=== PATIENT | male | born 1950 | race Caucasian/White ===

== ENCOUNTER 2020-08-01 14:18 | Inpatient (IN) | payer MEDICARE, SELFPAY ==
[2020-08-01 14:26] VITALS: BP 152/84; PULSE 78; RESP 18; TEMP 36.6; O2SAT 95; BMI 27.0; BMI 27.1
[2020-08-01 14:56] VITALS: O2SAT 94
--- NOTE | 2020-08-01 16:03 | HP.PCM_ITS ---
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 Started when he was in his 20's (13) Depression Status: Suspected (14) Presbycusis of both ears Status: Chronic (15) Mild left atrial enlargement Status: Chronic (16) Contusion of forehead Status: Acute Qualifiers: Encounter type: subsequent encounter Qualified Code(s): S00.83XD - Contusion of other part of head, subsequent encounter History of Present Illness Date of Admission: 08/01/20 Chief Complaint: debility due to recent PICA ischemic infarct with gait instability, poor static and dynamic balance, poor safety awareness and cognitive dysfunction Fantasma Villaseñor is a 69 YO male With a past medical history of hypertension, HLD, tobacco dependence, presbycusis and heavy alcohol consumption who became lightheaded and fell......tells me he does not know if he lost consciousness. He thinks he just got weak and could not get off the floor. He struck hi head and has a large contusion on the R forehead and he broke the right and left nasal bones and the nasal septum. After he laid there for a few hours he was able to get to a chair. The next day his sister went to see him and he was intoxicated (per the records form [facility] yet his alcohol level was less than 3) and since he had hit his head his sister insisted he go to the ED. CT of the head showed a a subacute ischemic infarct of the R cerebellum. MRA of the cerebral circulation showed stenosis of the right vertebral artery and thrombosis of the posterior inferior cerebellar artery. The right carotid was 20% stenosed and the left carotid was 40% stenosed. An echocardiogram showed a normal ejection fraction of 60% with a mildly enlarged left atrium. There were no wall motion abnormalities. He was transferred from [facility] to [facility] acute inpt rehab on 08/01/20 for > 3 hours of therapy daily to restore function at or near his previous baseline. All records from [facility] were reviewed. Fantasma lives by himself. His 3 years ago. He lives in a trailer and he has steps to enter his home. His sister lives near him. Past Medical History Past Medical History (Chronic Problems): Chronic Problems (Last Updated 08/01/20 @ 14:31 by Celine Nicole) Heavy alcohol use (Chronic) 3-4 beers a day Hypertension (Chronic) Hyperlipidemia (Chronic) Stenosis of right vertebral artery (Chronic) Cervical spondylosis (Chronic) Cervical stenosis of spinal canal (Chronic) Tobacco dependence due to cigarettes (Chronic) 1 PPD currently. Started when he was in his 20's Presbycusis of both ears (Chronic) Mild left atrial enlargement (Chronic) Medical History: Medical History (Last Reviewed 08/01/20 @ 17:[address] Oliva Eden, DO) Alcohol abuse F10.10 Hyperlipemia E78.5 HTN (hypertension) I10 Allergies No Known Allergies Allergy (Verified 08/01/20 14:32) Home Medications: Ambulatory Orders Medication Instructions Recorded Aspirin 81 mg PO 08/01/20 Atorvastatin Calcium [Lipitor] 40 mg PO QHS 08/01/20 Lisinopril [Zestril] 20 mg PO 08/01/20 No122/Iron/Folic Acid 08/01/20 [ Multi Tablet] Thiamine HCl [B-1] 100 mg PO 08/01/20 Surgical History: noncontributory Lives: Alone Smoking Status: Current every day smoker Tobacco Use: Cigarettes - 1 PPD Alcohol: Heavy - 3-4 beers a day for many years. Denies any hard liquor Drugs: None - *Family History Maternal History Items: - - He tells me that his mother at the age of 98 and she passed with old age Paternal History Items: - - father with dementia Sibling History Items: - - He has 5 siblings and he tells me they have no medical pro blems Review of Systems Constitutional: Reports: Weakness. Denies: Anorexia, Chills, Fever Eyes: Denies: Vision Change HEENT: Reports: Difficulty Hearing. Denies: Difficulty Swallowing, Head Aches, Nasal Congestion, Sinus Congestion, Sinus Drainage, Sore Throat Cardiovascular: Reports: Light Headedness - prior to passing out recently. Denies any other syncopal episodes but he does get lightheaded. Denies: Chest Pain, Palpitations Respiratory: Denies: Cough, Shortness of breath at rest, Shortness of breath upon exertion - Tells me that he can walk to the mailbox and back with no SOB., Sputum production Gastrointestinal: Denies: Abdominal Pain, Constipation, Diarrhea, Dyspepsia, Nausea, Vomiting Genitourinary: Denies: Dysuria, Retention Musculoskeletal: Denies: Joint Pain, Joint Tenderness Skin: Reports: Wounds - he has a large contusion on the R forehead and there is dried blood secondary to laceration/abrasion. He also has a skin tear/abrasi onnon the right forearm. Denies: Jaundice, Rash Neurological: Reports: Balance problems. Denies: Change in Speech, Slurred speech, Confusion, Difficulty swallowing, Focal weakness, Numbness, Tingling, Tremor, Seizures Psychiatric: Denies: Anxiety, Depression, Homicidal Ideations, Suicidal Ideations Endocrine: Reports: - - denies any recent wt loss. 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 (Acute) Mass of parotid gland (Acute) masses in BL Parotid glands Cognitive dysfunction (Acute) Depression (Suspected) - Physical Exam Vitals/I&O's: Vital Signs Temp Pulse Resp BP Pulse Ox 97.9 F 78 18 152/84 H 95 08/01/20 14:26 08/01/20 14:26 08/01/20 14:26 08/01/20 14:26 08/01/20 14:26 Oxygen Delivery Method Room Air Weight: 194 lb 0.108 oz Body Mass Index (BMI) 27.0 General: Alert, Oriented x3, Cooperative HEENT: PERRLA, EOMI, Normocephalic, - - large contusion on the R forehead with dried blood/eschar Oral: Dry Mucosa, - - missing teeth Neck: Supple, No JVD, Negative Carotid Bruits, No Nuchal Rigidity, Trachea Midline Lungs: Clear to auscultation, Diminished, - - Not tachypneic, no conversational dyspnea, no accessory muscle use. Cardiovascular: Regular rate, Regular Rhythm, Normal S1, Normal S2, No murmurs, No Gallop, - - heart sounds are distatnt Abdomen: Bowel Sounds Present, Soft, Non Tender, Non-Distended Extremities: No cyanosis, No edema, Capillary Refill Less than 3 Seconds, No Calf Tenderness Skin: No rashes, No breakdown, Skin Tear - R forearm Musculoskeletal: No Tenderness to Palpation of Joints or Extremities, No Muscle Wasting, Arthritic Changes Neurological: Cranial nerves II-XII grossly intact, Neuro grossly intact - grossly intact when lying in bed but when he stands he can not maintain his balance and he is unaware of his deficits. Poor safety awareness, Motor Exam 5/5 strength throughout, Unsteady Gait, Muscle tone normal Psych/Mental Status: Appropriate, Flat Affect Current Medications Bisacodyl (Bisacodyl 10 Mg Suppository) 10 mg RECTAL .PRN X 1 PRN PRN Reason: Constipation Magnesium Hydroxide (Magnesium Hydroxide 30 Ml Udc) 30 ml PO .PRN X 1 PRN PRN Reason: Constipation Senna/Docusate Sodium (Senna/Docusate Sodium 1 Tablet) 2 tablet PO BID [facility] Assessment/Plan All Active Problems (Last Updated 08/01/20 @ 14:31 by Celine Nicole) Closed fracture nose (Acute) Glucose intolerance (impaired glucose tolerance) (Acute) 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 Debility secondary to recent right cerebellar ischemic infarct due to thrombosis of the posterior inferior cerebellar artery. 2. Bilateral carotid stenosis-both less than 50% 3. Mild left atrial enlargement 4. Contusion right forehead-open 5. heavy alcohol use 6. dysrhythmia? If he truly drinks only 3-4 beers a day and he has done this for years I doubt he he fell due to intoxication. I am suspecting he had some sort of cardiac dysrhythmia and passed out.......he does have LAE so maybe AF with RVR? 7. tobacco dependence 8. HLD 9. HTN 10. presbycusis 11. COPD suspected 12. Depression suspected 13. fracture of the R and L nasal bones and the nasal septum due to the fall.......I think he passed out and then face planted with no attempt to break his fall 14. multiple BL parotid masses....painless. Possible Warthin's tumors which are like related to smoking but, could be malignant with combined smoking and drinking PLAN PT for gait stability OT for ADL's ST for evaluation Analgesics as needed Bowel protocol Fall precautions Assess for Anxiety/Depression GI prophylaxis with Lovenox DVT prophylaxis not necessary. No hx of PUD and he has no N/V/abd pain Follow up with Dr. Dario Toscano and neurology following DC from [facility] Rehab AM lab including CMP, CBC, Mag and Phos Holtor at DC and then follow up with cardiology Follow up with ENT post DC for possible BX of parotid tumors Start an SSRI for depression Smoking cessation was discussed with Fantasma and he was advised that cigarette smoking is the leading preventable cause of mortality in the [place]. The 3 major causes of smoking-related mortality are atherosclerotic cardiovascular diseases, lung cancer and COPD. Up to 1/2 of all smokers can expect to of a smoking related illness. Smoking also increases the risk for Infections, Diabetes, Osteoporosis, Reproductive disorders, PUD, peridontal disease and postoperative complications. Nicotine is a potent psychoactive drug that causes physical dependence and tolerance. Nicotine withdrawal sx inluding increased appetite or weight gain, depressed mood, insomnia, irritability, frustration, anxiety, difficulty concentrating and restlessness were discussed. Fantasma was advised that the withdrawal symptoms generally peak in the first 3 days and subside over the next 3-4 weeks but cravings may continue for months to years. Both Behavioral and pharmacologic therapies were discussed with the patient and he was given an opportunity to ask questions. All questions were answered and he was made aware of the smoking cessation program at [facility]. A Nicotine patch was offered but he declined. He has tried this in the past to stop smoking and it did not help. I also advised him to decrease/stop ETOH intake. He has been isolated with very little social contact and this is liekly contributing to depression. He only goes grocery shopping once a week and he mostly sits home and watches TV. He sleeps because he is bore. Best friend moved [address] and he does not visit. 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 He does not exercise. He used to cut wood for exercise but he had back pain and could not do this anymore. Even though the back pain has resolved he did not start chopping wood again. He would likely benefit from psychotherapy going forward. Inpatient E&M: 17668 Init Hosp L3
--- NOTE | 2020-08-01 16:03 | CASEMGMT ---
Social Work Patient with CVA as diagnosis for admission. PHQ-9 assessment completed with score of . Caro TOBAR, ARIELAS
--- NOTE | 2020-08-01 17:50 | PCM.RU.PYE ---
Admission Information Primary Diagnosis:: Physical debility and cognitive dysfunction secondary to recent ischemic right posterior inferior cerebellar artery occlusion with infarct Status Changes from Prescreening?: No changes Identified Actual Problem List:: Falls, Skin Intergrity, Pain, ALteration in Cmfrt, Cognitve Impr/Memory Loss, Depression, Mobility Impaired, Self Care Deficit, BP, Hypertension, Alteration-Leisure Activ. Potential Problem List:: DVT, Bleeding, Infection, UTI, Aspiration, Falls, Skin Integrity, Depression Risk of Complications DVT: LMWH, LETTY Hose Bleeding: Monitor Lab Values, Nursing to Teach Precautions for anti-coagulation therapy., Wound, if applicable, to be assessed every shift., Stroke patients assessed for lethargy or change in status. Infection: Clinical Staff to Monitor for S/S of infection:, S/S of infection include fever, redness, warmth, etc. Urinary Tract Infection: Monitor for frequency, burning, discomfort, or incontinence., Nursing will obtain urine sample for urinalysis and C&S when ordered. Aspiration: Clinical staff will monitor for coughing, drooling, congestion., Speech will evaluate swallowing and dsyphasia., Nursing will monitor patient swallowing during meals. Falls: Patient will be evaluated for Fall Precautions, Patient will be placed on Fall Precautions as indicated per protocol. Skin Breakdown: Nursing will assess skin daily using assessment tool., Nursing will place on Skin Breakdown Precautions as indicated. Pain: Clinical staff will assess patient's pain level per protocol., Medications will be given, if needed, and the pain level reassessed., Other methods: Massage, distraction, decrease stimulus, etc. used PRN. Plan of Care Patient requires physician specializing in physical medicine and rehab oversight to provide close medical supervision of rehab issues including: Pain Management, Sleep Problems, Bowel and Bladder, Medical and co-morbidity Management, DVT prophylaxis, Rehabilitation Leadership, Coordination of treatment team Patient needs Physical Therapy: For a minimum of 1 hour, At least 5 out of 7 days Patient needs Physical Therapy to improve:: Mobility, Mobility, Mobility, Strengthening, Transfers, Stretching, ROM, Endurance, Stairs, Gait, Balance Patient needs Occupational Therapy: For a minimum of 1 hour, At least 5 out of 7 days Patient needs Occupational Therapy to improve ADL's incl.: Eating, Grooming, Bathing, Dressing, Toileting, Toilet transfers, Community Reintegration, Higher functioning activities, Household tasks, Adaptive Equipment, Splinting, Other activities as determined Patient requires speech therapy: For a minimum of 1 hour, At least 5 out of 7 days Patient requires speech therapy for: Swallowing, Cognition, Language Skills, Compensatory Strategies Patient requires 24/ Rehabilitation Nursing for: Pain Issues, Identifying and preventing risk factors, Monitoring and reporting current medical conditions, Assisting with ambulation, transfer, and all ADL's, Teaching patients about disease process and medications, Family teaching, Providing safe environment, Bowel and Bladder Issues, Skin integrity, Medication Management Patient needs Res Habilitation Assistant/ Case Management for: Discharge Planning, Arranging Home Equipment or Services, Family Interventions Patient needs Dietary and Nutrition Services for: Adequate Nutrition, Nutritional Supplements, Nutritional Education Goals Patient will remain: free from falls, or injury at time of discharge. Patient will perform bed mobility at: MOD I level of assist. Patient will complete transfers from bed to chair at: MOD I level of assist. Patient will ambulate: 100 feet, with MOD I assist, with LRD Patient will complete upper body dressing at: MOD I level of assist. Patient will complete lower body dressing at: MOD I level of assist. Patient will complete toileting at: MOD I level of assist. Patient will perform bathing at: MOD I level of assist. Patient will complete grooming at: MOD I level of assist. Patient will complete home management skills at: MOD I level of assist. Patient will achieve: 12 stairs, at MOD I assist Patient will have pain level of: of 3 or less Patient's skin will: remain intact, free from infection. Patient will receive: adequate nutrition. Discharge Planning Pt Prognosis for Sig. Practical Improv. w/in Reasonable Time: Good Estimated Length of stay (days): 21 Anticipated D/C Destination: Home with Home Health Was Preadmission Assessment Accurate?: Yes
[2020-08-01 20:50] VITALS: BP 111/64; BP 123/61; BP 129/60; PULSE 59; PULSE 76; PULSE 80
[2020-08-01] MEDS: Atorvastatin Calcium 40 MG Tablet PO (21:07)
[2020-08-01 22:00] VITALS: BP 104/55; PULSE 83; RESP 18; TEMP 36.7; O2SAT 93
[2020-08-02 06:16] VITALS: BP 123/81; BP 126/67; BP 146/77; PULSE 74; PULSE 85; PULSE 88
[2020-08-02 06:32] VITALS: O2SAT 95
[2020-08-02 06:42] LABS: Hematocrit 44.5 % (40-54); Hemoglobin 15.1 g/dL (13.0-16.5); Mean Corp Hgb Conc 33.9 g/dL (32-36); Mean Corpuscular Hgb 32.5 pg (27.0-32.0); Mean Corpuscular Volume 95.9 fL (80-94); Mean Platelet Vol. 10.7 fl (6.2-12.0); Platelet Count 254 K/mm3 (150-450); RBC Distribution Width CV 12.2 % (11.6-14.6); RBC Distribution Width SD 42.8 fl (35.1-43.9); Red Blood Count 4.64 M/mm3 (4.6-6.2)
[2020-08-02 07:30] VITALS: BP 147/78; PULSE 76; RESP 16; TEMP 36.4; O2SAT 94
[2020-08-02 08:22] LABS: ALB/GLOB Ratio 0.9 RATIO (0.9-2.4); AST(SGOT) 43 U/L (15-37); Alanine Aminotransfer ALT/SGPT 40 U/L (16-61); Albumin, Serum 3.3 g/dL (3.2-5.0); Alkaline Phosphatase 74 U/L (45-117); Anion Gap 7 (5-15); BUN 18 mg/dL (7-18); BUN/Creat Ratio 29.1 RATIO (10-20); Calcium,Total 8.7 mg/dL (8.5-10.1); Chloride 102 mmol/L (98-107); Cholesterol 129 mg/dL (200); Creatinine, Serum 0.62 mg/dL (0.70-1.30); EST Glomerular Filtration Rate 136 mL/min (>60); Est Glom Filt Rate - Afr Amer 165 mL/min (>60); Estimated Creatinine Clearance 72.16 ml/min; Globulin 3.7 g/dL (2.2-4.2); Glucose 99 mg/dL (74-106); High Density Lipoprotein 32 mg/dL; Magnesium 2.1 mg/dL (1.6-2.6); Phosphorus 3.4 mg/dL (2.5-4.9); Potassium 3.9 mmol/L (3.5-5.1); Sodium Level 132 mmol/L (136-145); Triglycerides 95 mg/dL; Very Low Density Lipoprotein 19 mg/dL (5-40)
[2020-08-02] MEDS: Sertraline 50 MG Tablet PO (08:25)
[2020-08-02] MEDS: Thiamine Hydrochloride 100 MG Tablet PO (08:25)
[2020-08-02] MEDS: Aspirin 81 MG TAB.CHEW PO (08:25)
[2020-08-02] MEDS: Lisinopril 20 MG Tablet PO (08:25)
[2020-08-02] MEDS: Enoxaparin 40 MG/0.4 ML Syringe SC (08:25)
[2020-08-02] MEDS: Prenatal Vits Tablet 1 TABLET PO (12:23)
[2020-08-02] MEDS: Atorvastatin Calcium 40 MG Tablet PO (20:40)
[2020-08-02 20:42] VITALS: PULSE 85; RESP 18; O2SAT 94
[2020-08-02] MEDS: Nystatin Powder 15gm Bottle 1 APPLIC TOPICAL (21:46)
[2020-08-02 22:00] VITALS: BP 121/64; PULSE 85; RESP 18; TEMP 36.6; O2SAT 94
[2020-08-03 07:30] VITALS: BP 110/62; BP 121/60; BP 124/91; PULSE 80; PULSE 81
[2020-08-03 08:00] VITALS: O2SAT 96
[2020-08-03] MEDS: Sertraline 50 MG Tablet PO (08:57)
[2020-08-03] MEDS: Enoxaparin 40 MG/0.4 ML Syringe SC (08:57)
[2020-08-03] MEDS: Lisinopril 20 MG Tablet PO (08:57)
[2020-08-03] MEDS: Thiamine Hydrochloride 100 MG Tablet PO (08:58)
[2020-08-03] MEDS: Aspirin 81 MG TAB.CHEW PO (08:58)
[2020-08-03 10:00] VITALS: BP 140/73; PULSE 66; RESP 16; TEMP 36.6; O2SAT 95
[2020-08-03] MEDS: Prenatal Vits Tablet 1 TABLET PO (13:21)
--- NOTE | 2020-08-03 14:00 | NURSING ---
Left patients sister a message regarding team meeting day.
[2020-08-03 18:54] VITALS: BP 122/65; PULSE 66; RESP 17; TEMP 36.6; O2SAT 94
[2020-08-03] MEDS: Atorvastatin Calcium 40 MG Tablet PO (19:53)
[2020-08-03] MEDS: Nystatin Powder 15gm Bottle 1 APPLIC TOPICAL (19:54)
[2020-08-04] MEDS: Enoxaparin 40 MG/0.4 ML Syringe SC (05:02)
[2020-08-04] MEDS: Nystatin Powder 15gm Bottle 1 APPLIC TOPICAL ×2 (05:03→21:55)
[2020-08-04] MEDS: Aspirin 81 MG TAB.CHEW PO (08:11)
[2020-08-04] MEDS: Thiamine Hydrochloride 100 MG Tablet PO (08:11)
[2020-08-04] MEDS: Lisinopril 20 MG Tablet PO (08:11)
[2020-08-04] MEDS: Sertraline 50 MG Tablet PO (08:11)
[2020-08-04 09:11] VITALS: BP 154/71; PULSE 65; RESP 16; TEMP 36.6; O2SAT 92
[2020-08-04] MEDS: Prenatal Vits Tablet 1 TABLET PO (11:37)
--- NOTE | 2020-08-04 19:07 | NURSING ---
UP x1 assist with walker, gait steady. Needs assistance with toileting mod assist and dressing mod assist.
--- NOTE | 2020-08-04 19:10 | NURSING ---
Refused to ambulate with staff in pa when offered.
[2020-08-04] MEDS: Atorvastatin Calcium 40 MG Tablet PO (21:52)
[2020-08-04 22:00] VITALS: BP 150/67; PULSE 81; RESP 16; TEMP 36.3; O2SAT 95
[2020-08-05] MEDS: Enoxaparin 40 MG/0.4 ML Syringe SC (05:42)
[2020-08-05] MEDS: Nystatin Powder 15gm Bottle 1 APPLIC TOPICAL ×2 (05:57→21:25)
[2020-08-05 07:42] VITALS: BP 164/80; PULSE 69; RESP 16; TEMP 36.4; O2SAT 93
[2020-08-05] MEDS: Sertraline 50 MG Tablet PO (08:09)
[2020-08-05] MEDS: Aspirin 81 MG TAB.CHEW PO (08:09)
[2020-08-05] MEDS: Thiamine Hydrochloride 100 MG Tablet PO (08:09)
[2020-08-05] MEDS: Lisinopril 20 MG Tablet PO (08:10)
--- NOTE | 2020-08-05 10:47 | CASEMGMT ---
Social Work IDT met with patient and brother via conference call for Team meeting. Discussed patient's progress in therapy and nursing. Pt progressing well. St working on memory with meds/finances. Pt started on antidepressant. Pt is usually isolated at home and not much interaction with family or friends. Brother offered for pt to stay with sister at DC for a few weeks. Pt doesn't feel he will need the assistance. Explained Medicare approved 23 days with [facility]C 08/25. Will ReTeam next week to continue to discuss progress. SW to assist with DC plans. Will continue to follow. Zuleima Kolb, AMADOU DEEW
[2020-08-05] MEDS: Prenatal Vits Tablet 1 TABLET PO (12:02)
--- NOTE | 2020-08-05 13:14 | PN_ITS ---
Progress Note Merary was seen on team rounds today. His brother Efra participated by phone. Afebrile VSS The systolic BP is frequently mildly elevated but the diastolic is within the target range. He is tilt negative. Maintaining appropriate oxygen saturation on RA Oral intake is good Post void residuals so far have been 255 and 389. Discussed with nursing - no problems that need addressed Reviewed the PT/OT/ST notes Medication list reviewed. He is tolerating the Zoloft with no N/V/stomach upset. All labs from 08/02/2020 was once again reviewed. The CBC is unremarkable. Sodium was mildly decreased at 32 and the BUN is 18 with a creatinine of 0.62. Potassium is 3.9. Magnesium and phosphorus are within normal limits. LFTs are unremarkable. The LDL was 78 which is still not at target but he was only recently started on atorvastatin. The HDL is low at 32. Merary has no complaints today. He denies shortness of breath, cough, sore th roat, nausea, vomiting, abdominal pain, calf pain, dysuria. His brother tells us merary has always related to motor vehicles better than to people. Family seems very supportive. His sister Eva has offered to have Merary Bridgefy to her house for a few weeks after DC but, Merary was immediately opposed to this and stated he can do everything he needs to do for himself without help. Alert, appropriate Mucous membranes are dry, the neck is supple Lungs-clear to auscultation but diminished with no wheezes and no rales Heart-regular rate and rhythm, no ectopy, no gallop Abdomen-soft and nontender No peripheral edema No calf tenderness No rashes and no skin breakdown. The laceration of the right forehead is intact with dried blood present and the sutures are still present. Impressions 1. post stroke debility 2. HLD 3. Low HDL 4. HTN 5. urine retention 6. Hyponatremia 7. hx of heavy ETOH use 8. Depression 9. Tobacco dependence 10. Contusion right forehead secondary to fall requiring sutures 11. Fracture of right and left nasal bones and nasal septum due to a fall 30 day monitor at DC Continue therapy Add Amlodipine 2.5 mg to the current drug regimen for better BP control Check a TSH, urine sodium urine and serum osmolality Will remove the sutures on the 10th Inpatient E&M: 74944 Subs Hosp L2
[2020-08-05 15:22] LABS: Osmolality, Serum 280 mOsm/KG (280-301)
[2020-08-05 15:37] LABS: Thyroid Stim Hormone (TSH) 1.22 uIU/mL (0.358-3.74)
[2020-08-05 20:59] VITALS: BP 151/60; PULSE 82; RESP 16; TEMP 36.5; O2SAT 97
[2020-08-05 21:20] VITALS: PULSE 82; RESP 16; O2SAT 97
[2020-08-05] MEDS: Atorvastatin Calcium 40 MG Tablet PO (21:25)
--- NOTE | 2020-08-06 00:38 | NURSING ---
1999 pt turned monitor and storage bin tender light and by the time the electrician substation arrived pt had transferred himself with his urinal to the br. pt stated to the electrician substation i just couldn't wait'. pt had removed his pa to get to the br, when pt went to stand up and lost his balance and was caught by electrician substation. electrician substation assisted pt back to the bed with the walker and one assist. bed alarm was turned for pt safety. pt reeducated on getting up on own and safety to prevent falls
--- NOTE | 2020-08-06 01:49 | NURSING ---
0045 bed alarm going off and pt was at the foot of the bed getting to get when global cmo entered the room, pt had made no attempt to use call light. global cmo assisted pt to the br and pt had a lg amount of diarrhea , upon returning to bed pt became nauseated and started dry heaving. staff went back to see pt and he denied any intervention needed. will continue to monitor, rn aware
[2020-08-06 03:32] LABS: Urine Sodium 73 mmol/L (Not Establ.)
[2020-08-06 03:45] LABS: Osmolality, Urine 892 mOsm/KG
--- NOTE | 2020-08-06 05:00 | NURSING ---
Reviewed and agree with BORDERER documentation and charting.
[2020-08-06 07:07] VITALS: BP 161/79; PULSE 75; RESP 18; TEMP 36.4; O2SAT 93
[2020-08-06] MEDS: Nystatin Powder 15gm Bottle 1 APPLIC TOPICAL ×2 (07:10→20:41)
[2020-08-06] MEDS: Enoxaparin 40 MG/0.4 ML Syringe SC (07:19)
[2020-08-06] MEDS: Aspirin 81 MG TAB.CHEW PO (08:39)
[2020-08-06] MEDS: Thiamine Hydrochloride 100 MG Tablet PO (08:39)
[2020-08-06] MEDS: amLODIPine 2.5 MG Tablet PO (08:39)
[2020-08-06] MEDS: Lisinopril 20 MG Tablet PO (08:39)
[2020-08-06] MEDS: Sertraline 50 MG Tablet PO (08:39)
[2020-08-06] MEDS: Prenatal Vits Tablet 1 TABLET PO (12:08)
[2020-08-06 20:00] VITALS: PULSE 88; RESP 18; O2SAT 94
[2020-08-06] MEDS: Atorvastatin Calcium 40 MG Tablet PO (20:39)
[2020-08-06 21:02] VITALS: BP 143/64; PULSE 88; RESP 18; TEMP 36.3; O2SAT 94
--- NOTE | 2020-08-07 03:48 | NURSING ---
Reviewed and agree with SNOW PLOW TRACTOR OPERATOR documentation and charting.
[2020-08-07] MEDS: Enoxaparin 40 MG/0.4 ML Syringe SC (04:55)
[2020-08-07] MEDS: Nystatin Powder 15gm Bottle 1 APPLIC TOPICAL ×2 (04:56→20:15)
--- NOTE | 2020-08-07 05:09 | NURSING ---
sutures removed from lacerations from pt forehead as per order, 11 sutures were counted, pt reports that he was to have 15 sutures. scab to laceration was thick and intact to the laceration it was difficult to tell if all the sutures were removed at this time. steri-strips were applied to laceration after cleansing with ns and then left open to air. pt tolerated the removal of the sutures fair. rn aware of the amount of sutures that were removed
[2020-08-07] MEDS: Aspirin 81 MG TAB.CHEW PO (08:04)
[2020-08-07] MEDS: Sertraline 50 MG Tablet PO (08:04)
[2020-08-07] MEDS: Lisinopril 20 MG Tablet PO (08:04)
[2020-08-07] MEDS: amLODIPine 2.5 MG Tablet PO (08:04)
[2020-08-07] MEDS: Thiamine Hydrochloride 100 MG Tablet PO (08:04)
[2020-08-07 08:28] VITALS: BP 148/81; PULSE 78; RESP 16; TEMP 36.3; O2SAT 96
[2020-08-07] MEDS: Prenatal Vits Tablet 1 TABLET PO (13:40)
[2020-08-07] MEDS: Atorvastatin Calcium 40 MG Tablet PO (20:15)
[2020-08-07 22:00] VITALS: BP 142/74; PULSE 76; RESP 16; TEMP 36.6; O2SAT 95
--- NOTE | 2020-08-08 02:28 | NURSING ---
pt having diarrhea. pt cleaned up by peanut sheller
[2020-08-08] MEDS: Enoxaparin 40 MG/0.4 ML Syringe SC (04:04)
[2020-08-08] MEDS: Nystatin Powder 15gm Bottle 1 APPLIC TOPICAL ×2 (04:05→22:52)
[2020-08-08 07:33] VITALS: BP 141/69; PULSE 79; RESP 18; TEMP 36.6; O2SAT 96
[2020-08-08] MEDS: amLODIPine 2.5 MG Tablet PO (08:10)
[2020-08-08] MEDS: Aspirin 81 MG TAB.CHEW PO (08:10)
[2020-08-08] MEDS: Lisinopril 20 MG Tablet PO (08:10)
[2020-08-08] MEDS: Thiamine Hydrochloride 100 MG Tablet PO (08:10)
[2020-08-08] MEDS: Sertraline 50 MG Tablet PO (08:11)
[2020-08-08] MEDS: Loperamide 2 MG Capsule 4 MG PO (09:52)
[2020-08-08] MEDS: Prenatal Vits Tablet 1 TABLET PO (12:36)
--- NOTE | 2020-08-08 15:12 | PN_ITS ---
Progress Note Afebrile VSS Systolic blood pressure is consistently over goal now ranging from 1 41-1 64 over the past 5 days. He was started on Amlodipine on 08/06 Maintaining appropriate oxygen saturation on RA Oral intake is fair at best. Weight has decreased approximately 2 pounds since 08/02/2020. Discussed with nursing - no problems that need addressed Reviewed the PT/OT/ST notes. He is progressing well in therapy. Today he ambulated 117 feet x 4 and 610 feet x 1 with a front wheeled walker at standby assist. He was able to do the NuStep for 10 minutes. He has been able to climb and descend 3 steps. He is able to dress his lower body with contact-guard assist. He is able to perform toilet transfer at standby assist. Medication list reviewed. All recent lab was personally reviewed. Sodium was 132 with a normal serum osmolality and a urine osmolality of 892. The urine random sodium was 73. TSH was normal at 1.22. He had loose stools through the night. Imodium has been ordered PRN and he has refused the stool softeners since admission Denies pain. Denies CP, SOB, palpitations, N/V. Denies lightheadedness Lungs -diminished, not tachypneic, no accessory muscle use, no conversational dyspnea Hard of hearing Heart-regular rate and rhythm, no gallop Abdomen-soft, nontender, nondistended, bowel sounds are normal No peripheral edema No calf tenderness No rashes and no skin breakdown Impressions 1. post stroke debility 2. HTN 3. tobacco dependence 4. heavy alcohol use 5. depression 6. deconditioning due to isolation and sitting in his trailer eatin, watching TV and drinking for the past year COntinue therapy. allow a few days for the Amlodipine to reach a steady state prior to increasing the dose. Mild HTN now I Suspect he may want to go prior to the scheduled DC date of 08/25. He is doing very well. Recheck a BMP in the AM.....if the sodium is still low check a AM cortisol and if it is normal will trial discontinuing the Sertraline since SSRI's can cause hyponatremia Inpatient E&M: 26067 [facility] Hosp L2
[2020-08-08 19:30] VITALS: BP 127/79; PULSE 94; RESP 18; TEMP 36.4; O2SAT 96
[2020-08-08] MEDS: Atorvastatin Calcium 40 MG Tablet PO (22:48)
[2020-08-09] MEDS: Nystatin Powder 15gm Bottle 1 APPLIC TOPICAL ×2 (05:50→22:23)
[2020-08-09] MEDS: Enoxaparin 40 MG/0.4 ML Syringe SC (05:50)
[2020-08-09 07:34] VITALS: BP 134/73; PULSE 79; RESP 16; TEMP 36.6; O2SAT 94
[2020-08-09 10:00] VITALS: PULSE 79; RESP 16; O2SAT 94
[2020-08-09] MEDS: Sertraline 50 MG Tablet PO (10:10)
[2020-08-09] MEDS: Aspirin 81 MG TAB.CHEW PO (10:10)
[2020-08-09] MEDS: Lisinopril 20 MG Tablet PO (10:10)
[2020-08-09] MEDS: amLODIPine 2.5 MG Tablet PO (10:10)
[2020-08-09] MEDS: Prenatal Vits Tablet 1 TABLET PO (11:58)
--- NOTE | 2020-08-09 12:36 | PCM.PN.BLA ---
Progress Note Afebrile VSS Maintaining appropriate oxygen saturation on RA Oral intake is adequate. He seldom goes over 1500 cc daily and is really self restricting his fluids. [] Discussed with nursing - no problems that need addressed Reviewed the PT/OT/ST notes Medication list reviewed. Fantasma has no complaints today Alert, oriented x3, hard of hearing Mucous membranes moist Lungs-clear to auscultation with good air exchange and he has been using the incentive spirometer religiously. No tachypnea, no conversational dyspnea, no accessory muscle use Heart-regular rate and rhythm without ectopy Abdomen-soft, nontender, nondistended, no guarding with palpation No calf pain No ankle edema No rashes and no skin breakdown Impressions 1. Post stroke debility 2. Hyponatremia 3. Hypertension 4. Glucose intolerance 5. Hyperlipidemia 6. Mild left atrial enlargement BMP Wednesday Continue therapy STROKE Vital Signs/Narrative: Vital Signs Pulse Resp Pulse Ox 08/09/20 10:00 79 16 94 Inpatient E&M: [id number] Subs Hosp L1
[2020-08-09 19:48] VITALS: BP 99/62; PULSE 86; RESP 16; TEMP 36.4; O2SAT 94
[2020-08-09] MEDS: Atorvastatin Calcium 40 MG Tablet PO (22:23)
[2020-08-10] MEDS: Enoxaparin 40 MG/0.4 ML Syringe SC (05:24)
[2020-08-10] MEDS: Nystatin Powder 15gm Bottle 1 APPLIC TOPICAL ×2 (05:24→21:08)
[2020-08-10 07:30] VITALS: BP 147/78; PULSE 62; RESP 16; TEMP 36.4; O2SAT 94
[2020-08-10] MEDS: Senna/Docusate Sodium 1 Tablet 2 TABLET PO (08:03)
[2020-08-10] MEDS: Lisinopril 20 MG Tablet PO (08:03)
[2020-08-10] MEDS: Sertraline 50 MG Tablet PO (08:03)
[2020-08-10] MEDS: amLODIPine 2.5 MG Tablet PO (08:04)
[2020-08-10] MEDS: Aspirin 81 MG TAB.CHEW PO (08:05)
[2020-08-10] MEDS: Prenatal Vits Tablet 1 TABLET PO (11:29)
[2020-08-10 18:57] VITALS: BP 129/75; PULSE 96; RESP 18; TEMP 36.4; O2SAT 96
[2020-08-10] MEDS: Atorvastatin Calcium 40 MG Tablet PO (21:07)
[2020-08-11] MEDS: Nystatin Powder 15gm Bottle 1 APPLIC TOPICAL ×2 (05:39→20:14)
[2020-08-11] MEDS: Enoxaparin 40 MG/0.4 ML Syringe SC (05:39)
[2020-08-11 07:00] VITALS: BP 125/64; PULSE 70; RESP 12; TEMP 36.4; O2SAT 94
[2020-08-11] MEDS: Lisinopril 20 MG Tablet PO (08:05)
[2020-08-11] MEDS: Aspirin 81 MG TAB.CHEW PO (08:06)
[2020-08-11] MEDS: amLODIPine 2.5 MG Tablet PO (08:06)
[2020-08-11] MEDS: Sertraline 50 MG Tablet PO (08:06)
--- NOTE | 2020-08-11 11:32 | NURSING ---
encouraged to ambulate in halls with staff and pt refused.
[2020-08-11] MEDS: Prenatal Vits Tablet 1 TABLET PO (13:01)
[2020-08-11 19:36] VITALS: BP 124/63; PULSE 69; RESP 16; TEMP 36.4; O2SAT 95
[2020-08-11] MEDS: Atorvastatin Calcium 40 MG Tablet PO (20:13)
[2020-08-12 06:25] LABS: Anion Gap 5 (5-15); BUN 16 mg/dL (7-18); BUN/Creat Ratio 31.4 RATIO (10-20); Calcium,Total 8.7 mg/dL (8.5-10.1); Chloride 102 mmol/L (98-107); Creatinine, Serum 0.51 mg/dL (0.70-1.30); EST Glomerular Filtration Rate 170 mL/min (>60); Est Glom Filt Rate - Afr Amer 206 mL/min (>60); Estimated Creatinine Clearance 71.12 ml/min; Glucose 109 mg/dL (74-106); Sodium Level 134 mmol/L (136-145)
[2020-08-12] MEDS: Enoxaparin 40 MG/0.4 ML Syringe SC (06:52)
[2020-08-12] MEDS: Nystatin Powder 15gm Bottle 1 APPLIC TOPICAL (06:52)
[2020-08-12 07:36] VITALS: BP 147/67; PULSE 76; RESP 16; TEMP 36.3; O2SAT 96
[2020-08-12] MEDS: Lisinopril 20 MG Tablet PO (07:43)
[2020-08-12] MEDS: amLODIPine 2.5 MG Tablet PO (07:43)
[2020-08-12] MEDS: Sertraline 50 MG Tablet PO (07:43)
[2020-08-12] MEDS: Aspirin 81 MG TAB.CHEW PO (07:44)
[2020-08-12 09:21] VITALS: PULSE 76; RESP 16; O2SAT 96
--- NOTE | 2020-08-12 11:31 | CASEMGMT ---
Social Work IDT met with patient and sister via conference call for Team meeting. Discussed patient's progress in therapy and nursing. Pt is progressing well. Continuing to trail cane and no AD for goal DC. IDT agreeable to DC prior to Medicare 08/25. Pt agreeable for DC 08/19. Siblings can transport. Pt is safe to return home alone with check ins from siblings and supervision for meds/finances. Sister expressed understanding. Pt has no DME needs. Provided resources for MOW as pt is not allowed to drive at DC. Provided HHC list of in network and in location to pt. Pt chose [facility]. Referral made to PT/OT/ST. Plan: DC home alone with [facility] PT/OT/ST, no DME AMADOU Husain
[2020-08-12] MEDS: Prenatal Vits Tablet 1 TABLET PO (11:54)
--- NOTE | 2020-08-12 11:55 | PCM.PN.BLA ---
Progress Note Fantasma was seen on team rounds today. His Sister Rika participated by phone. Afebrile VSS Maintaining appropriate oxygen saturation on RA Oral intake is adequate Discussed with nursing - no problems that need addressed Reviewed the PT/OT/ST notes Medication list reviewed. Fantasma has no complaints. when his sister suggested Fantasma move in with her for a while at DC he was adamant that he wanted to go home. she works fulltime and he would be alone at her home a good deal of the time. He feels he can be by himself at home and we will continue reconsidering plans for discharge as he progresses in therapy. Alert, oriented x3, appropriate Lungs-diminished but clear to auscultation Heart regular rate and rhythm with occasional ectopic beat, no murmur, no gallop Abdomen-soft nontender No peripheral edema No calf tenderness No evidence of infection of the laceration on the right forehead Impressions 1. 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 Mild left atrial enlargement 3. Heavy alcohol consumption daily 4. Hypertension 5. Increased risk for atrial fibrillation secondary to the above 3 conditions 6. Mild hyponatremia-stable and asymptomatic. Work-up in progress Continue therapy All questions were answered STROKE Vital Signs/Narrative: Vital Signs Pulse Resp Pulse Ox 08/12/20 09:21 76 16 96 Inpatient E&M: [id number] Subs Hosp L2
[2020-08-12 19:38] VITALS: BP 147/83; PULSE 84; RESP 16; TEMP 36.5; O2SAT 97
[2020-08-12 20:10] VITALS: PULSE 84; RESP 16; O2SAT 97
[2020-08-12] MEDS: Atorvastatin Calcium 40 MG Tablet PO (20:22)
[2020-08-12] MEDS: Menthol/Lanolin/Calamine/Znox 113 GM Tube 1 APPLIC TOPICAL (20:43)
--- NOTE | 2020-08-13 02:33 | NURSING ---
Reviewed and agree with PHARMACOVIGILANCE SPECIALIST documentation and charting.
[2020-08-13] MEDS: Enoxaparin 40 MG/0.4 ML Syringe SC (04:55)
--- NOTE | 2020-08-13 06:46 | NURSING ---
pt requested to go to the br, staff remained in room while pt was given privacy in the br. staff then hears pt heaving several times then spitting. rn came to check on pt and pt denied vomiting stating he just has to spit alot. staff was unable to assess if pt was actually spitting or if there was emesis in the trash can d/t therapy came into the room to assist pt getting washed for the day. information passed on to day nurse.
[2020-08-13 07:30] VITALS: BP 154/74; PULSE 73; RESP 16; TEMP 36.5; O2SAT 92
[2020-08-13] MEDS: Sertraline 50 MG Tablet PO (07:34)
[2020-08-13] MEDS: Lisinopril 20 MG Tablet PO (07:34)
[2020-08-13] MEDS: Aspirin 81 MG TAB.CHEW PO (07:34)
[2020-08-13] MEDS: amLODIPine 2.5 MG Tablet PO (07:34)
[2020-08-13] MEDS: Senna/Docusate Sodium 1 Tablet 2 TABLET PO ×2 (07:34→20:10)
[2020-08-13] MEDS: Nystatin Powder 15gm Bottle 1 APPLIC TOPICAL ×2 (07:35→20:13)
[2020-08-13] MEDS: Menthol/Lanolin/Calamine/Znox 113 GM Tube 1 APPLIC TOPICAL ×2 (07:35→20:12)
[2020-08-13 10:00] VITALS: PULSE 73; RESP 16; O2SAT 92
--- NOTE | 2020-08-13 11:28 | PCM.PN.BLA ---
Progress Note Afebrile VSS-systolic blood pressure is still often above goal. The diastolic blood pressure is well controlled. He denies dizziness/lightheadedness. Heart rate is within normal limits. Maintaining appropriate oxygen saturation on RA Oral intake is good Discussed with nursing - no problems that need addressed Reviewed the PT/OT/ST notes Medication list reviewed. No complaints. Denies dizziness/lightheadedness, CP, palpitations. No SOB Alert, oriented x3, pleasant, better eye contact Mucous membranes are little dry which is chronic Lungs-diminished but clear to auscultation throughout. Air exchange has improved since admission. Heart-regular rate and rhythm with occasional premature beat, no murmur, no gallop Abdomen-soft, nontender 5/5 strength throughout, cranial nerves II through XII are grossly intact Impressions 1. Post stroke debility 2. 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 Depression-doing better on sertraline 4. Glucose intolerance with a hemoglobin A1c of 6% 5. Hypertension-the goal is less than 130/80 -he was started on amlodipine and this is gradually being increased to achieve the goal. Check an AM cortisol to r/o hypoadrenalism as the etiology of low sodium. TSH is normal. Urine sodium is 73. Urine is less than maximally dilute. If the cortisol is normal then the likely etiology of the mildly decreased sodium is SIADH (possibly related to CVA) or due to SSRI (however the sodium has actually increased since the SSRI was started and I do not believe this is the etiology. DC date will be 08/19....at patient's request. Discussed on rounds yesterday and the therapy TEAM feels he will be ready to go then STROKE Vital Signs/Narrative: Vital Signs Temp Pulse Resp BP Pulse Ox 08/13/20 07:30 97.7 F L 73 16 154/74 H 92 Inpatient E&M: [id number] Subs Hosp L2
[2020-08-13] MEDS: Prenatal Vits Tablet 1 TABLET PO (11:35)
[2020-08-13 19:19] VITALS: BP 148/92; PULSE 84; RESP 18; TEMP 36.6; O2SAT 97
[2020-08-13 20:05] VITALS: BMI 27.0
[2020-08-13] MEDS: Atorvastatin Calcium 40 MG Tablet PO (20:10)
[2020-08-13 22:00] VITALS: PULSE 79; RESP 17; O2SAT 96
[2020-08-14] MEDS: Nystatin Powder 15gm Bottle 1 APPLIC TOPICAL ×2 (05:40→22:17)
[2020-08-14] MEDS: Enoxaparin 40 MG/0.4 ML Syringe SC (05:40)
--- NOTE | 2020-08-14 05:41 | NURSING ---
Pt self transferred to br. Bed alarm activated and pa removed. Pt reminded by staff of safety protocols in place to ensure pt safety.
[2020-08-14 07:58] VITALS: BP 143/75; PULSE 74; RESP 16; TEMP 36.4; O2SAT 97
[2020-08-14] MEDS: amLODIPine 2.5 MG Tablet PO ×2 (09:11→11:25)
[2020-08-14] MEDS: Aspirin 81 MG TAB.CHEW PO (09:11)
[2020-08-14] MEDS: Sertraline 50 MG Tablet PO ×2 (09:11→11:25)
[2020-08-14] MEDS: Lisinopril 20 MG Tablet PO (09:11)
[2020-08-14] MEDS: Menthol/Lanolin/Calamine/Znox 113 GM Tube 1 APPLIC TOPICAL (09:12)
--- NOTE | 2020-08-14 09:23 | PCM.PN.BLA ---
Progress Note Afebrile VSS-blood pressures have been mildly increased for the past 3 days. Goal blood pressure is less than 130/80 given recent stroke. Maintaining appropriate oxygen saturation on RA Oral intake is fair most days he does not even take more than 1 L daily. He has lost 4 lbs since admission to the rehab unit Discussed with nursing - no problems that need addressed Reviewed the PT/OT/ST notes Medication list reviewed. Labs personally reviewed. The a.m. cortisol today is 23.4. No complaints. Denies chest pain, shortness of breath, cough, nausea, vomiting, abdominal pain, dysuria. Denies lightheadedness, palpitations. Alert, talkative and making good eye contact with me today. He is pleasant and has been interacting with staff on a regular basis now. Lungs-diminished with a few coarse crackles in the bases that mostly cleared after a few deep breaths. Not tachypneic, no conversational dyspnea Heart-regular rate and rhythm Abdomen-soft, nontender, nondistended Mucous membranes are moist today No calf pain No ankle edema No rashes and no skin breakdown Impressions 1. post stroke debility 2. HTN - not at goal yet. Goal is less than 130/80 3. tobacco dependence - has received looking cessation counseling on several occasions while in acute rehab. 4. heavy alcohol use 5. depression 6. deconditioning due to isolation and sitting in his trailer eating, watching TV and drinking for the past year 7. Hyponatremia-most likely secondary to SIADH related to the stroke. No need for treatment at this time he is asymptomatic and the hyponatremia is very mild. If the hyponatremia gets worse we will consider discontinuing the SSRI. Increase the Amlodipine to 5 mg daily Since the AM cortisol and the TSH are OK and the urine is less than maximally dilute with a urine sodium > 20 The most likely diagnosis for the mild hyponatremia at this time is SIADH....more likely than not due to the CVA or SSRI (the sodium was low even before the Sertraline was started. Recheck BMP on Wednesday. Increase the Sertraline to 100 mg. He tells me that he feels better and he thinks the Sertraline is helping him. No adverse GI side effects. We discussed the Covid vaccine and he does not think he needs it. He tells me that when he goes to the grocery store once a week he wears a mask and that he does not interact with people. This is part of the problem with his depression. STROKE Vital Signs/Narrative: Vital Signs Temp Pulse Resp BP Pulse Ox 08/14/20 07:58 97.6 F L 74 16 143/75 H 97 Inpatient E&M: [id number] Subs Hosp L2
[2020-08-14] MEDS: Prenatal Vits Tablet 1 TABLET PO (11:25)
[2020-08-14 17:00] VITALS: BMI 27.0
[2020-08-14 22:00] VITALS: BP 133/64; PULSE 71; RESP 18; TEMP 36.6; O2SAT 97
[2020-08-14] MEDS: Atorvastatin Calcium 40 MG Tablet PO (22:15)
[2020-08-15] MEDS: Nystatin Powder 15gm Bottle 1 APPLIC TOPICAL (05:41)
[2020-08-15] MEDS: Enoxaparin 40 MG/0.4 ML Syringe SC (05:42)
[2020-08-15 07:20] VITALS: BP 150/54; PULSE 85; RESP 18; TEMP 36.4; O2SAT 95
[2020-08-15] MEDS: Aspirin 81 MG TAB.CHEW PO (08:20)
[2020-08-15] MEDS: amLODIPine 5 MG Tablet PO (08:21)
[2020-08-15] MEDS: Sertraline 100 MG Tablet PO (08:21)
[2020-08-15] MEDS: Lisinopril 20 MG Tablet PO (08:21)
[2020-08-15 10:52] VITALS: BMI 27.0
[2020-08-15] MEDS: Prenatal Vits Tablet 1 TABLET PO (11:57)
[2020-08-15] MEDS: Ketoconazole Cream 1 APPLIC TOPICAL ×2 (12:23→20:54)
[2020-08-15 20:05] VITALS: BP 152/69; PULSE 77; RESP 16; TEMP 36.6; O2SAT 94
[2020-08-15] MEDS: Atorvastatin Calcium 40 MG Tablet PO (20:55)
[2020-08-16] MEDS: Enoxaparin 40 MG/0.4 ML Syringe SC (06:03)
[2020-08-16 07:41] VITALS: BP 141/82; PULSE 74; RESP 16; TEMP 36.6; O2SAT 96
[2020-08-16] MEDS: Aspirin 81 MG TAB.CHEW PO (07:42)
[2020-08-16] MEDS: amLODIPine 5 MG Tablet PO (07:42)
[2020-08-16] MEDS: Lisinopril 20 MG Tablet PO (07:43)
[2020-08-16] MEDS: Ketoconazole Cream 1 APPLIC TOPICAL ×2 (07:43→22:05)
[2020-08-16] MEDS: Sertraline 100 MG Tablet PO (07:43)
[2020-08-16] MEDS: Prenatal Vits Tablet 1 TABLET PO (11:25)
[2020-08-16 15:17] VITALS: BMI 27.0
[2020-08-16 22:00] VITALS: BP 121/67; PULSE 79; RESP 18; TEMP 36.6; O2SAT 96
[2020-08-16] MEDS: Atorvastatin Calcium 40 MG Tablet PO (22:04)
[2020-08-16] MEDS: Nystatin Powder 15gm Bottle 1 APPLIC TOPICAL (22:06)
[2020-08-17 01:38] VITALS: BMI 27.0
[2020-08-17] MEDS: Enoxaparin 40 MG/0.4 ML Syringe SC (05:44)
[2020-08-17] MEDS: Nystatin Powder 15gm Bottle 1 APPLIC TOPICAL (05:48)
[2020-08-17 07:03] VITALS: BP 164/83; PULSE 74; RESP 16; TEMP 36.3; O2SAT 92
[2020-08-17] MEDS: Lisinopril 20 MG Tablet PO (08:58)
[2020-08-17] MEDS: Aspirin 81 MG TAB.CHEW PO (08:58)
[2020-08-17] MEDS: Ketoconazole Cream 1 APPLIC TOPICAL ×2 (08:58→20:53)
[2020-08-17] MEDS: amLODIPine 5 MG Tablet PO (08:59)
[2020-08-17] MEDS: Sertraline 100 MG Tablet PO (08:59)
[2020-08-17] MEDS: Prenatal Vits Tablet 1 TABLET PO (13:23)
[2020-08-17 16:00] VITALS: BMI 27.0
[2020-08-17 19:20] VITALS: BP 141/76; PULSE 77; RESP 16; TEMP 36.5; O2SAT 98
[2020-08-17] MEDS: Atorvastatin Calcium 40 MG Tablet PO (20:52)
[2020-08-17] MEDS: Menthol/Lanolin/Calamine/Znox 113 GM Tube 1 APPLIC TOPICAL (20:55)
[2020-08-17 21:01] VITALS: BMI 27.0
[2020-08-17 22:00] VITALS: PULSE 77; RESP 16
[2020-08-18] MEDS: Enoxaparin 40 MG/0.4 ML Syringe SC (06:24)
[2020-08-18] MEDS: Nystatin Powder 15gm Bottle 1 APPLIC TOPICAL (06:26)
[2020-08-18 07:26] LABS: Anion Gap 6 (5-15); BUN 17 mg/dL (7-18); BUN/Creat Ratio 33.1 RATIO (10-20); Calcium,Total 8.7 mg/dL (8.5-10.1); Chloride 102 mmol/L (98-107); Creatinine, Serum 0.51 mg/dL (0.70-1.30); EST Glomerular Filtration Rate 168 mL/min (>60); Est Glom Filt Rate - Afr Amer 204 mL/min (>60); Estimated Creatinine Clearance 71.12 ml/min; Glucose 121 mg/dL (74-106); Potassium 3.8 mmol/L (3.5-5.1); Sodium Level 133 mmol/L (136-145)
[2020-08-18] MEDS: Aspirin 81 MG TAB.CHEW PO (07:57)
[2020-08-18] MEDS: amLODIPine 5 MG Tablet PO (07:57)
[2020-08-18] MEDS: Sertraline 100 MG Tablet PO (07:57)
[2020-08-18] MEDS: Lisinopril 20 MG Tablet PO (07:57)
[2020-08-18 08:35] VITALS: BP 142/75; PULSE 75; RESP 16; TEMP 36.3; O2SAT 98
[2020-08-18] MEDS: Prenatal Vits Tablet 1 TABLET PO (12:08)
[2020-08-18 16:02] VITALS: BMI 27.0
[2020-08-18 19:10] VITALS: BP 150/75; PULSE 86; RESP 18; TEMP 36.7; O2SAT 95
[2020-08-18] MEDS: Atorvastatin Calcium 40 MG Tablet PO (21:34)
[2020-08-18] MEDS: Menthol/Lanolin/Calamine/Znox 113 GM Tube 1 APPLIC TOPICAL (21:34)
[2020-08-18 21:35] VITALS: BMI 27.0
[2020-08-18 22:00] VITALS: PULSE 80; RESP 17
[2020-08-19] MEDS: Enoxaparin 40 MG/0.4 ML Syringe SC (06:35)
[2020-08-19 06:59] VITALS: BP 123/66; PULSE 73; RESP 16; TEMP 36.3; O2SAT 95
[2020-08-19] MEDS: Aspirin 81 MG TAB.CHEW PO (08:33)
[2020-08-19] MEDS: amLODIPine 5 MG Tablet PO (08:33)
[2020-08-19] MEDS: Lisinopril 20 MG Tablet PO (08:33)
[2020-08-19] MEDS: Sertraline 100 MG Tablet PO (08:33)
[2020-08-19 09:52] VITALS: BMI 27.0
--- NOTE | 2020-08-19 11:49 | PCM.DC ---
- Discharge Diagnoses Current Active Problems: Current Active and Chronic Problems (Last Reviewed 08/01/20 @ 17:[address] 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 Started when he was in his 20's Presbycusis of both ears (Chronic) Mild left atrial enlargement (Chronic) Contusion of forehead (Acute) You will use the following diet at home:: Calorie/Carbohydrate Controlled (specify 1200, 1400, etc) - Watch the carbohydrates. You are pre-diabetic and if you eat a lot of carbs then you may become diabetic and need medication in the future. Keep your weight stable where it is and try not to gain any weight., Cardiac - Low fat and low salt., Other - avoid drinking more than 1 alcoholic drink a day. Your food should be the consistency of: Regular Your liquids should be the consistency of: Regular/Thin Discharge Activity: May Not Drive - Until you are released by physical and occupational therapy AND your neurologist to drive., May Shower, Use Walker May resume sexual activity in: No Restrictions Lifting Restrictions: not more than 5-10 lbs Additional Activity Instructions:: Do the exercises given to you by the therapists twice a day every day.....make this part of your daily routine. Call your doctor if you observe: Fever of 101 or Higher, Numbness or Tingling, Inability to urinate, Inability to have a bowel movement, Shortness of breath, Dizziness, Fainting spells, Swelling in the ankles, Chest pain, Increased palpitations (irregular heartbeat), Calf discomfort Instructions: Tips for Quitting Smoking (Cardiovascular), Getting Support for Quitting Smoking, Effects of a Stroke on the Brain and Body, Symptoms of Stroke, Stroke: Taking Medications, Atrial Fibrillation Additional Instructions: Go the ED or call 911 immediately if sudden onset: 1. facial droop 2. slurred speech or inability to get words out 3. weakness or numbness on 1 side of the face, arm or leg. 4. vertigo or room spinning 5. loss of vision or trouble seeing in one eye 6. Confusion 7. Trouble walking or maintaining balance and trouble with coordination 8. Sudden severe headache with no known cause A. You worked hard in therapy Fantasma and you have done very well. You have also done well on the anti-depressant. You are making better eye contact, talking and interacting more with people on the unit, smiling and more upbeat. Part of that I think is the drug BUT, part is do to increased socialization and having people to talk with. Try and get out more and talk with friends.......as long as you wear your mask and they wear theirs and you sit 6 feet apart you should be safe. Find some new activities or hobbies you may enjoy.....watching TV is not a hobby [facility]. Visiting with your siblings occasionally would be a good idea. B. You have seborrheic dermatitis. This is a skin condition where the skin on the face gets a red rash with flakey yellow/while scales. You can also get this on the head. I have given you a prescription for Nizoral cream to apply twice a day to the involved areas on the face to control this. If you have a flakey scalp use Head and Shoulders shampoo twice a week to control this. C. You have not smoked for 100 days now. This is a GREAT start toward not smoking. Get rid of all the cigarettes in the trailer so you are not tempted. When you are bored or sad that is when people give in the the cravings. Quitting smoking is VERY important for you. Cigarettes cause the build up of sludge from the tars and nicotine in the cigarettes and this narrows the arteries and this leads to decreased blood flow and strokes or heart attacks. If you have cravings OR you start smoking again the hospital has a smoking cessation program to help you. All you need to do is call the hospital at [phone] and ask the track moving machine operator to connect you with the smoking cessation network programmer. D. You have enlargement of 1 of the upper chambers (called atria) of your heart. This enlargement coupled with high blood pressure and a lot of alcohol consumption can lead to a problem with the rhythm of your heart called Atrial fibrillation or AFIB. This causes increased risk for stroke. I am sending you home with a prescription for a heart monitor that you will wear for 30 days and then you will follow up with the heart doctor to see if you had any AFIB during the 30 days. IF you did then you may need to be put on additional medication to prevent strokes. you will receive the heart monitor in the mail with instructions on what to do. E. It was a pleasure meeting you Fantasma and helping you to get better. If you have any questions after you leave please contact me at [phone] (office) or [phone] (cell). You could also call the rehab unit at [phone]. Take care of yourself Fantasma. Call if you need help with something Fantasma and we will do our best to help you. Allergies/Adverse Reactions: Allergies No Known Allergies Allergy (Verified 08/01/20 14:32) Medications to take at Discharge Amlodipine [Norvasc] 10 mg PO DAILY #30 tab 08/19/20 Aspirin [Aspirin, Baby] 81 mg PO DAILY@0800 tab.chew 08/19/20 Atorvastatin Calcium [Lipitor] 40 mg PO QHS #30 tab 08/19/20 Ketoconazole [Nizoral Cream] 1 applic TOPICAL BID #2 tube 08/19/20 Lisinopril [Zestril] 20 mg PO DAILY #30 tab 08/19/20 Vits [Prenatabs FA ] 1 tab PO DAILY@1200 #30 tab 08/19/20 Sertraline HCl [Zoloft] 100 mg PO DAILY #30 tab 08/19/20 The following prescriptions were given: Atorvastatin Calcium [Lipitor] 40 mg PO QHS #30 tab Transmission Status: Pending to [id number] Ketoconazole [Nizoral Cream] 1 applic TOPICAL BID #2 tube Transmission Status: Pending to [facility][id number] Amlodipine [Norvasc] 10 mg PO DAILY #30 tab Transmission Status: Pending to [id number] Vits [Prenatabs FA ] 1 tab PO DAILY@1200 #30 tab Transmission Status: Pending to [facility][id number] Lisinopril [Zestril] 20 mg PO DAILY #30 tab Transmission Status: Pending to [facility][id number] Sertraline HCl [Zoloft] 100 mg PO DAILY #30 tab Transmission Status: Pending to [id number] Orders to be completed after discharge: 30 Day Event [employer] [[facility]] Location: None Selected Primary Care Physician: Care Physician,No Primary [Primary Care Provider] - Test Results: Test results from this visit will be discussed in further detail at your follow-up appointment, if applicable. Please Follow Up With: Dr. Dario Toscano-PCP When: Wednesday Please Follow Up With: neurology Please Follow Up With: [facility] Proposed Discharge Date: 08/19/20
[2020-08-19] MEDS: Prenatal Vits Tablet 1 TABLET PO (12:19)
[2020-08-19 12:22] VITALS: BP 123/66; PULSE 63; RESP 16; TEMP 36.3; O2SAT 95
--- NOTE | 2020-08-19 12:23 | DS.PCM_ITS ---
Discharge Date and Diagnosis - Problem List Patient Problems: Active and Suspected Problems (Last Reviewed 08/01/20 @ 17:[address] 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 Started when he was in his 20's Depression (Chronic) - much better with the initiation of Sertraline while on rehab unit Presbycusis of both ears (Chronic) Mild left atrial enlargement (Chronic) Hospital Course and Treatment Imaging Results: Laboratory Last Values WBC 10.0 K/mm3 (4.4-11.0) 08/02/20 06:36 RBC 4.64 M/mm3 (4.6-6.2) 08/02/20 06:36 Hgb 15.1 g/dL (13.0-16.5) 08/02/20 06:36 Hct 44.5 % (40-54) 08/02/20 06:36 MCV 95.9 fL (80-94) H 08/02/20 06:36 MCH 32.5 pg (27.0-32.0) H 08/02/20 06:36 MCHC 33.9 g/dL (32-36) 08/02/20 06:36 RDW Std Deviation 42.8 fl (35.1-43.9) 08/02/20 06:36 RDW Coeff of Luis 12.2 % (11.6-14.6) 08/02/20 06:36 Plt Count 254 K/mm3 (150-450) 08/02/20 06:36 MPV 10.7 fl (6.2-12.0) 08/02/20 06:36 Sodium 133 mmol/L (136-145) L 08/18/20 06:50 Potassium 3.8 mmol/L (3.5-5.1) 08/18/20 06:50 Chloride 102 mmol/L (98-107) 08/18/20 06:50 Carbon Dioxide 25.0 mmol/L (21.0-32.0) 08/18/20 06:50 Anion Gap 6 (5-15) 08/18/20 06:50 BUN 17 mg/dL (7-18) 08/18/20 06:50 Creatinine 0.51 mg/dL (0.70-1.30) L 08/18/20 06:50 Estim Creat Clear Calc 71.12 ml/min 08/18/20 06:50 Est GFR (MDRD) Af Amer 204 mL/min (>60) 08/18/20 06:50 Est GFR (MDRD) Non-Af 168 mL/min (>60) 08/18/20 06:50 BUN/Creatinine Ratio 33.1 RATIO (10-20) H 08/18/20 06:50 Glucose 121 mg/dL (74-106) H 08/18/20 06:50 Serum Osmolality 280 mOsm/KG (280-301) 08/05/20 14:56 Calcium 8.7 mg/dL (8.5-10.1) 08/18/20 06:50 Phosphorus 3.4 mg/dL (2.5-4.9) 08/02/20 06:36 Magnesium 2.1 mg/dL (1.6-2.6) 08/02/20 06:36 Total Bilirubin 0.80 mg/dL (0.20-1.00) 08/02/20 06:36 AST 43 U/L (15-37) H 08/02/20 06:36 ALT 40 U/L (16-61) 08/02/20 06:36 Alkaline Phosphatase 74 U/L (45-117) 08/02/20 06:36 Total Protein 7.0 g/dL (6.4-8.2) 08/02/20 06:36 Albumin 3.3 g/dL (3.2-5.0) 08/02/20 06:36 Globulin 3.7 g/dL (2.2-4.2) 08/02/20 06:36 Albumin/Globulin Ratio 0.9 RATIO (0.9-2.4) 08/02/20 06:36 Triglycerides 95 mg/dL (-199) 08/02/20 06:36 Cholesterol 129 mg/dL (200) 08/02/20 06:36 LDL Cholesterol 78 mg/dL (0-130) 08/02/20 06:36 VLDL Cholesterol 19 mg/dL (5-40) 08/02/20 06:36 HDL Cholesterol 32 mg/dL (40-) L 08/02/20 06:36 TSH 1.22 uIU/mL (0.358-3.74) 08/05/20 14:56 Cortisol 23.40 ug/dL (3.44-22.45) H 08/14/20 05:45 Urine Osmolality 892 mOsm/KG (50-) 08/06/20 03:15 Ur Random Sodium 73 mmol/L (Not Establ.) 08/06/20 03:15 none Operations: None Procedures: None Summary of Care Provided: Fantasma Villaseñor is a 69 YO male with a past medical history of hypertension, HLD, tobacco dependence, presbycusis and heavy alcohol consumption who became lightheaded and fell. He thinks he just got weak and then could not get off the floor. He struck his head and sustained a large contusion on the R forehead. He broke the right and left nasal bones and the nasal septum. He had a laceration that required suturing. After he laid there for a few hours he was able to get to a chair. The next day his sister went to see him and he was intoxicated (per the records form [facility] yet his alcohol level was less than 3) and since he had hit his head his sister insisted he go to the ED. CT of the head showed a a subacute ischemic infarct of the R cerebellum. MRA of the cerebral circulation showed stenosis of the right vertebral artery and thrombosis of the posterior inferior cerebellar artery. The right carotid was 20% stenosed and the left carotid was 40% stenosed. An echocardiogram showed a normal ejection fraction of 60% with a mildly enlarged left atrium. There were no wall motion abnormalities. He was transferred from [facility] to [facility] acute inpt rehab on 08/01/20 for > 3 hours of therapy daily to restore function at or near his previous baseline. Lab at admission to rehab showed an unremarkable CBC with a hemoglobin of 15.1. MCV was mildly increased at 95.9. Sodium was low at 132 and the potassium was 3.9. Serum bicarb was mildly decreased at 23 and the BUN was 18 with a creatinine of 0.62. Serum osmolality was within normal limits and the urine osmolality was 892 which is far from maximally dilute. Urine sodium was 73. A.m. cortisol and TSH were within normal limits. Prior to discharge a sodi um was stable at 133-134. 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 He was discharged on an SSRI which can cause hyponatremia however he was hyponatremic prior to starting the sertraline and the sodium is stable. Fluids were not restricted because he very seldom drinks more than 1500 cc's per day and he is asymptomatic. HGBA1C is 6% and he was instructed in a consistent carbohydrate intake during his admission to rehab. Fantasma lives in a trailer and his best friend moved 2 hours away. For the past year he has been isolating in his trailer eating, drinking alcohol daily and watching TV. He goes out only once a week to get groceries. He was place on Sertraline at admission to the unit and he has done quite well. He makes eye contact now, his voice id modulated, he interacts with staff and his mood is more upbeat. He acknowledges that he is feeling better. Fantasma has done quite well with therapy. Prior to discharge he was supervision with all ADL's. He was able to do 11 sit to stands in 30 seconds at discharge. He has ascended and descended 13 steps using 2 rails at standby assist. He has ambulated up to 915 feet on various surfaces with a wheeled walker at standby assist/contact-guard assist. He was discharged on 08/19/20 and will have HHC with [facility] for PT/OT/ST. Smoking cessation counselling was given during his admission and at the time of DC he had not smoked for 100 days. He intends to quit and was given printed literature prior to DC on where to get help if he has cravings or starts smoking again. He was given a prescription for a 30 day event monitor prior to DC because I suspect he may be having PAF. He has LAE and he drinks ETOH everyday. He also has HTN and these 3 things all increase his risk for PAF. He will follow up with [facility] at the conclusion of the 30 days. He has an chad to follow up with Dr. Dario Toscano post DC and he should also follow up with neurology. He has a WW at home and a shower chair and he did not need any DME at DC. He will need to have a liver panel and a cholesterol panel in another 2-4 weeks. General: Alert, Oriented x3, Cooperative, making good eye contact, not distracted by the TV, good modulation in his voice and very pleasant HEENT: PERRLA, EOMI, Normocephalic, there is still a small scar over the R forehead above the eye. the laceration is intact with no dehiscence, no erythema and no DC Oral: missing teeth, MM are chronically a little dry Neck: Supple, No JVD, Negative Carotid Bruits, No Nuchal Rigidity, Trachea Midline Lungs: Clear to auscultation, Diminished, - - Not tachypneic, no conversational dyspnea, no accessory muscle use. Cardiovascular: Regular rate, Regular Rhythm, Normal S1, Normal S2, No murmurs, No Gallop, - - heart sounds are distatnt Abdomen: Bowel Sounds Present, Soft, Non Tender, Non-Distended Extremities: No cyanosis, No edema, Capillary Refill Less than 3 Seconds, No Calf Tenderness Skin: No rashes, No breakdown, Skin Tear - R forearm has healed Musculoskeletal: No Tenderness to Palpation of Joints or Extremities, No Muscle Wasting, Arthritic Changes Neurological: Cranial nerves II-XII grossly intact, Neuro grossly intact. static balance is much improved and with the WW he is able to maintain his bal ance with ambulation. He is SBA with ambulation. Psych/Mental Status: Appropriate, pleasant, good mood and more upbeat. This note was generated with Fug[employer] software. It may contain incorrect words, spelling, and punctuation that were not noted in checking the note before signing. Patient Problems: Active and Suspected Problems (Last Reviewed 08/01/20 @ 17:[address] 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 (Acute) Cognitive dysfunction (Acute) Contusion of forehead (Acute) - Physical Exam Vitals/I&O's: Vital Signs Temp Pulse Resp BP Pulse Ox 97.4 F L 73 16 123/66 H 95 08/19/20 06:59 08/19/20 06:59 08/19/20 06:59 08/19/20 06:59 08/19/20 06:59 Oxygen Delivery Method Room Air Weight: 190 lb 11.198 oz Body Mass Index (BMI) 27.0 Orthostatic Vital Signs Start: 08/01/20 23:40 Freq: Status: Active Protocol: Activity Type Activity Date Activity User E-Sign Co-Sign Detail Recorded Client Recorded Date Recorded By Document 08/03/20 07:30 RMB [id number] 08/04/20 12:49 RMB 08/03/20 07:30 Orthostatic Vitals Standing -Blood Pressure (90/60-120/80 mm Hg) 121/60 H -Extremity Use Right Arm -Pulse Rate (60-100 beats/min) 80 Sitting -Blood Pressure (90/60-120/80 mm Hg) 110/62 -Extremity Use Right Arm -Pulse Rate (60-100 beats/min) 81 Lying -Blood Pressure (90/60-120/80 mm Hg) 124/91 H -Extremity Use Right Arm -Pulse Rate (60-100 beats/min) 80 Intake and Output for Last 24 Hours 08/17/20 08/18/20 08/19/20 23:59 23:59 23:59 Intake Total 1220 / 1220 1420 / 1420 720 / 720 Output Total 450 / 450 650 / 650 300 / 300 Balance 770 / 770 770 / 770 420 / 420 Current Medications Amlodipine Besylate (Amlodipine 5 Mg Tablet) 5 mg PO DAILY RUPAL Last Admin: 08/19/20 08:33 Dose: 5 mg Documented by: Aspirin (Aspirin 81 Mg Tab.Chew) 81 mg PO DAILY@0800 [facility] Last Admin: 08/19/20 08:33 Dose: 81 mg Documented by: Atorvastatin Calcium (Atorvastatin Calcium 40 Mg Tablet) 40 mg PO QHS [facility] Last Admin: 08/18/20 21:34 Dose: 40 mg Documented by: Bisacodyl (Bisacodyl 10 Mg Suppository) 10 mg RECTAL .PRN X 1 PRN PRN Reason: Constipation Calamine/Phenol (Menthol/Lanolin/Calamine/Znox 113 Gm Tube) 1 applic TOPICAL BID [facility]; Protocol Last Admin: 08/19/20 08:35 Dose: Not Given Documented by: Enoxaparin Sodium (Enoxaparin 40 Mg/0.4 Ml Syringe) 40 mg SC DAILY@0600 [facility] Last Admin: 08/19/20 06:35 Dose: 40 mg Documented by: Ketoconazole (Ketoconazole Cream) 1 applic TOPICAL BID [facility]; Protocol Last Admin: 08/19/20 08:35 Dose: Not Given Documented by: Lisinopril (Lisinopril 20 Mg Tablet) 20 mg PO DAILY [facility] Last Admin: 08/19/20 08:33 Dose: 20 mg Documented by: Loperamide HCl (Loperamide 2 Mg Capsule) 4 mg PO Q6H PRN PRN PRN Reason: DIARRHEA/LOOSE STOOLS Last Admin: 08/08/20 09:52 Dose: 4 mg Documented by: Magnesium Hydroxide (Magnesium Hydroxide 30 Ml Udc) 30 ml PO .PRN X 1 PRN PRN Reason: Constipation Nystatin (Nystatin Powder 15gm Bottle) 1 applic TOPICAL BID@0600,2200 [facility]; Protocol Last Admin: 08/19/20 06:35 Dose: Not Given Documented by: Multivit/Folic Acid/Iron ( Vits Tablet) 1 tablet PO DAILY@1200 [facility] Last Admin: 08/19/20 12:19 Dose: 1 tablet Documented by: Senna/Docusate Sodium (Senna/Docusate Sodium 1 Tablet) 2 tablet PO BID [facility] Last Admin: 08/19/20 08:34 Dose: Not Given Documented by: Sertraline HCl (Sertraline 100 Mg Tablet) 100 mg PO DAILY [facility] Last Admin: 08/19/20 08:33 Dose: 100 mg Documented by: Discharge Activity: May Not Drive - Until you are released by physical and occupational therapy AND your neurologist to drive., May Shower, Use Walker May resume sexual activity in: No Restrictions Additional Activity Instructions:: Do the exercises given to you by the therapists twice a day every day.....make this part of your daily routine. Call your doctor if you observe: Fever of 101 or Higher, Numbness or Tingling, Inability to urinate, Inability to have a bowel movement, Shortness of breath, Dizziness, Fainting spells, Swelling in the ankles, Chest pain, Increased palpitations (irregular heartbeat), Calf discomfort Home Medications: Medications to take at Discharge Amlodipine [Norvasc] 10 mg PO DAILY #30 tab 08/19/20 Aspirin [Aspirin, Baby] 81 mg PO DAILY@0800 tab.chew 08/19/20 Atorvastatin Calcium [Lipitor] 40 mg PO QHS #30 tab 08/19/20 Ketoconazole [Nizoral Cream] 1 applic TOPICAL BID #2 tube 08/19/20 Lisinopril [Zestril] 20 mg PO DAILY #30 tab 08/19/20 Vits [Prenatabs FA ] 1 tab PO DAILY@1200 #30 tab 08/19/20 Sertraline HCl [Zoloft] 100 mg PO DAILY #30 tab 08/19/20 Following Prescriptions Were Given to Patient: Atorvastatin Calcium [Lipitor] 40 mg PO QHS #30 tab Transmission Status: Pending to [id number] Ketoconazole [Nizoral Cream] 1 applic TOPICAL BID #2 tube Transmission Status: Pending to [facility][id number] Amlodipine [Norvasc] 10 mg PO DAILY #30 tab Transmission Status: Pending to [facility][id number] Vits [Prenatabs FA ] 1 tab PO DAILY@1200 #30 tab Transmission Status: Pending to [facility][id number] Lisinopril [Zestril] 20 mg PO DAILY #30 tab Transmission Status: Pending to [facility][id number] Sertraline HCl [Zoloft] 100 mg PO DAILY #30 tab Transmission Status: Pending to [facility][id number] Other Amb Orders: 30 Day Event Recorder [facility] [[facility]] Location: None Selected Primary Care Physician: Care Physician,No Primary [Primary Care Provider] - Please Follow Up With: Dr. Dario Toscano-PCP When: Wednesday Please Follow Up With: neurology Please Follow Up With: [facility] Patient Instructions: Effects of a Stroke on the Brain and Body, Tips for Quitting Smoking (Cardiovascular), Symptoms of Stroke, Stroke: Taking Medications, Getting Support for Quitting Smoking, Atrial Fibrillation Disposition: Home with Home Health Minutes spent on discharge:: 45 Patient Condition:: Good Medical Necessity - Tobacco Use Smoking Status: Former smoker - quit at admisison to the hospital for acute CVA July 2020 Tobacco Use: Cigarettes Meaningful Use Info Meaningful Use Diagnoses (Choose all that apply): Ischemic CVA - CVA Therapy Assessed for PT,OT and/or ST?: Yes - Ischemic Stroke Antithrombotic order at d/c?: Yes Dx of Atrial fib/flutter?: No Anticoagulant at discharge?: No Reason anticoagulant not ordered: Treatment not Indicated Statins at discharge?: Yes Primary Dx Acute Ischemic CVA?: Yes IV tPA ordered during stay?: No Reason IV t-PA not ordered: Treatment not Indicated - outside the window Inpatient E&M: [id number] Disch Hosp
--- NOTE | 2020-08-19 16:49 | NURSING ---
Addendum entered by Karina Alicia 08/19/20 18:56: Brother manolo aware of appt with Dr Lucero 4-[address] Saunders office called 2x's with no call back and brother given office number and he will call again tomorrow to that office to make his brother appt. Original Note: Family aware of all appts, heart monitor to be delivered, pt verbalized understanding.
== END 2020-08-19 13:30 | disposition home health service (06) | DRG 560 ==
PROVIDERS: Admitting Provider Internal Medicine; Referring Provider Internal Medicine; Visit Provider Internal Medicine
DX: S02.2XXD Fracture of nasal bones, subsequent encounter for fracture with routine healing (principal); E22.2 Syndrome of inappropriate secretion of antidiuretic hormone; W19.XXXD Unspecified fall, subsequent encounter; S00.83XD Contusion of other part of head, subsequent encounter; I10 Essential (primary) hypertension; E78.5 Hyperlipidemia, unspecified; R73.02 Impaired glucose tolerance (oral); M47.812 Spondylosis without myelopathy or radiculopathy, cervical region; F17.210 Nicotine dependence, cigarettes, uncomplicated; M48.02 Spinal stenosis, cervical region; I69.398 Other sequelae of cerebral infarction; R26.89 Other abnormalities of gait and mobility; F10.10 Alcohol abuse, uncomplicated; H91.13 Presbycusis, bilateral; F32.9 Major depressive disorder, single episode, unspecified; E74.39 Other disorders of intestinal carbohydrate absorption
CPT/HCPCS: 36415; 80048; 80053; 80061; 82533; 83735; 83930; 83935; 84100; 84300; 84443; 85027; 92507; 92523; 92526; 92610; 97110; 97112; 97116; 97162; 97166; 97530; 97535; 97802; 99251; 99406; G0463

== ENCOUNTER → 2020-10-28 07:07 | Outpatient (CLI) | payer MEDICARE, OTHER, SELFPAY ==
[2020-10-02 10:35] VITALS: BMI 25.1
[2020-10-10 10:05] VITALS: BMI 27.6
--- NOTE | 2020-10-28 17:48 | STRESSREP ---
Stress Test Report Pharmacologic myocardial perfusion stress test. 70-year-old man with a history of hypertension, hyperlipidemia, tobacco abuse and palpitations. Stress protocol: Resting EKG demonstrates normal sinus rhythm with a rate of 72 bpm normal intervals are noted. Resting blood pressure is 134/66 mmHg. The patient initially exercised on a Cesario protocol for a total duration of 1 minute and 32 seconds. The maximum heart rate attained was 106 bpm which was 71% of maximum predicted heart rate the patient was unable to walk on the treadmill and this was therefore changed to a Lexiscan. 0.4 mg of regadenoson was infused per usual protocol followed by rapid intravenous saline flush injection continuous EKG monitoring was performed. At rest there were no ST or T wave changes noted to suggest abnormal flow reserve at peak infusion nonspecific ST changes were noted with no evidence of ischemia. The final blood pressure was 122/68 mmHg. Myocardial perfusion protocol. 11.3 mCi of technetium 99m sestamibi was injected at rest. 0.4 mg of regadenoson was infused per usual protocol. At peak infusion 32.9 mCi of technetium 99m sestamibi was injected stress images were obtained stress and rest images were reconstructed and compared in the short axis vertical long and horizontal long axis. Gated images were also obtained. Perfusion SPECT analysis: Review of the stress images demonstrate normal perfusion in all areas of the myocardium. The resting images similarly demonstrated normal perfusion in all areas of the myocardium. No areas of reversibility are noted to suggest ischemia and no previous infarct is noted. Gated SPECT analysis: The gated ejection fraction is noted to be 65%. Conclusion: Normal pharmacologic myocardial perfusion stress test. Preserved ejection fraction.
== END ==
PROVIDERS: PCP Family Medicine; Referring Provider Internal Medicine Cardiovascular Disease; Visit Provider Internal Medicine Cardiovascular Disease
DX: I25.10 Atherosclerotic heart disease of native coronary artery without angina pectoris (principal); I63.542 Cerebral infarction due to unspecified occlusion or stenosis of left cerebellar artery; I48.91 Unspecified atrial fibrillation; I48.92 Unspecified atrial flutter
CPT/HCPCS: 78452; 93017; 93225; 93226; A9500; A4216; J2785

== ENCOUNTER → 2020-10-29 12:51 | Outpatient (CLI) | payer MEDICARE, OTHER, SELFPAY ==
[2020-10-10 10:05] VITALS: BMI 27.6
--- NOTE | 2020-10-29 12:53 | ART_ITS ---
Reason For Study: Absent distal pulses in lower extremities Procedure A bilateral lower extremity continuous wave Doppler with analog waveform analysis and ankle brachial indexes. Left Segmental Pressures Left brachial= 128mmHg. Left posterior tibial artery = 86mmHg. Left dorsalis pedis artery = 79mmHg. Left digit = 46 mmHg. The left dorsalis pedis waveforms are monophasic. The left posterior tibial artery waveforms are monophasic. Right Segmental Pressures Right brachial= 133mmHg. Right posterior tibial artery = 76mmHg. Right dorsalis pedis artery = 70mmHg. Right digit = 37 mmHg. The right dorsalis pedis waveforms are monophasic. The right posterior tibial artery waveforms are monophasic. Indices The right ankle brachial index by the posterior tibial artery is 0.57. The right ankle brachial index by the dorsalis pedis is 0.53. The right digital-brachial index is 0.28. The left ankle brachial index by the posterior tibial artery is 0.65. The left ankle brachial index by the dorsalis pedis is 0.59. The left digital-brachial index is 0.35. VL/Ankle Brachial Index Interpretation Summary Moderately severe bilateral extremity arterial occlusive disease based upon love ateral PT and DP ankle-brachial indices. A more severe level disease suggested by bilateral posterior tibial and dorsali s pedis Doppler waveforms being only monophasic. Abnormal bilateral digital brachial indices Ordering Physician: Khanh Saunders Referring Physician: Dario Toscano MD Performed By: Ruthann Vargas RVT and Student
== END ==
PROVIDERS: PCP Family Medicine; Visit Provider Psychiatry & Neurology Neurology
DX: I73.9 Peripheral vascular disease, unspecified (principal)
CPT/HCPCS: 93922

== ENCOUNTER 2022-09-07 00:40 | Inpatient (IN) | payer MEDICARE, OTHER, SELFPAY ==
[2022-09-07] VITALS (32 sets, daily range): BP systolic 97–143; BP diastolic 43–85; PULSE 77–114; RESP 12–28; TEMP 36.6–36.7; O2SAT 80–100; BMI 24.6; BMI 23.0; BMI 23.1
--- NOTE | 2022-09-07 01:00 | EKG12_ITS ---
Test Reason : SOB Blood Pressure : / mmHG Vent. Rate : 112 BPM Atrial Rate : 112 BPM P-R Int : 140 ms QRS Dur : 074 ms QT Int : 352 ms P-R-T Axes : 087 -70 042 degrees QTc Int : 480 ms Sinus tachycardia Left axis deviation Abnormal ECG Confirmed by SHAHNAZ SCHMID, GERTRUDE ([id number]), metropolitan editor TIFFANI WHITE ([id number]) on 09/09/2022 10:02:56 AM Referred By: Confirmed By:GERTRUDE CHRISTIE MD
--- NOTE | 2022-09-07 01:00 | RAD_ITS ---
EXAM: XR CHEST, 2 VIEWS CLINICAL INDICATION: cough TECHNIQUE: Frontal and lateral views of the chest. This report was created using [employer] report generation technology. COMPARISON: None. FINDINGS: LUNGS AND PLEURAL SPACES: Patchy and hazy opacity in the right middle lobe and mild hazy dependent opacity in the lung base on the lateral view and medial right lung base on the frontal view. Bilateral mild pleural effusions blunting the posterior costophrenic angles and lateral costophrenic angles. No pneumothorax. HEART: Unremarkable. Normal heart size. MEDIASTINUM: Central airways and mediastinal contour are unremarkable. BONES/JOINTS: Unremarkable. SOFT TISSUES: Multiple compression deformities of lower thoracic bodies appear chronic. VASCULATURE: Mildly peripherally calcified ectatic aorta no evidence of daylin aneurysm. RAD/Chest PA and Lateral IMPRESSION: Bibasilar pulmonary opacities and effusions. Suspicious for edema or multifocal pneumonia. Electronically Signed: Miranda Schwarz MD at 2:50 EDT ,
--- NOTE | 2022-09-07 01:01 | ED.VIS.DYS ---
HPI History of Present Illness Chief Complaint: Shortness of Breath Informant: patient and SNF Narrative Narrative: Sent in from [facility] increasing dyspnea cough. He has been there for day. Apparently reported admitted to [facility] after being found down in his home for 3 days. He states he was there for a week. He reports he does wear oxygen however he does not know how much. Nursing unclear also if he was on room air they will call. He has a Soto catheter he has dressings to his foot. He has been ambulating with a walker per patient. He denies COPD asthma or heart failure history. For medication review blood pressure cholesterol issues with reflux. He is also on Bactrim for foot wound. BPH medications. Patient reports nonvaccinated for COVID or flu denies COVID infections in the past. [facility] Medical History (Updated 09/07/22 @ 03:[address] Laura Daly MD) Anxiety and depression Bilateral carotid artery stenosis Cervical spondylosis Cervical stenosis of spinal canal Cognitive dysfunction Essential (primary) hypertension Glucose intolerance (impaired glucose tolerance) History of alcohol abuse History of stroke (08/01/20) Hyperlipidemia Hyponatremia Mass of parotid gland Peripheral vascular occlusive disease Presbycusis of both ears Stenosis of right vertebral artery Tobacco dependence due to cigarettes Home Medications amlodipine 10 mg tablet 10 mg PO DAILY #30 tabs 08/19/20 [Rx Last Taken Unknown] atorvastatin 40 mg tablet 40 mg PO QHS #30 tabs 08/19/20 [Rx Last Taken Unknown] ascorbic acid (vitamin C) 500 mg tablet (Vitamin C) 500 mg PO DAILY 09/07/22 [History Last Taken Unknown] cephalexin 500 mg capsule 500 mg PO TID 09/07/22 [History Last Taken Unknown] lisinopril 20 mg tablet 20 mg PO QHS 09/07/22 [History Last Taken Unknown] multivitamin,tx-minerals 1 tab PO DAILY 09/07/22 [History Last Taken Unknown] pantoprazole 40 mg tablet,delayed release 40 mg PO BID 09/07/22 [History Last Taken Unknown] sertraline 100 mg tablet 100 mg PO DAILY 09/07/22 [History Last Taken Unknown] sulfamethoxazole 800 mg-trimethoprim 160 mg tablet 2 tab PO DAILY foot wound 09/07/22 [History Last Taken Unknown] tamsulosin 0.4 mg capsule 0.4 mg PO DAILY 09/07/22 [History Last Taken Unknown] Allergy/AdvReac Type Severity Reaction Status Date / Time No Known Allergies Allergy Verified 07/13/22 13:01 Family History (Updated 09/07/22 @ 04:[address] Laura Daly MD) Father Dementia Mother Dementia Social History (Updated 09/07/22 @ 04:[address] Laura Daly MD) household members: none Smoking Status: Current every day smoker tobacco type: cigarettes Smoking packs per day: 1 Smoking cigarettes per day: 20.0 Tobacco: How many years used: 40 Electronic Cigarette Use: with nicotine second hand exposure: Yes alcohol intake: former year quit: 2020 substance use type: does not use caffeine: Yes (4 cups daily) Type: coffee seatbelt use: sometimes ROS ROS ED Constitutional Constitutional ED: Denies chills, fever(s) or sweats Eyes Eyes: Denies change in vision ENT ENT ED: Denies dysphagia or sore throat Cardiovascular Cardiovascular: Denies chest pain, leg edema, palpitations or racing heartbeat Respiratory/Chest Respiratory/Chest: Reports cough and dyspnea; Denies dyspnea on exertion Gastrointestinal Gastrointestinal: Denies abdominal pain, diarrhea, nausea or vomiting Genitourinary Genitourinary ED: Denies dysuria, hematuria or urinary frequency Musculoskeletal Musculoskeletal: Denies back pain, extremity pain or neck pain Integumentary Denies rash or wounds Neurologic Neurologic: Denies headache(s), paresthesias or weakness EXAM Physical Exam Const Vital Signs: 09/07/22 00:44 09/07/22 00:57 09/07/22 03:27 Temperature 98.1 F 98.1 F Temperature Source Oral Temporal Pulse Rate 112 H 114 H Respiratory Rate 21 H 21 H Respiratory Effort Short of Breath Respiratory Depth Normal Respiratory Pattern Tachypnea Blood Pressure 97/52 L 117/62 Blood Pressure Mean 67 80 Pulse Ox 93 98 Oxygen Delivery Method Nasal Cannula Nasal Cannula Room Air Oxygen Flow Rate (L/min) 4 4 2 Constitutional Narrative: Nontoxic alert and oriented x3, however cannot tell me his reason for hospitalization recently. Currently on 4 L nasal cannula HEENT Reports moist mucous membranes normocephalic and atraumatic Eyes PERRL, EOMs intact bilaterally and conjunctivae normal General Eye ED: Yes normal appearance of both eyes Neck no lymphadenopathy and supple General: Negative for tenderness Chest Wall Chest: Negative for tenderness Resp Resp Narrative: Coarse breath sounds Effort and Inspection: symmetric chest movement; Negative for respiratory distress Cardio regular rhythm and no murmurs Rate: tachycardic Peripheral Pulses: pulses 2+ throughout GI normal to inspection, nondistended, normoactive bowel sounds and non-tender Palpation: Negative for guarding or rebound tenderness present Narrative: Soto catheter with yellow urine Back/Spine no CVA tenderness and no thoracic nor lumbar tenderness Extremity normal to inspection General Extremety ED: Negative for edema or tenderness General Extremity: Negative for edema Neuro oriented x3 and no sensory deficits noted Sensorium / Orientation: awake and alert Skin Skin Narrative: Left leg: Dressing left forefoot clean, dry, intact. Right lower extremity dressing to foot and ankle clean, dry intact. MDM MDM MDM Narrative Medical decision making narrative: Interventions / MDM: Differential diagnosis: Pneumonia, bronchitis Diagnosis considered but do not suspect: N/A My EKG interpretation: Sinus rate of 112, no ST or T wave changes Imaging independently reviewed and interpreted by myself: 2 view chest x-ray: Bibasilar infiltrates, per radiology edema versus infiltrate. External documents reviewed: [email or web address] access from [facility]. Patient discharged on the , apparently was at outside hospital unresponsive hypotensive he was on a ventilator. He was on pressors. He had duodenal ulcer bleed with clipping's. He had 5 units of blood his hemoglobin discharge was 8.6. He had urine retention with Soto catheter. He is placed on Flomax from reports the Soto cath supposed to be removed unclear it was replaced back at the nursing facility. Test considered but not ordered:N/A ED course: Patient on 4 L nasal cannula coarse lung sounds with wheezing. Aerosol treatments given. Labs White count 17.5. Creatinine 0.59 today. Hemoglobin 9.7 higher than the 8.6 from when he was discharged from records. Chest x-ray with pneumonia findings. He meets SIRS criteria with pneumonia. Nursing reached out to longterm facility he was placed on oxygen prior to his arrival. Currently dependent on oxygen. 93% nasal cannula. I added sepsis to labs a lactic acid and blood cultures. Zosyn and vancomycin due to recent hospitalization. Re-evaluation: 304: Improving breathing on oxygen. Blood pressure systolic 101 heart rate low 100s. Patient updated. He still does not recall his hospitalization due to being on a ventilator. I will speak with hospitalist service for admission. Lactic acid 2.0. Disposition discussed with patient/family/significant other: Patient Case discussed with consulting clinician: Hospitalist, Dr. Daly Lab Data Attestation: I reviewed the patient's lab results. Labs: Laboratory Results - last 24 hr 09/07/22 09/07/22 09/07/22 01:05 01:05 01:05 WBC 17.5 H RBC 3.12 L Hgb 9.7 L Hct 30.9 L MCV 99.0 H MCH 31.1 MCHC 31.4 L RDW Std Deviation 57.1 H RDW Coeff of Luis 16.1 H Plt Count 595 H MPV 10.8 Immature Gran % (Auto) 0.700 Neut % (Auto) 92.9 H Lymph % (Auto) 3.3 L [place] % (Auto) 2.2 Eos % (Auto) 0.8 Baso % (Auto) 0.1 Absolute Neuts (auto) 16.3 H Absolute Lymphs (auto) 0.57 L Nucleated RBC % 0 Platelet Estimate MOD INC Anisocytosis 1+ Macrocytosis 1+ PT INR APTT Sodium 144 Potassium 3.6 Chloride 110 H Carbon Dioxide 26.0 Anion Gap 8 BUN 23 H Creatinine 0.59 L Estim Creat Clear Calc 69.03 Est GFR (MDRD) Af Amer 172 Est GFR (MDRD) Non-Af 142 BUN/Creatinine Ratio 38.9 H Glucose 111 H Lactic Acid Calcium 7.9 L Phosphorus 3.1 Magnesium 1.3 L Total Bilirubin 0.70 AST 62 H ALT 78 H Alkaline Phosphatase 176 H Total Protein 6.3 L Albumin 1.8 L Globulin 4.5 H Albumin/Globulin Ratio 0.4 L 09/07/22 09/07/22 03:15 03:15 WBC RBC Hgb Hct MCV MCH MCHC RDW Std Deviation RDW Coeff of Luis Plt Count MPV Immature Gran % (Auto) Neut % (Auto) Lymph % (Auto) Plumas % (Auto) Eos % (Auto) Baso % (Auto) Absolute Neuts (auto) Absolute Lymphs (auto) Nucleated RBC % Platelet Estimate Anisocytosis Macrocytosis PT 15.4 H INR 1.3 APTT 29.9 Sodium Potassium Chloride Carbon Dioxide Anion Gap BUN Creatinine Estim Creat Clear Calc Est GFR (MDRD) Af Amer Est GFR (MDRD) Non-Af BUN/Creatinine Ratio Glucose Lactic Acid 2.0 Calcium Phosphorus Magnesium Total Bilirubin AST ALT Alkaline Phosphatase Total Protein Albumin Globulin Albumin/Globulin Ratio Radiography Diagnostic Testing: Clinical Impression(s) from Imaging Studies Chest X-Ray 09/07/22 01:00 IMPRESSION: Bibasilar pulmonary opacities and effusions. Suspicious for edema or multifocal pneumonia. Electronically Signed: Miranda Schwarz MD at 2:50 EDT , Discharge Plan Dx/Rx/DC Orders Clinical Impression: HCAP (healthcare-associated pneumonia), Hypoxia, Anemia Disposition Disposition: Acute Care Hospital [facility]
[2022-09-07] MEDS: Ipratropium/Albuterol Sulfate 3 ML AMPUL.NEB INHALATION ×4 (01:10→19:30)
[2022-09-07 01:18] LABS: Absolute Lymphocyte Count 0.57 X10^3/uL (0.83-4.51); Absolute Neutrophil Count 16.3 X10^3/uL (2.0-7.7); Basophil# 0.02 X10^3/uL; Basophil% 0.1 % (0-1); Eosinophil# 0.14 X10^3/uL; Eosinophils% 0.8 % (0-5); Hematocrit 30.9 % (40-54); Hemoglobin 9.7 g/dL (13.0-16.5); Lymphocyte # 0.57 X10^3/ul (0.83-4.51); Lymphocyte % 3.3 % (19-41); Mean Corp Hgb Conc 31.4 g/dL (32-36); Mean Corpuscular Hgb 31.1 pg (27.0-32.0); Mean Platelet Vol. 10.8 fl (6.2-12.0); Monocyte# 0.39 X10^3/uL; Monocyte% 2.2 % (0-10); NRBC Flagged by Analyzer 0 % (0-5); Neutrophil # 16.28 X10^3/uL (2.7-7.7); Neutrophil % 92.9 % (47-70); POSITIVE DIFFERENTIAL YES; Platelet Count 595 K/mm3 (150-450); RBC Distribution Width CV 16.1 % (11.6-14.6); RBC Distribution Width SD 57.1 fl (35.1-43.9); Red Blood Count 3.12 M/mm3 (4.6-6.2); White Blood Count 17.5 K/mm3 (4.4-11.0)
[2022-09-07 01:37] LABS: ALB/GLOB Ratio 0.4 RATIO (0.9-2.4); AST(SGOT) 62 U/L (15-37); Alanine Aminotransfer ALT/SGPT 78 U/L (16-61); Albumin, Serum 1.8 g/dL (3.2-5.0); Alkaline Phosphatase 176 U/L (45-117); Anion Gap 8 (5-15); BUN 23 mg/dL (7-18); BUN/Creat Ratio 38.9 RATIO (10-20); Calcium,Total 7.9 mg/dL (8.5-10.1); Chloride 110 mmol/L (98-107); Creatinine, Serum 0.59 mg/dL (0.70-1.30); EST Glomerular Filtration Rate 142 mL/min (>60); Est Glom Filt Rate - Afr Amer 172 mL/min (>60); Estimated Creatinine Clearance 69.03 ml/min; Globulin 4.5 g/dL (2.2-4.2); Glucose 111 mg/dL (74-106); Potassium 3.6 mmol/L (3.5-5.1); Protein, Total 6.3 g/dL (6.4-8.2); Sodium Level 144 mmol/L (136-145)
[2022-09-07 01:38] LABS: Anisocytosis 1+; Differential Indicated SCAN CRITERIA MET; Macrocytosis 1+; Platelet Estimate MOD INC (ADEQ)
--- NOTE | 2022-09-07 03:21 | PCM.HP.STD ---
HPI - General General Date of Admission: 09/07/22 Date of Service: 09/07/22 Chief Complaint: Dyspnea, cough, hypoxia at facility. HPI Narrative The patient is a 72 y/o M w/ PMHx: Former EtOH abuse, Tobacco use, Carotid disease, HTN, HLD, Anxiety and Depression, Hx CVA, PVOD, COPD, GERD, BPH, Anxiety and Depression who presents to the [facility] ED on 09/07/22 with history of progressively worsening dyspnea as well cough with recent discharge from [facility] discharged on 09/05/22 admitted with noted per [facility] records found at his home unresponsive, encephalopathic and hypotensive secondary to hemorrhagic shock requiring transient intubation with GI bleed secondary to duodenal ulcer requiring 5 unit PRBC administration and several clipping complicated by urinary retention and bilateral foot wounds w/ transition to skilled facility on day prior with progressively worsening dyspnea since his discharge as well as cough and wheezing with no specific fevers or chills however worsening with hypoxia at skilled facility prompting ED evaluation. He does report that his cough has been moist/productive but he has difficulty bringing anything up secondary to debility, weakness. Work-up in the ED included T98.1, heart rate 112, BP 97/52, respiratory rate 21, 93% on 4 L nasal cannula, CBC with WBC 17.5, hemoglobin 9.7, MCV 99, platelet 595 with left shift and lymphopenia, CMP with chloride 110, BUN/creatinine 23/0.59, glucose of 111, calcium 7.9, AST/ALT 62/78, alk phos 176, chest x-ray with bibasilar pulmonary opacities and effusion suspicious for edema or multifocal pneumonia, rapid SARS COVID and influenza antigens negative. In the ED patient administered DuoNeb therapy as well as IV vancomycin and Zosyn. Coags as well as lactic acid pending upon request evaluation of patient. Urine culture and blood culture x2 pending upon requested evaluation of patient. [facility] Medical History (Updated 09/07/22 @ 03:[address] Laura Daly MD) Anxiety and depression Bilateral carotid artery stenosis Cervical spondylosis Cervical stenosis of spinal canal Cognitive dysfunction Essential (primary) hypertension Glucose intolerance (impaired glucose tolerance) History of alcohol abuse History of stroke (08/01/20) Hyperlipidemia Hyponatremia Mass of parotid gland Peripheral vascular occlusive disease Presbycusis of both ears Stenosis of right vertebral artery Tobacco dependence due to cigarettes Home Medications amlodipine 10 mg tablet 10 mg PO DAILY #30 tabs 08/19/20 [Rx Last Taken Unknown] atorvastatin 40 mg tablet 40 mg PO QHS #30 tabs 08/19/20 [Rx Last Taken Unknown] ascorbic acid (vitamin C) 500 mg tablet (Vitamin C) 500 mg PO DAILY 09/07/22 [History Last Taken Unknown] cephalexin 500 mg capsule 500 mg PO TID 09/07/22 [History Last Taken Unknown] lisinopril 20 mg tablet 20 mg PO QHS 09/07/22 [History Last Taken Unknown] multivitamin,tx-minerals 1 tab PO DAILY 09/07/22 [History Last Taken Unknown] pantoprazole 40 mg tablet,delayed release 40 mg PO BID 09/07/22 [History Last Taken Unknown] sertraline 100 mg tablet 100 mg PO DAILY 09/07/22 [History Last Taken Unknown] sulfamethoxazole 800 mg-trimethoprim 160 mg tablet 2 tab PO DAILY foot wound 09/07/22 [History Last Taken Unknown] tamsulosin 0.4 mg capsule 0.4 mg PO DAILY 09/07/22 [History Last Taken Unknown] Allergy/AdvReac Type Severity Reaction Status Date / Time No Known Allergies Allergy Verified 07/13/22 13:01 Family History (Updated 09/07/22 @ 04:[address] Laura Daly MD) Father Dementia Mother Dementia Surgical History no surgical history no surgical history Social History (Updated 09/07/22 @ 04:[address] Laura Daly MD) household members: none Smoking Status: Current every day smoker tobacco type: cigarettes Smoking packs per day: 1 Smoking cigarettes per day: 20.0 Tobacco: How many years used: 40 Electronic Cigarette Use: with nicotine second hand exposure: Yes alcohol intake: former year quit: 2020 substance use type: does not use caffeine: Yes (4 cups daily) Type: coffee seatbelt use: sometimes ROS ROS Narrative Admission Review of Systems: CONSTITUTIONAL: No weight loss, fever, chills, + weakness or fatigue. HEENT: Eyes: No visual loss, blurred vision, double vision or yellow sclerae. Ears, Nose, Throat: No hearing loss, sneezing, congestion, runny nose or sore throat. SKIN: +. Staged ecchymoses to extremities, bilateral foot wounds, right significantly worsened with dorsal open region, necrotic appearing, no marked foul odor or significant purulent discharge. CARDIOVASCULAR: No chest pain, chest pressure or chest discomfort, palpitations, edema, orthopnea, syncopal events. RESPIRATORY: + shortness of breath, cough with difficulty bringing up sputum, wheezing, No hemoptysis. GASTROINTESTINAL: + anorexia, nausea, recent GI bleed and did report melanotic stools previously however these have normalized he notes no vomiting or diarrhea, abdominal pain. GENITOURINARY: + Retention with Soto in place. No dysuria, frequency, urgency. NEUROLOGICAL: + History of prior CVA with some gait debility. No headache, dizziness, syncope, paralysis, numbness or tingling in the extremities, focal weakness, change in bowel or bladder control, seizure. MUSCULOSKELETAL: + muscle, back pain, joint pain or stiffness. HEMATOLOGIC: + anemia, bleeding or bruising. LYMPHATICS: No enlarged nodes. No history of splenectomy. PSYCHIATRIC: No history of depression or anxiety. ENDOCRINOLOGIC: No reports of sweating, cold or heat intolerance. No polyuria or polydipsia. ALLERGIES: No history of asthma, hives, eczema or rhinitis. Vital Signs Vital Signs Vital Signs: 09/07/22 00:44 09/07/22 00:57 Temperature 98.1 F Temperature Source Oral Pulse Rate 112 H Respiratory Rate 21 H Respiratory Effort Short of Breath Respiratory Depth Normal Respiratory Pattern Tachypnea Blood Pressure 97/52 L Blood Pressure Mean 67 Pulse Ox 93 Oxygen Delivery Method Nasal Cannula Nasal Cannula Oxygen Flow Rate (L/min) 4 4 Weight Weight: 176 lb 12.972 oz Body Mass Index (BMI) 24.6 Physical Exam Narrative Physical Examination: General: Awake, alert, oriented x 3, hard of hearing, remains cooperative, seated upright in the ED bed, fatigued and ill-appearing. Skin: Normal color, normal turgor, no icterus, no cyanosis except notable staged ecchymoses to extremities as well as bilateral foot wounds, right significantly more so with the entire right dorsum of the foot with denuded skin with necrotic appearing region, no marked purulent discharge or foul odor was wrapped in iodoform thus the smell is very strong. HEENT: AT/NC, EOMI, PERRLA, dry MM, difficulty managing his oral secretions with some referred upper airway sounds, no carotid bruits or JVD noted. Lungs: Significantly diffusely diminished, greater bases, moist upper airway sounds referred, and expiratory wheezing especially posterior base lopez, mild rhonchi, despite moist upper airway sounds no significant marked rales noted. Heart: Tachycardic with regular rhythm; no gallop, rub audible. Abdomen: Soft, NTTP, ND, mildly hyperactive BS, no HSM. Extremities: No cyanosis, no clubbing, no marked pitting edema, see skin. Neurological: Patient awake, alert, oriented as noted, cognitive function despite current illness seems to be appropriately intact; pupils equally reactive to light and accommodation, cranial nerves II-XII grossly normal, moving all 4 extremities, no focal deficits, strength severely global decrease secondary to recent prolonged admission and acute presentation. Psychiatric: Affect appears fatigued, ill-appearing, no acute evidence of depressive or anxiety feelings. Results Lab / Micro Data Result Diagrams: 09/07/22 01:05 09/07/22 01:05 Labs: Laboratory Results - last 24 hr 09/07/22 01:05: WBC 17.5 H, RBC 3.12 L, Hgb 9.7 L, Hct 30.9 L, MCV 99.0 H, MCH 31.1, MCHC 31.4 L, RDW Std Deviation 57.1 H, RDW Coeff of Luis 16.1 H, Plt Count 595 H, MPV 10.8, Immature Gran % (Auto) 0.700, Neut % (Auto) 92.9 H, Lymph % (Auto) 3.3 L, [place] % (Auto) 2.2, Eos % (Auto) 0.8, Baso % (Auto) 0.1, Absolute Neuts (auto) 16.3 H, Absolute Lymphs (auto) 0.57 L, Nucleated RBC % 0, Platelet Estimate MOD INC, Anisocytosis 1+, Macrocytosis 1+ 09/07/22 01:05: Sodium 144, Potassium 3.6, Chloride 110 H, Carbon Dioxide 26.0, Anion Gap 8, BUN 23 H, Creatinine 0.59 L, Estim Creat Clear Calc 69.03, Est GFR (MDRD) Af Amer 172, Est GFR (MDRD) Non-Af 142, BUN/Creatinine Ratio 38.9 H, Glucose 111 H, Calcium 7.9 L, Total Bilirubin 0.70, AST 62 H, ALT 78 H, Alkaline Phosphatase 176 H, Total Protein 6.3 L, Albumin 1.8 L, Globulin 4.5 H, Albumin/Globulin Ratio 0.4 L Micro: Microbiology 09/07/22 01:05 Nasal Secretion SARS-CoV-2 & FLU Antigen (Rapid) - Final Radiology Impression Chest X-Ray 09/07/22 01:00 IMPRESSION: Bibasilar pulmonary opacities and effusions. Suspicious for edema or multifocal pneumonia. Electronically Signed: Miranda Schwarz MD at 2:50 EDT , Assessment & Plan Assessment/Plan (1) HCAP (healthcare-associated pneumonia): PLAN: Plan The patient is a 72 y/o M w/ PMHx: Former EtOH abuse, Tobacco use, Carotid disease, HTN, HLD, Anxiety and Depression, Hx CVA, PVOD, COPD, GERD, BPH, Anxiety and Depression who presents to the [facility] ED on 09/07/22 with history of progressively worsening dyspnea as well cough with recent discharge from [facility] discharged on 09/05/22 admitted with noted per clin[facility] records found at his home unresponsive, encephalopathic and hypotensive secondary to hemorrhagic shock requiring transient intubation with GI bleed secondary to duodenal ulcer requiring 5 unit PRBC administration and several clipping complicated by urinary retention and bilateral foot wounds w/ transition to skilled facility on day prior with progressively worsening dyspnea since his discharge as well as cough and wheezing with no specific fevers or chills however worsening with hypoxia at skilled facility prompting ED evaluation. #1. Acute Sepsis (PNA, tachycardia, hypoxia, hypotension in the ED transiently < 65, responded to IVFs) secondary to Acute Hypoxia secondary to suspected BL Multifocal pneumonia, possible gram-negative/gram-positive organism and concurrent Acute on Chronic suspected COPD exacerbation with associated transient Hypotension (improved in the ED with IVFs) and #2: Will admit to PCU given improvement of BP with IVFs in the ED although still concern he could decompensate, pending lactic acid as well as blood cultures now being drawn per ED upon evaluation, will maintain on oxygen with wean as tolerated to room air, continue ATC duonebs, PRN albuterol, initiate on IV solumedrol, maintain on IV Zosyn and Vancomycin with pending MRSA screen, HOB, IS parameters w/ pending sputum cultures, full respiratory panel and COVID PCR to be cautious and urine antigens. Procalcitonin requested. Bld cx x 2 obtained in the ED. #2. Recent Acute Bilateral foot wounds, R notable necrotic appearing, unclear if worsening from prior but concerning appearance: Will obtain plain film of the R foot, will request Podiatry consultation as well as wound RN consultation and continue dressing changes as well as elevation of extremities. Recently had been placed on Bactrim and Keflex for foot wounds, will hold given broad-spectrum antibiotic therapy as noted #1. #3. Recent Acute Urinary Retention requiring Soto catheter placement: Presents with Soto catheter, from clinic think records it had been removed prior to discharge but was replaced at skilled facility, will continue for now but would consider removal soon with potentially to assess for further need, continue Flomax. #4. Recent Acute GI bleed secondary to Duodenal ulcer with associated Acute blood loss anemia with currently: Admission hemoglobin 9.7, MCV 99, clinic sink records with noted recent acute GI bleed with acute blood loss anemia secondary to duodenal ulcer which required endoscopy with clipping and 5 unit PRBC administration, will continue high-dose PPI, encourage continued follow-up once appropriate with GI outpatient. Hemoglobin at their discharge was noted to be 8.6. #6. PVOD: We will continue patient statin, holding hypertensive regimen is noted. Recent GI bleed thus aspirin and been held, resume per GI prior recommendation. #7. Carotid disease: We will continue patient statin, holding hypertensive regimen as noted. Recent GI bleed this aspirin had been held, resume per GI prior recommendation. #8. History CVA: We will continue patient home statin, holding hypertensive regimen as noted, maintain on fall precautions, therapies consulted as well as case management for discharge planning. Recent GI bleed this aspirin has been held, resume per GI prior recommendation. #9. Hypertension: BP upon presentation low normal range therefore we will hold all hypertensive medication, closely monitor as given concern for infectious presentation certainly could drop further, add back once appropriate. #10. Hyperlipidemia: We will continue patient on statin therapy. #11. Former EtOH Abuse with chronic LFT elevation: Upon presentation LFTs mildly elevated, will repeat CMP in AM. Patient previously drank approximately 3-4 beers daily however he quit following his stroke, encourage continued sobriety. #12. Tobacco Abuse: Encouraged cessation, inpatient consultation per RT, NR if desired. #13. Anxiety and depression: We will continue patient home sertraline regimen. #14. BPH: We will continue patient Flomax regimen. #15. DVT prophylaxis: SCDs, defer chemoprophylaxis given recent acute GI bleed. #16. CODE status: Patient SHAHEEN is his sister Eva and living will is currently in place. Discussed CODE status at length including difference between FULL code, DNR-CCA and DNR-CC status. Following discussions about the differences in these status, requested DNR-CC, no intubation. He would be amenable to pressor usage if absolutely necessary. Advanced Care Planning Face to Face Time: 17 minutes. Admission Evaluation Time spent evaluating chart, patient history, patient evaluation, care planning and discussion with specialists: 75 minutes. Charges/Coding Visit Charges Inpatient E&M: 75742 Init Hosp L3 Procedures Hospitalists Procedures: 54584 Advncd Care Plan 30 Min
[2022-09-07 03:32] LABS: International Normalized Ratio 1.3; Partial Thromboplast Time 29.9 Seconds (24.1-36.2); Prothrombin Time (Protime)PT. 15.4 SECONDS (11.7-14.9)
[2022-09-07 04:07] LABS: Magnesium 1.3 mg/dL (1.6-2.6); Phosphorus 3.1 mg/dL (2.5-4.9)
--- NOTE | 2022-09-07 04:08 | RAD_ITS ---
EXAM: XR RIGHT FOOT COMPLETE, 3 OR MORE VIEWS CLINICAL INDICATION: R foot wound TECHNIQUE: Frontal, lateral and oblique views of the right foot. This report was created using [employer] report generation technology. COMPARISON: None. FINDINGS: BONES/JOINTS: Marked degenerative and hypertrophic changes at the first MTP joint and surrounding bone. No daylin bone destruction. Mild lucency at the medial aspect of the multiple distal metatarsals. No acute fracture. No subluxation. Normal alignment. SOFT TISSUES: Minimal dorsal soft tissue swelling. No soft tissue gas. No radiopaque foreign body. RAD/Foot min 3 Views IMPRESSION: Mild soft tissue swelling. No daylin bone destructive changes. Marked first MTP joint degenerative changes. Electronically Signed: Miranda Schwarz MD at 5:08 EDT ,
--- NOTE | 2022-09-07 06:03 | PCM.RX.CS ---
Consult Pharmacy has been consulted to manage selected antiobiotic: Vancomycin Type of Consult: New start Suspected Infection: Pneumonia Labs: Sodium 144 mmol/L (136-145) 09/07/22 01:05 Potassium 3.6 mmol/L (3.5-5.1) 09/07/22 01:05 Chloride 110 mmol/L (98-107) H 09/07/22 01:05 Carbon Dioxide 26.0 mmol/L (21.0-32.0) 09/07/22 01:05 Anion Gap 8 (5-15) 09/07/22 01:05 BUN 23 mg/dL (7-18) H 09/07/22 01:05 Creatinine 0.59 mg/dL (0.70-1.30) L 09/07/22 01:05 Est GFR (MDRD) Af Amer 172 mL/min (>60) 09/07/22 01:05 Est GFR (MDRD) Non-Af 142 mL/min (>60) 09/07/22 01:05 BUN/Creatinine Ratio 38.9 RATIO (10-20) H 09/07/22 01:05 Glucose 111 mg/dL (74-106) H 09/07/22 01:05 Microbiology: Microbiology 09/07/22 01:05 Nasal Secretion SARS-CoV-2 & FLU Antigen (Rapid) - Final Goal Trough: 15-20 mcg/mL Pharmacy Plan for Drug Dosing: Pharmacy Service will continue to monitor and adjust dosing as required. Medications Vancomycin HCl 1,250 mg/ (Sodium Chloride) 275 mls @ 167 mls/hr IV Q12H RUPAL Discontinued Medications Vancomycin HCl 2,000 mg/ (Sodium Chloride) 540 mls @ 250 mls/hr IV X1 ONE Stop: 09/07/22 05:09 Last Admin: 09/07/22 04:38 Dose: 250 mls/hr Follow-Up Labs: Trough Vancomycin Labs to be done on [date and time ordered]: 09/08 @ 1739
[2022-09-07] MEDS: Magnesium Sulfate 4gm/100mL 4 GM/100 ML IV.SOLN. IV (06:11)
[2022-09-07 07:19] LABS: Reflex Lactate? Y
[2022-09-07 07:21] LABS: Absolute Lymphocyte Count 0.22 X10^3/uL (0.83-4.51); Absolute Neutrophil Count 15.8 X10^3/uL (2.0-7.7); Basophil# 0.06 X10^3/uL; Basophil% 0.4 % (0-1); Eosinophils% 0.6 % (0-5); Hematocrit 30.9 % (40-54); Hemoglobin 9.2 g/dL (13.0-16.5); Lymphocyte # 0.22 X10^3/ul (0.83-4.51); Lymphocyte % 1.3 % (19-41); Mean Corp Hgb Conc 29.8 g/dL (32-36); Mean Corpuscular Hgb 30.2 pg (27.0-32.0); Mean Corpuscular Volume 101.3 fL (80-94); Mean Platelet Vol. 10.7 fl (6.2-12.0); Monocyte# 0.27 X10^3/uL; Monocyte% 1.6 % (0-10); NRBC Flagged by Analyzer 0 % (0-5); Neutrophil # 15.84 X10^3/uL (2.7-7.7); POSITIVE DIFFERENTIAL YES; Platelet Count 600 K/mm3 (150-450); RBC Distribution Width CV 16.3 % (11.6-14.6); RBC Distribution Width SD 59.4 fl (35.1-43.9); Red Blood Count 3.05 M/mm3 (4.6-6.2); White Blood Count 16.7 K/mm3 (4.4-11.0)
[2022-09-07 07:23] LABS: Differential Indicated SCAN CRITERIA MET
[2022-09-07 07:42] LABS: ALB/GLOB Ratio 0.4 RATIO (0.9-2.4); AST(SGOT) 53 U/L (15-37); Alanine Aminotransfer ALT/SGPT 70 U/L (16-61); Albumin, Serum 1.7 g/dL (3.2-5.0); Alkaline Phosphatase 162 U/L (45-117); Anion Gap 8 (5-15); BUN 22 mg/dL (7-18); BUN/Creat Ratio 39.7 RATIO (10-20); Calcium,Total 7.7 mg/dL (8.5-10.1); Chloride 112 mmol/L (98-107); Creatinine, Serum 0.55 mg/dL (0.70-1.30); EST Glomerular Filtration Rate 153 mL/min (>60); Est Glom Filt Rate - Afr Amer 186 mL/min (>60); Estimated Creatinine Clearance 68.66 ml/min; Globulin 4.2 g/dL (2.2-4.2); Glucose 115 mg/dL (74-106); Potassium 3.3 mmol/L (3.5-5.1); Protein, Total 5.9 g/dL (6.4-8.2); Sodium Level 143 mmol/L (136-145)
[2022-09-07 07:48] LABS: Lactic Acid 1.8 mmol/L (0.4-1.9)
[2022-09-07 07:51] LABS: Platelet Estimate MOD INC (ADEQ)
--- NOTE | 2022-09-07 08:14 | ART_ITS ---
Reason For Study: PVD Procedure A bilateral lower extremity continuous wave Doppler with analog waveform analysis,segmental pressures,and ankle brachial indexes without exercise. Left Segmental Pressures Left brachial= 160mmHg. Left thigh = 54mmHg. Left calf = 60mmHg. Left posterior tibial artery = 48mmHg. Left dorsalis pedis artery = 52mmHg. The left dorsalis pedis waveforms are monophasic. The left posterior tibial artery waveforms are monophasic. Right Segmental Pressures Right thigh = 98mmHg. Right calf = 71mmHg. Right posterior tibial artery = 68mmHg. Right dorsalis pedis artery = 61mmHg. The right dorsalis pedis waveforms are monophasic. The right posterior tibial artery waveforms are monophasic. Indices The right ankle brachial index by the dorsalis pedis is 0.38. The right ankle brachial index by the posterior tibial artery is 0.43. The left ankle brachial index by the dorsalis pedis is 0.33. The left ankle brachial index by the posterior tibial artery is 0.30. VL/Lower Ext Art Exam w/o Exercis Interpretation Summary Right TAMIE 0.43, severe arterial insufficiency. Doppler/PVR waveforms and segmen devan pressures reveal [id number] femoral, distal SFA/popliteal disease. Left TAMIE 0.33,severe arterial insufficiency. Doppler/PVR waveforms and segmenta l pressures reveal [id number] femoral disease Ordering Physician: Robbie Patricia Referring Physician: Edmundo Hahn Performed By: Ruthann Vargas RVT
[2022-09-07 09:00] LABS: Procalcitonin < 0.04 ng/mL (0.00-0.09)
--- NOTE | 2022-09-07 09:28 | PCM.PN.HOSP ---
Reason for Visit Reason for Visit: Shortness of breath/cough/hypoxia Subjective Subjective Mr. Villaseñor is a 72-year-old male who was recently discharged from [facility] on 09/05/2022 presented to the emergency department [facility] on 09/07/2022 (early this morning) with worsening dyspnea as well as a cough. Evidently he was recently admitted to [facility] for unresponsiveness and hemorrhagic shock that required transient intubation due to a GI bleed. EGD was done and showed duodenal bulb ulcer. He required 5 units of packed red blood cells and several clips placed. His hospital course was complicated by urinary retention and bilateral foot wounds. He was discharged to a [facility] facility the day prior to presentation but presented here with worsening dyspnea since discharge. He complained of a concomitant cough and wheezing with no fever or chills. Work-up in the ED included T98.1, heart rate 112, BP 97/52, respiratory rate 21, 93% on 4 L nasal cannula, CBC with WBC 17.5, hemoglobin 9.7, MCV 99, platelet 595 with left shift and lymphopenia, CMP with chloride 110, BUN/creatinine 23/0.59, glucose of 111, calcium 7.9, AST/ALT 62/78, alk phos 176, chest x-ray with bibasilar pulmonary opacities and effusion suspicious for edema or multifocal pneumonia, rapid SARS COVID and influenza antigens negative.? With his leukocytosis he does have a significant left shift showing a 95% neutrophilia. Blood cultures are pending, urine cultures pending, strep pneumo and Legionella antigens are negative, respiratory viral panel was unremarkable. Sputum cultures ordered however he is not yet been able to produce one. Objective Data Objective Data Vital Signs: Vital Signs Temp Pulse Resp BP Pulse Ox O2 Del Method O2 Flow Rate 98.0 F 77 18 116/85 H 95 Nasal Cannula 5 09/07/22 05:26 09/07/22 07:15 09/07/22 07:15 09/07/22 05:26 09/07/22 05:26 09/07/22 09:17 09/07/22 09:17 Oxygen Flow Rate (L/min) 5 Oxygen Delivery Method Nasal Cannula Weight: 74.9 kg Body Mass Index (BMI) 23.1 Intake & Output: Intake and Output for Last 24 Hours 09/05/22 09/06/22 09/07/22 22:59 23:59 23:59 Intake Total 1140 / 1140 Balance 1140 / 1140 Lab / Micro Data Result Diagrams: 09/07/22 07:10 09/07/22 07:10 Labs: Laboratory Results - last 24 hr 09/07/22 01:05: WBC 17.5 H, RBC 3.12 L, Hgb 9.7 L, Hct 30.9 L, MCV 99.0 H, MCH 31.1, MCHC 31.4 L, RDW Std Deviation 57.1 H, RDW Coeff of Luis 16.1 H, Plt Count 595 H, MPV 10.8, Immature Gran % (Auto) 0.700, Neut % (Auto) 92.9 H, Lymph % (Auto) 3.3 L, [place] % (Auto) 2.2, Eos % (Auto) 0.8, Baso % (Auto) 0.1, Absolute Neuts (auto) 16.3 H, Absolute Lymphs (auto) 0.57 L, Nucleated RBC % 0, Platelet Estimate MOD INC, Anisocytosis 1+, Macrocytosis 1+ 09/07/22 01:05: Sodium 144, Potassium 3.6, Chloride 110 H, Carbon Dioxide 26.0, Anion Gap 8, BUN 23 H, Creatinine 0.59 L, Estim Creat Clear Calc 69.03, Est GFR (MDRD) Af Amer 172, Est GFR (MDRD) Non-Af 142, BUN/Creatinine Ratio 38.9 H, Glucose 111 H, Calcium 7.9 L, Total Bilirubin 0.70, AST 62 H, ALT 78 H, Alkaline Phosphatase 176 H, Total Protein 6.3 L, Albumin 1.8 L, Globulin 4.5 H, Albumin/Globulin Ratio 0.4 L 09/07/22 01:05: Phosphorus 3.1, Magnesium 1.3 L 09/07/22 03:15: PT 15.4 H, INR 1.3, APTT 29.9 09/07/22 03:15: Lactic Acid 2.0 09/07/22 04:10: COVID-19 (PERICO) Not Detected 09/07/22 04:12: Procalcitonin < 0.04 09/07/22 07:10: WBC 16.7 H, RBC 3.05 L, Hgb 9.2 L, Hct 30.9 L, MCV 101.3 H, MCH 30.2, MCHC 29.8 L D, RDW Std Deviation 59.4 H, RDW Coeff of Luis 16.3 H, Plt Count 600 H, MPV 10.7, Immature Gran % (Auto) 1.100 H, Neut % (Auto) 95.0 H, Lymph % (Auto) 1.3 L, [place] % (Auto) 1.6, Eos % (Auto) 0.6, Baso % (Auto) 0.4, Absolute Neuts (auto) 15.8 H, Absolute Lymphs (auto) 0.22 L, Nucleated RBC % 0, Platelet Estimate MOD INC 09/07/22 07:10: Sodium 143, Potassium 3.3 L, Chloride 112 H, Carbon Dioxide 23.0, Anion Gap 8, BUN 22 H, Creatinine 0.55 L, Estim Creat Clear Calc 68.66, Est GFR (MDRD) Af Amer 186, Est GFR (MDRD) Non-Af 153, BUN/Creatinine Ratio 39.7 H, Glucose 115 H, Calcium 7.7 L, Total Bilirubin 0.70, AST 53 H, ALT 70 H, Alkaline Phosphatase 162 H, Total Protein 5.9 L, Albumin 1.7 L, Globulin 4.2, Albumin/Globulin Ratio 0.4 L 09/07/22 07:10: Lactic Acid 1.8 Micro: Microbiology 09/07/22 04:10 Mucosa - Nasopharyngeal Respiratory Panel (PCR) - Final 09/07/22 04:00 Urine, Clean Catch Legionella Antigen - Final 09/07/22 04:00 Urine, Clean Catch Streptococcus pneumoniae Antigen (M - Final 09/07/22 01:05 Nasal Secretion SARS-CoV-2 & FLU Antigen (Rapid) - Final Radiography Diagnostic Testing: Radiology Impression Chest X-Ray 09/07/22 01:00 IMPRESSION: Bibasilar pulmonary opacities and effusions. Suspicious for edema or multifocal pneumonia. Electronically Signed: Miranda Schwarz MD at 2:50 EDT , Foot X-Ray 09/07/22 04:08 IMPRESSION: Mild soft tissue swelling. No daylin bone destructive changes. Marked first MTP joint degenerative changes. Electronically Signed: Miranda Schwarz MD at 5:08 EDT , Assessment & Plan Assessment/Plan (1) Acute respiratory failure with hypoxia: (2) Sepsis: (3) Peripheral vascular disease, unspecified: (4) Non-pressure chronic ulcer of other part of right foot with necrosis of muscle: (5) HCAP (healthcare-associated pneumonia): (6) Anemia: PLAN: Plan Sepsis secondary to pneumonia -Patient with primary Medicare therefore meets sepsis criteria with 2 SIRS criteria plus source -Patient did not require fluid boluses -Cultures are pending -Lactate was normal at 1.8 -Continue broad-spectrum antibiotics -Procalcitonin was negative -Nursing with some concern for aspiration-consult speech therapy -N.p.o. for now Acute hypoxic respiratory failure secondary to pneumonia -Patient on room air at baseline -Now requiring 5 L supplemental nasal cannula -As needed BiPAP -Chest x-ray shows infiltrates -COVID rapid/flu are negative -COVID PCR is negative -Respiratory viral panel is negative -Strep pneumo and Legionella antigens are negative -Sputum culture pending -Blood cultures are pending -Continue DuoNebs and as needed albuterol -Continue IV Solu-Medrol -Continue vancomycin and Zosyn with recent hospitalization -Speech therapy consultation -N.p.o. -Okay for meds with applesauce Acute bilateral foot wounds -X-ray of the foot shows mild soft tissue swelling with no daylin bone destructive changes -Appear to be vascular in nature -PVRs ordered -Podiatry recommended vascular consult--> consult to Dr. Solis placed -ESR and CRP as expected are markedly elevated -Continue broad-spectrum antibiotics -Wound care is following Acute urinary retention -Patient with Soto catheter from facility -Was placed during last hospitalization -Continue Flomax -Consider removal of Soto -Check UA -If able to remove we will get PVRs -Recommend outpatient follow-up with urology Recent GI bleed secondary to duodenal ulcer -Patient is anemic but stable -Did require 5 units transfusion during that hospitalization -EGD performed and showed duodenal ulcer that required clipping -Continue PPI 40 mg p.o. twice daily -Hemoglobin at discharge from [facility] was 8.6 History of stroke/bilateral carotid stenosis/HTN/HPL -Continue statin -Aspirin on hold due to recent GI bleed--> resume when okay with GI after outpatient follow-up -Blood pressure regimen on hold--> restart once blood pressure stabilizes -As needed hydralazine BPH -Continue Flomax Anxiety/depression -Continue sertraline Chronic transaminitis -Slightly improved from admission -If remains elevated consider further work-up History of alcohol abuse -Patient quit drinking following his stroke -Encourage continued sobriety Tobacco abuse -Encouraged cessation -Nicotine replacement available if desired DVT prophylaxis -SCDs -Chemoprophylaxis deferred due to recent GI bleeding CODE STATUS -DNR CCA no intubation--> order placed
[2022-09-07 10:29] LABS: Magnesium 2.4 mg/dL (1.6-2.6)
[2022-09-07 10:40] LABS: Erythrocyte Sedimentation Rate 55 mm/hr (0-20)
--- NOTE | 2022-09-07 11:20 | RAD_ITS ---
STUDY: X-RAY CHEST REASON FOR EXAM: Male, 72 years old. Difficulty breathing TECHNIQUE: 2 AP portable views COMPARISON: Earlier this morning FINDINGS: EKG leads overlie the chest Lungs are expanded, improvement since the previous study with decrease opacifications in both lung bases since the previous study, no demonstrated effusions... Normal size heart. Normal mediastinum and martin. Normal visualized pulmonary arteries. There is atherosclerotic calcification of the aortic arch with tortuosity. There are diffuse degenerative changes of the visualized thoracic spine. There is degenerative osteoarthritis of the bilateral shoulders. There is no demonstrated abnormality of the visualized soft tissue structures of the upper abdomen. RAD/Chest 1 View (Portable) IMPRESSION: Overall improvement compared to the previous study with decreased opacifications in both lower lung lopez since the previous study. Follow-up recommended to assure complete resolution Electronically Signed: Zeeshan Logan MD at 11:38 EDT ,
--- NOTE | 2022-09-07 11:25 | WOUNDNOTE ---
wound photo: left dorsal foot
--- NOTE | 2022-09-07 11:26 | WOUNDNOTE ---
wound photo: left heel
--- NOTE | 2022-09-07 11:26 | WOUNDNOTE ---
wound photo: right dorsal foot
--- NOTE | 2022-09-07 11:27 | WOUNDNOTE ---
wound photo: right lateral lower leg/foot
--- NOTE | 2022-09-07 11:27 | WOUNDNOTE ---
wound photo: right heel
[2022-09-07 11:29] LABS: BNP,B-Type NATRIURETIC PEPTIDE 34.4 pg/mL (0-100)
--- NOTE | 2022-09-07 12:41 | PCM.CONS.GEN ---
Assessment & Plan Assessment/Plan (1) Non-pressure chronic ulcer of other part of right foot with necrosis of muscle: PLAN: Exam performed Patient appears to have dry gangrene with overlying cellulitis to right lower extremity Leukocytosis and tachycardia noted. CRP/ESR elevated Patient has arterial studies from October 2020, demonstrated moderate to severe arteriocclussive disease at that time new arterial studies ordered Recommend constant heel offloading dressed sites with betadine/DSD recommend vascular consult discussed wtih patient and family that he may require more proximal amputation, will await vascular studies and vascular surgery input. (2) Peripheral vascular disease, unspecified: HPI Consult Data Date of Consult: 09/07/22 HPI Narrative Reason for Consultation: B/L foot wounds HPI Narrative: NIKOLAS ADAMS, is a 72 M who presents with dyspnea in setting of pneumonia. Patient has chronic bilateral lower extremity wounds, Right has been worse and has progressiely worsened. Patient recently discharged from [facility] and was ultimately re-admitted two days later. Patient seen bedside, difficult of hearing. Denies any pain to wound sites, uncertain of when they started. Patient has a history of smoking, CVA and heavy alcohol use. [facility] Medical History Anxiety and depression Bilateral carotid artery stenosis Cervical spondylosis Cervical stenosis of spinal canal Cognitive dysfunction Essential (primary) hypertension Glucose intolerance (impaired glucose tolerance) History of alcohol abuse History of stroke (08/01/20) Hyperlipidemia Hyponatremia Mass of parotid gland Peripheral vascular occlusive disease Presbycusis of both ears Stenosis of right vertebral artery Tobacco dependence due to cigarettes Home Medications amlodipine 10 mg tablet 10 mg PO DAILY #30 tabs 08/19/20 [Rx Last Taken Unknown] atorvastatin 40 mg tablet 40 mg PO QHS #30 tabs 08/19/20 [Rx Last Taken Unknown] ascorbic acid (vitamin C) 500 mg tablet (Vitamin C) 500 mg PO DAILY 09/07/22 [History Last Taken Unknown] cephalexin 500 mg capsule 500 mg PO TID 09/07/22 [History Last Taken Unknown] lisinopril 20 mg tablet 20 mg PO QHS 09/07/22 [History Last Taken Unknown] multivitamin,tx-minerals 1 tab PO DAILY 09/07/22 [History Last Taken Unknown] pantoprazole 40 mg tablet,delayed release 40 mg PO BID 09/07/22 [History Last Taken Unknown] sertraline 100 mg tablet 100 mg PO DAILY 09/07/22 [History Last Taken Unknown] sulfamethoxazole 800 mg-trimethoprim 160 mg tablet 2 tab PO DAILY foot wound 09/07/22 [History Last Taken Unknown] tamsulosin 0.4 mg capsule 0.4 mg PO DAILY 09/07/22 [History Last Taken Unknown] Allergy/AdvReac Type Severity Reaction Status Date / Time No Known Allergies Allergy Verified 07/13/22 13:01 Family History Father Dementia Mother Dementia Surgical History no surgical history Social History household members: none Smoking Status: Current every day smoker tobacco type: cigarettes Smoking packs per day: 1 Smoking cigarettes per day: 20.0 Tobacco: How many years used: 40 Electronic Cigarette Use: with nicotine second hand exposure: Yes alcohol intake: former year quit: 2020 substance use type: does not use caffeine: Yes (4 cups daily) Type: coffee seatbelt use: sometimes Physical Exam Narrative DP/PT pulses to right lower extremity non-palpable, monophasic on doppler exam. Focal increase in warmth to right leg and foot with erythema and edema. Diffuse necrotic, dry ulceration to dorsal right foot extending along lateral ankle with multiple patches extending into the leg. Diffuse edema, erythema and warmth to right leg. Stable ulceration left foot, no concern for infection. Const alert and oriented x3 Lab / Micro Data Result Diagrams: 09/07/22 07:10 09/07/22 07:10 Labs: Laboratory Results - last 24 hr 09/07/22 01:05: WBC 17.5 H, RBC 3.12 L, Hgb 9.7 L, Hct 30.9 L, MCV 99.0 H, MCH 31.1, MCHC 31.4 L, RDW Std Deviation 57.1 H, RDW Coeff of Luis 16.1 H, Plt Count 595 H, MPV 10.8, Immature Gran % (Auto) 0.700, Neut % (Auto) 92.9 H, Lymph % (Auto) 3.3 L, [place] % (Auto) 2.2, Eos % (Auto) 0.8, Baso % (Auto) 0.1, Absolute Neuts (auto) 16.3 H, Absolute Lymphs (auto) 0.57 L, Nucleated RBC % 0, Platelet Estimate MOD INC, Anisocytosis 1+, Macrocytosis 1+ 09/07/22 01:05: Sodium 144, Potassium 3.6, Chloride 110 H, Carbon Dioxide 26.0, Anion Gap 8, BUN 23 H, Creatinine 0.59 L, Estim Creat Clear Calc 69.03, Est GFR (MDRD) Af Amer 172, Est GFR (MDRD) Non-Af 142, BUN/Creatinine Ratio 38.9 H, Glucose 111 H, Calcium 7.9 L, Total Bilirubin 0.70, AST 62 H, ALT 78 H, Alkaline Phosphatase 176 H, Total Protein 6.3 L, Albumin 1.8 L, Globulin 4.5 H, Albumin/Globulin Ratio 0.4 L 09/07/22 01:05: Phosphorus 3.1, Magnesium 1.3 L 09/07/22 03:15: PT 15.4 H, INR 1.3, APTT 29.9 09/07/22 03:15: Lactic Acid 2.0 09/07/22 04:10: COVID-19 (PERICO) Not Detected 09/07/22 04:12: Procalcitonin < 0.04 09/07/22 07:10: WBC 16.7 H, RBC 3.05 L, Hgb 9.2 L, Hct 30.9 L, MCV 101.3 H, MCH 30.2, MCHC 29.8 L D, RDW Std Deviation 59.4 H, RDW Coeff of Luis 16.3 H, Plt Count 600 H, MPV 10.7, Immature Gran % (Auto) 1.100 H, Neut % (Auto) 95.0 H, Lymph % (Auto) 1.3 L, [place] % (Auto) 1.6, Eos % (Auto) 0.6, Baso % (Auto) 0.4, Absolute Neuts (auto) 15.8 H, Absolute Lymphs (auto) 0.22 L, Nucleated RBC % 0, Platelet Estimate MOD INC 09/07/22 07:10: Sodium 143, Potassium 3.3 L, Chloride 112 H, Carbon Dioxide 23.0, Anion Gap 8, BUN 22 H, Creatinine 0.55 L, Estim Creat Clear Calc 68.66, Est GFR (MDRD) Af Amer 186, Est GFR (MDRD) Non-Af 153, BUN/Creatinine Ratio 39.7 H, Glucose 115 H, Calcium 7.7 L, Total Bilirubin 0.70, AST 53 H, ALT 70 H, Alkaline Phosphatase 162 H, Total Protein 5.9 L, Albumin 1.7 L, Globulin 4.2, Albumin/Globulin Ratio 0.4 L 09/07/22 07:10: Lactic Acid 1.8 09/07/22 07:10: ESR 55 H 09/07/22 07:10: C-React Prot Ext Range 64.40 H 09/07/22 07:10: B-Natriuretic Peptide 34.4 09/07/22 10:07: Magnesium 2.4 Micro: Microbiology 09/07/22 04:10 Mucosa - Nasopharyngeal Respiratory Panel (PCR) - Final 09/07/22 04:00 Urine, Clean Catch Legionella Antigen - Final 09/07/22 04:00 Urine, Clean Catch Streptococcus pneumoniae Antigen (M - Final 09/07/22 01:05 Nasal Secretion SARS-CoV-2 & FLU Antigen (Rapid) - Final Radiology Impression Chest X-Ray 09/07/22 01:00 IMPRESSION: Bibasilar pulmonary opacities and effusions. Suspicious for edema or multifocal pneumonia. Electronically Signed: Miranda Schwarz MD at 2:50 EDT , Foot X-Ray 09/07/22 04:08 IMPRESSION: Mild soft tissue swelling. No daylin bone destructive changes. Marked first MTP joint degenerative changes. Electronically Signed: Miranda Schwarz MD at 5:08 EDT , Chest X-Ray 09/07/22 11:20 IMPRESSION: Overall improvement compared to the previous study with decreased opacifications in both lower lung lopez since the previous study. Follow-up recommended to assure complete resolution Electronically Signed: Zeeshan Logan MD at 11:38 EDT ,
[2022-09-07] MEDS: Tamsulosin HCl 0.4 MG Capsule PO (14:27)
[2022-09-07] MEDS: Pantoprazole Sodium 40 MG Tablet PO (14:27)
[2022-09-07] MEDS: Sertraline 100 MG Tablet PO (14:27)
[2022-09-07] MEDS: Ascorbic Acid 500 MG Tablet PO (14:27)
[2022-09-07] MEDS: Multivitamins,Ther W-Minerals Tablet 1 TABLET PO (14:27)
[2022-09-07] MEDS: Potassium Chloride Oral Tablet 20 MEQ 40 MEQ PO (14:28)
--- NOTE | 2022-09-07 15:59 | CPS ---
smi and pep not started. patient has been on bipap all day
[2022-09-07 22:29] LABS: Mucous, Urine 0 SEEN /hpf (<or=2+); Red Blood Cells-Urine 0 SEEN /hpf (0-5); Squamous Epithelial Cells - UA 0 SEEN /hpf (0-5)
[2022-09-07 22:43] LABS: Color, Urine Yellow (Yellow); Glucose, Dipstick Normal (Normal); Ketone-Dipstick 5 mg/dl (Negative); Leukocyte Esterase-Dipstick 100 /ul (Negative); Nitrite-Dipstick Negative (Negative); Occult Blood-Urine 25 /ul (Negative); Protein-Dipstick 30 mg/dl (Negative); Specific Gravity, Urine 1.025 (1.002-1.030); Urine Bilirubin Dipstick Negative (Negative); Urine Clarity Clear (Clear); Urine Urobilinogen Normal (Normal)
[2022-09-07 22:49] LABS: Bacteria 1+ /hpf (None Seen); White Blood Cells 5-10 SEEN /hpf (0-5); Yeast-Urine 1+ /hpf (None Seen)
[2022-09-08] VITALS (12 sets, daily range): BP systolic 137–161; BP diastolic 56–64; PULSE 81–122; RESP 12–22; TEMP 36.1–37.1; O2SAT 94–100; BMI 23.3
[2022-09-08 06:08] LABS: Absolute Lymphocyte Count 0.26 X10^3/uL (0.83-4.51); Absolute Neutrophil Count 11.8 X10^3/uL (2.0-7.7); Basophil# 0.02 X10^3/uL; Basophil% 0.2 % (0-1); Hematocrit 25.9 % (40-54); Hemoglobin 7.9 g/dL (13.0-16.5); Lymphocyte # 0.26 X10^3/ul (0.83-4.51); Lymphocyte % 2.1 % (19-41); Mean Corp Hgb Conc 30.5 g/dL (32-36); Mean Corpuscular Hgb 30.4 pg (27.0-32.0); Mean Corpuscular Volume 99.6 fL (80-94); Mean Platelet Vol. 10.8 fl (6.2-12.0); Monocyte# 0.34 X10^3/uL; Monocyte% 2.7 % (0-10); NRBC Flagged by Analyzer 0 % (0-5); Neutrophil # 11.75 X10^3/uL (2.7-7.7); Neutrophil % 93.8 % (47-70); POSITIVE DIFFERENTIAL YES; Platelet Count 556 K/mm3 (150-450); RBC Distribution Width CV 16.5 % (11.6-14.6); RBC Distribution Width SD 58.6 fl (35.1-43.9); White Blood Count 12.5 K/mm3 (4.4-11.0)
[2022-09-08 06:17] LABS: Differential Indicated SCAN CRITERIA MET
[2022-09-08 06:41] LABS: ALB/GLOB Ratio 0.4 RATIO (0.9-2.4); AST(SGOT) 34 U/L (15-37); Alanine Aminotransfer ALT/SGPT 59 U/L (16-61); Albumin, Serum 1.6 g/dL (3.2-5.0); Alkaline Phosphatase 149 U/L (45-117); Anion Gap 6 (5-15); BUN 24 mg/dL (7-18); BUN/Creat Ratio 43.9 RATIO (10-20); Calcium,Total 7.8 mg/dL (8.5-10.1); Chloride 114 mmol/L (98-107); Creatinine, Serum 0.55 mg/dL (0.70-1.30); EST Glomerular Filtration Rate 156 mL/min (>60); Est Glom Filt Rate - Afr Amer 188 mL/min (>60); Estimated Creatinine Clearance 68.66 ml/min; Globulin 4.2 g/dL (2.2-4.2); Glucose 128 mg/dL (74-106); Phosphorus 2.9 mg/dL (2.5-4.9); Potassium 3.7 mmol/L (3.5-5.1); Protein, Total 5.8 g/dL (6.4-8.2); Sodium Level 144 mmol/L (136-145); Thyroid Stim Hormone (TSH) 0.86 uIU/mL (0.358-3.74)
[2022-09-08 06:54] LABS: Differential Comment SCANNED
[2022-09-08] MEDS: Ipratropium/Albuterol Sulfate 3 ML AMPUL.NEB INHALATION ×3 (07:32→20:08)
--- NOTE | 2022-09-08 08:23 | PCM.PROGNOTE ---
Subjective Subjective This 72 year old male seen for follow up on bilateral lower extermity wounds with severe PAD and right sided cellulitis. Patient being treated for pneumonia. No changes overnight. Objective Data Objective Data Vital Signs: Vital Signs Temp Pulse Resp BP Pulse Ox O2 Del Method O2 Flow Rate 97.0 F L 81 15 137/60 H 100 Bi-pap 6 09/08/22 04:00 09/08/22 04:48 09/08/22 04:48 09/08/22 04:00 09/08/22 04:48 09/08/22 07:52 09/07/22 21:33 FiO2 35 09/08/22 04:48 Oxygen Flow Rate (L/min) 6 Oxygen Delivery Method Bi-pap Weight: 75.7 kg Body Mass Index (BMI) 23.3 Intake & Output: Intake and Output for Last 24 Hours 09/06/22 09/07/22 09/08/22 23:59 23:59 23:59 Intake Total 1625 / 1625 325 / 325 Output Total 750 / 750 225 / 225 Balance 875 / 875 100 / 100 Medical Nutrition Assessment Dietitian: Malnutrition Criteria Met Start: 09/07/22 15:32 Freq: Status: Active Protocol: Document 09/07/22 15:32 RMA (Rec: 09/07/22 15:32 RMA [id number]) Nutrition Malnutrition Evidence of Malnutrition Exists Yes Malnutrition (moderate): Chronic Evidenced By Suboptimal Energy Intake ( Moderate),Weight Loss ( Moderate) Intake Problem Increased Nutrient Needs (specify) Etiology for protein related to increased demands for wound healing Signs/Symptoms as evidenced by multiple areas of skin breakdown/wounds Status Active Problem Clinical Problem Chronic Disease or Condition Related Malnutrition Etiology 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 Will add Alfonso BID for wound healing. Will add 240 ml ensure plus high protein BID w/ breakfast and dinner meals. Adjust ONS as needed to optimize PO and prevent wt loss. Lab / Micro Data Result Diagrams: 09/08/22 05:25 09/08/22 05:25 Labs: Laboratory Results - last 24 hr 09/07/22 04:10: COVID-19 ([facility]) Not Detected 09/07/22 04:12: Procalcitonin < 0.04 09/07/22 07:10: ESR 55 H 09/07/22 07:10: C-React Prot Ext Range 64.40 H 09/07/22 07:10: B-Natriuretic Peptide 34.4 09/07/22 10:07: Magnesium 2.4 09/07/22 22:25: Urine Color Yellow, Urine Clarity Clear, Urine pH 5.0, Ur Specific [place] 1.025, Urine Protein 30 H, Urine Glucose (UA) Normal, Urine Ketones 5 H, Urine Occult Blood 25 H, Urine Nitrite Negative, Urine Bilirubin Negative, Urine Urobilinogen Normal, Ur Leukocyte Esterase 100 H, Urine RBC 0 SEEN, Urine WBC 5-10 SEEN, Ur Squamous Epith Cells 0 SEEN, Urine Bacteria 1+, Urine Mucus 0 SEEN, Urine Yeast 1+ 09/08/22 05:25: WBC 12.5 H, RBC 2.60 L, Hgb 7.9 L, Hct 25.9 L, MCV 99.6 H, MCH 30.4, MCHC 30.5 L, RDW Std Deviation 58.6 H, RDW Coeff of Luis 16.5 H, Plt Count 556 H, MPV 10.8, Immature Gran % (Auto) 1.200 H, Neut % (Auto) 93.8 H, Lymph % (Auto) 2.1 L, [place] % (Auto) 2.7, Eos % (Auto) 0.0, Baso % (Auto) 0.2, Absolute Neuts (auto) 11.8 H, Absolute Lymphs (auto) 0.26 L, Nucleated RBC % 0, Differential Comment SCANNED 09/08/22 05:25: Sodium 144, Potassium 3.7, Chloride 114 H, Carbon Dioxide 24.0, Anion Gap 6, BUN 24 H, Creatinine 0.55 L, Estim Creat Clear Calc 68.66, Est GFR (MDRD) Af Amer 188, Est GFR (MDRD) Non-Af 156, BUN/Creatinine Ratio 43.9 H, Glucose 128 H, Calcium 7.8 L, Phosphorus 2.9, Magnesium 2.0, Total Bilirubin 0.40, AST 34, ALT 59, Alkaline Phosphatase 149 H, Total Protein 5.8 L, Albumin 1.6 L, Globulin 4.2, Albumin/Globulin Ratio 0.4 L, TSH 0.86 Micro: Microbiology 09/07/22 04:10 Mucosa - Nasopharyngeal Respiratory Panel (PCR) - Final 09/07/22 04:00 Urine, Clean Catch Legionella Antigen - Final 09/07/22 04:00 Urine, Clean Catch Streptococcus pneumoniae Antigen (M - Final 09/07/22 01:05 Nasal Secretion SARS-CoV-2 & FLU Antigen (Rapid) - Final Radiography Diagnostic Testing: Radiology Impression Extremity Arterial Study 09/07/22 08:14 Interpretation Summary Right TAMIE 0.43, severe arterial insufficiency. Doppler/PVR waveforms and segmental pressures reveal ygnor-dxhxa-[id number] femoral, distal SFA/popliteal disease. Left TAMIE 0.33,severe arterial insufficiency. Doppler/PVR waveforms and segmental pressures reveal nenyj-[id number] femoral disease Ordering Physician: Robbie Patricia Referring Physician: Edmundo Hahn Performed By: Ruthann Vargas Jhonatan Chest X-Ray 09/07/22 11:20 IMPRESSION: Overall improvement compared to the previous study with decreased opacifications in both lower lung lopez since the previous study. Follow-up recommended to assure complete resolution Electronically Signed: Zeeshan Logan MD at 11:38 EDT , Physical Exam Narrative DP/PT pulses to right lower extremity non-palpable, monophasic on doppler exam. Focal increase in warmth to right leg and foot with erythema and edema. Diffuse necrotic, dry ulceration to dorsal right foot extending along lateral ankle with multiple patches extending into the leg. Improved edema, erythema and warmth to right leg. Stable ulceration left foot, no concern for infection. Const alert and oriented x3 Assessment & Plan Assessment/Plan (1) Non-pressure chronic ulcer of other part of right foot with necrosis of muscle: PLAN: Exam performed Cellulitis to right side improved today Vascular studies demonstrate severe arteriocclusive disease bilaterally, pending vascular evaluation continuing daily dressing changes without compression and heel offloading Patient receving IV vanc/zosyn will continue to follow closely Patient is high risk for proximal amputation (2) Peripheral vascular disease, unspecified:
[2022-09-08] MEDS: Sertraline 100 MG Tablet PO (09:33)
[2022-09-08] MEDS: Pantoprazole Sodium 40 MG Tablet PO ×2 (09:33→21:29)
[2022-09-08] MEDS: Multivitamins,Ther W-Minerals Tablet 1 TABLET PO (09:33)
[2022-09-08] MEDS: Ascorbic Acid 500 MG Tablet PO ×3 (09:33→17:27)
[2022-09-08] MEDS: Tamsulosin HCl 0.4 MG Capsule PO (09:33)
--- NOTE | 2022-09-08 09:42 | CT_ITS ---
STUDY: CTA OF THE ABDOMINAL AORTA AND BILATERAL LOWER EXTREMITIES REASON FOR EXAM: Male, 72 years old. Atherosclerosis with ulceration TECHNIQUE: Axial CT angiography multi-detector data acquisition was obtained following intravenous administration of 100mL Isovue-370 contrast. Axial images and MIP images were reconstructed from the axial data set. Post-processing of the angiographic images was performed, with multiplanar reformation and 3D reconstruction. MIPS images were obtained. Radiation: CTDIvol = [9.36] mGy, DLP = [2412.86] mGy-cm Individualized dose optimization techniques were used for this CT. COMPARISON: None. Descriptors of Narrowing: None (0%) Mild (< 50%) Moderate (50-70%) Severe (70-90%) Subtotal/Total Occlusion (90-100%) Non-Evaluable (technically non-diagnostic FINDINGS: There are bilateral pleural effusions. There is bilateral pneumonia. The visualized portions of the heart are within normal limits. Normal liver. Normal gallbladder and extrahepatic biliary system. Normal spleen. Normal pancreas. Normal bilateral adrenal glands. There are hypodensities in the right kidney. These are consistent for cysts. No follow up required. There are hypodensities in the left kidney. These are consistent for cysts. No follow up required. Scattered calcifications around the region of the pancreas and duodenum. There is a small hiatal hernia. Normal small intestine. Large amount of stool in the rectal vault can suggest constipation. The appendix is visualized and appears normal. Normal inferior vena cava. Normal retroperitoneum. Urinary bladder wall has wall thickening. This can be related to a partially contractile state. However, a cystitis is not excluded. Urinalysis should be performed in an effort to exclude cystitis. There is a Soto balloon catheter in the urinary bladder. Air in the urinary bladder. This is likely iatrogenic. There are prostatic cyst and calcifications. There is a small umbilical hernia containing fat. There are diffuse degenerative changes of the visualized lumbar spine. There is an unremarkable-appearing IVC. There is a left-sided inguinal hernia containing adipose tissue. Abdominal aorta: There are calcifications of the abdominal aorta. This is consistent for atherosclerotic disease. There is no abdominal aortic aneurysm. Celiac :There is mild diffuse narrowing. Superior mesenteric arteries: There is severe diffuse narrowing. Inferior mesenteric artery: There is mild diffuse narrowing. Right renal artery(arteries): There is severe diffuse narrowing. Left renal artery(arteries): There is severe diffuse narrowing. Right common iliac artery: There is mild diffuse narrowing. Right external iliac artery: There is mild diffuse narrowing. Right internal iliac artery: There is mild diffuse narrowing. Left common iliac artery: There is mild diffuse narrowing. Left external iliac artery: There is mild diffuse narrowing. Left internal iliac artery: There is mild diffuse narrowing. RIGHT LOWER EXTREMITY Right common femoral artery: There is severe diffuse narrowing. Right profundus femoris: There is moderate diffuse narrowing. Right superficial femoral: There is moderate diffuse narrowing. Right popliteal artery: There is severe stenosis throughout the artery. There is an occlusion in the artery but with distal reconstitution. Right tibioperoneal trunk: There is mild diffuse narrowing. Right anterior tibial artery: There is mild diffuse narrowing, with visualization of the vessel to the proximal calf. Right posterior tibial artery: Multiple levels of severe stenosis throughout the artery. There is an occlusion in the artery but with distal reconstitution. Right peroneal artery: Multilevel severe stenosis of the artery. LEFT LOWER EXTREMITY Left common femoral artery: There is moderate diffuse narrowing. Left profundus femoris: There is moderate diffuse narrowing. Left superficial femoral: There is moderate diffuse narrowing. Left popliteal artery: There is moderate diffuse narrowing. Left tibioperoneal trunk: There is moderate diffuse narrowing. Left anterior tibial artery: There is moderate diffuse narrowing, with visualization of the vessel to the proximal calf. Left posterior tibial artery: There is moderate diffuse narrowing, with visualization of the vessel to the proximal calf. Left peroneal artery: There is moderate diffuse narrowing, with visualization of the vessel to the proximal calf. CT/CTA Abd w/Runoff W/WO Contrast IMPRESSION: (NOT LISTED IN ORDER OF SIGNIFICANCE) There are bilateral pleural effusions. There is bilateral pneumonia. Urinary bladder wall has wall thickening. This can be related to a partially contractile state. However, a cystitis is not excluded. Urinalysis should be performed in an effort to exclude cystitis. Superior mesenteric arteries: There is severe diffuse narrowing. Right renal artery(arteries): There is severe diffuse narrowing. Left renal artery(arteries): There is severe diffuse narrowing. Constipation. Right popliteal artery: There is severe stenosis throughout the artery. There is an occlusion in the artery but with distal reconstitution. Electronically Signed: Henry Victoria MD at 15:07 EDT ,
[2022-09-08] MEDS: Ferrous Sulfate 325 MG Tablet PO ×3 (09:44→17:28)
[2022-09-08] MEDS: Juven (unflavored) Packet 1 PACKET PO ×2 (09:44→17:28)
[2022-09-08] MEDS: guaiFENesin 1,200 MG Tablet 1200 MG PO ×2 (09:45→21:29)
--- NOTE | 2022-09-08 14:42 | CON.PCM.SX_ITS ---
Assessment & Plan Assessment/Plan (1) Atherosclerosis of right lower extremity with ulceration: PLAN: Plan LEAS revealed R TAMIE 0.43 (PT) 0.38 (DP), L TAMIE 0.30 (PT) 0.33 (DP), and monophasic waveforms. CTA with runoff revealed diffuse severe atherosclerotic stenoses, notably of bilateral iliac and femoral arteries. This patient would benefit from revascularization but would require an open procedure/general anesthesia, whether femoral endarterectomy, bypass, or shockwave therapy with concurrent ballooning/stenting which would be pursued on an outpatient basis after otherwise medically stable. With recent significant GI bleed/hemorrhagic shock and now with pneumonia/sepsis would want to ensure he is medically optimized from cardiology and pulmonary perspective prior to pursuing any vascular surgical intervention unless a more emergent need arises such as infection/gangrene. Additionally, patient would require antiplatelet therapy following any vascular intervention and would want GI evaluation to determine if patient could tolerate this safely with respect to recent GI bleed. Will continue to follow while he is in hospital and will ensure outpatient follow-up is arranged with our office. HPI Consult Data Date of Consult: 09/08/22 HPI Narrative HPI Narrative: NIKOLAS ADAMS, is a 72 M who is admitted for bilateral pneumonia with associated acute hypoxic respiratory failure and sepsis.He is on broad spectrum IV antibiotics. He was also noted to have multiple ulcerations of right foot, at initial presentation also with associated cellulitis, for which we are consulted. Dr. Patricia is also consulted regarding these wounds. Patient has medical history significant for CVA in 2020, CAD, HTN. Last week he had been admitted to [facility] for hemorrhagic shock secondary to GI bleed from duodenal ulcer and ultimately was discharged to SNF where he was for less than 2 days before being admitted here for pneumonia. He denies COPD diagnosis, denies hsitory of recurrent bronchitis/pneumonia. He does smoke. He does not follow with pulmonary at this time. He has been seen by cardiology at [facility] following his CVA to r/o Afib as possible source. He denies history of claudication symptoms, prior endovascular intervention, prior wounds, VTE. [facility] Medical History Anxiety and depression Bilateral carotid artery stenosis Cervical spondylosis Cervical stenosis of spinal canal Cognitive dysfunction Essential (primary) hypertension Glucose intolerance (impaired glucose tolerance) History of alcohol abuse History of stroke (08/01/20) Hyperlipidemia Hyponatremia Mass of parotid gland Peripheral vascular occlusive disease Presbycusis of both ears Stenosis of right vertebral artery Tobacco dependence due to cigarettes Home Medications amlodipine 10 mg tablet 10 mg PO DAILY #30 tabs 08/19/20 [Rx Last Taken Unknown] atorvastatin 40 mg tablet 40 mg PO QHS #30 tabs 08/19/20 [Rx Last Taken Unknown] ascorbic acid (vitamin C) 500 mg tablet (Vitamin C) 500 mg PO DAILY 09/07/22 [History Last Taken Unknown] cephalexin 500 mg capsule 500 mg PO TID 09/07/22 [History Last Taken Unknown] lisinopril 20 mg tablet 20 mg PO QHS 09/07/22 [History Last Taken Unknown] multivitamin,tx-minerals 1 tab PO DAILY 09/07/22 [History Last Taken Unknown] pantoprazole 40 mg tablet,delayed release 40 mg PO BID 09/07/22 [History Last Taken Unknown] sertraline 100 mg tablet 100 mg PO DAILY 09/07/22 [History Last Taken Unknown] sulfamethoxazole 800 mg-trimethoprim 160 mg tablet 2 tab PO DAILY foot wound 09/07/22 [History Last Taken Unknown] tamsulosin 0.4 mg capsule 0.4 mg PO DAILY 09/07/22 [History Last Taken Unknown] Allergy/AdvReac Type Severity Reaction Status Date / Time No Known Allergies Allergy Verified 07/13/22 13:01 Family History Father Dementia Mother Dementia Surgical History no surgical history Social History household members: none Smoking Status: Current every day smoker tobacco type: cigarettes Smoking packs per day: 1 Smoking cigarettes per day: 20.0 Tobacco: How many years used: 40 Electronic Cigarette Use: with nicotine second hand exposure: Yes alcohol intake: former year quit: 2020 substance use type: does not use caffeine: Yes (4 cups daily) Type: coffee seatbelt use: sometimes Physical Exam Const alert, oriented x3 and no apparent distress General Appearance: cooperative HEENT normocephalic, hearing grossly normal bilaterally and external ears normal Head and Scalp: normal to inspection, normocephalic and atraumatic Nose: external nose normal Eyes EOMs intact bilaterally General Eye: normal appearance of both eyes Neck General: normal visual inspection and trachea midline Resp normal respiratory effort Effort and Inspection: able to speak in complete sentences and symmetric chest movement; Negative for respiratory distress, stridor, retractions, uses accessory muscles or audible wheezes Cardio regular rate and regular rhythm Extremity Extremity Narrative: Bilateral feet/ankles wrapped in kerlix. No significant erythema, swelling, brui sing, warmth, drainage. Bilateral PT monophasic doppler signals, did not unwrap enough to assess DP pulses. Bilateral femoral pulses diminished to palpation. Peripheral Pulses: Yes brachial pulses present and radial pulses present Skin no rashes or lesions noted Wounds: wounds noted Wound Narrative: Dressings not removed, did review wound care nurse photos which shows multiple ulcerations to plantar surface of foot without necrotic tissue present and large ulceration to dorsal aspect of foot with necrotic appearance. Neuro oriented x3, CN's II-XII intact bilaterally and moves all extremities Speech: speech normal Psych mental status grossly normal Appearance: grossly normal Attitude: calm Speech: normal speech Attention / Concentration: attention grossly intact Memory / Cognition: memory grossly intact Medical Records Data Medical Nutrition Assessment Dietitian: Malnutrition Criteria Met Start: 09/07/22 15:32 Freq: Status: Active Protocol: Document 09/07/22 15:32 RMA (Rec: 09/07/22 15:32 RMA [id number]) Nutrition Malnutrition Evidence of Malnutrition Exists Yes Malnutrition (moderate): Chronic Evidenced By Suboptimal Energy Intake ( Moderate),Weight Loss ( Moderate) Intake Problem Increased Nutrient Needs (specify) Etiology for protein related to increased demands for wound healing Signs/Symptoms as evidenced by multiple areas of skin breakdown/wounds Status Active Problem Clinical Problem Chronic Disease or Condition Related Malnutrition Etiology 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 Will add Alfonso BID for wound healing. Will add 240 ml ensure plus high protein BID w/ breakfast and dinner meals. Adjust ONS as needed to optimize PO and prevent wt loss. Lab / Micro Data Result Diagrams: 09/08/22 11:58 09/08/22 05:25 Labs: Laboratory Results - last 24 hr 09/07/22 22:25: Urine Color Yellow, Urine Clarity Clear, Urine pH 5.0, Ur Specific [place] 1.025, Urine Protein 30 H, Urine Glucose (UA) Normal, Urine Ketones 5 H, Urine Occult Blood 25 H, Urine Nitrite Negative, Urine Bilirubin Negative, Urine Urobilinogen Normal, Ur Leukocyte Esterase 100 H, Urine RBC 0 SEEN, Urine WBC 5-10 SEEN, Ur Squamous Epith Cells 0 SEEN, Urine Bacteria 1+, Urine Mucus 0 SEEN, Urine Yeast 1+ 09/08/22 05:25: WBC 12.5 H, RBC 2.60 L, Hgb 7.9 L, Hct 25.9 L, MCV 99.6 H, MCH 30.4, MCHC 30.5 L, RDW Std Deviation 58.6 H, RDW Coeff of Luis 16.5 H, Plt Count 556 H, MPV 10.8, Immature Gran % (Auto) 1.200 H, Neut % (Auto) 93.8 H, Lymph % (Auto) 2.1 L, [place] % (Auto) 2.7, Eos % (Auto) 0.0, Baso % (Auto) 0.2, Absolute Neuts (auto) 11.8 H, Absolute Lymphs (auto) 0.26 L, Nucleated RBC % 0, Differential Comment SCANNED 09/08/22 05:25: Sodium 144, Potassium 3.7, Chloride 114 H, Carbon Dioxide 24.0, Anion Gap 6, BUN 24 H, Creatinine 0.55 L, Estim Creat Clear Calc 68.66, Est GFR (MDRD) Af Amer 188, Est GFR (MDRD) Non-Af 156, BUN/Creatinine Ratio 43.9 H, Glucose 128 H, Calcium 7.8 L, Phosphorus 2.9, Magnesium 2.0, Total Bilirubin 0.40, AST 34, ALT 59, Alkaline Phosphatase 149 H, Total Protein 5.8 L, Albumin 1.6 L, Globulin 4.2, Albumin/Globulin Ratio 0.4 L, TSH 0.86 09/08/22 11:58: Hgb 9.0 L Micro: Microbiology 09/07/22 10:50 Sputum, Expectorated/Coughed Gram Stain - Final Radiology Impression Extremity Arterial Study 09/07/22 08:14 Interpretation Summary Right TAMIE 0.43, severe arterial insufficiency. Doppler/PVR waveforms and se gmental pressures reveal gqqcl-[id number]-pvfgefvw femoral, distal SFA/popliteal disease. Left TAMIE 0.33,severe arterial insufficiency. Doppler/PVR waveforms and segmental pressures reveal dkauj-dswux-[id number] femoral disease Ordering Physician: Robbie Patricia Referring Physician: Edmundo Hahn Performed By: Ruthann Vargas RVT Charges/Coding Visit Charges Inpatient E&M: 85501 Init Hosp L1
--- NOTE | 2022-09-08 14:54 | PCM.PN.HOSP ---
Reason for Visit Reason for Visit: Shortness of breath/cough/hypoxia Subjective Subjective Patient reports that he is feeling like he is breathing better today. No significant issues overnight. PVRs were done and show very poor arterial flow. Vascular surgery consult pending. Will likely need intervention. Respiratory status is improved and patient has been able to be weaned off continuous BiPAP to nasal cannula at times. Objective Data Objective Data Vital Signs: Vital Signs Temp Pulse Resp BP Pulse Ox O2 Del Method O2 Flow Rate 98 F 91 18 161/64 H 99 Bi-pap 5 09/08/22 08:29 09/08/22 08:29 09/08/22 08:29 09/08/22 08:29 09/08/22 08:29 09/08/22 08:29 09/08/22 07:32 FiO2 30 09/08/22 08:29 Oxygen Flow Rate (L/min) 5 Oxygen Delivery Method Bi-pap Weight: 75.7 kg Body Mass Index (BMI) 23.3 Intake & Output: Intake and Output for Last 24 Hours 09/06/22 09/07/22 09/08/22 23:59 23:59 23:59 Intake Total 1625 / 1625 855 / 855 Output Total 750 / 750 675 / 675 Balance 875 / 875 180 / 180 Medical Nutrition Assessment Dietitian: Malnutrition Criteria Met Start: 09/07/22 15:32 Freq: Status: Active Protocol: Document 09/07/22 15:32 RMA (Rec: 09/07/22 15:32 RMA [id number]) Nutrition Malnutrition Evidence of Malnutrition Exists Yes Malnutrition (moderate): Chronic Evidenced By Suboptimal Energy Intake ( Moderate),Weight Loss ( Moderate) Intake Problem Increased Nutrient Needs (specify) Etiology for protein related to increased demands for wound healing Signs/Symptoms as evidenced by multiple areas of skin breakdown/wounds Status Active Problem Clinical Problem Chronic Disease or Condition Related Malnutrition Etiology 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 Will add Alfonso BID for wound healing. Will add 240 ml ensure plus high protein BID w/ breakfast and dinner meals. Adjust ONS as needed to optimize PO and prevent wt loss. Lab / Micro Data Result Diagrams: 09/08/22 11:58 09/08/22 05:25 Labs: Laboratory Results - last 24 hr 09/07/22 22:25: Urine Color Yellow, Urine Clarity Clear, Urine pH 5.0, Ur Specific [place] 1.025, Urine Protein 30 H, Urine Glucose (UA) Normal, Urine Ketones 5 H, Urine Occult Blood 25 H, Urine Nitrite Negative, Urine Bilirubin Negative, Urine Urobilinogen Normal, Ur Leukocyte Esterase 100 H, Urine RBC 0 SEEN, Urine WBC 5-10 SEEN, Ur Squamous Epith Cells 0 SEEN, Urine Bacteria 1+, Urine Mucus 0 SEEN, Urine Yeast 1+ 09/08/22 05:25: WBC 12.5 H, RBC 2.60 L, Hgb 7.9 L, Hct 25.9 L, MCV 99.6 H, MCH 30.4, MCHC 30.5 L, RDW Std Deviation 58.6 H, RDW Coeff of Luis 16.5 H, Plt Count 556 H, MPV 10.8, Immature Gran % (Auto) 1.200 H, Neut % (Auto) 93.8 H, Lymph % (Auto) 2.1 L, [place] % (Auto) 2.7, Eos % (Auto) 0.0, Baso % (Auto) 0.2, Absolute Neuts (auto) 11.8 H, Absolute Lymphs (auto) 0.26 L, Nucleated RBC % 0, Differential Comment SCANNED 09/08/22 05:25: Sodium 144, Potassium 3.7, Chloride 114 H, Carbon Dioxide 24.0, Anion Gap 6, BUN 24 H, Creatinine 0.55 L, Estim Creat Clear Calc 68.66, Est GFR (MDRD) Af Amer 188, Est GFR (MDRD) Non-Af 156, BUN/Creatinine Ratio 43.9 H, Glucose 128 H, Calcium 7.8 L, Phosphorus 2.9, Magnesium 2.0, Total Bilirubin 0.40, AST 34, ALT 59, Alkaline Phosphatase 149 H, Total Protein 5.8 L, Albumin 1.6 L, Globulin 4.2, Albumin/Globulin Ratio 0.4 L, TSH 0.86 09/08/22 11:58: Hgb 9.0 L Micro: Microbiology 09/07/22 10:50 Sputum, Expectorated/Coughed Gram Stain - Final 09/07/22 04:10 Mucosa - Nasopharyngeal Respiratory Panel (PCR) - Final 09/07/22 04:00 Urine, Clean Catch Legionella Antigen - Final 09/07/22 04:00 Urine, Clean Catch Streptococcus pneumoniae Antigen (M - Final 09/07/22 01:05 Nasal Secretion SARS-CoV-2 & FLU Antigen (Rapid) - Final Radiography Diagnostic Testing: Radiology Impression Extremity Arterial Study 09/07/22 08:14 Interpretation Summary Right TAMIE 0.43, severe arterial insufficiency. Doppler/PVR waveforms and segmental pressures reveal [id number] femoral, distal SFA/popliteal disease. Left TAMIE 0.33,severe arterial insufficiency. Doppler/PVR waveforms and segmental pressures reveal [id number] femoral disease Ordering Physician: Robbie Patricia Referring Physician: Edmundo Hahn Performed By: Ruthann Vargas RVT Physical Exam Const alert, oriented x3 and no apparent distress Constitutional Narrative: Thin, chronically unwell appearing, white male who appears much older than stated age, sitting up in bed currently getting a breathing treatment, nursing and respiratory therapy at bedside as patient has just returned from imaging, nontoxic HEENT head/scalp atraumatic and moist oral mucous membranes HEENT Narrative: Dentition is poor, Mallampati is 2, no thrush Head and Scalp: normocephalic Resp normal respiratory effort, no retractions and no use of accessory muscles Resp Narrative: Diffusely diminished with scattered crackles and few scattered end expiratory wheeze, no signs of respiratory extremis, no tachypnea Auscultation: crackles and wheezes; Negative for rhonchi Cardio regular rate, regular rhythm, S1 normal heart sound, S2 normal heart sound, no murmurs, no rub, no gallops and no clicks GI normal to inspection, nondistended, normoactive bowel sounds, soft to palpation and non-tender Extremity Extremity Narrative: Markedly diminished pedal pulses bilaterally with delayed cap refill, no cyanosis or clubbing, no edema Skin No no rashes or lesions noted, No no wounds, skin turgor normal, no jaundice, no petechiae and no mottling Skin Narrative: Significant vascular appearing wounds on the dorsum of the right foot and lateral aspect of the right leg, small wound left heel Neuro oriented x3, moves all extremities, no focal motor deficits and no sensory deficits noted Neuro Narrative: Significant generalized weakness Speech: speech normal Psych Psych Narrative: Affect is somewhat flat and mood seems depressed Assessment & Plan Assessment/Plan (1) Acute respiratory failure with hypoxia: (2) Sepsis: (3) Peripheral vascular disease, unspecified: (4) Non-pressure chronic ulcer of other part of right foot with necrosis of muscle: (5) HCAP (healthcare-associated pneumonia): (6) Anemia: (7) Severe malnutrition: (8) Dysphagia: PLAN: Plan Sepsis secondary to pneumonia -Patient with primary Medicare therefore meets sepsis criteria with 2 SIRS criteria plus source -Patient did not require fluid boluses -Cultures remain pending -Lactate was normal at 1.8 -Continue broad-spectrum antibiotics -Cultures are negative will narrow to Unasyn to complete treatment for aspiration -Procalcitonin was normal Acute hypoxic respiratory failure secondary to pneumonia -Patient on room air at baseline -Patient was weaned off continuous BiPAP to 6 L nasal cannula this morning -As needed BiPAP -Chest x-ray shows infiltrates -COVID rapid/flu are negative -COVID PCR is negative -Respiratory viral panel is negative -Strep pneumo and Legionella antigens are negative -Sputum culture remains pending however Gram stain is suspicious for aspiration -Blood cultures are pending -Continue DuoNebs and as needed albuterol -Continue IV Solu-Medrol -Continue vancomycin and Zosyn with recent hospitalization -Speech therapy is following Dysphagia -Speech therapy is following -Passed for a regular diet with no straws and direct supervision for food and drink -[place] related to chronic debility Acute bilateral foot wounds -X-ray of the foot shows mild soft tissue swelling with no daylin bone destructive changes -Appear to be vascular in nature -PVRs show severe bilateral lower extremity vascular disease with right TAMIE at 0.43 and left TAMIE at 0.33 -Lower extremity CT performed and shows significant calcification however final read is pending -Podiatry following appreciate input -Vascular surgery consult is pending -ESR and CRP as expected are markedly elevated -Continue broad-spectrum antibiotics -Wound care is following Severe malnutrition -Continue supplements -Dietitian following Acute urinary retention -Patient with Soto catheter from facility -Was placed during last hospitalization -Continue Flomax -UA is not consistent with acute infection -If able to remove we will get PVRs -Recommend outpatient follow-up with urology Recent GI bleed secondary to duodenal ulcer -Patient anemic and hemoglobin dropped from 9.2-7.9 on this morning's lab repeat done this afternoon at noon showed hemoglobin of 9.0 -Did require 5 units transfusion during that hospitalization -EGD performed and showed duodenal ulcer that required clipping -Continue PPI 40 mg p.o. twice daily -Hemoglobin at discharge from [facility] was 8.6 -repeat CBC in a.m. History of stroke/bilateral carotid stenosis/HTN/HPL -Continue statin -Aspirin on hold due to recent GI bleed--> may need to discuss with GI here to reinitiate if vascular surgery needs to be pursued -Restart home blood pressure medicine -Beta-blockers with severe PVD Severe peripheral vascular disease -Aspirin/Plavix are on hold secondary to recent severe GI bleed -Vascular surgery consult is pending -right TAMIE at 0.43 and left TAMIE at 0.33 BPH -Continue Flomax Anxiety/depression -Continue sertraline Chronic transaminitis -Slightly improved from admission -If remains elevated consider further work-up History of alcohol abuse -Patient quit drinking following his stroke -Encourage continued sobriety Tobacco abuse -Encouraged cessation -Nicotine replacement available if desired DVT prophylaxis -SCDs -Chemoprophylaxis deferred due to recent GI bleeding CODE STATUS -DNR CCA no intubation Charges/Coding Visit Charges Inpatient E&M: 68320 Subs Hosp L2
[2022-09-08] MEDS: amLODIPine 10 MG Tablet PO (15:49)
[2022-09-08 16:54] LABS: Vancomycin, Trough Level 13.5 ug/mL (5.0-15.0)
--- NOTE | 2022-09-08 17:08 | PCM.RX.CS ---
Consult Pharmacy has been consulted to manage selected antiobiotic: Vancomycin Type of Consult: Follow-up Suspected Infection: Skin/Soft tissue, Pneumonia Prior Doses of Antibiotics Received/Current Regimen: current dose is vanc 1250mg IV q12h Labs: Sodium 144 mmol/L (136-145) 09/08/22 05:25 Potassium 3.7 mmol/L (3.5-5.1) 09/08/22 05:25 Chloride 114 mmol/L (98-107) H 09/08/22 05:25 Carbon Dioxide 24.0 mmol/L (21.0-32.0) 09/08/22 05:25 Anion Gap 6 (5-15) 09/08/22 05:25 BUN 24 mg/dL (7-18) H 09/08/22 05:25 Creatinine 0.55 mg/dL (0.70-1.30) L 09/08/22 05:25 Est GFR (MDRD) Af Amer 188 mL/min (>60) 09/08/22 05:25 Est GFR (MDRD) Non-Af 156 mL/min (>60) 09/08/22 05:25 BUN/Creatinine Ratio 43.9 RATIO (10-20) H 09/08/22 05:25 Glucose 128 mg/dL (74-106) H 09/08/22 05:25 Vancomycin Trough 13.5 ug/mL (5.0-15.0) 09/08/22 16:20 Microbiology: Microbiology 09/07/22 10:50 Sputum, Expectorated/Coughed Gram Stain - Final 09/07/22 04:10 Mucosa - Nasopharyngeal Respiratory Panel (PCR) - Final 09/07/22 04:00 Urine, Clean Catch Legionella Antigen - Final 09/07/22 04:00 Urine, Clean Catch Streptococcus pneumoniae Antigen (M - Final 09/07/22 01:05 Nasal Secretion SARS-CoV-2 & FLU Antigen (Rapid) - Final Weight used for dosin.7 kg Estimated Creatinine Clearance: 86ml/min Goal Trough: 15-20 mcg/mL Pharmacy Plan for Drug Dosing: The vanc trough drawn at 16:20 today (approx 12 hours after the previous dose) was 13.5. This is slightly below goal range but the patient is likely not at steady state yet and per the doctor's note, the patient's respiratory status has improved, so will keep same dose for now. Hesitant to increase the dose just yet due to the patient's age. Will recheck a trough after 3 more doses to make sure it is trending upward into goal range. Pharmacy Service will continue to monitor and adjust dosing as required. Follow-Up Labs: Trough Vancomycin Labs to be done on [date and time ordered]: 09/10/22 04:30
[2022-09-08] MEDS: Lisinopril 20 MG Tablet PO (21:29)
[2022-09-08] MEDS: Atorvastatin Calcium 40 MG Tablet PO (21:29)
[2022-09-08] MEDS: Menthol/Lanolin/Calamine/Znox 113 GM Tube 1 APPLIC TOPICAL (21:30)
[2022-09-08] MEDS: Nystatin Powder 15gm Bottle 1 APPLIC TOPICAL (21:30)
--- NOTE | 2022-09-08 23:15 | NURSING ---
Pt choking and aspirating on medications this evening. Medications given one at a time with applesause was unsuccessful. Pt was able to spit up 300ml in emesis bag. MD notified and decision was made to make pt NPO again and to have speech follow pt and give new recommendation. Protonix PO was made IV and lisinopril PO was replaced vasotec IV.
--- NOTE | 2022-09-08 23:34 | PCM.PN.BLA ---
Progress Note Nurse reports that patient was choking on meds and recommends npo. Patient made npo. Protonix PO switched to IV. Lisinopril po changed to vasotec IV. As needed labetalol ordered.
[2022-09-09] VITALS (13 sets, daily range): BP systolic 135–151; BP diastolic 56–67; PULSE 85–112; RESP 12–23; TEMP 36.7–37.1; O2SAT 92–98; BMI 23.5
[2022-09-09 05:21] LABS: Absolute Lymphocyte Count 0.55 X10^3/uL (0.83-4.51); Basophil# 0.01 X10^3/uL; Basophil% 0.1 % (0-1); Hemoglobin 7.5 g/dL (13.0-16.5); Lymphocyte # 0.55 X10^3/ul (0.83-4.51); Lymphocyte % 3.5 % (19-41); Mean Corp Hgb Conc 31.3 g/dL (32-36); Mean Corpuscular Hgb 30.7 pg (27.0-32.0); Mean Corpuscular Volume 98.4 fL (80-94); Mean Platelet Vol. 10.7 fl (6.2-12.0); Monocyte% 5.1 % (0-10); NRBC Flagged by Analyzer 0 % (0-5); Neutrophil # 14.03 X10^3/uL (2.7-7.7); Neutrophil % 90.1 % (47-70); POSITIVE DIFFERENTIAL YES; Platelet Count 554 K/mm3 (150-450); RBC Distribution Width CV 16.5 % (11.6-14.6); RBC Distribution Width SD 58.8 fl (35.1-43.9); Red Blood Count 2.44 M/mm3 (4.6-6.2); White Blood Count 15.6 K/mm3 (4.4-11.0)
[2022-09-09 05:27] LABS: Differential Indicated SCAN CRITERIA MET
[2022-09-09 05:37] LABS: Differential Comment SCANNED; Hypochromasia 1+
[2022-09-09 05:52] LABS: Anion Gap 5 (5-15); BUN 25 mg/dL (7-18); BUN/Creat Ratio 52.1 RATIO (10-20); Calcium,Total 8.1 mg/dL (8.5-10.1); Chloride 112 mmol/L (98-107); Creatinine, Serum 0.48 mg/dL (0.70-1.30); EST Glomerular Filtration Rate 181 mL/min (>60); Est Glom Filt Rate - Afr Amer 219 mL/min (>60); Estimated Creatinine Clearance 69.03 ml/min; Glucose 170 mg/dL (74-106); Potassium 3.6 mmol/L (3.5-5.1); Sodium Level 144 mmol/L (136-145)
[2022-09-09] MEDS: Enalaprilat 1.25 MG/ML Vial 0.625 MG IV ×3 (06:18→18:06)
[2022-09-09] MEDS: Nystatin Powder 15gm Bottle 1 APPLIC TOPICAL ×3 (06:19→21:54)
[2022-09-09] MEDS: Ipratropium/Albuterol Sulfate 3 ML AMPUL.NEB INHALATION ×3 (07:00→15:36)
[2022-09-09] MEDS: Menthol/Lanolin/Calamine/Znox 113 GM Tube 1 APPLIC TOPICAL ×2 (08:25→21:53)
[2022-09-09 08:46] LABS: Hemoglobin 7.7 g/dL (13.0-16.5)
--- NOTE | 2022-09-09 12:02 | CASEMGMT ---
Patient is from [facility]. SW attempted to call patient's sister who is his contact listed to see if the plan is to return. However, no one answered. LETTY sent updates to [facility] via [employer]. Crystal IBARRA
[2022-09-09] MEDS: 0.9% Saline Lock 10 ML Syringe IV (14:16)
--- NOTE | 2022-09-09 15:20 | PN.HOSP_ITS ---
Reason for Visit Reason for Visit: Shortness of breath/cough/hypoxia Subjective Subjective Patient developed some desaturation after taking in his pills last evening. Was made n.p.o. as much as possible and repeat speech eval is pending with modified barium swallow. Patient does admit he has had previous issues with swallowing in the past. Patient is unclear when his GI follow-up will be in the future. From a respiratory standpoint this morning he does appear to be doing better. No complaints at this time. Objective Data Objective Data Vital Signs: Vital Signs Temp Pulse Resp BP Pulse Ox O2 Del Method O2 Flow Rate 98.1 F 95 16 135/67 H 98 Nasal Cannula 4 09/09/22 15:05 09/09/22 15:05 09/09/22 15:05 09/09/22 15:05 09/09/22 15:05 09/09/22 15:05 09/09/22 15:05 FiO2 35 09/09/22 07:00 Oxygen Flow Rate (L/min) 4 Oxygen Delivery Method Nasal Cannula Weight: 76.5 kg Body Mass Index (BMI) 23.5 Intake & Output: Intake and Output for Last 24 Hours 09/07/22 09/08/22 09/09/22 23:59 23:59 23:59 Intake Total 1625 / 1625 1540 / 1540 585 / 585 Output Total 750 / 750 1875 / 1875 1175 / 1175 Balance 875 / 875 -335 / -335 -590 / -590 Medical Nutrition Assessment Dietitian: Malnutrition Criteria Met Start: 09/07/22 15:32 Freq: Status: Active Protocol: Document 09/07/22 15:32 RMA (Rec: 09/07/22 15:32 RMA [id number]) Nutrition Malnutrition Evidence of Malnutrition Exists Yes Malnutrition (moderate): Chronic Evidenced By Suboptimal Energy Intake ( Moderate),Weight Loss ( Moderate) Intake Problem Increased Nutrient Needs (specify) Etiology for protein related to increased demands for wound healing Signs/Symptoms as evidenced by multiple areas of skin breakdown/wounds Status Active Problem Clinical Problem Chronic Disease or Condition Related Malnutrition Etiology 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 Will add Alfonso BID for wound healing. Will add 240 ml ensure plus high protein BID w/ breakfast and dinner meals. Adjust ONS as needed to optimize PO and prevent wt loss. Lab / Micro Data Result Diagrams: 09/09/22 08:36 09/09/22 04:57 Labs: Laboratory Results - last 24 hr 09/08/22 16:20: Vancomycin Trough 13.5 09/09/22 04:57: WBC 15.6 H, RBC 2.44 L, Hgb 7.5 L, Hct 24.0 L, MCV 98.4 H, MCH 30.7, MCHC 31.3 L, RDW Std Deviation 58.8 H, RDW Coeff of Luis 16.5 H, Plt Count 554 H, MPV 10.7, Immature Gran % (Auto) 1.200 H, Neut % (Auto) 90.1 H, Lymph % (Auto) 3.5 L, [place] % (Auto) 5.1, Eos % (Auto) 0.0, Baso % (Auto) 0.1, Absolute Neuts (auto) 14.0 H, Absolute Lymphs (auto) 0.55 L, Nucleated RBC % 0, Differential Comment SCANNED, Hypochromasia 1+ 09/09/22 04:57: Sodium 144, Potassium 3.6, Chloride 112 H, Carbon Dioxide 27.0, Anion Gap 5, BUN 25 H, Creatinine 0.48 L, Estim Creat Clear Calc 69.03, Est GFR (MDRD) Af Amer 219, Est GFR (MDRD) Non-Af 181, BUN/Creatinine Ratio 52.1 H, Glucose 170 H, Calcium 8.1 L 09/09/22 08:36: Hgb 7.7 L Micro: Microbiology 09/07/22 04:00 Urine Catheter - Catheter Urine Culture - Final Presumptive C albicans 09/07/22 03:23 Blood Culture (Wb) - Anticubital Right Blood Culture - Preliminary No growth in 48 hours. 09/07/22 03:15 Blood Culture (Wb) - Right Wrist Blood Culture - Preliminary No growth in 48 hours. 09/07/22 10:50 Sputum, Expectorated/Coughed Gram Stain - Final 03/13/23 10:50 Sputum, Expectorated/Coughed Respiratory Culture - Preliminary Staphylococcus species Presumptive C albicans 09/07/22 04:10 Mucosa - Nasopharyngeal Respiratory Panel (PCR) - Final 09/07/22 04:00 Urine, Clean Catch Legionella Antigen - Final 09/07/22 04:00 Urine, Clean Catch Streptococcus pneumoniae Antigen (M - Final 09/07/22 01:05 Nasal Secretion SARS-CoV-2 & FLU Antigen (Rapid) - Final Physical Exam Const alert, oriented x3 and no apparent distress Constitutional Narrative: Thin, chronically ill appearing, white male who appears much older than stated age, sitting up in bed currently nasal cannula at 6 L by oxygen saturations 100%, nontoxic HEENT head/scalp atraumatic and moist oral mucous membranes HEENT Narrative: Dentition is poor, Mallampati is 1-2, no thrush Head and Scalp: normocephalic Resp normal respiratory effort, no retractions and no use of accessory muscles Resp Narrative: Diffusely diminished Auscultation: wheezes; Negative for crackles or rhonchi Cardio regular rate, regular rhythm, S1 normal heart sound, S2 normal heart sound, no murmurs, no rub, no gallops and no clicks GI normal to inspection, nondistended, normoactive bowel sounds, soft to palpation and non-tender Extremity Extremity Narrative: Markedly diminished pedal pulses bilaterally with delayed cap refill, no cyanosis or clubbing, no edema Neuro oriented x3, moves all extremities, no focal motor deficits and no sensory deficits noted Neuro Narrative: Significant generalized weakness Speech: speech normal Psych Psych Narrative: Patient more interactive today, eye contact is good, affect remains a bit flat Assessment & Plan Assessment/Plan (1) Acute respiratory failure with hypoxia: (2) Sepsis: (3) Peripheral vascular disease, unspecified: (4) Non-pressure chronic ulcer of other part of right foot with necrosis of muscle: (5) HCAP (healthcare-associated pneumonia): (6) Anemia: (7) Severe malnutrition: (8) Dysphagia: PLAN: Plan Sepsis secondary to staph/aspiration pneumonia -Patient with primary Medicare therefore meets sepsis criteria with 2 SIRS criteria plus source -Patient did not require fluid boluses -Sputum culture shows staph species with final identification and sensitivities pending -Blood cultures are negative -Lactate was normal at 1.8 -New current antibiotics and narrow once sensitivities revealed -Procalcitonin was normal Acute hypoxic respiratory failure secondary to staph/aspiration pneumonia -Patient on room air at baseline -Patient had been weaned to as low as 2 L this morning but after taking pills this morning desatted and is now on 6 L but oxygen saturations were 100% so therefore will wean as able -Continue n.p.o. -As needed BiPAP -Chest x-ray shows infiltrates -COVID rapid/flu are negative -COVID PCR is negative -Respiratory viral panel is negative -Strep pneumo and Legionella antigens are negative -Sputum culture shows staph species -Blood cultures negative -Continue DuoNebs and as needed albuterol -Continue IV Solu-Medrol but weaned to twice daily -Continue vancomycin and Zosyn with recent hospitalization until identification and sensitivities are finalized -Speech therapy is following Dysphagia -Speech therapy is following -More issues with concerns for aspiration overnight -N.p.o. -MBS today is pending -Crush essential meds in [facility] Acute bilateral foot wounds -X-ray of the foot shows mild soft tissue swelling with no daylin bone d estructive changes -Appear to be vascular in nature -PVRs show severe bilateral lower extremity vascular disease with right TAMIE at 0.43 and left TAMIE at 0.33 -Lower extremity CT performed and shows significant calcification however final read is pending -Podiatry following appreciate input -Vascular surgery was consulted and plan is for outpatient follow-up after more acute medical issues are remedied and less gangrene or worsening infection are identified -ESR and CRP as expected are markedly elevated -Continue broad-spectrum antibiotics -Wound care is following Severe malnutrition -Continue supplements as able with dysphagia -Dietitian following Acute urinary retention -Patient with Soto catheter from facility -Was placed during last hospitalization -Continue Flomax -UA is not consistent with acute infection -If able to remove we will get PVRs -Recommend outpatient follow-up with urology Recent GI bleed secondary to duodenal ulcer -Patient with anemia on presentation and hemoglobin has drifted down -Seems to be stable at this time in the mid 7 range -Check guaiac with recent GI bleed and if positive consult GI for repeat EGD given history -Did require 5 units transfusion during hospitalization at [place] -EGD performed and showed duodenal ulcer that required clipping -Continue PPI 40 mg but transition to IV given n.p.o. status -Hemoglobin at discharge from [facility] was 8.6 -repeat CBC in a.m. History of stroke/bilateral carotid stenosis/HTN/HPL -Continue statin -Aspirin on hold due to recent GI bleed--> may need to discuss with GI here to reinitiate if vascular surgery needs to be pursued -Restart home blood pressure medicine -Beta-blockers with severe PVD Severe peripheral vascular disease -Aspirin/Plavix are on hold secondary to recent severe GI bleed -Vascular surgery consult is pending -right TAMIE at 0.43 and left TAMIE at 0.33 BPH -Continue Flomax Anxiety/depression -Continue sertraline Chronic transaminitis -Slightly improved from admission -If remains elevated consider further work-up History of alcohol abuse -Patient quit drinking following his stroke -Encourage continued sobriety Tobacco abuse -Encouraged cessation -Nicotine replacement available if desired DVT prophylaxis -SCDs -Chemoprophylaxis deferred due to recent GI bleeding CODE STATUS -DNR CCA no intubation Charges/Coding Visit Charges Inpatient E&M: 14288 Subs Hosp L2
--- NOTE | 2022-09-09 15:41 | SP.MBSS_ITS ---
Modified Barium Swallow - Patient Information Study Date: 09/09/22 Study Time: 13:39 Direct Billable Minutes: 91 Total Minutes procedure & reportin Diagnosis: Acute Respiratory Failure with Hypoxia J96.01, Dysphagia R13.10 Referring Physician: Luanne Sullivan Reason for Referral: Objectively assess swallow function, assess risk for aspiration, and determine recommendations for least restrictive diet textures and compensatory strategies to improve safety of swallow. Medical History: Matt Villaseñor is a 72-year-old male with a history of EtOH abuse, Tobacco use, Carotid disease, HTN, HLD, Anxiety and Depression, Hx CVA, PVOD, COPD, GERD, BPH, and Anxiety and Depression. Patient presents to the [facility] ED on 09/07/22 with history of progressively worsening dyspnea as well cough with recent discharge from [facility] discharged on 09/05/22 admitted with noted per clinicians records found at his home unresponsive, encephalopathic and hypotensive secondary to hemorrhagic shock requiring transient intubation with GI bleed secondary to duodenal ulcer requiring 5 unit PRBC administration and several clipping complicated by urinary retention and bilateral foot wounds w/ transition to skilled facility on day prior with progressively worsening dyspnea since his discharge as well as cough and wheezing with no specific fevers or chills however worsening with hypoxia at skilled facility prompting ED evaluation. He does report that his cough has been moist/productive, but he has difficulty bringing anything up secondary to debility, weakness. Work-up in the ED included chest x-ray with bibasilar pulmonary opacities and effusion suspicious for edema or multifocal pneumonia. Patient referred for speech evaluation due to swallowing difficulty. Patient was put on thin liquids by small cup sips and Soft and Bite Size textures; however, patient made NPO overnight due to an event with medicine whole in applesauce, with overt s/s of aspiration. Patient recommended by Dr. Sullivan for MBSS. During speech treatment, patient desaturated, especially during self-administered trials of thin liquids. See speech treatment note on 09/09/22 for full report. Patient scheduled for afternoon MBSS to assess presence and risk for aspiration.? Current Diet Ordered: NPO Dentition: Natural Teeth, Decay, Missing Teeth Mental Status: Impaired Comment: Unable to follow cues for small sips. Respiratory Status: Oxygenating on 4L/M nasal cannula - Penetration-Aspiration Scale Penetration-Aspiration Scale: OBJECTIVE ASSESSMENT OF SWALLOW FUNCTION (QUANTITATIVE ? PER TRIAL): PENETRATION / ASPIRATION SCALE (MOORE): 1 = does not enter airway 2 = enters airway/above vocal folds/ejected 3 = enters airway/above vocal folds/not ejected 4 = enters airway/contacts vocal folds/ejected 5 = enters airway/contacts vocal folds/not ejected 6 = enters airway/below vocal folds/ejected 7 = enters airway/below vocal folds/not ejected despite effort 8 = enters airway/below vocal folds/no effort VIDEOFLOROSCOPIC SCALE SCORE (MOORE): Grade I = aspiration of material that has penetrated into the laryngeal vestibule, intact cough reflex Grade II = aspiration < 10 % of the bolus, intact cough reflex Grade III = aspiration of < 10 % of the bolus, reduced cough reflex or aspiration of > 10 % of the bolus, intact cough reflex Grade IV = aspiration of > 10 % of the bolus, reduced cough reflex - Penetration-Aspiration Scale Score Thin Liquid via teaspoon Result: 1= does not enter airway Comment: Patient belching. Thin Liquid via teaspoon Trial 2 Result: 1= does not enter airway Thin Liquid via small single sip from cup Result: 2= enter airway/above vocal folds/ejected Reeds Thick Liquid via large single sip from cup Result: 7= enters airways/below vocal folds/not ejected despite effort Pudding via teaspoon w/Esophageal Screen Result: 1= does not enter airway Comment: Patient coughing, but the laryngeal vestibule was clear. Thin Liquid via single sip from straw w/Esophageal Screen Result: 2= enter airway/above vocal folds/ejected 1/4 Cookie Result: 1= does not enter airway - Oral Phase Labial Seal: Interlabial escape, no progression to anterior lip Tongue Control During Bolus Hold: Posterior escape of greater than half of bolus Bolus Preparation/Mastication: Disorganized chewing/mashing with solid pieces of bolus unchewed Bolus Transport/Lingual Motion: Repetitive/disorganized tongue motion Oral Residue: Residue collection on oral structures - Pharyngeal Phase Initiation of Pharyngeal Swallow: Bolus head in pyriforms Soft Palate Elevation: No bolus between soft palate and pharyngeal wall Laryngeal Elevation: Partial superior movement thyroid cart/partial apprx aryt- epig petiole Anterior Hyoid Excursion: Partial anterior movement Epiglottic Movement: Partial inversion Laryngeal Vestibule Closure at Height of Swallow: Incomplete; narrow column of air/contrast in laryngeal vestibule Pharyngeal Stripping Wave: Present - complete Pharyngoesophageal Segment Opening: Parital distension and partial duration; parital obstruction of flow Tongue Base Retraction: Wide column of contrast between tongue base & post. pharyngeal wall Pharyngeal Residue: Collection of residue within or on pharyngeal structures - Esophageal Phase Esophageal Clearance: Esophageal retention w/ retrograde flow below pharyngoesophageal seg. - Treatment Strategies Effects of treatment strategies attemped:: Decreased Bolus Size = Effective - Diagnosis/Impression Diagnosis: Moderate oropharyngeal phase dysphagia (R13.12) Impression: The oral phase is primarily marked by... -Decreased bolus control with >1/2 of the bolus spilling posteriorly to the pyriforms prior to swallow onset observed -Disorganized chewing, and pieces left unchewed with cookie. Disorganized A-P transport, most notable with cookie trial. The pharyngeal phase is primarily marked by... -Severely decreased airway closure during the swallow, most notable with larger bolus sizes, due to partial anterior hyoid excursion, partial epiglottic inversion, and decreased laryngeal elevation. -Mildly decreased tongue base retraction, most notable with nectar/mildly thick liquids and thin liquids by straw, and mildly decreased UES opening/duration, resulting in collection of pharyngeal residues after the swallow. -Aspiration of nectar/mildly liquids by large cup sip. Laryngeal penetration of thin liquids by cup and straw above the vocal cords, which ejected post swallow. Increased bolus sizes, and decreased oropharyngeal clearance, place patient at increased risk for aspiration. The esophageal phase is primarily marked by... -Esophageal retention of pudding in mid esophagus with retrograde flow remaining well below UES. This esophageal retention had significantly improved clearance when provided thin liquid wash. - Recommendations Diet: Thin Liquids - Soft and Bite Size Compensatory Strategies: Small Bites, Small Sips, No Straws, Slow Rate, Feed only when alert, Alternate bites/solids and sips/liquids, Remain sitting upright for 30 minutes after PO intake Supervision: Total Feed Recommend Repeat Modified Barium Swallow: TBD Comment: Will recommend the patient for dysphagia therapy to address deficits in oropharyngeal swallow function. Will recommend the patient for oropharyngeal strengthening to improve lingual coordination, laryngeal elevation, hyoid excursion, and duration of UES opening. Will recommend oropharyngeal exercises including CTAR, Gabriella, Lingual Resistance, and Effortful Swallow. The patient would benefit from thorough education regarding diet recommendations and recommended compensatory strategies. Consider use of bolus control cup (provale 10cc) for patient to be able to feed himself - as mentioned above, pt unable to control bolus size despite max verbal cues during study. Need for Skilled Speech Therapy Services: Yes Education Completed: 1. Described result of evaluation., 2. Pt understands evaluation & agrees with goals and treatment plan., 7. Pt requires further education on strategies & risks. - Status Active ST Patient: Active - Contact Information [facility] Speech Therapy:: Cheryl Main M.A. [facility] Speech-Language Pathologist [facility] [address] [place] [address] [email or web address] [phone] 09/09/22 16:19
[2022-09-09] MEDS: Ascorbic Acid 500 MG Tablet PO (16:08)
[2022-09-09] MEDS: Juven (unflavored) Packet 1 PACKET PO (16:08)
--- NOTE | 2022-09-09 16:32 | PCM.PN.SRG ---
Subjective Subjective Patient was alert, making good eye contact, and responding to questions. He denies any pain in his lower extremities. Objective Data Objective Data Vital Signs: Vital Signs Temp Pulse Resp BP Pulse Ox O2 Del Method O2 Flow Rate 98.1 F 95 16 135/67 H 98 Nasal Cannula 4 09/09/22 15:05 09/09/22 15:05 09/09/22 15:05 09/09/22 15:05 09/09/22 15:05 09/09/22 15:05 09/09/22 15:05 FiO2 35 09/09/22 07:00 Oxygen Flow Rate (L/min) 4 Oxygen Delivery Method Nasal Cannula Weight: 168 lb 10.458 oz Body Mass Index (BMI) 23.5 Intake & Output: Intake and Output for Last 24 Hours 09/07/22 09/08/22 09/09/22 23:59 23:59 23:59 Intake Total 1625 / 1625 1540 / 1540 585 / 585 Output Total 750 / 750 1875 / 1875 1175 / 1175 Balance 875 / 875 -335 / -335 -590 / -590 Medical Nutrition Assessment Dietitian: Malnutrition Criteria Met Start: 09/07/22 15:32 Freq: Status: Active Protocol: Document 09/07/22 15:32 RMA (Rec: 09/07/22 15:32 RMA [id number]) Nutrition Malnutrition Evidence of Malnutrition Exists Yes Malnutrition (moderate): Chronic Evidenced By Suboptimal Energy Intake ( Moderate),Weight Loss ( Moderate) Intake Problem Increased Nutrient Needs (specify) Etiology for protein related to increased demands for wound healing Signs/Symptoms as evidenced by multiple areas of skin breakdown/wounds Status Active Problem Clinical Problem Chronic Disease or Condition Related Malnutrition Etiology 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 Will add Alfonso BID for wound healing. Will add 240 ml ensure plus high protein BID w/ breakfast and dinner meals. Adjust ONS as needed to optimize PO and prevent wt loss. Lab / Micro Data Result Diagrams: 09/09/22 08:36 09/09/22 04:57 Labs: Laboratory Results - last 24 hr 09/08/22 16:20: Vancomycin Trough 13.5 09/09/22 04:57: WBC 15.6 H, RBC 2.44 L, Hgb 7.5 L, Hct 24.0 L, MCV 98.4 H, MCH 30.7, MCHC 31.3 L, RDW Std Deviation 58.8 H, RDW Coeff of Luis 16.5 H, Plt Count 554 H, MPV 10.7, Immature Gran % (Auto) 1.200 H, Neut % (Auto) 90.1 H, Lymph % (Auto) 3.5 L, [place] % (Auto) 5.1, Eos % (Auto) 0.0, Baso % (Auto) 0.1, Absolute Neuts (auto) 14.0 H, Absolute Lymphs (auto) 0.55 L, Nucleated RBC % 0, Differential Comment SCANNED, Hypochromasia 1+ 09/09/22 04:57: Sodium 144, Potassium 3.6, Chloride 112 H, Carbon Dioxide 27.0, Anion Gap 5, BUN 25 H, Creatinine 0.48 L, Estim Creat Clear Calc 69.03, Est GFR (MDRD) Af Amer 219, Est GFR (MDRD) Non-Af 181, BUN/Creatinine Ratio 52.1 H, Glucose 170 H, Calcium 8.1 L 09/09/22 08:36: Hgb 7.7 L Micro: Microbiology 09/09/22 16:00 Stool Stool Occult Blood (VIMAL) - Final 09/07/22 04:00 Urine Catheter - Catheter Urine Culture - Final Presumptive C albicans 09/07/22 03:23 Blood Culture (Wb) - Anticubital Right Blood Culture - Preliminary No growth in 48 hours. 09/07/22 03:15 Blood Culture (Wb) - Right Wrist Blood Culture - Preliminary No growth in 48 hours. 09/07/22 10:50 Sputum, Expectorated/Coughed Gram Stain - Final 09/07/22 10:50 Sputum, Expectorated/Coughed Respiratory Culture - Preliminary Staphylococcus species Presumptive C albicans 09/07/22 04:10 Mucosa - Nasopharyngeal Respiratory Panel (PCR) - Final 09/07/22 04:00 Urine, Clean Catch Legionella Antigen - Final 09/07/22 04:00 Urine, Clean Catch Streptococcus pneumoniae Antigen (M - Final 09/07/22 01:05 Nasal Secretion SARS-CoV-2 & FLU Antigen (Rapid) - Final Physical Exam Const alert, oriented x3 and no apparent distress General Appearance: cooperative HEENT normocephalic, hearing grossly normal bilaterally and external ears normal Head and Scalp: normal to inspection, normocephalic and atraumatic Nose: external nose normal Eyes EOMs intact bilaterally General Eye: normal appearance of both eyes Neck General: normal visual inspection and trachea midline Resp normal respiratory effort Effort and Inspection: able to speak in complete sentences and symmetric chest movement; Negative for respiratory distress, stridor, retractions, uses accessory muscles or audible wheezes Cardio regular rate and regular rhythm Extremity Extremity Narrative: Bilateral feet/ankles wrapped in kerlix. No significant erythema, swelling, bruising, warmth, drainage. Peripheral Pulses: Yes brachial pulses present and radial pulses present Skin no rashes or lesions noted Wounds: wounds noted Wound Narrative: Dressings not removed, did review wound care nurse photos which shows multiple ulcerations to plantar surface of foot without necrotic tissue present and large ulceration to dorsal aspect of foot with necrotic appearance. No significant surrounding erythema noted. 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 On chart review, did notice that he does not currently follow routinely with cardiology. In anticipation of potential future outpatient intervention, will order stress test and can refer as necessary from there. Will continue to monitor. Charges/Coding Visit Charges Inpatient E&M: 34769 Subs Hosp L1
[2022-09-09] MEDS: Ferrous Sulfate 300 MG/5 ML UDC PO (18:07)
[2022-09-09] MEDS: Atorvastatin Calcium 80 MG Tablet PO (21:53)
[2022-09-09] MEDS: guaiFENesin 1,200 MG Tablet 1200 MG PO (21:53)
[2022-09-10] VITALS (8 sets, daily range): BP systolic 143–164; BP diastolic 59–77; PULSE 86–100; RESP 16–21; TEMP 36.5–36.8; O2SAT 94–98; BMI 23.4
[2022-09-10] MEDS: Enalaprilat 1.25 MG/ML Vial 0.625 MG IV ×3 (01:20→11:28)
[2022-09-10] MEDS: hydrALAZINE 20 MG/ML Vial 10 MG IV (04:07)
[2022-09-10 04:41] LABS: Absolute Lymphocyte Count 0.59 X10^3/uL (0.83-4.51); Absolute Neutrophil Count 14.2 X10^3/uL (2.0-7.7); Basophil# 0.01 X10^3/uL; Basophil% 0.1 % (0-1); Hematocrit 25.1 % (40-54); Hemoglobin 7.8 g/dL (13.0-16.5); Lymphocyte # 0.59 X10^3/ul (0.83-4.51); Lymphocyte % 3.7 % (19-41); Mean Corp Hgb Conc 31.1 g/dL (32-36); Mean Corpuscular Hgb 30.6 pg (27.0-32.0); Mean Corpuscular Volume 98.4 fL (80-94); Mean Platelet Vol. 10.3 fl (6.2-12.0); Monocyte# 0.76 X10^3/uL; Monocyte% 4.8 % (0-10); NRBC Flagged by Analyzer 0 % (0-5); Neutrophil # 14.19 X10^3/uL (2.7-7.7); Neutrophil % 90.1 % (47-70); POSITIVE DIFFERENTIAL YES; Platelet Count 563 K/mm3 (150-450); RBC Distribution Width CV 16.2 % (11.6-14.6); RBC Distribution Width SD 57.2 fl (35.1-43.9); Red Blood Count 2.55 M/mm3 (4.6-6.2); White Blood Count 15.8 K/mm3 (4.4-11.0)
[2022-09-10 04:44] LABS: Differential Indicated SCAN CRITERIA MET
[2022-09-10 05:02] LABS: Anion Gap 8 (5-15); BUN 23 mg/dL (7-18); Chloride 109 mmol/L (98-107); Creatinine, Serum 0.52 mg/dL (0.70-1.30); EST Glomerular Filtration Rate 164 mL/min (>60); Est Glom Filt Rate - Afr Amer 198 mL/min (>60); Estimated Creatinine Clearance 69.03 ml/min; Glucose 136 mg/dL (74-106); Potassium 3.6 mmol/L (3.5-5.1); Sodium Level 143 mmol/L (136-145)
[2022-09-10 05:05] LABS: Vancomycin, Trough Level 13.2 ug/mL (5.0-15.0)
[2022-09-10] MEDS: Nystatin Powder 15gm Bottle 1 APPLIC TOPICAL (05:05)
[2022-09-10 05:10] LABS: Differential Comment SCANNED
--- NOTE | 2022-09-10 05:27 | PCM.RX.CS ---
Consult Pharmacy has been consulted to manage selected antiobiotic: Vancomycin Type of Consult: Follow-up Suspected Infection: Pneumonia Prior Doses of Antibiotics Received/Current Regimen: Medications Vancomycin HCl 1,500 mg/ (Sodium Chloride) 530 mls @ 250 mls/hr IV Q12H RUPAL Vancomycin HCl 1,250 mg/ (Sodium Chloride) 275 mls @ 167 mls/hr IV Q12H RUPAL Stop: 09/10/22 07:00 Last Admin: 09/10/22 05:17 Dose: 167 mls/hr Labs: Sodium 143 mmol/L (136-145) 09/10/22 04:29 Potassium 3.6 mmol/L (3.5-5.1) 09/10/22 04:29 Chloride 109 mmol/L (98-107) H 09/10/22 04:29 Carbon Dioxide 26.0 mmol/L (21.0-32.0) 09/10/22 04:29 Anion Gap 8 (5-15) 09/10/22 04:29 BUN 23 mg/dL (7-18) H 09/10/22 04:29 Creatinine 0.52 mg/dL (0.70-1.30) L 09/10/22 04:29 Est GFR (MDRD) Af Amer 198 mL/min (>60) 09/10/22 04:29 Est GFR (MDRD) Non-Af 164 mL/min (>60) 09/10/22 04:29 BUN/Creatinine Ratio 44.0 RATIO (10-20) H 09/10/22 04:29 Glucose 136 mg/dL (74-106) H 09/10/22 04:29 Vancomycin Trough 13.2 ug/mL (5.0-15.0) 09/10/22 04:29 Microbiology: Microbiology 09/09/22 16:00 Stool Stool Occult Blood (VIMAL) - Final 09/07/22 04:00 Urine Catheter - Catheter Urine Culture - Final Presumptive C albicans 09/07/22 03:23 Blood Culture (Wb) - Anticubital Right Blood Culture - Preliminary No growth in 48 hours. 09/07/22 03:15 Blood Culture (Wb) - Right Wrist Blood Culture - Preliminary No growth in 48 hours. 09/07/22 10:50 Sputum, Expectorated/Coughed Gram Stain - Final 09/07/22 10:50 Sputum, Expectorated/Coughed Respiratory Culture - Preliminary Staphylococcus species Presumptive C albicans 09/07/22 04:10 Mucosa - Nasopharyngeal Respiratory Panel (PCR) - Final 09/07/22 04:00 Urine, Clean Catch Legionella Antigen - Final 09/07/22 04:00 Urine, Clean Catch Streptococcus pneumoniae Antigen (M - Final 09/07/22 01:05 Nasal Secretion SARS-CoV-2 & FLU Antigen (Rapid) - Final Weight used for dosin.3 kg Estimated Creatinine Clearance: 87 Goal Trough: 15-20 mcg/mL Pharmacy Plan for Drug Dosing: Vancomycin level of 13.2, drawn 12.3 hours post-dose, was 13.2. This was below the target range of 15-20. Will increase to 1500mg q12h, and re-draw a trough prior to 4th dose of new regimen. Pharmacy Service will continue to monitor and adjust dosing as required. Follow-Up Labs: Trough Vancomycin Labs to be done on [date and time ordered]: 09/12/22 @0438
--- NOTE | 2022-09-10 05:55 | EKG12_ITS ---
Test Reason : AM Blood Pressure : / mmHG Vent. Rate : 080 BPM Atrial Rate : 080 BPM P-R Int : 150 ms QRS Dur : 076 ms QT Int : 380 ms P-R-T Axes : 040 -49 -26 degrees QTc Int : 438 ms Sinus rhythm with Premature supraventricular complexes Left axis deviation Nonspecific ST abnormality Abnormal ECG When compared with ECG of 07-SEP-2022 00:58, Premature supraventricular complexes are now Present Confirmed by PAT SCHMID, CONOR ([id number]), editor school photograph TIFFANI WHITE ([id number]) on 09/11/2022 2:05:59 PM Referred By: Confirmed By:TOM STEWART MD
[2022-09-10] MEDS: Ipratropium/Albuterol Sulfate 3 ML AMPUL.NEB INHALATION ×3 (06:54→14:33)
[2022-09-10 07:55] LABS: Troponin-I HS 14 pg/mL (3.0-78.0)
--- NOTE | 2022-09-10 09:56 | CASEMGMT ---
LETTY spoke with patient's sister Eva. Eva said if patient needs to return to a long-term facility then he would go back to [facility]. Crystal Jolly [employer]SULTANT STACEY
[2022-09-10] MEDS: Tamsulosin HCl 0.4 MG Capsule PO (10:13)
[2022-09-10] MEDS: Ferrous Sulfate 300 MG/5 ML UDC PO ×2 (10:13→11:28)
[2022-09-10] MEDS: Ascorbic Acid 500 MG Tablet PO ×2 (10:14→11:28)
[2022-09-10] MEDS: Multivitamins,Ther W-Minerals Tablet 1 TABLET PO (10:14)
[2022-09-10] MEDS: amLODIPine 10 MG Tablet PO (10:14)
[2022-09-10] MEDS: Sertraline 100 MG Tablet PO (10:14)
[2022-09-10] MEDS: Juven (unflavored) Packet 1 PACKET PO (10:15)
[2022-09-10] MEDS: Menthol/Lanolin/Calamine/Znox 113 GM Tube 1 APPLIC TOPICAL (10:16)
[2022-09-10] MEDS: 0.9% Saline Lock 10 ML Syringe IV (11:28)
--- NOTE | 2022-09-10 12:15 | TREXTCAR_ITS ---
Diet Diet Order/Speech Therapy: 09/10/22 10:34 Diet: Regular - General Food consistency:: Soft & Bite Sized Liquid Consistency:: Regular/Thin Type of Dietary Supplement:: Ensure Plus High Protein Is pt able to select menu?: No Diet Comments: TOTAL FEED d/t impulsivity, SMALL SIPS, no straws, meds crushed in Routine Orders/Code Status Change [place] Catheter: monthly--> do not remove until seen by Urology O2 Liters per Minute: 2-4 O2 Frequency: Continuous Keep PO Greater than or Equal to (%): 88 Routine Lab Work: CBC (3 days), BMP (3 days) and - (mag level in 3 days) Code Status: DNRCC-A (no ETT) Wound(s) R foot: Wound Type: Vascular wound left dorsal foot: Wound Type: dry eschar Dressing Change: dry dressing left heel: Wound Type: Pressure Injury Dressing Change: well padded dressing right dorsal foot: Wound Type: dry eschar Dressing Change: dry dressing right lateral lower leg: Wound Type: cluster of dry eschar Dressing Change: dry dressing right heel: Wound Type: Pressure Injury Dressing Change: well padded dressing love. 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: Status: Acute Code(s): I70.239 - Atherosclerosis of [place] arteries of right leg with ulceration of unspecified site Allergies/Procedures Done in Hospital Allergies No Known Allergies Allergy (Verified 07/13/22 13:01) Procedures: EKG and - (Right lower extremity x-rays/CTA of the abdomen pelvis/TAMIE bilateral lower extremity/modified barium swallow) Type of Care/Length of Stay Estimated LOS: Convalescent Care Less Than 30 days Type of Care Needed: Skilled Rehab Potential: Fair Prognosis: Fair Additional Orders/Day of Discharge Additional Orders: Patient needs follow-up with gastroenterology at [facility] as previously recommended Day of Discharge: 09/10/22 Dietary and Speech Recommendations Dietitian Recommendations/Changes: Will liberalize diet to regular to promote improved intake at meals and prevent further weight loss. Will add Alfonso BID for wound healing. Will add 240 ml ensure plus high protein BID w/ breakfast and dinner meals. Adjust ONS as needed to optimize PO and prevent wt loss. Follow Up Care Please follow up with your Primary Care Physician in: 4 weeks Please Follow Up With: Shankar Solis MD When: 2 weeks Please Follow Up With: Hayden Zaman MD When: 1 week Discharge Plan Admission Admit Date/Time: 09/07/22 03:30 Attending Provider: Luanne Sullivan Primary Care Provider: Edmundo Hahn Consulting Providers: Jos Reese ; Laura Daly ; Shankar Solis Discharge Orders/Prescriptions Prescriptions: No Action atorvastatin 40 MG tablet 40 mg PO QHS Qty: 30 0RF amlodipine 10 MG tablet 10 mg PO DAILY Qty: 30 0RF sertraline 100 mg tablet 100 mg PO DAILY sulfamethoxazole-trimethoprim 800-160 mg Tablet 2 tab PO DAILY ascorbic acid (vitamin C) [Vitamin C] 500 mg Tablet 500 mg PO DAILY tamsulosin 0.4 mg Capsule 0.4 mg PO DAILY cephalexin 500 mg capsule 500 mg PO TID pantoprazole 40 mg tablet,delayed release (DR/EC) 40 mg PO BID Theragen-M Tablet 1 tab PO DAILY lisinopril 20 MG tablet 20 mg PO QHS Referrals / Follow Up: Dario Toscano MD [Non-Staff] - Edmundo Hahn MD [Primary Care Provider] -
--- NOTE | 2022-09-10 12:23 | PCM.DC.SUM ---
Providers Date of Admission: 09/07/22 Date of Discharge: 09/10/22 Primary Care Physician: Dr. 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: Status: Acute Code(s): I70.239 - Atherosclerosis of [place] arteries of right leg with ulceration of unspecified site Medications at Discharge Home Medications amlodipine 10 mg tablet 10 mg PO DAILY #30 tabs 08/19/20 atorvastatin 40 mg tablet 40 mg PO QHS #30 tabs 08/19/20 lisinopril 20 mg tablet 20 mg PO QHS 09/07/22 multivitamin,tx-minerals 1 tab PO DAILY 09/07/22 pantoprazole 40 mg tablet,delayed release 40 mg PO BID 09/07/22 sertraline 100 mg tablet 100 mg PO DAILY 09/07/22 tamsulosin 0.4 mg capsule 0.4 mg PO DAILY 09/07/22 albuterol sulfate 2.5 mg/3 mL (0.083 %) solution for nebulization 2.5 mg (3 mL) inhalation Q2H PRN PRN Dyspnea, wheezing #0 mL 09/10/22 arginine 7 gram-glutam 7 gram-CaHMB 1.5 ctnk-[id number]-ll-min oral pwd pkt (Alfonso (with collagen)) 1 packet PO BIDCM #0 ea 09/10/22 ascorbic acid (vitamin C) 500 mg tablet 500 mg PO TIDCM #0 tabs 09/10/22 bumetanide 0.5 mg tablet 0.5 mg PO BID #60 tabs 09/10/22 ferrous sulfate 300 mg (60 mg iron)/5 mL oral liquid 300 mg (5 mL) PO TIDCM #0 mL 09/10/22 guaifenesin 1,200 mg tablet, extended release 12 hr (Mucus Relief ER) 1,200 mg PO BID #0 tabs 09/10/22 ipratropium 0.5 mg-albuterol 3 mg (2.5 mg base)/3 mL nebulization soln 3 ml inhalation Q4HWA.RT #0 mL 09/10/22 levofloxacin 750 mg tablet 750 mg PO DAILY #7 tabs 09/10/22 Hospital Course Procedures EKG and - (Chest x-ray/right lower extremity foot x-rays/bilateral lower extremity arterial studies/CTA of the abdomen pelvis/modified barium swallow) Summary of Care Provided Minutes Spent on Discharge: 40 Hospital Course: Mr. Villaseñor is a 72-year-old male who was recently discharged from [facility] on 09/05/2022 presented to the emergency department [facility] on 09/07/2022 with worsening dyspnea as well as a cough.? He was recently admitted to [facility] for unresponsiveness and hemorrhagic shock that required transient intubation due to a GI bleed.? EGD was done and showed duodenal bulb ulcer.? He required 5 units of packed red blood cells and several clips placed during EGD.? His hospital course was complicated by urinary retention and bilateral foot wounds.? He was discharged to a [facility] facility the day prior to presentation but presented here with worsening dyspnea since discharge.? He complained of a concomitant cough and wheezing with no fever or chills. Work-up in the ED included T98.1, heart rate 112, BP 97/52, respiratory rate 21, 93% on 4 L nasal cannula, CBC with WBC 17.5, hemoglobin 9.7, MCV 99, platelet 595 with left shift and lymphopenia, CMP with chloride 110, BUN/creatinine 23/0.59, glucose of 111, calcium 7.9, AST/ALT 62/78, alk phos 176, chest x-ray with bibasilar pulmonary opacities and effusion suspicious for edema or multifocal pneumonia, rapid SARS COVID and influenza antigens negative.? With his leukocytosis he does have a significant left shift that showed a 95% neutrophilia.? Blood cultures, urine cultures, and sputum cultures were obtained. Blood cultures were unremarkable in sputum and urine only showed Ursula albicans. Respiratory viral panel was unremarkable. He was made to end on vancomycin and Zosyn during his hospital course. And we were able to transition him to Zosyn alone after cultures resulted with the intent to treat him for aspiration. During his hospital course he was noted to have some coughing and desaturation after eating so speech therapy evaluated the patient and recommended modified barium swallow. The patient did admit that previously he had difficulty with swallowing. Modified barium swallow did demonstrate moderate oropharyngeal phase dysphagia and a thin liquid with small bite-size solids was recommended. Speech therapy also recommended that he be a total feed due to impulsivity and have him take small sips with no straws being utilized and giving him his meds crushed in applesauce. His bilateral lower extremity wounds appear to be vascular in nature and lower extremity arterial studies were obtained. Left lower extremity TAMIE was 0.33 and right lower extremity TAMIE was 0.44. Lower extremity vascular CTA was performed and showed significant calcification and vascular surgery was consulted. There is intent on intervening on his lower extremity vascular disease in the near future however, the patient will need to be on dual antiplatelet therapy following any intervention and needs to be cleared from gastroenterology to be placed on dual antiplatelet therapy with his recent severe GI bleed. Vascular surgery is plan is to obtain an outpatient stress test and echocardiogram in preparation for intervention and have him see gastroenterology and when they can start anticoagulation proceed further with surgery as long as there is no worsening infection or gangrene that develops. We have recommended he follow with them in 2 weeks. He had a slight drop in hemoglobin from his discharge at [facility]. Hemoglobin at the time of discharge was 8.6 and the patient did drop into the mid 7 range while hospitalized. Hemoccult was negative and his hemoglobin did remain stable with his hemoglobin ranging between 7.5 and 7.9 in the 2 days prior to discharge. He was also treated with steroids during his hospital course as I do suspect he has a component of COPD. I would recommend outpatient pulmonary follow-up in the future and PFTs to be done when he is more clinically ready for that. Without any identifiable organism, we continue treatment for suspected aspiration pneumonia based on his swallow study to complete a total of 7 days and added on 3 days for treatment of his lower extremity wounds. His wounds do not at the time of discharge appear overtly infected. He will need ongoing wound care management for his lower extremity wounds. His Soto was maintained during his hospital course as he had urinary retention at his last hospitalization at [facility]. I have made a referral to Dr. Zaman and recommend him getting in there as soon as possible to try to remove the Soto. He will remain on Flomax for the time being. I would like to get this removed as soon as possible as it is a source of infection. He is to follow-up with GI from [facility] as directed and with vascular surgery (Dr. Solis) within the next 2 weeks. The patient is overall complicated with multiple chronic comorbidities and his readmission risk is high. I did discuss this with both the patient and his brother who is at the bedside at the time of discharge. They both voiced understanding. He will have ongoing physical therapy, Occupational Therapy, and speech therapy as well as wound care at [facility] after discharge. He was discharged to [facility] on 2 to 4 L supplemental oxygen on 09/10/2022. New medications include Bumex 0.5 mg twice daily, iron supplementation 3 times daily to be taken with vitamin C tablets, and Levaquin. He will need to follow-up CBC and BMP with magnesium level in 3 days. Discharge diagnoses: Sepsis secondary to aspiration pneumonia Aspiration pneumonia Acute hypoxic respiratory failure Oral pharyngeal dysphagia-moderate Acute bilateral vascular foot wounds Severe peripheral vascular disease Severe malnutrition Acute urinary retention-continue Soto until removed by urology Recent GI bleed secondary to duodenal bulb ulcer History of stroke Bilateral carotid artery stenosis Hypertension Hyperlipidemia BPH Anxiety Depression Chronic transaminitis History of alcohol abuse Tobacco abuse Physical Exam Const alert, oriented x3 and no apparent distress Constitutional Narrative: Thin, chronically ill appearing, white male who appears much older than stated age, sitting up in bed currently nasal cannula at 3 L, nontoxic, brother and nursing at the bedside General Appearance: cooperative, comfortable and well developed Orientation / Consciousness: awake, oriented to person, oriented to place and oriented to time Exam Limitations: no limitations HEENT normocephalic, head/scalp atraumatic and moist oral mucous membranes; Negative for hearing grossly normal bilaterally HEENT Narrative: Edentulous, Mallampati is 2, no thrush, moderate hearing loss Eyes PERRL and EOMs intact bilaterally; Negative for conjunctivae normal Eyes Narrative: Conjunctiva are pale bilaterally, no scleral icterus Neck no lymphadenopathy and supple Neck Narrative: Trachea midline, no thyroid enlargement Resp normal respiratory effort, no retractions, no use of accessory muscles and clear to auscultation bilaterally Resp Narrative: Diffusely diminished but no adventitious sounds at this point Auscultation: Negative for crackles, rhonchi or wheezes Cardio regular rate, regular rhythm, S1 normal heart sound, S2 normal heart sound, no murmurs, no rub, no gallops and no clicks GI normal to inspection, nondistended, normoactive bowel sounds, soft to palpation and non-tender Extremity Extremity Narrative: Markedly diminished pedal pulses bilaterally with delayed cap refill, no cyanosis or clubbing, no edema Skin No no rashes or lesions noted, No no wounds, skin turgor normal, no jaundice, no petechiae and no mottling Skin Narrative: Significant vascular appearing wounds on the dorsum of the right foot and lateral aspect of the right leg, small wound left heel Neuro oriented x3, CN's II-XII intact bilaterally, moves all extremities, no focal motor deficits and no sensory deficits noted Neuro Narrative: Significant generalized weakness Speech: speech normal Psych affect normal Psych Narrative: eye contact is good Medical Records Data Medical Nutrition Assessment Dietitian: Malnutrition Criteria Met Start: 09/07/22 15:32 Freq: Status: Active Protocol: Document 09/07/22 15:32 RMA (Rec: 09/07/22 15:32 RMA [id number]) Nutrition Malnutrition Evidence of Malnutrition Exists Yes Malnutrition (moderate): Chronic Evidenced By Suboptimal Energy Intake ( Moderate),Weight Loss ( Moderate) Intake Problem Increased Nutrient Needs (specify) Etiology for protein related to increased demands for wound healing Signs/Symptoms as evidenced by multiple areas of skin breakdown/wounds Status Active Problem Clinical Problem Chronic Disease or Condition Related Malnutrition Etiology 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 Will add Alfonso BID for wound healing. Will add 240 ml ensure plus high protein BID w/ breakfast and dinner meals. Adjust ONS as needed to optimize PO and prevent wt loss. Weight / BMI Weight Weight: 76.3 kg Body Mass Index (BMI) 23.4 ABG / Lab / Microbiology Data Result Diagrams: 09/10/22 04:29 09/10/22 04:29 Laboratory: Laboratory Results - last 24 hr 09/10/22 04:29: Vancomycin Trough 13.2 09/10/22 04:29: WBC 15.8 H, RBC 2.55 L, Hgb 7.8 L, Hct 25.1 L, MCV 98.4 H, MCH 30.6, MCHC 31.1 L, RDW Std Deviation 57.2 H, RDW Coeff of Luis 16.2 H, Plt Count 563 H, MPV 10.3, Immature Gran % (Auto) 1.300 H, Neut % (Auto) 90.1 H, Lymph % (Auto) 3.7 L, [place] % (Auto) 4.8, Eos % (Auto) 0.0, Baso % (Auto) 0.1, Absolute Neuts (auto) 14.2 H, Absolute Lymphs (auto) 0.59 L, Nucleated RBC % 0, Differential Comment SCANNED 09/10/22 04:29: Sodium 143, Potassium 3.6, Chloride 109 H, Carbon Dioxide 26.0, Anion Gap 8, BUN 23 H, Creatinine 0.52 L, Estim Creat Clear Calc 69.03, Est GFR (MDRD) Af Amer 198, Est GFR (MDRD) Non-Af 164, BUN/Creatinine Ratio 44.0 H, Glucose 136 H, Calcium 8.0 L 09/10/22 04:29: Troponin I High Sens 14 Microbiology: Microbiology 09/07/22 10:50 Sputum, Expectorated/Coughed Gram Stain - Final 09/07/22 10:50 Sputum, Expectorated/Coughed Respiratory Culture - Final Presumptive C albicans 09/09/22 16:00 Stool Stool Occult Blood (VIMAL) - Final 09/07/22 04:00 Urine Catheter - Catheter Urine Culture - Final Presumptive C albicans 09/07/22 03:23 Blood Culture (Wb) - Anticubital Right Blood Culture - Preliminary No growth in 48 hours. 09/07/22 03:15 Blood Culture (Wb) - Right Wrist Blood Culture - Preliminary No growth in 48 hours. 09/07/22 04:10 Mucosa - Nasopharyngeal Respiratory Panel (PCR) - Final 09/07/22 04:00 Urine, Clean Catch Legionella Antigen - Final 09/07/22 04:00 Urine, Clean Catch Streptococcus pneumoniae Antigen (M - Final 09/07/22 01:05 Nasal Secretion SARS-CoV-2 & FLU Antigen (Rapid) - Final D/C Instructions Please Follow Up With: Shankar Solis MD Meaningful Use Info Meaningful Use Diagnoses (Choose all that apply): None applicable Discharge Plan Admission Admit Date/Time: 09/07/22 03:30 Primary Reason for Your Visit: Shortness of breath/cough/hypoxia Attending Provider: Luanne Sullivan Primary Care Provider: Edmundo Hahn Consulting Providers: Jos Reese ; Laura Daly ; Shankar Solis Discharge Orders/Prescriptions Prescriptions: New ipratropium-albuterol 0.5 mg-3 mg(2.5 mg base)/3 mL Solution For Nebulization 3 ml inhalation Q4HWA.RT Qty: 0 0RF albuterol sulfate 2.5 mg /3 mL (0.083 %) Solution For Nebulization 2.5 mg inhalation Q2H PRN PRN (Reason: Dyspnea, wheezing) Qty: 0 0RF ascorbic acid (vitamin C) 500 mg Tablet 500 mg PO TIDCM Qty: 0 0RF ferrous sulfate 300 mg (60 mg iron)/5 mL Liquid 300 mg PO TIDCM Qty: 0 0RF Mucus Relief ER 1,200 mg Tablet Extended Release 12hr 1,200 mg PO BID Qty: 0 0RF Alfonso (with collagen) 7-7-1.5 gram Powder In Packet 1 packet PO BIDCM Qty: 0 0RF levofloxacin 750 mg tablet 750 mg PO DAILY Qty: 7 0RF bumetanide 0.5 mg tablet 0.5 mg PO BID Qty: 60 0RF Continued atorvastatin 40 MG tablet 40 mg PO QHS Qty: 30 0RF amlodipine 10 MG tablet 10 mg PO DAILY Qty: 30 0RF sertraline 100 mg tablet 100 mg PO DAILY tamsulosin 0.4 mg Capsule 0.4 mg PO DAILY pantoprazole 40 mg tablet,delayed release (DR/EC) 40 mg PO BID multivitamin,tx-minerals Tablet 1 tab PO DAILY lisinopril 20 MG tablet 20 mg PO QHS Discontinued sulfamethoxazole-trimethoprim 800-160 mg Tablet 2 tab PO DAILY ascorbic acid (vitamin C) [Vitamin C] 500 mg Tablet 500 mg PO DAILY cephalexin 500 mg capsule 500 mg PO TID Referrals / Follow Up: Edmundo Hahn MD [Primary Care Provider] - Within 1 Week Dario Toscano MD [Non-Staff] - Disposition Disposition (needs filled in before D/C Order can be placed): [facility] Facility Charges/Coding Visit Charges Inpatient E&M: 67956 SNF Disch >30 Min
[2022-09-10] MEDS: Furosemide 40 MG/4 ML Vial IV (12:40)
--- NOTE | 2022-09-10 12:55 | CASEMGMT ---
Patient is ready for discharge back to [facility] today. SW notified [facility]. Patient's brother was in the room so he is aware. Crystal IBARRA
--- NOTE | 2022-09-10 14:35 | CASEMGMT ---
SW called Physicians and arranged for patient to get picked up at 330 via cot. SW sent orders and vegetable picker time to [facility]. SW notified RN, motorcycle assembler, and patient's sister Eva. Plan: d/c back to [facility] under skilled level of care. Physicians will transport patient via cot. Crystal IBARRA
== END 2022-09-10 16:27 | disposition skilled nursing facility (03) | DRG 871 ==
LOC: ED 01:42 → PCU 03:37
PROVIDERS: Surgery Trauma Surgery; Admitting Provider Family Medicine; Emergency Provider Emergency Medicine; PCP Family Medicine; Visit Provider Internal Medicine
DX: A41.2 Sepsis due to unspecified staphylococcus (principal); J96.01 Acute respiratory failure with hypoxia; J69.0 Pneumonitis due to inhalation of food and vomit; E43 Unspecified severe protein-calorie malnutrition; I96 Gangrene, not elsewhere classified; L03.115 Cellulitis of right lower limb; I95.9 Hypotension, unspecified; Z99.81 Dependence on supplemental oxygen; L97.529 Non-pressure chronic ulcer of other part of left foot with unspecified severity; L97.513 Non-pressure chronic ulcer of other part of right foot with necrosis of muscle; I70.235 Atherosclerosis of native arteries of right leg with ulceration of other part of foot; I70.245 Atherosclerosis of native arteries of left leg with ulceration of other part of foot; F10.11 Alcohol abuse, in remission; E78.5 Hyperlipidemia, unspecified; I10 Essential (primary) hypertension; K21.9 Gastro-esophageal reflux disease without esophagitis; I25.10 Atherosclerotic heart disease of native coronary artery without angina pectoris; F41.9 Anxiety disorder, unspecified; F17.210 Nicotine dependence, cigarettes, uncomplicated; R13.12 Dysphagia, oropharyngeal phase; Y95 Nosocomial condition; Z66 Do not resuscitate; Z20.822 Contact with and (suspected) exposure to COVID-19; F32.A Depression, unspecified; R74.01 Elevation of levels of liver transaminase levels; N40.1 Benign prostatic hyperplasia with lower urinary tract symptoms; R33.8 Other retention of urine; Z79.899 Other long term (current) drug therapy; Z28.310 Unvaccinated for COVID-19; Z86.73 Personal history of transient ischemic attack (TIA), and cerebral infarction without residual deficits; Z68.23 Body mass index [BMI] 23.0-23.9, adult
CPT/HCPCS: 36415; 71045; 71046; 73630; 74230; 75635; 80048; 80053; 80202; 81001; 82274; 83605; 83735; 83880; 84100; 84145; 84443; 84484; 85018; 85025; 85610; 85652; 85730; 86140; 87040; 87070; 87077; 87086; 87088; 87205; 87428; 87449; 87633; 87635; 92526; 92610; 92611; 93005; 93923; 94002; 94003; 94640; 94668; 94762; 97162; 97166; 97802; 99285; 99406; J7030; J7040; J7050; Q9967; A4216; J1940; U0003; U0005

== ENCOUNTER → 2022-10-02 | Outpatient (CLI) | payer MEDICARE, OTHER, SELFPAY ==
--- NOTE | 2022-10-02 10:15 | CDU_ITS ---
Reason For Study: Hx of stroke and right vertebral artery occlusion Rt. Velocities/BP Lt. Velocities/BP Prox CCA 61.7/12.6 cm/sec. Prox CCA 57/9.7 cm/sec. Mid CCA 54.1/9.7 cm/sec. Mid CCA 57.9/12.6 cm/sec. Dist CCA 48.5/8.8 cm/sec. Dist CCA 57.9/10.7 cm/sec. Prox ICA 76.2/14.6 cm/sec. Prox ICA 84.6/18.8 cm/sec. Mid ICA 75.1/22.3 cm/sec. Mid ICA 94.9/17.6 cm/sec. Dist ICA 78.4/23.4 cm/sec. Dist ICA 96.1/24.9 cm/sec. Rt. ICA/CCA = 1.45. Lt. ICA/CCA = 1.66. Prox ECA 80.6/6.9 cm/sec. Prox ECA 113.8/4.2 cm/sec. Rt. Vert. 43.7/10.7 cm/sec. Lt. Vert. 43.7/7.8 cm/sec. Right Extracranial There is homogeneous, smooth atherosclerotic plaque noted in the right common carotid artery. There is heterogeneous, irregular atherosclerotic plaque noted in the right internal carotid artery. The atherosclerotic plaque causes acoustic shadowing. There is heterogeneous, irregular atherosclerotic plaque noted in the right external carotid artery. Antegrade flow is noted in the right vertebral artery. Left Extracranial There is intimal thickening but no significant atherosclerotic plaque noted in the left common carotid artery. There is heterogeneous, irregular atherosclerotic plaque noted in the left common carotid artery. There is heterogeneous, irregular atherosclerotic plaque noted in the left internal carotid artery. There is heterogeneous, irregular atherosclerotic plaque noted in the left external carotid artery. Antegrade flow is noted in the left vertebral artery. Procedure Carotid Duplex [id number]. This is a Carotid Duplex examination using B-mode, color flow and specral Doppler. Exam performed in department. VL/Carotid Duplex Ultrasound Interpretation Summary Mild (<50%) stenosis right extracranial internal carotid. Mild (<50%) stenosis left extracranial internal carotid. Patent and antegrade vertebrals bilaterally. Limited due to calcific shadowing, alternative imaging modality may be benefici al Ordering Physician: Khanh Saunders Referring Physician: Edmundo Hahn Performed By: Ruthann Vargas RVT
--- NOTE | 2022-10-02 10:15 | ECHOD_ITS ---
Reason For Study: PRE PROCEDURE Procedure This was a 2D Doppler, Color Flow transthoracic echocardiogram. The study was technically difficult. Exam performed in department. Left Ventricle Normal size and thickness. The left ventricular ejection fraction is 40 %. Moderate global left ventricular systolic dysfunction. Right Ventricle Normal RV size. Moderate global right ventricular systolic dysfunction. Atria Normal left atrium. Normal right atrium. Lipomatous hypertrophy of the atrial septum. Mitral Valve Mitral valve not well visualized. Tricuspid Valve The tricuspid valve is not well visualized. Aortic Valve The aortic valve is not well visualized. Pulmonic Valve The pulmonic valve is not well visualized. Great Vessels The aortic root is not well visualized. Pericardium/Pleural Anterior fat pad vs small organize effusion. Consider CT scan forfuther evaluation if clinically indicated. MMode/2D Measurements & Calculations LAV(MOD-sp4): 46.8 ml LVAd ap4: 23.2 cm2 SV(MOD-sp4): 31.8 ml LVLd ap4: 7.6 cm EDV(MOD-sp4): 60.8 ml EDV(sp4-el): 59.6 ml LVAs ap4: 14.4 cm2 LVLs ap4: 6.9 cm ESV(MOD-sp4): 29.1 ml ESV(sp4-el): 25.5 ml EF(MOD-sp4): 52.2 % EF(sp4-el): 57.1 % SV(sp4-el): 34.0 ml LA A4 area: 17.9 cm2 Doppler Measurements & Calculations MV E max margarette: 68.2 cm/sec Ao V2 max: 132.6 cm/sec Ao max P.2 mmHg Ao V2 mean: 85.7 cm/sec Ao mean P.4 mmHg Ao V2 VTI: 20.5 cm ECHO/Echo Complete Interpretation Summary The study was technically difficult. The left ventricular ejection fraction estimated to be approximately 40% ella r consider further evalaution with another modality such as MUGA scan or cardiac MRI. Moderate global left ventricular systolic dysfunction. Moderate global right ventricular systolic dysfunction. Lipomatous hypertrophy of the atrial septum. Anterior fat pad vs small organize effusion. Consider CT scan forfuther evaluat ion if clinically indicated. Ordering Physician: Shankar Solis Referring Physician: Shankar Solis Performed By: Allison Morris RCS
== END | disposition home or self-care (01) ==
PROVIDERS: PCP Family Medicine; Referring Provider Surgery Trauma Surgery; Visit Provider Surgery Trauma Surgery
DX: Z01.818 Encounter for other preprocedural examination (principal); I65.01 Occlusion and stenosis of right vertebral artery; Z86.73 Personal history of transient ischemic attack (TIA), and cerebral infarction without residual deficits
CPT/HCPCS: 93306; 93880

== ENCOUNTER 2022-10-07 02:53 | Inpatient (IN) | payer MEDICARE, OTHER, SELFPAY ==
[2022-10-07] VITALS (39 sets, daily range): BP systolic 89–126; BP diastolic 41–79; PULSE 55–122; RESP 11–27; TEMP 36.1–37.2; O2SAT 92–100; BMI 21.9; BMI 20.7
--- NOTE | 2022-10-07 03:12 | RAD_ITS ---
EXAM: XR CHEST, 1 VIEW CLINICAL INDICATION: weakness TECHNIQUE: Frontal view of the chest. This report was created using [employer] report generation technology. COMPARISON: 09/07/2022. FINDINGS: LUNGS AND PLEURAL SPACES: Unremarkable. No consolidation or edema. No pneumothorax. No effusion. HEART: Unremarkable. Cardiac silhouette not enlarged. MEDIASTINUM: Central airways and mediastinal contour are unremarkable. BONES/JOINTS: Unremarkable. SOFT TISSUES: Unremarkable. RAD/Chest 1 View (Portable) IMPRESSION: No acute cardiopulmonary abnormality. Electronically Signed: Brendon Rivera MD at 4:11 EDT ,
--- NOTE | 2022-10-07 03:18 | ED.VIS.GI ---
HPI HPI - GI History of Present Illness Chief Complaint: GI Bleed Narrative Narrative: 72-year-old male presenting with concern for possible GI bleed. Large black stool at some point at his [place] [facility]. He has no complaints. He is a very poor informant. Initially hypertensive and there was a report of him being hypotensive. Does not appear the patient is on any blood thinners. 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 Peripheral vascular disease, unspecified Peripheral vascular occlusive disease Presbycusis of both ears Severe malnutrition Stenosis of right vertebral artery Tobacco dependence due to cigarettes Home Medications amlodipine 10 mg tablet 10 mg PO DAILY #30 tabs 08/19/20 [Rx Last Taken Unknown] atorvastatin 40 mg tablet 40 mg PO QHS #30 tabs 08/19/20 [Rx Last Taken Unknown] lisinopril 20 mg tablet 20 mg PO QHS 09/07/22 [History Last Taken Unknown] pantoprazole 40 mg tablet,delayed release 40 mg PO BID 09/07/22 [History Last Taken Unknown] sertraline 100 mg tablet 100 mg PO DAILY 09/07/22 [History Last Taken Unknown] tamsulosin 0.4 mg capsule 0.4 mg PO DAILY 09/07/22 [History Last Taken Unknown] albuterol sulfate 2.5 mg/3 mL (0.083 %) solution for nebulization 2.5 mg (3 mL) inhalation Q2H PRN PRN Dyspnea, wheezing #0 mL 09/10/22 [Rx Last Taken Unknown] arginine 7 gram-glutam 7 gram-CaHMB 1.5 [id number] oral pwd pkt (Alfonso (with collagen)) 1 packet PO BIDCM #0 ea 09/10/22 [Rx Last Taken Unknown] ascorbic acid (vitamin C) 500 mg tablet 500 mg PO TIDCM #0 tabs 09/10/22 [Rx Last Taken Unknown] bumetanide 0.5 mg tablet 0.5 mg PO BID #60 tabs 09/10/22 [Rx Last Taken Unknown] ferrous sulfate 300 mg (60 mg iron)/5 mL oral liquid 300 mg (5 mL) PO TIDCM #0 mL 09/10/22 [Rx Last Taken Unknown] guaifenesin 1,200 mg tablet, extended release 12 hr (Mucus Relief ER) 1,200 mg PO BID #0 tabs 09/10/22 [Rx Last Taken Unknown] ipratropium 0.5 mg-albuterol 3 mg (2.5 mg base)/3 mL nebulization soln 3 ml inhalation Q4HWA.RT #0 mL 09/10/22 [Rx Last Taken Unknown] cholecalciferol (vitamin D3) 50 mcg (2,000 unit) capsule 50 mcg PO DAILY 09/22/22 [History Last Taken Unknown] fluconazole 100 mg tablet 100 mg PO DAILY 09/22/22 [History Last Taken Unknown] multivitamin,tx-minerals 1 tab PO DAILY 09/22/22 [History Last Taken Unknown] Allergy/AdvReac Type Severity Reaction Status Date / Time No Known Allergies Allergy Verified 10/07/22 03:00 Family History Father Dementia Mother Dementia Social History household members: none Smoking Status: Current every day smoker tobacco type: cigarettes Tobacco: How many years used: 40 Electronic Cigarette Use: with nicotine second hand exposure: Yes alcohol intake: former year quit: 2020 substance use type: does not use caffeine: Yes (4 cups daily) Type: coffee seatbelt use: sometimes EXAM Physical Exam Const Vital Signs: 10/07/22 02:54 10/07/22 03:08 10/07/22 03:57 Temperature 98.3 F Temperature Source Temporal Pulse Rate 118 H Respiratory Rate 25 H Blood Pressure Blood Pressure Mean Blood Pressure Source Blood Pressure Position Blood Pressure Location Pulse Ox 98 Oxygen Delivery Method Nasal Cannula Room Air Room Air Oxygen Flow Rate (L/min) 2 10/07/22 04:07 10/07/22 04:24 10/07/22 05:19 Temperature 98.2 F Temperature Source Temporal Pulse Rate 84 95 Respiratory Rate 15 16 Blood Pressure 108/53 L 105/47 L Blood Pressure Mean 71 66 Blood Pressure Source Monitor Blood Pressure Position Semi-Fowlers Blood Pressure Location Left Arm Pulse Ox 95 97 Oxygen Delivery Method Nasal Cannula Nasal Cannula Oxygen Flow Rate (L/min) 10/07/22 05:23 10/07/22 05:34 10/07/22 06:23 Temperature 98.1 F 98.2 F 98.5 F Temperature Source Temporal Temporal Temporal Pulse Rate 80 84 Respiratory Rate 16 15 Blood Pressure 100/46 L 95/45 L Blood Pressure Mean 64 61 Blood Pressure Source Monitor Monitor Blood Pressure Position Semi-Fowlers Blood Pressure Location Right Arm Pulse Ox 97 98 95 Oxygen Delivery Method Nasal Cannula Nasal Cannula Nasal Cannula Oxygen Flow Rate (L/min) 2 10/07/22 06:23 10/07/22 06:47 10/07/22 07:03 Temperature Temperature Source Pulse Rate 99 55 L Respiratory Rate 18 11 L Blood Pressure 104/58 L 121/69 H Blood Pressure Mean 73 86 Blood Pressure Source Blood Pressure Position Blood Pressure Location Pulse Ox 96 99 Oxygen Delivery Method Nasal Cannula Nasal Cannula Oxygen Flow Rate (L/min) 2 10/07/22 07:21 10/07/22 06:34 Temperature 97.2 F L 97.2 F L Temperature Source Temporal Temporal Pulse Rate 95 Respiratory Rate 15 Blood Pressure 105/51 L Blood Pressure Mean 69 Blood Pressure Source Monitor Blood Pressure Position Semi-Fowlers Blood Pressure Location Pulse Ox 97 Oxygen Delivery Method Room Air Oxygen Flow Rate (L/min) Positive unkempt General Appearance ED: unkempt and NAD HEENT Reports moist mucous membranes normocephalic and atraumatic Eyes General Eye ED: Negative for pale conjunctiva Cardio Rate: tachycardic Rhythm: abnormal rhythm irregularly irregular GI non-tender Back/Spine no CVA tenderness Neuro CN's II-XII intact bilaterally Sensorium / Orientation: alert Psych Appearance: unkempt Skin Skin Narrative: Skin breakdown on the buttocks. There is a quarter sized left-sided stage III decubitus ulcer which is dressed. No drainage. MDM MDM MDM Narrative Medical decision making narrative: Patient presenting with black stool. There was concern this could possibly be Hemoccult positive. It was reported that he was hypotensive but he has been hypertensive here initially. He is awake and alert. He has no complaints. He is a little tachycardic. Patient does have reported history of pressure ulcer. We rolled the patient and he has a lot of skin breakdown in the perineal area and buttocks. There is a quarter sized left-sided stage III pressure ulcer that is packed and dressed. There is black stool surrounding the rectum. Blood pressure is 98/48 after rechecking. Patient given a liter normal saline. Patient started on Protonix drip. Hemoccult stool was obtained. Patient has SIRS criteria therefore sepsis work-up was obtained. CBC shows a leukocytosis of 28.6. Does appear the patient was recently here on antibiotics for pneumonia. Differential at this point includes GI bleed, diverticulitis, dehydration, electrolyte abnormalities. Patient also tachycardic and irregular looking on the monitor I do have concern for A-fib. He is not complaining any chest pain or shortness of breath. He is afebrile. Repeat evaluation at 420. Patient's blood pressure is now 108/53. PT was slightly prolonged at 17.5, PTT slightly prolonged 37.8, INR 1.5. I did obtain an EKG which on my interpretation shows sinus tachycardia with varying P wave sizes and this is consistent with MAT. No evidence of ischemic change. Chest x-ray on my interpretation shows no acute cardiopulmonary process and the radiologist services agrees. I was able to speak with the nurse about the patient's presentation the patient's nurse tells me that when they called in they noted that he had only had 1 large black bowel movement but that he had also vomited and he had been diaphoretic. They did again report low blood pressures. Patient is Hemoccult positive and I am concerned for GI bleed causing his low blood pressure even though currently his hemoglobin appears to be at baseline at 8.9. I do believe he likely has active bleeding and will need a blood transfusion so I did type and cross for 2 units. After the patient was transfused 1 L his blood pressure did respond. I will give another 500 cc of saline. Lactic acid returned at 2.3. The patient's potassium was down to 2.1 so I added on a magnesium level which is 0.9. Currently I am transfusing magnesium and then I will replete potassium. The patient's high-sensitivity troponin came back at 166. This may be due to demand due to low blood pressure and low hemoglobin. I did not give the patient any aspirin and I am currently holding off on any heparin. We will repeat the troponin. Urinalysis could be the source of infection with 500 leukocyte esterase, greater than 100 WBCs, 3+ bacteria, however this is a indwelling Soto catheter. Culture was sent. I obtained a CT of the abdomen pelvis to look for source of infection given his elevated white blood cell count and this does not show anything but gastroenteritis. There is a fecal impaction that is actually improved. Reviewing his history from his [place] [facility] paperwork it does show that he has a history of GI bleed and duodenal ulcer. Discussed with Dr. Milton who is amenable to keeping the patient here. Discussed with the hospitalist and given his NSTEMI which is likely type II, hypotension which is improved, lactic acidosis, leukocytosis we will keep him in the ICU. The hospitalist wanted to give vancomycin and Zosyn for broad-spectrum coverage. Patient's blood pressure now up to 121/69 and heart rate 55. He is looking improved. Impression: 1. Leukocytosis 2. Hypotension?resolved 3. Upper GI bleed 4. Acute blood loss anemia 5. Hypomagnesemia 6. Hypokalemia Lab Data Labs: Laboratory Results - last 24 hr 10/07/22 10/07/22 10/07/22 03:15 03:15 03:15 WBC 28.6 H RBC 3.03 L Hgb 8.9 L Hct 27.8 L MCV 91.7 MCH 29.4 MCHC 32.0 RDW Std Deviation 51.5 H RDW Coeff of Luis 15.4 H Plt Count 517 H MPV 10.3 Immature Gran % (Auto) 1.300 H Neut % (Auto) 94.9 H Lymph % (Auto) 1.5 L Tate % (Auto) 2.0 Eos % (Auto) 0.1 Baso % (Auto) 0.2 Absolute Neuts (auto) 27.1 H Absolute Lymphs (auto) 0.43 L Nucleated RBC % 0 Differential Comment SCANNED PT 17.5 H INR 1.5 APTT 37.8 H Sodium 134 L Potassium 2.1 L* Chloride 98 Carbon Dioxide 26.0 Anion Gap 10 BUN 30 H Creatinine 0.90 Estim Creat Clear Calc 72.62 Est GFR (MDRD) Af Amer 106 Est GFR (MDRD) Non-Af 88 BUN/Creatinine Ratio 33.4 H Glucose 140 H Lactic Acid Calcium 7.1 L Magnesium Total Bilirubin 0.30 AST 19 ALT 16 Alkaline Phosphatase 114 Troponin I High Sens 166 H* Total Protein 5.7 L Albumin 1.6 L Globulin 4.1 Albumin/Globulin Ratio 0.4 L Urine Color Urine Clarity Urine pH Ur Specific [place] Urine Protein Urine Glucose (UA) Urine Ketones Urine Occult Blood Urine Nitrite Urine Bilirubin Urine Urobilinogen Ur Leukocyte Esterase Urine RBC Urine WBC Ur Squamous Epith Cells Urine Bacteria Hyaline Casts Urine Mucus Urine Yeast Blood Type Antibody Screen Crossmatch 10/07/22 10/07/22 10/07/22 03:15 03:15 03:15 WBC RBC Hgb Hct MCV MCH MCHC RDW Std Deviation RDW Coeff of Luis Plt Count MPV Immature Gran % (Auto) Neut % (Auto) Lymph % (Auto) Tate % (Auto) Eos % (Auto) Baso % (Auto) Absolute Neuts (auto) Absolute Lymphs (auto) Nucleated RBC % Differential Comment PT INR APTT Sodium Potassium Chloride Carbon Dioxide Anion Gap BUN Creatinine Estim Creat Clear Calc Est GFR (MDRD) Af Amer Est GFR (MDRD) Non-Af BUN/Creatinine Ratio Glucose Lactic Acid Calcium Magnesium 0.9 L* Total Bilirubin AST ALT Alkaline Phosphatase Troponin I High Sens Total Protein Albumin Globulin Albumin/Globulin Ratio Urine Color Urine Clarity Urine pH Ur Specific [place] Urine Protein Urine Glucose (UA) Urine Ketones Urine Occult Blood Urine Nitrite Urine Bilirubin Urine Urobilinogen Ur Leukocyte Esterase Urine RBC Urine WBC Ur Squamous Epith Cells Urine Bacteria Hyaline Casts Urine Mucus Urine Yeast Blood Type O POSITIVE Antibody Screen NEGATIVE Crossmatch See Detail 10/07/22 10/07/22 10/07/22 03:27 03:50 06:14 WBC RBC Hgb Hct MCV MCH MCHC RDW Std Deviation RDW Coeff of Luis Plt Count MPV Immature Gran % (Auto) Neut % (Auto) Lymph % (Auto) Tate % (Auto) Eos % (Auto) Baso % (Auto) Absolute Neuts (auto) Absolute Lymphs (auto) Nucleated RBC % Differential Comment PT INR APTT Sodium Potassium Chloride Carbon Dioxide Anion Gap BUN Creatinine Estim Creat Clear Calc Est GFR (MDRD) Af Amer Est GFR (MDRD) Non-Af BUN/Creatinine Ratio Glucose Lactic Acid 2.3 H* Calcium Magnesium Total Bilirubin AST ALT Alkaline Phosphatase Troponin I High Sens 261 H* Total Protein Albumin Globulin Albumin/Globulin Ratio Urine Color Yellow Urine Clarity Cloudy Urine pH 5.0 Ur Specific [place] 1.015 Urine Protein 100 H Urine Glucose (UA) Normal Urine Ketones Negative Urine Occult Blood 25 H Urine Nitrite Negative Urine Bilirubin 3 H Urine Urobilinogen 4 H Ur Leukocyte Esterase 500 H Urine RBC 10-25 SEEN Urine WBC >100 SEEN Ur Squamous Epith Cells 0-5 SEEN Urine Bacteria 3+ Hyaline Casts 10-25 SEEN Urine Mucus 0 SEEN Urine Yeast 2+ Blood Type Antibody Screen Crossmatch Radiography Diagnostic Testing: Clinical Impression(s) from Imaging Studies Chest X-Ray 10/07/22 03:12 IMPRESSION: No acute cardiopulmonary abnormality. Electronically Signed: Brendon Rivera MD at 4:11 EDT , Abdomen/Pelvis CT 10/07/22 04:19 IMPRESSION: 1. Multiple dilated small bowel loops up to 2.4 cm in diameter scattered throughout the abdomen without a clear-cut point of transition. Findings may be due to ileus or gastroenteritis. Obstruction less likely. 2. Soto catheter within the bladder and mild wall thickening of the urinary bladder unchanged. The wall thickening may be due to muscular hypertrophy or cystitis. 3. Moderate rectal fecal impaction slightly decreased compared with the previous exam. 4. Moderate atelectasis right lung base. Subsegmental atelectasis left lung base. 5. Coronary artery disease. 6. Scattered calcifications are again noted adjacent to the second portion the duodenum and the head of the pancreas unchanged. 7. Small cyst in the prostate unchanged. 8. Small renal cysts bilaterally. No follow-up imaging necessary. Electronically Signed: Brendon Rivera MD at 5:13 EDT , Foot X-Ray 10/07/22 05:11 IMPRESSION: 1. Marked osteopenia of the heads of the fifth metatarsals bilaterally with loss of the fine cortical line. This may just represent severe osteopenia. Osteomyelitis cannot be completely excluded. No overlying ulceration identified. 2. Severe degenerative changes bilateral first metatarsal phalangeal joints with marked joint space narrowing and marked proliferative bone around the joint. Electronically Signed: Brendon Rivera MD at 6:40 EDT , Discharge Plan Triage Chief Complaint: GI Bleed ED Provider: Ash Carrion Dx/Rx/DC Orders Prescriptions: No Action fluconazole 100 mg tablet 100 mg PO DAILY Rx Instructions: x 7 days cholecalciferol (vitamin D3) 50 mcg (2,000 unit) capsule 50 mcg PO DAILY multivitamin,tx-minerals Tablet 1 tab PO DAILY atorvastatin 40 MG tablet 40 mg PO QHS Qty: 30 0RF amlodipine 10 MG tablet 10 mg PO DAILY Qty: 30 0RF sertraline 100 mg tablet 100 mg PO DAILY tamsulosin 0.4 mg Capsule 0.4 mg PO DAILY pantoprazole 40 mg tablet,delayed release (DR/EC) 40 mg PO BID lisinopril 20 MG tablet 20 mg PO QHS ipratropium-albuterol 0.5 mg-3 mg(2.5 mg base)/3 mL Solution For Nebulization 3 ml inhalation Q4HWA.RT Qty: 0 0RF albuterol sulfate 2.5 mg /3 mL (0.083 %) Solution For Nebulization 2.5 mg inhalation Q2H PRN PRN (Reason: Dyspnea, wheezing) Qty: 0 0RF ascorbic acid (vitamin C) 500 mg Tablet 500 mg PO TIDCM Qty: 0 0RF ferrous sulfate 300 mg (60 mg iron)/5 mL Liquid 300 mg PO TIDCM Qty: 0 0RF Mucus Relief ER 1,200 mg Tablet Extended Release 12hr 1,200 mg PO BID Qty: 0 0RF Alfonso (with collagen) 7-7-1.5 gram Powder In Packet 1 packet PO BIDCM Qty: 0 0RF bumetanide 0.5 mg tablet 0.5 mg PO BID Qty: 60 0RF Primary Care Provider: Edmundo Hahn Referrals: Edmundo Hahn MD [Primary Care Provider] -
[2022-10-07 03:27] LABS: Absolute Lymphocyte Count 0.43 X10^3/uL (0.83-4.51); Absolute Neutrophil Count 27.1 X10^3/uL (2.0-7.7); Basophil# 0.06 X10^3/uL; Basophil% 0.2 % (0-1); Eosinophil# 0.04 X10^3/uL; Eosinophils% 0.1 % (0-5); Hematocrit 27.8 % (40-54); Hemoglobin 8.9 g/dL (13.0-16.5); Lymphocyte # 0.43 X10^3/ul (0.83-4.51); Lymphocyte % 1.5 % (19-41); Mean Corpuscular Hgb 29.4 pg (27.0-32.0); Mean Corpuscular Volume 91.7 fL (80-94); Mean Platelet Vol. 10.3 fl (6.2-12.0); Monocyte# 0.56 X10^3/uL; NRBC Flagged by Analyzer 0 % (0-5); Neutrophil # 27.09 X10^3/uL (2.7-7.7); Neutrophil % 94.9 % (47-70); POSITIVE DIFFERENTIAL YES; Platelet Count 517 K/mm3 (150-450); RBC Distribution Width CV 15.4 % (11.6-14.6); RBC Distribution Width SD 51.5 fl (35.1-43.9); Red Blood Count 3.03 M/mm3 (4.6-6.2); White Blood Count 28.6 K/mm3 (4.4-11.0)
[2022-10-07] MEDS: 0.9% Normal Saline 1,000 ML 999 ML IV (03:30)
[2022-10-07 03:34] LABS: International Normalized Ratio 1.5; Prothrombin Time (Protime)PT. 17.5 SECONDS (11.7-14.9)
[2022-10-07 03:35] LABS: Differential Indicated SCAN CRITERIA MET; Partial Thromboplast Time 37.8 Seconds (24.1-36.2)
[2022-10-07 03:58] LABS: Mucous, Urine 0 SEEN /hpf (<or=2+)
[2022-10-07 04:00] LABS: Color, Urine Yellow (Yellow); Glucose, Dipstick Normal (Normal); Ketone-Dipstick Negative (Negative); Leukocyte Esterase-Dipstick 500 /ul (Negative); Nitrite-Dipstick Negative (Negative); Occult Blood-Urine 25 /ul (Negative); Protein-Dipstick 100 mg/dl (Negative); Specific Gravity, Urine 1.015 (1.002-1.030); Urine Clarity Cloudy (Clear); Urine Urobilinogen 4 mg/dl (Normal)
[2022-10-07 04:02] LABS: Differential Comment SCANNED
[2022-10-07 04:09] LABS: Urine Bilirubin Dipstick 3 mg/dL (Negative)
[2022-10-07 04:11] LABS: ALB/GLOB Ratio 0.4 RATIO (0.9-2.4); AST(SGOT) 19 U/L (15-37); Alanine Aminotransfer ALT/SGPT 16 U/L (16-61); Albumin, Serum 1.6 g/dL (3.2-5.0); Alkaline Phosphatase 114 U/L (45-117); Anion Gap 10 (5-15); BUN 30 mg/dL (7-18); BUN/Creat Ratio 33.4 RATIO (10-20); Calcium,Total 7.1 mg/dL (8.5-10.1); Chloride 98 mmol/L (98-107); EST Glomerular Filtration Rate 88 mL/min (>60); Est Glom Filt Rate - Afr Amer 106 mL/min (>60); Estimated Creatinine Clearance 72.62 ml/min; Globulin 4.1 g/dL (2.2-4.2); Glucose 140 mg/dL (74-106); Potassium 2.1 mmol/L (3.5-5.1); Protein, Total 5.7 g/dL (6.4-8.2); Sodium Level 134 mmol/L (136-145); Troponin-I HS 166 pg/mL (3.0-78.0)
[2022-10-07 04:11] LABS: Lactic Acid 2.3 mmol/L (0.4-1.9)
[2022-10-07 04:14] LABS: Bacteria 3+ /hpf (None Seen); Hyaline Cast 10-25 SEEN /lpf (0-5); Red Blood Cells-Urine 10-25 SEEN /hpf (0-5); Squamous Epithelial Cells - UA 0-5 SEEN /hpf (0-5); White Blood Cells >100 SEEN /hpf (0-5); Yeast-Urine 2+ /hpf (None Seen)
[2022-10-07 04:19] LABS: Magnesium 0.9 mg/dL (1.6-2.6)
--- NOTE | 2022-10-07 04:19 | CT_ITS ---
EXAM: CT ABDOMEN AND PELVIS WITH INTRAVENOUS CONTRAST CLINICAL INDICATION: ab pain TECHNIQUE: Helically acquired images were obtained of the abdomen and pelvis with intravenous contrast. This CT exam was performed using one or more of the following dose reduction techniques: automated exposure control, adjustment of the mA and/or kV according to patient size, and/or use of iterative reconstruction technique. This report was created using [employer] report generation technology. CONTRAST: 100 cc of Isovue-370 IV. RADIATION DOSE: CTDIvol = 14.47 mGy, DLP = 756.14 mGy-cm. COMPARISON: CT angiogram of the abdomen and pelvis 09/08/2022. FINDINGS: LOWER THORAX: Moderate atelectasis right lung base. Subsegmental atelectasis left lung base. Coronary artery calcifications. No cardiomegaly. No significant pericardial effusion. ABDOMEN: LIVER: Unremarkable. Homogeneous. No focal mass. GALLBLADDER AND BILE DUCTS: Unremarkable. No calcified gallstones. No gallbladder distention or wall edema. No intra- or extrahepatic biliary ductal dilation. PANCREAS: See below. SPLEEN: Unremarkable. Normal size without focal cystic or solid mass. ADRENALS: Unremarkable. No nodules. KIDNEYS AND URETERS: Small renal cysts bilaterally. Normal renal size and position. No hydronephrosis. STOMACH AND BOWEL: Multiple dilated small bowel loops up to 2.4 cm in diameter scattered throughout the abdomen without a clear-cut point of transition. Moderate rectal fecal impaction slightly decreased compared with the previous exam. Scattered calcifications are again noted adjacent to the second portion the duodenum and the head of the pancreas unchanged. No focal inflammatory change. PELVIS: APPENDIX: Normal appendix. BLADDER: Soto catheter within the bladder and mild wall thickening of the urinary bladder unchanged. REPRODUCTIVE: Small cyst in the prostate unchanged. ABDOMEN and PELVIS: INTRAPERITONEAL SPACE: Unremarkable. No ascites or other fluid collection. No free air. BONES/JOINTS: Unremarkable. No suspicious lytic or blastic abnormality. SOFT TISSUES: Unremarkable. No discrete abdominal or pelvic wall hernia. VASCULATURE: See above. LYMPH NODES: Unremarkable. No enlarged lymph nodes. CT/Abdomen/Pelvis W IV Cont ONLY IMPRESSION: 1. Multiple dilated small bowel loops up to 2.4 cm in diameter scattered throughout the abdomen without a clear-cut point of transition. Findings may be due to ileus or gastroenteritis. Obstruction less likely. 2. Soto catheter within the bladder and mild wall thickening of the urinary bladder unchanged. The wall thickening may be due to muscular hypertrophy or cystitis. 3. Moderate rectal fecal impaction slightly decreased compared with the previous exam. 4. Moderate atelectasis right lung base. Subsegmental atelectasis left lung base. 5. Coronary artery disease. 6. Scattered calcifications are again noted adjacent to the second portion the duodenum and the head of the pancreas unchanged. 7. Small cyst in the prostate unchanged. 8. Small renal cysts bilaterally. No follow-up imaging necessary. Electronically Signed: Brendon Rivera MD at 5:13 EDT ,
[2022-10-07] MEDS: Magnesium Sulfate 4gm/100mL 4 GM/100 ML IV.SOLN. IV (05:02)
--- NOTE | 2022-10-07 05:11 | RAD_ITS ---
EXAM: XR BILATERAL FEET COMPLETE, 3 OR MORE VIEWS CLINICAL INDICATION: wound TECHNIQUE: Frontal, lateral and oblique views of the bilateral feet. This report was created using [employer] report generation technology. COMPARISON: None. FINDINGS: BONES/JOINTS: Marked osteopenia of the heads of the fifth metatarsals bilaterally with loss of the fine cortical line. Severe degenerative changes bilateral first metatarsal phalangeal joints with marked joint space narrowing and marked proliferative bone around the joint. No acute fracture. No subluxation. Normal alignment. SOFT TISSUES: Unremarkable. No soft tissue swelling or gas. No radiopaque foreign body. RAD/Foot min 3 Views IMPRESSION: 1. Marked osteopenia of the heads of the fifth metatarsals bilaterally with loss of the fine cortical line. This may just represent severe osteopenia. Osteomyelitis cannot be completely excluded. No overlying ulceration identified. 2. Severe degenerative changes bilateral first metatarsal phalangeal joints with marked joint space narrowing and marked proliferative bone around the joint. Electronically Signed: Brendon Rivera MD at 6:40 EDT ,
[2022-10-07 06:41] LABS: Troponin-I HS 261 pg/mL (3.0-78.0)
--- NOTE | 2022-10-07 07:26 | ED.RN ---
after this rn took report from nightshift nurse, upon checking the medications infusing and there infusion rate, this rn discovered that instead of the mag infusion of 4hrs, it was almost complete which means it infused of 2hrs. provider aware. nightsksft had already left, unable to discuss with her.
--- NOTE | 2022-10-07 07:28 | NURSING ---
DR COTE FOR DR PATINO
[2022-10-07 07:34] LABS: Reflex Lactate? Y
--- NOTE | 2022-10-07 07:47 | NURSING ---
ICU COTE GI BLEED, NSTEMI, HYPOTENSION, SIRS
--- NOTE | 2022-10-07 07:53 | NURSING ---
ICU 2
--- NOTE | 2022-10-07 08:20 | HP.PCM.HOS_ITS ---
HPI - General General Date of Admission: 10/07/22 Date of Service: 10/07/22 Chief Complaint: Hypotension, black stools HPI Narrative NIKOLAS ADAMS, is a 72 M w/ hx of PVD w/ LE ulcerations, HTN, CVA 08/01/20 d/c'd from [facility] 09/05 after admit w/ hemorrhagic shock 2/2 duodenal ulcer req 5uprbc and clips with subsequent d/c and admit to [facility] 09/07 for dyspnea. Dx w/ sepsis secondary to aspiration PNA and completed a course of abx, cultures were negative at the time. Additionally d/t LE ulcers he had vascular w/u and surgery was recommended on outpt basis given recent severe GIB. He was discharged to SNF for rehab and represented to [facility] 10/07/22 after he was found to have a giant black stool and was diaphoretic and hypotensive at intermediate facility. He was sent to [facility]. Blood pressure in ED variable, verbal report that SBP was in the 80s on arrival and he has had some intermittent low-grade tachycardia he was given sepsis protocol fluids though not diagnosis sepsis do not know source however white blood cell count was 28.6 in the ED and did have left shift with lactic acid of 2.3 and troponin 166 that trended to 261. Given blood pressure was still marginal after fluids there is concern that blood loss may be contributing and that CBC had not yet reflected that so he was given 2 units packed red blood cells. Hospitalist consulted for admission to ICU. Evaluated patient at bedside and he was resting comfortably. Woke up and denied having any complaints but poor historian and had perez negative ROS. 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 Peripheral vascular disease, unspecified Peripheral vascular occlusive disease Presbycusis of both ears Severe malnutrition Stenosis of right vertebral artery Tobacco dependence due to cigarettes Home Medications amlodipine 10 mg tablet 10 mg PO DAILY #30 tabs 08/19/20 [Rx Last Taken Unknown] atorvastatin 40 mg tablet 40 mg PO QHS #30 tabs 08/19/20 [Rx Last Taken Unknown] lisinopril 20 mg tablet 20 mg PO QHS 09/07/22 [History Last Taken Unknown] pantoprazole 40 mg tablet,delayed release 40 mg PO BID 09/07/22 [History Last Taken Unknown] sertraline 100 mg tablet 100 mg PO DAILY 09/07/22 [History Last Taken Unknown] tamsulosin 0.4 mg capsule 0.4 mg PO DAILY 09/07/22 [History Last Taken Unknown] albuterol sulfate 2.5 mg/3 mL (0.083 %) solution for nebulization 2.5 mg (3 mL) inhalation Q2H PRN PRN Dyspnea, wheezing #0 mL 09/10/22 [Rx Last Taken Unknown] arginine 7 gram-glutam 7 gram-CaHMB 1.5 [id number]-min oral pwd pkt (Alfonso (with collagen)) 1 packet PO BIDCM #0 ea 09/10/22 [Rx Last Taken Unknown] ascorbic acid (vitamin C) 500 mg tablet 500 mg PO TIDCM #0 tabs 09/10/22 [Rx Last Taken Unknown] bumetanide 0.5 mg tablet 0.5 mg PO BID #60 tabs 09/10/22 [Rx Last Taken Unknown] ferrous sulfate 300 mg (60 mg iron)/5 mL oral liquid 300 mg (5 mL) PO TIDCM #0 mL 09/10/22 [Rx Last Taken Unknown] guaifenesin 1,200 mg tablet, extended release 12 hr (Mucus Relief ER) 1,200 mg PO BID #0 tabs 09/10/22 [Rx Last Taken Unknown] ipratropium 0.5 mg-albuterol 3 mg (2.5 mg base)/3 mL nebulization soln 3 ml inhalation Q4HWA.RT #0 mL 09/10/22 [Rx Last Taken Unknown] cholecalciferol (vitamin D3) 50 mcg (2,000 unit) capsule 50 mcg PO DAILY 09/22/22 [History Last Taken Unknown] fluconazole 100 mg tablet 100 mg PO DAILY 09/22/22 [History Last Taken Unknown] multivitamin,tx-minerals 1 tab PO DAILY 09/22/22 [History Last Taken Unknown] Allergy/AdvReac Type Severity Reaction Status Date / Time No Known Allergies Allergy Verified 10/07/22 03:00 Family History Father Dementia Mother Dementia Social History household members: none Smoking Status: Current every day smoker tobacco type: cigarettes Tobacco: How many years used: 40 Electronic Cigarette Use: with nicotine second hand exposure: Yes alcohol intake: former year quit: 2020 substance use type: does not use caffeine: Yes (4 cups daily) Type: coffee seatbelt use: sometimes ROS ROS Narrative General: Denies fever/chills HENT: Denies headache, denies stuffy nose, denies sore throat EYES: Denies changes in vision Resp: Denies cough, denies shortness of breath Cardiac: Denies chest pain GI: Denies abdominal pain, denies nausea/vomiting : has estrada Extremity: Denies swelling MSK: Denies weakness Neuro: Denies any numbness/tingling Heme: Denies any bleeding or bruising Skin: Denies rashes but does have noted foot wounds Psychiatric: No complaints voiced Vital Signs Vital Signs Vital Signs: 10/07/22 02:54 10/07/22 03:08 10/07/22 03:57 Temperature 98.3 F Temperature Source Temporal Pulse Rate 118 H Respiratory Rate 25 H Blood Pressure Blood Pressure Mean Blood Pressure Source Blood Pressure Position Blood Pressure Location Pulse Ox 98 Oxygen Delivery Method Nasal Cannula Room Air Room Air Oxygen Flow Rate (L/min) 2 10/07/22 04:07 10/07/22 04:24 10/07/22 05:19 Temperature 98.2 F Temperature Source Temporal Pulse Rate 84 95 Respiratory Rate 15 16 Blood Pressure 108/53 L 105/47 L Blood Pressure Mean 71 66 Blood Pressure Source Monitor Blood Pressure Position Semi-Fowlers Blood Pressure Location Left Arm Pulse Ox 95 97 Oxygen Delivery Method Nasal Cannula Nasal Cannula Oxygen Flow Rate (L/min) 10/07/22 05:23 10/07/22 05:34 10/07/22 06:23 Temperature 98.1 F 98.2 F 98.5 F Temperature Source Temporal Temporal Temporal Pulse Rate 80 84 Respiratory Rate 16 15 Blood Pressure 100/46 L 95/45 L Blood Pressure Mean 64 61 Blood Pressure Source Monitor Monitor Blood Pressure Position Semi-Fowlers Blood Pressure Location Right Arm Pulse Ox 97 98 95 Oxygen Delivery Method Nasal Cannula Nasal Cannula Nasal Cannula Oxygen Flow Rate (L/min) 2 10/07/22 06:23 10/07/22 06:47 10/07/22 07:03 Temperature Temperature Source Pulse Rate 99 55 L Respiratory Rate 18 11 L Blood Pressure 104/58 L 121/69 H Blood Pressure Mean 73 86 Blood Pressure Source Blood Pressure Position Blood Pressure Location Pulse Ox 96 99 Oxygen Delivery Method Nasal Cannula Nasal Cannula Oxygen Flow Rate (L/min) 2 10/07/22 07:21 10/07/22 07:34 10/07/22 07:41 Temperature 97.2 F L 97.2 F L 97 F L Temperature Source Temporal Temporal Temporal Pulse Rate 89 Respiratory Rate 27 H 16 Blood Pressure 101/55 L 100/41 L Blood Pressure Mean 70 60 Blood Pressure Source Monitor Monitor Blood Pressure Position Blood Pressure Location Pulse Ox 100 96 Oxygen Delivery Method Nasal Cannula Nasal Cannula Oxygen Flow Rate (L/min) 2 2 10/07/22 07:57 Temperature 97 F L Temperature Source Temporal Pulse Rate 92 Respiratory Rate 15 Blood Pressure 100/41 L Blood Pressure Mean 60 Blood Pressure Source Blood Pressure Position Blood Pressure Location Pulse Ox 98 Oxygen Delivery Method Nasal Cannula Oxygen Flow Rate (L/min) 2 Weight Weight: 71.3 kg Body Mass Index (BMI) 21.9 Physical Exam Narrative General: Asleep but will wake up and answer questions, quickly falls back asleep HEENT: Atraumatic, normocephalic Eyes: Anicteric, normal conjunctiva, extraocular movements grossly intact Neck: Supple Respiratory: No wheezes, some very faint fine inspiratory crackles at the bases bilaterally, normal respiratory effort Cardiovascular: Regular rate and rhythm GI: Soft, nontender, nondistended Extremities: No edema Musculoskeletal: Moving all extremities Neuro: No overt focal neurological deficits Skin: Bilateral lower extremities wrapped, multiple foot wounds with eschar overlying Psych: Attempts to be cooperative Results Lab / Micro Data Result Diagrams: 10/07/22 03:15 10/07/22 03:15 Labs: Laboratory Results - last 24 hr 10/07/22 03:15: WBC 28.6 H, RBC 3.03 L, Hgb 8.9 L, Hct 27.8 L, MCV 91.7, MCH 29.4, MCHC 32.0, RDW Std Deviation 51.5 H, RDW Coeff of Luis 15.4 H, Plt Count 517 H, MPV 10.3, Immature Gran % (Auto) 1.300 H, Neut % (Auto) 94.9 H, Lymph % (Auto) 1.5 L, [place] % (Auto) 2.0, Eos % (Auto) 0.1, Baso % (Auto) 0.2, Absolute Neuts (auto) 27.1 H, Absolute Lymphs (auto) 0.43 L, Nucleated RBC % 0, Differential Comment SCANNED 10/07/22 03:15: PT 17.5 H, INR 1.5, APTT 37.8 H 10/07/22 03:15: Sodium 134 L, Potassium 2.1 L*, Chloride 98, Carbon Dioxide 26.0, Anion Gap 10, BUN 30 H, Creatinine 0.90, Estim Creat Clear Calc 72.62, Est GFR (MDRD) Af Amer 106, Est GFR (MDRD) Non-Af 88, BUN/Creatinine Ratio 33.4 H, Glucose 140 H, Calcium 7.1 L, Total Bilirubin 0.30, AST 19, ALT 16, Alkaline Phosphatase 114, Troponin I High Sens 166 H*, Total Protein 5.7 L, Albumin 1.6 L , Globulin 4.1, Albumin/Globulin Ratio 0.4 L 10/07/22 03:15: Blood Type O POSITIVE, Antibody Screen NEGATIVE 10/07/22 03:15: Magnesium 0.9 L* 10/07/22 03:15: Crossmatch See Detail 10/07/22 03:27: Lactic Acid 2.3 H* 10/07/22 03:50: Urine Color Yellow, Urine Clarity Cloudy, Urine pH 5.0, Ur Specific [place] 1.015, Urine Protein 100 H, Urine Glucose (UA) Normal, Urine Ketones Negative, Urine Occult Blood 25 H, Urine Nitrite Negative, Urine Bilirubin 3 H, Urine Urobilinogen 4 H, Ur Leukocyte Esterase 500 H, Urine RBC 10-25 SEEN, Urine WBC >100 SEEN, Ur Squamous Epith Cells 0-5 SEEN, Urine Bacteria 3+, Hyaline Casts 10-25 SEEN, Urine Mucus 0 SEEN, Urine Yeast 2+ 10/07/22 06:14: Troponin I High Sens 261 H* Micro: Microbiology 10/07/22 03:15 Stool Stool Occult Blood (VIMAL) - Final Occult Blood Positive Radiology Impression Chest X-Ray 04/12/23 03:12 IMPRESSION: No acute cardiopulmonary abnormality. Electronically Signed: Brendon Rivera MD at 4:11 EDT , Abdomen/Pelvis CT 10/07/22 04:19 IMPRESSION: 1. Multiple dilated small bowel loops up to 2.4 cm in diameter scattered throughout the abdomen without a clear-cut point of transition. Findings may be due to ileus or gastroenteritis. Obstruction less likely. 2. Estrada catheter within the bladder and mild wall thickening of the urinary bladder unchanged. The wall thickening may be due to muscular hypertrophy or cystitis. 3. Moderate rectal fecal impaction slightly decreased compared with the previous exam. 4. Moderate atelectasis right lung base. Subsegmental atelectasis left lung base. 5. Coronary artery disease. 6. Scattered calcifications are again noted adjacent to the second portion the duodenum and the head of the pancreas unchanged. 7. Small cyst in the prostate unchanged. 8. Small renal cysts bilaterally. No follow-up imaging necessary. Electronically Signed: Brendon Rivera MD at 5:13 EDT , Foot X-Ray 10/07/22 05:11 IMPRESSION: 1. Marked osteopenia of the heads of the fifth metatarsals bilaterally with loss of the fine cortical line. This may just represent severe osteopenia. Osteomyelitis cannot be completely excluded. No overlying ulceration identified. 2. Severe degenerative changes bilateral first metatarsal phalangeal joints with marked joint space narrowing and marked proliferative bone around the joint. Electronically Signed: Brendon Rivera MD at 6:40 EDT , Assessment & Plan Assessment/Plan (1) GI bleed: PLAN: Plan #Suspect sepsis -unclear source, has had Estrada and UA did show bacteria, leuk esterase, white blood cells but unclear if colonized or when it was last changed, will need to explore this further. -CT abdomen pelvis with multiple dilated small bowel loops up to 2.4 cm in diameter scattered throughout the abdomen without a clear-cut transition point which per report may be due to ileus or gastroenteritis. Mild wall thickening in the urinary bladder unchanged and may be due to muscular hypertrophy or cystitis. Additionally moderate rectal fecal impaction which is slightly decreased compared to previous, moderate atelectasis of right lung base -Enteric panel ordered -Chest x-ray no acute abnormality -Does have foot wounds and buttock ulcer, foot x-ray with osteopenia of the heads of the fifth metatarsals bilaterally which may be severe osteopenia but cannot rule out osteomyelitis at this time, if not improving or if increase suspicion will need further imaging and podiatry consult, wound care consulted -BP marginal despite fluid resuscitation with intermittent low-grade tachycardia in ED and patient currently receiving 2 units packed red blood cells but given that he is improving do not feel he needs norepinephrine at this time but has high risk for decompensation and is being admitted to ICU -Consult setter off -White blood cell count 28.6 with left shift -Heart rate greater than 90, INR 1.5, initial lactic acid 2.3, elevated troponin -Cultures pending -Treated broad-spectrum with vancomycin and Zosyn -Appears to have been given 2.5 L of fluids in the ED which is appropriate for his weight. Most recent echo on 10/02 showed an EF of 40% with moderate ventricular dysfunction and he does take diuretics at home, will hold diuretics and monitor respiratory status and BP, low threshold for further fluids #Concern for GI bleed -Hx of duodenal bulb ulcer and GIB admitted to [facility] last month with hemorrhagic shock requiring 5u prbc. Had several clips during EEG -Had black stools at custodial and was also observed here in ED, hgb 8.9 with value of 8.4 on 09/18/1292 but stool occult was positive even though it was negative last admission and given his hypotension and tachycardia there is concern that labs had not yet reflected blood loss -2uprbc given in ED -Trend H&H -PPI drip -GI consulted -ortho stats ordered -Reticulocyte count as well as iron panel, instructions for only add on since pt is receiving blood #NSTEMI -suspect type II -EKG reported sinus tac w/ LAD, qtc 497 -Denied chest pain -Will continue to trend though low suspicion for type one, highly suspect it is 2/2 above #Hypokalemia, hypomagnesemia -Replace and will recheck #Urinary retention -Was d/c'd with estrada catheter d/t retention w/ instructions to f/u outpt w/ Dr. Junie jasmine #Atherosclerosis of extremities w/ ulceration -Last admission had CTA with severe diffuse atherosclerotic stenosis notably of bilateral iliac and femoral arteries -Patient was not a good candidate for intervention at that time it was recommended to follow-up outpatient with outpatient stress test prior to intervention -Wound care consult -Continue statin -Cont alfonso for wound healing #Hx cva 08/01/20 -cont statin #hx hypertension -Holding bp meds d/t hypotension #DVT ppx: SCDs given concern for GI bleed Marleen Funk MD Time spent in the patient's overall evaluation,decision-making process, review of diagnostic data, adjustment of management, discussion with other providers, nursing nursing and ancillary staff involved in patient's care documentation, 60 minutes Sepsis Attestation Sepsis Alert: Yes Sepsis Attestation: Agree w/Sepsis Date exam was performed: 10/07/22 Time exam was performed: 09:02 Possible Source of Sepsis: GI tract/intra-abdominal, Genitourinary and Skin/soft tissue Sepsis Organ Dysfunction Criteria Present: SBP < 90 mmHg or MAP < 65 mmHg and Lactic Acid > 2 mmol/L Fluid Resuscitation Fluid resuscitation indicated?: Yes Fluid Resuscitation ordered: 30 ml/kg fluid bolus ordered Charges/Coding Visit Charges Inpatient E&M: 90953 Init Hosp L2
[2022-10-07 09:02] LABS: Lactic Acid 0.8 mmol/L (0.4-1.9)
[2022-10-07 09:16] LABS: Platelet Count 519 K/mm3 (150-450); RET-HE 29.2 pg (30-35); Reticulocyte Count 0.97 % (0.5-1.5)
[2022-10-07 09:26] LABS: Ferritin 1063 ng/mL (26-388); Iron 14 ug/dL (65-175); Iron Binding Capacity,Total 111 ug/dL (250-450)
[2022-10-07] MEDS: 0.9% Saline Lock 10 ML Syringe IV (09:29)
--- NOTE | 2022-10-07 09:34 | WOUNDNOTE ---
wound photo: buttocks
--- NOTE | 2022-10-07 09:35 | WOUNDNOTE ---
wound photo: right foot
--- NOTE | 2022-10-07 09:35 | PCM.RX.CS ---
Consult Pharmacy has been consulted to manage selected antiobiotic: Vancomycin Type of Consult: New start Suspected Infection: Sepsis Labs: Sodium 134 mmol/L (136-145) L 10/07/22 03:15 Potassium 2.1 mmol/L (3.5-5.1) L* 10/07/22 03:15 Chloride 98 mmol/L (98-107) 10/07/22 03:15 Carbon Dioxide 26.0 mmol/L (21.0-32.0) 10/07/22 03:15 Anion Gap 10 (5-15) 10/07/22 03:15 BUN 30 mg/dL (7-18) H 10/07/22 03:15 Creatinine 0.90 mg/dL (0.70-1.30) 10/07/22 03:15 Est GFR (MDRD) Af Amer 106 mL/min (>60) 10/07/22 03:15 Est GFR (MDRD) Non-Af 88 mL/min (>60) 10/07/22 03:15 BUN/Creatinine Ratio 33.4 RATIO (10-20) H 10/07/22 03:15 Glucose 140 mg/dL (74-106) H 10/07/22 03:15 Microbiology: Microbiology 10/07/22 03:15 Stool Stool Occult Blood (VIMAL) - Final Occult Blood Positive Weight used for dosin.3 kg Estimated Creatinine Clearance: 73ML/MIN Goal Trough: 15-20 mcg/mL Pharmacy Plan for Drug Dosing: Give initial dose of 1750mg IV x1 load, then continue with 1250mg IV q12h, which was the starting scheduled dose on a recent admission. Will check a trough before the 4th total dose. Pharmacy Service will continue to monitor and adjust dosing as required. Follow-Up Labs: Trough Vancomycin Labs to be done on [date and time ordered]: 10/08/22 21:30
--- NOTE | 2022-10-07 09:36 | WOUNDNOTE ---
wound photo: right foot
--- NOTE | 2022-10-07 09:36 | WOUNDNOTE ---
wound photo: right heel
[2022-10-07] MEDS: Potassium Chloride 10mEq/100mL 10 MEQ/100 ML IV.SOLN. 100 MEQ IV BOLUS ×10 (09:37→22:52)
--- NOTE | 2022-10-07 09:37 | WOUNDNOTE ---
wound photo: left foot
--- NOTE | 2022-10-07 09:37 | WOUNDNOTE ---
wound photo: left heel
[2022-10-07 10:04] LABS: Troponin-I HS 246 pg/mL (3.0-78.0)
[2022-10-07 10:40] LABS: Procalcitonin 0.17 ng/mL (0.00-0.09)
[2022-10-07] MEDS: Ipratropium/Albuterol Sulfate 3 ML AMPUL.NEB INHALATION ×3 (11:36→19:17)
[2022-10-07 12:22] LABS: M R Staph aureus DNA By PCR POSITIVE (Negative); Probe Check PASS; Staph aureus DNA By PCR POSITIVE (Negative)
--- NOTE | 2022-10-07 12:46 | CON.PCM.CC_ITS ---
Assessment & Plan Assessment/Plan (1) GI bleed: (2) Sepsis: PLAN: Plan RECOMMENDATIONS: 1. Aggressive electrolyte repletion 2. Wean oxygen as tolerated 3. Await GI evaluation 4. H&H every 6 for 24 hours 5. Agree with empiric broad-spectrum antibiotics 6. Hold on additional fluid boluses. Pressors if necessary. 7. Hold baseline antihypertensive medications 8. Replace Soto IMPRESSIONS: 1. Sepsis Unclear source at this time. Patient does have a chronic Soto secondary to urinary retention and UA is suggestive of possible infection. Other sources include decubitus ulcers. Patient will need his Soto to be replaced. Patient is on empiric antibiotics at this time. Patient has been fluid responsive to this point, but given his history for CHF, patient may require pressors. 2. GI bleed secondary to duodenal bulb ulcer Patient with recent admission to outside facility requiring 5 units of packed red blood cells and several clips after EGD with a duodenal bulb ulcer. Clinical suspicion for rebleeding given black stools. Hemoglobin is not significantly down from recent baseline, but patient was given 2 units of packed red blood cells. Patient is on a PPI drip with GI consulted. Doubt hemorrhagic shock leading to hypotension on presentation 3. Type II NSTEMI/chronic systolic CHF Clinical suspicion for decreased perfusion secondary to problems 1 and 2. Patient is denying any chest pain at this time. We will continue with tel emetry. Patient's last echocardiogram showed an EF of 40% with moderate ventricular dysfunction. Antihypertensives and diuretics will be held secondary to problems 1 and 2. No heparin or anticoagulation secondary to problem #2. patient is at increased risk for arrhythmia secondary to hypokalemia and hypomagnesemia 4. Decubitus ulcers/history of CVA/hypertension/advanced age/urinary retention/debility Complicates care, management, recovery and prognosis. Wound care has been consulted. Please see wound note for measurements of wounds. Antihypertensives have been held secondary to problems 1 and 2. Patient does have a Soto in place and this should be replaced given UA. Patient's albumin of 1.6 indicates a significant nutritional deficit. HPI Consult Data Date of Consult: 10/07/22 HPI Narrative Reason for Consultation: Hypotension HPI Narrative: NIKOLAS ADAMS is a 72 M, with past medical history listed below, who presents to [facility] on 10/07/2022 secondary to concerns for GI bleed. Patient reportedly had a large black stool while at a skilled nursing, but did not have any direct complaints. Patient is a very poor informant, but reportedly patient was recently diagnosed with a large duodenal ulcer and had an extended hospital course leading to an ECF placement. ECF staff had reportedly reported no blood thinners, but patient reportedly was hypotensive. Patient does have a history of multiple pressure wounds also. In the ER, patient was afebrile, but tachycardic at 118 bpm. Patient was requiring 2 L nasal cannula to maintain saturations. Blood pressure initially was 108/53, but had been documented as low as 95/45 while in the ER. Laboratory work-up showed a white blood cell count of 28.6, hemoglobin of 8.9 and platelets of 517. Coagulation studies were within normal limits. Chemistries were significant for a potassium of 2.1, creatinine of 0.9 and glucose of 140. Troponin was slightly elevated at 166, but LFTs were within normal limits. Albumin was low at 1.6. Initial magnesium was 0.9 and lactate was 2.3. UA was suggestive of a possible UTI and chest x-ray showed no acute infiltrates. A CT of the abdomen and pelvis did show some possible fecal impaction with bladder wall thickening and multiple dilated small loops of bowel. ER staff had noted significant breakdown of the perineal and buttock area with a quarter sized s tage III pressure ulcer and black stool around the rectum. Patient did receive volume resuscitation for hypotension patient was also transfused 2 units of packed red blood cells and admitted to the intensive care unit for further evaluation. Patient was started on vancomycin and Zosyn secondary to concerns for sepsis related to decubitus ulcers. Since being in the intensive care unit, patient has responded to fluid resuscitation. Patient has not required any pressors and mentation is reporte dly improving per nursing staff. Patient is a very poor historian and unable to provide much additional history. Patient does report emesis for about a week, but is unable to describe it. Patient is not reporting any pain or nausea at this time. Review of the medical record does show the patient had a large duodenal ulcer that required intervention. Patient admits to a 30+ pack year smoking history, but reportedly does not use supplemental oxygen at baseline. Patient also reports drinking 3-4 beers per day, but it denies illicit drug use. Patient is not aware of a diagnosis of COPD or asthma, but would not be surprised if I have it. Review of systems otherwise negative from a constitutional, HEENT, respiratory, cardiovascular, GI, genitourinary, musculoskeletal, skin, neurologic, psychiatric and hematologic system unless stated above. 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 Peripheral vascular disease, unspecified Peripheral vascular occlusive disease Presbycusis of both ears Severe malnutrition Stenosis of right vertebral artery Tobacco dependence due to cigarettes Medical History unable to obtain Home Medications amlodipine 10 mg tablet 10 mg PO DAILY #30 tabs 08/19/20 [Rx Last Taken Unknown] atorvastatin 40 mg tablet 40 mg PO QHS #30 tabs 08/19/20 [Rx Last Taken Unknown] lisinopril 20 mg tablet 20 mg PO QHS 09/07/22 [History Last Taken Unknown] pantoprazole 40 mg tablet,delayed release 40 mg PO BID 09/07/22 [History Last Taken Unknown] sertraline 100 mg tablet 100 mg PO DAILY 09/07/22 [History Last Taken Unknown] tamsulosin 0.4 mg capsule 0.4 mg PO DAILY 09/07/22 [History Last Taken Unknown] albuterol sulfate 2.5 mg/3 mL (0.083 %) solution for nebulization 2.5 mg (3 mL) inhalation Q2H PRN PRN Dyspnea, wheezing #0 mL 09/10/22 [Rx Last Taken Unknown] arginine 7 gram-glutam 7 gram-CaHMB 1.5 [id number] oral pwd pkt (Alfonso (with collagen)) 1 packet PO BIDCM #0 ea 09/10/22 [Rx Last Taken Unknown] ascorbic acid (vitamin C) 500 mg tablet 500 mg PO TIDCM #0 tabs 09/10/22 [Rx Last Taken Unknown] bumetanide 0.5 mg tablet 0.5 mg PO BID #60 tabs 09/10/22 [Rx Last Taken Unknown] ferrous sulfate 300 mg (60 mg iron)/5 mL oral liquid 300 mg (5 mL) PO TIDCM #0 mL 09/10/22 [Rx Last Taken Unknown] guaifenesin 1,200 mg tablet, extended release 12 hr (Mucus Relief ER) 1,200 mg PO BID #0 tabs 09/10/22 [Rx Last Taken Unknown] ipratropium 0.5 mg-albuterol 3 mg (2.5 mg base)/3 mL nebulization soln 3 ml inhalation Q4HWA.RT #0 mL 09/10/22 [Rx Last Taken Unknown] cholecalciferol (vitamin D3) 50 mcg (2,000 unit) capsule 50 mcg PO DAILY 09/22/22 [History Last Taken Unknown] fluconazole 100 mg tablet 100 mg PO DAILY 09/22/22 [History Last Taken Unknown] multivitamin,tx-minerals 1 tab PO DAILY 09/22/22 [History Last Taken Unknown] Allergy/AdvReac Type Severity Reaction Status Date / Time No Known Allergies Allergy Verified 10/07/22 03:00 Family History Father Dementia Mother Dementia Social History household members: none Smoking Status: Current every day smoker tobacco type: cigarettes Tobacco: How many years used: 40 Electronic Cigarette Use: with nicotine second hand exposure: Yes alcohol intake: former year quit: 2020 substance use type: does not use caffeine: Yes (4 cups daily) Type: coffee seatbelt use: sometimes ROS ROS Narrative See HPI Physical Exam Const alert and no apparent distress Constitutional Narrative: Appears older than stated age. No active retching noted. General Appearance: cooperative, comfortable and well developed Exam Limitations: no limitations HEENT normocephalic, head/scalp atraumatic and moist oral mucous membranes; Negative for hearing grossly normal bilaterally HEENT Narrative: Poor dentition. Mallampati is 2 General Ear: hearing grossly impaired bilateral Eyes PERRL and EOMs intact bilaterally; Negative for conjunctivae normal Eyes Narrative: Conjunctiva are pale bilaterally, no scleral icterus Neck no lymphadenopathy and supple Neck Narrative: Trachea midline, no thyroid enlargement Resp normal respiratory effort, no retractions, no use of accessory muscles and clear to auscultation bilaterally Auscultation: diminished lung sounds diffuse; Negative for rales, rhonchi or wheezes Cardio regular rhythm, S1 normal heart sound, S2 normal heart sound, no murmurs, no rub, no gallops and no clicks Rate: tachycardic GI normal to inspection, nondistended, normoactive bowel sounds, soft to palpation and non-tender Extremity no clubbing, cyanosis or edema Extremity Narrative: Markedly diminished pedal pulses bilaterally with delayed cap refill Skin No no rashes or lesions noted, No no wounds, skin turgor normal, no jaundice, no petechiae and no mottling Skin Narrative: Significant vascular appearing wounds on the dorsum of the right foot and lateral aspect of the right leg, small wound left heel. Coccyx not examined Neuro oriented x3, CN's II-XII intact bilaterally, moves all extremities, no focal motor deficits and no sensory deficits noted Neuro Narrative: Significant generalized weakness Psych cooperative Psych Narrative: eye contact is good Mood & Affect: flat affect Medical Records Data Attestation: I reviewed the patient's medical records Lab / Micro Data Attestation: I reviewed the patient's lab results. Result Diagrams: 10/07/22 03:15 10/07/22 03:15 Labs: Laboratory Results - last 24 hr 10/07/22 03:15: WBC 28.6 H, RBC 3.03 L, Hgb 8.9 L, Hct 27.8 L, MCV 91.7, MCH 29.4, MCHC 32.0, RDW Std Deviation 51.5 H, RDW Coeff of Luis 15.4 H, Plt Count 517 H, MPV 10.3, Immature Gran % (Auto) 1.300 H, Neut % (Auto) 94.9 H, Lymph % (Auto) 1.5 L, Phelps % (Auto) 2.0, Eos % (Auto) 0.1, Baso % (Auto) 0.2, Absolute Neuts (auto) 27.1 H, Absolute Lymphs (auto) 0.43 L, Nucleated RBC % 0, Differential Comment SCANNED 10/07/22 03:15: PT 17.5 H, INR 1.5, APTT 37.8 H 10/07/22 03:15: Sodium 134 L, Potassium 2.1 L*, Chloride 98, Carbon Dioxide 26.0, Anion Gap 10, BUN 30 H, Creatinine 0.90, Estim Creat Clear Calc 72.62, Est GFR (MDRD) Af Amer 106, Est GFR (MDRD) Non-Af 88, BUN/Creatinine Ratio 33.4 H, Glucose 140 H, Calcium 7.1 L, Total Bilirubin 0.30, AST 19, ALT 16, Alkaline Phosphatase 114, Troponin I High Sens 166 H*, Total Protein 5.7 L, Albumin 1.6 L , Globulin 4.1, Albumin/Globulin Ratio 0.4 L 10/07/22 03:15: Blood Type O POSITIVE, Antibody Screen NEGATIVE 10/07/22 03:15: Magnesium 0.9 L* 10/07/22 03:15: Crossmatch See Detail 10/07/22 03:15: Retic Count 0.97, Immature Retic Fraction 16.00 H, Retic Hgb Equivalent 29.2 L 10/07/22 03:27: Lactic Acid 2.3 H* 10/07/22 03:50: Urine Color Yellow, Urine Clarity Cloudy, Urine pH 5.0, Ur Specific [place] 1.015, Urine Protein 100 H, Urine Glucose (UA) Normal, Urine Ketones Negative, Urine Occult Blood 25 H, Urine Nitrite Negative, Urine Bilirubin 3 H, Urine Urobilinogen 4 H, Ur Leukocyte Esterase 500 H, Urine RBC 10-25 SEEN, Urine WBC >100 SEEN, Ur Squamous Epith Cells 0-5 SEEN, Urine Bacteria 3+, Hyaline Casts 10-25 SEEN, Urine Mucus 0 SEEN, Urine Yeast 2+ 10/07/22 06:14: Troponin I High Sens 261 H* 10/07/22 08:25: Magnesium 2.0 10/07/22 08:25: Lactic Acid 0.8 10/07/22 08:25: Iron 14 L, TIBC 111 L, Ferritin 1063 H 10/07/22 08:25: Troponin I High Sens 246 H* 10/07/22 09:00: S.aureus Protein A PCR POSITIVE H, MRSA (PCR) POSITIVE H 10/07/22 09:25: Procalcitonin 0.17 H Micro: Microbiology 10/07/22 08:55 Nasal Secretion SARS-CoV-2 & FLU Antigen (Rapid) - Final 10/07/22 03:15 Stool Stool Occult Blood (VIMAL) - Final Occult Blood Positive Radiology Impression Chest X-Ray 10/07/22 03:12 IMPRESSION: No acute cardiopulmonary abnormality. Electronically Signed: Brendon Rivera MD at 4:11 EDT , Abdomen/Pelvis CT 10/07/22 04:19 IMPRESSION: 1. Multiple dilated small bowel loops up to 2.4 cm in diameter scattered throughout the abdomen without a clear-cut point of transition. Findings may be due to ileus or gastroenteritis. Obstruction less likely. 2. Soto catheter within the bladder and mild wall thickening of the urinary bladder unchanged. The wall thickening may be due to muscular hypertrophy or cystitis. 3. Moderate rectal fecal impaction slightly decreased compared with the previous exam. 4. Moderate atelectasis right lung base. Subsegmental atelectasis left lung base. 5. Coronary artery disease. 6. Scattered calcifications are again noted adjacent to the second portion the duodenum and the head of the pancreas unchanged. 7. Small cyst in the prostate unchanged. 8. Small renal cysts bilaterally. No follow-up imaging necessary. Electronically Signed: Brendon Rivera MD at 5:13 EDT Reading Location ID and State: [id number] / [place] Tel , Service support , Foot X-Ray 10/07/22 05:11 IMPRESSION: 1. Marked osteopenia of the heads of the fifth metatarsals bilaterally with loss of the fine cortical line. This may just represent severe osteopenia. Osteomyelitis cannot be completely excluded. No overlying ulceration identified. 2. Severe degenerative changes bilateral first metatarsal phalangeal joints with marked joint space narrowing and marked proliferative bone around the joint. Electronically Signed: Brendon Rivera MD at 6:40 EDT , Charges/Coding Visit Charges Inpatient E&M: 96363 Init Hosp L3
[2022-10-07 14:31] LABS: Hemoglobin 9.8 g/dL (13.0-16.5)
[2022-10-07 14:44] LABS: Anion Gap 3 (5-15); BUN 18 mg/dL (7-18); BUN/Creat Ratio 40.6 RATIO (10-20); Calcium,Total 7.1 mg/dL (8.5-10.1); Chloride 105 mmol/L (98-107); Creatinine, Serum 0.44 mg/dL (0.70-1.30); EST Glomerular Filtration Rate 199 mL/min (>60); Est Glom Filt Rate - Afr Amer 240 mL/min (>60); Estimated Creatinine Clearance 61.88 ml/min; Glucose 101 mg/dL (74-106); Magnesium 1.6 mg/dL (1.6-2.6); Potassium 2.2 mmol/L (3.5-5.1); Sodium Level 137 mmol/L (136-145)
[2022-10-07] MEDS: Juven (unflavored) Packet 1 PACKET PO (15:15)
[2022-10-07] MEDS: Potassium Chloride Oral Soln 20 MEQ/15 ML UDC 40 MEQ PO (15:28)
[2022-10-07] MEDS: DAKIN'S SOL HALF STRENGTH (=0.25%) 1 APPLIC TOPICAL (15:29)
--- NOTE | 2022-10-07 16:59 | EX.PCM.CON.G ---
HPI Consult Data Date of Consult: 10/07/22 HPI Narrative Reason for Consultation: GI bleed HPI Narrative: NIKOLAS ADAMS, is a 72 M who presents ?He was discharged to SNF for rehab and represented to [facility] 10/07/22 after he was found to have a giant black stool and was diaphoretic and hypotensive at senior care facility.? He was sent to [facility]. He was sent to the ICU due to intermittent tachycardia, hypotension and elevated white blood cell count of 28.6 with a lactic acidosis. He was also noted to have an increased troponin up to 261. He has been seen by the migratory game bird biologist service. He has h/o carotid disease, HTN, HLD, Anxiety and Depression, Hx CVA, PVOD, COPD, GERD, BPH, Anxiety and Depression. He presented to the [facility] ED on 09/07/22 with history of progressively worsening dyspnea as well cough with recent discharge from [facility] discharged on 09/05/22 admitted with noted per clinisync records found at his home unresponsive, encephalopathic and hypotensive secondary to hemorrhagic shock requiring transient intubation with GI bleed secondary to duodenal ulcer requiring 5 unit PRBC administration and several clipping complicated by urinary retention and bilateral foot wounds w/ transition to SNF. ? 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 Peripheral vascular disease, unspecified Peripheral vascular occlusive disease Presbycusis of both ears Severe malnutrition Stenosis of right vertebral artery Tobacco dependence due to cigarettes Medical History unable to obtain Home Medications amlodipine 10 mg tablet 10 mg PO DAILY #30 tabs 08/19/20 [Rx Last Taken Unknown] atorvastatin 40 mg tablet 40 mg PO QHS #30 tabs 08/19/20 [Rx Last Taken Unknown] lisinopril 20 mg tablet 20 mg PO QHS 09/07/22 [History Last Taken Unknown] pantoprazole 40 mg tablet,delayed release 40 mg PO BID 09/07/22 [History Last Taken Unknown] sertraline 100 mg tablet 100 mg PO DAILY 09/07/22 [History Last Taken Unknown] tamsulosin 0.4 mg capsule 0.4 mg PO DAILY 09/07/22 [History Last Taken Unknown] albuterol sulfate 2.5 mg/3 mL (0.083 %) solution for nebulization 2.5 mg (3 mL) inhalation Q2H PRN PRN Dyspnea, wheezing #0 mL 09/10/22 [Rx Last Taken Unknown] arginine 7 gram-glutam 7 gram-CaHMB 1.5 [id number] oral pwd pkt (Alfonso (with collagen)) 1 packet PO BIDCM #0 ea 09/10/22 [Rx Last Taken Unknown] ascorbic acid (vitamin C) 500 mg tablet 500 mg PO TIDCM #0 tabs 09/10/22 [Rx Last Taken Unknown] bumetanide 0.5 mg tablet 0.5 mg PO BID #60 tabs 09/10/22 [Rx Last Taken Unknown] ferrous sulfate 300 mg (60 mg iron)/5 mL oral liquid 300 mg (5 mL) PO TIDCM #0 mL 09/10/22 [Rx Last Taken Unknown] guaifenesin 1,200 mg tablet, extended release 12 hr (Mucus Relief ER) 1,200 mg PO BID #0 tabs 09/10/22 [Rx Last Taken Unknown] ipratropium 0.5 mg-albuterol 3 mg (2.5 mg base)/3 mL nebulization soln 3 ml inhalation Q4HWA.RT #0 mL 09/10/22 [Rx Last Taken Unknown] cholecalciferol (vitamin D3) 50 mcg (2,000 unit) capsule 50 mcg PO DAILY 09/22/22 [History Last Taken Unknown] fluconazole 100 mg tablet 100 mg PO DAILY 09/22/22 [History Last Taken Unknown] multivitamin,tx-minerals 1 tab PO DAILY 09/22/22 [History Last Taken Unknown] Allergy/AdvReac Type Severity Reaction Status Date / Time No Known Allergies Allergy Verified 10/07/22 03:00 Family History Father Dementia Mother Dementia Social History household members: none Smoking Status: Current every day smoker tobacco type: cigarettes Tobacco: How many years used: 40 Electronic Cigarette Use: with nicotine second hand exposure: Yes alcohol intake: former year quit: 2020 substance use type: does not use caffeine: Yes (4 cups daily) Type: coffee seatbelt use: sometimes ROS ROS Narrative General: Denies fever/chills HENT: Denies headache, denies stuffy nose, denies sore throat EYES: Denies changes in vision Resp: Denies cough, denies shortness of breath Cardiac: Denies chest pain GI: Denies abdominal pain, denies nausea/vomiting : has estrada Extremity: Denies swelling MSK: Denies weakness Neuro: Denies any numbness/tingling Heme: Denies any bleeding or bruising Skin: Denies rashes but does have noted foot wounds Psychiatric: No complaints voiced Physical Exam Const alert and no apparent distress General Appearance: cooperative, comfortable and well developed Exam Limitations: no limitations HEENT normocephalic, head/scalp atraumatic and moist oral mucous membranes; Negative for hearing grossly normal bilaterally HEENT Narrative: Poor dentition. Mallampati is 2 General Ear: hearing grossly impaired bilateral Eyes PERRL and EOMs intact bilaterally; Negative for conjunctivae normal Eyes Narrative: Conjunctiva are pale bilaterally, no scleral icterus Neck no lymphadenopathy and supple Neck Narrative: Trachea midline, no thyroid enlargement Resp normal respiratory effort, no retractions, no use of accessory muscles and clear to auscultation bilaterally Auscultation: diminished lung sounds diffuse; Negative for rales, rhonchi or wheezes Cardio regular rhythm, S1 normal heart sound, S2 normal heart sound, no murmurs, no rub, no gallops and no clicks Rate: tachycardic GI normal to inspection, nondistended, normoactive bowel sounds, soft to palpation and non-tender Extremity no clubbing, cyanosis or edema Extremity Narrative: Markedly diminished pedal pulses bilaterally with delayed cap refill Skin No no rashes or lesions noted, No no wounds, skin turgor normal, no jaundice, no petechiae and no mottling Skin Narrative: Significant vascular appearing wounds on the dorsum of the right foot and lateral aspect of the right leg, small wound left heel. Coccyx not examined Neuro oriented x3, CN's II-XII intact bilaterally, moves all extremities, no focal motor deficits and no sensory deficits noted Neuro Narrative: Significant generalized weakness Psych cooperative Psych Narrative: eye contact is good Mood & Affect: flat affect Medical Records Data Medical Nutrition Assessment Dietitian: Malnutrition Criteria Met Start: 10/07/22 14:13 Freq: Status: Active Protocol: Document 10/07/22 14:13 AG (Rec: 10/07/22 14:13 [id number]) Nutrition Malnutrition Evidence of Malnutrition Exists Yes Malnutrition (severe): Chronic Evidenced By Suboptimal Energy Intake ( Severe),Weight Loss (Severe) Clinical Problem Acute Disease or Injury Related Malnutrition Etiology severe, acute malnutrition related to inadequate energy intake Signs/Symptoms as evidenced by unintentional wt loss of 19.4#/12% x 1 month ; estimated PO intake meeting <75% of estimated energy needs > 1 month Status Active Problem Recommendation Dietitian Recommendations/Changes recommend advance diet as tolerated to regular, texture/ consistency per SIDING INSTALLER; Alfonso BID for wound healing. Ensure Plus High Protein 120mL 4x/day w/ medpass when diet advanced Lab / Micro Data Result Diagrams: 10/07/22 14:20 10/07/22 14:20 Labs: Laboratory Results - last 24 hr 10/07/22 03:15: WBC 28.6 H, RBC 3.03 L, Hgb 8.9 L, Hct 27.8 L, MCV 91.7, MCH 29.4, MCHC 32.0, RDW Std Deviation 51.5 H, RDW Coeff of Luis 15.4 H, Plt Count 517 H, MPV 10.3, Immature Gran % (Auto) 1.300 H, Neut % (Auto) 94.9 H, Lymph % (Auto) 1.5 L, Gulf % (Auto) 2.0, Eos % (Auto) 0.1, Baso % (Auto) 0.2, Absolute Neuts (auto) 27.1 H, Absolute Lymphs (auto) 0.43 L, Nucleated RBC % 0, Differential Comment SCANNED 10/07/22 03:15: PT 17.5 H, INR 1.5, APTT 37.8 H 10/07/22 03:15: Sodium 134 L, Potassium 2.1 L*, Chloride 98, Carbon Dioxide 26.0, Anion Gap 10, BUN 30 H, Creatinine 0.90, Estim Creat Clear Calc 72.62, Est GFR (MDRD) Af Amer 106, Est GFR (MDRD) Non-Af 88, BUN/Creatinine Ratio 33.4 H, Glucose 140 H, Calcium 7.1 L, Total Bilirubin 0.30, AST 19, ALT 16, Alkaline Phosphatase 114, Troponin I High Sens 166 H*, Total Protein 5.7 L, Albumin 1.6 L, Globulin 4.1, Albumin/Globulin Ratio 0.4 L 10/07/22 03:15: Blood Type O POSITIVE, Antibody Screen NEGATIVE 10/07/22 03:15: Magnesium 0.9 L* 10/07/22 03:15: Crossmatch See Detail 10/07/22 03:15: Retic Count 0.97, Immature Retic Fraction 16.00 H, Retic Hgb Equivalent 29.2 L 10/07/22 03:27: Lactic Acid 2.3 H* 10/07/22 03:50: Urine Color Yellow, Urine Clarity Cloudy, Urine pH 5.0, Ur Specific [place] 1.015, Urine Protein 100 H, Urine Glucose (UA) Normal, Urine Ketones Negative, Urine Occult Blood 25 H, Urine Nitrite Negative, Urine Bilirubin 3 H, Urine Urobilinogen 4 H, Ur Leukocyte Esterase 500 H, Urine RBC 10-25 SEEN, Urine WBC >100 SEEN, Ur Squamous Epith Cells 0-5 SEEN, Urine Bacteria 3+, Hyaline Casts 10-25 SEEN, Urine Mucus 0 SEEN, Urine Yeast 2+ 10/07/22 06:14: Troponin I High Sens 261 H* 10/07/22 08:25: Magnesium 2.0 10/07/22 08:25: Lactic Acid 0.8 10/07/22 08:25: Iron 14 L, TIBC 111 L, Ferritin 1063 H 10/07/22 08:25: Troponin I High Sens 246 H* 10/07/22 09:00: S.aureus Protein A PCR POSITIVE H, MRSA (PCR) POSITIVE H 10/07/22 09:25: Procalcitonin 0.17 H 10/07/22 14:20: Sodium 137, Potassium 2.2 L*, Chloride 105, Carbon Dioxide 29.0, Anion Gap 3 L, BUN 18, Creatinine 0.44 L, Estim Creat Clear Calc 61.88, Est GFR (MDRD) Af Amer 240, Est GFR (MDRD) Non-Af 199, BUN/Creatinine Ratio 40.6 H, Glucose 101, Calcium 7.1 L, Magnesium 1.6 10/07/22 14:20: Hgb 9.8 L Micro: Microbiology 10/07/22 08:50 Stool Enteric Bacteriology - Final 10/07/22 08:50 Stool C. difficile GDH Antigen & Toxins - Final 10/07/22 08:50 Stool C. difficile DNA Amplification - Final 10/07/22 08:55 Nasal Secretion SARS-CoV-2 & FLU Antigen (Rapid) - Final 10/07/22 03:15 Stool Stool Occult Blood (VIMAL) - Final Occult Blood Positive Radiology Impression Chest X-Ray 10/07/22 03:12 IMPRESSION: No acute cardiopulmonary abnormality. Electronically Signed: Brendon Rivera MD at 4:11 EDT , Abdomen/Pelvis CT 10/07/22 04:19 IMPRESSION: 1. Multiple dilated small bowel loops up to 2.4 cm in diameter scattered throughout the abdomen without a clear-cut point of transition. Findings may be due to ileus or gastroenteritis. Obstruction less likely. 2. Estrada catheter within the bladder and mild wall thickening of the urinary bladder unchanged. The wall thickening may be due to muscular hypertrophy or cystitis. 3. Moderate rectal fecal impaction slightly decreased compared with the previous exam. 4. Moderate atelectasis right lung base. Subsegmental atelectasis left lung base. 5. Coronary artery disease. 6. Scattered calcifications are again noted adjacent to the second portion the duodenum and the head of the pancreas unchanged. 7. Small cyst in the prostate unchanged. 8. Small renal cysts bilaterally. No follow-up imaging necessary. Electronically Signed: Brendon Rivera MD at 5:13 EDT , Foot X-Ray 10/07/22 05:11 IMPRESSION: 1. Marked osteopenia of the heads of the fifth metatarsals bilaterally with loss of the fine cortical line. This may just represent severe osteopenia. Osteomyelitis cannot be completely excluded. No overlying ulceration identified. 2. Severe degenerative changes bilateral first metatarsal phalangeal joints with marked joint space narrowing and marked proliferative bone around the joint. Electronically Signed: Brendon Rivera MD at 6:40 EDT , Assessment & Plan Assessment/Plan (1) Acute respiratory failure with hypoxia: (2) Sepsis: (3) Peripheral vascular disease, unspecified: (4) Non-pressure chronic ulcer of other part of right foot with necrosis of muscle: (5) HCAP (healthcare-associated pneumonia): (6) Anemia: (7) Severe malnutrition: (8) Dysphagia: PLAN: Plan Possible sepsis -Patient meets sepsis criteria with 2 SIRS criteria plus source He is being managed by hospitalist services and migratory game bird biologist. Severe malnutrition -He will likely need supplementation Recent GI bleed secondary to duodenal ulcer -Patient anemic and hemoglobin dropped then came back up. -Did require 5 units transfusion during that hospitalization -EGD performed and showed duodenal ulcer that required clipping -Continue PPI 40 mg p.o. twice daily -Hemoglobin at discharge from [facility] was 8.6 -repeat CBC in a.m. -N.p.o. past midnight for EGD in the morning. Charges/Coding Visit Charges Inpatient E&M: 96934 Init Hosp L3
[2022-10-07 20:28] LABS: Hemoglobin 9.9 g/dL (13.0-16.5)
[2022-10-07 20:43] LABS: Anion Gap 4 (5-15); BUN 20 mg/dL (7-18); BUN/Creat Ratio 49.9 RATIO (10-20); Calcium,Total 7.5 mg/dL (8.5-10.1); Chloride 105 mmol/L (98-107); EST Glomerular Filtration Rate 223 mL/min (>60); Est Glom Filt Rate - Afr Amer 270 mL/min (>60); Estimated Creatinine Clearance 61.88 ml/min; Glucose 107 mg/dL (74-106); Sodium Level 136 mmol/L (136-145)
[2022-10-07] MEDS: Atorvastatin Calcium 40 MG Tablet PO (21:36)
[2022-10-08] VITALS (34 sets, daily range): BP systolic 99–130; BP diastolic 46–81; PULSE 86–115; RESP 12–22; TEMP 36.6–37.8; O2SAT 86–98; BMI 22.4
[2022-10-08] MEDS: Potassium Chloride 10mEq/100mL 10 MEQ/100 ML IV.SOLN. 100 MEQ IV BOLUS ×6 (00:29→09:41)
[2022-10-08 04:27] LABS: Hemoglobin 8.9 g/dL (13.0-16.5)
[2022-10-08 04:43] LABS: ALB/GLOB Ratio 0.4 RATIO (0.9-2.4); AST(SGOT) 13 U/L (15-37); Alanine Aminotransfer ALT/SGPT 16 U/L (16-61); Albumin, Serum 1.4 g/dL (3.2-5.0); Alkaline Phosphatase 105 U/L (45-117); Anion Gap 2 (5-15); BUN 17 mg/dL (7-18); BUN/Creat Ratio 52.5 RATIO (10-20); Calcium,Total 7.1 mg/dL (8.5-10.1); Chloride 108 mmol/L (98-107); Creatinine, Serum 0.32 mg/dL (0.70-1.30); EST Glomerular Filtration Rate 285 mL/min (>60); Est Glom Filt Rate - Afr Amer 345 mL/min (>60); Estimated Creatinine Clearance 61.88 ml/min; Globulin 3.5 g/dL (2.2-4.2); Glucose 103 mg/dL (74-106); Magnesium 1.9 mg/dL (1.6-2.6); Potassium 3.2 mmol/L (3.5-5.1); Protein, Total 4.9 g/dL (6.4-8.2); Sodium Level 137 mmol/L (136-145)
--- NOTE | 2022-10-08 07:00 | PN.CC_ITS ---
Assessment & Plan Assessment/Plan (1) GI bleed: (2) Sepsis: PLAN: Plan RECOMMENDATIONS: 1. Aggressive electrolyte repletion 2. Wean oxygen as tolerated 3. Await GI evaluation 4. Obtain ID consultation 5. Agree with empiric broad-spectrum antibiotics 6. Hold on additional fluid boluses. Pressors if necessary. 7. Hold baseline antihypertensive medications 8. Await results of EGD IMPRESSIONS: 1. Sepsis Unclear source at this time. Patient does have a chronic Soto secondary to urinary retention and UA is suggestive of possible infection. Soto has been replaced. Other sources include decubitus ulcers. Patient does have C. difficile present, but no toxin. We will consult ID to see if p.o. vancomycin would be appropriate empirically. Patient is on empiric antibiotics at this time. Patient has been fluid responsive to this point, but given his history for CHF, patient may require pressors. 2. GI bleed secondary to duodenal bulb ulcer Patient with recent admission to outside facility requiring 5 units of packed red blood cells and several clips after EGD with a duodenal bulb ulcer. Clinical suspicion for rebleeding given black stools. Hemoglobin is not signi ficantly down from recent baseline, but patient was given 2 units of packed red blood cells. Patient is on a PPI drip with GI consulted. Doubt hemorrhagic shock leading to hypotension on presentation. Patient reportedly to have an EGD this morning. 3. Type II NSTEMI/chronic systolic CHF Clinical suspicion for decreased perfusion secondary to problems 1 and 2. Patient is denying any chest pain at this time. We will continue with telemetry. Patient's last echocardiogram showed an EF of 40% with moderate ventricular dysfunction. Antihypertensives and diuretics will be held secondary to problems 1 and 2. No heparin or anticoagulation secondary to problem #2. patient is at increased risk for arrhythmia secondary to hypokalemia and hypomagnesemia 4. Decubitus ulcers/history of CVA/hypertension/advanced age/urinary retention/debility Complicates care, management, recovery and prognosis. Wound care has been consulted. Please see wound note for measurements of wounds. Antihypertensives have been held secondary to problems 1 and 2. Soto has been replaced patient's albumin of 1.6 indicates a significant nutritional deficit. Subjective Subjective Patient did okay overnight. Patient has had significant desaturations associated with sleep with nursing reporting apneic episodes. Patient wakes up and is appropriate. Patient is not reporting any new pains. Objective Data Objective Data Vital Signs: Vital Signs Temp Pulse Resp BP Pulse Ox O2 Del Method O2 Flow Rate 36.7 C 92 18 113/59 L 92 Nasal Cannula 2 10/08/22 06:00 10/08/22 06:00 10/08/22 06:00 10/08/22 06:00 10/08/22 06:00 10/08/22 06:00 10/08/22 06:00 Oxygen Flow Rate (L/min) 2 Oxygen Delivery Method Nasal Cannula Weight: 72.5 kg Body Mass Index (BMI) 22.4 Intake & Output: Intake and Output for Last 24 Hours 10/06/22 10/07/22 10/08/22 23:59 23:59 23:59 Intake Total 6303.33 / 6303.33 350 / 350 Output Total 1450 / 1450 350 / 350 Balance 4853.33 / 4853.33 0 / 0 Medical Nutrition Assessment Dietitian: Malnutrition Criteria Met Start: 10/07/22 14 :13 Freq: Status: Active Protocol: Document 10/07/22 14:13 AG (Rec: 10/07/22 14:13 [id number]) Nutrition Malnutrition Evidence of Malnutrition Exists Yes Malnutrition (severe): Chronic Evidenced By Suboptimal Energy Intake ( Severe),Weight Loss (Severe) Clinical Problem Acute Disease or Injury Related Malnutrition Etiology severe, acute malnutrition related to inadequate energy intake Signs/Symptoms as evidenced by unintentional wt loss of 19.4#/12% x 1 month ; estimated PO intake meeting <75% of estimated energy needs > 1 month Status Active Problem Recommendation Dietitian Recommendations/Changes recommend advance diet as tolerated to regular, texture/ consistency per HOSPITAL ACCOUNT MANAGER; Alfonso BID for wound healing. Ensure Plus High Protein 120mL 4x/day w/ medpass when diet advanced Lab / Micro Data Attestation: I reviewed the patient's lab results. Result Diagrams: 10/08/22 04:20 10/08/22 04:20 Labs: Laboratory Results - last 24 hr 10/07/22 03:15: Crossmatch See Detail 10/07/22 03:15: Retic Count 0.97, Immature Retic Fraction 16.00 H, Retic Hgb Equivalent 29.2 L 10/07/22 08:25: Magnesium 2.0 10/07/22 08:25: Lactic Acid 0.8 10/07/22 08:25: Iron 14 L, TIBC 111 L, Ferritin 1063 H 10/07/22 08:25: Troponin I High Sens 246 H* 10/07/22 09:00: S.aureus Protein A PCR POSITIVE H, MRSA (PCR) POSITIVE H 10/07/22 09:25: Procalcitonin 0.17 H 10/07/22 14:20: Sodium 137, Potassium 2.2 L*, Chloride 105, Carbon Dioxide 29.0, Anion Gap 3 L, BUN 18, Creatinine 0.44 L, Estim Creat Clear Calc 61.88, Est GFR (MDRD) Af Amer 240, Est GFR (MDRD) Non-Af 199, BUN/Creatinine Ratio 40.6 H, Glucose 101, Calcium 7.1 L, Magnesium 1.6 10/07/22 14:20: Hgb 9.8 L 10/07/22 20:20: Sodium 136, Potassium 3.0 L, Chloride 105, Carbon Dioxide 27.0, Anion Gap 4 L, BUN 20 H, Creatinine 0.40 L, Estim Creat Clear Calc 61.88, Est GFR (MDRD) Af Amer 270, Est GFR (MDRD) Non-Af 223, BUN/Creatinine Ratio 49.9 H, Glucose 107 H, Calcium 7.5 L, Magnesium 2.0 10/07/22 20:20: Hgb 9.9 L 10/08/22 04:20: Hgb 8.9 L 10/08/22 04:20: Sodium 137, Potassium 3.2 L, Chloride 108 H, Carbon Dioxide 27.0, Anion Gap 2 L, BUN 17, Creatinine 0.32 L, Estim Creat Clear Calc 61.88, Est GFR (MDRD) Af Amer 345, Est GFR (MDRD) Non-Af 285, BUN/Creatinine Ratio 52.5 H, Glucose 103, Calcium 7.1 L, Magnesium 1.9, Total Bilirubin 0.50, AST 13 L, ALT 16, Alkaline Phosphatase 105, Total Protein 4.9 L, Albumin 1.4 L, Globulin 3.5, Albumin/Globulin Ratio 0.4 L Micro: Microbiology 10/07/22 08:50 Stool Enteric Bacteriology - Final 10/07/22 08:50 Stool C. difficile GDH Antigen & Toxins - Final 10/07/22 08:50 Stool C. difficile DNA Amplification - Final 10/07/22 08:55 Nasal Secretion SARS-CoV-2 & FLU Antigen (Rapid) - Final 10/07/22 03:15 Stool Stool Occult Blood (VIMAL) - Final Occult Blood Positive Physical Exam Const alert and no apparent distress Constitutional Narrative: Appears older than stated age. No active retching noted. General Appearance: cooperative, comfortable and well developed Exam Limitations: no limitations HEENT normocephalic, head/scalp atraumatic and moist oral mucous membranes HEENT Narrative: Nasal cannula oxygen in place General Ear: hearing grossly impaired diffuse Eyes PERRL and EOMs intact bilaterally; Negative for conjunctivae normal Eyes Narrative: Conjunctiva are pale bilaterally, no scleral icterus Neck no lymphadenopathy and supple Neck Narrative: Trachea midline, no thyroid enlargement Resp normal respiratory effort, no retractions, no use of accessory muscles and clear to auscultation bilaterally Auscultation: diminished lung sounds diffuse; Negative for rales, rhonchi or wheezes Cardio regular rate, regular rhythm, S1 normal heart sound, S2 normal heart sound, no murmurs, no rub, no gallops and no clicks GI normal to inspection, nondistended, normoactive bowel sounds, soft to palpation and non-tender Extremity no clubbing, cyanosis or edema Extremity Narrative: Markedly diminished pedal pulses bilaterally with delayed cap refill Skin No no rashes or lesions noted, No no wounds, skin turgor normal, no jaundice, no petechiae and no mottling Skin Narrative: Significant vascular appearing wounds on the dorsum of the right foot and lateral aspect of the right leg, small wound left heel. Coccyx not examined Neuro oriented x3, CN's II-XII intact bilaterally, moves all extremities, no focal motor deficits and no sensory deficits noted Neuro Narrative: Significant generalized weakness Psych cooperative Psych Narrative: eye contact is good Mood & Affect: flat affect Charges/Coding Visit Charges Inpatient E&M: 46579 Subs Hosp L3
[2022-10-08] MEDS: Ipratropium/Albuterol Sulfate 3 ML AMPUL.NEB INHALATION ×3 (07:05→19:52)
--- NOTE | 2022-10-08 08:32 | PCM.PN.HOSP ---
Reason for Visit Reason for Visit: Diagnoses Sepsis, unspecified organism (10/07/22) Anemia, unspecified (10/07/22) Unspecified severe protein-calorie malnutrition (10/07/22) Peripheral vascular disease, unspecified (10/07/22) Pneumonia, unspecified organism (10/07/22) Acute respiratory failure with hypoxia (10/07/22) Gastrointestinal hemorrhage, unspecified (10/07/22) Non-pressure chronic ulcer of other part of right foot with necrosis of muscle (10/07/22) Dysphagia, unspecified (10/07/22) Subjective Subjective Lying in bed, no acute distress, no complaints. Overnight he would desat when he would fall asleep lower, but minimal oxygen or when he was awake Objective Data Objective Data Vital Signs: Vital Signs Temp Pulse Resp BP Pulse Ox O2 Del Method O2 Flow Rate 98.5 F 96 17 117/57 L 95 Nasal Cannula 4 10/08/22 08:00 10/08/22 08:00 10/08/22 08:00 10/08/22 08:00 10/08/22 08:00 10/08/22 08:00 10/08/22 08:00 Oxygen Flow Rate (L/min) 4 Oxygen Delivery Method Nasal Cannula Weight: 72.5 kg Body Mass Index (BMI) 22.4 Intake & Output: Intake and Output for Last 24 Hours 10/06/22 10/07/22 10/08/22 23:59 23:59 23:59 Intake Total 6303.33 / 6303.33 450 / 450 Output Total 1450 / 1450 350 / 350 Balance 4853.33 / 4853.33 100 / 100 Medical Nutrition Assessment Dietitian: Malnutrition Criteria Met Start: 10/07/22 14:13 Freq: Status: Active Protocol: Document 10/07/22 14:13 AG (Rec: 10/07/22 14:13 AG [id number]) Nutrition Malnutrition Evidence of Malnutrition Exists Yes Malnutrition (severe): Chronic Evidenced By Suboptimal Energy Intake ( Severe),Weight Loss (Severe) Clinical Problem Acute Disease or Injury Related Malnutrition Etiology severe, acute malnutrition related to inadequate energy intake Signs/Symptoms as evidenced by unintentional wt loss of 19.4#/12% x 1 month ; estimated PO intake meeting <75% of estimated energy needs > 1 month Status Active Problem Recommendation Dietitian Recommendations/Changes recommend advance diet as tolerated to regular, texture/ consistency per LAB COORDINATOR; Alfonso BID for wound healing. Ensure Plus High Protein 120mL 4x/day w/ medpass when diet advanced Lab / Micro Data Result Diagrams: 10/08/22 04:20 10/08/22 04:20 Labs: Laboratory Results - last 24 hr 10/07/22 03:15: Crossmatch See Detail 10/07/22 03:15: Retic Count 0.97, Immature Retic Fraction 16.00 H, Retic Hgb Equivalent 29.2 L 10/07/22 08:25: Magnesium 2.0 10/07/22 08:25: Lactic Acid 0.8 10/07/22 08:25: Iron 14 L, TIBC 111 L, Ferritin 1063 H 10/07/22 08:25: Troponin I High Sens 246 H* 10/07/22 09:00: S.aureus Protein A PCR POSITIVE H, MRSA (PCR) POSITIVE H 10/07/22 09:25: Procalcitonin 0.17 H 10/07/22 14:20: Sodium 137, Potassium 2.2 L*, Chloride 105, Carbon Dioxide 29.0, Anion Gap 3 L, BUN 18, Creatinine 0.44 L, Estim Creat Clear Calc 61.88, Est GFR (MDRD) Af Amer 240, Est GFR (MDRD) Non-Af 199, BUN/Creatinine Ratio 40.6 H, Glucose 101, Calcium 7.1 L, Magnesium 1.6 10/07/22 14:20: Hgb 9.8 L 10/07/22 20:20: Sodium 136, Potassium 3.0 L, Chloride 105, Carbon Dioxide 27.0, Anion Gap 4 L, BUN 20 H, Creatinine 0.40 L, Estim Creat Clear Calc 61.88, Est GFR (MDRD) Af Amer 270, Est GFR (MDRD) Non-Af 223, BUN/Creatinine Ratio 49.9 H, Glucose 107 H, Calcium 7.5 L, Magnesium 2.0 10/07/22 20:20: Hgb 9.9 L 10/08/22 04:20: Hgb 8.9 L 10/08/22 04:20: Sodium 137, Potassium 3.2 L, Chloride 108 H, Carbon Dioxide 27.0, Anion Gap 2 L, BUN 17, Creatinine 0.32 L, Estim Creat Clear Calc 61.88, Est GFR (MDRD) Af Amer 345, Est GFR (MDRD) Non-Af 285, BUN/Creatinine Ratio 52.5 H, Glucose 103, Calcium 7.1 L, Magnesium 1.9, Total Bilirubin 0.50, AST 13 L, ALT 16, Alkaline Phosphatase 105, Total Protein 4.9 L, Albumin 1.4 L, Globulin 3.5, Albumin/Globulin Ratio 0.4 L Micro: Microbiology 10/07/22 08:50 Stool Enteric Bacteriology - Final 10/07/22 08:50 Stool C. difficile GDH Antigen & Toxins - Final 10/07/22 08:50 Stool C. difficile DNA Amplification - Final 10/07/22 08:55 Nasal Secretion SARS-CoV-2 & FLU Antigen (Rapid) - Final 10/07/22 03:15 Stool Stool Occult Blood (VIMAL) - Final Occult Blood Positive Physical Exam Narrative General: Wakes up, answers questions appropriately HEENT: Atraumatic, nose is somewhat depressed and towards the right same as previous Eyes: Anicteric, normal conjunctiva, extraocular movements grossly intact Neck: Supple Respiratory: No wheezes or rhonchi, normal respiratory effort Cardiovascular: Regular rate and rhythm GI: Soft, nontender, nondistended Extremities: No edema Musculoskeletal: Moving all extremities Neuro: No overt focal neurological deficits Skin: Bilateral lower extremities wrapped, multiple foot wounds with eschar overlying Psych: Attempts to be cooperative Assessment & Plan Assessment/Plan (1) GI bleed: PLAN: Plan #Sepsis, unclear source -unclear source, has had Estrada and UA did show bacteria, leuk esterase, white blood cells but unclear if colonized or when it was last changed, will need to explore this further. -CT abdomen pelvis with multiple dilated small bowel loops up to 2.4 cm in diameter scattered throughout the abdomen without a clear-cut transition point which per report may be due to ileus or gastroenteritis. Mild wall thickening in the urinary bladder unchanged and may be due to muscular hypertrophy or cystitis. Additionally moderate rectal fecal impaction which is slightly decreased compared to previous, moderate atelectasis of right lung base -Enteric panel ordered -Chest x-ray no acute abnormality -Does have foot wounds and buttock ulcer, foot x-ray with osteopenia of the heads of the fifth metatarsals bilaterally which may be severe osteopenia but cannot rule out osteomyelitis at this time, if not improving or if increase suspicion will need further imaging and podiatry consult, wound care consulted -BP marginal despite fluid resuscitation with intermittent low-grade tachycardia in ED and patient currently receiving 2 units packed red blood cells but given that he is improving do not feel he needs norepinephrine at this time but has high risk for decompensation and is being admitted to ICU -Consult surface grinding machine hand -White blood cell count 28.6 with left shift -Heart rate greater than 90, INR 1.5, initial lactic acid 2.3, elevated troponin -Cultures pending -Treated broad-spectrum with vancomycin and Zosyn -Appears to have been given 2.5 L of fluids in the ED which is appropriate for his weight. Most recent echo on 10/02 showed an EF of 40% with moderate ventricular dysfunction and he does take diuretics at home, will hold diuretics and monitor respiratory status and BP, low threshold for further fluids -10/08: Doing better today, C. difficile present in stool but no toxin, infectious disease consulted. Wound culture of right upper buttock wound with strep pyogenes and Staph aureus with sensitivities pending. Urine and blood cultures pending, remains on broad-spectrum antibiotics. #Concern for GI bleed -Hx of duodenal bulb ulcer and GIB admitted to [facility] last month with hemorrhagic shock requiring 5u prbc. Had several clips during EEG -Had black stools at custodial and was also observed here in ED, hgb 8.9 with value of 8.4 on 09/18/1292 but stool occult was positive even though it was negative last admission and given his hypotension and tachycardia there is concern that labs had not yet reflected blood loss -2uprbc given in ED -Trend H&H -PPI drip -GI consulted -ortho stats ordered -Reticulocyte count as well as iron panel, instructions for only add on since pt is receiving blood -10/08: EGD today with severe erosive esophagitis which was biopsied, benign-appearing esophageal stenosis which was dilated and an oozing duodenal ulcer with pigmented material which was injected and treated with heater probe. Clear liquid diet recommended. Hemoglobin is slightly down today but appears similar to baseline with no new overt bleeding noted. We will continue to trend #NSTEMI type II -EKG reported sinus tac w/ LAD, qtc 497 -Denied chest pain -Will continue to trend though low suspicion for type one, highly suspect it is 2/2 above -10/08: Troponin peaked at 261 and then down trended to 246, have amended diagnosis to type II NSTEMI #Hypokalemia, hypomagnesemia -Replace and will recheck -10/08: Continue repletion of lites #Urinary retention -Was d/c'd with estrada catheter d/t retention w/ instructions to f/u outpt w/ Dr. Junie jasmine -10/08: Estrada replaced in ICU upon admission #Atherosclerosis of extremities w/ ulceration -Last admission had CTA with severe diffuse atherosclerotic stenosis notably of bilateral iliac and femoral arteries -Patient was not a good candidate for intervention at that time it was recommended to follow-up outpatient with outpatient stress test prior to intervention -Wound care consult -Continue statin -Cont alfonso for wound healing #Hx cva 08/01/20 -cont statin #hx hypertension -Holding bp meds d/t hypotension #DVT ppx: SCDs given concern for GI bleed Marleen Funk MD Time spent in the patient's overall evaluation,decision-making process, review of diagnostic data, adjustment of management, discussion with other providers, nursing nursing and ancillary staff involved in patient's care documentation, 30 minutes Charges/Coding Visit Charges Inpatient E&M: 52892 Subs Hosp L2
--- NOTE | 2022-10-08 10:17 | PCM.CONS.GEN ---
Assessment & Plan Assessment/Plan (1) Sepsis: PLAN: UA with heavy pyuria, denies any urinary complaints. Sacral wound with redness/tunneling, wound cx so far with strep and staph aureus. CXR clear. 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 Will continue vanc/zosyn. Cdiff (+) but toxin neg. Having melena with recent duodenal ulcer. Reviewed [facility] records. Low suspicion for active cdiff at this time, but will monitor while on abx here. Ok to d/c isolation. Will follow, thank you, d/w Dr. Major HPI Consult Data Date of Consult: 10/08/22 HPI Narrative Reason for Consultation: cdiff (+) HPI Narrative: NIKOLAS ADAMS, is a 72 M with h/o stroke, PAD, admit in 08/2022 to [facility] ICU for bleeding duodenal ulcer. Was treated for uti and bcx with staph hominis while there. Transferred to [facility] on 09/05. Admitted from ED 10/07 due to hypotension and diarrhea/melena at [facility]. Feeling fine, no complaints, no abx in past month, no abd pain, no n/v, no prior h/o cdiff. Admitted to icu on vanc/zosyn, cdiff (+) but toxin neg. Full ROS performed and neg except as noted above. 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 Peripheral vascular disease, unspecified Peripheral vascular occlusive disease Presbycusis of both ears Severe malnutrition Stenosis of right vertebral artery Tobacco dependence due to cigarettes Medical History unable to obtain Home Medications amlodipine 10 mg tablet 10 mg PO DAILY #30 tabs 08/19/20 [Rx Last Taken Unknown] atorvastatin 40 mg tablet 40 mg PO QHS #30 tabs 08/19/20 [Rx Last Taken Unknown] lisinopril 20 mg tablet 20 mg PO QHS 09/07/22 [History Last Taken Unknown] pantoprazole 40 mg tablet,delayed release 40 mg PO BID 09/07/22 [History Last Taken Unknown] sertraline 100 mg tablet 100 mg PO DAILY 09/07/22 [History Last Taken Unknown] tamsulosin 0.4 mg capsule 0.4 mg PO DAILY 09/07/22 [History Last Taken Unknown] albuterol sulfate 2.5 mg/3 mL (0.083 %) solution for nebulization 2.5 mg (3 mL) inhalation Q2H PRN PRN Dyspnea, wheezing #0 mL 09/10/22 [Rx Last Taken Unknown] arginine 7 gram-glutam 7 gram-CaHMB 1.5 [id number] oral pwd pkt (Alfonso (with collagen)) 1 packet PO BIDCM #0 ea 09/10/22 [Rx Last Taken Unknown] ascorbic acid (vitamin C) 500 mg tablet 500 mg PO TIDCM #0 tabs 09/10/22 [Rx Last Taken Unknown] bumetanide 0.5 mg tablet 0.5 mg PO BID #60 tabs 09/10/22 [Rx Last Taken Unknown] ferrous sulfate 300 mg (60 mg iron)/5 mL oral liquid 300 mg (5 mL) PO TIDCM #0 mL 09/10/22 [Rx Last Taken Unknown] guaifenesin 1,200 mg tablet, extended release 12 hr (Mucus Relief ER) 1,200 mg PO BID #0 tabs 09/10/22 [Rx Last Taken Unknown] ipratropium 0.5 mg-albuterol 3 mg (2.5 mg base)/3 mL nebulization soln 3 ml inhalation Q4HWA.RT #0 mL 09/10/22 [Rx Last Taken Unknown] cholecalciferol (vitamin D3) 50 mcg (2,000 unit) capsule 50 mcg PO DAILY 09/22/22 [History Last Taken Unknown] fluconazole 100 mg tablet 100 mg PO DAILY 09/22/22 [History Last Taken Unknown] multivitamin,tx-minerals 1 tab PO DAILY 09/22/22 [History Last Taken Unknown] Allergy/AdvReac Type Severity Reaction Status Date / Time No Known Allergies Allergy Verified 10/07/22 03:00 Family History Father Dementia Mother Dementia Social History household members: none Smoking Status: Current every day smoker tobacco type: cigarettes Tobacco: How many years used: 40 Electronic Cigarette Use: with nicotine second hand exposure: Yes alcohol intake: former year quit: 2020 substance use type: does not use caffeine: Yes (4 cups daily) Type: coffee seatbelt use: sometimes Physical Exam Const alert, oriented x3 and no apparent distress General Appearance: cooperative HEENT normocephalic and head/scalp atraumatic Eyes PERRL and EOMs intact bilaterally Neck supple and No nodes Resp normal air movement and clear to auscultation bilaterally Cardio regular rate and regular rhythm GI soft to palpation, non-tender and non-distended Extremity General Extremity: Negative for edema Skin Skin Narrative: Reviewed photos. Sacral wounds with surrounding redness. Dry gangrene on both feet Neuro CN's II-XII intact bilaterally Medical Records Data Medical Nutrition Assessment Dietitian: Malnutrition Criteria Met Start: 10/07/22 14:13 Freq: Status: Active Protocol: Document 10/07/22 14:13 (Rec: 10/07/22 14:13 [id number]) Nutrition Malnutrition Evidence of Malnutrition Exists Yes Malnutrition (severe): Chronic Evidenced By Suboptimal Energy Intake ( Severe),Weight Loss (Severe) Clinical Problem Acute Disease or Injury Related Malnutrition Etiology severe, acute malnutrition related to inadequate energy intake Signs/Symptoms as evidenced by unintentional wt loss of 19.4#/12% x 1 month ; estimated PO intake meeting <75% of estimated energy needs > 1 month Status Active Problem Recommendation Dietitian Recommendations/Changes recommend advance diet as tolerated to regular, texture/ consistency per FILTER FILLER; Alfonso BID for wound healing. Ensure Plus High Protein 120mL 4x/day w/ medpass when diet advanced Lab / Micro Data Attestation: I reviewed the patient's lab results. Result Diagrams: 10/08/22 04:20 10/08/22 04:20 Labs: Laboratory Results - last 24 hr 10/07/22 09:00: S.aureus Protein A PCR POSITIVE H, MRSA (PCR) POSITIVE H 10/07/22 09:25: Procalcitonin 0.17 H 10/07/22 14:20: Sodium 137, Potassium 2.2 L*, Chloride 105, Carbon Dioxide 29.0, Anion Gap 3 L, BUN 18, Creatinine 0.44 L, Estim Creat Clear Calc 61.88, Est GFR (MDRD) Af Amer 240, Est GFR (MDRD) Non-Af 199, BUN/Creatinine Ratio 40.6 H, Glucose 101, Calcium 7.1 L, Magnesium 1.6 10/07/22 14:20: Hgb 9.8 L 10/07/22 20:20: Sodium 136, Potassium 3.0 L, Chloride 105, Carbon Dioxide 27.0, Anion Gap 4 L, BUN 20 H, Creatinine 0.40 L, Estim Creat Clear Calc 61.88, Est GFR (MDRD) Af Amer 270, Est GFR (MDRD) Non-Af 223, BUN/Creatinine Ratio 49.9 H, Glucose 107 H, Calcium 7.5 L, Magnesium 2.0 10/07/22 20:20: Hgb 9.9 L 10/08/22 04:20: Hgb 8.9 L 10/08/22 04:20: Sodium 137, Potassium 3.2 L, Chloride 108 H, Carbon Dioxide 27.0, Anion Gap 2 L, BUN 17, Creatinine 0.32 L, Estim Creat Clear Calc 61.88, Est GFR (MDRD) Af Amer 345, Est GFR (MDRD) Non-Af 285, BUN/Creatinine Ratio 52.5 H, Glucose 103, Calcium 7.1 L, Magnesium 1.9, Total Bilirubin 0.50, AST 13 L, ALT 16, Alkaline Phosphatase 105, Total Protein 4.9 L, Albumin 1.4 L, Globulin 3.5, Albumin/Globulin Ratio 0.4 L Micro: Microbiology 10/07/22 09:00 Wound - Buttock Wound Culture - Preliminary Streptococcus pyogenes Staphylococcus aureus 10/07/22 08:50 Stool Enteric Bacteriology - Final 10/07/22 08:50 Stool C. difficile GDH Antigen & Toxins - Final 10/07/22 08:50 Stool C. difficile DNA Amplification - Final 10/07/22 08:55 Nasal Secretion SARS-CoV-2 & FLU Antigen (Rapid) - Final
--- NOTE | 2022-10-08 11:31 | CASEMGMT ---
Social Work Pt admitted from [facility] skilled level of care. Updated clinicals sent to [facility] and they are able to accept back when medically ready. SW attempted to meet with pt to confirm return to [facility]. Pt is currently at procedure. SW to follow up when pt is available. ELIZABETH Santos
[2022-10-08 11:58] LABS: Absolute Lymphocyte Count 0.52 X10^3/uL (0.83-4.51); Absolute Neutrophil Count 19.6 X10^3/uL (2.0-7.7); Basophil# 0.05 X10^3/uL; Basophil% 0.2 % (0-1); Eosinophil# 0.17 X10^3/uL; Eosinophils% 0.8 % (0-5); Hematocrit 27.4 % (40-54); Lymphocyte # 0.52 X10^3/ul (0.83-4.51); Lymphocyte % 2.4 % (19-41); Mean Corp Hgb Conc 32.8 g/dL (32-36); Mean Corpuscular Volume 88.4 fL (80-94); Mean Platelet Vol. 10.9 fl (6.2-12.0); Monocyte# 0.67 X10^3/uL; Monocyte% 3.2 % (0-10); NRBC Flagged by Analyzer 0 % (0-5); Neutrophil # 19.64 X10^3/uL (2.7-7.7); Neutrophil % 92.5 % (47-70); POSITIVE DIFFERENTIAL YES; Platelet Count 465 K/mm3 (150-450); RBC Distribution Width CV 16.2 % (11.6-14.6); RBC Distribution Width SD 52.5 fl (35.1-43.9); White Blood Count 21.2 K/mm3 (4.4-11.0)
[2022-10-08 12:04] LABS: Differential Indicated SCAN CRITERIA MET
--- NOTE | 2022-10-08 12:06 | OP.EGD_ITS ---
Patient Name: Matt Villaseñor Procedure Date: 10/08/2022 11:34 AM Date of : 1950 Age: 72 Procedure: Upper GI endoscopy Indications: Epigastric abdominal pain, Acute post hemorrhagic anemia, Dysphagia Providers: Baron Milton DO Referring MD: Marleen Funk Md Medicines: Monitored Anesthesia Care Patient Profile: This is a 72 year old male. Refer to note in patient chart for documentation of history and physical. Patient has symptoms of acute epigastric abdominal pain and dysphagia with both liquids and solids. Complications: No immediate complications. Procedure: Pre-Anesthesia Assessment: - Prior to the procedure, a History and Physical was performed, and patient medications and allergies were reviewed. The risks and benefits of the procedure and the sedation options and risks were discussed with the patient. All questions were answered and informed consent was obtained. Patient identification and proposed procedure were verified by the physician. Mental Status Examination: normal. Prophylactic Antibiotics: The patient does not require prophylactic antibiotics. Prior Anticoagulants: The patient has taken no previous anticoagulant or antiplatelet agents. After reviewing the risks and benefits, the patient was deemed in satisfactory condition to undergo the procedure. The anesthesia plan was to use monitored anesthesia care (MAC). Immediately prior to administration of medications, the patient was re-assessed for adequacy to receive sedatives. The heart rate, respiratory rate, oxygen saturations, blood pressure, adequacy of pulmonary ventilation, and response to care were monitored throughout the procedure. The physical status of the patient was re-assessed after the procedure. After obtaining informed consent, the endoscope was passed under direct vision. Throughout the procedure, the patient's blood pressure, pulse, and oxygen saturations were monitored continuously. The Endoscope was introduced through the mouth, and advanced to the second part of duodenum. The upper GI endoscopy was accomplished without difficulty. The patient tolerated the procedure well. Scope In: 11:46:31 AM Scope Out: 11:56:59 AM Total Procedure Duration Time 0 hours 10 minutes 28 seconds Findings: Severe esophagitis with bleeding was found 30 to 40 cm from the incisors. Biopsies were taken with a cold forceps for histology. Verification of patient identification for the specimen was done. Estimated blood loss was minimal. One benign-appearing, intrinsic stenosis was found 30 to 40 cm from the incisors. This stenosis was severe (stenosis; an endoscope cannot pass) and measured 2 mm (inner diameter) x 10 cm (in length). The stenosis was traversed after dilation. A TTS dilator was passed through the scope. Dilation with a 15-16.5-18 mm balloon dilator was performed to 15 mm. The dilation site was examined and showed moderate improvement in luminal narrowing. A small hiatal hernia was present. No other significant abnormalities were identified in a careful examination of the stomach. One oozing cratered duodenal ulcer with pigmented material was found in the duodenal bulb. The lesion was 6 mm in largest dimension. Area was successfully injected with 5 mL of a 1:10,000 solution of epinephrine for drug delivery. Estimated blood loss was minimal. Coagulation for hemostasis using heater probe was successful. Estimated blood loss was minimal. Impression: - Severe erosive esophagitis. Biopsied. - Benign-appearing esophageal stenosis. Dilated. - Small hiatal hernia. - One oozing duodenal ulcer with pigmented material. Injected. Treated with a heater probe. Recommendation: - [facility]. - Clear liquid diet. - Continue present medications. Procedure Code(s): --- Professional --- 20558, 59, Esophagogastroduodenoscopy, flexible, transoral; with control of bleeding, any method 06030, Esophagogastroduodenoscopy, flexible, transoral; with transendoscopic balloon dilation of esophagus (less than 30 mm diameter) 59360, 59, Esophagogastroduodenoscopy, flexible, transoral; with directed submucosal injection(s), any substance 95647, 59,51, Esophagogastroduodenoscopy, flexible, transoral; with biopsy, single or multiple CPT copyright 2017 [employer]. All rights reserved. The codes documented in this report are preliminary and upon referral nurse review may be revised to meet current compliance requirements. Baron Milton DO 10/08/2022 12:05:58 PM This report has been signed electronically. Number of Addenda: 0 Note Initiated On: 10/08/2022 11:34 AM
--- NOTE | 2022-10-08 12:07 | OP.CCLET_ITS ---
10/08/2022 Edmundo Hahn MD [address] [place] [address] Re : Upper GI endoscopy procedure for Matt Villaseñor Dear Dr. Hahn This procedure was performed on September. My impressions and recommendations are as follows: Impressions : - Severe erosive esophagitis. Biopsied. - Benign-appearing esophageal stenosis. Dilated. - Small hiatal hernia. - One oozing duodenal ulcer with pigmented material. Injected. Treated with a heater probe. Recommendations : - [facility]. - Clear liquid diet. - Continue present medications. My findings are described in the full procedure note, which is enclosed. If I can be of further assistance, please feel free to contact me at . Sincerely, Baron Milton, 10/08/2022 12:05:58 PM This report has been signed electronically.
[2022-10-08 12:22] LABS: Differential Comment SCANNED
[2022-10-08] MEDS: DAKIN'S SOL HALF STRENGTH (=0.25%) 1 APPLIC TOPICAL (12:46)
[2022-10-08] MEDS: Sertraline 100 MG Tablet PO (12:51)
[2022-10-08] MEDS: 0.9% Saline Lock 10 ML Syringe IV (14:18)
[2022-10-08 14:42] LABS: Anion Gap 4 (5-15); BUN 13 mg/dL (7-18); BUN/Creat Ratio 34.9 RATIO (10-20); Calcium,Total 7.5 mg/dL (8.5-10.1); Chloride 108 mmol/L (98-107); Creatinine, Serum 0.37 mg/dL (0.70-1.30); EST Glomerular Filtration Rate 242 mL/min (>60); Est Glom Filt Rate - Afr Amer 293 mL/min (>60); Estimated Creatinine Clearance 66.46 ml/min; Glucose 119 mg/dL (74-106); Potassium 3.5 mmol/L (3.5-5.1); Sodium Level 137 mmol/L (136-145)
[2022-10-08 14:54] LABS: Magnesium 1.6 mg/dL (1.6-2.6)
--- NOTE | 2022-10-08 15:24 | CASEMGMT ---
LETTY and LETTY House spoke with patient regarding discharge planning. Pt is from [facility]. Pt seemed uncertain whether he would be returning there. left for sister Eva to confirm plans. SW will follow up. Sasha España [employer], SURGICAL PROCESSOR
[2022-10-08] MEDS: Juven (unflavored) Packet 1 PACKET PO (15:54)
[2022-10-08] MEDS: Potassium Chloride Oral Tablet 20 MEQ 40 MEQ PO (15:54)
[2022-10-08] MEDS: Magnesium Sulfate 4gm/100mL 4 GM/100 ML IV.SOLN. IV (16:17)
[2022-10-08] MEDS: Atorvastatin Calcium 40 MG Tablet PO (21:13)
[2022-10-09] VITALS (24 sets, daily range): BP systolic 110–135; BP diastolic 54–84; PULSE 76–109; RESP 16–22; TEMP 36.5–38.1; O2SAT 83–100; BMI 22.3
--- NOTE | 2022-10-09 00:52 | NURSING ---
Pt requesting to remove bipap mask due to being uncomfortable and not being able to sleep. This RN explained the importance of wearing the bipap while pt is sleeping, pt verbalizes understanding but still wishes to remove mask. Bipap removed, pt placed on 5L NC. Pt wore bipap from 2200 to 0100.
[2022-10-09 04:13] LABS: Absolute Lymphocyte Count 0.81 X10^3/uL (0.83-4.51); Absolute Neutrophil Count 16.6 X10^3/uL (2.0-7.7); Basophil# 0.05 X10^3/uL; Basophil% 0.3 % (0-1); Eosinophil# 0.07 X10^3/uL; Eosinophils% 0.4 % (0-5); Hematocrit 28.2 % (40-54); Hemoglobin 9.1 g/dL (13.0-16.5); Lymphocyte # 0.81 X10^3/ul (0.83-4.51); Lymphocyte % 4.4 % (19-41); Mean Corp Hgb Conc 32.3 g/dL (32-36); Mean Corpuscular Hgb 28.9 pg (27.0-32.0); Mean Corpuscular Volume 89.5 fL (80-94); Mean Platelet Vol. 10.1 fl (6.2-12.0); Monocyte# 0.64 X10^3/uL; Monocyte% 3.5 % (0-10); NRBC Flagged by Analyzer 0 % (0-5); Neutrophil # 16.56 X10^3/uL (2.7-7.7); Platelet Count 460 K/mm3 (150-450); RBC Distribution Width CV 16.2 % (11.6-14.6); RBC Distribution Width SD 53.1 fl (35.1-43.9); Red Blood Count 3.15 M/mm3 (4.6-6.2); White Blood Count 18.4 K/mm3 (4.4-11.0)
[2022-10-09 04:30] LABS: ALB/GLOB Ratio 0.4 RATIO (0.9-2.4); AST(SGOT) 11 U/L (15-37); Alanine Aminotransfer ALT/SGPT 14 U/L (16-61); Albumin, Serum 1.5 g/dL (3.2-5.0); Alkaline Phosphatase 115 U/L (45-117); Anion Gap 3 (5-15); BUN 12 mg/dL (7-18); BUN/Creat Ratio 27.9 RATIO (10-20); Calcium,Total 7.6 mg/dL (8.5-10.1); Chloride 107 mmol/L (98-107); Creatinine, Serum 0.43 mg/dL (0.70-1.30); EST Glomerular Filtration Rate 206 mL/min (>60); Est Glom Filt Rate - Afr Amer 249 mL/min (>60); Estimated Creatinine Clearance 66.46 ml/min; Globulin 3.9 g/dL (2.2-4.2); Glucose 200 mg/dL (74-106); Potassium 3.4 mmol/L (3.5-5.1); Protein, Total 5.4 g/dL (6.4-8.2); Sodium Level 137 mmol/L (136-145)
[2022-10-09] MEDS: Potassium Chloride Oral Tablet 20 MEQ 40 MEQ PO (06:05)
[2022-10-09] MEDS: Furosemide 40 MG/4 ML Vial IV (06:24)
[2022-10-09] MEDS: Ipratropium/Albuterol Sulfate 3 ML AMPUL.NEB INHALATION ×4 (06:56→20:28)
--- NOTE | 2022-10-09 08:17 | PN.CC_ITS ---
Assessment & Plan Assessment/Plan (1) GI bleed: (2) Sepsis: PLAN: Plan RECOMMENDATIONS: 1. Aggressive electrolyte repletion 2. Wean oxygen as tolerated 3. Discontinuation of octreotide and Protonix per GI 4. Antibiotics per infectious disease 5. Diuresis as tolerated 6. Hold on additional fluid boluses. Pressors if necessary. 7. Hold baseline antihypertensive medications 8. Evaluated with speech therapy 9. Could consider transfer from the intensive care unit later today pending morning response IMPRESSIONS: 1. Sepsis Clinical suspicion for decubitus ulcers leading to coag-negative septicemia versus UTI. Patient does have a chronic Soto secondary to urinary retention and UA is suggestive of possible infection. Soto has been replaced. Other sources include decubitus ulcers. Patient does have C. difficile present, but no toxin. Will defer to infectious disease on antibiotics and coag negative staph. Patient is on empiric antibiotics at this time. Would still recommend pressors instead of fluid boluses given oxygenation status 2. GI bleed secondary to duodenal bulb ulcer Patient with recent admission to outside facility requiring 5 units of packed red blood cells and several clips after EGD with a duodenal bulb ulcer. Clinical suspicion for rebleeding given black stools. Hemoglobin is not significantly down from recent baseline, but patient was given 2 units of packed red blood cells. Duodenal ulcer still present, but did have intervention. Do ubt hemorrhagic shock leading to hypotension on presentation. 3. Type II NSTEMI/chronic systolic CHF Clinical suspicion for decreased perfusion secondary to problems 1 and 2. Patient is denying any chest pain at this time. We will continue with telemetry. Patient's last echocardiogram showed an EF of 40% with moderate ventricular dysfunction. We will attempt to challenge with diuretics. Continue to hold baseline antihypertensives. No heparin or anticoagulation secondary to problem #2. patient is at increased risk for arrhythmia secondary to hypokalemia and hypomagnesemia 4. Decubitus ulcers/history of CVA/hypertension/advanced age/urinary retention/debility Complicates care, management, recovery and prognosis. Wound care has been consulted. Please see wound note for measurements of wounds. Antihypertensives have been held secondary to problems 1 and 2. Soto has been replaced patient's albumin of 1.6 indicates a significant nutritional deficit. Subjective Subjective Patient did okay overnight. Patient remains on octreotide and Protonix drip. No pressors or fluid boluses have been required. Patient is requiring 5 to 6 L nasal cannula oxygen to maintain saturations with sleep. Nursing continues to report possible apneic episodes. Patient did have a coughing episode following potassium administration. Patient subsequently stated I always cough like this after drinking too fast. Objective Data Objective Data Blood culture positive for coag negative staph. Vital Signs: Vital Signs Temp Pulse Resp BP Pulse Ox O2 Del Method O2 Flow Rate 37.4 C H 107 H 20 H 135/68 H 98 Nasal Cannula 6 10/09/22 06:00 10/09/22 07:00 10/09/22 07:00 10/09/22 07:00 10/09/22 07:00 10/09/22 07:00 10/09/22 07:00 FiO2 40 10/09/22 00:00 Oxygen Flow Rate (L/min) 6 Oxygen Delivery Method Nasal Cannula Weight: 72.4 kg Body Mass Index (BMI) 22.3 Intake & Output: Intake and Output for Last 24 Hours 10/07/22 10/08/22 10/09/22 23:59 23:59 23:59 Intake Total 6303.33 / 6303.33 2038.33 / 2038.33 50 / 50 Output Total 1450 / 1450 1700 / 1700 1950 / 1950 Balance 4853.33 / 4853.33 338.33 / 338.33 -1900 / -1900 Medical Nutrition Assessment Dietitian: Malnutrition Criteria Met Start: 10/07/22 14:13 Freq: Status: Active Protocol: Document 10/07/22 14:13 AG (Rec: 10/07/22 14:13 [id number]) Nutrition Malnutrition Evidence of Malnutrition Exists Yes Malnutrition (severe): Chronic Evidenced By Suboptimal Energy Intake ( Severe),Weight Loss (Severe) Clinical Problem Acute Disease or Injury Related Malnutrition Etiology severe, acute malnutrition related to inadequate energy intake Signs/Symptoms as evidenced by unintentional wt loss of 19.4#/12% x 1 month ; estimated PO intake meeting <75% of estimated energy needs > 1 month Status Active Problem Recommendation Dietitian Recommendations/Changes recommend advance diet as tolerated to regular, texture/ consistency per EVS TECH; Alfonso BID for wound healing. Ensure Plus High Protein 120mL 4x/day w/ medpass when diet advanced Lab / Micro Data Attestation: I reviewed the patient's lab results. Result Diagrams: 10/09/22 04:05 10/09/22 04:05 Labs: Laboratory Results - last 24 hr 10/07/22 09:00: S.aureus Protein A PCR POSITIVE H, MRSA (PCR) POSITIVE H 10/08/22 04:20: WBC Cancelled, Corrected WBC Cancelled, RBC Cancelled, Hgb Cancelled, Hct Cancelled, MCV Cancelled, MCH Cancelled, MCHC Cancelled, RDW Std Deviation Cancelled, RDW Coeff of Luis Cancelled, Plt Count Cancelled, MPV Cancelled, Immature Gran % (Auto) Cancelled, Neut % (Auto) Cancelled, Lymph % (Auto) Cancelled, [place] % (Auto) Cancelled, Eos % (Auto) Cancelled, Baso % (Auto) Cancelled, Absolute Neuts (auto) Cancelled, Absolute Lymphs (auto) Cancelled, Total Counted Cancelled, Neutrophils % (Manual) Cancelled, Band Neutrophils % Cancelled, Lymphocytes % (Manual) Cancelled, Monocytes % (Manual) Cancelled, Eosinophils % (Manual) Cancelled, Basophils % (Manual) Cancelled, Metamyelocytes % Cancelled, Myelocytes % Cancelled, Promyelocytes % Cancelled, Blast Cells % Cancelled, Plasma Cell % (Manual) Cancelled, Other Cells % Cancelled, Nucleated RBC % Cancelled, Nucleated RBCs/100 WBC Cancelled, Differential Comment Cancelled, Diff Path Review Cancelled, Hypersegmented Neuts Cancelled, Atypical Lymphocytes Cancelled, Reactive Lymphocytes Cancelled, Smudge Cells Cancelled, Toxic Granulation Cancelled, Toxic Vacuolation Cancelled, Dohle Bodies Cancelled, Catherine Rods Cancelled, Platelet Estimate Cancelled, Plt Morphology Comment Cancelled, RBC Morphology Cancelled, Polychromasia Cancelled, Hypochromasia Cancelled, Poikilocytosis Cancelled, Basophilic Stippling Cancelled, Anisocytosis Cancelled, Microcytosis Cancelled, Macrocytosis Cancelled, Spherocytes Cancelled, Sickle Cells Cancelled, Target Cells Cancelled, Tear Drop Cells Cancelled, Ovalocytes Cancelled, Stomatocytes Cancelled, Goodwin-[place] Bodies Cancelled, [place] Cells Cancelled, Bite Cells Cancelled, Crenated Cell Cancelled, Acanthocytes (Spur) Cancelled, Rouleaux Ca ncelled, Schistocytes Cancelled 10/08/22 04:20: WBC 21.2 H, RBC 3.10 L, Hgb 8.9 L, Hct 27.4 L, MCV 88.4, MCH 29.0, MCHC 32.8, RDW Std Deviation 52.5 H, RDW Coeff of Luis 16.2 H, Plt Count 465 H, MPV 10.9, Immature Gran % (Auto) 0.900, Neut % (Auto) 92.5 H, Lymph % (Auto) 2.4 L, [place] % (Auto) 3.2, Eos % (Auto) 0.8, Baso % (Auto) 0.2, Absolute Neuts (auto) 19.6 H, Absolute Lymphs (auto) 0.52 L, Nucleated RBC % 0, Differential Comment SCANNED 10/08/22 14:10: Sodium 137, Potassium 3.5, Chloride 108 H, Carbon Dioxide 25.0, Anion Gap 4 L, BUN 13, Creatinine 0.37 L, Estim Creat Clear Calc 66.46, Est GFR (MDRD) Af Amer 293, Est GFR (MDRD) Non-Af 242, BUN/Creatinine Ratio 34.9 H, Glucose 119 H, Calcium 7.5 L 10/08/22 14:10: Magnesium 1.6 10/09/22 04:05: WBC 18.4 H, RBC 3.15 L, Hgb 9.1 L, Hct 28.2 L, MCV 89.5, MCH 28.9, MCHC 32.3, RDW Std Deviation 53.1 H, RDW Coeff of Luis 16.2 H, Plt Count 460 H, MPV 10.1, Immature Gran % (Auto) 1.400 H, Neut % (Auto) 90.0 H, Lymph % (Auto) 4.4 L, [place] % (Auto) 3.5, Eos % (Auto) 0.4, Baso % (Auto) 0.3, Absolute Neuts (auto) 16.6 H, Absolute Lymphs (auto) 0.81 L, Nucleated RBC % 0 10/09/22 04:05: Sodium 137, Potassium 3.4 L, Chloride 107, Carbon Dioxide 27.0, Anion Gap 3 L, BUN 12, Creatinine 0.43 L, Estim Creat Clear Calc 66.46, Est GFR (MDRD) Af Amer 249, Est GFR (MDRD) Non-Af 206, BUN/Creatinine Ratio 27.9 H, Glucose 200 H, Calcium 7.6 L, Magnesium 2.0, Total Bilirubin 0.50, AST 11 L, ALT 14 L, Alkaline Phosphatase 115, Total Protein 5.4 L, Albumin 1.5 L, Globulin 3.9, Albumin/Globulin Ratio 0.4 L Micro: Microbiology 10/07/22 03:23 Blood Culture (Wb) - Left Wrist Bacteria Detection (PCR) - Final Coag Negative Staph 10/07/22 03:23 Blood Culture (Wb) - Left Wrist Blood Culture - Preliminary 10/07/22 09:00 Wound - Buttock Gram Stain - Final 10/07/22 09:00 Wound - Buttock Wound Culture - Preliminary Streptococcus pyogenes Staphylococcus aureus 10/07/22 03:50 Urine, Catheterized Urine Culture - Preliminary 10/07/22 08:50 Stool Enteric Bacteriology - Final 10/07/22 08:50 Stool C. difficile GDH Antigen & Toxins - Final 10/07/22 08:50 Stool C. difficile DNA Amplification - Final 10/07/22 08:55 Nasal Secretion SARS-CoV-2 & FLU Antigen (Rapid) - Final 10/07/22 03:15 Stool Stool Occult Blood (IVMAL) - Final Occult Blood Positive Physical Exam Const alert and no apparent distress Constitutional Narrative: Appears older than stated age. No active retching noted. General Appearance: cooperative, comfortable and well developed HEENT normocephalic, head/scalp atraumatic and moist oral mucous membranes; Negative for hearing grossly normal bilaterally Eyes PERRL and EOMs intact bilaterally; Negative for conjunctivae normal Eyes Narrative: Conjunctiva are pale bilaterally, no scleral icterus Neck no lymphadenopathy and supple Neck Narrative: Trachea midline, no thyroid enlargement Resp normal respiratory effort, no retractions, no use of accessory muscles and clear to auscultation bilaterally Auscultation: diminished lung sounds diffuse; Negative for rales, rhonchi or wheezes Cardio regular rate, regular rhythm, S1 normal heart sound, S2 normal heart sound, no murmurs, no rub, no gallops and no clicks GI normal to inspection, nondistended, normoactive bowel sounds, soft to palpation and non-tender Extremity no clubbing, cyanosis or edema Extremity Narrative: Markedly diminished pedal pulses bilaterally with delayed cap refill Skin No no rashes or lesions noted, No no wounds, skin turgor normal, no jaundice, no petechiae and no mottling Skin Narrative: Significant vascular appearing wounds on the dorsum of the right foot and later al aspect of the right leg, small wound left heel. Coccyx not examined Neuro oriented x3, CN's II-XII intact bilaterally, moves all extremities, no focal motor deficits and no sensory deficits noted Neuro Narrative: Significant generalized weakness Psych cooperative Psych Narrative: eye contact is good Mood & Affect: flat affect Charges/Coding Visit Charges Inpatient E&M: 75338 Subs Hosp L3
[2022-10-09] MEDS: Potassium Chloride 10mEq/100mL 10 MEQ/100 ML IV.SOLN. 100 MEQ IV BOLUS ×4 (08:56→12:12)
--- NOTE | 2022-10-09 09:05 | PN.HOSP_ITS ---
Reason for Visit Reason for Visit: Diagnoses Sepsis, unspecified organism (10/07/22) Anemia, unspecified (10/07/22) Unspecified severe protein-calorie malnutrition (10/07/22) Peripheral vascular disease, unspecified (10/07/22) Pneumonia, unspecified organism (10/07/22) Acute respiratory failure with hypoxia (10/07/22) Gastrointestinal hemorrhage, unspecified (10/07/22) Non-pressure chronic ulcer of other part of right foot with necrosis of muscle (10/07/22) Dysphagia, unspecified (10/07/22) Subjective Subjective Had a coughing up soda earlier with some oral potassium, speech consulted. Patient requiring roughly 5 L to maintain O2 sats. Denies shortness of breath or other complaints Objective Data Objective Data Vital Signs: Vital Signs Temp Pulse Resp BP Pulse Ox O2 Del Method O2 Flow Rate 99.0 F 100 19 H 110/68 91 Nasal Cannula 6 10/09/22 08:00 10/09/22 08:00 10/09/22 08:00 10/09/22 08:00 10/09/22 08:00 10/09/22 08:00 10/09/22 08:00 FiO2 40 10/09/22 00:00 Oxygen Flow Rate (L/min) 6 Oxygen Delivery Method Nasal Cannula Weight: 72.4 kg Body Mass Index (BMI) 22.3 Intake & Output: Intake and Output for Last 24 Hours 10/07/22 10/08/22 10/09/22 23:59 23:59 23:59 Intake Total 6303.33 / 6303.33 2038.33 / 2038.33 150 / 150 Output Total 1450 / 1450 1700 / 1700 1950 / 1950 Balance 4853.33 / 4853.33 338.33 / 338.33 -1800 / -1800 Medical Nutrition Assessment Dietitian: Malnutrition Criteria Met Start: 10/07/22 14:13 Freq: Status: Active Protocol: Document 10/07/22 14:13 AG (Rec: 10/07/22 14:13 AG [id number]) Nutrition Malnutrition Evidence of Malnutrition Exists Yes Malnutrition (severe): Chronic Evidenced By Suboptimal Energy Intake ( Severe),Weight Loss (Severe) Clinical Problem Acute Disease or Injury Related Malnutrition Etiology severe, acute malnutrition related to inadequate energy intake Signs/Symptoms as evidenced by unintentional wt loss of 19.4#/12% x 1 month ; estimated PO intake meeting <75% of estimated energy needs > 1 month Status Active Problem Recommendation Dietitian Recommendations/Changes recommend advance diet as tolerated to regular, texture/ consistency per BRICK LAYER; Alfonso BID for wound healing. Ensure Plus High Protein 120mL 4x/day w/ medpass when diet advanced Lab / Micro Data Result Diagrams: 10/09/22 04:05 10/09/22 04:05 Labs: Laboratory Results - last 24 hr 10/07/22 09:00: S.aureus Protein A PCR POSITIVE H, MRSA (PCR) POSITIVE H 10/08/22 04:20: WBC Cancelled, Corrected WBC Cancelled, RBC Cancelled, Hgb Cancelled, Hct Cancelled, MCV Cancelled, MCH Cancelled, MCHC Cancelled, RDW Std Deviation Cancelled, RDW Coeff of Luis Cancelled, Plt Count Cancelled, MPV Cancelled, Immature Gran % (Auto) Cancelled, Neut % (Auto) Cancelled, Lymph % (Auto) Cancelled, [place] % (Auto) Cancelled, Eos % (Auto) Cancelled, Baso % (Auto) Cancelled, Absolute Neuts (auto) Cancelled, Absolute Lymphs (auto) Cancelled, Total Counted Cancelled, Neutrophils % (Manual) Cancelled, Band Neutrophils % Cancelled, Lymphocytes % (Manual) Cancelled, Monocytes % (Manual) Cancelled, Eosinophils % (Manual) Cancelled, Basophils % (Manual) Cancelled, Metamyelocytes % Cancelled, Myelocytes % Cancelled, Promyelocytes % Cancelled, Blast Cells % Cancelled, Plasma Cell % (Manual) Cancelled, Other Cells % Cancelled, Nucleated RBC % Cancelled, Nucleated RBCs/100 WBC Cancelled, Differential Comment Cancelled, Diff Path Review Cancelled, Hypersegmented Neuts Cancelled, Atypical Lymphocytes Cancelled, Reactive Lymphocytes Cancelled, Smudge Cells Cancelled, Toxic Granulation Cancelled, Toxic Vacuolation Cancelled, Dohle Bodies Cancelled, Catherine Rods Cancelled, Platelet Estimate Cancelled, Plt Morphology Comment Cancelled, RBC Morphology Cancelled, Polychromasia Cancelled, Hypochromasia Cancelled, Poikilocytosis Cancelled, Basophilic Stippling Cancelled, Anisocytosis Cancelled, Microcytosis Cancelled, Macrocytosis Cancelled, Spherocytes Cancelled, Sickle Cells Cancelled, Target Cells Cancelled, Tear Drop Cells Cancelled, Ovalocytes Cancelled, Stomatocytes Cancelled, [place] Bodies Cancelled, [place] Cells Cancelled, Bite Cells Cancelled, Crenated Cell Cancelled, Acanthocytes (Spur) Cancelled, Rouleaux Cancelled, Schistocytes Cancelled 10/08/22 04:20: WBC 21.2 H, RBC 3.10 L, Hgb 8.9 L, Hct 27.4 L, MCV 88.4, MCH 29.0, MCHC 32.8, RDW Std Deviation 52.5 H, RDW Coeff of Luis 16.2 H, Plt Count 465 H, MPV 10.9, Immature Gran % (Auto) 0.900, Neut % (Auto) 92.5 H, Lymph % (Auto) 2.4 L, [place] % (Auto) 3.2, Eos % (Auto) 0.8, Baso % (Auto) 0.2, Absolute Neuts (auto) 19.6 H, Absolute Lymphs (auto) 0.52 L, Nucleated RBC % 0, Differential Comment SCANNED 10/08/22 14:10: Sodium 137, Potassium 3.5, Chloride 108 H, Carbon Dioxide 25.0, Anion Gap 4 L, BUN 13, Creatinine 0.37 L, Estim Creat Clear Calc 66.46, Est GFR (MDRD) Af Amer 293, Est GFR (MDRD) Non-Af 242, BUN/Creatinine Ratio 34.9 H, Glucose 119 H, Calcium 7.5 L 10/08/22 14:10: Magnesium 1.6 10/09/22 04:05: WBC 18.4 H, RBC 3.15 L, Hgb 9.1 L, Hct 28.2 L, MCV 89.5, MCH 28.9, MCHC 32.3, RDW Std Deviation 53.1 H, RDW Coeff of Luis 16.2 H, Plt Count 460 H, MPV 10.1, Immature Gran % (Auto) 1.400 H, Neut % (Auto) 90.0 H, Lymph % (Auto) 4.4 L, [place] % (Auto) 3.5, Eos % (Auto) 0.4, Baso % (Auto) 0.3, Absolute Neuts (auto) 16.6 H, Absolute Lymphs (auto) 0.81 L, Nucleated RBC % 0 04/14/23 04:05: Sodium 137, Potassium 3.4 L, Chloride 107, Carbon Dioxide 27.0, Anion Gap 3 L, BUN 12, Creatinine 0.43 L, Estim Creat Clear Calc 66.46, Est GFR (MDRD) Af Amer 249, Est GFR (MDRD) Non-Af 206, BUN/Creatinine Ratio 27.9 H, Glucose 200 H, Calcium 7.6 L, Magnesium 2.0, Total Bilirubin 0.50, AST 11 L, ALT 14 L, Alkaline Phosphatase 115, Total Protein 5.4 L, Albumin 1.5 L, Globulin 3.9, Albumin/Globulin Ratio 0.4 L Micro: Microbiology 10/07/22 09:00 Wound - Buttock Gram Stain - Final 10/07/22 09:00 Wound - Buttock Wound Culture - Preliminary Streptococcus pyogenes Staphylococcus aureus 10/07/22 03:45 Blood Culture (Wb) - Left Wrist Blood Culture - Preliminary 10/07/22 03:23 Blood Culture (Wb) - Left Wrist Bacteria Detection (PCR) - Final Coag Negative Staph 10/07/22 03:23 Blood Culture (Wb) - Left Wrist Blood Culture - Preliminary 10/07/22 03:50 Urine, Catheterized Urine Culture - Preliminary 10/07/22 08:50 Stool Enteric Bacteriology - Final 10/07/22 08:50 Stool C. difficile GDH Antigen & Toxins - Final 10/07/22 08:50 Stool C. difficile DNA Amplification - Final 10/07/22 08:55 Nasal Secretion SARS-CoV-2 & FLU Antigen (Rapid) - Final 10/07/22 03:15 Stool Stool Occult Blood (VIMAL) - Final Occult Blood Positive Physical Exam Narrative General: Awake, answers questions appropriately HEENT: Atraumatic, nose is somewhat depressed and towards the right same as previous Eyes: Anicteric, normal conjunctiva, extraocular movements grossly intact Neck: Supple Respiratory: No wheezes or rhonchi, normal respiratory effort Cardiovascular: Regular rhythm, heart rate roughly 100 GI: Soft, nontender, nondistended Extremities: No edema Musculoskeletal: Moving all extremities Neuro: No overt focal neurological deficits Skin: Bilateral lower extremities wrapped Psych: Cooperative Assessment & Plan Assessment/Plan (1) GI bleed: PLAN: Plan #Sepsis, unclear source, decubitus ulcers versus UTI * -unclear source, has had Estrada and UA did show bacteria, leuk esterase, white blood cells but unclear if colonized or when it was last changed, will need to explore this further. * -CT abdomen pelvis with multiple dilated small bowel loops up to 2.4 cm in diameter scattered throughout the abdomen without a clear-cut transition point which per report may be due to ileus or gastroenteritis. Mild wall thickening in the urinary bladder unchanged and may be due to muscular hypertrophy or c ystitis. Additionally moderate rectal fecal impaction which is slightly decreased compared to previous, moderate atelectasis of right lung base * -Enteric panel ordered * -Chest x-ray no acute abnormality * -Does have foot wounds and buttock ulcer, foot x-ray with osteopenia of the heads of the fifth metatarsals bilaterally which may be severe osteopenia but cannot rule out osteomyelitis at this time, if not improving or if increase suspicion will need further imaging and podiatry consult, wound care consulted * -BP marginal despite fluid resuscitation with intermittent low-grade tachycardia in ED and patient currently receiving 2 units packed red blood cells but given that he is improving do not feel he needs norepinephrine at this time but has high risk for decompensation and is being admitted to ICU * -Consult food trades assistants * -White blood cell count 28.6 with left shift * -Heart rate greater than 90, INR 1.5, initial lactic acid 2.3, elevated troponin * -Cultures pending * -Treated broad-spectrum with vancomycin and Zosyn * -Appears to have been given 2.5 L of fluids in the ED which is appropriate for his weight. Most recent echo on 10/02 showed an EF of 40% with moderate ventricular dysfunction and he does take diuretics at home, will hold diuretics and monitor respiratory status and BP, low threshold for further fluids -10/08: Doing better today, C. difficile present in stool but no toxin, infectious disease consulted. Wound culture of right upper buttock wound with strep pyogenes and Staph aureus with sensitivities pending. Urine and blood cultures pending, remains on broad-spectrum antibiotics. -10/08: 1 out of 2 blood cultures positive coag negative staph, second blood culture positive for gram-positive cocci, further speciation pending. Wound with strep pyogenes and Staph aureus. ID consulted. Remains on vancomycin and Zosyn. #Concern for GI bleed * -Hx of duodenal bulb ulcer and GIB admitted to [facility] last month with hemorrhagic shock requiring 5u prbc. Had several clips during EEG * -Had black stools at [facility] and was also observed here in ED, hgb 8.9 with value of 8.4 on 09/18/1292 but stool occult was positive even though it was negative last admission and given his hypotension and tachycardia there is concern that labs had not yet reflected blood loss * -2uprbc given in ED * -Trend H&H * -PPI drip * -GI consulted * -ortho stats ordered * -Reticulocyte count as well as iron panel, instructions for only add on since pt is receiving blood -10/08: EGD today with severe erosive esophagitis which was biopsied, benign- appearing esophageal stenosis which was dilated and an oozing duodenal ulcer with pigmented material which was injected and treated with heater probe. Clear liquid diet recommended. Hemoglobin is slightly down today but appears similar to baseline with no new overt bleeding noted. We will continue to trend -10/08: On octreotide and Protonix, discontinuation per GI. Hemoglobin stable #NSTEMI type II -EKG reported sinus tac w/ LAD, qtc 497 -Denied chest pain -Will continue to trend though low suspicion for type one, highly suspect it is 2/2 above -10/08: Troponin peaked at 261 and then down trended to 246, have amended diagnosis to type II NSTEMI #Hypokalemia, hypomagnesemia -Replace and will recheck -10/08: Continue repletion of lytes #Urinary retention -Was d/c'd with estrada catheter d/t retention w/ instructions to f/u outpt w/ Dr. Junie jasmine -10/08: Estrada replaced in ICU upon admission #Atherosclerosis of extremities w/ ulceration -Last admission had CTA with severe diffuse atherosclerotic stenosis notably of bilateral iliac and femoral arteries -Patient was not a good candidate for intervention at that time it was r ecommended to follow-up outpatient with outpatient stress test prior to intervention -Wound care consult -Continue statin -Cont alfonso for wound healing #Hx cva 08/01/20 -cont statin #hx hypertension -Holding bp meds d/t hypotension #DVT ppx: SCDs Marleen Funk MD Time spent in the patient's overall evaluation,decision-making process, review of diagnostic data, adjustment of management, discussion with other providers, nursing nursing and ancillary staff involved in patient's care documentation, 30 minutes Charges/Coding Visit Charges Inpatient E&M: 60478 Subs Hosp L2
[2022-10-09] MEDS: DAKIN'S SOL HALF STRENGTH (=0.25%) 1 APPLIC TOPICAL (09:33)
--- NOTE | 2022-10-09 11:02 | PCM.RX.CS ---
Consult Pharmacy has been consulted to manage selected antiobiotic: Vancomycin Type of Consult: Follow-up Prior Doses of Antibiotics Received/Current Regimen: 1250MG IV Q12H Labs: Sodium 137 mmol/L (136-145) 10/09/22 04:05 Potassium 3.4 mmol/L (3.5-5.1) L 10/09/22 04:05 Chloride 107 mmol/L (98-107) 10/09/22 04:05 Carbon Dioxide 27.0 mmol/L (21.0-32.0) 10/09/22 04:05 Anion Gap 3 (5-15) L 10/09/22 04:05 BUN 12 mg/dL (7-18) 10/09/22 04:05 Creatinine 0.43 mg/dL (0.70-1.30) L 10/09/22 04:05 Est GFR (MDRD) Af Amer 249 mL/min (>60) 10/09/22 04:05 Est GFR (MDRD) Non-Af 206 mL/min (>60) 10/09/22 04:05 BUN/Creatinine Ratio 27.9 RATIO (10-20) H 10/09/22 04:05 Glucose 200 mg/dL (74-106) H 10/09/22 04:05 Vancomycin Trough 17.0 ug/mL (5.0-15.0) H 10/09/22 09:43 Microbiology: Microbiology 10/07/22 03:50 Urine, Catheterized Urine Culture - Preliminary Yeast Staphylococcus aureus 10/07/22 09:00 Wound - Buttock Gram Stain - Final 10/07/22 09:00 Wound - Buttock Wound Culture - Preliminary Streptococcus pyogenes Staphylococcus aureus 10/07/22 03:45 Blood Culture (Wb) - Left Wrist Blood Culture - Preliminary 10/07/22 03:23 Blood Culture (Wb) - Left Wrist Bacteria Detection (PCR) - Final Coag Negative Staph 10/07/22 03:23 Blood Culture (Wb) - Left Wrist Blood Culture - Preliminary 10/07/22 08:50 Stool Enteric Bacteriology - Final 10/07/22 08:50 Stool C. difficile GDH Antigen & Toxins - Final 10/07/22 08:50 Stool C. difficile DNA Amplification - Final 10/07/22 08:55 Nasal Secretion SARS-CoV-2 & FLU Antigen (Rapid) - Final 10/07/22 03:15 Stool Stool Occult Blood (VIMAL) - Final Occult Blood Positive Weight used for dosin.4 kg Estimated Creatinine Clearance: 65 ml/min Goal Trough: 15-20 mcg/mL Pharmacy Plan for Drug Dosing: Trough today 17.0 was in therapeutic range of 15-20mcg/ml. Will continue same dose. New trough ordered for before another 4th dose per policy. Pharmacy Service will continue to monitor and adjust dosing as required. Follow-Up Labs: Trough Vancomycin - 4.15.23 @2130 before 2200 dose
--- NOTE | 2022-10-09 12:15 | CASEMGMT ---
Social Work SW spoke w/pt and pt's sister Ismael in the room. Pt is very hard of hearing. SW spoke w/both of them about the discharge plan. They would like for pt to go to TCU rather than [facility] at discharge. As per Eva, pt was in TCU in 2019. Pt also agreeable to TCU. SW offered if TCU cannot take pt, SW will give them a list of fpc facilities in the area via [employer]. Pt's sister declined list, pt and sister agreeable to return to [facility] if TCU cannot take pt. SW called TCU, spoke w/Lisa. She is not sure about beds, will look at pt Wednesday as it is anticipated pt will be here through the weekend. SW let pt and pt's sister know this, SW to follow up w/TCU and pt and pt's sister on Wednesday. DIANA Rios
--- NOTE | 2022-10-09 13:04 | PCM.PROGNOTE ---
Subjective Subjective Patient underwent upper endoscopy yesterday for an upper GI bleed and was discovered to have duodenal bleed. Objective Data Objective Data Vital Signs: Vital Signs Temp Pulse Resp BP Pulse Ox O2 Del Method O2 Flow Rate 99.7 F H 102 H 20 H 127/71 H 95 Nasal Cannula 6 10/09/22 12:00 10/09/22 12:00 10/09/22 12:00 10/09/22 12:00 10/09/22 12:00 10/09/22 12:00 10/09/22 12:00 FiO2 40 10/09/22 00:00 Oxygen Flow Rate (L/min) 6 Oxygen Delivery Method Nasal Cannula Weight: 159 lb 9.835 oz Body Mass Index (BMI) 22.3 Intake & Output: Intake and Output for Last 24 Hours 10/07/22 10/08/22 10/09/22 23:59 23:59 23:59 Intake Total 6303.33 / 6303.33 2038.33 / 2038.33 1141.25 / 1141.25 Output Total 1450 / 1450 1700 / 1700 2900 / 2900 Balance 4853.33 / 4853.33 338.33 / 338.33 -1758.75 / -1758.75 Medical Nutrition Assessment Dietitian: Malnutrition Criteria Met Start: 10/07/22 14:13 Freq: Status: Active Protocol: Document 10/09/22 09:32 GEORGE (Rec: 10/09/22 09:32 GEORGE [id number]) Nutrition Malnutrition Evidence of Malnutrition Exists Yes Malnutrition (severe): Chronic Evidenced By Suboptimal Energy Intake ( Severe),Weight Loss (Severe) Intake Problem Increased Nutrient Needs (specify) Etiology protein needs related to skin status Signs/Symptoms as evidenced by PI love heels and R buttock/sacrum - followed by wound nurse; on Alfonso bid Status Active Problem Clinical Problem Acute Disease or Injury Related Malnutrition Etiology severe, acute malnutrition related to inadequate energy intake Signs/Symptoms as evidenced by unintentional wt loss of 19.4#/12% x 1 month ; estimated PO intake meeting <75% of estimated energy needs > 1 month Status Active Problem Recommendation Dietitian Recommendations/Changes recommend advance diet as tolerated to regular, - texture /consistency per [employer]; Ensure Plus High Protein 120mL 4x/day w/ medpass when diet advanced Alfonso BID for wound healing. Lab / Micro Data Result Diagrams: 10/09/22 04:05 10/09/22 04:05 Labs: Laboratory Results - last 24 hr 10/08/22 14:10: Sodium 137, Potassium 3.5, Chloride 108 H, Carbon Dioxide 25.0, Anion Gap 4 L, BUN 13, Creatinine 0.37 L, Estim Creat Clear Calc 66.46, Est GFR (MDRD) Af Amer 293, Est GFR (MDRD) Non-Af 242, BUN/Creatinine Ratio 34.9 H, Glucose 119 H, Calcium 7.5 L 10/08/22 14:10: Magnesium 1.6 10/09/22 04:05: WBC 18.4 H, RBC 3.15 L, Hgb 9.1 L, Hct 28.2 L, MCV 89.5, MCH 28.9, MCHC 32.3, RDW Std Deviation 53.1 H, RDW Coeff of Luis 16.2 H, Plt Count 460 H, MPV 10.1, Immature Gran % (Auto) 1.400 H, Neut % (Auto) 90.0 H, Lymph % (Auto) 4.4 L, [place]oke % (Auto) 3.5, Eos % (Auto) 0.4, Baso % (Auto) 0.3, Absolute Neuts (auto) 16.6 H, Absolute Lymphs (auto) 0.81 L, Nucleated RBC % 0 10/09/22 04:05: Sodium 137, Potassium 3.4 L, Chloride 107, Carbon Dioxide 27.0, Anion Gap 3 L, BUN 12, Creatinine 0.43 L, Estim Creat Clear Calc 66.46, Est GFR (MDRD) Af Amer 249, Est GFR (MDRD) Non-Af 206, BUN/Creatinine Ratio 27.9 H, Glucose 200 H, Calcium 7.6 L, Magnesium 2.0, Total Bilirubin 0.50, AST 11 L, ALT 14 L, Alkaline Phosphatase 115, Total Protein 5.4 L, Albumin 1.5 L, Globulin 3.9, Albumin/Globulin Ratio 0.4 L 10/09/22 09:43: Vancomycin Trough 17.0 H Micro: Microbiology 10/07/22 03:50 Urine, Catheterized Urine Culture - Preliminary Yeast Staphylococcus aureus 10/07/22 09:00 Wound - Buttock Gram Stain - Final 10/07/22 09:00 Wound - Buttock Wound Culture - Preliminary Streptococcus pyogenes Staphylococcus aureus 10/07/22 03:45 Blood Culture (Wb) - Left Wrist Blood Culture - Preliminary 10/07/22 03:23 Blood Culture (Wb) - Left Wrist Bacteria Detection (PCR) - Final Coag Negative Staph 10/07/22 03:23 Blood Culture (Wb) - Left Wrist Blood Culture - Preliminary 10/07/22 08:50 Stool Enteric Bacteriology - Final 10/07/22 08:50 Stool C. difficile GDH Antigen & Toxins - Final 10/07/22 08:50 Stool C. difficile DNA Amplification - Final 10/07/22 08:55 Nasal Secretion SARS-CoV-2 & FLU Antigen (Rapid) - Final 10/07/22 03:15 Stool Stool Occult Blood (VIMAL) - Final Occult Blood Positive Physical Exam Narrative General: Awake, answers questions appropriately HEENT: Atraumatic, nose is somewhat depressed and towards the right same as previous Eyes: Anicteric, normal conjunctiva, extraocular movements grossly intact Neck: Supple Respiratory: No wheezes or rhonchi, normal respiratory effort Cardiovascular: Regular rhythm, heart rate roughly 100 GI: Soft, nontender, nondistended Extremities: No edema Musculoskeletal: Moving all extremities Neuro: No overt focal neurological deficits Skin: Bilateral lower extremities wrapped Psych: Cooperative Assessment & Plan Assessment/Plan (1) Acute respiratory failure with hypoxia: (2) Sepsis: (3) Peripheral vascular disease, unspecified: (4) Non-pressure chronic ulcer of other part of right foot with necrosis of muscle: (5) HCAP (healthcare-associated pneumonia): (6) Anemia: (7) Severe malnutrition: (8) Dysphagia: PLAN: Plan Possible sepsis -Patient meets sepsis criteria with 2 SIRS criteria plus source He is being managed by hospitalist services and lens blocker. Severe malnutrition -He will likely need supplementation Recent GI bleed secondary to duodenal ulcer -Patient anemic and hemoglobin dropped then came back up. -Did require 5 units transfusion during that hospitalization -EGD performed and showed duodenal ulcer that required clipping -Continue PPI 40 mg p.o. twice daily -Hemoglobin at discharge from [facility] was 8.6 -repeat CBC in a.m. -N.p.o. past midnight for EGD in the morning.
--- NOTE | 2022-10-09 13:07 | PCM.PN.ID ---
Physical Exam Narrative Had EGD done. Feeling better, no fever, no abd pain. Const alert and no apparent distress General Appearance: cooperative Resp normal air movement and clear to auscultation bilaterally Cardio regular rate and regular rhythm GI soft to palpation, non-tender and non-distended Skin Skin Narrative: no new rash ID ID: Route of nutrition/ use of supplements: [] Nutritional Intake: [] IV Site: [] Soto Catheter: [] Assessment & Plan Assessment/Plan (1) Sepsis: PLAN: UA with heavy pyuria, denies any urinary complaints. Sacral wound with redness/tunneling, wound cx so far with strep and staph aureus. CXR clear. 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 Will continue vanc/zosyn. Cdiff (+) but toxin neg. Having melena with recent duodenal ulcer. Low suspicion for active cdiff at this time, but will monitor while on abx here. Will follow
[2022-10-09] MEDS: Juven (unflavored) Packet 1 PACKET PO (17:00)
[2022-10-09] MEDS: 0.9% Saline Lock 10 ML Syringe IV (17:58)
[2022-10-09] MEDS: Atorvastatin Calcium 40 MG Tablet PO (21:45)
--- NOTE | 2022-10-09 23:51 | CPS ---
Patient refuses at this time
[2022-10-10] VITALS (13 sets, daily range): BP systolic 114–140; BP diastolic 50–73; PULSE 66–96; RESP 16–20; TEMP 36.1–36.7; O2SAT 90–96; BMI 22.5
[2022-10-10 06:21] LABS: Absolute Lymphocyte Count 1.14 X10^3/uL (0.83-4.51); Absolute Neutrophil Count 17.1 X10^3/uL (2.0-7.7); Basophil# 0.07 X10^3/uL; Basophil% 0.4 % (0-1); Eosinophil# 0.15 X10^3/uL; Eosinophils% 0.8 % (0-5); Hematocrit 28.8 % (40-54); Hemoglobin 9.1 g/dL (13.0-16.5); Lymphocyte # 1.14 X10^3/ul (0.83-4.51); Lymphocyte % 5.8 % (19-41); Mean Corp Hgb Conc 31.6 g/dL (32-36); Mean Corpuscular Hgb 28.7 pg (27.0-32.0); Mean Corpuscular Volume 90.9 fL (80-94); Mean Platelet Vol. 9.8 fl (6.2-12.0); Monocyte# 0.75 X10^3/uL; Monocyte% 3.8 % (0-10); NRBC Flagged by Analyzer 0 % (0-5); Neutrophil # 17.09 X10^3/uL (2.7-7.7); Neutrophil % 87.7 % (47-70); Platelet Count 485 K/mm3 (150-450); RBC Distribution Width CV 15.9 % (11.6-14.6); RBC Distribution Width SD 53.3 fl (35.1-43.9); Red Blood Count 3.17 M/mm3 (4.6-6.2); White Blood Count 19.5 K/mm3 (4.4-11.0)
[2022-10-10 07:06] LABS: ALB/GLOB Ratio 0.4 RATIO (0.9-2.4); AST(SGOT) 12 U/L (15-37); Alanine Aminotransfer ALT/SGPT 11 U/L (16-61); Albumin, Serum 1.5 g/dL (3.2-5.0); Alkaline Phosphatase 112 U/L (45-117); Anion Gap 4 (5-15); BUN 11 mg/dL (7-18); BUN/Creat Ratio 27.1 RATIO (10-20); Calcium,Total 7.9 mg/dL (8.5-10.1); Chloride 103 mmol/L (98-107); Creatinine, Serum 0.41 mg/dL (0.70-1.30); EST Glomerular Filtration Rate 220 mL/min (>60); Est Glom Filt Rate - Afr Amer 266 mL/min (>60); Estimated Creatinine Clearance 66.92 ml/min; Glucose 141 mg/dL (74-106); Magnesium 1.2 mg/dL (1.6-2.6); Potassium 3.2 mmol/L (3.5-5.1); Protein, Total 5.5 g/dL (6.4-8.2); Sodium Level 136 mmol/L (136-145)
[2022-10-10] MEDS: Ipratropium/Albuterol Sulfate 3 ML AMPUL.NEB INHALATION ×3 (08:03→21:53)
[2022-10-10] MEDS: Potassium Chloride 10mEq/100mL 10 MEQ/100 ML IV.SOLN. 100 MEQ IV BOLUS ×4 (08:11→11:36)
[2022-10-10] MEDS: Magnesium Sulfate 4gm/100mL 4 GM/100 ML IV.SOLN. IV (08:11)
--- NOTE | 2022-10-10 08:22 | PN.CC_ITS ---
Assessment & Plan Assessment/Plan (1) GI bleed: (2) Sepsis: PLAN: Plan RECOMMENDATIONS: 1. Aggressive electrolyte repletion 2. Wean oxygen as tolerated 3. Reevaluation of ulcer per GI 4. Antibiotics per infectious disease 5. Schedule Lasix therapy 6. Likely okay to reinitiate antihypertensives in a stepwise fashion IMPRESSIONS: 1. Sepsis Resolved. Clinical suspicion for decubitus ulcers leading to coag-negati ve septicemia versus UTI. Patient does have a chronic Soto secondary to urinary retention and UA is suggestive of possible infection. Soto has been replaced, but grew only fungus. Other sources include decubitus ulcers. Patient does have C. difficile present, but no toxin. Will defer to infectious disease on antibiotics and coag negative staph. Patient is on empiric antibiotics at this time. Patient is no longer requiring any pressors. Okay to reinitiate diuretics 2. GI bleed secondary to duodenal bulb ulcer Patient with recent admission to outside facility requiring 5 units of packed red blood cells and several clips after EGD with a duodenal bulb ulcer. Clinical suspicion for rebleeding given black stools. Hemoglobin is not significantly down from recent baseline, but patient was given 2 units of packed red blood cells. Duodenal ulcer still present, but did have intervention. Doubt hemorrhagic shock leading to hypotension on presentation. Will defer to GI on whether ulcer needs reevaluated 3. Type II NSTEMI/chronic systolic CHF Clinical suspicion for decreased perfusion secondary to problems 1 and 2. Patient is denying any chest pain at this time. We will continue with telemetry. Patient's last echocardiogram showed an EF of 40% with moderate ventricular dysfunction. Patient is +3 L over the course of the hospitalization. We will reinitiate diuretics. Okay to reinitiate antihypertensives in a stepwise fashion. No heparin or anticoagulation secondary to problem #2. Aggressive electrolyte repletion to avoid ectopy 4. Decubitus ulcers/history of CVA/hypertension/advanced age/urinary retention/debility Complicates care, management, recovery and prognosis. Wound care has been consulted. Please see wound note for measurements of wounds. Antihypertensives have been held secondary to problems 1 and 2. Soto has been replaced patient's albumin of 1.6 indicates a significant nutritional deficit. Subjective Subjective Patient resting comfortably on my initial evaluation. Patient was requiring increased oxygen overnight. Patient did not report any pain or dyspnea after being woken up. Patient did not report any bowel movements overnight Objective Data Objective Data Vital Signs: Vital Signs Temp Pulse Resp BP Pulse Ox O2 Del Method O2 Flow Rate 36.7 C 92 19 H 140/57 H 93 Nasal Cannula 4 10/10/22 07:00 10/10/22 07:00 10/10/22 07:00 10/10/22 07:00 10/10/22 07:00 10/10/22 07:00 10/10/22 07:00 FiO2 40 10/09/22 00:00 Oxygen Flow Rate (L/min) 4 Oxygen Delivery Method Nasal Cannula Weight: 73 kg Body Mass Index (BMI) 22.5 Intake & Output: Intake and Output for Last 24 Hours 10/08/22 10/09/22 10/10/22 23:59 23:59 23:59 Intake Total 2038.33 / 2038.33 2396.88 / 2396.88 325 / 325 Output Total 1700 / 1700 3925 / 3925 750 / 750 Balance 338.33 / 338.33 -1528.12 / -1528.12 -425 / -425 Medical Nutrition Assessment Dietitian: Malnutrition Criteria Met Start: 10/07/22 14:13 Freq: Status: Active Protocol: Document 10/09/22 09:32 GEORGE (Rec: 10/09/22 09:32 [facility] [id number]) Nutrition Malnutrition Evidence of Malnutrition Exists Yes Malnutrition (severe): Chronic Evidenced By Suboptimal Energy Intake ( Severe),Weight Loss (Severe) Intake Problem Increased Nutrient Needs (specify) Etiology protein needs related to skin status Signs/Symptoms as evidenced by PI love heels and R buttock/sacrum - followed by wound nurse; on Alfonso bid Status Active Problem Clinical Problem Acute Disease or Injury Related Malnutrition Etiology severe, acute malnutrition related to inadequate energy intake Signs/Symptoms as evidenced by unintentional wt loss of 19.4#/12% x 1 month ; estimated PO intake meeting <75% of estimated energy needs > 1 month Status Active Problem Recommendation Dietitian Recommendations/Changes recommend advance diet as tolerated to regular, - texture /consistency per [employer] FARM[employer]ER; Ensure Plus High Protein 120mL 4x/day w/ medpass when diet advanced Alfonso BID for wound healing. Lab / Micro Data Attestation: I reviewed the patient's lab results. Result Diagrams: 10/10/22 06:11 10/10/22 06:11 Labs: Laboratory Results - last 24 hr 10/09/22 09:43: Vancomycin Trough 17.0 H 10/10/22 06:11: WBC 19.5 H, RBC 3.17 L, Hgb 9.1 L, Hct 28.8 L, MCV 90.9, MCH 28.7, MCHC 31.6 L, RDW Std Deviation 53.3 H, RDW Coeff of Luis 15.9 H, Plt Count 485 H, MPV 9.8, Immature Gran % (Auto) 1.500 H, Neut % (Auto) 87.7 H, Lymph % (Auto) 5.8 L, [place] % (Auto) 3.8, Eos % (Auto) 0.8, Baso % (Auto) 0.4, Absolute Neuts (auto) 17.1 H, Absolute Lymphs (auto) 1.14, Nucleated RBC % 0 10/10/22 06:11: Sodium 136, Potassium 3.2 L, Chloride 103, Carbon Dioxide 29.0, Anion Gap 4 L, BUN 11, Creatinine 0.41 L, Estim Creat Clear Calc 66.92, Est GFR (MDRD) Af Amer 266, Est GFR (MDRD) Non-Af 220, BUN/Creatinine Ratio 27.1 H, Glucose 141 H, Calcium 7.9 L, Magnesium 1.2 L, Total Bilirubin 0.60, AST 12 L, ALT 11 L, Alkaline Phosphatase 112, Total Protein 5.5 L, Albumin 1.5 L, Globulin 4.0, Albumin/Globulin Ratio 0.4 L Micro: Microbiology 10/07/22 03:23 Blood Culture (Wb) - Left Wrist Bacteria Detection (PCR) - Final Coag Negative Staph 10/07/22 03:23 Blood Culture (Wb) - Left Wrist Blood Culture - Preliminary Staphylococcus species 10/07/22 03:45 Blood Culture (Wb) - Left Wrist Blood Culture - Preliminary Staphylococcus species 10/07/22 03:50 Urine, Catheterized Urine Culture - Preliminary Presumptive C albicans Staphylococcus aureus 10/07/22 09:00 Wound - Buttock Gram Stain - Final 10/07/22 09:00 Wound - Buttock Wound Culture - Preliminary Streptococcus pyogenes Staphylococcus aureus 10/07/22 08:50 Stool Enteric Bacteriology - Final 10/07/22 08:50 Stool C. difficile GDH Antigen & Toxins - Final 10/07/22 08:50 Stool C. difficile DNA Amplification - Final 10/07/22 08:55 Nasal Secretion SARS-CoV-2 & FLU Antigen (Rapid) - Final 10/07/22 03:15 Stool Stool Occult Blood (VIMAL) - Final Occult Blood Positive Physical Exam Const alert and no apparent distress Constitutional Narrative: Appears older than stated age. No active retching noted. General Appearance: cooperative, comfortable and well developed Exam Limitations: no limitations HEENT normocephalic, head/scalp atraumatic and moist oral mucous membranes; Negative for hearing grossly normal bilaterally Eyes PERRL and EOMs intact bilaterally; Negative for conjunctivae normal Eyes Narrative: Conjunctiva are pale bilaterally, no scleral icterus Neck no lymphadenopathy and supple Neck Narrative: Trachea midline, no thyroid enlargement Resp normal respiratory effort, no retractions, no use of accessory muscles and clear to auscultation bilaterally Auscultation: diminished lung sounds diffuse; Negative for rales, rhonchi or wheezes Cardio regular rate, regular rhythm, S1 normal heart sound, S2 normal heart sound, no murmurs, no rub, no gallops and no clicks Rate: tachycardic GI normal to inspection, nondistended, normoactive bowel sounds, soft to palpation and non-tender Extremity no clubbing, cyanosis or edema Extremity Narrative: Markedly diminished pedal pulses bilaterally with delayed cap refill Skin No no rashes or lesions noted, No no wounds, skin turgor normal, no jaundice, no petechiae and no mottling Skin Narrative: Significant vascular appearing wounds on the dorsum of the right foot and lateral aspect of the right leg, small wound left heel. Coccyx not examined Neuro oriented x3, CN's II-XII intact bilaterally, moves all extremities, no focal motor deficits and no sensory deficits noted Neuro Narrative: Significant generalized weakness Psych cooperative Psych Narrative: eye contact is good Mood & Affect: flat affect Charges/Coding Visit Charges Inpatient E&M: 41637 Subs Hosp L2
[2022-10-10] MEDS: Furosemide 40 MG Tablet PO (09:20)
[2022-10-10] MEDS: Sertraline 100 MG Tablet PO (09:20)
[2022-10-10] MEDS: Juven (unflavored) Packet 1 PACKET PO ×2 (09:20→16:35)
[2022-10-10] MEDS: DAKIN'S SOL HALF STRENGTH (=0.25%) 1 APPLIC TOPICAL (09:20)
--- NOTE | 2022-10-10 10:28 | PN.HOSP_ITS ---
Reason for Visit Reason for Visit: Diagnoses Sepsis, unspecified organism (10/07/22) Anemia, unspecified (10/07/22) Unspecified severe protein-calorie malnutrition (10/07/22) Peripheral vascular disease, unspecified (10/07/22) Pneumonia, unspecified organism (10/07/22) Acute respiratory failure with hypoxia (10/07/22) Gastrointestinal hemorrhage, unspecified (10/07/22) Non-pressure chronic ulcer of other part of right foot with necrosis of muscle (10/07/22) Dysphagia, unspecified (10/07/22) Subjective Subjective Except, overall feeling fair, does not report any new complaints Objective Data Objective Data Vital Signs: Vital Signs Temp Pulse Resp BP Pulse Ox O2 Del Method O2 Flow Rate 98.0 F 86 16 140/67 H 93 Nasal Cannula 5 10/10/22 09:15 10/10/22 09:15 10/10/22 09:15 10/10/22 09:15 10/10/22 09:15 10/10/22 09:15 10/10/22 09:15 FiO2 40 10/09/22 00:00 Oxygen Flow Rate (L/min) 5 Oxygen Delivery Method Nasal Cannula Weight: 73 kg Body Mass Index (BMI) 22.5 Intake & Output: Intake and Output for Last 24 Hours 10/08/22 10/09/22 10/10/22 23:59 23:59 23:59 Intake Total 2038.33 / 2038.33 2396.88 / 2396.88 525 / 525 Output Total 1700 / 1700 3925 / 3925 750 / 750 Balance 338.33 / 338.33 -1528.12 / -1528.12 -225 / -225 Medical Nutrition Assessment Dietitian: Malnutrition Criteria Met Start: 10/07/22 14:13 Freq: Status: Active Protocol: Document 10/09/22 09:32 GEORGE (Rec: 10/09/22 09:32 GEOREG [id number]) Nutrition Malnutrition Evidence of Malnutrition Exists Yes Malnutrition (severe): Chronic Evidenced By Suboptimal Energy Intake ( Severe),Weight Loss (Severe) Intake Problem Increased Nutrient Needs (specify) Etiology protein needs related to skin status Signs/Symptoms as evidenced by PI love heels and R buttock/sacrum - followed by wound nurse; on Alfonso bid Status Active Problem Clinical Problem Acute Disease or Injury Related Malnutrition Etiology severe, acute malnutrition related to inadequate energy intake Signs/Symptoms as evidenced by unintentional wt loss of 19.4#/12% x 1 month ; estimated PO intake meeting <75% of estimated energy needs > 1 month Status Active Problem Recommendation Dietitian Recommendations/Changes recommend advance diet as tolerated to regular, - texture /consistency per RN DIABETES EDUCATOR; Ensure Plus High Protein 120mL 4x/day w/ medpass when diet advanced Alfonso BID for wound healing. Lab / Micro Data Result Diagrams: 10/10/22 06:11 10/10/22 06:11 Labs: Laboratory Results - last 24 hr 10/10/22 06:11: WBC 19.5 H, RBC 3.17 L, Hgb 9.1 L, Hct 28.8 L, MCV 90.9, MCH 28.7, MCHC 31.6 L, RDW Std Deviation 53.3 H, RDW Coeff of Luis 15.9 H, Plt Count 485 H, MPV 9.8, Immature Gran % (Auto) 1.500 H, Neut % (Auto) 87.7 H, Lymph % (Auto) 5.8 L, [place] % (Auto) 3.8, Eos % (Auto) 0.8, Baso % (Auto) 0.4, Absolute Neuts (auto) 17.1 H, Absolute Lymphs (auto) 1.14, Nucleated RBC % 0 10/10/22 06:11: Sodium 136, Potassium 3.2 L, Chloride 103, Carbon Dioxide 29.0, Anion Gap 4 L, BUN 11, Creatinine 0.41 L, Estim Creat Clear Calc 66.92, Est GFR (MDRD) Af Amer 266, Est GFR (MDRD) Non-Af 220, BUN/Creatinine Ratio 27.1 H, Glucose 141 H, Calcium 7.9 L, Magnesium 1.2 L, Total Bilirubin 0.60, AST 12 L, ALT 11 L, Alkaline Phosphatase 112, Total Protein 5.5 L, Albumin 1.5 L, Globulin 4.0, Albumin/Globulin Ratio 0.4 L Micro: Microbiology 10/07/22 09:00 Wound - Buttock Gram Stain - Final 10/07/22 09:00 Wound - Buttock Wound Culture - Final Streptococcus pyogenes Meth. resistant Staph. aureus 10/07/22 03:50 Urine, Catheterized Urine Culture - Final Presumptive C albicans Meth. resistant Staph. aureus 10/07/22 03:23 Blood Culture (Wb) - Left Wrist Bacteria Detection (PCR) - Final Coag Negative Staph 10/07/22 03:23 Blood Culture (Wb) - Left Wrist Blood Culture - Preliminary Staphylococcus species 10/07/22 03:45 Blood Culture (Wb) - Left Wrist Blood Culture - Preliminary Staphylococcus species 10/07/22 08:50 Stool Enteric Bacteriology - Final 10/07/22 08:50 Stool C. difficile GDH Antigen & Toxins - Final 10/07/22 08:50 Stool C. difficile DNA Amplification - Final 10/07/22 08:55 Nasal Secretion SARS-CoV-2 & FLU Antigen (Rapid) - Final 10/07/22 03:15 Stool Stool Occult Blood (VIMAL) - Final Occult Blood Positive Physical Exam Narrative General: Awake, answers questions appropriately HEENT: Atraumatic Eyes: Anicteric, normal conjunctiva, extraocular movements grossly intact Neck: Supple Respiratory: Possibly some slight crackling on the left compared to the right at the base normal respiratory effort Cardiovascular: Regular rhythm, regular rate GI: Soft, nontender, nondistended Extremities: No edema Musculoskeletal: Moving all extremities Neuro: No overt focal neurological deficits Skin: Bilateral lower extremities wrapped Psych: Cooperative Assessment & Plan Assessment/Plan (1) GI bleed: PLAN: Plan #Sepsis, unclear source, decubitus ulcers versus UTI * -unclear source, has had Estrada and UA did show bacteria, leuk esterase, white blood cells but unclear if colonized or when it was last changed, will need to explore this further. * -CT abdomen pelvis with multiple dilated small bowel loops up to 2.4 cm in di ameter scattered throughout the abdomen without a clear-cut transition point which per report may be due to ileus or gastroenteritis. Mild wall thickening in the urinary bladder unchanged and may be due to muscular hypertrophy or cystitis. Additionally moderate rectal fecal impaction which is slightly decreased compared to previous, moderate atelectasis of right lung base * -Enteric panel ordered * -Chest x-ray no acute abnormality * -Does have foot wounds and buttock ulcer, foot x-ray with osteopenia of the heads of the fifth metatarsals bilaterally which may be severe osteopenia but cannot rule out osteomyelitis at this time, if not improving or if increase suspicion will need further imaging and podiatry consult, wound care consulted * -BP marginal despite fluid resuscitation with intermittent low-grade tachycardia in ED and patient currently receiving 2 units packed red blood cells but given that he is improving do not feel he needs norepinephrine at this time but has high risk for decompensation and is being admitted to ICU * -Consult appliance assembler * -White blood cell count 28.6 with left shift * -Heart rate greater than 90, INR 1.5, initial lactic acid 2.3, elevated troponin * -Cultures pending * -Treated broad-spectrum with vancomycin and Zosyn * -Appears to have been given 2.5 L of fluids in the ED which is appropriate for his weight. Most recent echo on 10/02 showed an EF of 40% with moderate ventricular dysfunction and he does take diuretics at home, will hold diuretics and monitor respiratory status and BP, low threshold for further fluids -10/08: Doing better today, C. difficile present in stool but no toxin, infectious disease consulted. Wound culture of right upper buttock wound with strep pyogenes and Staph aureus with sensitivities pending. Urine and blood cultures pending, remains on broad-spectrum antibiotics. -10/08: 1 out of 2 blood cultures positive coag negative staph, second blood culture positive for gram-positive cocci, further speciation pending. Wound with strep pyogenes and Staph aureus. ID consulted. Remains on vancomycin and Zosyn. -10/10: UTI versus decubitus ulcers. Wound culture so far with strep pyogenes and MRSA. He is on vancomycin and Zosyn. His UA with presumptive Ursula albicans and MRSA. Blood is 2 out of 2 staph species, 1 is coag negative Staphylococcus and the second is pending organism speciation. We will repeat blood cultures, if 2 of 2 positive for coag negative staph again may need repeat TTE or JOSUE. Continue current antibiotics at this time. Blood cell count remains high, continue to monitor. Can consider repeat Pro-Stephen or inflammatory markers pending progress #Hypoxia -Unclear etiology, there had been concern for aspiration -Speech following -Requires 5 to 6 L at bedtime to maintain saturation and presently 93 on 5 L -Continue nebs -Lasix reinitiated starting today -If any worse or not improving can repeat chest x-ray #Concern for GI bleed * -Hx of duodenal bulb ulcer and GIB admitted to [place] last month with hemorrhagic shock requiring 5u prbc. Had several clips during EEG * -[facility] stools [facility] and was also observed here in ED, hgb 8.9 with value of 8.4 on 09/18/1292 but stool occult was positive even though it was negative last admission and given his hypotension and tachycardia there is concern that labs had not yet reflected blood loss * -2uprbc given in ED * -Trend H&H * -PPI drip * -GI consulted * -ortho stats ordered * -Reticulocyte count as well as iron panel, instructions for only add on since pt is receiving blood -10/08: EGD today with severe erosive esophagitis which was biopsied, benign- appearing esophageal stenosis which was dilated and an oozing duodenal ulcer w ith pigmented material which was injected and treated with heater probe. Clear liquid diet recommended. Hemoglobin is slightly down today but appears similar to baseline with no new overt bleeding noted. We will continue to trend -10/08: On octreotide and Protonix, discontinuation per GI. Hemoglobin stable -10/10: PPI 40 IV every 12. Off octreotide drip. Continue monitor hemoglobin #NSTEMI type II -EKG reported sinus tac w/ LAD, qtc 497 -Denied chest pain -Will continue to trend though low suspicion for type one, highly suspect it is 2/2 above -10/08: Troponin peaked at 261 and then down trended to 246, have amended diagnosis to type II NSTEMI #Hypokalemia, hypomagnesemia -Replace and will recheck -10/08: Continue repletion of lytes #Urinary retention -Was d/c'd with estrada catheter d/t retention w/ instructions to f/u outpt w/ Dr. Junie jasmine -10/08: Estrada replaced in ICU upon admission #Atherosclerosis of extremities w/ ulceration -Last admission had CTA with severe diffuse atherosclerotic stenosis notably of bilateral iliac and femoral arteries -Patient was not a good candidate for intervention at that time it was recommended to follow-up outpatient with outpatient stress test prior to intervention -Wound care consult -Continue statin -Cont alfonso for wound healing #Hx cva 08/01/20 -cont statin #hx hypertension -Holding bp meds d/t hypotension #DVT ppx: SCDs Marleen Funk MD Time spent in the patient's overall evaluation,decision-making process, review of diagnostic data, adjustment of management, discussion with other providers, nursing nursing and ancillary staff involved in patient's care documentation, 30 minutes Charges/Coding Visit Charges Inpatient E&M: 50771 Subs Hosp L2
[2022-10-10] MEDS: 0.9% Saline Lock 10 ML Syringe IV (21:20)
[2022-10-10] MEDS: Atorvastatin Calcium 40 MG Tablet PO (21:20)
[2022-10-11] VITALS (11 sets, daily range): BP systolic 121–141; BP diastolic 47–67; PULSE 63–96; RESP 16–18; TEMP 36.1–36.6; O2SAT 92–98; BMI 22.4
--- NOTE | 2022-10-11 07:56 | PN.HOSP_ITS ---
Reason for Visit Reason for Visit: Diagnoses Sepsis, unspecified organism (10/07/22) Anemia, unspecified (10/07/22) Unspecified severe protein-calorie malnutrition (10/07/22) Peripheral vascular disease, unspecified (10/07/22) Pneumonia, unspecified organism (10/07/22) Acute respiratory failure with hypoxia (10/07/22) Gastrointestinal hemorrhage, unspecified (10/07/22) Non-pressure chronic ulcer of other part of right foot with necrosis of muscle (10/07/22) Dysphagia, unspecified (10/07/22) Subjective Subjective Continues to do better, no acute complaints Objective Data Objective Data Vital Signs: Vital Signs Temp Pulse Resp BP Pulse Ox O2 Del Method O2 Flow Rate 97.6 F L 63 16 141/47 H 95 Nasal Cannula 5 10/11/22 05:33 10/11/22 05:33 10/11/22 05:33 10/11/22 05:33 10/11/22 05:33 10/11/22 05:34 10/11/22 05:34 FiO2 40 10/09/22 00:00 Oxygen Flow Rate (L/min) 5 Oxygen Delivery Method Nasal Cannula Weight: 72.9 kg Body Mass Index (BMI) 22.4 Intake & Output: Intake and Output for Last 24 Hours 10/09/22 10/10/22 10/11/22 23:59 23:59 23:59 Intake Total 2396.88 / 2396.88 2135 / 2275 190 / 190 Output Total 3925 / 3925 2450 / 3150 1350 / 1350 Balance -1528.12 / -1528.12 -315 / -875 -1160 / -1160 Medical Nutrition Assessment Dietitian: Malnutrition Criteria Met Start: 10/07/22 14:13 Freq: Status: Active Protocol: Document 10/09/22 09:32 GEORGE (Rec: 10/09/22 09:32 GEORGE [id number]) Nutrition Malnutrition Evidence of Malnutrition Exists Yes Malnutrition (severe): Chronic Evidenced By Suboptimal Energy Intake ( Severe),Weight Loss (Severe) Intake Problem Increased Nutrient Needs (specify) Etiology protein needs related to skin status Signs/Symptoms as evidenced by PI love heels and R buttock/sacrum - followed by wound nurse; on Alfonso bid Status Active Problem Clinical Problem Acute Disease or Injury Related Malnutrition Etiology severe, acute malnutrition related to inadequate energy intake Signs/Symptoms as evidenced by unintentional wt loss of 19.4#/12% x 1 month ; estimated PO intake meeting <75% of estimated energy needs > 1 month Status Active Problem Recommendation Dietitian Recommendations/Changes recommend advance diet as tolerated to regular, - texture /consistency per SUPERINTENDENT SEED MILL; Ensure Plus High Protein 120mL 4x/day w/ medpass when diet advanced Alfonso BID for wound healing. Lab / Micro Data Result Diagrams: 10/11/22 09:30 10/11/22 09:30 Micro: Microbiology 10/07/22 03:45 Blood Culture (Wb) - Left Wrist Blood Culture - Preliminary Staphylococcus species 10/07/22 03:23 Blood Culture (Wb) - Left Wrist Bacteria Detection (PCR) - Final Coag Negative Staph 10/07/22 03:23 Blood Culture (Wb) - Left Wrist Blood Culture - Preliminary Staphylococcus hominis hominis 10/07/22 09:00 Wound - Buttock Gram Stain - Final 10/07/22 09:00 Wound - Buttock Wound Culture - Final Streptococcus pyogenes Meth. resistant Staph. aureus 10/07/22 03:50 Urine, Catheterized Urine Culture - Final Presumptive C albicans Meth. resistant Staph. aureus 10/07/22 08:50 Stool Enteric Bacteriology - Final 10/07/22 08:50 Stool C. difficile GDH Antigen & Toxins - Final 10/07/22 08:50 Stool C. difficile DNA Amplification - Final 10/07/22 08:55 Nasal Secretion SARS-CoV-2 & FLU Antigen (Rapid) - Final 10/07/22 03:15 Stool Stool Occult Blood (VIMAL) - Final Occult Blood Positive Physical Exam Narrative General: Awake, answers questions appropriately HEENT: Atraumatic Eyes: Anicteric, normal conjunctiva, extraocular movements grossly intact Neck: Supple Respiratory: No increased respiratory effort Cardiovascular: Regular rhythm, regular rate GI: Soft, nontender, nondistended Extremities: No edema Musculoskeletal: Moving all extremities Neuro: No overt focal neurological deficits Skin: Bilateral lower extremities wrapped Psych: Cooperative Assessment & Plan Assessment/Plan (1) GI bleed: PLAN: Plan #Sepsis, unclear source, decubitus ulcers versus UTI * -unclear source, has had Estrada and UA did show bacteria, leuk esterase, white blood cells but unclear if colonized or when it was last changed, will need to explore this further. * -CT abdomen pelvis with multiple dilated small bowel loops up to 2.4 cm in diameter scattered throughout the abdomen without a clear-cut transition point which per report may be due to ileus or gastroenteritis. Mild wall thickening in the urinary bladder unchanged and may be due to muscular hypertrophy or cystitis. Additionally moderate rectal fecal impaction which is slightly decreased compared to previous, moderate atelectasis of right lung base * -Enteric panel ordered * -Chest x-ray no acute abnormality * -Does have foot wounds and buttock ulcer, foot x-ray with osteopenia of the heads of the fifth metatarsals bilaterally which may be severe osteopenia but cannot rule out osteomyelitis at this time, if not improving or if increase suspicion will need further imaging and podiatry consult, wound care consulted * -BP marginal despite fluid resuscitation with intermittent low-grade tachycardia in ED and patient currently receiving 2 units packed red blood cells but given that he is improving do not feel he needs norepinephrine at this time but has high risk for decompensation and is being admitted to ICU * -Consult budget manager * -White blood cell count 28.6 with left shift * -Heart rate greater than 90, INR 1.5, initial lactic acid 2.3, elevated troponin * -Cultures pending * -Treated broad-spectrum with vancomycin and Zosyn * -Appears to have been given 2.5 L of fluids in the ED which is appropriate for his weight. Most recent echo on 10/02 showed an EF of 40% with moderate ventricular dysfunction and he does take diuretics at home, will hold diureti cs and monitor respiratory status and BP, low threshold for further fluids -10/08: Doing better today, C. difficile present in stool but no toxin, infectious disease consulted. Wound culture of right upper buttock wound with strep pyogenes and Staph aureus with sensitivities pending. Urine and blood cultures pending, remains on broad-spectrum antibiotics. -10/08: 1 out of 2 blood cultures positive coag negative staph, second blood culture positive for gram-positive cocci, further speciation pending. Wound with strep pyogenes and Staph aureus. ID consulted. Remains on vancomycin and Zosyn. -10/10: UTI versus decubitus ulcers. Wound culture so far with strep pyogenes and MRSA. He is on vancomycin and Zosyn. His UA with presumptive Ursula albicans and MRSA. Blood is 2 out of 2 staph species, 1 is coag negative Staphylococcus and the second is pending organism speciation. We will repeat blood cultures, if 2 of 2 positive for coag negative staph again may need repeat TTE or JOSUE. Continue current antibiotics at this time. Blood cell count remains high, continue to monitor. Can consider repeat Pro-Stephen or inflammatory markers pending progress -10/11: Is improving overall, repeat blood cultures pending #Hypoxia -Unclear etiology, there had been concern for aspiration -Speech following -Requires 5 to 6 L at bedtime to maintain saturation and presently 93 on 5 L -Continue nebs -Lasix reinitiated starting today -If any worse or not improving can repeat chest x-ray -10/11: Roughly unchanged #Concern for GI bleed * -Hx of duodenal bulb ulcer and GIB admitted to [place] last month with hemorrhagic shock requiring 5u prbc. Had several clips during EEG * -Had black stools at [facility] and was also observed here in ED, hgb 8.9 with value of 8.4 on 09/18/1292 but stool occult was positive even though it was negative last admission and given his hypotension and tachycardia there is concern that labs had not yet reflected blood loss * -2uprbc given in ED * -Trend H&H * -PPI drip * -GI consulted * -ortho stats ordered * -Reticulocyte count as well as iron panel, instructions for only add on since pt is receiving blood -10/08: EGD today with severe erosive esophagitis which was biopsied, benign- appearing esophageal stenosis which was dilated and an oozing duodenal ulcer with pigmented material which was injected and treated with heater probe. Clear liquid diet recommended. Hemoglobin is slightly down today but appears similar to baseline with no new overt bleeding noted. We will continue to trend -10/08: On octreotide and Protonix, discontinuation per GI. Hemoglobin stable -10/10: PPI 40 IV every 12. Off octreotide drip. Continue monitor hemoglobin -10/11: #NSTEMI type II -EKG reported sinus tac w/ LAD, qtc 497 -Denied chest pain -Will continue to trend though low suspicion for type one, highly suspect it is 2/2 above -10/08: Troponin peaked at 261 and then down trended to 246, have amended diagnosis to type II NSTEMI #Hypokalemia, hypomagnesemia -Replace and will recheck -10/08: Continue repletion of lytes #Urinary retention -Was d/c'd with estrada catheter d/t retention w/ instructions to f/u outpt w/ Dr. Junie jasmine -10/08: Estrada replaced in ICU upon admission #Atherosclerosis of extremities w/ ulceration -Last admission had CTA with severe diffuse atherosclerotic stenosis notably of bilateral iliac and femoral arteries -Patient was not a good candidate for intervention at that time it was recommended to follow-up outpatient with outpatient stress test prior to intervention -Wound care consult -Continue statin -Cont alfonso for wound healing #Hx cva 08/01/20 -cont statin #hx hypertension -Holding bp meds d/t hypotension #DVT ppx: SCDs Marleen Funk MD Time spent in the patient's overall evaluation,decision-making process, review of diagnostic data, adjustment of management, discussion with other providers, nursing nursing and ancillary staff involved in patient's care documentation, 30 minutes Charges/Coding Visit Charges Inpatient E&M: 50357 Subs Hosp L2
[2022-10-11] MEDS: Ipratropium/Albuterol Sulfate 3 ML AMPUL.NEB INHALATION ×3 (07:59→19:58)
[2022-10-11] MEDS: Furosemide 40 MG Tablet PO (09:22)
[2022-10-11] MEDS: Sertraline 100 MG Tablet PO (09:24)
[2022-10-11 09:37] LABS: Absolute Lymphocyte Count 0.91 X10^3/uL (0.83-4.51); Absolute Neutrophil Count 17.1 X10^3/uL (2.0-7.7); Basophil# 0.05 X10^3/uL; Basophil% 0.3 % (0-1); Eosinophil# 0.09 X10^3/uL; Eosinophils% 0.5 % (0-5); Hematocrit 33.5 % (40-54); Lymphocyte # 0.91 X10^3/ul (0.83-4.51); Lymphocyte % 4.8 % (19-41); Mean Corp Hgb Conc 32.8 g/dL (32-36); Mean Corpuscular Hgb 29.4 pg (27.0-32.0); Mean Corpuscular Volume 89.6 fL (80-94); Mean Platelet Vol. 9.6 fl (6.2-12.0); Monocyte% 3.1 % (0-10); NRBC Flagged by Analyzer 0 % (0-5); Neutrophil % 89.6 % (47-70); Platelet Count 556 K/mm3 (150-450); RBC Distribution Width CV 15.8 % (11.6-14.6); RBC Distribution Width SD 51.6 fl (35.1-43.9); Red Blood Count 3.74 M/mm3 (4.6-6.2); White Blood Count 19.1 K/mm3 (4.4-11.0)
[2022-10-11 09:59] LABS: ALB/GLOB Ratio 0.3 RATIO (0.9-2.4); AST(SGOT) 14 U/L (15-37); Alanine Aminotransfer ALT/SGPT 14 U/L (16-61); Albumin, Serum 1.6 g/dL (3.2-5.0); Alkaline Phosphatase 116 U/L (45-117); Anion Gap 5 (5-15); BUN 7 mg/dL (7-18); BUN/Creat Ratio 12.4 RATIO (10-20); Calcium,Total 8.2 mg/dL (8.5-10.1); Chloride 101 mmol/L (98-107); Creatinine, Serum 0.56 mg/dL (0.70-1.30); EST Glomerular Filtration Rate 151 mL/min (>60); Est Glom Filt Rate - Afr Amer 182 mL/min (>60); Estimated Creatinine Clearance 66.83 ml/min; Globulin 4.7 g/dL (2.2-4.2); Glucose 151 mg/dL (74-106); Magnesium 1.5 mg/dL (1.6-2.6); Potassium 3.1 mmol/L (3.5-5.1); Protein, Total 6.3 g/dL (6.4-8.2); Sodium Level 136 mmol/L (136-145); Vancomycin, Trough Level 21.9 ug/mL (5.0-15.0)
--- NOTE | 2022-10-11 10:08 | PCM.RX.CS ---
Consult Pharmacy has been consulted to manage selected antiobiotic: Vancomycin Type of Consult: Follow-up Prior Doses of Antibiotics Received/Current Regimen: Medications Vancomycin HCl 1,250 mg/ (Sodium Chloride) 275 mls @ 167 mls/hr IV Q12H RUPAL Last Admin: 10/10/22 23:46 Dose: Infused Labs: Sodium 136 mmol/L (136-145) 10/11/22 09:30 Potassium 3.1 mmol/L (3.5-5.1) L 10/11/22 09:30 Chloride 101 mmol/L (98-107) 10/11/22 09:30 Carbon Dioxide 30.0 mmol/L (21.0-32.0) 10/11/22 09:30 Anion Gap 5 (5-15) 10/11/22 09:30 BUN 7 mg/dL (7-18) 10/11/22 09:30 Creatinine 0.56 mg/dL (0.70-1.30) L 10/11/22 09:30 Est GFR (MDRD) Af Amer 182 mL/min (>60) 10/11/22 09:30 Est GFR (MDRD) Non-Af 151 mL/min (>60) 10/11/22 09:30 BUN/Creatinine Ratio 12.4 RATIO (10-20) 10/11/22 09:30 Glucose 151 mg/dL (74-106) H 10/11/22 09:30 Vancomycin Trough 21.9 ug/mL (5.0-15.0) H 10/11/22 09:30 Microbiology: Microbiology 10/07/22 03:45 Blood Culture (Wb) - Left Wrist Blood Culture - Preliminary Staphylococcus species 10/07/22 03:23 Blood Culture (Wb) - Left Wrist Bacteria Detection (PCR) - Final Coag Negative Staph 10/07/22 03:23 Blood Culture (Wb) - Left Wrist Blood Culture - Preliminary Staphylococcus hominis hominis 10/07/22 09:00 Wound - Buttock Gram Stain - Final 10/07/22 09:00 Wound - Buttock Wound Culture - Final Streptococcus pyogenes Meth. resistant Staph. aureus 10/07/22 03:50 Urine, Catheterized Urine Culture - Final Presumptive C albicans Meth. resistant Staph. aureus 10/07/22 08:50 Stool Enteric Bacteriology - Final 10/07/22 08:50 Stool C. difficile GDH Antigen & Toxins - Final 10/07/22 08:50 Stool C. difficile DNA Amplification - Final 10/07/22 08:55 Nasal Secretion SARS-CoV-2 & FLU Antigen (Rapid) - Final 10/07/22 03:15 Stool Stool Occult Blood (VIMAL) - Final Occult Blood Positive Weight used for dosin kg Goal Trough: 15-20 mcg/mL Pharmacy Plan for Drug Dosing: Trough above goal range. Decrease vancomycin to 1000mg IV q12h with trough again in 2 days. Pharmacy Service will continue to monitor and adjust dosing as required. Follow-Up Labs: Trough Vancomycin - 10/13 @ 2081
[2022-10-11] MEDS: Potassium Chloride 10mEq/100mL 10 MEQ/100 ML IV.SOLN. 100 MEQ IV BOLUS ×2 (11:41→13:12)
--- NOTE | 2022-10-11 12:16 | PN.CC_ITS ---
Assessment & Plan Assessment/Plan (1) GI bleed: (2) Sepsis: PLAN: Plan RECOMMENDATIONS: 1. Aggressive electrolyte repletion 2. Wean oxygen as tolerated 3. Reevaluation of ulcer per GI 4. Antibiotics per infectious disease 5. Schedule Lasix therapy. Possibly increase Lasix tomorrow 6. Likely okay to reinitiate antihypertensives in a stepwise fashion IMPRESSIONS: 1. Sepsis Resolved. Clinical suspicion for decubitus ulcers leading to coag- negative septicemia versus UTI. Patient does have a chronic Soto secondary to urinary retention and was found to have a candiduria. Other sources include decubitus ulcers. Patient does have C. difficile present, but no toxin. Will defer to infectious disease on antibiotics and coag negative staph. Monitor clinically for the development of diarrhea. Patient is on empiric antibiotics at this time. Possibly increase diuretics tomorrow 2. GI bleed secondary to duodenal bulb ulcer Patient with recent admission to outside facility requiring 5 units of packed red blood cells and several clips after EGD with a duodenal bulb ulcer. Clinical suspicion for rebleeding given black stools. Hemoglobin is not significantly down from recent baseline, but patient was given 2 units of packed red blood cells. Duodenal ulcer still present and did have intervention. Doubt hemorrhagic shock leading to hypotension on presentation. Will defer to GI on whether ulcer needs reevaluated 3. Type II NSTEMI/chronic systolic CHF Clinical suspicion for decreased perfusion secondary to problems 1 and 2. Patient is denying any chest pain at this time. We will continue with telemetry. Patient's last echocardiogram showed an EF of 40% with moderate ventricular dysfunction. Patient is + 2.5 L over the course of the hospitalization. We will reinitiate diuretics. Okay to reinitiate antihypertensives in a stepwise fashion. No heparin or anticoagulation secondary to problem #2. Aggressive electrolyte repletion to avoid ectopy 4. Decubitus ulcers/history of CVA/hypertension/advanced age/urinary retention/debility Complicates care, management, recovery and prognosis. Wound care has been consulted. Please see wound note for measurements of wounds. Antihypertensives have been held secondary to problems 1 and 2. Soto has been replaced patient's albumin of 1.6 indicates a significant nutritional deficit. Subjective Subjective Patient did okay. Patient did not have his hearing aids in place during my evaluation. Patient states that the oxygen makes this difficult. Patient able to tolerate lunch with no complications. Patient is not reporting any dyspnea, but does have higher oxygen requirements. Objective Data Objective Data Vital Signs: Vital Signs Temp Pulse Resp BP Pulse Ox O2 Del Method O2 Flow Rate 36.4 C L 80 18 141/47 H 95 Nasal Cannula 5 10/11/22 05:33 10/11/22 11:00 10/11/22 11:00 10/11/22 05:33 10/11/22 11:00 10/11/22 11:00 10/11/22 11:00 FiO2 40 10/09/22 00:00 Oxygen Flow Rate (L/min) 5 Oxygen Delivery Method Nasal Cannula Weight: 72.9 kg Body Mass Index (BMI) 22.4 Intake & Output: Intake and Output for Last 24 Hours 10/09/22 10/10/22 10/11/22 23:59 23:59 23:59 Intake Total 2396.88 / 2396.88 2135 / 2275 350 / 350 Output Total 3925 / 3925 2450 / 3150 1350 / 1350 Balance -1528.12 / -1528.12 -315 / -875 -1000 / -1000 Medical Nutrition Assessment Dietitian: Malnutrition Criteria Met Start: 10/07/22 14:13 Freq: Status: Active Protocol: Document 10/09/22 09:32 GEORGE (Rec: 10/09/22 09:32 SLA [id number]) Nutrition Malnutrition Evidence of Malnutrition Exists Yes Malnutrition (severe): Chronic Evidenced By Suboptimal Energy Intake ( Severe),Weight Loss (Severe) Intake Problem Increased Nutrient Needs (specify) Etiology protein needs related to skin status Signs/Symptoms as evidenced by PI love heels and R buttock/sacrum - followed by wound nurse; on Alfonso bid Status Active Problem Clinical Problem Acute Disease or Injury Related Malnutrition Etiology severe, acute malnutrition related to inadequate energy intake Signs/Symptoms as evidenced by unintentional wt loss of 19.4#/12% x 1 month ; estimated PO intake meeting <75% of estimated energy needs > 1 month Status Active Problem Recommendation Dietitian Recommendations/Changes recommend advance diet as tolerated to regular, - texture /consistency per MONOMER RECOVERY SUPERVISOR; Ensure Plus High Protein 120mL 4x/day w/ medpass when diet advanced Alfonso BID for wound healing. Lab / Micro Data Attestation: I reviewed the patient's lab results. Result Diagrams: 10/11/22 09:30 10/11/22 09:30 Labs: Laboratory Results - last 24 hr 10/11/22 09:30: WBC 19.1 H, RBC 3.74 L, Hgb 11.0 L, Hct 33.5 L, MCV 89.6, MCH 29.4, MCHC 32.8, RDW Std Deviation 51.6 H, RDW Coeff of Luis 15.8 H, Plt Count 556 H, MPV 9.6, Immature Gran % (Auto) 1.700 H, Neut % (Auto) 89.6 H, Lymph % (Auto) 4.8 L, [place] % (Auto) 3.1, Eos % (Auto) 0.5, Baso % (Auto) 0.3, Absolute Neuts (auto) 17.1 H, Absolute Lymphs (auto) 0.91, Nucleated RBC % 0 10/11/22 09:30: Sodium 136, Potassium 3.1 L, Chloride 101, Carbon Dioxide 30.0, Anion Gap 5, BUN 7, Creatinine 0.56 L, Estim Creat Clear Calc 66.83, Est GFR (MDRD) Af Amer 182, Est GFR (MDRD) Non-Af 151, BUN/Creatinine Ratio 12.4, Glucose 151 H, Calcium 8.2 L, Magnesium 1.5 L, Total Bilirubin 0.60, AST 14 L, ALT 14 L, Alkaline Phosphatase 116, Total Protein 6.3 L, Albumin 1.6 L, Globulin 4.7 H, Albumin/Globulin Ratio 0.3 L 10/11/22 09:30: Vancomycin Trough 21.9 H Micro: Microbiology 10/07/22 03:45 Blood Culture (Wb) - Left Wrist Blood Culture - Preliminary Staphylococcus species 10/07/22 03:23 Blood Culture (Wb) - Left Wrist Bacteria Detection (PCR) - Final Coag Negative Staph 10/07/22 03:23 Blood Culture (Wb) - Left Wrist Blood Culture - Preliminary Staphylococcus hominis hominis 10/07/22 09:00 Wound - Buttock Gram Stain - Final 10/07/22 09:00 Wound - Buttock Wound Culture - Final Streptococcus pyogenes Meth. resistant Staph. aureus 10/07/22 03:50 Urine, Catheterized Urine Culture - Final Presumptive C albicans Meth. resistant Staph. aureus 10/07/22 08:50 Stool Enteric Bacteriology - Final 10/07/22 08:50 Stool C. difficile GDH Antigen & Toxins - Final 10/07/22 08:50 Stool C. difficile DNA Amplification - Final 10/07/22 08:55 Nasal Secretion SARS-CoV-2 & FLU Antigen (Rapid) - Final 10/07/22 03:15 Stool Stool Occult Blood (VIMAL) - Final Occult Blood Positive Physical Exam Const alert and no apparent distress Constitutional Narrative: Appears older than stated age. No active retching noted. General Appearance: cooperative, comfortable and well developed Exam Limitations: no limitations HEENT normocephalic, head/scalp atraumatic and moist oral mucous membranes General Ear: hearing grossly impaired bilateral Eyes PERRL and EOMs intact bilaterally; Negative for conjunctivae normal Eyes Narrative: Conjunctiva are pale bilaterally, no scleral icterus Neck no lymphadenopathy and supple Neck Narrative: Trachea midline, no thyroid enlargement Resp normal respiratory effort, no retractions, no use of accessory muscles and clear to auscultation bilaterally Auscultation: diminished lung sounds diffuse; Negative for rales, rhonchi or wheezes Cardio regular rate, regular rhythm, S1 normal heart sound, S2 normal heart sound, no murmurs, no rub, no gallops and no clicks GI normal to inspection, nondistended, normoactive bowel sounds, soft to palpation and non-tender Extremity no clubbing, cyanosis or edema Extremity Narrative: Markedly diminished pedal pulses bilaterally with delayed cap refill Skin No no rashes or lesions noted, No no wounds, skin turgor normal, no jaundice, no petechiae and no mottling Skin Narrative: Significant vascular appearing wounds on the dorsum of the right foot and lateral aspect of the right leg, small wound left heel. Coccyx not examined Neuro oriented x3, CN's II-XII intact bilaterally, moves all extremities, no focal motor deficits and no sensory deficits noted Neuro Narrative: Significant generalized weakness Psych cooperative Psych Narrative: eye contact is good Mood & Affect: flat affect Charges/Coding Visit Charges Inpatient E&M: 16637 Subs Hosp L2
[2022-10-11] MEDS: DAKIN'S SOL HALF STRENGTH (=0.25%) 1 APPLIC TOPICAL (16:10)
[2022-10-11] MEDS: Juven (unflavored) Packet 1 PACKET PO (16:52)
[2022-10-11] MEDS: Magnesium Sulfate 4gm/100mL 4 GM/100 ML IV.SOLN. IV (20:54)
[2022-10-11] MEDS: Vancomycin IV 1,000 MG/200 ML BAG 200 MG IV (20:54)
[2022-10-11] MEDS: Atorvastatin Calcium 40 MG Tablet PO (20:55)
[2022-10-12] VITALS (10 sets, daily range): BP systolic 99–152; BP diastolic 68–85; PULSE 62–96; RESP 16–18; TEMP 36.4–36.8; O2SAT 94–99; BMI 22.4
[2022-10-12 06:45] LABS: Absolute Lymphocyte Count 1.26 X10^3/uL (0.83-4.51); Absolute Neutrophil Count 14.2 X10^3/uL (2.0-7.7); Basophil# 0.06 X10^3/uL; Basophil% 0.4 % (0-1); Eosinophil# 0.16 X10^3/uL; Eosinophils% 0.9 % (0-5); Hematocrit 31.2 % (40-54); Hemoglobin 9.9 g/dL (13.0-16.5); Lymphocyte # 1.26 X10^3/ul (0.83-4.51); Lymphocyte % 7.5 % (19-41); Mean Corp Hgb Conc 31.7 g/dL (32-36); Mean Corpuscular Hgb 28.5 pg (27.0-32.0); Mean Corpuscular Volume 89.9 fL (80-94); Mean Platelet Vol. 10.1 fl (6.2-12.0); Monocyte# 0.83 X10^3/uL; Monocyte% 4.9 % (0-10); NRBC Flagged by Analyzer 0 % (0-5); Neutrophil # 14.24 X10^3/uL (2.7-7.7); Neutrophil % 84.2 % (47-70); Platelet Count 549 K/mm3 (150-450); RBC Distribution Width CV 15.7 % (11.6-14.6); RBC Distribution Width SD 51.9 fl (35.1-43.9); Red Blood Count 3.47 M/mm3 (4.6-6.2); White Blood Count 16.9 K/mm3 (4.4-11.0)
[2022-10-12 07:21] LABS: ALB/GLOB Ratio 0.4 RATIO (0.9-2.4); AST(SGOT) 17 U/L (15-37); Alanine Aminotransfer ALT/SGPT 19 U/L (16-61); Albumin, Serum 1.6 g/dL (3.2-5.0); Alkaline Phosphatase 96 U/L (45-117); Anion Gap 5 (5-15); BUN 7 mg/dL (7-18); BUN/Creat Ratio 16.7 RATIO (10-20); Calcium,Total 8.2 mg/dL (8.5-10.1); Chloride 102 mmol/L (98-107); Creatinine, Serum 0.42 mg/dL (0.70-1.30); EST Glomerular Filtration Rate 212 mL/min (>60); Est Glom Filt Rate - Afr Amer 256 mL/min (>60); Estimated Creatinine Clearance 66.83 ml/min; Globulin 4.1 g/dL (2.2-4.2); Glucose 119 mg/dL (74-106); Magnesium 2.1 mg/dL (1.6-2.6); Potassium 2.7 mmol/L (3.5-5.1); Protein, Total 5.7 g/dL (6.4-8.2); Sodium Level 138 mmol/L (136-145)
[2022-10-12] MEDS: Ipratropium/Albuterol Sulfate 3 ML AMPUL.NEB INHALATION ×3 (07:50→19:02)
[2022-10-12] MEDS: Juven (unflavored) Packet 1 PACKET PO ×2 (08:06→17:51)
[2022-10-12] MEDS: Pantoprazole Sodium 40 MG Tablet PO ×2 (08:06→21:48)
[2022-10-12] MEDS: Vancomycin IV 1,000 MG/200 ML BAG 200 MG IV ×2 (08:06→21:36)
[2022-10-12] MEDS: Furosemide 40 MG Tablet PO (08:06)
[2022-10-12] MEDS: Sertraline 100 MG Tablet PO (08:06)
[2022-10-12] MEDS: Potassium Chloride Oral Tablet 20 MEQ PO ×2 (08:06→17:51)
[2022-10-12] MEDS: Potassium Chloride 10mEq/100mL 10 MEQ/100 ML IV.SOLN. 100 MEQ IV BOLUS ×2 (09:38→11:13)
--- NOTE | 2022-10-12 10:13 | CASEMGMT ---
TCU has declined patient. LETTY called patient's sister Eva and left her a voice mail requesting a return call. Crystal IBARRA
--- NOTE | 2022-10-12 10:42 | PN.CC_ITS ---
Assessment & Plan Assessment/Plan (1) GI bleed: (2) Sepsis: PLAN: Plan RECOMMENDATIONS: 1. Wean supplemental oxygen to maintain saturations at or above 90%. 2. Aggressive potassium repletion. 3. Antimicrobials per ID recommendations. 4. Diuresis, as tolerated by hemodynamics and renal function. 5. Continue scheduled bronchodilators. 6. Encourage incentive spirometer use and mobilize patient as tolerated. IMPRESSIONS: 1. Sepsis Resolved. Clinical suspicion for decubitus ulcers leading to coag-negative septicemia versus UTI. The patient does have a chronic Soto secondary to urinary retention and was found to have a candiduria. Other sources include decubitus ulcers. Plan to continue antimicrobials per ID recommendations. 2. Type II NSTEMI/chronic systolic CHF Clinical suspicion for demand ischemia in the setting #1. The patient's last echocardiogram showed an EF of 40% with moderate ventricular dysfunction. Plan to continue gentle diuresis as tolerated by hemodynamics and renal function. 3. Decubitus ulcers/history of CVA/hypertension/advanced age/urinary ret ention/debility Complicates care, management, recovery and prognosis. Wound care is following. Continue home medications as indicated. This note was generated with [employer] dictation software. It may contain incorrect words, spelling, and punctuation that were not noted in checking the note before signing. Subjective Subjective The patient was seen and examined at the bedside this morning. Events from the last 24 hours have been reviewed. The patient is currently afebrile, hemodynamically stable and maintaining appropriate oxygen saturations on 3 L/min via nasal cannula. White count remains elevated at 17,000. Hemoglobin is stable at 9.9 g/dL. Potassium is low at 2.7. The patient has no specific complaints. Objective Data Objective Data The patient's most recent lab work, culture data and imaging studies have all been personally reviewed. Surface echocardiogram from October 02, 2022 demonstrated an ejection fraction of 40% with moderate global LV systolic dysfunction. Vital Signs: Vital Signs Temp Pulse Resp BP Pulse Ox O2 Del Method O2 Flow Rate 97.6 F L 89 18 99/77 99 Nasal Cannula 3 10/12/22 10:04 10/12/22 10:04 10/12/22 10:04 10/12/22 10:04 10/12/22 10:04 10/12/22 10:04 10/12/22 10:04 FiO2 40 10/09/22 00:00 Oxygen Flow Rate (L/min) 3 Oxygen Delivery Method Nasal Cannula Weight: 160 lb 11.472 oz Body Mass Index (BMI) 22.4 Intake & Output: Intake and Output for Last 24 Hours 10/10/22 10/11/22 10/12/22 23:59 23:59 23:59 Intake Total 2135 / 2275 1710 / 1710 567.92 / 567.92 Output Total 2450 / 3150 2750 / 2750 3250 / 3250 Balance -315 / -875 -1040 / -1040 -2682.08 / -2682.08 Medical Nutrition Assessment Dietitian: Malnutrition Criteria Met Start: 10/07/22 14:13 Freq: Status: Active Protocol: Document 10/09/22 09:32 GEORGE (Rec: 10/09/22 09:32 SLA [id number]) Nutrition Malnutrition Evidence of Malnutrition Exists Yes Malnutrition (severe): Chronic Evidenced By Suboptimal Energy Intake ( Severe),Weight Loss (Severe) Intake Problem Increased Nutrient Needs (specify) Etiology protein needs related to skin status Signs/Symptoms as evidenced by PI love heels and R buttock/sacrum - followed by wound nurse; on Alfonso bid Status Active Problem Clinical Problem Acute Disease or Injury Related Malnutrition Etiology severe, acute malnutrition related to inadequate energy intake Signs/Symptoms as evidenced by unintentional wt loss of 19.4#/12% x 1 month ; estimated PO intake meeting <75% of estimated energy needs > 1 month Status Active Problem Recommendation Dietitian Recommendations/Changes recommend advance diet as tolerated to regular, - texture /consistency per DIRECTOR OF PHILANTHROPY; Ensure Plus High Protein 120mL 4x/day w/ medpass when diet advanced Alfonso BID for wound healing. Lab / Micro Data Attestation: I reviewed the patient's lab results. Result Diagrams: 10/12/22 05:57 10/12/22 05:57 Labs: Laboratory Results - last 24 hr 10/12/22 05:57: WBC 16.9 H, RBC 3.47 L, Hgb 9.9 L, Hct 31.2 L, MCV 89.9, MCH 28.5, MCHC 31.7 L, RDW Std Deviation 51.9 H, RDW Coeff of Luis 15.7 H, Plt Count 549 H, MPV 10.1, Immature Gran % (Auto) 2.100 H, Neut % (Auto) 84.2 H, Lymph % (Auto) 7.5 L, [place] % (Auto) 4.9, Eos % (Auto) 0.9, Baso % (Auto) 0.4, Absolute Neuts (auto) 14.2 H, Absolute Lymphs (auto) 1.26, Nucleated RBC % 0 10/12/22 05:57: Sodium 138, Potassium 2.7 L*, Chloride 102, Carbon Dioxide 31.0, Anion Gap 5, BUN 7, Creatinine 0.42 L, Estim Creat Clear Calc 66.83, Est GFR (MDRD) Af Amer 256, Est GFR (MDRD) Non-Af 212, BUN/Creatinine Ratio 16.7, Glucose 119 H, Calcium 8.2 L, Magnesium 2.1, Total Bilirubin 0.60, AST 17, ALT 19, Alkaline Phosphatase 96, Total Protein 5.7 L, Albumin 1.6 L, Globulin 4.1, Albumin/Globulin Ratio 0.4 L Micro: Microbiology 10/07/22 03:45 Blood Culture (Wb) - Left Wrist Blood Culture - Final Staphylococcus species 10/07/22 03:23 Blood Culture (Wb) - Left Wrist Bacteria Detection (PCR) - Final Coag Negative Staph 10/07/22 03:23 Blood Culture (Wb) - Left Wrist Blood Culture - Final Staphylococcus hominis hominis 10/07/22 09:00 Wound - Buttock Gram Stain - Final 10/07/22 09:00 Wound - Buttock Wound Culture - Final Streptococcus pyogenes Meth. resistant Staph. aureus 10/07/22 03:50 Urine, Catheterized Urine Culture - Final Presumptive C albicans Meth. resistant Staph. aureus 10/07/22 08:50 Stool Enteric Bacteriology - Final 10/07/22 08:50 Stool C. difficile GDH Antigen & Toxins - Final 10/07/22 08:50 Stool C. difficile DNA Amplification - Final 10/07/22 08:55 Nasal Secretion SARS-CoV-2 & FLU Antigen (Rapid) - Final 10/07/22 03:15 Stool Stool Occult Blood (VIMAL) - Final Occult Blood Positive Physical Exam Const alert and no apparent distress Constitutional Narrative: Sitting in bedside recliner. Hard of hearing. General Appearance: cooperative HEENT normocephalic and head/scalp atraumatic Eyes PERRL, EOMs intact bilaterally and conjunctivae normal Neck supple General: trachea midline Chest inspection of chest normal Resp Auscultation: diminished lung sounds; Negative for rales, rhonchi or wheezes Cardio regular rate and regular rhythm GI normal to inspection, nondistended, normoactive bowel sounds Extremity no clubbing, cyanosis or edema Neuro CN's II-XII intact bilaterally and no focal motor deficits Psych cooperative and affect normal Charges/Coding Visit Charges Inpatient E&M: 10064 Subs Hosp L2
--- NOTE | 2022-10-12 11:29 | PN_ITS ---
Subjective Subjective Patient seen and examined this morning. He had no active complaints. He had an uneventful night. He is quite hard of hearing. Review of systems otherwise negative. He has remained hemodynamically stable. Objective Data Objective Data Vital Signs: Vital Signs Temp Pulse Resp BP Pulse Ox O2 Del Method O2 Flow Rate 97.6 F L 89 18 99/77 99 Nasal Cannula 3 10/12/22 10:04 10/12/22 10:04 10/12/22 10:04 10/12/22 10:04 10/12/22 10:04 10/12/22 10:04 10/12/22 10:04 FiO2 40 10/09/22 00:00 Oxygen Flow Rate (L/min) 3 Oxygen Delivery Method Nasal Cannula Weight: 160 lb 11.472 oz Body Mass Index (BMI) 22.4 Intake & Output: Intake and Output for Last 24 Hours 10/10/22 10/11/22 10/12/22 23:59 23:59 23:59 Intake Total 2135 / 2275 1710 / 1710 620.00 / 620.00 Output Total 2450 / 3150 2750 / 2750 3250 / 3250 Balance -315 / -875 -1040 / -1040 -2630.00 / -2630.00 Medical Nutrition Assessment Dietitian: Malnutrition Criteria Met Start: 10/07/22 14:13 Freq: Status: Active Protocol: Document 10/09/22 09:32 GEORGE (Rec: 10/09/22 09:32 GEORGE [id number]) Nutrition Malnutrition Evidence of Malnutrition Exists Yes Malnutrition (severe): Chronic Evidenced By Suboptimal Energy Intake ( Severe),Weight Loss (Severe) Intake Problem Increased Nutrient Needs (specify) Etiology protein needs related to skin status Signs/Symptoms as evidenced by PI love heels and R buttock/sacrum - followed by wound nurse; on Alfonso bid Status Active Problem Clinical Problem Acute Disease or Injury Related Malnutrition Etiology severe, acute malnutrition related to inadequate energy intake Signs/Symptoms as evidenced by unintentional wt loss of 19.4#/12% x 1 month ; estimated PO intake meeting <75% of estimated energy needs > 1 month Status Active Problem Recommendation Dietitian Recommendations/Changes recommend advance diet as tolerated to regular, - texture /consistency per ADMINISTRATION VICE PRESIDENT; Ensure Plus High Protein 120mL 4x/day w/ medpass when diet advanced Alfonso BID for wound healing. Lab / Micro Data Result Diagrams: 10/12/22 05:57 10/12/22 05:57 Labs: Laboratory Results - last 24 hr 10/12/22 05:57: WBC 16.9 H, RBC 3.47 L, Hgb 9.9 L, Hct 31.2 L, MCV 89.9, MCH 28.5, MCHC 31.7 L, RDW Std Deviation 51.9 H, RDW Coeff of Luis 15.7 H, Plt Count 549 H, MPV 10.1, Immature Gran % (Auto) 2.100 H, Neut % (Auto) 84.2 H, Lymph % (Auto) 7.5 L, [place] % (Auto) 4.9, Eos % (Auto) 0.9, Baso % (Auto) 0.4, Absolute Neuts (auto) 14.2 H, Absolute Lymphs (auto) 1.26, Nucleated RBC % 0 10/12/22 05:57: Sodium 138, Potassium 2.7 L*, Chloride 102, Carbon Dioxide 31.0, Anion Gap 5, BUN 7, Creatinine 0.42 L, Estim Creat Clear Calc 66.83, Est GFR (MDRD) Af Amer 256, Est GFR (MDRD) Non-Af 212, BUN/Creatinine Ratio 16.7, Glucose 119 H, Calcium 8.2 L, Magnesium 2.1, Total Bilirubin 0.60, AST 17, ALT 19, Alkaline Phosphatase 96, Total Protein 5.7 L, Albumin 1.6 L, Globulin 4.1, Albumin/Globulin Ratio 0.4 L Micro: Microbiology 10/07/22 03:45 Blood Culture (Wb) - Left Wrist Blood Culture - Final Staphylococcus species 10/07/22 03:23 Blood Culture (Wb) - Left Wrist Bacteria Detection (PCR) - Final Coag Negative Staph 10/07/22 03:23 Blood Culture (Wb) - Left Wrist Blood Culture - Final Staphylococcus hominis hominis 10/07/22 09:00 Wound - Buttock Gram Stain - Final 10/07/22 09:00 Wound - Buttock Wound Culture - Final Streptococcus pyogenes Meth. resistant Staph. aureus 10/07/22 03:50 Urine, Catheterized Urine Culture - Final Presumptive C albicans Meth. resistant Staph. aureus 10/07/22 08:50 Stool Enteric Bacteriology - Final 10/07/22 08:50 Stool C. difficile GDH Antigen & Toxins - Final 10/07/22 08:50 Stool C. difficile DNA Amplification - Final 10/07/22 08:55 Nasal Secretion SARS-CoV-2 & FLU Antigen (Rapid) - Final 10/07/22 03:15 Stool Stool Occult Blood (VIMAL) - Final Occult Blood Positive Physical Exam Const alert, oriented x3 and no apparent distress Constitutional Narrative: frail HEENT normocephalic and head/scalp atraumatic Eyes PERRL and EOMs intact bilaterally Neck no lymphadenopathy and supple Lymph Lymphatic: no lymphadenopathy noted and no lymphedema noted Resp Resp Narrative: Mildly diminished breath sounds bibasally. No wheezes or crackles. On 3 L of oxygen by nasal cannula. Cardio regular rate, regular rhythm, S1 normal heart sound, S2 normal heart sound and no murmurs GI normal to inspection, nondistended, normoactive bowel sounds, soft to palpation, non-tender and non-distended Extremity normal capillary refill, no clubbing, cyanosis or edema and no calf tenderness Skin General Skin Exam: no breakdown Neuro CN's II-XII intact bilaterally, no focal motor deficits, no sensory deficits noted and deep tendon reflexes 2+ bilaterally Motor Exam: strength 5/5 throughout Psych thought process normal and cooperative Appearance: appropriate Assessment & Plan Assessment/Plan (1) Sepsis: (2) GI bleed: PLAN: Plan #UTI * was admitted due to sepsis due to UTI versus decubitus ulcers. * He was noted to have numerous foot wounds and buttock ulcer and foot x-ray showed osteopenia of the heads of the fifth metatarsals. Wound cultures grew strep pyogenes and MRSA. Urine culture grew MRSA and Ursula * Blood cultures 1 out of 2 grew coagulase-negative staph. * WBC remains elevated. Repeat blood cultures pending. On IV vancomycin and Zosyn. * ID consulted. Await recs. * Critical care also on board. * #Hypoxia * Concerning for aspiration. Speech therapy on board. Currently on 3 L of oxygen. * On Lasix. Oxygen requirement appears to be improving as he was on 5 to 6 L of oxygen at bedtime and 5 L during the day. * Breathing treatments of bronchodilators. Titrate oxygen to maintain saturation above 90%. #GI bleed due to bleeding peptic ulcer * He was noted to have positive stool for occult blood during this admission. He had had a history of GI bleed and being seen at [facility] a month prior to this admission for hemorrhagic shock due to bleeding duodenal ulcer. He had several clips placed there during EGD and required 5 units of packed red blood cells during his admission at [facility]. * He is s/p EGD on 10/08/2022 whilst here which showed severe erosive esophagitis and benign-appearing esophageal stenosis which was dilated as well as an oozing duodenal ulcer with pigmented material which was injected and treated with heater probe. * Now off octreotide drip. On IV PPI every 12 hourly. Hemoglobin has remained stable. * GI on board. * #Hypokalemia: Potassium is markedly low at 2.7. Replace aggressively with IV potassium and trend. #Non-STEMI * Had elevated troponins. This was thought to be due to demand ischemia due to his hypoxia. EKG showed no acute ST changes. * Troponin peaked at [birth year]/02/1960 and subsequently trended downwards. #Electrolyte abnormalities: Had hypokalemia and hypomagnesemia which have resolved. #Atherosclerosis of extremities with peripheral vascular disease * Has had a CTA during previous admission which showed severe diffuse atherosclerotic stenosis notably of bilateral iliac and femoral arteries. He is not a good candidate for intervention now. * On high intensity statin. Follow-up with vascular surgery on outpatient basis * Wound care on board * #History of CVA: On high intensity statin and aspirin #Hypertension: BP continues to run on the lower side of normal. BP meds therefore on hold. #Severe protein calorie malnutrition * as evidenced by unintentional wt loss of 19.4#/12% x 1 month with estimated p.o. intake meeting less than 75% of estimated energy needs for more than 1 month. * Dietitian on board. DVT prophylaxis: SCDs Charges/Coding Visit Charges Inpatient E&M: 80394 Subs Hosp L3
--- NOTE | 2022-10-12 12:09 | CASEMGMT ---
Eva is at [facility]. SW explained to Eva and patient that TCU is not willing to take patient. TCU is for patient's that will need 21 days or rehab and patient's will require more than this. Eva is in agreement with patient returning to [facility] at d/c. Crystal IBARRA
[2022-10-12] MEDS: Potassium Chloride 10mEq/100mL 10 MEQ/100 ML IV.SOLN. 80 MEQ IV BOLUS ×2 (12:37→14:27)
--- NOTE | 2022-10-12 13:14 | CASEMGMT ---
Update sent to [facility] Nina Ramon
[2022-10-12] MEDS: DAKIN'S SOL HALF STRENGTH (=0.25%) 1 APPLIC TOPICAL (14:20)
--- NOTE | 2022-10-12 14:43 | PCM.PN.ID ---
Physical Exam Narrative Moved out of icu, feeling ok, no fever Const alert and no apparent distress General Appearance: cooperative Resp normal air movement and clear to auscultation bilaterally Cardio regular rate and regular rhythm GI soft to palpation, non-tender and non-distended Skin Skin Narrative: sacral wound with purulence, erythema ID ID: Route of nutrition/ use of supplements: [] Nutritional Intake: [] IV Site: [] Soto Catheter: [] Assessment & Plan Assessment/Plan (1) Sepsis: PLAN: MR-S. hominis bacteremia. Sacral wound with redness/tunneling, wound cx so far with strep and MRSA. Ucx with yeast and MRSA. Sacral wound with ongoing gross purulence. Will consult plastic surgery. Narrow abx to vanc/unasyn. Cdiff (+) but toxin neg. Having melena with recent duodenal ulcer. Low suspicion for active cdiff at this time, but will monitor while on abx here. Will follow
--- NOTE | 2022-10-12 15:33 | WOUNDNOTE ---
wound photo: right lateral lower leg/ankle/foot
--- NOTE | 2022-10-12 15:34 | WOUNDNOTE ---
wound photo: right foot
--- NOTE | 2022-10-12 15:34 | WOUNDNOTE ---
wound photo: right heel
--- NOTE | 2022-10-12 15:35 | WOUNDNOTE ---
wound photo: left foot
--- NOTE | 2022-10-12 15:36 | ONC.PHONE ---
wound photo: left heel
--- NOTE | 2022-10-12 15:37 | WOUNDNOTE ---
Addendum entered by Veronica Merlos 10/12/22 16:03: left buttock/sacrum Original Note: wound photo: left buttock
--- NOTE | 2022-10-12 15:38 | WOUNDNOTE ---
wound photo: left buttock
[2022-10-12] MEDS: Atorvastatin Calcium 40 MG Tablet PO (21:48)
[2022-10-12] MEDS: Ensure Plus High Protein 120 ML LIQUID PO (21:52)
[2022-10-13] VITALS (13 sets, daily range): BP systolic 97–137; BP diastolic 65–86; PULSE 72–96; RESP 16–20; TEMP 36.4–36.7; O2SAT 89–99; BMI 21.7
[2022-10-13] MEDS: Ipratropium/Albuterol Sulfate 3 ML AMPUL.NEB INHALATION ×3 (06:40→20:20)
[2022-10-13 07:44] LABS: Absolute Lymphocyte Count 1.41 X10^3/uL (0.83-4.51); Absolute Neutrophil Count 15.7 X10^3/uL (2.0-7.7); Basophil# 0.07 X10^3/uL; Basophil% 0.4 % (0-1); Eosinophil# 0.16 X10^3/uL; Eosinophils% 0.9 % (0-5); Hematocrit 32.1 % (40-54); Hemoglobin 10.4 g/dL (13.0-16.5); Lymphocyte # 1.41 X10^3/ul (0.83-4.51); Lymphocyte % 7.6 % (19-41); Mean Corp Hgb Conc 32.4 g/dL (32-36); Mean Corpuscular Hgb 29.1 pg (27.0-32.0); Mean Corpuscular Volume 89.9 fL (80-94); Mean Platelet Vol. 9.9 fl (6.2-12.0); Monocyte# 0.97 X10^3/uL; Monocyte% 5.2 % (0-10); NRBC Flagged by Analyzer 0 % (0-5); Neutrophil # 15.72 X10^3/uL (2.7-7.7); Neutrophil % 84.2 % (47-70); Platelet Count 550 K/mm3 (150-450); RBC Distribution Width CV 15.6 % (11.6-14.6); RBC Distribution Width SD 51.3 fl (35.1-43.9); Red Blood Count 3.57 M/mm3 (4.6-6.2); White Blood Count 18.6 K/mm3 (4.4-11.0)
[2022-10-13 08:07] LABS: ALB/GLOB Ratio 0.4 RATIO (0.9-2.4); AST(SGOT) 24 U/L (15-37); Alanine Aminotransfer ALT/SGPT 25 U/L (16-61); Albumin, Serum 1.6 g/dL (3.2-5.0); Alkaline Phosphatase 99 U/L (45-117); Anion Gap 5 (5-15); BUN 16 mg/dL (7-18); BUN/Creat Ratio 25.5 RATIO (10-20); Chloride 103 mmol/L (98-107); Creatinine, Serum 0.63 mg/dL (0.70-1.30); EST Glomerular Filtration Rate 133 mL/min (>60); Est Glom Filt Rate - Afr Amer 161 mL/min (>60); Estimated Creatinine Clearance 64.53 ml/min; Globulin 4.2 g/dL (2.2-4.2); Glucose 125 mg/dL (74-106); Magnesium 1.5 mg/dL (1.6-2.6); Potassium 3.2 mmol/L (3.5-5.1); Protein, Total 5.8 g/dL (6.4-8.2); Sodium Level 138 mmol/L (136-145)
[2022-10-13 08:15] LABS: Vancomycin, Trough Level 22.7 ug/mL (5.0-15.0)
--- NOTE | 2022-10-13 08:37 | PCM.RX.CS ---
Consult Pharmacy has been consulted to manage selected antiobiotic: Vancomycin Type of Consult: Follow-up Prior Doses of Antibiotics Received/Current Regimen: current dose is vanc 1000mg IV q12h Labs: Sodium 138 mmol/L (136-145) 10/13/22 07:26 Potassium 3.2 mmol/L (3.5-5.1) L 10/13/22 07:26 Chloride 103 mmol/L (98-107) 10/13/22 07:26 Carbon Dioxide 30.0 mmol/L (21.0-32.0) 10/13/22 07:26 Anion Gap 5 (5-15) 10/13/22 07:26 BUN 16 mg/dL (7-18) 10/13/22 07:26 Creatinine 0.63 mg/dL (0.70-1.30) L 10/13/22 07:26 Est GFR (MDRD) Af Amer 161 mL/min (>60) 10/13/22 07:26 Est GFR (MDRD) Non-Af 133 mL/min (>60) 10/13/22 07:26 BUN/Creatinine Ratio 25.5 RATIO (10-20) H 10/13/22 07:26 Glucose 125 mg/dL (74-106) H 10/13/22 07:26 Vancomycin Trough 22.7 ug/mL (5.0-15.0) H 10/13/22 07:26 Microbiology: Microbiology 10/10/22 12:55 Blood Culture (Wb) - Left Wrist Blood Culture - Preliminary No growth in 48 hours. 10/10/22 12:45 Blood Culture (Wb) - Left Hand Blood Culture - Preliminary No growth in 48 hours. 10/07/22 03:45 Blood Culture (Wb) - Left Wrist Blood Culture - Final Staphylococcus species 10/07/22 03:23 Blood Culture (Wb) - Left Wrist Bacteria Detection (PCR) - Final Coag Negative Staph 10/07/22 03:23 Blood Culture (Wb) - Left Wrist Blood Culture - Final Staphylococcus hominis hominis 10/07/22 09:00 Wound - Buttock Gram Stain - Final 10/07/22 09:00 Wound - Buttock Wound Culture - Final Streptococcus pyogenes Meth. resistant Staph. aureus 10/07/22 03:50 Urine, Catheterized Urine Culture - Final Presumptive C albicans Meth. resistant Staph. aureus 10/07/22 08:50 Stool Enteric Bacteriology - Final 10/07/22 08:50 Stool C. difficile GDH Antigen & Toxins - Final 10/07/22 08:50 Stool C. difficile DNA Amplification - Final 10/07/22 08:55 Nasal Secretion SARS-CoV-2 & FLU Antigen (Rapid) - Final 10/07/22 03:15 Stool Stool Occult Blood (VIMAL) - Final Occult Blood Positive Weight used for dosin.4 kg Estimated Creatinine Clearance: 80ml/min Goal Trough: 15-20 mcg/mL Pharmacy Plan for Drug Dosing: The vanc trough drawn at 07:26 today was 22.7. This is above goal but it was drawn at only 10 hours after the previous dose since that was given late. It would have been lower if drawn closer to 12 hours. Nevertheless, will change dose to 750mg IV q12h and will wait and start that at 11:00 this morning. Recheck a trough before the 4th dose. Pharmacy Service will continue to monitor and adjust dosing as required. Follow-Up Labs: Trough Vancomycin Labs to be done on [date and time ordered]: 10/14/22 22:30
[2022-10-13] MEDS: DAKIN'S SOL HALF STRENGTH (=0.25%) 1 APPLIC TOPICAL (09:07)
[2022-10-13] MEDS: Potassium Chloride Oral Tablet 20 MEQ 40 MEQ PO (09:07)
[2022-10-13] MEDS: Ensure Plus High Protein 120 ML LIQUID PO (09:07)
[2022-10-13] MEDS: Pantoprazole Sodium 40 MG Tablet PO ×2 (09:07→21:20)
[2022-10-13] MEDS: Furosemide 40 MG Tablet PO (09:07)
[2022-10-13] MEDS: Juven (unflavored) Packet 1 PACKET PO ×2 (09:07→16:54)
[2022-10-13] MEDS: Sertraline 100 MG Tablet PO (09:07)
[2022-10-13] MEDS: Potassium Chloride Oral Tablet 20 MEQ PO ×2 (09:07→16:54)
--- NOTE | 2022-10-13 10:10 | PN.CC_ITS ---
Assessment & Plan Assessment/Plan (1) GI bleed: (2) Sepsis: PLAN: Plan RECOMMENDATIONS: 1. Antimicrobials per ID recommendations. 2. Diuresis, as tolerated by hemodynamics and renal function. 3. Continue scheduled bronchodilators. 4. Encourage incentive spirometer use and mobilize patient as tolerated. 5. We will sign off from a pulmonary/critical care perspective. Please call with any additional questions. IMPRESSIONS: 1. Sepsis Resolved. Clinical suspicion for decubitus ulcers leading to coag-negative septicemia versus UTI. The patient does have a chronic Soto secondary to urinary retention and was found to have a candiduria. Plan to continue antimicrobials per ID recommendations. The patient remains hemodynamically stable. 2. Type II NSTEMI/chronic systolic CHF Clinical suspicion for demand ischemia in the setting #1. The patient's last echocardiogram showed an EF of 40% with moderate ventricular dysfunction. Plan to continue gentle diuresis as tolerated by hemodynamics and renal function. 3. Decubitus ulcers/history of CVA/hypertension/advanced age/urinary retention/debility Complicates care, management, recovery and prognosis. Wound care is following. Continue home medications as indicated. This note was generated with [employer] dictation software. It may contain incorrect words, spelling, and punctuation that were not noted in checking the note before signing. Subjective Subjective The patient was seen and examined at the bedside this morning. Events from the last 24 hours have been reviewed. The patient is currently afebrile, hemodynamically stable and maintaining appropriate oxygen saturations on room air. Potassium is again low this morning at 3.2. The patient is documented to be overall net -1.6 L for the hospitalization. Objective Data Objective Data The patient's most recent lab work, culture data and imaging studies have all been personally reviewed. Surface echocardiogram from October 02, 2022 demonstrated an ejection fraction of 40% with moderate global LV systolic dysfunction. Vital Signs: Vital Signs Temp Pulse Resp BP Pulse Ox O2 Del Method O2 Flow Rate 97.6 F L 72 16 97/65 96 Room Air 3 10/13/22 09:07 10/13/22 09:07 10/13/22 09:07 10/13/22 09:07 10/13/22 09:07 10/13/22 09:07 10/13/22 08:00 FiO2 40 10/09/22 00:00 Oxygen Flow Rate (L/min) 3 Oxygen Delivery Method Room Air Weight: 155 lb 3.287 oz Body Mass Index (BMI) 21.7 Intake & Output: Intake and Output for Last 24 Hours 10/11/22 10/12/22 10/13/22 23:59 23:59 23:59 Intake Total 1710 / 1710 1618.88 / 1618.88 464 / 464 Output Total 2750 / 2750 4600 / 4600 1300 / 1300 Balance -1040 / -1040 -2981.12 / -2981.12 -836 / -836 Medical Nutrition Assessment Dietitian: Malnutrition Criteria Met Start: 10/07/22 14:13 Freq: Status: Active Protocol: Document 10/09/22 09:32 SLA (Rec: 10/09/22 09:32 [facility] [id number]) Nutrition Malnutrition Evidence of Malnutrition Exists Yes Malnutrition (severe): Chronic Evidenced By Suboptimal Energy Intake ( Severe),Weight Loss (Severe) Intake Problem Increased Nutrient Needs (specify) Etiology protein needs related to skin status Signs/Symptoms as evidenced by PI love heels and R buttock/sacrum - followed by wound nurse; on Alfonso bid Status Active Problem Clinical Problem Acute Disease or Injury Related Malnutrition Etiology severe, acute malnutrition related to inadequate energy intake Signs/Symptoms as evidenced by unintentional wt loss of 19.4#/12% x 1 month ; estimated PO intake meeting <75% of estimated energy needs > 1 month Status Active Problem Recommendation Dietitian Recommendations/Changes recommend advance diet as tolerated to regular, - texture /consistency per SALON/SPA MANAGER; Ensure Plus High Protein 120mL 4x/day w/ medpass when diet advanced Alfonso BID for wound healing. Lab / Micro Data Attestation: I reviewed the patient's lab results. Result Diagrams: 10/14/22 04:40 10/14/22 04:40 Labs: Laboratory Results - last 24 hr 10/13/22 07:26: WBC 18.6 H, RBC 3.57 L, Hgb 10.4 L, Hct 32.1 L, MCV 89.9, MCH 29.1, MCHC 32.4, RDW Std Deviation 51.3 H, RDW Coeff of Luis 15.6 H, Plt Count 550 H, MPV 9.9, Immature Gran % (Auto) 1.700 H, Neut % (Auto) 84.2 H, Lymph % (Auto) 7.6 L, [place] % (Auto) 5.2, Eos % (Auto) 0.9, Baso % (Auto) 0.4, Absolute Neuts (auto) 15.7 H, Absolute Lymphs (auto) 1.41, Nucleated RBC % 0 10/13/22 07:26: Sodium 138, Potassium 3.2 L, Chloride 103, Carbon Dioxide 30.0, Anion Gap 5, BUN 16, Creatinine 0.63 L, Estim Creat Clear Calc 64.53, Est GFR (MDRD) Af Amer 161, Est GFR (MDRD) Non-Af 133, BUN/Creatinine Ratio 25.5 H, Glucose 125 H, Calcium 8.0 L, Magnesium 1.5 L, Total Bilirubin 0.30, AST 24, ALT 25, Alkaline Phosphatase 99, Total Protein 5.8 L, Albumin 1.6 L, Globulin 4.2, Albumin/Globulin Ratio 0.4 L 10/13/22 07:26: Vancomycin Trough 22.7 H Micro: Microbiology 10/10/22 12:55 Blood Culture (Wb) - Left Wrist Blood Culture - Preliminary No growth in 48 hours. 10/10/22 12:45 Blood Culture (Wb) - Left Hand Blood Culture - Preliminary No growth in 48 hours. 10/07/22 03:45 Blood Culture (Wb) - Left Wrist Blood Culture - Final Staphylococcus species 10/07/22 03:23 Blood Culture (Wb) - Left Wrist Bacteria Detection (PCR) - Final Coag Negative Staph 10/07/22 03:23 Blood Culture (Wb) - Left Wrist Blood Culture - Final Staphylococcus hominis hominis 10/07/22 09:00 Wound - Buttock Gram Stain - Final 10/07/22 09:00 Wound - Buttock Wound Culture - Final Streptococcus pyogenes Meth. resistant Staph. aureus 10/07/22 03:50 Urine, Catheterized Urine Culture - Final Presumptive C albicans Meth. resistant Staph. aureus 10/07/22 08:50 Stool Enteric Bacteriology - Final 10/07/22 08:50 Stool C. difficile GDH Antigen & Toxins - Final 10/07/22 08:50 Stool C. difficile DNA Amplification - Final 10/07/22 08:55 Nasal Secretion SARS-CoV-2 & FLU Antigen (Rapid) - Final 10/07/22 03:15 Stool Stool Occult Blood (VIMAL) - Final Occult Blood Positive Physical Exam Const alert and no apparent distress Constitutional Narrative: Resting comfortably in bed. Hard of hearing. General Appearance: cooperative HEENT normocephalic and head/scalp atraumatic Eyes PERRL, EOMs intact bilaterally and conjunctivae normal Neck supple General: trachea midline Chest inspection of chest normal Resp Auscultation: diminished lung sounds; Negative for rales, rhonchi or wheezes Cardio regular rate and regular rhythm GI normal to inspection, nondistended, normoactive bowel sounds Extremity no clubbing, cyanosis or edema Neuro CN's II-XII intact bilaterally and no focal motor deficits Psych cooperative and affect normal Charges/Coding Visit Charges Inpatient E&M: 06614 Subs Hosp L2
--- NOTE | 2022-10-13 11:47 | PN_ITS ---
Subjective Subjective Patient seen and examined. He had no active complaints. He had an uneventful night. Review of systems is otherwise negative. His wbc remains elevated. Objective Data Objective Data Vital Signs: Vital Signs Temp Pulse Resp BP Pulse Ox O2 Del Method O2 Flow Rate 97.6 F L 72 16 97/65 99 Room Air 3 10/13/22 09:07 10/13/22 09:07 10/13/22 09:07 10/13/22 09:07 10/13/22 09:41 10/13/22 09:07 10/13/22 09:41 FiO2 40 10/09/22 00:00 Oxygen Flow Rate (L/min) 3 Oxygen Delivery Method Room Air Weight: 155 lb 3.287 oz Body Mass Index (BMI) 21.7 Intake & Output: Intake and Output for Last 24 Hours 10/11/22 10/12/22 10/13/22 23:59 23:59 23:59 Intake Total 1710 / 1710 1618.88 / 1618.88 464 / 464 Output Total 2750 / 2750 4600 / 4600 1300 / 1300 Balance -1040 / -1040 -2981.12 / -2981.12 -836 / -836 Medical Nutrition Assessment Dietitian: Malnutrition Criteria Met Start: 10/07/22 14:13 Freq: Status: Active Protocol: Document 10/09/22 09:32 GEORGE (Rec: 10/09/22 09:32 [facility] [id number]) Nutrition Malnutrition Evidence of Malnutrition Exists Yes Malnutrition (severe): Chronic Evidenced By Suboptimal Energy Intake ( Severe),Weight Loss (Severe) Intake Problem Increased Nutrient Needs (specify) Etiology protein needs related to skin status Signs/Symptoms as evidenced by PI love heels and R buttock/sacrum - followed by wound nurse; on Alfonso bid Status Active Problem Clinical Problem Acute Disease or Injury Related Malnutrition Etiology severe, acute malnutrition related to inadequate energy intake Signs/Symptoms as evidenced by unintentional wt loss of 19.4#/12% x 1 month ; estimated PO intake meeting <75% of estimated energy needs > 1 month Status Active Problem Recommendation Dietitian Recommendations/Changes recommend advance diet as tolerated to regular, - texture /consistency per WEB SITE SPECIALIST; Ensure Plus High Protein 120mL 4x/day w/ medpass when diet advanced Alfonso BID for wound healing. Lab / Micro Data Result Diagrams: 10/13/22 07:26 10/13/22 07:26 Labs: Laboratory Results - last 24 hr 10/13/22 07:26: WBC 18.6 H, RBC 3.57 L, Hgb 10.4 L, Hct 32.1 L, MCV 89.9, MCH 29.1, MCHC 32.4, RDW Std Deviation 51.3 H, RDW Coeff of Luis 15.6 H, Plt Count 550 H, MPV 9.9, Immature Gran % (Auto) 1.700 H, Neut % (Auto) 84.2 H, Lymph % (Auto) 7.6 L, [place] % (Auto) 5.2, Eos % (Auto) 0.9, Baso % (Auto) 0.4, Absolute Neuts (auto) 15.7 H, Absolute Lymphs (auto) 1.41, Nucleated RBC % 0 10/13/22 07:26: Sodium 138, Potassium 3.2 L, Chloride 103, Carbon Dioxide 30.0, Anion Gap 5, BUN 16, Creatinine 0.63 L, Estim Creat Clear Calc 64.53, Est GFR (MDRD) Af Amer 161, Est GFR (MDRD) Non-Af 133, BUN/Creatinine Ratio 25.5 H, Glucose 125 H, Calcium 8.0 L, Magnesium 1.5 L, Total Bilirubin 0.30, AST 24, ALT 25, Alkaline Phosphatase 99, Total Protein 5.8 L, Albumin 1.6 L, Globulin 4.2, Albumin/Globulin Ratio 0.4 L 10/13/22 07:26: Vancomycin Trough 22.7 H Micro: Microbiology 10/10/22 12:55 Blood Culture (Wb) - Left Wrist Blood Culture - Preliminary No growth in 48 hours. 10/10/22 12:45 Blood Culture (Wb) - Left Hand Blood Culture - Preliminary No growth in 48 hours. 10/07/22 03:45 Blood Culture (Wb) - Left Wrist Blood Culture - Final Staphylococcus species 10/07/22 03:23 Blood Culture (Wb) - Left Wrist Bacteria Detection (PCR) - Final Coag Negative Staph 10/07/22 03:23 Blood Culture (Wb) - Left Wrist Blood Culture - Final Staphylococcus hominis hominis 10/07/22 09:00 Wound - Buttock Gram Stain - Final 10/07/22 09:00 Wound - Buttock Wound Culture - Final Streptococcus pyogenes Meth. resistant Staph. aureus 04/12/23 03:50 Urine, Catheterized Urine Culture - Final Presumptive C albicans Meth. resistant Staph. aureus 10/07/22 08:50 Stool Enteric Bacteriology - Final 10/07/22 08:50 Stool C. difficile GDH Antigen & Toxins - Final 10/07/22 08:50 Stool C. difficile DNA Amplification - Final 10/07/22 08:55 Nasal Secretion SARS-CoV-2 & FLU Antigen (Rapid) - Final 10/07/22 03:15 Stool Stool Occult Blood (VIMAL) - Final Occult Blood Positive Physical Exam Const alert, oriented x3 and no apparent distress Constitutional Narrative: frail HEENT normocephalic and head/scalp atraumatic HEENT Narrative: Hard of hearing Eyes PERRL and EOMs intact bilaterally Neck no lymphadenopathy and supple Lymph Lymphatic: no lymphadenopathy noted and no lymphedema noted Resp Resp Narrative: Mildly diminished breath sounds bibasally. No wheezes or crackles. On 3 L of oxygen by nasal cannula. Cardio regular rate, regular rhythm, S1 normal heart sound, S2 normal heart sound and no murmurs GI normal to inspection, nondistended, normoactive bowel sounds, soft to palpation, non-tender and non-distended Extremity normal capillary refill, no clubbing, cyanosis or edema and no calf tenderness Skin Skin Narrative: has unstageable sacral pressure ulcer, present on admission. Neuro CN's II-XII intact bilaterally, no focal motor deficits, no sensory deficits noted and deep tendon reflexes 2+ bilaterally Motor Exam: strength 5/5 throughout Psych thought process normal and cooperative Appearance: appropriate Assessment & Plan Assessment/Plan (1) Sepsis: (2) GI bleed: PLAN: Plan #UTI * was admitted due to sepsis due to UTI and decubitus ulcers. * He was noted to have numerous foot wounds and buttock ulcer and foot x-ray showed osteopenia of the heads of the fifth metatarsals. Wound cultures grew strep pyogenes and MRSA. Urine culture grew MRSA and Ursula * Blood cultures 1 out of 2 grew coagulase-negative staph. * WBC still elevated. Repeat blood cultures pending. On IV vancomycin and unasyn now * ID on board; Plastic surgery consulted as the sacral decubitus ulcer is still having a discharge and is filled with slough. * Critical care also on board. * #Hypoxia * Concerning for aspiration. Speech therapy on board. Remains on 3 L of oxygen. * On Lasix. Oxygen requirement appears to be improving as he was on 5 to 6 L of oxygen at bedtime and 5 L during the day. * Breathing treatments of bronchodilators. Titrate oxygen to maintain saturation above 90%. #Sacral decubitus ulcer * unstageable. Present on admission * plastic surgery consulted to help with debridement * #GI bleed due to bleeding peptic ulcer * He was noted to have positive stool for occult blood during this admission. He had had a history of GI bleed and being seen at [facility] a month prior to this admission for hemorrhagic shock due to bleeding duodenal ulcer. He had several clips placed there during EGD and required 5 units of packed red blood cells during his admission at [facility]. * He is s/p EGD on 10/08/2022 whilst here which showed severe erosive esophagitis and benign-appearing esophageal stenosis which was dilated as well as an oozing duodenal ulcer with pigmented material which was injected and treated with heater probe. * Now off octreotide drip. On IV PPI every 12 hourly. Hemoglobin has remained stable. * GI on board. * #Hypokalemia:potassium is 3.2 today. Will replace and trend. #Non-STEMI * Had elevated troponins. This was thought to be due to demand ischemia due to his hypoxia. EKG showed no acute ST changes. * Troponin peaked at 08/02/1960 and subsequently trended downwards. #Atherosclerosis of extremities with peripheral vascular disease * Has had a CTA during previous admission which showed severe diffuse atherosclerotic stenosis notably of bilateral iliac and femoral arteries. He is not a good candidate for intervention now. * On high intensity statin. Follow-up with vascular surgery on outpatient basis * Wound care on board * #History of CVA: On high intensity statin and aspirin #Hypertension: Hypotension did improve yesterday, but is running low again today. BP meds on hold. #Severe protein calorie malnutrition * as evidenced by unintentional wt loss of 19.4#/12% x 1 month with estimated p.o. intake meeting less than 75% of estimated energy needs for more than 1 month. * Dietitian on board. * on dietary supplements DVT prophylaxis: SCDs Charges/Coding Visit Charges Inpatient E&M: 55417 Subs Hosp L2
--- NOTE | 2022-10-13 15:31 | PN.ID_ITS ---
Physical Exam Narrative Feeling ok, no fever, no n/v/d. Const alert and no apparent distress Resp normal air movement and clear to auscultation bilaterally Cardio regular rate and regular rhythm GI soft to palpation, non-tender and non-distended Skin Skin Narrative: wound bandaged ID ID: Route of nutrition/ use of supplements: [] Nutritional Intake: [] IV Site: [] Soto Catheter: [] Assessment & Plan Assessment/Plan (1) Sepsis: PLAN: MR-S. hominis bacteremia. Sacral wound with redness/tunneling, wound cx so far with strep and MRSA. Ucx with yeast and MRSA. Sacral wound with ongoing gross purulence. Consulted plastic surgery. Cont vanc/unasyn. Cdiff (+) but toxin neg. Having melena with recent duodenal ulcer. Low suspi cion for active cdiff at this time, but will monitor while on abx here. Will follow
[2022-10-13] MEDS: Atorvastatin Calcium 40 MG Tablet PO (21:20)
[2022-10-13] MEDS: 0.9% Saline Lock 10 ML Syringe IV (21:21)
[2022-10-14] VITALS (9 sets, daily range): BP systolic 108–157; BP diastolic 62–75; PULSE 70–103; RESP 16–18; TEMP 36.4–36.8; O2SAT 92–99; BMI 21.7
[2022-10-14 05:14] LABS: Absolute Lymphocyte Count 1.31 X10^3/uL (0.83-4.51); Absolute Neutrophil Count 14.9 X10^3/uL (2.0-7.7); Basophil% 0.6 % (0-1); Eosinophil# 0.15 X10^3/uL; Eosinophils% 0.8 % (0-5); Hematocrit 30.8 % (40-54); Hemoglobin 9.8 g/dL (13.0-16.5); Lymphocyte # 1.31 X10^3/ul (0.83-4.51); Lymphocyte % 7.4 % (19-41); Mean Corp Hgb Conc 31.8 g/dL (32-36); Mean Corpuscular Hgb 28.7 pg (27.0-32.0); Mean Corpuscular Volume 90.1 fL (80-94); Mean Platelet Vol. 10.1 fl (6.2-12.0); Monocyte# 0.92 X10^3/uL; Monocyte% 5.2 % (0-10); NRBC Flagged by Analyzer 0 % (0-5); Neutrophil # 14.89 X10^3/uL (2.7-7.7); Neutrophil % 84.2 % (47-70); Platelet Count 530 K/mm3 (150-450); RBC Distribution Width SD 52.4 fl (35.1-43.9); Red Blood Count 3.42 M/mm3 (4.6-6.2); White Blood Count 17.7 K/mm3 (4.4-11.0)
[2022-10-14 05:40] LABS: ALB/GLOB Ratio 0.4 RATIO (0.9-2.4); AST(SGOT) 20 U/L (15-37); Alanine Aminotransfer ALT/SGPT 22 U/L (16-61); Albumin, Serum 1.6 g/dL (3.2-5.0); Alkaline Phosphatase 91 U/L (45-117); Anion Gap 5 (5-15); BUN 25 mg/dL (7-18); BUN/Creat Ratio 39.5 RATIO (10-20); Chloride 104 mmol/L (98-107); Creatinine, Serum 0.63 mg/dL (0.70-1.30); EST Glomerular Filtration Rate 132 mL/min (>60); Est Glom Filt Rate - Afr Amer 159 mL/min (>60); Estimated Creatinine Clearance 64.63 ml/min; Globulin 4.2 g/dL (2.2-4.2); Glucose 107 mg/dL (74-106); Potassium 3.4 mmol/L (3.5-5.1); Protein, Total 5.8 g/dL (6.4-8.2); Sodium Level 138 mmol/L (136-145)
[2022-10-14] MEDS: Ipratropium/Albuterol Sulfate 3 ML AMPUL.NEB INHALATION ×2 (06:55→19:36)
[2022-10-14] MEDS: Ensure Plus High Protein 120 ML LIQUID PO (08:21)
[2022-10-14] MEDS: Potassium Chloride Oral Tablet 20 MEQ PO ×2 (08:22→16:42)
[2022-10-14] MEDS: Furosemide 40 MG Tablet PO (08:22)
[2022-10-14] MEDS: Sertraline 100 MG Tablet PO (08:22)
[2022-10-14] MEDS: Juven (unflavored) Packet 1 PACKET PO ×2 (08:22→16:42)
[2022-10-14] MEDS: Pantoprazole Sodium 40 MG Tablet PO ×2 (08:22→22:08)
[2022-10-14] MEDS: DAKIN'S SOL HALF STRENGTH (=0.25%) 1 APPLIC TOPICAL (13:00)
--- NOTE | 2022-10-14 13:30 | PN_ITS ---
Subjective Subjective Patient seen and examined. He had no active complaints. He was sitting up in a chair. REview of systems is otherwise negative. He has remained hemodynamically stable. Objective Data Objective Data Vital Signs: Vital Signs Temp Pulse Resp BP Pulse Ox O2 Del Method O2 Flow Rate 97.6 F L 103 H 18 108/63 96 Nasal Cannula 2 10/14/22 10:10 10/14/22 10:10 10/14/22 10:10 10/14/22 10:10 10/14/22 10:10 10/14/22 10:10 10/14/22 10:10 FiO2 40 10/09/22 00:00 Oxygen Flow Rate (L/min) 2 Oxygen Delivery Method Nasal Cannula Weight: 155 lb 6.814 oz Body Mass Index (BMI) 21.7 Intake & Output: Intake and Output for Last 24 Hours 10/12/22 10/13/22 10/14/22 23:59 23:59 23:59 Intake Total 1618.88 / 1618.88 1913 / 1913 1122 / 1122 Output Total 4600 / 4600 4250 / 4250 1650 / 1650 Balance -2981.12 / -2981.12 -2337 / -2337 -528 / -528 Medical Nutrition Assessment Dietitian: Malnutrition Criteria Met Start: 10/07/22 14:13 Freq: Status: Active Protocol: Document 10/09/22 09:32 GEORGE (Rec: 10/09/22 09:32 GEORGE [id number]) Nutrition Malnutrition Evidence of Malnutrition Exists Yes Malnutrition (severe): Chronic Evidenced By Suboptimal Energy Intake ( Severe),Weight Loss (Severe) Intake Problem Increased Nutrient Needs (specify) Etiology protein needs related to skin status Signs/Symptoms as evidenced by PI love heels and R buttock/sacrum - followed by wound nurse; on Alfonso bid Status Active Problem Clinical Problem Acute Disease or Injury Related Malnutrition Etiology severe, acute malnutrition related to inadequate energy intake Signs/Symptoms as evidenced by unintentional wt loss of 19.4#/12% x 1 month ; estimated PO intake meeting <75% of estimated energy needs > 1 month Status Active Problem Recommendation Dietitian Recommendations/Changes recommend advance diet as tolerated to regular, - texture /consistency per DOOR CLAMP OPERATOR; Ensure Plus High Protein 120mL 4x/day w/ medpass when diet advanced Alfonso BID for wound healing. Lab / Micro Data Result Diagrams: 10/14/22 04:40 10/14/22 04:40 Labs: Laboratory Results - last 24 hr 10/14/22 04:40: WBC 17.7 H, RBC 3.42 L, Hgb 9.8 L, Hct 30.8 L, MCV 90.1, MCH 28.7, MCHC 31.8 L, RDW Std Deviation 52.4 H, RDW Coeff of Luis 16.0 H, Plt Count 530 H, MPV 10.1, Immature Gran % (Auto) 1.800 H, Neut % (Auto) 84.2 H, Lymph % (Auto) 7.4 L, [place] % (Auto) 5.2, Eos % (Auto) 0.8, Baso % (Auto) 0.6, Absolute Neuts (auto) 14.9 H, Absolute Lymphs (auto) 1.31, Nucleated RBC % 0 10/14/22 04:40: Sodium 138, Potassium 3.4 L, Chloride 104, Carbon Dioxide 29.0, Anion Gap 5, BUN 25 H, Creatinine 0.63 L, Estim Creat Clear Calc 64.63, Est GFR (MDRD) Af Amer 159, Est GFR (MDRD) Non-Af 132, BUN/Creatinine Ratio 39.5 H, Glucose 107 H, Calcium 8.0 L, Total Bilirubin 0.40, AST 20, ALT 22, Alkaline Phosphatase 91, Total Protein 5.8 L, Albumin 1.6 L, Globulin 4.2, Albumin/Globulin Ratio 0.4 L Micro: Microbiology 10/10/22 12:55 Blood Culture (Wb) - Left Wrist Blood Culture - Preliminary No growth in 48 hours. 10/10/22 12:45 Blood Culture (Wb) - Left Hand Blood Culture - Preliminary No growth in 48 hours. 10/07/22 03:45 Blood Culture (Wb) - Left Wrist Blood Culture - Final Staphylococcus species 10/07/22 03:23 Blood Culture (Wb) - Left Wrist Bacteria Detection (PCR) - Final Coag Negative Staph 10/07/22 03:23 Blood Culture (Wb) - Left Wrist Blood Culture - Final Staphylococcus hominis hominis 10/07/22 09:00 Wound - Buttock Gram Stain - Final 10/07/22 09:00 Wound - Buttock Wound Culture - Final Streptococcus pyogenes Meth. resistant Staph. aureus 10/07/22 03:50 Urine, Catheterized Urine Culture - Final Presumptive C albicans Meth. resistant Staph. aureus 10/07/22 08:50 Stool Enteric Bacteriology - Final 10/07/22 08:50 Stool C. difficile GDH Antigen & Toxins - Final 10/07/22 08:50 Stool C. difficile DNA Amplification - Final 10/07/22 08:55 Nasal Secretion SARS-CoV-2 & FLU Antigen (Rapid) - Final 10/07/22 03:15 Stool Stool Occult Blood (VIMAL) - Final Occult Blood Positive Physical Exam Const alert, oriented x3 and no apparent distress Constitutional Narrative: frail General Appearance: cooperative HEENT normocephalic and head/scalp atraumatic HEENT Narrative: hard of hearing Eyes PERRL and EOMs intact bilaterally Neck no lymphadenopathy and supple Lymph Lymphatic: no lymphadenopathy noted and no lymphedema noted Resp Resp Narrative: Mildly diminished breath sounds bibasally. No wheezes or crackles. On 3 L of oxygen by nasal cannula. Cardio regular rate, regular rhythm, S1 normal heart sound, S2 normal heart sound and no murmurs GI normal to inspection, nondistended, normoactive bowel sounds, soft to palpation, non-tender and non-distended Extremity normal capillary refill, no clubbing, cyanosis or edema and no calf tenderness Skin Skin Narrative: has unstageable sacral pressure ulcer, present on admission. Intact dressing over sacral ulcer General Skin Exam: no breakdown Neuro CN's II-XII intact bilaterally, no focal motor deficits, no sensory deficits noted and deep tendon reflexes 2+ bilaterally Motor Exam: strength 5/5 throughout Psych thought process normal and cooperative Appearance: appropriate Assessment & Plan Assessment/Plan (1) Sepsis: (2) GI bleed: PLAN: Plan #UTI * was admitted due to sepsis due to UTI and decubitus ulcers. * He was noted to have numerous foot wounds and buttock ulcer and foot x-ray showed osteopenia of the heads of the fifth metatarsals. Wound cultures grew strep pyogenes and MRSA. Urine culture grew MRSA and Ursula * Blood cultures 1 out of 2 grew coagulase-negative staph. * WBC still elevated. Repeat blood cultures pending. On IV vancomycin and unasyn * ID on board; Plastic surgery consulted as the sacral decubitus ulcer is still having a discharge and is filled with slough. * Critical care also on board. * awaiting plastic surgery review * #Hypoxia * Concerning for aspiration. Speech therapy on board. Remains on 3 L of oxygen. * On Lasix. Oxygen requirement appears to be improving as he was on 5 to 6 L of oxygen at bedtime and 5 L during the day. * Breathing treatments of bronchodilators. Titrate oxygen to maintain saturation above 90%. #Sacral decubitus ulcer * unstageable. Present on admission * plastic surgery consulted to help with debridement; awaitint plastic surgery evaluation * #GI bleed due to bleeding peptic ulcer * He was noted to have positive stool for occult blood during this admission. He had had a history of GI bleed and being seen at [facility] a month prior to this admission for hemorrhagic shock due to bleeding duodenal ulcer. He had several clips placed there during EGD and required 5 units of packed red blood cells during his admission at [facility]. * He is s/p EGD on 10/08/2022 whilst here which showed severe erosive esophagitis and benign-appearing esophageal stenosis which was dilated as well as an oozing duodenal ulcer with pigmented material which was injected and treated with heater probe. * Now off octreotide drip. On IV PPI every 12 hourly. Hemoglobin has remained stable. * GI on board. * #Hypokalemia:potassium is 3.4 today. Will replace and trend. #Non-STEMI * Had elevated troponins. This was thought to be due to demand ischemia due to his hypoxia. EKG showed no acute ST changes. * Troponin peaked at 08/02/1960 and subsequently trended downwards. #Atherosclerosis of extremities with peripheral vascular disease * Has had a CTA during previous admission which showed severe diffuse atherosclerotic stenosis notably of bilateral iliac and femoral arteries. He is not a good candidate for intervention now. * On high intensity statin. Follow-up with vascular surgery on outpatient basis * Wound care on board * #History of CVA: On high intensity statin and aspirin #Hypertension: Hypotension did improve yesterday, but is running low again today. BP meds on hold. #Severe protein calorie malnutrition * as evidenced by unintentional wt loss of 19.4% x 1 month with estimated p.o. intake meeting less than 75% of estimated energy needs for more than 1 month. * Dietitian on board. * on dietary supplements DVT prophylaxis: SCDs Charges/Coding Visit Charges Inpatient E&M: 29449 Subs Hosp L2
--- NOTE | 2022-10-14 15:22 | PCM.PN.ID ---
Physical Exam Narrative Feeling about the same. No fever. Wound care reports sacral wound filled with stool every day. Const alert and no apparent distress General Appearance: cooperative Resp normal air movement and clear to auscultation bilaterally Cardio regular rate and regular rhythm GI soft to palpation, non-tender and non-distended Skin Skin Narrative: no new rash ID ID: Route of nutrition/ use of supplements: [] Nutritional Intake: [] IV Site: [] Soto Catheter: [] Assessment & Plan Assessment/Plan (1) Sepsis: PLAN: MR-S. hominis bacteremia. Sacral wound with redness/tunneling, wound cx so far with strep and MRSA. Ucx with yeast and MRSA. Sacral wound with ongoing gross purulence and frequent stool contamination. Consulted plastic surgery. Cont vanc/unasyn. Will also consult gen surg for possible diverting ostomy. Cdiff (+) but toxin neg. Having melena with recent duodenal ulcer. Low suspicion for active cdiff at this time, but will monitor while on abx here. Will follow
--- NOTE | 2022-10-14 17:33 | PCM.CONS.GEN ---
Assessment & Plan Assessment/Plan (1) Stage IV pressure ulcer of sacral region: (2) Decubitus ulcer, stage 4 with infection: (3) Skin ulcer of buttock with necrosis of muscle: (4) Skin necrosis: (5) MRSA (methicillin resistant Staphylococcus aureus) infection: (6) History of stroke: (7) Dependent on walker for ambulation: (8) Smoker: PLAN: Plan Medical records reviewed. Labs and cultures reviewed. CT reviewed. Patient has an infected necrotic MRSA left sacral pressure sore that extends to the bone, Stage IV. I suspect osteomyelitis. The pressure sore is exacerbated by diarrhea with suspected Cdiff that has been contaminating the pressure sore daily making it worse. Patient needs operative intervention to excise all the necrotic tissue in this sacral pressure sore to minimize the infection progressing to a life threatening process. Will send soft tissue and bone to Pathology for analysis to rule out carcinoma and to evaluate for osteomyelitis. Will send soft tissue and bone to Microbiology for culture. A positive culture will necessitate antibiotic therapy. At present, he is on Vancomycin and Zosyn. If osteomyelitis is present, then terminal superintendent IV antibiotics would be necessary. As an outpatient, HBO treatments would be beneficial for osteomyelitis. With continued stool contamination in the sacral pressure sore, a diverting colostomy will become necessary. In the meantime, after the excision, will try and place a VAC in the wound to be changed three times per week at 150 mmHg continuous suction. If a seal cannot be maintained then will change to Dakins dressing changes daily. Anticipate increased metabolic demands from the infection and the size of the pressure sore. Will check a Prealbumin and encourage nutritional supplementation with protein to help the healing process. Patient states he can get up with assist and ambulate somewhat with the walker. Therefore, when the time comes for wound closure with flaps, I will use fasciocutaneous flaps instead of gluteal muscle flaps since detaching the muscle would make ambulation more difficult. I can use the vastus lateralis muscle flap if more bulk is needed to close these pressure sore wounds. Patient would need to be on bedrest for 6 weeks after a flap. Surgery is scheduled for tomorrow under general anesthesia. Patient was informed of the risks and complications of the procedure including alternatives to surgery. These were discussed with the patient personally. Patient voices understanding and wishes to proceed. Potential risks and complications included but not inclusive of bleeding, infection, hematoma, bruising, swelling, loss of sensation to skin, wound breakdown, need for wound care, poor scarring, poor aesthetic outcome, intra operative cardiac or neurologic events, DVT, PE, and reaction to anesthesia. Encouraged patient to stop smoking as it may have deleterious effects on wound healing. HPI Consult Data Date of Consult: 10/14/22 PCP / Referring MD: Dr. Lorenzo MD HPI Narrative Reason for Consultation: Infected necrotric MRSA left sacral pressure sore, Stage IV HPI Narrative: 72 year old man was admitted on 10/07/22 when he was found to have a giant black stool and was diaphoretic and hypotensive at [facility]. He was initially treated in the ICU until medically stabilized. He has been having diarrhea and is thought to maybe having Cdiff. Upon admission, it was noted he had an existing left sacral pressure sore with some tissue necrosis. Over the ensuing several days, the left sacral pressure sore worsened as there has been stool contamination from his diarrhea. WBC on admission was 28.6. Today it was 17.7. Lactate on admission was 2.3 and improved to 0.8. Wound culture showed Streptococcus pyogenes and MRSA. Urine culture showed C. albicans and MRSA. Blood culture showed Staphylococcus hominis hominis (Methicillin resistant). He is being treated with Vancomycin and Zosyn. I was asked to evaluate this patient for surgical options for treatment. [facility] Medical History Anxiety and depression Atherosclerosis of right lower extremity with ulceration Bilateral carotid artery stenosis Cervical spondylosis Cervical stenosis of spinal canal Cognitive dysfunction Decubitus ulcer, stage 4 with infection Dependent on walker for ambulation Dysphagia Essential (primary) hypertension Glucose intolerance (impaired glucose tolerance) History of alcohol abuse History of stroke (08/01/20) Hyperlipidemia Hyponatremia Mass of parotid gland MRSA (methicillin resistant Staphylococcus aureus) infection Non-pressure chronic ulcer of other part of right foot with necrosis of muscle Peripheral vascular disease, unspecified Peripheral vascular occlusive disease Presbycusis of both ears Severe malnutrition Skin necrosis Skin ulcer of buttock with necrosis of muscle Smoker 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 Tobacco dependence due to cigarettes Medical History unable to obtain Home Medications amlodipine 10 mg tablet 10 mg PO DAILY #30 tabs 08/19/20 [Rx Last Taken Unknown] atorvastatin 40 mg tablet 40 mg PO QHS #30 tabs 08/19/20 [Rx Last Taken Unknown] lisinopril 20 mg tablet 20 mg PO QHS 09/07/22 [History Last Taken Unknown] pantoprazole 40 mg tablet,delayed release 40 mg PO BID 09/07/22 [History Last Taken Unknown] sertraline 100 mg tablet 100 mg PO DAILY 09/07/22 [History Last Taken Unknown] tamsulosin 0.4 mg capsule 0.4 mg PO DAILY 09/07/22 [History Last Taken Unknown] albuterol sulfate 2.5 mg/3 mL (0.083 %) solution for nebulization 2.5 mg (3 mL) inhalation Q2H PRN PRN Dyspnea, wheezing #0 mL 09/10/22 [Rx Last Taken Unknown] arginine 7 gram-glutam 7 gram-CaHMB 1.5 uiot-tesbz-jg-min oral pwd pkt (Alfonso (with collagen)) 1 packet PO BIDCM #0 ea 09/10/22 [Rx Last Taken Unknown] ascorbic acid (vitamin C) 500 mg tablet 500 mg PO TIDCM #0 tabs 09/10/22 [Rx Last Taken Unknown] bumetanide 0.5 mg tablet 0.5 mg PO BID #60 tabs 09/10/22 [Rx Last Taken Unknown] ferrous sulfate 300 mg (60 mg iron)/5 mL oral liquid 300 mg (5 mL) PO TIDCM #0 mL 09/10/22 [Rx Last Taken Unknown] guaifenesin 1,200 mg tablet, extended release 12 hr (Mucus Relief ER) 1,200 mg PO BID #0 tabs 09/10/22 [Rx Last Taken Unknown] ipratropium 0.5 mg-albuterol 3 mg (2.5 mg base)/3 mL nebulization soln 3 ml inhalation Q4HWA.RT #0 mL 09/10/22 [Rx Last Taken Unknown] cholecalciferol (vitamin D3) 50 mcg (2,000 unit) capsule 50 mcg PO DAILY 09/22/22 [History Last Taken Unknown] fluconazole 100 mg tablet 100 mg PO DAILY 09/22/22 [History Last Taken Unknown] multivitamin,tx-minerals 1 tab PO DAILY 09/22/22 [History Last Taken Unknown] Allergy/AdvReac Type Severity Reaction Status Date / Time No Known Allergies Allergy Verified 10/07/22 03:00 Family History Father Dementia Mother Dementia Social History household members: none Smoking Status: Current every day smoker tobacco type: cigarettes Tobacco: How many years used: 40 Electronic Cigarette Use: with nicotine second hand exposure: Yes alcohol intake: former year quit: 2020 substance use type: does not use caffeine: Yes (4 cups daily) Type: coffee seatbelt use: sometimes ROS ROS Narrative REVIEW OF SYSTEMS General - Denies fever, fatigue, and weight loss. Has MRSA in the left sacral pressure sore. Eyes - Denies cataracts and glaucoma. ENT - Denies nasal congestion and sore throat. Endocrine - Denies excessive thirst and urination. Skin - Denies suspicious lesions and skin cancer. Has infected necrotic MRSA left sacral pressure sore, Stage IV. Musculoskeletal - Denies joint pain, joint stiffness, weakness of muscles and joints, back pain, and arthritis. Needs a walker for ambulation. Neuro - Denies headaches. Cardiovascular - Denies chest pain, fatigue, and shortness of breath with exertion. History of stroke. Psych - Denies anxiety and depression. Respiratory - Has chronic cough and shortness of breath. Has pneumonia. Patient is a smoker. Gastrointestinal - Denies nausea, vomiting, and constipation. Has diarrhea. Has GI bleed. Hematologic - Denies abnormal bruising and bleeding. Has anemia. Genitourinary - Denies hematuria and urinary frequency. Physical Exam Narrative PHYSICAL EXAMINATION General - Alert and Oriented. HEENT - PERRL. EOMI. Throat is clear. Neck - Supple and nontender. No cervical adenopathy. Lungs - Decreased at the bases. Heart - Regular rate and rhythm. Abdomen - Soft and nondistended. Extremities - no clubbing, cyanosis, or edema. Lower back/sacral area - There is a left sacral pressure sore with skin necrosis. There is exudate at the base of the wound and I suspect necrotic muscle. There is extension to the bone as I suspect osteomyelitis. Measures 4 x 4 cm with undermining in all directions of 2-5 cm. Neuro - CN II-XII grossly intact. Psych - Normal mood and affect. Medical Records Data Attestation: I reviewed the patient's medical records Medical Nutrition Assessment Dietitian: Malnutrition Criteria Met Start: 10/07/22 14:13 Freq: Status: Active Protocol: Document 10/09/22 09:32 SLA (Rec: 10/09/22 09:32 SLA [id number]) Nutrition Malnutrition Evidence of Malnutrition Exists Yes Malnutrition (severe): Chronic Evidenced By Suboptimal Energy Intake ( Severe),Weight Loss (Severe) Intake Problem Increased Nutrient Needs (specify) Etiology protein needs related to skin status Signs/Symptoms as evidenced by PI love heels and R buttock/sacrum - followed by wound nurse; on Alfonso bid Status Active Problem Clinical Problem Acute Disease or Injury Related Malnutrition Etiology severe, acute malnutrition related to inadequate energy intake Signs/Symptoms as evidenced by unintentional wt loss of 19.4#/12% x 1 month ; estimated PO intake meeting <75% of estimated energy needs > 1 month Status Active Problem Recommendation Dietitian Recommendations/Changes recommend advance diet as tolerated to regular, - texture /consistency per SALES PROMOTION DIRECTOR; Ensure Plus High Protein 120mL 4x/day w/ medpass when diet advanced Alfonso BID for wound healing. Lab / Micro Data Attestation: I reviewed the patient's lab results. Result Diagrams: 10/16/22 04:55 10/16/22 04:55 Labs: Laboratory Results - last 24 hr 10/14/22 04:40: WBC 17.7 H, RBC 3.42 L, Hgb 9.8 L, Hct 30.8 L, MCV 90.1, MCH 28.7, MCHC 31.8 L, RDW Std Deviation 52.4 H, RDW Coeff of Luis 16.0 H, Plt Count 530 H, MPV 10.1, Immature Gran % (Auto) 1.800 H, Neut % (Auto) 84.2 H, Lymph % (Auto) 7.4 L, [place] % (Auto) 5.2, Eos % (Auto) 0.8, Baso % (Auto) 0.6, Absolute Neuts (auto) 14.9 H, Absolute Lymphs (auto) 1.31, Nucleated RBC % 0 10/14/22 04:40: Sodium 138, Potassium 3.4 L, Chloride 104, Carbon Dioxide 29.0, Anion Gap 5, BUN 25 H, Creatinine 0.63 L, Estim Creat Clear Calc 64.63, Est GFR (MDRD) Af Amer 159, Est GFR (MDRD) Non-Af 132, BUN/Creatinine Ratio 39.5 H, Glucose 107 H, Calcium 8.0 L, Total Bilirubin 0.40, AST 20, ALT 22, Alkaline Phosphatase 91, Total Protein 5.8 L, Albumin 1.6 L, Globulin 4.2, Albumin/Globulin Ratio 0.4 L
[2022-10-14] MEDS: Atorvastatin Calcium 40 MG Tablet PO (22:09)
[2022-10-14 22:50] LABS: Vancomycin, Trough Level 26.2 ug/mL (5.0-15.0)
[2022-10-15] VITALS (12 sets, daily range): BP systolic 96–159; BP diastolic 51–67; PULSE 75–96; RESP 16–20; TEMP 36.4–36.8; O2SAT 93–99; BMI 21.4
--- NOTE | 2022-10-15 | PRES_PTH ---
PATIENT: NIKOLAS ADAMS LOC: [facility]#:[id number] AGE/SX: 72/M ROOM: [facility] RE10/07/[address]: Dr. Amadou Robledo MD : [id number] BED: 1 DIS: 10/21/2022 SPEC #: [id number] RECD: 10/15/22 16:42 STATUS: ALYSSA REQ #: [id number] JUJU: 10/15/22 00:[address]: Leland Winkler DEPT: SURGICAL PATHOLOGY RECD BY: Rubén Brown ENTERED: 10/16/22 09:55 SP TYPE: PRESS SORE OTHR DR: MD Dr. Dayton Wahl DO Dr. James A Slaby, MD Dr. Lee Ann Baggott, MD Dr. Michael Bortz, MD Dr. Nana Yaa Koram, MD Dr. Paul Nielsen, MD Dr. Paige Pierce, MD Dr. Robert Leininger, MD Dr. Tanmay Panchabhai, MD Christina Muller, SOLUTIONS CONSULTANT-C Tissues: A - Ischium, NOS B - Ischium, NOS Procedures: Decalcification bone/plaque Surgery Specimen Level III Surgery Specimen Level V Comments: @ Ordering doctor for DEC edited from to @ by CLAY at 10/16/22 9612 @ Ordering doctor for SUIV edited from to @ by CLAY at 10/16/22 1337 @ Submitting doctor edited from to @ marisol WILLIAMSON at 10/16/22 1337 HEADER OPERATION: Excision of necrotic sacral pressure sore, stage I PRE-OP DIAGNOSIS: Sacral decubitus ulcer TISSUE SUBMITTED: A ? Tissue left sacral, B ? Bone left sacral MICROSCOPIC DIAGNOSIS A. Skin and soft tissue of left sacral region, excision: Ulceration with associated acute and chronic inflammation, granulation and fat necrosis. B. Bone of left sacrum, biopsy: Trilineage hematopoiesis. Focal reparative and reactive change. No evidence of acute osteomyelitis. AM:nael 10/21/2022 MICROSCOPIC DESCRIPTION Slides are reviewed. GROSS DESCRIPTION A - Received in fixative is one container labeled with the patient's name and designated soft tissue left sacral. The specimen consists of an ovoid piece of barillas-white skin measuring 8.5 x 6.0 cm and up to 2.0 cm in thickness. A central defect with area of ulceration is noted measuring 3.0 cm in greatest dimension. Also present in the container is a second piece of skin with underlying tissue measuring 5.0 x 1.7 x 3.0 cm. Also present in the container are detached pieces of adipose tissue measuring in aggregate 7.0 x 6.0 x 2.0 cm. Senior Research Executive sections are submitted in three cassettes. B - Received in fixative is one container labeled with the patient's name and designated bone left sacral. The specimen consists of five variable sized pieces of bone measuring in aggregate 2.5 x 2.5 x 0.5 cm. The entire specimen is submitted in one cassette after decalcification. / SJ:rg 10/16/2022 TC:2 CPT: 63953, 90468, [id number]
--- NOTE | 2022-10-15 04:16 | PCM.RX.CS ---
Consult Pharmacy has been consulted to manage selected antiobiotic: Vancomycin Type of Consult: Follow-up Labs: Sodium 138 mmol/L (136-145) 10/14/22 04:40 Potassium 3.4 mmol/L (3.5-5.1) L 10/14/22 04:40 Chloride 104 mmol/L (98-107) 10/14/22 04:40 Carbon Dioxide 29.0 mmol/L (21.0-32.0) 10/14/22 04:40 Anion Gap 5 (5-15) 10/14/22 04:40 BUN 25 mg/dL (7-18) H 10/14/22 04:40 Creatinine 0.63 mg/dL (0.70-1.30) L 10/14/22 04:40 Est GFR (MDRD) Af Amer 159 mL/min (>60) 10/14/22 04:40 Est GFR (MDRD) Non-Af 132 mL/min (>60) 10/14/22 04:40 BUN/Creatinine Ratio 39.5 RATIO (10-20) H 10/14/22 04:40 Glucose 107 mg/dL (74-106) H 10/14/22 04:40 Vancomycin Trough 26.2 ug/mL (5.0-15.0) H 10/14/22 22:07 Microbiology: Microbiology 10/10/22 12:55 Blood Culture (Wb) - Left Wrist Blood Culture - Preliminary No growth in 48 hours. 10/10/22 12:45 Blood Culture (Wb) - Left Hand Blood Culture - Preliminary No growth in 48 hours. 10/07/22 03:45 Blood Culture (Wb) - Left Wrist Blood Culture - Final Staphylococcus species 10/07/22 03:23 Blood Culture (Wb) - Left Wrist Bacteria Detection (PCR) - Final Coag Negative Staph 10/07/22 03:23 Blood Culture (Wb) - Left Wrist Blood Culture - Final Staphylococcus hominis hominis 10/07/22 09:00 Wound - Buttock Gram Stain - Final 10/07/22 09:00 Wound - Buttock Wound Culture - Final Streptococcus pyogenes Meth. resistant Staph. aureus 10/07/22 03:50 Urine, Catheterized Urine Culture - Final Presumptive C albicans Meth. resistant Staph. aureus 10/07/22 08:50 Stool Enteric Bacteriology - Final 10/07/22 08:50 Stool C. difficile GDH Antigen & Toxins - Final 10/07/22 08:50 Stool C. difficile DNA Amplification - Final 10/07/22 08:55 Nasal Secretion SARS-CoV-2 & FLU Antigen (Rapid) - Final 10/07/22 03:15 Stool Stool Occult Blood (VIMAL) - Final Occult Blood Positive Goal Trough: 15-20 mcg/mL Pharmacy Plan for Drug Dosing: Pharmacy Service will continue to monitor and adjust dosing as required. TROUGH 26.2 @ 12 HRS. HOLD DOSE AND DRAW RANDOM LEVEL IN 18 HOURS Follow-Up Labs: Trough Vancomycin Labs to be done on [date and time ordered]: 10/15 @ 1600 RANDOM
--- NOTE | 2022-10-15 05:55 | EKG12_ITS ---
Test Reason : PRE-OP Blood Pressure : / mmHG Vent. Rate : 087 BPM Atrial Rate : 087 BPM P-R Int : 156 ms QRS Dur : 082 ms QT Int : 392 ms P-R-T Axes : 049 -62 017 degrees QTc Int : 471 ms Sinus rhythm with Premature atrial complexes with Aberrant conduction Left axis deviation Pulmonary disease pattern Abnormal ECG When compared with ECG of 07-OCT-2022 03:21, Aberrant conduction is now Present Confirmed by SHAHNAZ SCHMID, GERTRUDE ([id number]), film editor TIFFANI WHITE ([id number]) on 10/19/2022 1:55:00 PM Referred By: Marleen Funk Confirmed By:GERTRUDE CHRISTIE MD
[2022-10-15 06:12] LABS: Absolute Lymphocyte Count 1.55 X10^3/uL (0.83-4.51); Basophil# 0.12 X10^3/uL; Basophil% 0.7 % (0-1); Eosinophil# 0.14 X10^3/uL; Eosinophils% 0.8 % (0-5); Hematocrit 31.8 % (40-54); Hemoglobin 10.1 g/dL (13.0-16.5); Lymphocyte # 1.55 X10^3/ul (0.83-4.51); Lymphocyte % 8.6 % (19-41); Mean Corp Hgb Conc 31.8 g/dL (32-36); Mean Corpuscular Hgb 29.1 pg (27.0-32.0); Mean Corpuscular Volume 91.6 fL (80-94); Mean Platelet Vol. 10.6 fl (6.2-12.0); Monocyte# 0.99 X10^3/uL; Monocyte% 5.5 % (0-10); NRBC Flagged by Analyzer 0 % (0-5); Neutrophil # 14.95 X10^3/uL (2.7-7.7); Neutrophil % 83.1 % (47-70); Platelet Count 533 K/mm3 (150-450); RBC Distribution Width CV 15.9 % (11.6-14.6); RBC Distribution Width SD 53.1 fl (35.1-43.9); Red Blood Count 3.47 M/mm3 (4.6-6.2)
[2022-10-15 06:47] LABS: Anion Gap 3 (5-15); BUN 24 mg/dL (7-18); BUN/Creat Ratio 30.7 RATIO (10-20); Calcium,Total 8.3 mg/dL (8.5-10.1); Chloride 105 mmol/L (98-107); Creatinine, Serum 0.78 mg/dL (0.70-1.30); EST Glomerular Filtration Rate 103 mL/min (>60); Est Glom Filt Rate - Afr Amer 125 mL/min (>60); Glucose 106 mg/dL (74-106); Potassium 2.9 mmol/L (3.5-5.1); Sodium Level 138 mmol/L (136-145)
[2022-10-15] MEDS: Ipratropium/Albuterol Sulfate 3 ML AMPUL.NEB INHALATION ×3 (06:59→19:26)
[2022-10-15 08:22] LABS: Magnesium 1.3 mg/dL (1.6-2.6)
[2022-10-15] MEDS: Potassium Chloride 10mEq/100mL 10 MEQ/100 ML IV.SOLN. 100 MEQ IV BOLUS ×2 (09:03→12:58)
[2022-10-15] MEDS: Potassium Chloride 10mEq/100mL 10 MEQ/100 ML IV.SOLN. 80 MEQ IV BOLUS ×2 (10:23→11:47)
[2022-10-15] MEDS: DAKIN'S SOL HALF STRENGTH (=0.25%) 1 APPLIC TOPICAL (11:04)
--- NOTE | 2022-10-15 13:58 | PN_ITS ---
Subjective Subjective Patient seen and examined. He has no active complaints. He had an uneventful night. Review of systems is otherwise negative. He is due for surgery by plastic surgery today. Objective Data Objective Data Vital Signs: Vital Signs Temp Pulse Resp BP Pulse Ox O2 Del Method O2 Flow Rate 97.6 F L 88 20 H 132/66 H 97 Room Air 2 10/15/22 10:00 10/15/22 13:09 10/15/22 13:09 10/15/22 10:00 10/15/22 10:00 10/15/22 13:30 10/14/22 13:55 FiO2 40 10/09/22 00:00 Oxygen Flow Rate (L/min) 2 Oxygen Delivery Method Room Air Weight: 153 lb 7.068 oz Body Mass Index (BMI) 21.4 Intake & Output: Intake and Output for Last 24 Hours 10/13/22 10/14/22 10/15/22 23:59 23:59 23:59 Intake Total 1913 / 1913 2066 / 2066 412.00 / 412.00 Output Total 4250 / 4250 2450 / 2450 2500 / 2500 Balance -2337 / -2337 -384 / -384 -2088.00 / -2088.00 Medical Nutrition Assessment Dietitian: Malnutrition Criteria Met Start: 10/07/22 14:13 Freq: Status: Active Protocol: Document 10/09/22 09:32 GEORGE (Rec: 10/09/22 09:32 GEORGE [id number]) Nutrition Malnutrition Evidence of Malnutrition Exists Yes Malnutrition (severe): Chronic Evidenced By Suboptimal Energy Intake ( Severe),Weight Loss (Severe) Intake Problem Increased Nutrient Needs (specify) Etiology protein needs related to skin status Signs/Symptoms as evidenced by PI love heels and R buttock/sacrum - followed by wound nurse; on Alfonso bid Status Active Problem Clinical Problem Acute Disease or Injury Related Malnutrition Etiology severe, acute malnutrition related to inadequate energy intake Signs/Symptoms as evidenced by unintentional wt loss of 19.4#/12% x 1 month ; estimated PO intake meeting <75% of estimated energy needs > 1 month Status Active Problem Recommendation Dietitian Recommendations/Changes recommend advance diet as tolerated to regular, - texture /consistency per DIRECTOR CASE MANAGEMENT; Ensure Plus High Protein 120mL 4x/day w/ medpass when diet advanced Alfonso BID for wound healing. Lab / Micro Data Result Diagrams: 10/15/22 05:05 10/15/22 05:05 Labs: Laboratory Results - last 24 hr 10/14/22 22:07: Vancomycin Trough 26.2 H 10/15/22 05:05: WBC 18.0 H, RBC 3.47 L, Hgb 10.1 L, Hct 31.8 L, MCV 91.6, MCH 29.1, MCHC 31.8 L, RDW Std Deviation 53.1 H, RDW Coeff of Luis 15.9 H, Plt Count 533 H, MPV 10.6, Immature Gran % (Auto) 1.300 H, Neut % (Auto) 83.1 H, Lymph % (Auto) 8.6 L, [place] % (Auto) 5.5, Eos % (Auto) 0.8, Baso % (Auto) 0.7, Absolute Neuts (auto) 15.0 H, Absolute Lymphs (auto) 1.55, Nucleated RBC % 0 10/15/22 05:05: Sodium 138, Potassium 2.9 L, Chloride 105, Carbon Dioxide 30.0, Anion Gap 3 L, BUN 24 H, Creatinine 0.78, Estim Creat Clear Calc 63.80, Est GFR (MDRD) Af Amer 125, Est GFR (MDRD) Non-Af 103, BUN/Creatinine Ratio 30.7 H, Gl ucose 106, Calcium 8.3 L 10/15/22 05:05: Magnesium 1.3 L Micro: Microbiology 10/10/22 12:55 Blood Culture (Wb) - Left Wrist Blood Culture - Preliminary No growth in 48 hours. 10/10/22 12:45 Blood Culture (Wb) - Left Hand Blood Culture - Preliminary No growth in 48 hours. 10/07/22 03:45 Blood Culture (Wb) - Left Wrist Blood Culture - Final Staphylococcus species 10/07/22 03:23 Blood Culture (Wb) - Left Wrist Bacteria Detection (PCR) - Final Coag Negative Staph 10/07/22 03:23 Blood Culture (Wb) - Left Wrist Blood Culture - Final Staphylococcus hominis hominis 10/07/22 09:00 Wound - Buttock Gram Stain - Final 10/07/22 09:00 Wound - Buttock Wound Culture - Final Streptococcus pyogenes Meth. resistant Staph. aureus 10/07/22 03:50 Urine, Catheterized Urine Culture - Final Presumptive C albicans Meth. resistant Staph. aureus 10/07/22 08:50 Stool Enteric Bacteriology - Final 10/07/22 08:50 Stool C. difficile GDH Antigen & Toxins - Final 10/07/22 08:50 Stool C. difficile DNA Amplification - Final 10/07/22 08:55 Nasal Secretion SARS-CoV-2 & FLU Antigen (Rapid) - Final 10/07/22 03:15 Stool Stool Occult Blood (VIMAL) - Final Occult Blood Positive Physical Exam Const alert, oriented x3 and no apparent distress Constitutional Narrative: frail General Appearance: cooperative HEENT normocephalic and head/scalp atraumatic Eyes PERRL and EOMs intact bilaterally Neck no lymphadenopathy and supple Lymph Lymphatic: no lymphadenopathy noted and no lymphedema noted Resp Resp Narrative: Mildly diminished breath sounds bibasally. No wheezes or crackles. On room air today. Cardio regular rate, regular rhythm, S1 normal heart sound, S2 normal heart sound and no murmurs GI normal to inspection, nondistended, normoactive bowel sounds, soft to palpation, non-tender and non-distended Extremity normal capillary refill, no clubbing, cyanosis or edema and no calf tenderness Skin Skin Narrative: has unstageable sacral pressure ulcer, present on admission. Intact dressing over sacral ulcer General Skin Exam: no breakdown Neuro CN's II-XII intact bilaterally, no focal motor deficits, no sensory deficits noted and deep tendon reflexes 2+ bilaterally Motor Exam: strength 5/5 throughout Psych thought process normal and cooperative Appearance: appropriate Assessment & Plan Assessment/Plan (1) Sepsis: (2) GI bleed: PLAN: Plan #UTI * was admitted due to sepsis due to UTI and decubitus ulcers. * He was noted to have numerous foot wounds and buttock ulcer and foot x-ray showed osteopenia of the heads of the fifth metatarsals. Wound cultures grew strep pyogenes and MRSA. Urine culture grew MRSA and Ursula * Blood cultures 1 out of 2 grew coagulase-negative staph. * WBC still elevated and is 18 today. Repeat blood cultures pending. On IV vancomycin and unasyn * ID on board; = * Critical care also on board. * for surgery today * #Hypoxia * Concerning for aspiration. Speech therapy on board. * weaned off oxygen, and on room air. * Breathing treatments of bronchodilators. Titrate oxygen to maintain saturation above 90%. #Sacral decubitus ulcer * unstageable. Present on admission * for debridement by plastic surgery today * #GI bleed due to bleeding peptic ulcer * He was noted to have positive stool for occult blood during this admission. He had had a history of GI bleed and being seen at [facility] a month prior to this admission for hemorrhagic shock due to bleeding duodenal ulcer. He had several clips placed there during EGD and required 5 units of packed red blood cells during his admission at [facility]. * He is s/p EGD on 10/08/2022 whilst here which showed severe erosive esophagitis and benign-appearing esophageal stenosis which was dilated as well as an oozing duodenal ulcer with pigmented material which was injected and treated with heater probe. * Now off octreotide drip. On IV PPI every 12 hourly. Hemoglobin has remained stable. * GI on board. * #Hypokalemia:potassium is 2.9 today. WIll replace and trend. #Hypomagnesemia: Mg is 1.3. Will replace and trend. #Non-STEMI * Had elevated troponins. This was thought to be due to demand ischemia due to his hypoxia. EKG showed no acute ST changes. * Troponin peaked at 08/02/1960 and subsequently trended downwards. #Atherosclerosis of extremities with peripheral vascular disease * Has had a CTA during previous admission which showed severe diffuse atherosclerotic stenosis notably of bilateral iliac and femoral arteries. He is not a good candidate for intervention now. * On high intensity statin. Follow-up with vascular surgery on outpatient basis * Wound care on board * #History of CVA: On high intensity statin and aspirin #Hypertension: resolved. Will resume BP meds #Severe protein calorie malnutrition * as evidenced by unintentional wt loss of 19.4% x 1 month with estimated p.o. intake meeting less than 75% of estimated energy needs for more than 1 month. * Dietitian on board. * on dietary supplements DVT prophylaxis: SCDs Charges/Coding Visit Charges Inpatient E&M: 70649 Subs Hosp L2
[2022-10-15] MEDS: Lidocaine 1% /Epi 1:100 (20ml) 20 ML Vial (16:30)
--- NOTE | 2022-10-15 16:39 | OP.PCM_ITS ---
Problems Associated Problem List Diagnoses (1) Stage IV pressure ulcer of sacral region: (2) Decubitus ulcer, stage 4 with infection: (3) Skin ulcer of buttock with necrosis of muscle: (4) Skin necrosis: (5) MRSA (methicillin resistant Staphylococcus aureus) infection: (6) History of stroke: (7) Dependent on walker for ambulation: (8) Smoker: (9) Osteomyelitis, pelvis: Report of Operation Date of Procedure: 10/15/22 Pre-Operative Diagnosis: 1. Infected necrotic MRSA left sacral pressure sore with underlying necrosis of muscle, Stage IV. 2. Skin necrosis. 3. MRSA. 4. History of stroke. 5. Dependent of walker for ambulation. 6. Smoker. Post-Operative Diagnosis: Same. Surgery/Procedure Performed:: Excision infected necrotic MRSA left sacral pressure sore with underlying necrosis of muscle, Stage IV, with partial ostectomy for osteomyelitis. Description of Surgical Findings:: 72 year old man was admitted on 10/07/22 when he was found to have a giant black stool and was diaphoretic [facility] hypot[facility] at [facility].? He was initially treated in the ICU until medically stabilized.? He has been having diarrhea and is thought to maybe having Cdiff. ? Upon admission, it was noted he had an existing left sacral pressure sore with some tissue necrosis.? Over the ensuing several days, the left sacral pressure sore worsened as there has been stool contamination from his diarrhea.? WBC on admission was 28.6.? Today it was 17.7.? Lactate on admission was 2.3 and improved to 0.8.? Wound culture showed Streptococcus pyogenes and MRSA.? Urine culture showed C. albicans and MRSA.? Blood culture showed Staphylococcus hominis hominis (Methicillin resistant).? He was treated with Vancomycin and Zosyn initially, and it has been narrowed to Vancomycin and Unasyn.? I was asked to evaluate this patient for surgical options for treatment. Patient was informed of the risks and complications of the procedure including alternatives to surgery. These were discussed with the patient personally. Patient voices understanding and wishes to proceed. Potential risks and complications included but not inclusive of bleeding, infection, hematoma, bruising, swelling, prolonged need for drains, loss of sensation to skin, partial or complete loss of skin flap and/or nipple graft, wound breakdown, need for wound care, poor scarring, poor aesthetic outcome, intra operative cardiac or neurologic events, DVT, PE, and reaction to anesthesia. Encouraged patient to stop smoking as it may have deleterious effects on wound healing. Size of left sacral wound - 9 x 13 x 3 cm. Surgeon: Leland Winkler MD gum dipper: None Type of Anesthesia: General Anesthesiologist: Shankar Mojica MD and Deonte Parrish CRNA Specimen's removed: 1. Infected necrotic MRSA left sacral pressure sore, soft tissue, to Pathology and Microbiology. 2. Infected necrotic MRSA left sacral pressure sore, sacral bone, to Pathology and Microbiology. Drains: None. Estimated Blood Loss (mL): 150. Description of Procedure: Patient was taken to OR in supine position and was placed under general anesthesia. The sacral area was prepped and draped in the usual fashion. SCD's were placed for DVT prophylaxis. Perioperative antibiotics were given intravenously. Using xylocaine with epinephrine, the infected necrotic MRSA left sacral pressure sore was infiltrated. After waiting 5 minutes for the anesthetic to take effect, I made an oblong incision around the pressure sore. The incision extended past the ulcer opening because of undermining, 2-5 cm, in all directions. Incision was carried through the subcutaneous tissue into the muscle. Some pus was seen. A lot of fat necrosis was noted. The fat necrosis was excised and debrided. The underlying left gluteus muscle looked grayish and necrotic. Most of the muscle was sharply excised and debrided which included necrotic muscle. This may affect his ability to use the walker for ambulation. Physical Therapy for strengthening and ambulation will be ordered as an outpatient. The sacral bone was now exposed at the base of the ulcer. Using rongeurs, I proceeded with a partial ostectomy for osteomyelitis. Several hobbies and crafts sales representative samples (around 12 bony samples) were obtained. A rasp was used to smooth out the bony edges. Clinically he has osteomyelitis. Will await Pathology confirmation. The rest of the necrotic and exudative soft tissue was excised. The pressure sore was irrigated with saline Hemostasis was obtained with electrocautery. Half the soft tissue and half the bone will be sent to Pathology for analysis to rule out carcinoma and to evaluate for osteomyelitis. Half the soft tissue and half the bone will be sent to Microbiology for culture. A positive culture will necessitate antibiotic therapy. The size of the left sacral pressure sore wound after excision of both soft tissue and bone - 9 x 13 x 3 or 117 cm2. The left sacral pressure sore wound was then packed with Mepitel nonadherent dressing followed by Kerlix gauze and Betadine. This was followed with a dry Kerlix gauze and ABD pads with Medipore tape compression dressing. Patient tolerated the procedure well and was sent to PACU in satisfactory condition. Patient will be sent upstairs for continued postop care. Wound VAC will be placed tomorrow. There is safe distance at the present time that I think a VAC will work and maintain a seal. If maintaining a seal or there is continued stool contamination, then he will need a diverting colostomy to help the healing process. If the operative cultures come back positive and the Pathology shows osteomyelitis, then superintendent marine oil terminal antibiotic therapy would be needed (maybe IV antibiotics through a PICC line). At present, he is on Vancomycin and Unasyn. For chronic osteomyelitis, he would also be a candidate for HBO treatments. Eventual wound coverage with gluteal fasciocutaneous flaps and maybe a vastus lateralis muscle flap with skin grafting will take place after the infection has been treated, and his nutrition is maximized, and he stops smoking, and he has a diverting colostomy. He would need to be on bedrest for 6 weeks. After corina carreno, [facility]. Grafts/Implants Used: None. Procedure Start Time: 16:05 Procedure Stop Time: 16:37 Complications None. Admit VTE Documentation VTE Present on Admission: No VTE Mechan Device Prophylaxis: SCD's VTE Pharm Prophylaxis ordered?: No Addendum Addendum: Surgery Charges CPT - 30487 ICD-10 - L89.154, L98.413, L08.9, A49.02, I96, M86.9, Z99.89, Z86.73, F17.200
[2022-10-15] MEDS: Magnesium Sulfate 4gm/100mL 4 GM/100 ML IV.SOLN. IV (17:49)
[2022-10-15] MEDS: Pantoprazole Sodium 40 MG Tablet PO ×2 (18:01→21:29)
[2022-10-15] MEDS: Furosemide 40 MG Tablet PO (18:01)
[2022-10-15] MEDS: amLODIPine 10 MG Tablet PO (18:01)
[2022-10-15] MEDS: Sertraline 100 MG Tablet PO (18:01)
[2022-10-15] MEDS: Lisinopril 20 MG Tablet PO (18:01)
[2022-10-15 18:42] LABS: Vancomycin, Random Level 15.6 ug/mL (0.0-15.0)
--- NOTE | 2022-10-15 19:01 | PCM.RX.CS ---
Consult Pharmacy has been consulted to manage selected antiobiotic: Vancomycin Type of Consult: Follow-up Prior Doses of Antibiotics Received/Current Regimen: Medications Discontinued Medications Vancomycin HCl 750 mg/ Sodium (Chloride) 265 mls @ 250 mls/hr IV Q12H RUPAL Last Admin: 10/15/22 00:04 Dose: Not Given Labs: Sodium 138 mmol/L (136-145) 10/15/22 05:05 Potassium 2.9 mmol/L (3.5-5.1) L 10/15/22 05:05 Chloride 105 mmol/L (98-107) 10/15/22 05:05 Carbon Dioxide 30.0 mmol/L (21.0-32.0) 10/15/22 05:05 Anion Gap 3 (5-15) L 10/15/22 05:05 BUN 24 mg/dL (7-18) H 10/15/22 05:05 Creatinine 0.78 mg/dL (0.70-1.30) 10/15/22 05:05 Est GFR (MDRD) Af Amer 125 mL/min (>60) 10/15/22 05:05 Est GFR (MDRD) Non-Af 103 mL/min (>60) 10/15/22 05:05 BUN/Creatinine Ratio 30.7 RATIO (10-20) H 10/15/22 05:05 Glucose 106 mg/dL (74-106) 10/15/22 05:05 Vancomycin Trough 26.2 ug/mL (5.0-15.0) H 10/14/22 22:07 Random Vancomycin 15.6 ug/mL (0.0-15.0) H 10/15/22 18:00 Microbiology: Microbiology 10/10/22 12:55 Blood Culture (Wb) - Left Wrist Blood Culture - Final No growth in 5 days. 10/10/22 12:45 Blood Culture (Wb) - Left Hand Blood Culture - Final No growth in 5 days. 10/07/22 03:45 Blood Culture (Wb) - Left Wrist Blood Culture - Final Staphylococcus species 10/07/22 03:23 Blood Culture (Wb) - Left Wrist Bacteria Detection (PCR) - Final Coag Negative Staph 10/07/22 03:23 Blood Culture (Wb) - Left Wrist Blood Culture - Final Staphylococcus hominis hominis 10/07/22 09:00 Wound - Buttock Gram Stain - Final 10/07/22 09:00 Wound - Buttock Wound Culture - Final Streptococcus pyogenes Meth. resistant Staph. aureus 10/07/22 03:50 Urine, Catheterized Urine Culture - Final Presumptive C albicans Meth. resistant Staph. aureus 10/07/22 08:50 Stool Enteric Bacteriology - Final 10/07/22 08:50 Stool C. difficile GDH Antigen & Toxins - Final 10/07/22 08:50 Stool C. difficile DNA Amplification - Final 10/07/22 08:55 Nasal Secretion SARS-CoV-2 & FLU Antigen (Rapid) - Final 10/07/22 03:15 Stool Stool Occult Blood (VIMAL) - Final Occult Blood Positive Goal Trough: 15-20 mcg/mL Pharmacy Plan for Drug Dosing: Vancomycin 32 hour level within goal range. Re-start vancomycin 1000mg IV q24h and re-check trough prior to 3rd dose. Pharmacy Service will continue to monitor and adjust dosing as required. Follow-Up Labs: Trough Vancomycin - 10/17 @ 1930
--- NOTE | 2022-10-15 19:18 | EX.PCM.CON.S ---
Assessment & Plan Assessment/Plan (1) Decubitus ulcer of sacral region, unstageable: PLAN: This is a 72-year-old male with an unstageable sacral decubitus ulcer due for debridement by plastic surgery later today. I have been consulted to consider diverting colostomy for patient to hopefully avoid further fecal stream contamination. I have shared the rationale for the consultation, and elicited patient's willingness to undergo this procedure. He states that he is not inclined at this time under any circumstances. I did share with him that this procedure should be thought of as a permanent change should he change his mind with respect to this decision. Based on my examination of the patient's wound I do believe there is strong potential for him to have a landing/seal zone for negative pressure wound VAC therapy superior to the anus which may serve to accomplish the same goal of excluding fecal contamination. Patient granted permission to visit postdebridement, but at this time patient is refusing further discussion on colostomy. HPI Consult Data Date of Consult: 10/15/22 HPI Narrative Reason for Consultation: Consideration of diverting colostomy HPI Narrative: NIKOLAS VILLASEÑOR, is a 72 M with past medical history significant for bilateral ELLEN, EtOH abuse, tobacco use, hypertension, CVA, HLD, PVD, COPD, who presented to [facility] from his intermediate on 10/07/2022 with signs of melena, hypotension, and possible sepsis. He had been recently treated in outside hospital for staph hominis bacteremia. He remained bacteremic so a infectious work-up was undertaken. Patient was early on noted to have a unstageable sacral decubitus ulcer that was swabbed, but also was almost daily found to contain fecal material with the daily dressing changes. Given its unstageable appearance, and the frequent cross-contamination both plastic surgery and general surgery were consulted for debridement and consideration of diverting colostomy, respectively. Plastic surgery evaluation was pending at the time of my visit to Mr. Villaseñor, but I am informed that patient is due for operative invention intervention later today with wound debridement. For his part patient complains of pain from his backside, but admits that he is not able to move well off of that area. 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 Peripheral vascular disease, unspecified Peripheral vascular occlusive disease Presbycusis of both ears Severe malnutrition Stenosis of right vertebral artery Tobacco dependence due to cigarettes Medical History unable to obtain Home Medications amlodipine 10 mg tablet 10 mg PO DAILY #30 tabs 08/19/20 [Rx Last Taken Unknown] atorvastatin 40 mg tablet 40 mg PO QHS #30 tabs 08/19/20 [Rx Last Taken Unknown] lisinopril 20 mg tablet 20 mg PO QHS 09/07/22 [History Last Taken Unknown] pantoprazole 40 mg tablet,delayed release 40 mg PO BID 09/07/22 [History Last Taken Unknown] sertraline 100 mg tablet 100 mg PO DAILY 09/07/22 [History Last Taken Unknown] tamsulosin 0.4 mg capsule 0.4 mg PO DAILY 09/07/22 [History Last Taken Unknown] albuterol sulfate 2.5 mg/3 mL (0.083 %) solution for nebulization 2.5 mg (3 mL) inhalation Q2H PRN PRN Dyspnea, wheezing #0 mL 09/10/22 [Rx Last Taken Unknown] arginine 7 gram-glutam 7 gram-CaHMB 1.5 [id number] oral pwd pkt (Alfonso (with collagen)) 1 packet PO BIDCM #0 ea 09/10/22 [Rx Last Taken Unknown] ascorbic acid (vitamin C) 500 mg tablet 500 mg PO TIDCM #0 tabs 09/10/22 [Rx Last Taken Unknown] bumetanide 0.5 mg tablet 0.5 mg PO BID #60 tabs 09/10/22 [Rx Last Taken Unknown] ferrous sulfate 300 mg (60 mg iron)/5 mL oral liquid 300 mg (5 mL) PO TIDCM #0 mL 09/10/22 [Rx Last Taken Unknown] guaifenesin 1,200 mg tablet, extended release 12 hr (Mucus Relief ER) 1,200 mg PO BID #0 tabs 09/10/22 [Rx Last Taken Unknown] ipratropium 0.5 mg-albuterol 3 mg (2.5 mg base)/3 mL nebulization soln 3 ml inhalation Q4HWA.RT #0 mL 09/10/22 [Rx Last Taken Unknown] cholecalciferol (vitamin D3) 50 mcg (2,000 unit) capsule 50 mcg PO DAILY 09/22/22 [History Last Taken Unknown] fluconazole 100 mg tablet 100 mg PO DAILY 09/22/22 [History Last Taken Unknown] multivitamin,tx-minerals 1 tab PO DAILY 09/22/22 [History Last Taken Unknown] Allergy/AdvReac Type Severity Reaction Status Date / Time No Known Allergies Allergy Verified 10/07/22 03:00 Family History Father Dementia Mother Dementia Social History household members: none Smoking Status: Current every day smoker tobacco type: cigarettes Tobacco: How many years used: 40 Electronic Cigarette Use: with nicotine second hand exposure: Yes alcohol intake: former year quit: 2020 substance use type: does not use caffeine: Yes (4 cups daily) Type: coffee seatbelt use: sometimes Physical Exam Const alert Constitutional Narrative: Patient is minimally communicative Nutritional Appearance: cachectic Back/Spine Back/Spine Narrative: Patient with unstageable sacral decubitus ulcer that exhibits a soupy necrotic base with surrounding erythema. This area is tender with palpation and there does appear to be some undermining to the wound. I find approximately 6 cm between the inferior aspect of the wound and the start of the cleft. Medical Records Data Medical Nutrition Assessment Dietitian: Malnutrition Criteria Met Start: 10/07/22 14:13 Freq: Status: Active Protocol: Document 10/09/22 09:32 GEORGE (Rec: 10/09/22 09:32 [facility] [id number]) Nutrition Malnutrition Evidence of Malnutrition Exists Yes Malnutrition (severe): Chronic Evidenced By Suboptimal Energy Intake ( Severe),Weight Loss (Severe) Intake Problem Increased Nutrient Needs (specify) Etiology protein needs related to skin status Signs/Symptoms as evidenced by PI love heels and R buttock/sacrum - followed by wound nurse; on Alfonso bid Status Active Problem Clinical Problem Acute Disease or Injury Related Malnutrition Etiology severe, acute malnutrition related to inadequate energy intake Signs/Symptoms as evidenced by unintentional wt loss of 19.4#/12% x 1 month ; estimated PO intake meeting <75% of estimated energy needs > 1 month Status Active Problem Recommendation Dietitian Recommendations/Changes recommend advance diet as tolerated to regular, - texture /consistency per FAMILY SERVICE WORKER; Ensure Plus High Protein 120mL 4x/day w/ medpass when diet advanced Alfonso BID for wound healing. Lab / Micro Data Result Diagrams: 10/15/22 05:05 10/15/22 05:05 Labs: Laboratory Results - last 24 hr 10/14/22 22:07: Vancomycin Trough 26.2 H 10/15/22 05:05: WBC 18.0 H, RBC 3.47 L, Hgb 10.1 L, Hct 31.8 L, MCV 91.6, MCH 29.1, MCHC 31.8 L, RDW Std Deviation 53.1 H, RDW Coeff of Luis 15.9 H, Plt Count 533 H, MPV 10.6, Immature Gran % (Auto) 1.300 H, Neut % (Auto) 83.1 H, Lymph % (Auto) 8.6 L, [place] % (Auto) 5.5, Eos % (Auto) 0.8, Baso % (Auto) 0.7, Absolute Neuts (auto) 15.0 H, Absolute Lymphs (auto) 1.55, Nucleated RBC % 0 10/15/22 05:05: Sodium 138, Potassium 2.9 L, Chloride 105, Carbon Dioxide 30.0, Anion Gap 3 L, BUN 24 H, Creatinine 0.78, Estim Creat Clear Calc 63.80, Est GFR (MDRD) Af Amer 125, Est GFR (MDRD) Non-Af 103, BUN/Creatinine Ratio 30.7 H, Glucose 106, Calcium 8.3 L 10/15/22 05:05: Magnesium 1.3 L 10/15/22 18:00: Random Vancomycin 15.6 H Micro: Microbiology 10/10/22 12:55 Blood Culture (Wb) - Left Wrist Blood Culture - Final No growth in 5 days. 10/10/22 12:45 Blood Culture (Wb) - Left Hand Blood Culture - Final No growth in 5 days. Charges/Coding Visit Charges Inpatient E&M: 93703 Init Hosp L2
[2022-10-15] MEDS: Vancomycin IV 1,000 MG/200 ML BAG 200 MG IV (20:59)
[2022-10-15] MEDS: Atorvastatin Calcium 40 MG Tablet PO (21:29)
[2022-10-16] VITALS (11 sets, daily range): BP systolic 115–130; BP diastolic 59–67; PULSE 82–96; RESP 12–22; TEMP 36.5–36.7; O2SAT 87–97; BMI 21.4
--- NOTE | 2022-10-16 01:55 | PCM.HOSP.N ---
Hospitalist Note Loose stools, currently on abx therapy. Foul smelling, to be cautious c-diff requested.
[2022-10-16 05:21] LABS: Absolute Lymphocyte Count 1.11 X10^3/uL (0.83-4.51); Absolute Neutrophil Count 16.9 X10^3/uL (2.0-7.7); Basophil# 0.08 X10^3/uL; Basophil% 0.4 % (0-1); Eosinophil# 0.12 X10^3/uL; Eosinophils% 0.6 % (0-5); Hematocrit 29.6 % (40-54); Hemoglobin 9.4 g/dL (13.0-16.5); Lymphocyte # 1.11 X10^3/ul (0.83-4.51); Lymphocyte % 5.7 % (19-41); Mean Corp Hgb Conc 31.8 g/dL (32-36); Mean Corpuscular Hgb 28.7 pg (27.0-32.0); Mean Corpuscular Volume 90.5 fL (80-94); Monocyte% 5.2 % (0-10); NRBC Flagged by Analyzer 0 % (0-5); Neutrophil # 16.91 X10^3/uL (2.7-7.7); Neutrophil % 87.3 % (47-70); Platelet Count 454 K/mm3 (150-450); RBC Distribution Width CV 15.9 % (11.6-14.6); RBC Distribution Width SD 52.2 fl (35.1-43.9); Red Blood Count 3.27 M/mm3 (4.6-6.2); White Blood Count 19.4 K/mm3 (4.4-11.0)
[2022-10-16 05:57] LABS: Anion Gap 6 (5-15); BUN 15 mg/dL (7-18); BUN/Creat Ratio 22.5 RATIO (10-20); Calcium,Total 7.7 mg/dL (8.5-10.1); Chloride 105 mmol/L (98-107); Creatinine, Serum 0.67 mg/dL (0.70-1.30); EST Glomerular Filtration Rate 124 mL/min (>60); Est Glom Filt Rate - Afr Amer 150 mL/min (>60); Estimated Creatinine Clearance 63.71 ml/min; Glucose 92 mg/dL (74-106); Potassium 2.7 mmol/L (3.5-5.1); Sodium Level 136 mmol/L (136-145)
[2022-10-16] MEDS: Ipratropium/Albuterol Sulfate 3 ML AMPUL.NEB INHALATION ×3 (06:54→18:55)
[2022-10-16 08:32] LABS: Magnesium 2.2 mg/dL (1.6-2.6)
[2022-10-16] MEDS: Lisinopril 20 MG Tablet PO (09:22)
[2022-10-16] MEDS: Juven (unflavored) Packet 1 PACKET PO ×2 (09:22→15:52)
[2022-10-16] MEDS: Pantoprazole Sodium 40 MG Tablet PO ×2 (09:22→19:56)
[2022-10-16] MEDS: amLODIPine 10 MG Tablet PO (09:22)
[2022-10-16] MEDS: Furosemide 40 MG Tablet PO (09:22)
[2022-10-16] MEDS: Sertraline 100 MG Tablet PO (09:22)
[2022-10-16] MEDS: Potassium Chloride 10mEq/100mL 10 MEQ/100 ML IV.SOLN. 100 MEQ IV BOLUS ×4 (09:23→13:24)
[2022-10-16] MEDS: Ensure Plus High Protein 120 ML LIQUID PO ×2 (11:08→19:57)
--- NOTE | 2022-10-16 12:12 | PCM.PROGNOTE ---
Subjective Subjective Patient seen and examined. HE was lying comfortably in bed and had no active complaints. He is s/p excision of the infected necrotic left sacral pressure sore with partial ostectomy for osteomyelitis. He has remained stable. Potassium remains low at 2.7. Review of systems is otherwise negative. Objective Data Objective Data Vital Signs: Vital Signs Temp Pulse Resp BP Pulse Ox O2 Del Method O2 Flow Rate 97.8 F 96 16 119/67 96 Nasal Cannula 3 10/16/22 09:14 10/16/22 09:14 10/16/22 09:14 10/16/22 09:14 10/16/22 09:14 10/16/22 09:27 10/16/22 09:27 FiO2 40 10/09/22 00:00 Oxygen Flow Rate (L/min) 3 Oxygen Delivery Method Nasal Cannula Weight: 153 lb 3.54 oz Body Mass Index (BMI) 21.4 Intake & Output: Intake and Output for Last 24 Hours 10/14/22 10/15/22 10/16/22 23:59 23:59 23:59 Intake Total 2066 / 2066 1111.00 / 1111.00 212 / 212 Output Total 2450 / 2450 4025 / 4025 700 / 700 Balance -384 / -384 -2914.00 / -2914.00 -488 / -488 Medical Nutrition Assessment Dietitian: Malnutrition Criteria Met Start: 10/07/22 14:13 Freq: Status: Active Protocol: Document 10/09/22 09:32 GEORGE (Rec: 10/09/22 09:32 [facility] [id number]) Nutrition Malnutrition Evidence of Malnutrition Exists Yes Malnutrition (severe): Chronic Evidenced By Suboptimal Energy Intake ( Severe),Weight Loss (Severe) Intake Problem Increased Nutrient Needs (specify) Etiology protein needs related to skin status Signs/Symptoms as evidenced by PI love heels and R buttock/sacrum - followed by wound nurse; on Alfonso bid Status Active Problem Clinical Problem Acute Disease or Injury Related Malnutrition Etiology severe, acute malnutrition related to inadequate energy intake Signs/Symptoms as evidenced by unintentional wt loss of 19.4#/12% x 1 month ; estimated PO intake meeting <75% of estimated energy needs > 1 month Status Active Problem Recommendation Dietitian Recommendations/Changes recommend advance diet as tolerated to regular, - texture /consistency per PRODUCTION TESTER; Ensure Plus High Protein 120mL 4x/day w/ medpass when diet advanced Alfonso BID for wound healing. Lab / Micro Data Result Diagrams: 10/16/22 04:55 10/16/22 04:55 Labs: Laboratory Results - last 24 hr 10/15/22 18:00: Random Vancomycin 15.6 H 10/16/22 04:55: WBC 19.4 H, RBC 3.27 L, Hgb 9.4 L, Hct 29.6 L, MCV 90.5, MCH 28.7, MCHC 31.8 L, RDW Std Deviation 52.2 H, RDW Coeff of Luis 15.9 H, Plt Count 454 H, MPV 10.0, Immature Gran % (Auto) 0.800, Neut % (Auto) 87.3 H, Lymph % (Auto) 5.7 L, [place] % (Auto) 5.2, Eos % (Auto) 0.6, Baso % (Auto) 0.4, Absolute Neuts (auto) 16.9 H, Absolute Lymphs (auto) 1.11, Nucleated RBC % 0 10/16/22 04:55: Sodium 136, Potassium 2.7 L*, Chloride 105, Carbon Dioxide 25.0, Anion Gap 6, BUN 15, Creatinine 0.67 L, Estim Creat Clear Calc 63.71, Est GFR (MDRD) Af Amer 150, Est GFR (MDRD) Non-Af 124, BUN/Creatinine Ratio 22.5 H, Glucose 92, Calcium 7.7 L 10/16/22 04:55: Magnesium 2.2 Micro: Microbiology 10/15/22 Unknown Bone - Sacral Bone Wound Culture - Preliminary No growth-Final to follow 10/15/22 Unknown Tissue - Sacral Wound Culture - Preliminary Mixed Gram Positive Organisms 10/16/22 02:07 Stool C. difficile GDH Antigen & Toxins - Final 10/16/22 02:07 Stool C. difficile DNA Amplification - Final 10/10/22 12:55 Blood Culture (Wb) - Left Wrist Blood Culture - Final No growth in 5 days. 10/10/22 12:45 Blood Culture (Wb) - Left Hand Blood Culture - Final No growth in 5 days. 10/07/22 03:45 Blood Culture (Wb) - Left Wrist Blood Culture - Final Staphylococcus species 10/07/22 03:23 Blood Culture (Wb) - Left Wrist Bacteria Detection (PCR) - Final Coag Negative Staph 10/07/22 03:23 Blood Culture (Wb) - Left Wrist Blood Culture - Final Staphylococcus hominis hominis 10/07/22 09:00 Wound - Buttock Gram Stain - Final 10/07/22 09:00 Wound - Buttock Wound Culture - Final Streptococcus pyogenes Meth. resistant Staph. aureus 10/07/22 03:50 Urine, Catheterized Urine Culture - Final Presumptive C albicans Meth. resistant Staph. aureus 10/07/22 08:50 Stool Enteric Bacteriology - Final 10/07/22 08:50 Stool C. difficile GDH Antigen & Toxins - Final 10/07/22 08:50 Stool C. difficile DNA Amplification - Final 10/07/22 08:55 Nasal Secretion SARS-CoV-2 & FLU Antigen (Rapid) - Final 10/07/22 03:15 Stool Stool Occult Blood (VIMAL) - Final Occult Blood Positive Physical Exam Const alert, oriented x3 and no apparent distress Constitutional Narrative: frail General Appearance: cooperative HEENT normocephalic and head/scalp atraumatic Eyes PERRL and EOMs intact bilaterally Neck no lymphadenopathy and supple Lymph Lymphatic: no lymphadenopathy noted and no lymphedema noted Resp Resp Narrative: Mildly diminished breath sounds bibasally. No wheezes or crackles. On room air today. Cardio regular rate, regular rhythm, S1 normal heart sound, S2 normal heart sound and no murmurs GI normal to inspection, nondistended, normoactive bowel sounds, soft to palpation, non-tender and non-distended Extremity normal capillary refill, no clubbing, cyanosis or edema and no calf tenderness Skin Skin Narrative: intact pressure dressing over surgical site Neuro CN's II-XII intact bilaterally, no focal motor deficits, no sensory deficits noted and deep tendon reflexes 2+ bilaterally Motor Exam: strength 5/5 throughout Psych thought process normal and cooperative Appearance: appropriate Assessment & Plan Assessment/Plan (1) Sepsis: (2) GI bleed: PLAN: Plan #UTI was admitted due to sepsis due to UTI and decubitus ulcers. He was noted to have numerous foot wounds and buttock ulcer and foot x-ray showed osteopenia of the heads of the fifth metatarsals. Wound cultures grew strep pyogenes and MRSA. Urine culture grew MRSA and Ursula Blood cultures 1 out of 2 grew coagulase-negative staph. On IV vancomycin and unasyn ID on board; Critical care also on board. #Hypoxia Concerning for aspiration. Speech therapy on board. weaned off oxygen, and on room air. Breathing treatments of bronchodilators. Titrate oxygen to maintain saturation above 90%. #Stage IV Sacral decubitus ulcer Present on admission s/p excision of the infected left sacral pressure sore which was stage IV with partial cystectomy for osteomyelitis. wbc elevated at ~ 19 today. on IV vancomycin and unasyn ID and plastic surgery on board #GI bleed due to bleeding peptic ulcer He was noted to have positive stool for occult blood during this admission. He had had a history of GI bleed and being seen at [facility] a month prior to this admission for hemorrhagic shock due to bleeding duodenal ulcer. He had several clips placed there during EGD and required 5 units of packed red blood cells during his admission at [facility]. He is s/p EGD on 10/08/2022 whilst here which showed severe erosive esophagitis and benign-appearing esophageal stenosis which was dilated as well as an oozing duodenal ulcer with pigmented material which was injected and treated with heater probe. Now off octreotide drip. On IV PPI every 12 hourly. Hemoglobin has remained stable. GI on board. #Hypokalemia:potassium is 2.7 today. WIll replace and trend. #Hypomagnesemia: resolved #Non-STEMI Had elevated troponins. This was thought to be due to demand ischemia due to his hypoxia. EKG showed no acute ST changes. has remained stable 2D echo showed EF of 40% and moderate global left Systolic dysfunction with moderate right ventricular systolic dysfunction and lipomatous hypertrophy of the atrial septum #Atherosclerosis of extremities with peripheral vascular disease Has had a CTA during previous admission which showed severe diffuse atherosclerotic stenosis notably of bilateral iliac and femoral arteries. He is not a good candidate for intervention now. On high intensity statin. Follow-up with vascular surgery on outpatient basis Wound care on board #History of CVA: On high intensity statin and aspirin #Hypertension: resolved. Will resume BP meds #Severe protein calorie malnutrition as evidenced by unintentional wt loss of 19.4% x 1 month with estimated p.o. intake meeting less than 75% of estimated energy needs for more than 1 month. Dietitian on board. on dietary supplements DVT prophylaxis: SCDs Charges/Coding Visit Charges Inpatient E&M: 02614 Subs Hosp L2
--- NOTE | 2022-10-16 12:59 | WOUNDNOTE ---
wound photo: left sacrum
--- NOTE | 2022-10-16 13:37 | PCM.PN.ID ---
Physical Exam Narrative Feeling ok s/p OR yesterday. No fever. Const alert and no apparent distress Resp clear to auscultation bilaterally Cardio regular rate and regular rhythm GI soft to palpation, non-tender and non-distended Skin no rashes or lesions noted ID ID: Route of nutrition/ use of supplements: [] Nutritional Intake: [] IV Site: [] Soto Catheter: [] Assessment & Plan Assessment/Plan (1) Sepsis: PLAN: MR-S. hominis bacteremia. Sacral wound with redness/tunneling, wound cx so far with strep and MRSA. Ucx with yeast and MRSA. Sacral wound with ongoing gross purulence and frequent stool contamination. Consulted plastic surgery. Cont vanc/unasyn. Taken to OR 10/15 for I&D of osteo by Dr. Winkler. Consulted surgery, but he is not interested in diverting ostomy. Cdiff (+) but toxin neg. Having melena with recent duodenal ulcer. Low suspicion for active cdiff at this time, but will monitor while on abx here. Will follow
--- NOTE | 2022-10-16 13:45 | CHAPLAIN ---
Type of Pastoral Visit ___ Initial Visit ___ Follow-up Visit ___ On-call Visit ___ General Patient Visit ___ Spiritual Assessment ___ Family Conference ___ Bereavement ___ Rapid Response ___ Code Blue ___ Other (describe below) Pastoral Care Referral From ___ Patient ___ Family ___ Nurse ___ Physician ___ Wafer Batter Mixer ___ Accounts Supervisor ___ Other (describe below) Sacrament/Intervention ___ Active listening ___ Anointing ___ Religion ___ Bereavement ___ Communion ___ Sharona exploration ___ ___ Life review ___ Prayer ___ Reconciliation ___ Sacrament of Sick ___ Supportive presence ___ Wedding ___ Other (describe below) Pastoral Comments patient is sleeping and does not awaken
[2022-10-16] MEDS: Potassium Chloride Oral Tablet 20 MEQ PO (15:52)
--- NOTE | 2022-10-16 16:28 | PN.SURG_ITS ---
Subjective Subjective Postop #1 Patient is resting in bed. Objective Data Objective Data Vital Signs: Vital Signs Temp Pulse Resp BP Pulse Ox O2 Del Method O2 Flow Rate 98.1 F 82 16 130/59 H 97 Nasal Cannula 3 10/16/22 13:29 10/16/22 13:29 10/16/22 13:29 10/16/22 13:29 10/16/22 13:29 10/16/22 13:59 10/16/22 13:59 FiO2 40 10/09/22 00:00 Oxygen Flow Rate (L/min) 3 Oxygen Delivery Method Nasal Cannula Weight: 153 lb 3.54 oz Body Mass Index (BMI) 21.4 Intake & Output: Intake and Output for Last 24 Hours 10/14/22 10/15/22 10/16/22 23:59 23:59 23:59 Intake Total 2066 / 2066 1111.00 / 1111.00 1074 / 1074 Output Total 2450 / 2450 4025 / 4025 1025 / 1025 Balance -384 / -384 -2914.00 / -2914.00 49 / 49 Medical Nutrition Assessment Dietitian: Malnutrition Criteria Met Start: 10/07/22 14:13 Freq: Status: Active Protocol: Document 10/09/22 09:32 GEORGE (Rec: 10/09/22 09:32 [facility] [id number]) Nutrition Malnutrition Evidence of Malnutrition Exists Yes Malnutrition (severe): Chronic Evidenced By Suboptimal Energy Intake ( Severe),Weight Loss (Severe) Intake Problem Increased Nutrient Needs (specify) Etiology protein needs related to skin status Signs/Symptoms as evidenced by PI love heels and R buttock/sacrum - followed by wound nurse; on Alfonso bid Status Active Problem Clinical Problem Acute Disease or Injury Related Malnutrition Etiology severe, acute malnutrition related to inadequate energy intake Signs/Symptoms as evidenced by unintentional wt loss of 19.4#/12% x 1 month ; estimated PO intake meeting <75% of estimated energy needs > 1 month Status Active Problem Recommendation Dietitian Recommendations/Changes recommend advance diet as tolerated to regular, - texture /consistency per AUTO MECHANICS INSTRUCTOR; Ensure Plus High Protein 120mL 4x/day w/ medpass when diet advanced Alfonso BID for wound healing. Lab / Micro Data Result Diagrams: 10/16/22 04:55 10/16/22 04:55 Labs: Laboratory Results - last 24 hr 10/15/22 18:00: Random Vancomycin 15.6 H 10/16/22 04:55: WBC 19.4 H, RBC 3.27 L, Hgb 9.4 L, Hct 29.6 L, MCV 90.5, MCH 28.7, MCHC 31.8 L, RDW Std Deviation 52.2 H, RDW Coeff of Luis 15.9 H, Plt Count 454 H, MPV 10.0, Immature Gran % (Auto) 0.800, Neut % (Auto) 87.3 H, Lymph % (Auto) 5.7 L, [place] % (Auto) 5.2, Eos % (Auto) 0.6, Baso % (Auto) 0.4, Absolute Neuts (auto) 16.9 H, Absolute Lymphs (auto) 1.11, Nucleated RBC % 0 10/16/22 04:55: Sodium 136, Potassium 2.7 L*, Chloride 105, Carbon Dioxide 25.0, Anion Gap 6, BUN 15, Creatinine 0.67 L, Estim Creat Clear Calc 63.71, Est GFR (MDRD) Af Amer 150, Est GFR (MDRD) Non-Af 124, BUN/Creatinine Ratio 22.5 H, Glucose 92, Calcium 7.7 L 10/16/22 04:55: Magnesium 2.2 Micro: Microbiology 10/15/22 Unknown Bone - Sacral Bone Gram Stain - Final 10/15/22 Unknown Bone - Sacral Bone Wound Culture - Preliminary No growth-Final to follow 10/15/22 Unknown Tissue - Sacral Gram Stain - Final 10/15/22 Unknown Tissue - Sacral Wound Culture - Preliminary Mixed Gram Positive Organisms 10/16/22 02:07 Stool C. difficile GDH Antigen & Toxins - Final 10/16/22 02:07 Stool C. difficile DNA Amplification - Final 10/10/22 12:55 Blood Culture (Wb) - Left Wrist Blood Culture - Final No growth in 5 days. 10/10/22 12:45 Blood Culture (Wb) - Left Hand Blood Culture - Final No growth in 5 days. 10/07/22 03:45 Blood Culture (Wb) - Left Wrist Blood Culture - Final Staphylococcus species 10/07/22 03:23 Blood Culture (Wb) - Left Wrist Bacteria Detection (PCR) - Final Coag Negative Staph 10/07/22 03:23 Blood Culture (Wb) - Left Wrist Blood Culture - Final Staphylococcus hominis hominis 10/07/22 09:00 Wound - Buttock Gram Stain - Final 10/07/22 09:00 Wound - Buttock Wound Culture - Final Streptococcus pyogenes Meth. resistant Staph. aureus 10/07/22 03:50 Urine, Catheterized Urine Culture - Final Presumptive C albicans Meth. resistant Staph. aureus 10/07/22 08:50 Stool Enteric Bacteriology - Final 10/07/22 08:50 Stool C. difficile GDH Antigen & Toxins - Final 10/07/22 08:50 Stool C. difficile DNA Amplification - Final 10/07/22 08:55 Nasal Secretion SARS-CoV-2 & FLU Antigen (Rapid) - Final 10/07/22 03:15 Stool Stool Occult Blood (VIMAL) - Final Occult Blood Positive Physical Exam Const alert and no apparent distress General Appearance: cooperative HEENT normocephalic Resp normal respiratory effort Effort and Inspection: able to speak in complete sentences Skin Wound Narrative: Sacral ulcer with no active bleeding. Wound vac placed today. Assessment & Plan Assessment/Plan (1) Decubitus ulcer of sacral region, unstageable: (2) Sepsis: (3) Peripheral vascular occlusive disease: (4) Essential (primary) hypertension: (5) Tobacco dependence due to cigarettes: PLAN: Plan Pain is controlled. Operative dressing removed. No active bleeding. Wound VAC applied at 150 mmHg. He has issues with stool getting into the wound, hopefully the wound VAC will assist to prevent this. He currently is declining a colostomy. Culture from 10/07/22 positive for Streptococcus pyogenes and MRSA. Preliminary operative tissue culture positive for Mixed Gram Positive organisms. Operative bone culture pending. ID involved. Currently on Vancomycin and Unasyn. Prealbumin from 09/11/22 12.6. Will recheck level. Encourage increase protein intake/supplementation. He is prescribed Alfonso. Upon discharge he will follow up at the wound center.
[2022-10-16] MEDS: Vancomycin IV 1,000 MG/200 ML BAG 200 MG IV (19:57)
[2022-10-16] MEDS: Atorvastatin Calcium 40 MG Tablet PO (19:57)
[2022-10-16] MEDS: 0.9% Saline Lock 10 ML Syringe IV (20:01)
[2022-10-17] VITALS (9 sets, daily range): BP systolic 98–145; BP diastolic 63–78; PULSE 82–99; RESP 14–23; TEMP 36.3–36.7; O2SAT 94–100; BMI 20.5
[2022-10-17] MEDS: Ipratropium/Albuterol Sulfate 3 ML AMPUL.NEB INHALATION ×2 (06:58→18:59)
[2022-10-17 07:02] LABS: Absolute Lymphocyte Count 0.91 X10^3/uL (0.83-4.51); Absolute Neutrophil Count 16.2 X10^3/uL (2.0-7.7); Basophil# 0.07 X10^3/uL; Basophil% 0.4 % (0-1); Eosinophil# 0.08 X10^3/uL; Eosinophils% 0.4 % (0-5); Hematocrit 29.4 % (40-54); Hemoglobin 9.1 g/dL (13.0-16.5); Lymphocyte # 0.91 X10^3/ul (0.83-4.51); Lymphocyte % 4.9 % (19-41); Mean Corpuscular Volume 90.5 fL (80-94); Mean Platelet Vol. 10.4 fl (6.2-12.0); Monocyte# 1.08 X10^3/uL; Monocyte% 5.8 % (0-10); NRBC Flagged by Analyzer 0 % (0-5); Neutrophil # 16.21 X10^3/uL (2.7-7.7); Neutrophil % 87.7 % (47-70); Platelet Count 467 K/mm3 (150-450); RBC Distribution Width SD 52.4 fl (35.1-43.9); Red Blood Count 3.25 M/mm3 (4.6-6.2); White Blood Count 18.5 K/mm3 (4.4-11.0)
[2022-10-17 07:36] LABS: Anion Gap 2 (5-15); BUN 18 mg/dL (7-18); BUN/Creat Ratio 30.1 RATIO (10-20); Calcium,Total 8.1 mg/dL (8.5-10.1); Chloride 106 mmol/L (98-107); EST Glomerular Filtration Rate 140 mL/min (>60); Est Glom Filt Rate - Afr Amer 170 mL/min (>60); Estimated Creatinine Clearance 60.96 ml/min; Glucose 115 mg/dL (74-106); Potassium 2.9 mmol/L (3.5-5.1); Prealbumin 8.1 mg/dL (20.0-40.0); Sodium Level 137 mmol/L (136-145)
[2022-10-17] MEDS: Potassium Chloride Oral Tablet 20 MEQ PO ×2 (09:04→16:22)
[2022-10-17] MEDS: Potassium Chloride 10mEq/100mL 10 MEQ/100 ML IV.SOLN. 100 MEQ IV BOLUS ×4 (09:05→14:14)
[2022-10-17] MEDS: Juven (unflavored) Packet 1 PACKET PO ×2 (09:05→16:22)
[2022-10-17] MEDS: Ensure Plus High Protein 120 ML LIQUID PO ×2 (09:05→22:20)
[2022-10-17] MEDS: Sertraline 100 MG Tablet PO (09:06)
[2022-10-17] MEDS: Pantoprazole Sodium 40 MG Tablet PO ×2 (09:06→22:08)
[2022-10-17] MEDS: amLODIPine 10 MG Tablet PO (11:11)
[2022-10-17] MEDS: Furosemide 40 MG Tablet PO (11:11)
[2022-10-17] MEDS: Lisinopril 20 MG Tablet PO (11:11)
--- NOTE | 2022-10-17 12:42 | PN_ITS ---
Subjective Subjective Patient seen and examined. He had no active complaints today. Review of systems is otherwise negative. WBC still elevated. He has remained hemodynamically stable. Objective Data Objective Data Vital Signs: Vital Signs Temp Pulse Resp BP Pulse Ox O2 Del Method O2 Flow Rate 97.5 F L 82 14 121/63 H 100 Nasal Cannula 3 10/17/22 11:09 10/17/22 11:09 10/17/22 11:09 10/17/22 11:09 10/17/22 11:09 10/17/22 11:09 10/17/22 11:09 FiO2 40 10/09/22 00:00 Oxygen Flow Rate (L/min) 3 Oxygen Delivery Method Nasal Cannula Weight: 146 lb 9.718 oz Body Mass Index (BMI) 20.5 Intake & Output: Intake and Output for Last 24 Hours 10/15/22 10/16/22 10/17/22 23:59 23:59 23:59 Intake Total 1111.00 / 1111.00 1694 / 1694 924 / 924 Output Total 4025 / 4025 2375 / 2375 1645 / 1645 Balance -2914.00 / -2914.00 -681 / -681 -721 / -721 Medical Nutrition Assessment Dietitian: Malnutrition Criteria Met Start: 10/07/22 14:13 Freq: Status: Active Protocol: Document 10/09/22 09:32 GEORGE (Rec: 10/09/22 09:32 GEORGE [id number]) Nutrition Malnutrition Evidence of Malnutrition Exists Yes Malnutrition (severe): Chronic Evidenced By Suboptimal Energy Intake ( Severe),Weight Loss (Severe) Intake Problem Increased Nutrient Needs (specify) Etiology protein needs related to skin status Signs/Symptoms as evidenced by PI love heels and R buttock/sacrum - followed by wound nurse; on Alfonso bid Status Active Problem Clinical Problem Acute Disease or Injury Related Malnutrition Etiology severe, acute malnutrition related to inadequate energy intake Signs/Symptoms as evidenced by unintentional wt loss of 19.4#/12% x 1 month ; estimated PO intake meeting <75% of estimated energy needs > 1 month Status Active Problem Recommendation Dietitian Recommendations/Changes recommend advance diet as tolerated to regular, - texture /consistency per [employer]; Ensure Plus High Protein 120mL 4x/day w/ medpass when diet advanced Alfonso BID for wound healing. Lab / Micro Data Result Diagrams: 10/17/22 06:25 10/17/22 06:25 Labs: Laboratory Results - last 24 hr 10/17/22 06:25: WBC 18.5 H, RBC 3.25 L, Hgb 9.1 L, Hct 29.4 L, MCV 90.5, MCH 28.0, MCHC 31.0 L, RDW Std Deviation 52.4 H, RDW Coeff of Luis 16.0 H, Plt Count 467 H, MPV 10.4, Immature Gran % (Auto) 0.800, Neut % (Auto) 87.7 H, Lymph % (Auto) 4.9 L, [place] % (Auto) 5.8, Eos % (Auto) 0.4, Baso % (Auto) 0.4, Absolute Neuts (auto) 16.2 H, Absolute Lymphs (auto) 0.91, Nucleated RBC % 0 10/17/22 06:25: Sodium 137, Potassium 2.9 L, Chloride 106, Carbon Dioxide 29.0, Anion Gap 2 L, BUN 18, Creatinine 0.60 L, Estim Creat Clear Calc 60.96, Est GFR (MDRD) Af Amer 170, Est GFR (MDRD) Non-Af 140, BUN/Creatinine Ratio 30.1 H, Glucose 115 H, Calcium 8.1 L, Prealbumin 8.1 L Micro: Microbiology 10/15/22 Unknown Tissue - Sacral Gram Stain - Final 10/15/22 Unknown Tissue - Sacral Wound Culture - Preliminary GPC Poss Enterococcus sp Staphylococcus aureus 10/15/22 Unknown Bone - Sacral Bone Gram Stain - Final 10/15/22 Unknown Bone - Sacral Bone Wound Culture - Preliminary No growth-Final to follow 10/16/22 02:07 Stool C. difficile GDH Antigen & Toxins - Final 10/16/22 02:07 Stool C. difficile DNA Amplification - Final 10/10/22 12:55 Blood Culture (Wb) - Left Wrist Blood Culture - Final No growth in 5 days. 10/10/22 12:45 Blood Culture (Wb) - Left Hand Blood Culture - Final No growth in 5 days. 10/07/22 03:45 Blood Culture (Wb) - Left Wrist Blood Culture - Final Staphylococcus species 10/07/22 03:23 Blood Culture (Wb) - Left Wrist Bacteria Detection (PCR) - Final Coag Negative Staph 10/07/22 03:23 Blood Culture (Wb) - Left Wrist Blood Culture - Final Staphylococcus hominis hominis 10/07/22 09:00 Wound - Buttock Gram Stain - Final 10/07/22 09:00 Wound - Buttock Wound Culture - Final Streptococcus pyogenes Meth. resistant Staph. aureus 10/07/22 03:50 Urine, Catheterized Urine Culture - Final Presumptive C albicans Meth. resistant Staph. aureus 10/07/22 08:50 Stool Enteric Bacteriology - Final 10/07/22 08:50 Stool C. difficile GDH Antigen & Toxins - Final 10/07/22 08:50 Stool C. difficile DNA Amplification - Final 10/07/22 08:55 Nasal Secretion SARS-CoV-2 & FLU Antigen (Rapid) - Final 10/07/22 03:15 Stool Stool Occult Blood (VIMAL) - Final Occult Blood Positive Physical Exam Const alert, oriented x3 and no apparent distress Constitutional Narrative: frail General Appearance: cooperative HEENT normocephalic and head/scalp atraumatic Eyes PERRL and EOMs intact bilaterally Neck no lymphadenopathy and supple Lymph Lymphatic: no lymphadenopathy noted and no lymphedema noted Resp Resp Narrative: Mildly diminished breath sounds bibasally. No wheezes or crackles. On 3L of oxygen Cardio regular rate, regular rhythm, S1 normal heart sound, S2 normal heart sound and no murmurs GI normal to inspection, nondistended, normoactive bowel sounds, soft to palpation, non-tender and non-distended Extremity normal capillary refill, no clubbing, cyanosis or edema and no calf tenderness Skin Skin Narrative: intact pressure dressing over surgical site General Skin Exam: no breakdown Neuro CN's II-XII intact bilaterally, no focal motor deficits, no sensory deficits noted and deep tendon reflexes 2+ bilaterally Motor Exam: strength 5/5 throughout Psych thought process normal and cooperative Appearance: appropriate Assessment & Plan Assessment/Plan (1) Sepsis: (2) GI bleed: PLAN: Plan #UTI * was admitted due to sepsis due to UTI and decubitus ulcers. * He was noted to have numerous foot wounds and buttock ulcer and foot x-ray showed osteopenia of the heads of the fifth metatarsals. Wound cultures grew strep pyogenes and MRSA. Urine culture grew MRSA and Ursula * Blood cultures 1 out of 2 grew coagulase-negative staph. * On IV vancomycin and unasyn * ID on board; * Critical care also on board. * * #Hypoxia * Concerning for aspiration. Speech therapy on board. * on 3L of oxygen. * Breathing treatments of bronchodilators. Titrate oxygen to maintain saturation above 90%. #Stage IV Sacral decubitus ulcer * Present on admission * s/p excision of the infected left sacral pressure sore which was stage IV with partial cystectomy for osteomyelitis. * wbc elevated at ~ 18.5 today. * on IV vancomycin and unasyn * ID and plastic surgery on board * wound cultures growing Gram positive cocci, possibly Enterococcus sp, as well as Staph aureus * #GI bleed due to bleeding peptic ulcer * He was noted to have positive stool for occult blood during this admission. He had had a history of GI bleed and being seen at [facility] a month prior to this admission for hemorrhagic shock due to bleeding duodenal ulcer. He had several clips placed there during EGD and required 5 units of packed red blood cells during his admission at [facility]. * He is s/p EGD on 10/08/2022 whilst here which showed severe erosive esophagitis and benign-appearing esophageal stenosis which was dilated as well as an oozing duodenal ulcer with pigmented material which was injected and treated with heater probe. * On IV PPI every 12 hourly. Hemoglobin has remained stable. * GI on board. * #Hypokalemia:potassium is 2.9 today. WIll replace and trend. #Hypomagnesemia: resolved #Non-STEMI * Had elevated troponins. This was thought to be due to demand ischemia due to his hypoxia. EKG showed no acute ST changes. * has remained stable * 2D echo showed EF of 40% and moderate global left Systolic dysfunction with moderate right ventricular systolic dysfunction and lipomatous hypertrophy of the atrial septum #Atherosclerosis of extremities with peripheral vascular disease * Has had a CTA during previous admission which showed severe diffuse atherosclerotic stenosis notably of bilateral iliac and femoral arteries. He is not a good candidate for intervention now. * On high intensity statin. Follow-up with vascular surgery on outpatient basis * Wound care on board * #History of CVA: On high intensity statin and aspirin #Hypertension: resolved. Will resume BP meds #Severe protein calorie malnutrition * as evidenced by unintentional wt loss of 19.4% x 1 month with estimated p.o. intake meeting less than 75% of estimated energy needs for more than 1 month. * Dietitian on board. * on dietary supplements DVT prophylaxis: SCDs Charges/Coding Visit Charges Inpatient E&M: 53985 Subs Hosp L2
[2022-10-17 20:10] LABS: Vancomycin, Trough Level 14.6 ug/mL (5.0-15.0)
[2022-10-17] MEDS: Vancomycin IV 1,000 MG/200 ML BAG 200 MG IV (20:31)
--- NOTE | 2022-10-17 20:47 | PCM.RX.CS ---
Consult Pharmacy has been consulted to manage selected antiobiotic: Vancomycin Type of Consult: Follow-up Labs: Sodium 137 mmol/L (136-145) 10/17/22 06:25 Potassium 2.9 mmol/L (3.5-5.1) L 10/17/22 06:25 Chloride 106 mmol/L (98-107) 10/17/22 06:25 Carbon Dioxide 29.0 mmol/L (21.0-32.0) 10/17/22 06:25 Anion Gap 2 (5-15) L 10/17/22 06:25 BUN 18 mg/dL (7-18) 10/17/22 06:25 Creatinine 0.60 mg/dL (0.70-1.30) L 10/17/22 06:25 Est GFR (MDRD) Af Amer 170 mL/min (>60) 10/17/22 06:25 Est GFR (MDRD) Non-Af 140 mL/min (>60) 10/17/22 06:25 BUN/Creatinine Ratio 30.1 RATIO (10-20) H 10/17/22 06:25 Glucose 115 mg/dL (74-106) H 10/17/22 06:25 Vancomycin Trough 14.6 ug/mL (5.0-15.0) 10/17/22 19:30 Random Vancomycin 15.6 ug/mL (0.0-15.0) H 10/15/22 18:00 Microbiology: Microbiology 10/15/22 Unknown Tissue - Sacral Gram Stain - Final 10/15/22 Unknown Tissue - Sacral Wound Culture - Preliminary GPC Poss Enterococcus sp Staphylococcus aureus 10/15/22 Unknown Bone - Sacral Bone Gram Stain - Final 10/15/22 Unknown Bone - Sacral Bone Wound Culture - Preliminary No growth-Final to follow 10/16/22 02:07 Stool C. difficile GDH Antigen & Toxins - Final 10/16/22 02:07 Stool C. difficile DNA Amplification - Final 10/10/22 12:55 Blood Culture (Wb) - Left Wrist Blood Culture - Final No growth in 5 days. 10/10/22 12:45 Blood Culture (Wb) - Left Hand Blood Culture - Final No growth in 5 days. 10/07/22 03:45 Blood Culture (Wb) - Left Wrist Blood Culture - Final Staphylococcus species 10/07/22 03:23 Blood Culture (Wb) - Left Wrist Bacteria Detection (PCR) - Final Coag Negative Staph 10/07/22 03:23 Blood Culture (Wb) - Left Wrist Blood Culture - Final Staphylococcus hominis hominis 10/07/22 09:00 Wound - Buttock Gram Stain - Final 10/07/22 09:00 Wound - Buttock Wound Culture - Final Streptococcus pyogenes Meth. resistant Staph. aureus 10/07/22 03:50 Urine, Catheterized Urine Culture - Final Presumptive C albicans Meth. resistant Staph. aureus 10/07/22 08:50 Stool Enteric Bacteriology - Final 10/07/22 08:50 Stool C. difficile GDH Antigen & Toxins - Final 10/07/22 08:50 Stool C. difficile DNA Amplification - Final 10/07/22 08:55 Nasal Secretion SARS-CoV-2 & FLU Antigen (Rapid) - Final 10/07/22 03:15 Stool Stool Occult Blood (VIMAL) - Final Occult Blood Positive Goal Trough: 15-20 mcg/mL Pharmacy Plan for Drug Dosing: Pharmacy Service will continue to monitor and adjust dosing as required. TROUGH 14.6 @ 23 HRS. NO CHANGES, FOLLOW UP TROUGH IN 2 DAYS Follow-Up Labs: Trough Vancomycin Labs to be done on [date and time ordered]: 10/19 @ 1930
[2022-10-17] MEDS: Atorvastatin Calcium 40 MG Tablet PO (22:08)
[2022-10-18] VITALS (11 sets, daily range): BP systolic 119–141; BP diastolic 60–79; PULSE 76–106; RESP 16–24; TEMP 36.5–37.1; O2SAT 95–98; BMI 20.4
[2022-10-18 05:31] LABS: Absolute Lymphocyte Count 1.29 X10^3/uL (0.83-4.51); Absolute Neutrophil Count 14.1 X10^3/uL (2.0-7.7); Basophil# 0.07 X10^3/uL; Basophil% 0.4 % (0-1); Eosinophil# 0.11 X10^3/uL; Eosinophils% 0.7 % (0-5); Hematocrit 29.5 % (40-54); Hemoglobin 9.2 g/dL (13.0-16.5); Lymphocyte # 1.29 X10^3/ul (0.83-4.51); Lymphocyte % 7.7 % (19-41); Mean Corp Hgb Conc 31.2 g/dL (32-36); Mean Corpuscular Hgb 28.5 pg (27.0-32.0); Mean Corpuscular Volume 91.3 fL (80-94); Mean Platelet Vol. 10.7 fl (6.2-12.0); Monocyte# 0.99 X10^3/uL; Monocyte% 5.9 % (0-10); NRBC Flagged by Analyzer 0 % (0-5); Neutrophil # 14.14 X10^3/uL (2.7-7.7); Neutrophil % 84.5 % (47-70); Platelet Count 481 K/mm3 (150-450); RBC Distribution Width CV 15.8 % (11.6-14.6); Red Blood Count 3.23 M/mm3 (4.6-6.2); White Blood Count 16.7 K/mm3 (4.4-11.0)
[2022-10-18 06:03] LABS: Anion Gap 5 (5-15); BUN 23 mg/dL (7-18); Calcium,Total 8.2 mg/dL (8.5-10.1); Chloride 104 mmol/L (98-107); Creatinine, Serum 0.59 mg/dL (0.70-1.30); EST Glomerular Filtration Rate 143 mL/min (>60); Est Glom Filt Rate - Afr Amer 173 mL/min (>60); Estimated Creatinine Clearance 60.59 ml/min; Glucose 115 mg/dL (74-106); Potassium 2.9 mmol/L (3.5-5.1); Sodium Level 135 mmol/L (136-145)
[2022-10-18] MEDS: Ipratropium/Albuterol Sulfate 3 ML AMPUL.NEB INHALATION ×3 (07:37→20:59)
[2022-10-18 08:23] LABS: Magnesium 1.5 mg/dL (1.6-2.6)
[2022-10-18] MEDS: Pantoprazole Sodium 40 MG Tablet PO ×2 (09:19→21:05)
[2022-10-18] MEDS: Lisinopril 20 MG Tablet PO (09:19)
[2022-10-18] MEDS: Sertraline 100 MG Tablet PO (09:19)
[2022-10-18] MEDS: Furosemide 40 MG Tablet PO (09:19)
[2022-10-18] MEDS: Juven (unflavored) Packet 1 PACKET PO ×2 (09:19→16:24)
[2022-10-18] MEDS: amLODIPine 10 MG Tablet PO (09:19)
[2022-10-18] MEDS: Potassium Chloride Oral Tablet 20 MEQ PO ×2 (09:19→16:24)
[2022-10-18] MEDS: Potassium Chloride 10mEq/100mL 10 MEQ/100 ML IV.SOLN. 100 MEQ IV BOLUS ×4 (09:25→15:31)
[2022-10-18] MEDS: Ensure Plus High Protein 120 ML LIQUID PO ×2 (09:25→16:25)
--- NOTE | 2022-10-18 11:29 | PN_ITS ---
Subjective Subjective Patient seen and examined. He had no active complaints. Review of systems is otherwise negative. WBC has trended down slightly. Review of systems is otherwise negative. He is on 2L of oxygen. Objective Data Objective Data Vital Signs: Vital Signs Temp Pulse Resp BP Pulse Ox O2 Del Method O2 Flow Rate 97.9 F 106 H 16 122/79 H 97 Nasal Cannula 2 10/18/22 09:16 10/18/22 09:16 10/18/22 09:16 10/18/22 09:16 10/18/22 09:16 10/18/22 10:00 10/18/22 10:00 FiO2 40 10/09/22 00:00 Oxygen Flow Rate (L/min) 2 Oxygen Delivery Method Nasal Cannula Weight: 145 lb 11.609 oz Body Mass Index (BMI) 20.4 Intake & Output: Intake and Output for Last 24 Hours 10/16/22 10/17/22 10/18/22 23:59 23:59 23:59 Intake Total 1694 / 1694 1943 / 1943 317 / 317 Output Total 2375 / 2375 2895 / 2895 1500 / 1500 Balance -681 / -681 -952 / -952 -1183 / -1183 Medical Nutrition Assessment Dietitian: Malnutrition Criteria Met Start: 10/07/22 14:13 Freq: Status: Active Protocol: Document 10/09/22 09:32 GEORGE (Rec: 10/09/22 09:32 GEORGE [id number]) Nutrition Malnutrition Evidence of Malnutrition Exists Yes Malnutrition (severe): Chronic Evidenced By Suboptimal Energy Intake ( Severe),Weight Loss (Severe) Intake Problem Increased Nutrient Needs (specify) Etiology protein needs related to skin status Signs/Symptoms as evidenced by PI love heels and R buttock/sacrum - followed by wound nurse; on Alfonso bid Status Active Problem Clinical Problem Acute Disease or Injury Related Malnutrition Etiology severe, acute malnutrition related to inadequate energy intake Signs/Symptoms as evidenced by unintentional wt loss of 19.4#/12% x 1 month ; estimated PO intake meeting <75% of estimated energy needs > 1 month Status Active Problem Recommendation Dietitian Recommendations/Changes recommend advance diet as tolerated to regular, - texture /consistency per [employer] SECURITY ADMINISTRATOR; Ensure Plus High Protein 120mL 4x/day w/ medpass when diet advanced Alfonso BID for wound healing. Lab / Micro Data Result Diagrams: 10/18/22 04:44 10/18/22 04:44 Labs: Laboratory Results - last 24 hr 10/17/22 19:30: Vancomycin Trough 14.6 10/18/22 04:44: WBC 16.7 H, RBC 3.23 L, Hgb 9.2 L, Hct 29.5 L, MCV 91.3, MCH 28.5, MCHC 31.2 L, RDW Std Deviation 53.0 H, RDW Coeff of Luis 15.8 H, Plt Count 481 H, MPV 10.7, Immature Gran % (Auto) 0.800, Neut % (Auto) 84.5 H, Lymph % (Auto) 7.7 L, [place] % (Auto) 5.9, Eos % (Auto) 0.7, Baso % (Auto) 0.4, Absolute Neuts (auto) 14.1 H, Absolute Lymphs (auto) 1.29, Nucleated RBC % 0 10/18/22 04:44: Sodium 135 L, Potassium 2.9 L, Chloride 104, Carbon Dioxide 26.0, Anion Gap 5, BUN 23 H, Creatinine 0.59 L, Estim Creat Clear Calc 60.59, Est GFR (MDRD) Af Amer 173, Est GFR (MDRD) Non-Af 143, BUN/Creatinine Ratio 39.0 H, Glucose 115 H, Calcium 8.2 L 10/18/22 04:44: Magnesium 1.5 L Micro: Microbiology 10/15/22 Unknown Tissue - Sacral Gram Stain - Final 10/15/22 Unknown Tissue - Sacral Wound Culture - Preliminary Enterococcus faecium Meth. resistant Staph. aureus 10/15/22 Unknown Bone - Sacral Bone Gram Stain - Final 10/15/22 Unknown Bone - Sacral Bone Wound Culture - Preliminary No growth-Final to follow 10/16/22 02:07 Stool C. difficile GDH Antigen & Toxins - Final 10/16/22 02:07 Stool C. difficile DNA Amplification - Final 10/10/22 12:55 Blood Culture (Wb) - Left Wrist Blood Culture - Final No growth in 5 days. 10/10/22 12:45 Blood Culture (Wb) - Left Hand Blood Culture - Final No growth in 5 days. 10/07/22 03:45 Blood Culture (Wb) - Left Wrist Blood Culture - Final Staphylococcus species 10/07/22 03:23 Blood Culture (Wb) - Left Wrist Bacteria Detection (PCR) - Final Coag Negative Staph 10/07/22 03:23 Blood Culture (Wb) - Left Wrist Blood Culture - Final Staphylococcus hominis hominis 10/07/22 09:00 Wound - Buttock Gram Stain - Final 10/07/22 09:00 Wound - Buttock Wound Culture - Final Streptococcus pyogenes Meth. resistant Staph. aureus 10/07/22 03:50 Urine, Catheterized Urine Culture - Final Presumptive C albicans Meth. resistant Staph. aureus 10/07/22 08:50 Stool Enteric Bacteriology - Final 10/07/22 08:50 Stool C. difficile GDH Antigen & Toxins - Final 10/07/22 08:50 Stool C. difficile DNA Amplification - Final 10/07/22 08:55 Nasal Secretion SARS-CoV-2 & FLU Antigen (Rapid) - Final 10/07/22 03:15 Stool Stool Occult Blood (VIMAL) - Final Occult Blood Positive Physical Exam Const alert, oriented x3 and no apparent distress Constitutional Narrative: frail General Appearance: cooperative HEENT normocephalic and head/scalp atraumatic Eyes PERRL and EOMs intact bilaterally Neck no lymphadenopathy and supple Lymph Lymphatic: no lymphadenopathy noted and no lymphedema noted Resp Resp Narrative: Mildly diminished breath sounds bibasally. No wheezes or crackles. On 2L of o xygen Cardio regular rate, regular rhythm, S1 normal heart sound, S2 normal heart sound and no murmurs GI normal to inspection, nondistended, normoactive bowel sounds, soft to palpation, non-tender and non-distended Extremity normal capillary refill, no clubbing, cyanosis or edema and no calf tenderness Skin Skin Narrative: intact pressure dressing over surgical site General Skin Exam: no breakdown Neuro CN's II-XII intact bilaterally, no focal motor deficits, no sensory deficits noted and deep tendon reflexes 2+ bilaterally Motor Exam: strength 5/5 throughout Psych thought process normal and cooperative Appearance: appropriate Assessment & Plan Assessment/Plan (1) Sepsis: (2) GI bleed: PLAN: Plan #UTI * was admitted due to sepsis due to UTI and decubitus ulcers. * He was noted to have numerous foot wounds and buttock ulcer and foot x-ray showed osteopenia of the heads of the fifth metatarsals. Wound cultures grew strep pyogenes and MRSA. Urine culture grew MRSA and Ursula * Blood cultures 1 out of 2 grew coagulase-negative staph. * On IV vancomycin and unasyn * ID on board; * Critical care also on board. * * #Hypoxia * Concerning for aspiration. Speech therapy on board. * on 2L of oxygen. * Breathing treatments of bronchodilators. Titrate oxygen to maintain saturation above 90%. #Stage IV Sacral decubitus ulcer * Present on admission * s/p excision of the infected left sacral pressure sore which was stage IV with partial cystectomy for osteomyelitis. * wbc elevated at ~ 18.5 today. * on IV vancomycin and unasyn * ID and plastic surgery on board * wound cultures growing Gram positive cocci, possibly Enterococcus sp, as well as Staph aureus * #GI bleed due to bleeding peptic ulcer * He was noted to have positive stool for occult blood during this admission. He had had a history of GI bleed and being seen at [facility] a month prior to this admission for hemorrhagic shock due to bleeding duodenal ulcer. He had several clips placed there during EGD and required 5 units of packed red blood cells during his admission at [facility]. * He is s/p EGD on 10/08/2022 whilst here which showed severe erosive esophagitis and benign-appearing esophageal stenosis which was dilated as well as an o ozing duodenal ulcer with pigmented material which was injected and treated with heater probe. * On IV PPI every 12 hourly. Will switch to PO PPI 40mg bid * Hemoglobin has remained stable. * GI on board. * #Hypokalemia:potassium is still 2.9 today. WIll replace and trend. #Hypomagnesemia: magnesium is 1.5. Will replace aggressively and trend. #Non-STEMI * Had elevated troponins. This was thought to be due to demand ischemia due to his hypoxia. EKG showed no acute ST changes. * has remained stable * 2D echo showed EF of 40% and moderate global left Systolic dysfunction with moderate right ventricular systolic dysfunction and lipomatous hypertrophy of the atrial septum #Atherosclerosis of extremities with peripheral vascular disease * Has had a CTA during previous admission which showed severe diffuse atherosclerotic stenosis notably of bilateral iliac and femoral arteries. He is not a good candidate for intervention now. * On high intensity statin. Follow-up with vascular surgery on outpatient basis * Wound care on board * #History of CVA: On high intensity statin and aspirin #Hypertension: resolved. Will resume BP meds #Severe protein calorie malnutrition * as evidenced by unintentional wt loss of 19.4% x 1 month with estimated p.o. intake meeting less than 75% of estimated energy needs for more than 1 month. * Dietitian on board. * on dietary supplements DVT prophylaxis: SCDs Charges/Coding Visit Charges Inpatient E&M: 26683 Subs Hosp L2
[2022-10-18] MEDS: Magnesium Sulfate 4gm/100mL 4 GM/100 ML IV.SOLN. IV (15:32)
[2022-10-18] MEDS: Vancomycin IV 1,000 MG/200 ML BAG 200 MG IV (21:03)
[2022-10-18] MEDS: Atorvastatin Calcium 40 MG Tablet PO (21:05)
[2022-10-19] VITALS (10 sets, daily range): BP systolic 104–136; BP diastolic 54–67; PULSE 81–89; RESP 16–18; TEMP 36.6–36.9; O2SAT 93–98; BMI 20.2
[2022-10-19 05:53] LABS: Absolute Lymphocyte Count 0.91 X10^3/uL (0.83-4.51); Absolute Neutrophil Count 19.1 X10^3/uL (2.0-7.7); Basophil# 0.07 X10^3/uL; Basophil% 0.3 % (0-1); Eosinophil# 0.03 X10^3/uL; Eosinophils% 0.1 % (0-5); Hemoglobin 9.2 g/dL (13.0-16.5); Lymphocyte # 0.91 X10^3/ul (0.83-4.51); Lymphocyte % 4.3 % (19-41); Mean Corp Hgb Conc 31.7 g/dL (32-36); Mean Corpuscular Hgb 28.8 pg (27.0-32.0); Mean Corpuscular Volume 90.6 fL (80-94); Mean Platelet Vol. 10.6 fl (6.2-12.0); Monocyte% 5.1 % (0-10); NRBC Flagged by Analyzer 0 % (0-5); Neutrophil # 19.11 X10^3/uL (2.7-7.7); Neutrophil % 89.5 % (47-70); Platelet Count 471 K/mm3 (150-450); RBC Distribution Width SD 53.1 fl (35.1-43.9); White Blood Count 21.4 K/mm3 (4.4-11.0)
[2022-10-19 06:09] LABS: Anion Gap 5 (5-15); BUN 21 mg/dL (7-18); BUN/Creat Ratio 26.6 RATIO (10-20); Calcium,Total 8.4 mg/dL (8.5-10.1); Chloride 107 mmol/L (98-107); Creatinine, Serum 0.79 mg/dL (0.70-1.30); EST Glomerular Filtration Rate 102 mL/min (>60); Est Glom Filt Rate - Afr Amer 124 mL/min (>60); Estimated Creatinine Clearance 60.59 ml/min; Glucose 108 mg/dL (74-106); Potassium 2.8 mmol/L (3.5-5.1); Sodium Level 138 mmol/L (136-145)
[2022-10-19] MEDS: Ipratropium/Albuterol Sulfate 3 ML AMPUL.NEB INHALATION ×2 (07:20→19:34)
[2022-10-19 08:14] LABS: Magnesium 2.6 mg/dL (1.6-2.6)
[2022-10-19] MEDS: Potassium Chloride Oral Soln 20 MEQ/15 ML UDC 60 MEQ PO ×2 (08:57→16:48)
[2022-10-19] MEDS: amLODIPine 10 MG Tablet PO (08:57)
[2022-10-19] MEDS: Furosemide 40 MG Tablet PO (08:57)
[2022-10-19] MEDS: Pantoprazole Sodium 40 MG Tablet PO ×2 (08:57→22:28)
[2022-10-19] MEDS: Potassium Chloride Oral Tablet 20 MEQ PO ×2 (08:57→16:48)
[2022-10-19] MEDS: Juven (unflavored) Packet 1 PACKET PO ×2 (08:57→16:47)
[2022-10-19] MEDS: Lisinopril 20 MG Tablet PO (08:58)
[2022-10-19] MEDS: Sertraline 100 MG Tablet PO (08:58)
--- NOTE | 2022-10-19 10:21 | CASEMGMT ---
SW sent updates to [facility] via [employer]. Crystal Jolly DANCER OR CHOREOGRAPHER WHAT JOB TITLES MEAN
--- NOTE | 2022-10-19 12:47 | WOUNDNOTE ---
wound photo: left sacrum/buttock
--- NOTE | 2022-10-19 12:48 | WOUNDNOTE ---
wound photo: left foot
--- NOTE | 2022-10-19 12:49 | WOUNDNOTE ---
wound photo: left heel
--- NOTE | 2022-10-19 12:50 | WOUNDNOTE ---
wound photo: right foot
--- NOTE | 2022-10-19 12:50 | WOUNDNOTE ---
wound photo: right foot
--- NOTE | 2022-10-19 14:10 | PCM.PN.ID ---
Physical Exam Narrative Feeling ok, no fever, no abd pain Const alert and no apparent distress General Appearance: cooperative Resp normal air movement and clear to auscultation bilaterally Cardio regular rate and regular rhythm GI soft to palpation, non-tender and non-distended Skin Skin Narrative: reviewed photos ID ID: Route of nutrition/ use of supplements: [] Nutritional Intake: [] IV Site: [] Soto Catheter: [] Assessment & Plan Assessment/Plan (1) Sepsis: PLAN: MR-S. hominis bacteremia. Sacral wound with redness/tunneling, wound cx so far with strep and MRSA. Ucx with yeast and MRSA. Sacral wound with ongoing gross purulence and frequent stool contamination. Consulted plastic surgery. Cont vanc/unasyn. Taken to OR 10/15 for I&D of osteo by Dr. Winkler. Consulted surgery, but he is not interested in diverting ostomy. Surg cx with VRE and MRSA, will change vanc to dapto and order picc. Cdiff (+) but toxin neg. Having melena with recent duodenal ulcer. Low suspicion for active cdiff at this time, but will monitor while on abx here. Will follow
--- NOTE | 2022-10-19 14:53 | CHAPLAIN ---
Type of Pastoral Visit _x__ Initial Visit ___ Follow-up Visit ___ On-call Visit ___ General Patient Visit ___ Spiritual Assessment ___ Family Conference ___ Bereavement ___ Rapid Response ___ Code Blue ___ Other (describe below) Pastoral Care Referral From _x__ Patient ___ Family ___ Nurse ___ Physician ___ Stripper Preliminary ___ Soldering Machine Tender ___ Other (describe below) Sacrament/Intervention ___ Active listening ___ Anointing ___ Alevism ___ Bereavement ___ Communion ___ Sharona exploration ___ ___ Life review ___ Prayer ___ Reconciliation ___ Sacrament of Sick _x__ Supportive presence ___ Wedding ___ Other (describe below) Pastoral Comments a calling card was being left at bedside because patient was sleeping; however pt awoke and then was offered support and presence; pt declined need of anything including being present but he did welcome a prayer
--- NOTE | 2022-10-19 18:35 | PN.HOSP_ITS ---
Reason for Visit Reason for Visit: Diagnoses Sepsis, unspecified organism (10/07/22) Methicillin resistant Staphylococcus aureus infection, unspecified site (10/07/22) Anemia, unspecified (10/07/22) Unspecified severe protein-calorie malnutrition (10/07/22) Nicotine dependence, unspecified, uncomplicated (10/07/22) Nicotine dependence, cigarettes, uncomplicated (10/07/22) Essential (primary) hypertension (10/07/22) Peripheral vascular disease, unspecified (10/07/22) Gangrene, not elsewhere classified (10/07/22) Pneumonia, unspecified organism (10/07/22) Acute respiratory failure with hypoxia (10/07/22) Gastrointestinal hemorrhage, unspecified (10/07/22) Local infection of the skin and subcutaneous tissue, unspecified (10/07/22) Pressure ulcer of sacral region, unstageable (10/07/22) Pressure ulcer of sacral region, stage 4 (10/07/22) Pressure ulcer of unspecified site, stage 4 (10/07/22) Non-pressure chronic ulcer of other part of right foot with necrosis of muscle (10/07/22) Non-pressure chronic ulcer of buttock with necrosis of muscle (10/07/22) Osteomyelitis, unspecified (10/07/22) Dysphagia, unspecified (10/07/22) Personal history of transient ischemic attack (TIA), and cerebral infarction without residual deficits (10/07/22) Dependence on other enabling machines and devices (10/07/22) Subjective Subjective Patient denies any overnight issues. Remains on 2 L supplemental nasal cannula. Final culture results show MRSA and VRE. Antibiotic transitions have been made by infectious disease. Patient denies any current needs. Objective Data Objective Data Vital Signs: Vital Signs Temp Pulse Resp BP Pulse Ox O2 Del Method O2 Flow Rate 98.0 F 81 18 125/67 H 95 Nasal Cannula 2 10/19/22 15:15 10/19/22 15:15 10/19/22 15:15 10/19/22 15:15 10/19/22 15:15 10/19/22 15:15 10/19/22 15:15 FiO2 40 10/09/22 00:00 Oxygen Flow Rate (L/min) 2 Oxygen Delivery Method Nasal Cannula Weight: 65.7 kg Body Mass Index (BMI) 20.2 Intake & Output: Intake and Output for Last 24 Hours 10/17/22 10/18/22 10/19/22 23:59 23:59 23:59 Intake Total 1943 / 1943 1291 / 1291 784 / 784 Output Total 2895 / 2895 2200 / 2200 525 / 525 Balance -952 / -952 -909 / -909 259 / 259 Medical Nutrition Assessment Dietitian: Malnutrition Criteria Met Start: 10/07/22 14:13 Freq: Status: Active Protocol: Document 10/19/22 13:28 RMA (Rec: 10/19/22 13:28 RMA [email or web address]) Nutrition Malnutrition Evidence of Malnutrition Exists Yes Malnutrition (severe): Chronic Evidenced By Suboptimal Energy Intake ( Severe),Weight Loss (Severe) Intake Problem Increased Nutrient Needs (specify) Etiology protein needs related to skin status Signs/Symptoms as evidenced by pressure injury love heels and R buttock /sacrum; Stage IV Sacral decubitus ulcer Status Active Problem Clinical Problem Acute Disease or Injury Related Malnutrition Etiology severe, acute malnutrition related to inadequate energy intake Signs/Symptoms as evidenced by unintentional wt loss of 19.4#/12% x 1 month block captain; estimated PO intake meeting <75% of estimated energy needs > 1 month block captain Status Active Problem Recommendation Dietitian Recommendations/Changes Continue regular diet with texture /consistency per ASSESSMENT DIRECTOR. Continue Ensure Plus High Protein 120mL 2x/day w/ medpass. Continue Alfonso BID for wound healing. Will add ensure/fortified pudding BID w/ lunch and dinner as tolerated. Trend weights closely. Lab / Micro Data Result Diagrams: 10/19/22 05:12 10/19/22 05:12 Labs: Laboratory Results - last 24 hr 10/19/22 05:12: WBC 21.4 H, RBC 3.20 L, Hgb 9.2 L, Hct 29.0 L, MCV 90.6, MCH 28.8, MCHC 31.7 L, RDW Std Deviation 53.1 H, RDW Coeff of Luis 16.0 H, Plt Count 471 H, MPV 10.6, Immature Gran % (Auto) 0.700, Neut % (Auto) 89.5 H, Lymph % (Auto) 4.3 L, [place] % (Auto) 5.1, Eos % (Auto) 0.1, Baso % (Auto) 0.3, Absolute Neuts (auto) 19.1 H, Absolute Lymphs (auto) 0.91, Nucleated RBC % 0 10/19/22 05:12: Sodium 138, Potassium 2.8 L, Chloride 107, Carbon Dioxide 26.0, Anion Gap 5, BUN 21 H, Creatinine 0.79, Estim Creat Clear Calc 60.59, Est GFR (MDRD) Af Amer 124, Est GFR (MDRD) Non-Af 102, BUN/Creatinine Ratio 26.6 H, Glucose 108 H, Calcium 8.4 L 10/19/22 05:12: Magnesium 2.6 Micro: Microbiology 10/15/22 Unknown Tissue - Sacral Gram Stain - Final 10/15/22 Unknown Tissue - Sacral Wound Culture - Final Vancomycin Resist. E. faecium Meth. resistant Staph. aureus 10/15/22 Unknown Tissue - Sacral Anaerobic Culture - Preliminary Checking for anaerobes, further studies to follow. 10/15/22 Unknown Bone - Sacral Bone Gram Stain - Final 10/15/22 Unknown Bone - Sacral Bone Wound Culture - Final No growth aerobically. 10/15/22 Unknown Bone - Sacral Bone Anaerobic Culture - Preliminary No growth in 48 hours. 10/16/22 02:07 Stool C. difficile GDH Antigen & Toxins - Final 10/16/22 02:07 Stool C. difficile DNA Amplification - Final 10/10/22 12:55 Blood Culture (Wb) - Left Wrist Blood Culture - Final No growth in 5 days. 10/10/22 12:45 Blood Culture (Wb) - Left Hand Blood Culture - Final No growth in 5 days. 10/07/22 03:45 Blood Culture (Wb) - Left Wrist Blood Culture - Final Staphylococcus species 10/07/22 03:23 Blood Culture (Wb) - Left Wrist Bacteria Detection (PCR) - Final Coag Negative Staph 10/07/22 03:23 Blood Culture (Wb) - Left Wrist Blood Culture - Final Staphylococcus hominis hominis 10/07/22 09:00 Wound - Buttock Gram Stain - Final 10/07/22 09:00 Wound - Buttock Wound Culture - Final Streptococcus pyogenes Meth. resistant Staph. aureus 10/07/22 03:50 Urine, Catheterized Urine Culture - Final Presumptive C albicans Meth. resistant Staph. aureus 10/07/22 08:50 Stool Enteric Bacteriology - Final 10/07/22 08:50 Stool C. difficile GDH Antigen & Toxins - Final 10/07/22 08:50 Stool C. difficile DNA Amplification - Final 10/07/22 08:55 Nasal Secretion SARS-CoV-2 & FLU Antigen (Rapid) - Final 10/07/22 03:15 Stool Stool Occult Blood (VIMAL) - Final Occult Blood Positive Physical Exam Const alert, oriented x3, no apparent distress and well nourished Constitutional Narrative: Chronically ill-appearing, older white male who appears older than stated age, sitting up in bed watching television, appears comfortable nontoxic, currently on 2 L nasal cannula with no signs of respiratory distress HEENT head/scalp atraumatic, moist oral mucous membranes and oropharynx normal HEENT Narrative: Dentition is poor, Mallampati is 2, no thrush Head and Scalp: normocephalic Resp normal respiratory effort, no retractions, no use of accessory muscles and clear to auscultation bilaterally Resp Narrative: Diffusely diminished but currently clear Auscultation: Negative for rales, rhonchi or wheezes Cardio regular rate, regular rhythm, S1 normal heart sound, S2 normal heart sound, no murmurs, no rub and no gallops GI normal to inspection, nondistended, normoactive bowel sounds, soft to palpation and non-tender Extremity no clubbing, cyanosis or edema Extremity Narrative: Diminished cap refill Skin No no rashes or lesions noted, No no wounds, skin turgor normal, no jaundice, no petechiae and no mottling Skin Narrative: Buttock wound pictures reviewed, lower extremity wound pictures reviewed Neuro oriented x3, CN's II-XII intact bilaterally, moves all extremities and no focal motor deficits Psych Psych Narrative: Affect is flat mood seems somewhat depressed, eye contact is fair Assessment & Plan Assessment/Plan (1) Anemia: (2) Hypoxia: (3) Sepsis: (4) Decubitus ulcer of sacral region, unstageable: (5) MRSA (methicillin resistant Staphylococcus aureus) infection: (6) Bacteremia: (7) Hypokalemia: (8) Severe malnutrition: (9) NSTEMI, initial episode of care: PLAN: Plan Sepsis secondary to staph hominis bacteremia -Sepsis has resolved -Antibiotics per infectious disease -ID is recommending vancomycin to be converted to daptomycin and PICC line ordered for chronic treatment after discharge Acute hypoxia -Patient on room air at baseline -Currently requiring 2 L nasal cannula -Oxygen as able -Concern is for recurrent aspiration -Speech therapy following - may need discharged on oral therapy Dysphagia -Speech therapy is following -Continue modified diet as ordered Chronic bilateral foot wounds secondary to vascular disease -X-ray of the foot shows mild soft tissue swelling with no daylin bone destruct adonay changes -Appear to be vascular in nature -PVRs show severe bilateral lower extremity vascular disease with right TAMIE at 0.43 and left TAMIE at 0.33 -Lower extremity CT performed and shows significant calcification however final read is pending -Podiatry following appreciate input -Vascular surgery was consulted and plan is for outpatient follow-up after more acute medical issues are remedied and less gangrene or worsening infection are identified -Continue broad-spectrum antibiotics -Wound care is following Severe malnutrition -Continue supplements as able with dysphagia -Dietitian following Pressure ulcer-unstageable -MRSA and VRE -Antibiotics per infectious disease -Status postdebridement in the OR by plastic surgery -Wound VAC per general surgery -Antibiotics to continue per infectious disease--> vancomycin was transitioned to daptomycin with VRE -Continue wound care -Appreciate plastic surgery involvement Recent GI bleed secondary to duodenal ulcer -Did require 5 units transfusion during hospitalization at [place] -EGD performed and showed duodenal ulcer that required clipping at [place] -Acute hypoxic respiratory failure secondary to staph/aspiration pneumonia -Patient on room air at baseline -Patient had been weaned to as low as 2 L this morning but after taking pills this morning desatted and is now on 6 L but oxygen saturations were 100% so therefore will wean as able -Continue n.p.o. -As needed BiPAP -Chest x-ray shows infiltrates -COVID rapid/flu are negative -COVID PCR is negative -Respiratory viral panel is negative -Strep pneumo and Legionella antigens are negative -Sputum culture shows staph species -Blood cultures negative -Continue DuoNebs and as needed albuterol -Continue IV Solu-Medrol but weaned to twice daily -Continue vancomycin and Zosyn with recent hospitalization until identification and sensitivities are finalized -Speech therapy is following Dysphagia -Speech therapy is following -More issues with concerns for aspiration overnight -N.p.o. -MBS today is pending -Crush essential meds in place in [place]au[place] Acute bilateral foot wounds -X-ray of the foot shows mild soft tissue swelling with no daylin bone destructive changes -Appear to be vascular in nature -PVRs show severe bilateral lower extremity vascular disease with right TAMIE at 0.43 and left TAMIE at 0.33 -Lower extremity CT performed and shows significant calcification however final read is pending -Podiatry following appreciate input -Vascular surgery was consulted and plan is for outpatient follow-up after more acute medical issues are remedied and less gangrene or worsening infection are identified -ESR and CRP as expected are markedly elevated -Continue broad-spectrum antibiotics -Wound care is following Severe malnutrition -Continue supplements as able with dysphagia -Dietitian following Acute urinary retention -Patient with Soto catheter from facility -Was placed during last hospitalization -Continue Flomax -UA is not consistent with acute infection -If able to remove we will get PVRs -Recommend outpatient follow-up with urology Recent GI bleed secondary to duodenal ulcer -Patient with anemia on presentation and hemoglobin has drifted down -Seems to be stable at this time in the mid 7 range -Check guaiac with recent GI bleed and if positive consult GI for repeat EGD given history -Did require 5 units transfusion during hospitalization at [place] -EGD performed and showed duodenal ulcer that required clipping -Acute hypoxic respiratory failure secondary to staph/aspiration pneumonia -Patient on room air at baseline -Patient had been weaned to as low as 2 L this morning but after taking pills this morning desatted and is now on 6 L but oxygen saturations were 100% so therefore will wean as able -Continue n.p.o. -As needed BiPAP -Chest x-ray shows infiltrates -COVID rapid/flu are negative -COVID PCR is negative -Respiratory viral panel is negative -Strep pneumo and Legionella antigens are negative -Sputum culture shows staph species -Blood cultures negative -Continue DuoNebs and as needed albuterol -Continue IV Solu-Medrol but weaned to twice daily -Continue vancomycin and Zosyn with recent hospitalization until identification and sensitivities are finalized -Speech therapy is following Hypokalemia -We will replace with oral potassium 60 mill equivalents p.o. twice daily today -Recheck a.m. potassium -Magnesium level has corrected NSTEMI -Type II -Due to demand ischemia with hypoxia -No chest pain -Echocardiogram showed EF of 40% with moderate global left systolic dysfunction and moderate right ventricular systolic dysfunction Dysphagia -Speech therapy is following -More issues with concerns for aspiration overnight -N.p.o. -MBS today is pending -Crush essential meds in place in [facility] Acute bilateral foot wounds -X-ray of the foot shows mild soft tissue swelling with no daylin bone destructive changes -Appear to be vascular in nature -PVRs show severe bilateral lower extremity vascular disease with right TAMIE at 0.43 and left TAMIE at 0.33 -Lower extremity CT performed and shows significant calcification however final read is pending -Podiatry following appreciate input -Vascular surgery was consulted and plan is for outpatient follow-up after more acute medical issues are remedied and less gangrene or worsening infection are identified -ESR and CRP as expected are markedly elevated -Continue broad-spectrum antibiotics -Wound care is following Severe malnutrition -Continue supplements as able with dysphagia -Dietitian following Acute urinary retention -Patient with Soto catheter from facility -Was placed during last hospitalization -Continue Flomax -UA is not consistent with acute infection -If able to remove we will get PVRs -Recommend outpatient follow-up with urology Recent GI bleed secondary to duodenal ulcer -Hemoglobin is currently stable -Did require 5 units transfusion during hospitalization at [place] -EGD performed and showed duodenal ulcer that required clipping while at [place] -Current bleeding admitted here earlier this hospitalization ?-EGD on 10/08/2022 whilst here which showed severe erosive esophagitis and benign-appearing esophageal stenosis which was dilated as well as an oozing duodenal ulcer with pigmented material which was injected and treated with heater probe. -Continue tonics 40 mg p.o. twice daily -GI following-appreciate input History of stroke/bilateral carotid stenosis/HTN/HPL -Continue statin -Aspirin on hold due to recent GI bleed -Continue diuresis -Continue lisinopril 20 mg daily -Continue amlodipine 10 mg daily Severe peripheral vascular disease -Aspirin/Plavix are on hold secondary to recent severe GI bleed -Continue outpatient vascular follow-up -right TAMIE at 0.43 and left TAMIE at 0.33 BPH -Restart home Flomax Anxiety/depression -Continue sertraline History of alcohol abuse -Patient quit drinking following his stroke -Encourage continued sobriety Tobacco abuse -Encouraged cessation -Nicotine replacement available if desired DVT prophylaxis -SCDs -Chemoprophylaxis deferred due to recent GI bleeding CODE STATUS -DNR CCA no intubation -Continue PPI 40 mg but transition to IV given n.p.o. status -Hemoglobin at discharge from [facility] was 8.6 -repeat CBC in a.m. History of stroke/bilateral carotid stenosis/HTN/HPL -Continue statin -Aspirin on hold due to recent GI bleed--> may need to discuss with GI here to r einitiate if vascular surgery needs to be pursued -Restart home blood pressure medicine -Beta-blockers with severe PVD Severe peripheral vascular disease -Aspirin/Plavix are on hold secondary to recent severe GI bleed -Vascular surgery consult is pending -right TAMIE at 0.43 and left TAMIE at 0.33 BPH -Continue Flomax Anxiety/depression -Continue sertraline Chronic transaminitis -Slightly improved from admission -If remains elevated consider further work-up History of alcohol abuse -Patient quit drinking following his stroke -Encourage continued sobriety Tobacco abuse -Encouraged cessation -Nicotine replacement available if desired DVT prophylaxis -SCDs -Chemoprophylaxis deferred due to recent GI bleeding CODE STATUS -DNR CCA no intubation -Continue PPI 40 mg but transition to IV given n.p.o. status -Hemoglobin at discharge from [facility] was 8.6 -repeat CBC in a.m. History of stroke/bilateral carotid stenosis/HTN/HPL -Continue statin -Aspirin on hold due to recent GI bleed--> may need to discuss with GI here to reinitiate if vascular surgery needs to be pursued -Restart home blood pressure medicine -Beta-blockers with severe PVD Severe peripheral vascular disease -Aspirin/Plavix are on hold secondary to recent severe GI bleed -Vascular surgery consult is pending -right TAMIE at 0.43 and left TAMIE at 0.33 BPH -Continue Flomax Anxiety/depression -Continue sertraline Chronic transaminitis -Slightly improved from admission -If remains elevated consider further work-up History of alcohol abuse -Patient quit drinking following his stroke -Encourage continued sobriety Tobacco abuse -Encouraged cessation -Nicotine replacement available if desired DVT prophylaxis -SCDs -Chemoprophylaxis deferred due to recent GI bleeding CODE STATUS -Full code
[2022-10-19] MEDS: Atorvastatin Calcium 40 MG Tablet PO (22:28)
[2022-10-19] MEDS: Ensure Plus High Protein 120 ML LIQUID PO (22:28)
[2022-10-20] VITALS (7 sets, daily range): BP systolic 113–132; BP diastolic 56–66; PULSE 75–100; RESP 16–20; TEMP 36.4–37.1; O2SAT 92–98; BMI 21.7
[2022-10-20 06:36] LABS: Absolute Lymphocyte Count 1.16 X10^3/uL (0.83-4.51); Absolute Neutrophil Count 10.8 X10^3/uL (2.0-7.7); Basophil# 0.09 X10^3/uL; Basophil% 0.7 % (0-1); Eosinophil# 0.17 X10^3/uL; Eosinophils% 1.3 % (0-5); Hematocrit 28.6 % (40-54); Hemoglobin 8.8 g/dL (13.0-16.5); Lymphocyte # 1.16 X10^3/ul (0.83-4.51); Lymphocyte % 8.8 % (19-41); Mean Corp Hgb Conc 30.8 g/dL (32-36); Mean Corpuscular Hgb 28.5 pg (27.0-32.0); Mean Corpuscular Volume 92.6 fL (80-94); Monocyte# 0.95 X10^3/uL; Monocyte% 7.2 % (0-10); NRBC Flagged by Analyzer 0 % (0-5); Neutrophil # 10.76 X10^3/uL (2.7-7.7); Neutrophil % 81.2 % (47-70); Platelet Count 460 K/mm3 (150-450); RBC Distribution Width SD 54.4 fl (35.1-43.9); Red Blood Count 3.09 M/mm3 (4.6-6.2); White Blood Count 13.2 K/mm3 (4.4-11.0)
[2022-10-20 06:59] LABS: Anion Gap 3 (5-15); BUN 25 mg/dL (7-18); BUN/Creat Ratio 41.9 RATIO (10-20); Calcium,Total 8.3 mg/dL (8.5-10.1); Chloride 107 mmol/L (98-107); EST Glomerular Filtration Rate 141 mL/min (>60); Est Glom Filt Rate - Afr Amer 170 mL/min (>60); Estimated Creatinine Clearance 64.53 ml/min; Glucose 118 mg/dL (74-106); Potassium 3.7 mmol/L (3.5-5.1); Sodium Level 136 mmol/L (136-145)
[2022-10-20] MEDS: Ipratropium/Albuterol Sulfate 3 ML AMPUL.NEB INHALATION ×3 (07:00→19:40)
[2022-10-20] MEDS: Sertraline 100 MG Tablet PO (09:28)
[2022-10-20] MEDS: Furosemide 40 MG Tablet PO (09:28)
[2022-10-20] MEDS: Pantoprazole Sodium 40 MG Tablet PO ×2 (09:29→22:05)
[2022-10-20] MEDS: Potassium Chloride Oral Tablet 20 MEQ PO ×2 (09:29→17:04)
[2022-10-20] MEDS: amLODIPine 10 MG Tablet PO (09:29)
[2022-10-20] MEDS: Juven (unflavored) Packet 1 PACKET PO ×2 (09:29→17:09)
[2022-10-20] MEDS: Lisinopril 20 MG Tablet PO (09:29)
[2022-10-20] MEDS: Potassium Chloride Oral Soln 20 MEQ/15 ML UDC 60 MEQ PO (09:30)
--- NOTE | 2022-10-20 09:48 | CASEMGMT ---
Physician feels patient may be ready for discharge tomorrow. SW sent updates notifying [facility] that patient will need a wound vac and IV antibiotics. Wound vac order and prescription for IV antibiotic was also sent. Crystal IBARRA
--- NOTE | 2022-10-20 09:59 | CASEMGMT ---
SW completed a PHQ9 with patient as she had a Stroke. Patient scored a 1 which indicates minimal depression. Patient declined need for counseling resources. Crystal IBARRA
--- NOTE | 2022-10-20 10:05 | PN.ID_ITS ---
Physical Exam Narrative Feeling ok, no fever, no body aches, no n/v. Const alert and no apparent distress General Appearance: cooperative Resp normal air movement and clear to auscultation bilaterally Cardio regular rate and regular rhythm GI soft to palpation, non-tender and non-distended Skin Skin Narrative: sacral dressing in place ID ID: Route of nutrition/ use of supplements: [] Nutritional Intake: [] IV Site: [] Soto Catheter: [] Assessment & Plan Assessment/Plan (1) Sepsis: PLAN: MR-S. hominis bacteremia. Sacral wound with redness/tunneling, wound cx so far with strep and MRSA. Ucx with yeast and MRSA. Sacral wound with ongoing gross purulence and frequent stool contamination. Consulted plastic surgery. Taken to OR 10/15 for I&D of osteo by Dr. Winkler. Consulted surgery, but he is not interested in diverting ostomy. Surg cx with VRE and MRSA, 10/19/22 changed vanc to dapto and continued unasyn. Plan on 6 weeks iv dapto, stop date 11/30/22, with weekly bmp, cbc, LFT, CK, and ESR. Will give 2 weeks po augmentin at discharge. Cdiff (+) but toxin neg. Having melena with recent duodenal ulcer. Low suspicion for active cdiff at this time, but will monitor while on abx here. ID followup in 2-3 weeks. D/w case management associate, wrote rx for labs and abx. Will follow
[2022-10-20] MEDS: Tamsulosin HCl 0.4 MG Capsule PO (13:45)
[2022-10-20] MEDS: 0.9% Saline Lock 10 ML Syringe IV ×2 (13:54→22:18)
--- NOTE | 2022-10-20 15:40 | PN.HOSP_ITS ---
Reason for Visit Reason for Visit: Hypotension/black stools Subjective Subjective No issues overnight. Patient appears to be stable. Still remains on 2 L nasal cannula. I suspect he will need to go on this. ID is finalizing antibiotics and I hoping that he remained stable over the next 24 hours we will be able to discharge him. Risk for readmission is extremely high. Objective Data Objective Data Vital Signs: Vital Signs Temp Pulse Resp BP Pulse Ox O2 Del Method O2 Flow Rate 97.5 F L 85 20 H 113/56 L 95 Room Air 2 10/20/22 09:26 10/20/22 13:00 10/20/22 13:00 10/20/22 09:26 10/20/22 09:26 10/20/22 09:26 10/20/22 08:00 FiO2 40 10/09/22 00:00 Oxygen Flow Rate (L/min) 2 Oxygen Delivery Method Room Air Weight: 70.4 kg Body Mass Index (BMI) 21.7 Intake & Output: Intake and Output for Last 24 Hours 10/18/22 10/19/22 10/20/22 23:59 23:59 23:59 Intake Total 1291 / 1291 896 / 896 112 / 112 Output Total 2200 / 2200 525 / 675 2049 / 2049 Balance -909 / -909 371 / 221 -1938 / -1938 Medical Nutrition Assessment Dietitian: Malnutrition Criteria Met Start: 10/07/22 14:13 Freq: Status: Active Protocol: Document 10/19/22 13:28 RMA (Rec: 10/19/22 13:28 RMA [id number]) Nutrition Malnutrition Evidence of Malnutrition Exists Yes Malnutrition (severe): Chronic Evidenced By Suboptimal Energy Intake ( Severe),Weight Loss (Severe) Intake Problem Increased Nutrient Needs (specify) Etiology protein needs related to skin status Signs/Symptoms as evidenced by pressure injury love heels and R buttock /sacrum; Stage IV Sacral decubitus ulcer Status Active Problem Clinical Problem Acute Disease or Injury Related Malnutrition Etiology severe, acute malnutrition related to inadequate energy intake Signs/Symptoms as evidenced by unintentional wt loss of 19.4#/12% 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 Continue Ensure Plus High Protein 120mL 2x/day w/ medpass. Continue Alfonso BID for wound healing. Will add ensure/fortified pudding BID w/ lunch and dinner as tolerated. Trend weights closely. Lab / Micro Data Result Diagrams: 10/20/22 05:18 10/20/22 05:18 Labs: Laboratory Results - last 24 hr 10/20/22 05:18: WBC 13.2 H, RBC 3.09 L, Hgb 8.8 L, Hct 28.6 L, MCV 92.6, MCH 28.5, MCHC 30.8 L, RDW Std Deviation 54.4 H, RDW Coeff of Luis 16.0 H, Plt Count 460 H, MPV 11.0, Immature Gran % (Auto) 0.800, Neut % (Auto) 81.2 H, Lymph % (Auto) 8.8 L, Hyde % (Auto) 7.2, Eos % (Auto) 1.3, Baso % (Auto) 0.7, Absolute Neuts (auto) 10.8 H, Absolute Lymphs (auto) 1.16, Nucleated RBC % 0 10/20/22 05:18: Sodium 136, Potassium 3.7, Chloride 107, Carbon Dioxide 26.0, Anion Gap 3 L, BUN 25 H, Creatinine 0.60 L, Estim Creat Clear Calc 64.53, Est GFR (MDRD) Af Amer 170, Est GFR (MDRD) Non-Af 141, BUN/Creatinine Ratio 41.9 H, Glucose 118 H, Calcium 8.3 L Micro: Microbiology 10/15/22 Unknown Tissue - Sacral Gram Stain - Final 10/15/22 Unknown Tissue - Sacral Wound Culture - Final Vancomycin Resist. E. faecium Meth. resistant Staph. aureus 10/15/22 Unknown Tissue - Sacral Anaerobic Culture - Final No anaerobic bacteria isolated. 10/15/22 Unknown Bone - Sacral Bone Gram Stain - Final 10/15/22 Unknown Bone - Sacral Bone Wound Culture - Final No growth aerobically. 10/15/22 Unknown Bone - Sacral Bone Anaerobic Culture - Preliminary No growth in 48 hours. 10/16/22 02:07 Stool C. difficile GDH Antigen & Toxins - Final 10/16/22 02:07 Stool C. difficile DNA Amplification - Final 10/10/22 12:55 Blood Culture (Wb) - Left Wrist Blood Culture - Final No growth in 5 days. 10/10/22 12:45 Blood Culture (Wb) - Left Hand Blood Culture - Final No growth in 5 days. 10/07/22 03:45 Blood Culture (Wb) - Left Wrist Blood Culture - Final Staphylococcus species 10/07/22 03:23 Blood Culture (Wb) - Left Wrist Bacteria Detection (PCR) - Final Coag Negative Staph 10/07/22 03:23 Blood Culture (Wb) - Left Wrist Blood Culture - Final Staphylococcus hominis hominis 10/07/22 09:00 Wound - Buttock Gram Stain - Final 10/07/22 09:00 Wound - Buttock Wound Culture - Final Streptococcus pyogenes Meth. resistant Staph. aureus 10/07/22 03:50 Urine, Catheterized Urine Culture - Final Presumptive C albicans Meth. resistant Staph. aureus 10/07/22 08:50 Stool Enteric Bacteriology - Final 10/07/22 08:50 Stool C. difficile GDH Antigen & Toxins - Final 10/07/22 08:50 Stool C. difficile DNA Amplification - Final 10/07/22 08:55 Nasal Secretion SARS-CoV-2 & FLU Antigen (Rapid) - Final 10/07/22 03:15 Stool Stool Occult Blood (VIMAL) - Final Occult Blood Positive Physical Exam Const alert and no apparent distress Constitutional Narrative: Chronically ill-appearing older, white male, who appears much older than stated age, sitting up in a chair at the bedside eating breakfast and watching television, nursing service administrator at bedside, patient appears comfortable and nontoxic HEENT head/scalp atraumatic and moist oral mucous membranes HEENT Narrative: Dentition is poor, Mallampati is 1-2, no thrush Head and Scalp: normocephalic Resp normal respiratory effort, no retractions, no use of accessory muscles and No clear to auscultation bilaterally Resp Narrative: diffusely diminished with few crackles with deep inspiration at right base- suspect atelectasis Auscultation: crackles; Negative for rhonchi or wheezes Cardio regular rate, regular rhythm, S1 normal heart sound, S2 normal heart sound and no murmurs GI normal to inspection, nondistended, normoactive bowel sounds, soft to palpation and non-tender Extremity Extremity Narrative: Decreased pedal pulses bilaterally that is chronic in nature with decreased cap refill, no cyanosis or clubbing, no edema Skin Skin Narrative: Bilateral lower extremity wound dressings in place and are clean dry and intact, images reviewed Neuro CN's II-XII intact bilaterally, moves all extremities and no focal motor deficits Neuro Narrative: Significant generalized weakness Speech: speech normal Psych Psych Narrative: Affect is mildly flat however eye contact is good and mood seems stable Assessment & Plan Assessment/Plan (1) Anemia: (2) Hypoxia: (3) Sepsis: (4) Decubitus ulcer of sacral region, unstageable: (5) MRSA (methicillin resistant Staphylococcus aureus) infection: (6) Bacteremia: (7) Hypokalemia: (8) Severe malnutrition: (9) NSTEMI, initial episode of care: PLAN: Plan Sepsis secondary to staph hominis bacteremia -Sepsis has resolved -Antibiotics per infectious disease -Recommendation for daptomycin via PICC line with a stop date of 11/30/2022 and weekly BMP, CBC, LFTs, CK, and ESR and 2 weeks of oral Augmentin at discharge -Will need outpatient ID follow-up in the next 2 to 3 weeks. Acute hypoxia -Patient on room air at baseline -Currently requiring 2 L nasal cannula -Oxygen as able -Concern is for recurrent aspiration -Speech therapy following -may need discharged on oxygen therapy Dysphagia -Speech therapy is following -Continue modified diet as ordered Recent GI bleed secondary to duodenal ulcer -Hemoglobin is currently stable -Did require 5 units transfusion during hospitalization at [facility] -EGD performed and showed duodenal ulcer that required clipping?while at [facility] -Current bleeding admitted here earlier this hospitalization ?-EGD on 10/08/2022 whilst here which showed severe erosive esophagitis and benign-appearing esophageal stenosis which was dilated as well as an oozing duodenal ulcer with pigmented material which was injected and treated with heater probe. -Continue Protonix 40 mg p.o. 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 -X-ray of the foot shows mild soft tissue swelling with no daylin bone destructive changes -Appear to be vascular in nature -PVRs show severe bilateral lower extremity vascular disease with right TAMIE at 0.43 and left TAMIE at 0.33 -Lower extremity CT performed and shows significant calcification however final read is pending -Vascular surgery has evaluated him and previous admissions and needs outpatient follow-up -Continue broad-spectrum antibiotics -Wound care is following -Concerned that in the future he may need amputation for these and I did address this with his brother that previous admission Severe malnutrition -Continue supplements as able with dysphagia -Dietitian following Pressure ulcer-unstageable -MRSA and VRE -Antibiotics per infectious disease -Status postdebridement in the OR by plastic surgery -Wound VAC per general surgery -Antibiotics to continue per infectious disease--> vancomycin was transitioned to daptomycin with VRE -Continue wound care -Appreciate plastic surgery involvement Hypokalemia -Resolved NSTEMI -Type II -Due to demand ischemia with hypoxia -No chest pain -Echocardiogram showed EF of 40% with moderate global left systolic dysfunction and moderate right ventricular systolic dysfunction Acute urinary retention -Patient with Soto catheter from facility -Was placed at [facility] for severe urinary retention -Continue Flomax -Recommend outpatient follow-up with urology History of stroke/bilateral carotid stenosis/HTN/HPL -Continue statin -Aspirin on hold due to recent GI bleed -Continue diuresis -Continue lisinopril 20 mg daily -Continue amlodipine 10 mg daily Severe peripheral vascular disease -Aspirin/Plavix are on hold secondary to recent severe GI bleed -Continue outpatient vascular follow-up -right TAMIE at 0.43 and left TAMIE at 0.33 BPH -Restart home Flomax Anxiety/depression -Continue sertraline History of alcohol abuse -Patient quit drinking following his stroke -Encourage continued sobriety Tobacco abuse -Encouraged cessation -Nicotine replacement available if desired DVT prophylaxis -SCDs -Chemoprophylaxis deferred due to recent GI bleeding CODE STATUS -Full code -Previously been DNR CCA which is probably more appropriate with his chronic illnesses as I suspect cardiopulmonary arrest would result in his demise or more extreme debility that he is currently suffering from Charges/Coding Visit Charges Inpatient E&M: 75240 Subs Hosp L2
[2022-10-20] MEDS: Ensure Plus High Protein 120 ML LIQUID PO (22:04)
[2022-10-20] MEDS: Atorvastatin Calcium 40 MG Tablet PO (22:05)
[2022-10-21] VITALS (7 sets, daily range): BP systolic 97–125; BP diastolic 56–70; PULSE 79–106; RESP 16–18; TEMP 36.6; O2SAT 96–98; BMI 20.8
--- NOTE | 2022-10-21 00:11 | NURSING ---
This RN is assuming care of this patient at this time.
--- NOTE | 2022-10-21 04:30 | NURSING ---
Pt estrada catheter bag was leaking d/t a hole. This RN changed the estrada catheter bag and tubing. Labeled on bag, tubing is patent, kink free, and draining. New stat lock applied as well.
[2022-10-21 05:19] LABS: Absolute Lymphocyte Count 1.24 X10^3/uL (0.83-4.51); Absolute Neutrophil Count 10.3 X10^3/uL (2.0-7.7); Basophil% 0.8 % (0-1); Eosinophil# 0.24 X10^3/uL; Eosinophils% 1.9 % (0-5); Hemoglobin 8.8 g/dL (13.0-16.5); Lymphocyte # 1.24 X10^3/ul (0.83-4.51); Lymphocyte % 9.6 % (19-41); Mean Corp Hgb Conc 31.4 g/dL (32-36); Mean Corpuscular Hgb 28.7 pg (27.0-32.0); Mean Corpuscular Volume 91.2 fL (80-94); Mean Platelet Vol. 11.1 fl (6.2-12.0); Monocyte# 0.91 X10^3/uL; Monocyte% 7.1 % (0-10); NRBC Flagged by Analyzer 0 % (0-5); Neutrophil # 10.33 X10^3/uL (2.7-7.7); Platelet Count 464 K/mm3 (150-450); RBC Distribution Width CV 15.8 % (11.6-14.6); RBC Distribution Width SD 52.9 fl (35.1-43.9); Red Blood Count 3.07 M/mm3 (4.6-6.2); White Blood Count 12.9 K/mm3 (4.4-11.0)
[2022-10-21 05:42] LABS: AST(SGOT) 42 U/L (15-37); Alanine Aminotransfer ALT/SGPT 48 U/L (16-61); Albumin, Serum 1.7 g/dL (3.2-5.0); Alkaline Phosphatase 96 U/L (45-117); Anion Gap 4 (5-15); BUN 24 mg/dL (7-18); BUN/Creat Ratio 39.6 RATIO (10-20); Bilirubin, Direct 0.13 mg/dL (0.00-0.30); Calcium,Total 8.4 mg/dL (8.5-10.1); Chloride 103 mmol/L (98-107); Creatinine, Serum 0.61 mg/dL (0.70-1.30); EST Glomerular Filtration Rate 138 mL/min (>60); Est Glom Filt Rate - Afr Amer 167 mL/min (>60); Estimated Creatinine Clearance 61.88 ml/min; Globulin 4.6 g/dL (2.2-4.2); Glucose 119 mg/dL (74-106); Potassium 3.9 mmol/L (3.5-5.1); Protein, Total 6.3 g/dL (6.4-8.2); Sodium Level 134 mmol/L (136-145)
[2022-10-21 05:50] LABS: CPK Total, Creatine Kinase 16 U/L (39-308)
[2022-10-21] MEDS: Tamsulosin HCl 0.4 MG Capsule PO (10:01)
[2022-10-21] MEDS: Sertraline 100 MG Tablet PO (10:01)
[2022-10-21] MEDS: Potassium Chloride Oral Tablet 20 MEQ PO ×2 (10:01→18:14)
[2022-10-21] MEDS: Juven (unflavored) Packet 1 PACKET PO ×2 (10:01→18:18)
[2022-10-21] MEDS: Ensure Plus High Protein 120 ML LIQUID PO (10:01)
[2022-10-21] MEDS: Furosemide 40 MG Tablet PO (10:01)
[2022-10-21] MEDS: Pantoprazole Sodium 40 MG Tablet PO (10:01)
--- NOTE | 2022-10-21 14:25 | TREXTCAR_ITS ---
Diet Diet Order/Speech Therapy: 10/15/22 17:41 Diet: Regular - General Food consistency:: Soft & Bite Sized Liquid Consistency:: Regular/Thin Type of Dietary Supplement:: Ensure Pud 2x w/ L & D Is pt able to select menu?: No Diet Comments: No straws, Direct Supervision, family ok to supervise, meds crushed in Routine Orders/Code Status Routine Lab Work: CBC and BMP Code Status: Full Code Wound(s) right upper buttock/sacrum: Wound Type: Pressure Injury Dressing Change: Dakins moistened gauze right mid buttock: Wound Type: Pressure Injury Dressing Change: AntiMicrobial (Aquacel AG, etc) right lateral foot: Wound Type: dry black eschar (PVD) Dressing Change: betadine with dry dressing right lateral lower leg: Wound Type: dry black eschar (PVD) Dressing Change: betadine with dry dressing right lateral ankle: Wound Type: dry black eschar (PVD) Dressing Change: betadine with dry dressing right dorsal foot: Wound Type: dry black eschar (PVD) Dressing Change: betadine with dry dressing right heel: Wound Type: Pressure Injury Dressing Change: betadine with well padded dressing left dorsal foot: Wound Type: dry black eschar (PVD) Dressing Change: betadine with dry dressing toes of left foot: Wound Type: dry black eschar Dressing Change: betadine with dry dressings left heel: Wound Type: Pressure Injury Dressing Change: betadine with well padded dressing bilateral feet: Wound Type: scattered areas of dry black eschar Dressing Change: betadine with dry dressings left mid buttock: Wound Type: Pressure Injury Dressing Change: dry dressing left sacrum/upper buttock: Wound Type: Pressure Injury Dressing Change: Dakins moistened gauze Therapies Physical Therapy: Eval and Treat Occupational Therapy: Eval and Treat Problem/Diagnosis (1) Anemia: Status: Acute Code(s): D64.9 - Anemia, unspecified (2) Hypoxia: Status: Acute Code(s): R09.02 - Hypoxemia (3) Sepsis: Status: Acute Code(s): A41.9 - Sepsis, unspecified organism (4) Decubitus ulcer of sacral region, unstageable: Status: Acute Code(s): L89.150 - Pressure ulcer of sacral region, unstageable (5) MRSA (methicillin resistant Staphylococcus aureus) infection: Status: Acute Code(s): A49.02 - Methicillin resistant Staphylococcus aureus infection, unspecified site (6) Bacteremia: Status: Acute Code(s): R78.81 - Bacteremia (7) Hypokalemia: Status: Acute Code(s): E87.6 - Hypokalemia (8) Severe malnutrition: Status: Acute Code(s): E43 - Unspecified severe protein-calorie malnutrition (9) NSTEMI, initial episode of care: Status: Acute Code(s): I21.4 - Non-ST elevation (NSTEMI) myocardial infarction Allergies/Procedures Done in Hospital Allergies No Known Allergies Allergy (Verified 10/07/22 03:00) Procedures: EGD Type of Care/Length of Stay Estimated LOS: More Than 30 Days Type of Care Needed: Skilled Rehab Potential: Good Prognosis: Good Additional Orders/Day of Discharge Day of Discharge: 10/21/22 Dietary and Speech Recommendations Dietitian Recommendations/Changes: Continue regular diet with texture /consistency per DELIVERY REPRESENTATIVE. Continue Ensure Plus High Protein 120mL 2x/day w/ medpass. Continue Alfonso BID for wound healing. Will add ensure/fortified pudding BID w/ lunch and dinner as tolerated. Trend weights closely. Discharge Plan Admission Admit Date/Time: 10/07/22 08:20 Primary Reason for Your Visit: Hypotension/melena Attending Provider: Amadou Robledo Primary Care Provider: Edmundo Hahn Consulting Providers: Ramesh Ventura ; Cesario Major ; Dayton Toscano Lee Ann ; Palmer Doss ; Bambi Bah NP ; Marleen Funk ; Leland Winkler ; Brendon Rodriguez ; Senia De Luna ; Luanne Sullivan Discharge Orders/Prescriptions Prescriptions: New daptomycin 500 mg recon soln 500 mg IV DAILY Qty: 40 0RF Rx Instructions: administer over 30 mins stop date 11/30/22 dx: sacral osteo weekly bmp, cbc, CK, LFT, and esr. fax to [phone] amoxicillin-pot clavulanate 875-125 mg tablet 1 tab PO BID Qty: 30 0RF Continued cholecalciferol (vitamin D3) 50 mcg (2,000 unit) capsule 50 mcg PO DAILY multivitamin,tx-minerals Tablet 1 tab PO DAILY atorvastatin 40 MG tablet 40 mg PO QHS Qty: 30 0RF amlodipine 10 MG tablet 10 mg PO DAILY Qty: 30 0RF sertraline 100 mg tablet 100 mg PO DAILY tamsulosin 0.4 mg Capsule 0.4 mg PO DAILY pantoprazole 40 mg tablet,delayed release (DR/EC) 40 mg PO BID lisinopril 20 MG tablet 20 mg PO QHS ipratropium-albuterol 0.5 mg-3 mg(2.5 mg base)/3 mL Solution For Nebulization 3 ml inhalation Q4HWA.RT Qty: 0 0RF albuterol sulfate 2.5 mg /3 mL (0.083 %) Solution For Nebulization 2.5 mg inhalation Q2H PRN PRN (Reason: Dyspnea, wheezing) Qty: 0 0RF ascorbic acid (vitamin C) 500 mg Tablet 500 mg PO TIDCM Qty: 0 0RF ferrous sulfate 300 mg (60 mg iron)/5 mL Liquid 300 mg PO TIDCM Qty: 0 0RF Mucus Relief ER 1,200 mg Tablet Extended Release 12hr 1,200 mg PO BID Qty: 0 0RF Alfonso (with collagen) 7-7-1.5 gram Powder In Packet 1 packet PO BIDCM Qty: 0 0RF bumetanide 0.5 mg tablet 0.5 mg PO BID Qty: 60 0RF Discontinued fluconazole 100 mg tablet 100 mg PO DAILY Rx Instructions: x 7 days Referrals / Follow Up: Shankar Solis MD [Med Staff - Active Staff] - Within 1 Month Hayden Zaman MD [Med Staff - Active Staff] - Within 2 Weeks Leland Winkler MD [Med Staff - Active Staff] - Within 1 Week Edmundo Hahn MD [Primary Care Provider] - Within 1 Week Ramesh Ventura MD [Med Staff - Active Staff] - Within 2 Weeks Disposition Disposition (needs filled in before D/C Order can be placed): [facility] Facility
--- NOTE | 2022-10-21 15:40 | CASEMGMT ---
Discharge Planning Message was left on sisters with pickup time. Nina Ramon
--- NOTE | 2022-10-21 15:47 | CASEMGMT ---
Discharge Planning Transfer orders, signed med list, Covid results, and pickup time sent to [facility] [place]
--- NOTE | 2022-10-21 15:58 | CASEMGMT ---
LETTY called patient's brother ED and let him know patient will be discharged back to [facility] today and will get picked up at 630. Crystal IBARRA
--- NOTE | 2022-10-21 17:51 | PCM.DC.SUM ---
Providers Date of Admission: 10/07/22 Primary Care Physician: Dr. Edmundo Hahn MD Consultations 10/07/22 08:46 Consult: Gastroenterology Routine Consulting Provider: Juve Gastroenterkassandra Reason for Consult: GIB EMERGENT Consult: No MD Notified: Yes Date Notified: 10/07/22 Time Notified: 08:25 Method of Notification: ED Physician Initiated Consult: Enterostomal Nurse / Pulmonary Medicine Routine Consulting Provider: [facility] Reason for Consult: hypotension, concern for GIB, possible sepsis EMERGENT Consult: No MD Notified: Yes Date Notified: 10/07/22 Time Notified: 08:24 Method of Notification: Verbal Consult: Onc/Wound/commercial analyst Routine Comment: Reason for Consult:: foot wounds and ulcer seen when turned 10/08/22 06:59 Consult: Infectious Disease Routine Consulting Provider: Ramesh Ventura Reason for Consult: C. difficile colonization - ?PO vanc EMERGENT Consult: No MD Notified: Yes Date Notified: 10/08/22 Time Notified: 07:53 Method of Notification: Text 10/12/22 14:42 Consult: Plastic Surgery Routine Consulting Provider: Leland Winkler Reason for Consult: infected sacral wound EMERGENT Consult: No MD Notified: Yes Date Notified: 10/12/22 Time Notified: 14:59 Method of Notification: Text Method of Consult:: In-Person 10/14/22 15:21 Consult: General Surgery Routine Consulting Provider: Brendon Rodriguez Reason for Consult: eval for diverting ostomy. Infected sacral ulcer. EMERGENT Consult: No MD Notified: Yes Date Notified: 10/14/22 Time Notified: 15:25 Method of Notification: Text Reason For Visit: GI BLEED, NSTEMI, HYPOTENSION, SIRS Diagnosis Discharge Diagnosis (1) Anemia: Status: Acute Code(s): D64.9 - Anemia, unspecified (2) Hypoxia: Status: Acute Code(s): R09.02 - Hypoxemia (3) Sepsis: Status: Acute Code(s): A41.9 - Sepsis, unspecified organism (4) Decubitus ulcer of sacral region, unstageable: Status: Acute Code(s): L89.150 - Pressure ulcer of sacral region, unstageable (5) MRSA (methicillin resistant Staphylococcus aureus) infection: Status: Acute Code(s): A49.02 - Methicillin resistant Staphylococcus aureus infection, unspecified site (6) Bacteremia: Status: Acute Code(s): R78.81 - Bacteremia (7) Hypokalemia: Status: Acute Code(s): E87.6 - Hypokalemia (8) Severe malnutrition: Status: Acute Code(s): E43 - Unspecified severe protein-calorie malnutrition (9) NSTEMI, initial episode of care: Status: Acute Code(s): I21.4 - Non-ST elevation (NSTEMI) myocardial infarction Medications at Discharge Home Medications amlodipine 10 mg tablet 10 mg PO DAILY #30 tabs 08/19/20 atorvastatin 40 mg tablet 40 mg PO QHS #30 tabs 08/19/20 lisinopril 20 mg tablet 20 mg PO QHS 09/07/22 pantoprazole 40 mg tablet,delayed release 40 mg PO BID 09/07/22 sertraline 100 mg tablet 100 mg PO DAILY 09/07/22 tamsulosin 0.4 mg capsule 0.4 mg PO DAILY 09/07/22 albuterol sulfate 2.5 mg/3 mL (0.083 %) solution for nebulization 2.5 mg (3 mL) inhalation Q2H PRN PRN Dyspnea, wheezing #0 mL 09/10/22 arginine 7 gram-glutam 7 gram-CaHMB 1.5 [id number] oral pwd pkt (Alfonso (with collagen)) 1 packet PO BIDCM #0 ea 09/10/22 ascorbic acid (vitamin C) 500 mg tablet 500 mg PO TIDCM #0 tabs 09/10/22 bumetanide 0.5 mg tablet 0.5 mg PO BID #60 tabs 09/10/22 ferrous sulfate 300 mg (60 mg iron)/5 mL oral liquid 300 mg (5 mL) PO TIDCM #0 mL 09/10/22 guaifenesin 1,200 mg tablet, extended release 12 hr (Mucus Relief ER) 1,200 mg PO BID #0 tabs 09/10/22 ipratropium 0.5 mg-albuterol 3 mg (2.5 mg base)/3 mL nebulization soln 3 ml inhalation Q4HWA.RT #0 mL 09/10/22 cholecalciferol (vitamin D3) 50 mcg (2,000 unit) capsule 50 mcg PO DAILY 09/22/22 multivitamin,tx-minerals 1 tab PO DAILY 09/22/22 amoxicillin 875 mg-potassium clavulanate 125 mg tablet 1 tab PO BID #30 tabs 10/20/22 daptomycin 500 mg intravenous solution 500 mg IV DAILY #40 ea 10/20/22 Hospital Course Operations None Procedures EGD and - (Wound debridement) Summary of Care Provided Minutes Spent on Discharge: 40 Hospital Course: Per HPI: NIKOLAS ADAMS, is a 72 M w/ hx of PVD w/ LE ulcerations, HTN, CVA 08/01/20 d/c'd from [place] 09/05 after admit w/ hemorrhagic shock 2/2 duodenal ulcer req 5uprbc and clips with subsequent d/c and admit to [facility] 09/07 for dyspnea. Dx w/ sepsis secondary to aspiration PNA and completed a course of abx, cultures were negative at the time. Additionally d/t LE ulcers he had vascular w/u and surgery was recommended on outpt basis given recent severe GIB.? He was discharged to SNF for rehab and represented to [facility] 10/07/22 after he was found to have a giant black stool and was diaphoretic and hypotensive at half-way facility.? He was sent to [facility].? Blood pressure in ED variable, verbal report that SBP was in the 80s on arrival and he has had some intermittent low-grade tachycardia he was given sepsis protocol fluids though not diagnosis sepsis do not know source however white blood cell count was 28.6 in the ED and did have left shift with lactic acid of 2.3 and troponin 166 that trended to 261.? Given blood pressure was still marginal after fluids there is concern that blood loss may be contributing and that CBC had not yet reflected that so he was given 2 units packed red blood cells.? Hospitalist consulted for admission to ICU.? Evaluated patient at bedside and he was resting comfortably.? Woke up and denied having any complaints but poor historian and had perez negative ROS. Hospital Course: 1. 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 He was found to be septic and had bilateral foot wounds and unstageable pressure ulcers due to vascular disease for VRE and MRSA, his bacteremia was due to Staph hominis. Infectious disease was consulted and they recommended ultimately discharge on daptomycin and Augmentin. Given his recent severe GI bleeding, despite the fact that he has significant vascular disease, will hold his aspirin and Plavix, would recommend outpatient follow-up on discharge with vascular surgery. He did have ABIs which showed severe disease on the right with a 0.43 and on the left with a 0.33 and a lower extremity CT demonstrated significant calcification. Given his hypoxia and his dysphagia, there is concern for recurrent aspiration he will likely need to be discharged on oxygen to SNF. Would recommend continued speech therapy., He did have elevated troponin without chest pain secondary to hypoxia from demand ischemia. Echocardiogram demonstrated EF of 40% with moderate global left systolic dysfunction and moderate right ventricular systolic dysfunction. Would recommend outpatient follow-up. 2. Upper GI bleed?he was recently at [place] where he had to have 5 units transfused secondary to GI bleeding at that time it demonstrated duodenal ulcer that required clipping. He had an EGD here at this institution on 10/08/2022 which showed severe erosive esophagitis and benign-appearing esophageal stenosis which was dilated, there is also an oozing duodenal ulcer which was treated. We will continue with twice daily PPI 3. Acute urinary retention?this was an issue at [place] and he had a Soto placed. We will continue with the Soto as well as his Flomax and recommend outpatient follow-up with urology 4. Severe malnutrition, history of stroke, bilateral carotid artery stenosis, hypertension, hyperlipidemia, anxiety, depression, history of alcohol use are all chronic medical conditions which complicate his care. His home medications were continued where appropriate Physical Exam Narrative General: Alert, Oriented x3, Cooperative, No apparent distress HEENT: Atraumatic, PERRLA, EOMI, Normocephalic Oral: Moist Mucosa Neck: Supple, No JVD Lungs: Diminished, Normal air movement, No rhonchi, No wheeze, No rales Cardiovascular: Regular rate, Regular Rhythm, Normal S1, Normal S2, No murmurs Abdomen: Soft, Non Tender, Non-Distended, No Hepato-splenomegaly Extremities: No edema, Capillary Refill Less than 3 Seconds Skin: Lower extremity wound dressings in place Musculoskeletal: No Tenderness to Palpation of Joints or Extremities Neurological: Cranial nerves II-XII grossly intact, Motor Exam 5/5 strength throughout, Sensory exam intact to light touch and pain Psych/Mental Status: Normal Affect, Appropriate Medical Records Data Medical Nutrition Assessment Dietitian: Malnutrition Criteria Met Start: 10/07/22 14:13 Freq: Status: Active Protocol: Document 10/19/22 13:28 RMA (Rec: 10/19/22 13:28 RMA [id number]) Nutrition Malnutrition Evidence of Malnutrition Exists Yes Malnutrition (severe): Chronic Evidenced By Suboptimal Energy Intake ( Severe),Weight Loss (Severe) Intake Problem Increased Nutrient Needs (specify) Etiology protein needs related to skin status Signs/Symptoms as evidenced by pressure injury love heels and R buttock /sacrum; Stage IV Sacral decubitus ulcer Status Active Problem Clinical Problem Acute Disease or Injury Related Malnutrition Etiology severe, acute malnutrition related to inadequate energy intake Signs/Symptoms as evidenced by unintentional wt 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 Continue Ensure Plus High Protein 120mL 2x/day w/ medpass. Continue Alfonso BID for wound healing. Will add ensure/fortified pudding BID w/ lunch and dinner as tolerated. Trend weights closely. Weight / BMI Weight Weight: 148 lb 12.992 oz Body Mass Index (BMI) 20.8 ABG / Lab / Microbiology Data Result Diagrams: 10/21/22 04:29 10/21/22 04:29 Laboratory: Laboratory Results - last 24 hr 10/21/22 04:29: WBC 12.9 H, RBC 3.07 L, Hgb 8.8 L, Hct 28.0 L, MCV 91.2, MCH 28.7, MCHC 31.4 L, RDW Std Deviation 52.9 H, RDW Coeff of Luis 15.8 H, Plt Count 464 H, MPV 11.1, Immature Gran % (Auto) 0.600, Neut % (Auto) 80.0 H, Lymph % (Auto) 9.6 L, [place] % (Auto) 7.1, Eos % (Auto) 1.9, Baso % (Auto) 0.8, Absolute Neuts (auto) 10.3 H, Absolute Lymphs (auto) 1.24, Nucleated RBC % 0 10/21/22 04:29: Sodium 134 L, Potassium 3.9, Chloride 103, Carbon Dioxide 27.0, Anion Gap 4 L, BUN 24 H, Creatinine 0.61 L, Estim Creat Clear Calc 61.88, Est GFR (MDRD) Af Amer 167, Est GFR (MDRD) Non-Af 138, BUN/Creatinine Ratio 39.6 H, Glucose 119 H, Calcium 8.4 L, Total Bilirubin 0.30, Direct Bilirubin 0.13, AST 42 H, ALT 48, Alkaline Phosphatase 96, Total Protein 6.3 L, Albumin 1.7 L, Globulin 4.6 H 10/21/22 04:29: Total Creatine Kinase 16 L Microbiology: Microbiology 10/15/22 Unknown Bone - Sacral Bone Gram Stain - Final 10/15/22 Unknown Bone - Sacral Bone Wound Culture - Final No growth aerobically. 10/15/22 Unknown Bone - Sacral Bone Anaerobic Culture - Final No growth in 5 days. 10/15/22 Unknown Tissue - Sacral Gram Stain - Final 10/15/22 Unknown Tissue - Sacral Wound Culture - Final Vancomycin Resist. E. faecium Meth. resistant Staph. aureus 10/15/22 Unknown Tissue - Sacral Anaerobic Culture - Final No anaerobic bacteria isolated. 10/16/22 02:07 Stool C. difficile GDH Antigen & Toxins - Final 10/16/22 02:07 Stool C. difficile DNA Amplification - Final 10/10/22 12:55 Blood Culture (Wb) - Left Wrist Blood Culture - Final No growth in 5 days. 10/10/22 12:45 Blood Culture (Wb) - Left Hand Blood Culture - Final No growth in 5 days. 10/07/22 03:45 Blood Culture (Wb) - Left Wrist Blood Culture - Final Staphylococcus species 10/07/22 03:23 Blood Culture (Wb) - Left Wrist Bacteria Detection (PCR) - Final Coag Negative Staph 10/07/22 03:23 Blood Culture (Wb) - Left Wrist Blood Culture - Final Staphylococcus hominis hominis 10/07/22 09:00 Wound - Buttock Gram Stain - Final 10/07/22 09:00 Wound - Buttock Wound Culture - Final Streptococcus pyogenes Meth. resistant Staph. aureus 10/07/22 03:50 Urine, Catheterized Urine Culture - Final Presumptive C albicans Meth. resistant Staph. aureus 10/07/22 08:50 Stool Enteric Bacteriology - Final 10/07/22 08:50 Stool C. difficile GDH Antigen & Toxins - Final 10/07/22 08:50 Stool C. difficile DNA Amplification - Final 10/07/22 08:55 Nasal Secretion SARS-CoV-2 & FLU Antigen (Rapid) - Final 10/07/22 03:15 Stool Stool Occult Blood (VIMAL) - Final Occult Blood Positive Meaningful Use Info Meaningful Use Diagnoses (Choose all that apply): None applicable Discharge Plan Admission Admit Date/Time: 10/07/22 08:20 Primary Reason for Your Visit: Hypotension/melena Attending Provider: Amadou Robledo Primary Care Provider: Edmundo Hhan Consulting Providers: Ramesh Ventura ; Cesario Major ; Dayton Toscano ; Nate Quiroga ; Palmer Doss ; Bambi Bah NP ; Marleen Funk ; Leland Winkler ; Brendon Rodriguez ; Senia De Luna ; Luanne Sullivan Discharge Orders/Prescriptions Prescriptions: New daptomycin 500 mg recon soln 500 mg IV DAILY Qty: 40 0RF Rx Instructions: administer over 30 mins stop date 11/30/22 dx: sacral osteo weekly bmp, cbc, CK, LFT, and esr. fax to [phone] amoxicillin-pot clavulanate 875-125 mg tablet 1 tab PO BID Qty: 30 0RF Continued cholecalciferol (vitamin D3) 50 mcg (2,000 unit) capsule 50 mcg PO DAILY multivitamin,tx-minerals Tablet 1 tab PO DAILY atorvastatin 40 MG tablet 40 mg PO QHS Qty: 30 0RF amlodipine 10 MG tablet 10 mg PO DAILY Qty: 30 0RF sertraline 100 mg tablet 100 mg PO DAILY tamsulosin 0.4 mg Capsule 0.4 mg PO DAILY pantoprazole 40 mg tablet,delayed release (DR/EC) 40 mg PO BID lisinopril 20 MG tablet 20 mg PO QHS ipratropium-albuterol 0.5 mg-3 mg(2.5 mg base)/3 mL Solution For Nebulization 3 ml inhalation Q4HWA.RT Qty: 0 0RF albuterol sulfate 2.5 mg /3 mL (0.083 %) Solution For Nebulization 2.5 mg inhalation Q2H PRN PRN (Reason: Dyspnea, wheezing) Qty: 0 0RF ascorbic acid (vitamin C) 500 mg Tablet 500 mg PO TIDCM Qty: 0 0RF ferrous sulfate 300 mg (60 mg iron)/5 mL Liquid 300 mg PO TIDCM Qty: 0 0RF Mucus Relief ER 1,200 mg Tablet Extended Release 12hr 1,200 mg PO BID Qty: 0 0RF Alfonso (with collagen) 7-7-1.5 gram Powder In Packet 1 packet PO BIDCM Qty: 0 0RF bumetanide 0.5 mg tablet 0.5 mg PO BID Qty: 60 0RF Discontinued fluconazole 100 mg tablet 100 mg PO DAILY Rx Instructions: x 7 days Referrals / Follow Up: Shankar Solis MD [Med Staff - Active Staff] - Within 1 Month Hayden Zaman MD [Med Staff - Active Staff] - Within 2 Weeks Leland Winkler MD [Med Staff - Active Staff] - Within 1 Week Edmundo Hahn MD [Primary Care Provider] - Within 1 Week Ramesh Ventura MD [Med Staff - Active Staff] - Within 2 Weeks Disposition Disposition (needs filled in before D/C Order can be placed): Care Home Facility Charges/Coding Visit Charges Inpatient E&M: 06875 Disch Hosp >30min
[2022-10-21] MEDS: Ipratropium/Albuterol Sulfate 3 ML AMPUL.NEB INHALATION (19:13)
== END 2022-10-21 21:20 | disposition skilled nursing facility (03) | DRG 853 ==
LOC: ED 07:12 → ICU 07:55 → PCU 10-12 07:25
PROVIDERS: Anesthesiology; Hospitalist; Internal Medicine; Internal Medicine Critical Care Medicine; Internal Medicine Gastroenterology; Internal Medicine Infectious Disease; Student in an Organized Health Care Education/Training Program; Surgery; Admitting Provider Internal Medicine; Emergency Provider Student in an Organized Health Care Education/Training Program; PCP Family Medicine; Referring Provider Internal Medicine; Visit Provider Family Medicine
PROC: 0DJ08ZZ Inspection of Upper Intestinal Tract, Via Natural or Artificial Opening Endoscopic (ICD-10-PCS; CPT 43235; principal; 2022-10-08 11:25)
PROC: 0QB10ZZ Excision of Sacrum, Open Approach (ICD-10-PCS; CPT 15999; principal; 2022-10-15 14:45)
DX: A41.1 Sepsis due to other specified staphylococcus (principal); E43 Unspecified severe protein-calorie malnutrition; J96.01 Acute respiratory failure with hypoxia; J69.0 Pneumonitis due to inhalation of food and vomit; K22.11 Ulcer of esophagus with bleeding; L89.154 Pressure ulcer of sacral region, stage 4; K26.4 Chronic or unspecified duodenal ulcer with hemorrhage; I21.A1 Myocardial infarction type 2; I96 Gangrene, not elsewhere classified; I50.22 Chronic systolic (congestive) heart failure; M46.28 Osteomyelitis of vertebra, sacral and sacrococcygeal region; D62 Acute posthemorrhagic anemia; Z16.21 Resistance to vancomycin; I11.0 Hypertensive heart disease with heart failure; L97.513 Non-pressure chronic ulcer of other part of right foot with necrosis of muscle; I70.235 Atherosclerosis of native arteries of right leg with ulceration of other part of foot; I95.9 Hypotension, unspecified; E87.6 Hypokalemia; E83.42 Hypomagnesemia; E78.5 Hyperlipidemia, unspecified; K44.9 Diaphragmatic hernia without obstruction or gangrene; K22.2 Esophageal obstruction; F41.9 Anxiety disorder, unspecified; F17.210 Nicotine dependence, cigarettes, uncomplicated; Z68.21 Body mass index [BMI] 21.0-21.9, adult; B95.2 Enterococcus as the cause of diseases classified elsewhere; N40.1 Benign prostatic hyperplasia with lower urinary tract symptoms; R33.8 Other retention of urine; R79.1 Abnormal coagulation profile; Z86.73 Personal history of transient ischemic attack (TIA), and cerebral infarction without residual deficits; R13.10 Dysphagia, unspecified; B37.9 Candidiasis, unspecified; F32.A Depression, unspecified; Z66 Do not resuscitate; Z20.822 Contact with and (suspected) exposure to COVID-19
CPT/HCPCS: 36415; 36569; 71045; 73630; 74177; 80048; 80053; 80076; 80202; 81001; 82274; 82550; 82728; 83540; 83550; 83605; 83735; 84134; 84145; 84484; 85018; 85025; 85045; 85610; 85730; 86850; 86900; 86901; 86920; 87040; 87070; 87075; 87077; 87086; 87088; 87102; 87149; 87176; 87186; 87205; 87206; 87428; 87493; 87506; 87640; 88304; 88305; 88307; 88311; 92526; 92610; 93005; 94002; 94640; 94668; 97110; 97116; 97162; 97166; 97530; 97535; 97802; 99285; J0878; J7030; J7040; J7050; P9016; Q9967; A4216; J0295; J1940; J2405; J3490

== ENCOUNTER 2022-11-03 08:28 | Inpatient (IN) | payer MEDICARE, OTHER, SELFPAY ==
[2022-11-03] VITALS (11 sets, daily range): BP systolic 84–127; BP diastolic 59–79; PULSE 88–114; RESP 16–20; TEMP 35.9–36.6; O2SAT 94–99; BMI 21.1; BMI 19.7
--- NOTE | 2022-11-03 08:33 | EX.ED.DYSGE1 ---
HPI History of Present Illness Chief Complaint: General Illness [facility] Medical History (Updated 11/03/22 @ 15:[address] Kofi Rodriguez, DO) Anxiety and depression Atherosclerosis of right lower extremity with ulceration Bilateral carotid artery stenosis Cervical spondylosis Cervical stenosis of spinal canal Cognitive dysfunction Decubitus ulcer, stage 4 with infection Dependent on walker for ambulation Dysphagia Essential (primary) hypertension Glucose intolerance (impaired glucose tolerance) History of alcohol abuse History of stroke (08/01/20) Hyperlipidemia Hyponatremia Mass of parotid gland MRSA (methicillin resistant Staphylococcus aureus) infection Non-pressure chronic ulcer of other part of right foot with necrosis of muscle Osteomyelitis, chronic, pelvis or thigh Osteomyelitis, pelvis Peripheral vascular disease, unspecified Peripheral vascular occlusive disease Presbycusis of both ears Severe malnutrition Skin necrosis Skin ulcer of buttock with necrosis of muscle Smoker 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 Tobacco dependence due to cigarettes Home Medications amlodipine 10 mg tablet 10 mg PO DAILY #30 tabs 08/19/20 [Rx Last Taken 11/02/22] atorvastatin 40 mg tablet 40 mg PO QHS #30 tabs 08/19/20 [Rx Last Taken 10/27/22] lisinopril 20 mg tablet 20 mg PO QHS 09/07/22 [History Last Taken 11/02/22] pantoprazole 40 mg tablet,delayed release 40 mg PO BID 09/07/22 [History Last Taken 11/02/22] sertraline 100 mg tablet 100 mg PO DAILY 09/07/22 [History Last Taken 11/02/22] tamsulosin 0.4 mg capsule 0.4 mg PO DAILY 09/07/22 [History Last Taken 11/02/22] ascorbic acid (vitamin C) 500 mg tablet 500 mg PO TIDCM #0 tabs 09/10/22 [Rx Last Taken 11/02/22] bumetanide 0.5 mg tablet 0.5 mg PO BID #60 tabs 09/10/22 [Rx Last Taken 11/02/22] ferrous sulfate 300 mg (60 mg iron)/5 mL oral liquid 300 mg (5 mL) PO TIDCM #0 mL 09/10/22 [Rx Last Taken 11/02/22] ipratropium 0.5 mg-albuterol 3 mg (2.5 mg base)/3 mL nebulization soln 3 ml inhalation Q4HWA.RT #0 mL 09/10/22 [Rx Last Taken 11/03/22] cholecalciferol (vitamin D3) 50 mcg (2,000 unit) capsule 50 mcg PO DAILY 09/22/22 [History Last Taken 11/02/22] amoxicillin 875 mg-potassium clavulanate 125 mg tablet 1 tab PO BID #30 tabs 10/20/22 [Rx Last Taken 11/02/22] daptomycin 500 mg intravenous solution 500 mg IV DAILY #40 ea 10/20/22 [Rx Last Taken 11/02/22] guaifenesin 600 mg tablet, extended release 12 hr (Mucinex) 1,200 mg PO BID CONGESTION 11/03/22 [History Last Taken 11/02/22] loratadine 10 mg tablet 10 mg PO DAILY ALLERGIES 11/03/22 [History Last Taken 11/02/22] mirtazapine 15 mg tablet (Remeron) 7.5 mg PO QHS APPETITTE 11/03/22 [History Last Taken 11/02/22] multivit,stress formula-zinc tablet 1 tab PO DAILY SKIN INTERVENTION 11/03/22 [History Last Taken 11/02/22] multivit,tx with iron 27 ct-kdbvjwj-taxjf acid 0.4 mg-minerals tablet 1 tab PO DAILY SUPPLEMENT 11/03/22 [History Last Taken 11/02/22] scopolamine base 1 mg over 3 days transdermal patch 1 patch transdermal Q3D SECREATION 11/03/22 [History Last Taken 11/02/22] sodium hypochlorite 0.125 % solution (Dakin's Solution) 1 applic topical Q12H ULCER 11/03/22 [History Last Taken 11/02/22] Allergy/AdvReac Type Severity Reaction Status Date / Time No Known Allergies Allergy Verified 11/03/22 08:40 Family History Father Dementia Mother Dementia Social History household members: none Smoking Status: Former smoker Tobacco: How many years used: 40 Electronic Cigarette Use: with nicotine second hand exposure: Yes alcohol intake: former year quit: 2020 substance use type: does not use caffeine: Yes (4 cups daily) Type: coffee seatbelt use: sometimes EXAM Physical Exam Const Vital Signs: 11/03/22 08:30 11/03/22 08:33 11/03/22 08:38 Temperature 97.9 F 97.9 F Temperature Source Temporal Temporal Pulse Rate 107 H 114 H Respiratory Rate 18 17 Respiratory Effort Respiratory Depth Respiratory Pattern Blood Pressure 84/63 L 84/63 L Blood Pressure Mean 70 70 Blood Pressure Source Blood Pressure Position Blood Pressure Location Pulse Ox 97 97 98 Oxygen Delivery Method Nasal Cannula Nasal Cannula Nasal Cannula Oxygen Flow Rate (L/min) 2 2 2 11/03/22 08:42 11/03/22 09:50 11/03/22 11:15 Temperature Temperature Source Pulse Rate 98 108 H Respiratory Rate 18 17 Respiratory Effort Normal Non-Labored Respiratory Depth Respiratory Pattern Normal Blood Pressure 94/69 127/79 H Blood Pressure Mean 77 95 Blood Pressure Source Blood Pressure Position Blood Pressure Location Pulse Ox 96 98 Oxygen Delivery Method Nasal Cannula Nasal Cannula Oxygen Flow Rate (L/min) 2 2 11/03/22 11:29 11/03/22 11:51 11/03/22 11:52 Temperature 96.6 F L 96.6 F L 96.6 F L Temperature Source Temporal Temporal Temporal Pulse Rate 98 104 H 100 Respiratory Rate 17 16 16 Respiratory Effort Respiratory Depth Respiratory Pattern Blood Pressure 127/79 H 122/64 H 122/64 H Blood Pressure Mean 95 83 83 Blood Pressure Source Blood Pressure Position Blood Pressure Location Pulse Ox 98 96 94 Oxygen Delivery Method Nasal Cannula Nasal Cannula Nasal Cannula Oxygen Flow Rate (L/min) 2 2 2 11/03/22 13:25 11/03/22 12:50 Temperature 97.8 F Temperature Source Oral Pulse Rate 92 Respiratory Rate 18 Respiratory Effort Normal Non-Labored Respiratory Depth Normal Respiratory Pattern Normal Blood Pressure 116/59 L Blood Pressure Mean 78 Blood Pressure Source Monitor Blood Pressure Position Semi-Fowlers Blood Pressure Location Right Arm Pulse Ox 97 Oxygen Delivery Method Nasal Cannula Nasal Cannula Oxygen Flow Rate (L/min) 2 3 MDM MDM MDM Narrative Medical decision making narrative: HISTORY OF PRESENT ILLNESS: 72-year-old male here with concern for decreased oral intake, decreased urine output. Patient states he feels fine. Per EMS retirement patient has a very large sacral decubitus ulcer and has been having low blood pressures despite IV fluid resuscitation to his PICC line and despite daily daptomycin treatment. REVIEW OF SYMPTOMS: Pertinent positives: Hypotension Pertinent negatives: Denies cough, diarrhea, vomiting, black stools, chest pain, palpitations, fever PHYSICAL EXAM: Nursing triage notes reviewed, Vital signs reviewed Constitutional: please see mdm, chronically ill-appearing HENT: Dry oral mucosa Eyes: Pupils equal round and reactive to light, Extraocular muscles intact Neck: No stridor, no JVD, full neck ROM Lungs: Clear to auscultation, No wheezing or rales. No increased work of breathing, no conversational dyspnea, no accessory muscle use, no nasal flaring. No respiratory distress noted Heart: Regular rate and rhythm, No murmurs, No rubs and No gallops, 2+ distal pulses (radial, femoral, posterior tibial) in all extremities Abdomen: Soft, there is no tenderness, rigidity, rebound or guarding, no obvious peritoneal signs, no palpable pulsatile abdominal masses, no auscultated abdominal bruit : No CVAT Pelvis: Large grade 4 sacral decubitus ulcer noted with surrounding erythema no obvious purulence crepitus or bullae noted Extremities: No edema, necrotic appearing lesions to the dorsal surface of the right foot as well as the tips of the toes of the left foot. Neuro: Alert, sensation and motor intact in all 4 extremities, no cranial nerve deficits Skin: Erythema noted around sacral decubitus ulcer, dark eschar like appearance of skin dorsal surface of right foot, distal tips of left first and second toe MEDICAL DECISION MAKING: Chief Complaint: Failure to thrive External records reviewed: Recent ED visit and hospitalization for acute respiratory failure with hypoxia in August and September 2022. At this time noted pressure ulcer over the buttocks. Last echocardiogram from September 2022 shows an ejection fraction of 40% Per infectious disease patient underwent I&D of sacral osteo by . General surgery declined diverting ostomy. Surgical culture with VRE and MRSA at this point vancomycin discontinued. Patient was on daptomycin and Unasyn [facility] Narrative: Patient was initially hypotensive, tachycardic he was afebrile he is nontoxic-appearing he is on 2 L of oxygen which she states is not typically on. His heart lung exam is benign skin exam is concerning for several source of infection including a sacral decubitus ulcer as well as to gangrenous appearance of bilateral feet. I considered the following differential diagnosis: Sepsis, osteomyelitis, myocardial ischemia, arrhythmia, anemia intrapelvic infection, COVID, GI bleed, dehydration, electrode abnormality I obtained a broad lab and imaging work-up, begin sepsis protocol including lactate and blood cultures. Given empiric antibiotics based on current therapy and IDs most recent recommendations. Labs remarkable for evidence of GI bleed however patient no significant anemia, no signs of systemic inflammation which is consistent with likely infection. Patient had mild hypokalemia but no evidence of acute kidney injury, no evidence of significant hepatobiliary pathology, no evidence of myocardial ischemia. Imaging revealed bilateral pulmonary infiltrates, no obvious pelvic infection. No obvious osteomyelitis of bilateral feet. Labs with evidence of systemic inflammation, hypokalemia read as obesity. Patient's blood pressure improved after 30 cc/kg bolus. Suspect the patient is having pneumonia as a cause of his sepsis. Gave broad-spectrum antibiotics admitted to the floor for ongoing antimicrobial therapy and infectious disease consultation. Factors affecting care: History of hypertension, CVA, hyperlipidemia, hyponatremia, peripheral vascular disease, chronic ulcer of right foot Social determinants of health: Poor health literacy, poor historian History obtained from others: EMS Shared decision making: I will have a discussion with the patient and or visitors regarding risk/benefits of further testing or admission. They will be made aware of of the risk/benefits inherent in this decision they will be given the opportunity to voice understanding. Consults: Internal medicine Lab Data Attestation: I reviewed the patient's lab results. Lab results narrative: EKG shows sinus tachycardia, left axis deviation, prolonged QT, no obvious STEMI CBC with leukocytosis suggestive of systemic inflammation, stable anemia, no thrombocytopenia Lactate is wnl indicating no end-organ hypoperfusion and/or hypoxia. Troponin is negative, no evidence of myocardial ischemia Hemoccult positive Labs: Laboratory Results - last 24 hr 11/03/22 11/03/22 11/03/22 09:05 09:05 09:05 WBC 15.9 H RBC 3.14 L Hgb 9.1 L Hct 27.9 L MCV 88.9 MCH 29.0 MCHC 32.6 RDW Std Deviation 53.5 H RDW Coeff of Luis 16.4 H Plt Count 399 MPV 10.0 Immature Gran % (Auto) 0.800 Neut % (Auto) 82.7 H Lymph % (Auto) 7.4 L Bosque % (Auto) 7.9 Eos % (Auto) 0.8 Baso % (Auto) 0.4 Absolute Neuts (auto) 13.1 H Absolute Lymphs (auto) 1.18 Nucleated RBC % 0 PT 15.9 H INR 1.3 APTT 39.3 H Sodium 137 Potassium 3.1 L Chloride 102 Carbon Dioxide 27.0 Anion Gap 8 BUN 23 H Creatinine 0.70 Estim Creat Clear Calc 62.88 Est GFR (MDRD) Af Amer 143 Est GFR (MDRD) Non-Af 118 BUN/Creatinine Ratio 33.0 H Glucose 126 H Lactic Acid Calcium 8.5 Total Bilirubin 0.40 AST 17 ALT 19 Alkaline Phosphatase 106 Troponin I High Sens 12 Total Protein 6.8 Albumin 1.9 L Globulin 4.9 H Albumin/Globulin Ratio 0.4 L Urine Color Urine Clarity Urine pH Ur Specific [place] Urine Protein Urine Glucose (UA) Urine Ketones Urine Occult Blood Urine Nitrite Urine Bilirubin Urine Urobilinogen Ur Leukocyte Esterase Urine RBC Urine WBC Ur Squamous Epith Cells Urine Bacteria Urine Mucus Blood Type Antibody Screen 11/03/22 11/03/22 11/03/22 09:05 09:25 11:10 WBC RBC Hgb Hct MCV MCH MCHC RDW Std Deviation RDW Coeff of Luis Plt Count MPV Immature Gran % (Auto) Neut % (Auto) Lymph % (Auto) Bosque % (Auto) Eos % (Auto) Baso % (Auto) Absolute Neuts (auto) Absolute Lymphs (auto) Nucleated RBC % PT INR APTT Sodium Potassium Chloride Carbon Dioxide Anion Gap BUN Creatinine Estim Creat Clear Calc Est GFR (MDRD) Af Amer Est GFR (MDRD) Non-Af BUN/Creatinine Ratio Glucose Lactic Acid 1.3 Calcium Total Bilirubin AST ALT Alkaline Phosphatase Troponin I High Sens Total Protein Albumin Globulin Albumin/Globulin Ratio Urine Color Yellow Urine Clarity Clear Urine pH 6.0 Ur Specific [place] 1.010 Urine Protein 30 H Urine Glucose (UA) Normal Urine Ketones Negative Urine Occult Blood Negative Urine Nitrite Negative Urine Bilirubin Negative Urine Urobilinogen Normal Ur Leukocyte Esterase 100 H Urine RBC 0 SEEN Urine WBC 5-10 SEEN Ur Squamous Epith Cells 0-5 SEEN Urine Bacteria LAP WELDER Urine Mucus 0 SEEN Blood Type O POSITIVE Antibody Screen NEGATIVE Radiography Diagnostic Testing: Clinical Impression(s) from Imaging Studies Abdomen/Pelvis CT 11/03/22 09:06 IMPRESSION: Bibasilar pulmonary infiltrates. Extensive atherosclerotic calcification of the abdominal aorta and the major branches. Large ulcerated soft tissue lesion overlying the left hemisacrum as described although no definite bony involvement is seen. Abnormal appearance in the partial collapse of the T11 and T12 vertebrae. Electronically Signed: Reymundo Collier MD at 10:48 EDT , Foot X-Ray 11/03/22 09:07 IMPRESSION: Osteopenia in the head of the fifth metatarsal. Early osteomyelitis. Marked degree of degenerative changes of the first metatarsal phalangeal joint. 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 This has progressed as compared to prior study. Electronically Signed: Reymundo Collier MD at 10:58 EDT , Chest X-Ray 11/03/22 10:25 IMPRESSION: Mild increased markings at the lung bases with blunting of the right costophrenic angle. Electronically Signed: Reymundo Collier MD at 10:49 EDT , Discharge Plan Dx/Rx/DC Orders Clinical Impression: Sepsis, Acute hypotension, Leukocytosis Disposition Disposition: Acute Care Hospital [facility] Discharge Date/Time: 11/03/22 12:14
--- NOTE | 2022-11-03 08:38 | EKG12_ITS ---
Test Reason : Blood Pressure : / mmHG Vent. Rate : 114 BPM Atrial Rate : 114 BPM P-R Int : 146 ms QRS Dur : 078 ms QT Int : 344 ms P-R-T Axes : 075 -60 032 degrees QTc Int : 474 ms Sinus tachycardia with Premature atrial complexes Left axis deviation Abnormal ECG Confirmed by PAT SCHMID, CONOR ([id number]), supervising editor trailer TIFFANI WHITE ([id number]) on 11/04/2022 12:50:54 P M Referred By: ANAYA Confirmed By:TOM STEWART MD
--- NOTE | 2022-11-03 09:06 | CT_ITS ---
STUDY: CT ABDOMEN AND PELVIS WITHOUT CONTRAST REASON FOR EXAM: Male, 72 years old. Large sacral ulcer r/o osteo, deeper pelvic infxn RADIATION DOSAGE (If Supplied By Facility): CTDIvol = ( 7.23 ) mGy, DLP = ( 361.21 ) mGycm TECHNIQUE: Transaxial images were obtained from the dome of the diaphragm to the symphysis pubis without oral contrast, and without intravenous contrast. Sagittal and coronal images were reconstructed. Individualized dose optimization techniques were used for this CT. COMPARISON: Comparison is made with prior study dated October 07, 2022. FINDINGS: Patchy bibasilar pulmonary infiltrates. Coronary artery calcification. Normal liver. Normal gallbladder and extrahepatic biliary system. Normal spleen. Normal pancreas. Normal bilateral adrenal glands. Normal right kidney. Normal left kidney. Normal visualized stomach. Normal small intestine. Moderate amount of fecal material is seen in the colon. The appendix is visualized and appears normal. There is diffuse atherosclerotic calcification of the abdominal aorta and its major visceral branches, without a demonstrated aneurysm. Normal inferior vena cava. Normal retroperitoneum. A Soto catheter is seen within the urinary bladder. There is enlargement of the prostate gland. Prostatic calcifications are seen. There is a 7.2 cm x 1.1 cm ulceration overlying the left side of the sacrum. This abuts the left side of the sacrum although no definite bony destruction is seen at this time. This has progressed as compared to prior study. There are degenerative changes of the visualized lumbar spine. Abnormal appearance of the T11 and T12 vertebrae with collapse. This is unchanged as compared to prior study. Osteomyelitis should be ruled out. CT/Abdomen/Pelvis without Cont IMPRESSION: Bibasilar pulmonary infiltrates. Extensive atherosclerotic calcification of the abdominal aorta and the major branches. Large ulcerated soft tissue lesion overlying the left hemisacrum as described although no definite bony involvement is seen. Abnormal appearance in the partial collapse of the T11 and T12 vertebrae. Electronically Signed: Reymundo Collier MD at 10:48 EDT ,
--- NOTE | 2022-11-03 09:07 | RAD_ITS ---
STUDY: X-RAY - LEFT FOOT CLINICAL: Male, 72 years old. Foot infxn assess bony involvement TECHNIQUE: 2 view(s) of the foot. COMPARISON: Comparison is made with prior study dated October 07, 2022. FINDINGS: Normal talus, calcaneus, and tarsal bones. Normal visualized subtalar, talonavicular, calcaneocuboid, tarsal and tarsometatarsal articulations. The measurements of the osteopenia of the head of the fifth metatarsal. Early osteomyelitis should be There is a marked degree of degenerative arthrosis of the metatarsophalangeal joint of the hallux with a hallux valgus deformity. Normal tibial and fibular sesamoid bones. Normal interphalangeal joint of the great toe. Normal phalanges of the great toe. Normal second through fifth metatarsophalangeal joints. Normal interphalangeal joints and phalanges of the lesser toes. The soft tissue structures are unremarkable. RAD/Foot 2 Views IMPRESSION: Osteopenia in the head of the fifth metatarsal. Early osteomyelitis. Marked degree of degenerative changes of the first metatarsal phalangeal joint. Electronically Signed: Reymundo Collier MD at 11:00 EDT ,
--- NOTE | 2022-11-03 09:09 | RAD_ITS ---
STUDY: X-RAY - RIGHT FOOT CLINICAL: Male, 72 years old. Foot infxn assess bony involvement TECHNIQUE: 3 view(s) of the foot. COMPARISON: Comparison is made with prior study dated October 07, 2022. FINDINGS: Normal talus, calcaneus, and tarsal bones. Normal visualized subtalar, talonavicular, calcaneocuboid, tarsal and tarsometatarsal articulations. There is evidence of a osteopenia with erosive changes in the distal aspect of the fifth metatarsal. This has progressed as compared to prior study and is in keeping with osteomyelitis. There is a marked degree of degenerative arthrosis of the metatarsophalangeal joint of the hallux . Normal tibial and fibular sesamoid bones. Normal interphalangeal joint of the great toe. Normal phalanges of the great toe. Normal second through fifth metatarsophalangeal joints. Normal interphalangeal joints and phalanges of the lesser toes. Soft tissue swelling. 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 This has progressed as compared to prior study. Electronically Signed: Reymundo Collier MD at 10:58 EDT ,
[2022-11-03] MEDS: Lactated Ringers 1,000 ML 999 ML IV ×2 (09:38→10:39)
[2022-11-03 09:39] LABS: Absolute Lymphocyte Count 1.18 X10^3/uL (0.83-4.51); Absolute Neutrophil Count 13.1 X10^3/uL (2.0-7.7); Basophil# 0.06 X10^3/uL; Basophil% 0.4 % (0-1); Eosinophil# 0.13 X10^3/uL; Eosinophils% 0.8 % (0-5); Hematocrit 27.9 % (40-54); Hemoglobin 9.1 g/dL (13.0-16.5); Lymphocyte # 1.18 X10^3/ul (0.83-4.51); Lymphocyte % 7.4 % (19-41); Mean Corp Hgb Conc 32.6 g/dL (32-36); Mean Corpuscular Volume 88.9 fL (80-94); Monocyte# 1.26 X10^3/uL; Monocyte% 7.9 % (0-10); NRBC Flagged by Analyzer 0 % (0-5); Neutrophil % 82.7 % (47-70); Platelet Count 399 K/mm3 (150-450); RBC Distribution Width CV 16.4 % (11.6-14.6); RBC Distribution Width SD 53.5 fl (35.1-43.9); Red Blood Count 3.14 M/mm3 (4.6-6.2); White Blood Count 15.9 K/mm3 (4.4-11.0)
[2022-11-03 09:48] LABS: International Normalized Ratio 1.3; Partial Thromboplast Time 39.3 Seconds (24.1-36.2); Prothrombin Time (Protime)PT. 15.9 SECONDS (11.7-14.9)
[2022-11-03 09:57] LABS: ALB/GLOB Ratio 0.4 RATIO (0.9-2.4); AST(SGOT) 17 U/L (15-37); Alanine Aminotransfer ALT/SGPT 19 U/L (16-61); Albumin, Serum 1.9 g/dL (3.2-5.0); Alkaline Phosphatase 106 U/L (45-117); Anion Gap 8 (5-15); BUN 23 mg/dL (7-18); Calcium,Total 8.5 mg/dL (8.5-10.1); Chloride 102 mmol/L (98-107); EST Glomerular Filtration Rate 118 mL/min (>60); Est Glom Filt Rate - Afr Amer 143 mL/min (>60); Estimated Creatinine Clearance 62.88 ml/min; Globulin 4.9 g/dL (2.2-4.2); Glucose 126 mg/dL (74-106); Potassium 3.1 mmol/L (3.5-5.1); Protein, Total 6.8 g/dL (6.4-8.2); Sodium Level 137 mmol/L (136-145); Troponin-I HS 12 pg/mL (3.0-78.0)
[2022-11-03 10:14] LABS: Lactic Acid 1.3 mmol/L (0.4-1.9)
--- NOTE | 2022-11-03 10:25 | RAD_ITS ---
STUDY: X-RAY CHEST REASON FOR EXAM: Male, 72 years old. Hypotension, tachycardia TECHNIQUE: Single AP portable view of the chest. COMPARISON: Comparison is made with prior study dated October 07, 2022. FINDINGS: A left-sided PICC line catheter is seen with the tip in the midportion of the superior vena cava. EKG electrodes are seen. Mild increased markings at the lung bases slightly more prominent on the left side. Blunting of the right costophrenic angle. Normal size heart. Normal mediastinum and martin. Normal visualized pulmonary arteries. There is atherosclerotic calcification of the aortic arch with tortuosity. Normal visualized thoracic spine. Normal visualized ribs, clavicles, and shoulders. There is no demonstrated abnormality of the visualized soft tissue structures of the upper abdomen. RAD/Chest 1 View (Portable) IMPRESSION: Mild increased markings at the lung bases with blunting of the right costophrenic angle. Electronically Signed: Reymundo Collier MD at 10:49 EDT ,
[2022-11-03 11:15] LABS: Mucous, Urine 0 SEEN /hpf (<or=2+); Red Blood Cells-Urine 0 SEEN /hpf (0-5)
[2022-11-03 11:16] LABS: Color, Urine Yellow (Yellow); Glucose, Dipstick Normal (Normal); Ketone-Dipstick Negative (Negative); Leukocyte Esterase-Dipstick 100 /ul (Negative); Nitrite-Dipstick Negative (Negative); Occult Blood-Urine Negative /ul (Negative); Protein-Dipstick 30 mg/dl (Negative); Urine Bilirubin Dipstick Negative (Negative); Urine Clarity Clear (Clear); Urine Urobilinogen Normal (Normal)
[2022-11-03 11:20] LABS: White Blood Cells 5-10 SEEN /hpf (0-5)
[2022-11-03 11:22] LABS: Squamous Epithelial Cells - UA 0-5 SEEN /hpf (0-5)
--- NOTE | 2022-11-03 11:26 | ED.RN ---
THIS RN ASSUMED CARE AT 1120. FLUID RESUSCITATION COMPLETED WHEN THIS RN ASSUMED CARE.
[2022-11-03] MEDS: 0.9% Normal Saline 1,000 ML 100 ML IV ×2 (14:15→21:23)
--- NOTE | 2022-11-03 14:16 | EX.PCM.CON.S ---
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 Patient also responded to the question of what he wanted discussed the colostomy with I just had some of my teeth pulled and the doctors do not know if it is going to heal. We will plan to try to discuss further with patient when he is more awake hopefully tomorrow. Also attempted to discuss possible PEG tube with patient as his nutrition may be more of an issue with healing than needing a colostomy as it does appear patient can have a wound VAC placed in that area without much issue. Currently per wound nurse pictures wound does not appear to be infected. Harper Womack M.D. Pager: [phone] [facility] [address] [place] [address], [address] [place] [address] Office: [phone] HPI Consult Data Date of Consult: 11/04/22 HPI Narrative Reason for Consultation: Diverting colostomy. HPI Narrative: NIKOLAS ADAMS, is a 72 M who admitted due to hypotension, history of sacral decubitus ulcer. Patient had previously declined any diverting colostomy due to his sacral decubitus ulcer. Patient has been able to have the wound VAC in place. Currently does not appear to be infected per pictures taken by wound nurse today. Patient previously underwent debridement on last hospitalization and was quite adamant about not having a colostomy at that time. Per hospitalist patient is agreeable to discuss possible colostomy. [facility] Medical History (Updated 11/03/22 @ 15:[address] 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 Bilateral carotid artery stenosis Cervical spondylosis Cervical stenosis of spinal canal Cognitive dysfunction Decubitus ulcer, stage 4 with infection Dependent on walker for ambulation Dysphagia Essential (primary) hypertension Glucose intolerance (impaired glucose tolerance) History of alcohol abuse History of stroke (08/01/20) Hyperlipidemia Hyponatremia Mass of parotid gland MRSA (methicillin resistant Staphylococcus aureus) infection Non-pressure chronic ulcer of other part of right foot with necrosis of muscle Osteomyelitis, chronic, pelvis or thigh Osteomyelitis, pelvis Peripheral vascular disease, unspecified Peripheral vascular occlusive disease Presbycusis of both ears Severe malnutrition Skin necrosis Skin ulcer of buttock with necrosis of muscle Smoker 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 Tobacco dependence due to cigarettes Home Medications amlodipine 10 mg tablet 10 mg PO DAILY #30 tabs 08/19/20 [Rx Last Taken 11/02/22] atorvastatin 40 mg tablet 40 mg PO QHS #30 tabs 08/19/20 [Rx Last Taken 10/27/22] lisinopril 20 mg tablet 20 mg PO QHS 09/07/22 [History Last Taken 11/02/22] pantoprazole 40 mg tablet,delayed release 40 mg PO BID 09/07/22 [History Last Taken 11/02/22] sertraline 100 mg tablet 100 mg PO DAILY 09/07/22 [History Last Taken 11/02/22] tamsulosin 0.4 mg capsule 0.4 mg PO DAILY 09/07/22 [History Last Taken 11/02/22] ascorbic acid (vitamin C) 500 mg tablet 500 mg PO TIDCM #0 tabs 09/10/22 [Rx Last Taken 11/02/22] bumetanide 0.5 mg tablet 0.5 mg PO BID #60 tabs 09/10/22 [Rx Last Taken 11/02/22] ferrous sulfate 300 mg (60 mg iron)/5 mL oral liquid 300 mg (5 mL) PO TIDCM #0 mL 09/10/22 [Rx Last Taken 11/02/22] ipratropium 0.5 mg-albuterol 3 mg (2.5 mg base)/3 mL nebulization soln 3 ml inhalation Q4HWA.RT #0 mL 09/10/22 [Rx Last Taken 11/03/22] cholecalciferol (vitamin D3) 50 mcg (2,000 unit) capsule 50 mcg PO DAILY 09/22/22 [History Last Taken 11/02/22] amoxicillin 875 mg-potassium clavulanate 125 mg tablet 1 tab PO BID #30 tabs 10/20/22 [Rx Last Taken 11/02/22] daptomycin 500 mg intravenous solution 500 mg IV DAILY #40 ea 10/20/22 [Rx Last Taken 11/02/22] guaifenesin 600 mg tablet, extended release 12 hr (Mucinex) 1,200 mg PO BID CONGESTION 11/03/22 [History Last Taken 11/02/22] loratadine 10 mg tablet 10 mg PO DAILY ALLERGIES 11/03/22 [History Last Taken 11/02/22] mirtazapine 15 mg tablet (Remeron) 7.5 mg PO QHS APPETITTE 11/03/22 [History Last Taken 11/02/22] multivit,stress formula-zinc tablet 1 tab PO DAILY SKIN INTERVENTION 11/03/22 [History Last Taken 11/02/22] multivit,tx with iron 27 qv-qzffsed-acgxu acid 0.4 mg-minerals tablet 1 tab PO DAILY SUPPLEMENT 11/03/22 [History Last Taken 11/02/22] scopolamine base 1 mg over 3 days transdermal patch 1 patch transdermal Q3D SECREATION 11/03/22 [History Last Taken 11/02/22] sodium hypochlorite 0.125 % solution (Dakin's Solution) 1 applic topical Q12H ULCER 11/03/22 [History Last Taken 11/02/22] Allergy/AdvReac Type Severity Reaction Status Date / Time No Known Allergies Allergy Verified 11/03/22 08:40 Family History Father Dementia Mother Dementia Social History household members: none Smoking Status: Former smoker Tobacco: How many years used: 40 Electronic Cigarette Use: with nicotine second hand exposure: Yes alcohol intake: former year quit: 2020 substance use type: does not use caffeine: Yes (4 cups daily) Type: coffee seatbelt use: sometimes ROS ROS Narrative Patient is quite somnolent unable to do review of systems as patient keeps falling asleep. Review of Systems ROS Unobtainable: due to mental status Physical Exam Const oriented x3 Constitutional Narrative: Somnolent falls asleep during questioning repeatedly HEENT normocephalic Neck supple Resp normal respiratory effort Cardio Rate: regular rate GI soft to palpation, non-tender and non-distended Extremity Extremity Narrative: Wounds on lower extremities/feet Skin no jaundice Psych Mood & Affect: flat affect Medical Records Data Medical Nutrition Assessment Dietitian: Malnutrition Criteria Met Start: 11/03/22 14:09 Freq: Status: Active Protocol: Document 11/03/22 14:10 (Rec: 11/03/22 14:10 AG [id number]) Nutrition Malnutrition Evidence of Malnutrition Exists Yes Malnutrition (severe): Chronic Evidenced By Suboptimal Energy Intake ( Severe),Weight Loss (Severe) Clinical Problem Chronic Disease or Condition Related Malnutrition Etiology chronic, severe malnutrition related to inadequate energy intake Signs/Symptoms as evidenced by unintentional wt loss of 38.5#/21% x 8 months, estimated PO intake meeting <75% of estimated energy needs > 3 months Status Active Problem Recommendation Dietitian Recommendations/Changes regular diet as tolerated- texture/consistency per STABILIZER OPERATOR; ensure plus high protein 120mL 4x/day w/ medpass and Alfonso BID for wound healing. Lab / Micro Data Result Diagrams: 11/04/22 03:51 11/04/22 03:51 Labs: Laboratory Results - last 24 hr 11/03/22 09:05: WBC 15.9 H, RBC 3.14 L, Hgb 9.1 L, Hct 27.9 L, MCV 88.9, MCH 29.0, MCHC 32.6, RDW Std Deviation 53.5 H, RDW Coeff of Luis 16.4 H, Plt Count 399, MPV 10.0, Immature Gran % (Auto) 0.800, Neut % (Auto) 82.7 H, Lymph % (Auto) 7.4 L, [place] % (Auto) 7.9, Eos % (Auto) 0.8, Baso % (Auto) 0.4, Absolute Neuts (auto) 13.1 H, Absolute Lymphs (auto) 1.18, Nucleated RBC % 0 11/03/22 09:05: PT 15.9 H, INR 1.3, APTT 39.3 H 11/03/22 09:05: Sodium 137, Potassium 3.1 L, Chloride 102, Carbon Dioxide 27.0, Anion Gap 8, BUN 23 H, Creatinine 0.70, Estim Creat Clear Calc 62.88, Est GFR (MDRD) Af Amer 143, Est GFR (MDRD) Non-Af 118, BUN/Creatinine Ratio 33.0 H, Glucose 126 H, Calcium 8.5, Total Bilirubin 0.40, AST 17, ALT 19, Alkaline Phosphatase 106, Troponin I High Sens 12, Total Protein 6.8, Albumin 1.9 L, Globulin 4.9 H, Albumin/Globulin Ratio 0.4 L 11/03/22 09:05: Blood Type O POSITIVE, Antibody Screen NEGATIVE 11/03/22 09:25: Lactic Acid 1.3 11/03/22 11:10: Urine Color Yellow, Urine Clarity Clear, Urine pH 6.0, Ur Specific [place] 1.010, Urine Protein 30 H, Urine Glucose (UA) Normal, Urine Ketones Negative, Urine Occult Blood Negative, Urine Nitrite Negative, Urine Bilirubin Negative, Urine Urobilinogen Normal, Ur Leukocyte Esterase 100 H, Urine RBC 0 SEEN, Urine WBC 5-10 SEEN, Ur Squamous Epith Cells 0-5 SEEN, Urine Bacteria FINANCIAL AID DIRECTOR, Urine Mucus 0 SEEN Micro: Microbiology 11/03/22 09:05 Stool Stool Occult Blood (VIMAL) - Final Occult Blood Positive Radiology Impression Abdomen/Pelvis CT 11/03/22 09:06 IMPRESSION: Bibasilar pulmonary infiltrates. Extensive atherosclerotic calcification of the abdominal aorta and the major branches. Large ulcerated soft tissue lesion overlying the left hemisacrum as described although no definite bony involvement is seen. Abnormal appearance in the partial collapse of the T11 and T12 vertebrae. Electronically Signed: Reymundo Collier MD at 10:48 EDT , Foot X-Ray 11/03/22 09:07 IMPRESSION: Osteopenia in the head of the fifth metatarsal. Early osteomyelitis. Marked degree of degenerative changes of the first metatarsal phalangeal joint. 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 This has progressed as compared to prior study. Electronically Signed: Reymundo Collier MD at 10:58 EDT Reading Location ID and State: [id number] / [employer] , Service support , Chest X-Ray 11/03/22 10:25 IMPRESSION: Mild increased markings at the lung bases with blunting of the right costophrenic angle. Electronically Signed: Reymundo Collier MD at 10:49 EDT , Charges/Coding Visit Charges Inpatient E&M: [id number] Init Hosp L3
--- NOTE | 2022-11-03 14:37 | WOUNDNOTE ---
wound photo: right lower leg/foot
--- NOTE | 2022-11-03 14:38 | WOUNDNOTE ---
wound photo: right foot
--- NOTE | 2022-11-03 14:39 | WOUNDNOTE ---
wound photo: right lateral foot
--- NOTE | 2022-11-03 14:40 | WOUNDNOTE ---
wound photo: right heel
--- NOTE | 2022-11-03 14:40 | WOUNDNOTE ---
wound photo: left foot
--- NOTE | 2022-11-03 14:41 | WOUNDNOTE ---
wound photo: left foot
--- NOTE | 2022-11-03 14:42 | WOUNDNOTE ---
wound photo: left heel
--- NOTE | 2022-11-03 14:42 | WOUNDNOTE ---
wound photo: left sacrum/buttock
[2022-11-03] MEDS: Juven (unflavored) Packet 1 PACKET PO (16:27)
[2022-11-03] MEDS: Ferrous Sulfate 325 MG Tablet PO (16:27)
[2022-11-03] MEDS: Ascorbic Acid 500 MG Tablet PO (16:27)
[2022-11-03] MEDS: Tamsulosin HCl 0.4 MG Capsule PO (16:27)
--- NOTE | 2022-11-03 17:26 | PCM.HP.STD ---
HPI - General General Date of Admission: 11/03/22 Date of Service: 11/03/22 Chief Complaint: Hypotension, lethargy HPI Narrative NIKOLAS ADAMS, is a 72 M who presents to the emergency room at [facility] from an extended care facility due to hypotension and lethargy. Patient had been hospitalized at [facility] for an extended length of time in September 2022 and was transferred to an extended care facility for inpatient rehab services on 10/21/2022. Patient's medical problems at that time included a large pressure ulceration of his lower back and coccyx area along with osteomyelitis of the area, patient had refused to undergo a colostomy to promote wound healing and was transferred to the extended care facility for further care. Patient's wound culture was positive for VRE and MRSA. Patient received daptomycin and Augmentin at the [facility] care facility. On evaluation in the emergency room today, patient's blood pressure was noted to be low, he was given IV fluids with improvement of the patient's blood pressure. Patient's CBC revealed a white blood cell count of 15.9, hemoglobin was 9.1, patient's potassium was 3.1 and BUN was elevated at 23. Patient was noted to be tachycardic. Chest x-ray showed mild increased markings at the lung bases with blunting of the right costophrenic angle. Abdominal and pelvic CT showed bibasilar pulmonary infiltrates with a large ulcerated soft tissue lesion overlying the left hemisacrum, no definite bony involvement was seen. There was noted to be partial collapse of T11 and T12 vertebrae. Patient was admitted to PCU for sepsis, he will be seen by infectious diseases, I had a conversation with the patient who was confused, at times he was appropriate however. I also talked with the patient's brother who was present at the time my examination. Patient initially did not want to undergo a colostomy when this was discussed with him today, he then relented and told me that he would consider it, I had general surgery see the patient and they were not able to carry on a lucid conversation with the patient today. According to patient's brother, he does not have a durable medical power of [place] attorney. [facility] Medical History (Updated 11/03/22 @ 15:[address] 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 Bilateral carotid artery stenosis Cervical spondylosis Cervical stenosis of spinal canal Cognitive dysfunction Decubitus ulcer, stage 4 with infection Dependent on walker for ambulation Dysphagia Essential (primary) hypertension Glucose intolerance (impaired glucose tolerance) History of alcohol abuse History of stroke (08/01/20) Hyperlipidemia Hyponatremia Mass of parotid gland MRSA (methicillin resistant Staphylococcus aureus) infection Non-pressure chronic ulcer of other part of right foot with necrosis of muscle Osteomyelitis, chronic, pelvis or thigh Osteomyelitis, pelvis Peripheral vascular disease, unspecified Peripheral vascular occlusive disease Presbycusis of both ears Severe malnutrition Skin necrosis Skin ulcer of buttock with necrosis of muscle Smoker 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 Tobacco dependence due to cigarettes Home Medications amlodipine 10 mg tablet 10 mg PO DAILY #30 tabs 08/19/20 [Rx Last Taken 11/02/22] atorvastatin 40 mg tablet 40 mg PO QHS #30 tabs 08/19/20 [Rx Last Taken 10/27/22] lisinopril 20 mg tablet 20 mg PO QHS 09/07/22 [History Last Taken 11/02/22] pantoprazole 40 mg tablet,delayed release 40 mg PO BID 09/07/22 [History Last Taken 11/02/22] sertraline 100 mg tablet 100 mg PO DAILY 09/07/22 [History Last Taken 11/02/22] tamsulosin 0.4 mg capsule 0.4 mg PO DAILY 09/07/22 [History Last Taken 11/02/22] ascorbic acid (vitamin C) 500 mg tablet 500 mg PO TIDCM #0 tabs 09/10/22 [Rx Last Taken 11/02/22] bumetanide 0.5 mg tablet 0.5 mg PO BID #60 tabs 09/10/22 [Rx Last Taken 11/02/22] ferrous sulfate 300 mg (60 mg iron)/5 mL oral liquid 300 mg (5 mL) PO TIDCM #0 mL 09/10/22 [Rx Last Taken 11/02/22] ipratropium 0.5 mg-albuterol 3 mg (2.5 mg base)/3 mL nebulization soln 3 ml inhalation Q4HWA.RT #0 mL 09/10/22 [Rx Last Taken 11/03/22] cholecalciferol (vitamin D3) 50 mcg (2,000 unit) capsule 50 mcg PO DAILY 09/22/22 [History Last Taken 11/02/22] amoxicillin 875 mg-potassium clavulanate 125 mg tablet 1 tab PO BID #30 tabs 10/20/22 [Rx Last Taken 11/02/22] daptomycin 500 mg intravenous solution 500 mg IV DAILY #40 ea 10/20/22 [Rx Last Taken 11/02/22] guaifenesin 600 mg tablet, extended release 12 hr (Mucinex) 1,200 mg PO BID CONGESTION 11/03/22 [History Last Taken 11/02/22] loratadine 10 mg tablet 10 mg PO DAILY ALLERGIES 11/03/22 [History Last Taken 11/02/22] mirtazapine 15 mg tablet (Remeron) 7.5 mg PO QHS APPETITTE 11/03/22 [History Last Taken 11/02/22] multivit,stress formula-zinc tablet 1 tab PO DAILY SKIN INTERVENTION 11/03/22 [History Last Taken 11/02/22] multivit,tx with iron 27 oa-ytmneyt-mxotl acid 0.4 mg-minerals tablet 1 tab PO DAILY SUPPLEMENT 11/03/22 [History Last Taken 11/02/22] scopolamine base 1 mg over 3 days transdermal patch 1 patch transdermal Q3D SECREATION 11/03/22 [History Last Taken 11/02/22] sodium hypochlorite 0.125 % solution (Dakin's Solution) 1 applic topical Q12H ULCER 11/03/22 [History Last Taken 11/02/22] Allergy/AdvReac Type Severity Reaction Status Date / Time No Known Allergies Allergy Verified 11/03/22 08:40 Family History Father Dementia Mother Dementia Social History household members: none Smoking Status: Former smoker Tobacco: How many years used: 40 Electronic Cigarette Use: with nicotine second hand exposure: Yes alcohol intake: former year quit: 2020 substance use type: does not use caffeine: Yes (4 cups daily) Type: coffee seatbelt use: sometimes ROS ROS Narrative View of systems was unobtainable due to patient's hearing loss and intermittent episodes of confusion during my examination. Patient's answers were not consistent. Vital Signs Vital Signs Vital Signs: 11/03/22 08:30 11/03/22 08:33 11/03/22 08:38 Temperature 97.9 F 97.9 F Temperature Source Temporal Temporal Pulse Rate 107 H 114 H Respiratory Rate 18 17 Respiratory Effort Respiratory Depth Respiratory Pattern Blood Pressure 84/63 L 84/63 L Blood Pressure Mean 70 70 Blood Pressure Source Blood Pressure Position Blood Pressure Location Pulse Ox 97 97 98 Oxygen Delivery Method Nasal Cannula Nasal Cannula Nasal Cannula Oxygen Flow Rate (L/min) 2 2 2 11/03/22 08:42 11/03/22 09:50 11/03/22 11:15 Temperature Temperature Source Pulse Rate 98 108 H Respiratory Rate 18 17 Respiratory Effort Normal Non-Labored Respiratory Depth Respiratory Pattern Normal Blood Pressure 94/69 127/79 H Blood Pressure Mean 77 95 Blood Pressure Source Blood Pressure Position Blood Pressure Location Pulse Ox 96 98 Oxygen Delivery Method Nasal Cannula Nasal Cannula Oxygen Flow Rate (L/min) 2 2 11/03/22 11:29 11/03/22 11:51 11/03/22 11:52 Temperature 96.6 F L 96.6 F L 96.6 F L Temperature Source Temporal Temporal Temporal Pulse Rate 98 104 H 100 Respiratory Rate 17 16 16 Respiratory Effort Respiratory Depth Respiratory Pattern Blood Pressure 127/79 H 122/64 H 122/64 H Blood Pressure Mean 95 83 83 Blood Pressure Source Blood Pressure Position Blood Pressure Location Pulse Ox 98 96 94 Oxygen Delivery Method Nasal Cannula Nasal Cannula Nasal Cannula Oxygen Flow Rate (L/min) 2 2 2 11/03/22 13:25 11/03/22 12:50 11/03/22 16:40 Temperature 97.8 F 97.6 F L Temperature Source Oral Oral Pulse Rate 92 88 Respiratory Rate 18 18 Respiratory Effort Normal Non-Labored Respiratory Depth Normal Respiratory Pattern Normal Blood Pressure 116/59 L 123/76 H Blood Pressure Mean 78 91 Blood Pressure Source Monitor Monitor Blood Pressure Position Semi-Fowlers Semi-Fowlers Blood Pressure Location Right Arm Right Arm Pulse Ox 97 99 Oxygen Delivery Method Nasal Cannula Nasal Cannula Nasal Cannula Oxygen Flow Rate (L/min) 2 3 2 Weight Weight: 64.2 kg Body Mass Index (BMI) 19.7 Physical Exam Const alert Constitutional Narrative: Patient appears older than his stated age General Appearance: cooperative and well developed Orientation / Consciousness: awake, oriented to person and oriented to place HEENT normocephalic, head/scalp atraumatic and moist oral mucous membranes HEENT Narrative: Patient is hard of hearing Eyes PERRL, EOMs intact bilaterally and conjunctivae normal Neck supple, no JVD, thyroid normal and no carotid bruits General: trachea midline Resp normal respiratory effort, no retractions, no use of accessory muscles and clear to auscultation bilaterally Auscultation: Negative for rales, rhonchi or wheezes Cardio regular rate, regular rhythm, S1 normal heart sound, S2 normal heart sound, no murmurs, no rub and no gallops GI normal to inspection, nondistended, normoactive bowel sounds, soft to palpation, non-tender and non-distended Extremity Extremity Narrative: There is evidence of black eschars over the patient's feet bilaterally worse on the right especially on the dorsal aspect of the right foot, areas of dry gangrene are noted over the patient's toes bilaterally, there is a large open area over the patient's right lateral malleolus Skin Skin Narrative: There is a large defect in the skin over the left lower back area and left sacral/buttocks area, this defect is full-thickness of the skin and the patient's sacrum is visible at the bottom of the wound. This wound is approximately 8-10 cm in diameter, there is an area of redness around the wound covering the left upper buttocks and right upper buttocks area as well as the mid lumbar area Neuro CN's II-XII intact bilaterally, no focal motor deficits and no sensory deficits noted Sensorium / Orientation: awake, alert, oriented to person and oriented to place Speech: speech normal Psych Psych Narrative: Patient is confused at times during my examination, he is difficult to communicate with due to severe hearing loss Results Medical Records Data Medical Nutrition Assessment Dietitian: Malnutrition Criteria Met Start: 11/03/22 14:09 Freq: Status: Active Protocol: Document 11/03/22 14:10 (Rec: 11/03/22 14:10 [id number]) Nutrition Malnutrition Evidence of Malnutrition Exists Yes Malnutrition (severe): Chronic Evidenced By Suboptimal Energy Intake ( Severe),Weight Loss (Severe) Clinical Problem Chronic Disease or Condition Related Malnutrition Etiology chronic, severe malnutrition related to inadequate energy intake Signs/Symptoms as evidenced by unintentional wt loss of 38.5#/21% x 8 months, estimated PO intake meeting <75% of estimated energy needs > 3 months Status Active Problem Recommendation Dietitian Recommendations/Changes regular diet as tolerated- texture/consistency per SORT LINE WORKER; ensure plus high protein 120mL 4x/day w/ medpass and Alfonso BID for wound healing. Lab / Micro Data Result Diagrams: 11/03/22 09:05 11/03/22 09:05 Labs: Laboratory Results - last 24 hr 11/03/22 09:05: WBC 15.9 H, RBC 3.14 L, Hgb 9.1 L, Hct 27.9 L, MCV 88.9, MCH 29.0, MCHC 32.6, RDW Std Deviation 53.5 H, RDW Coeff of Luis 16.4 H, Plt Count 399, MPV 10.0, Immature Gran % (Auto) 0.800, Neut % (Auto) 82.7 H, Lymph % (Auto) 7.4 L, [place] % (Auto) 7.9, Eos % (Auto) 0.8, Baso % (Auto) 0.4, Absolute Neuts (auto) 13.1 H, Absolute Lymphs (auto) 1.18, Nucleated RBC % 0 11/03/22 09:05: PT 15.9 H, INR 1.3, APTT 39.3 H 11/03/22 09:05: Sodium 137, Potassium 3.1 L, Chloride 102, Carbon Dioxide 27.0, Anion Gap 8, BUN 23 H, Creatinine 0.70, Estim Creat Clear Calc 62.88, Est GFR (MDRD) Af Amer 143, Est GFR (MDRD) Non-Af 118, BUN/Creatinine Ratio 33.0 H, Glucose 126 H, Calcium 8.5, Total Bilirubin 0.40, AST 17, ALT 19, Alkaline Phosphatase 106, Troponin I High Sens 12, Total Protein 6.8, Albumin 1.9 L, Globulin 4.9 H, Albumin/Globulin Ratio 0.4 L 11/03/22 09:05: Blood Type O POSITIVE, Antibody Screen NEGATIVE 11/03/22 09:25: Lactic Acid 1.3 11/03/22 11:10: Urine Color Yellow, Urine Clarity Clear, Urine pH 6.0, Ur Specific [place] 1.010, Urine Protein 30 H, Urine Glucose (UA) Normal, Urine Ketones Negative, Urine Occult Blood Negative, Urine Nitrite Negative, Urine Bilirubin Negative, Urine Urobilinogen Normal, Ur Leukocyte Esterase 100 H, Urine RBC 0 SEEN, Urine WBC 5-10 SEEN, Ur Squamous Epith Cells 0-5 SEEN, Urine Bacteria 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 Extensive atherosclerotic calcification of the abdominal aorta and the major branches. Large ulcerated soft tissue lesion overlying the left hemisacrum as described although no definite bony involvement is seen. Abnormal appearance in the partial collapse of the T11 and T12 vertebrae. Electronically Signed: Reymundo Collier MD at 10:48 EDT , Foot X-Ray 11/03/22 09:07 IMPRESSION: Osteopenia in the head of the fifth metatarsal. Early osteomyelitis. Marked degree of degenerative changes of the first metatarsal phalangeal joint. 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 This has progressed as compared to prior study. Electronically Signed: Reymundo Collier MD at 10:58 EDT , Chest X-Ray 11/03/22 10:25 IMPRESSION: Mild increased markings at the lung bases with blunting of the right costophrenic angle. Electronically Signed: Reymundo Collier MD at 10:49 EDT , Assessment & Plan Assessment/Plan (1) Sepsis: PLAN: Plan 1. Acute sepsis secondary to deep wound infection of the left lower back and sacral/buttocks area with VRE and MRSA-patient will be admitted to PCU, he will continue IV daptomycin and I have placed him on IV Zosyn, infectious diseases will see the patient, wound care nurse saw the patient today also. Again I briefly discussed the possibility of a colostomy with the patient but I do not feel that he understood exactly what I was explaining to him. I did talk extensively with the patient's brother who confirmed that the patient does not have a medical power of [place] attorney. #2 pressure injury to left lower back area, left upper buttocks, left sacral area-stage IV-wound care nurse will continue to see the patient, he does have a wound [facility], this will be placed tomorrow here in the hospital. I have elected not to have plastic surgery to see the patient at this time, patient will be seen by general surgery discussed the possibility of a colostomy for wound healing purposes. #3 severe caloric and protein malnutrition-patient will be seen by nutritional services, patient has refused placement of a PEG tube and the patient's brother states that he is against the patient having 1 placed, I did explain to the patient's brother that the patient does have severe malnutrition and he is currently on a pur[facility]ed [facility] the [facility]. 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-complicates care, medical course, recovery, and prognosis #6 cerebrovascular disease-complicates care, medical course, recovery, and prognosis, patient will remain on his present medications per prison #7 chronic debility due to severe medical problems including malnutrition, stage IV pressure injury of the left lower back/buttocks/sacral area-patient will be seen by PT and OT, he will need to return to a skilled care facility at the time of discharge #8 acute hypotension-probably secondary to volume depletion, patient will be given IV fluids, patient's blood pressure currently is stable #9 metabolic encephalopathy/cognitive dysfunction-secondary to chronic illness, complicates care, medical course, recovery, and prognosis #10 severe hearing loss-complicates care, medical course, recovery, and prognosis Total clinical time spent by myself addressing the patient's medical issues, reviewing all of his data, and collaborating with patient's care team: 75 minutes Charges/Coding Visit Charges Inpatient E&M: 28002 Init Hosp L3
[2022-11-03] MEDS: Potassium Chloride 20mEq/100mL 20 MEQ/100 ML IV.SOLN. 100 MEQ IV BOLUS (19:16)
[2022-11-03] MEDS: Ipratropium/Albuterol Sulfate 3 ML AMPUL.NEB INHALATION (19:54)
--- NOTE | 2022-11-03 21:07 | NURSING ---
Assisted JET WIPER w/ changing pt, incont of stool onto dressing. Old dressing removed. Sacral wound packed with sterile saline moistened kerlix, covered w/ gauze and ABDs.
[2022-11-03] MEDS: DAKIN'S SOL HALF STRENGTH (=0.25%) 1 APPLIC TOPICAL (21:13)
[2022-11-03] MEDS: Mirtazapine 15 MG Tablet 7.5 MG PO (21:25)
[2022-11-03] MEDS: Lisinopril 20 MG Tablet PO (21:25)
[2022-11-03] MEDS: Pantoprazole Sodium 40 MG Tablet PO (21:25)
[2022-11-03] MEDS: Heparin Injection (Vial) 5,000 UNIT/ML VIAL 5000 UNIT SC (21:25)
[2022-11-04] VITALS (8 sets, daily range): BP systolic 105–159; BP diastolic 57–75; PULSE 77–104; RESP 18–20; TEMP 36.4–36.6; O2SAT 93–100
[2022-11-04 04:49] LABS: Absolute Lymphocyte Count 1.08 X10^3/uL (0.83-4.51); Absolute Neutrophil Count 14.2 X10^3/uL (2.0-7.7); Basophil# 0.08 X10^3/uL; Basophil% 0.5 % (0-1); Eosinophil# 0.13 X10^3/uL; Eosinophils% 0.8 % (0-5); Hematocrit 27.2 % (40-54); Hemoglobin 8.6 g/dL (13.0-16.5); Lymphocyte # 1.08 X10^3/ul (0.83-4.51); Lymphocyte % 6.5 % (19-41); Mean Corp Hgb Conc 31.6 g/dL (32-36); Mean Corpuscular Hgb 28.3 pg (27.0-32.0); Mean Corpuscular Volume 89.5 fL (80-94); Mean Platelet Vol. 10.3 fl (6.2-12.0); Monocyte# 0.93 X10^3/uL; Monocyte% 5.6 % (0-10); NRBC Flagged by Analyzer 0 % (0-5); Neutrophil # 14.17 X10^3/uL (2.7-7.7); Neutrophil % 85.8 % (47-70); Platelet Count 420 K/mm3 (150-450); RBC Distribution Width CV 16.3 % (11.6-14.6); RBC Distribution Width SD 53.5 fl (35.1-43.9); Red Blood Count 3.04 M/mm3 (4.6-6.2); White Blood Count 16.5 K/mm3 (4.4-11.0)
[2022-11-04 05:29] LABS: Anion Gap 7 (5-15); BUN 18 mg/dL (7-18); BUN/Creat Ratio 46.8 RATIO (10-20); Chloride 108 mmol/L (98-107); Creatinine, Serum 0.38 mg/dL (0.70-1.30); EST Glomerular Filtration Rate 233 mL/min (>60); Est Glom Filt Rate - Afr Amer 282 mL/min (>60); Estimated Creatinine Clearance 58.85 ml/min; Glucose 111 mg/dL (74-106); Potassium 2.7 mmol/L (3.5-5.1); Sodium Level 140 mmol/L (136-145)
[2022-11-04] MEDS: Potassium Chloride 10mEq/100mL 10 MEQ/100 ML IV.SOLN. 100 MEQ IV BOLUS ×4 (06:42→10:13)
[2022-11-04] MEDS: Ipratropium/Albuterol Sulfate 3 ML AMPUL.NEB INHALATION ×3 (07:11→19:22)
--- NOTE | 2022-11-04 08:51 | CASEMGMT ---
Discharge Planning Updates sent to [facility] via [facility]. Nina Ramon
--- NOTE | 2022-11-04 08:54 | CASEMGMT ---
Discharge Planning [facility] responded via [facility] that patient can return. Nina Ramon
[2022-11-04] MEDS: Pantoprazole Sodium 40 MG Tablet PO ×2 (09:12→21:44)
[2022-11-04] MEDS: Ascorbic Acid 500 MG Tablet PO ×3 (09:12→16:45)
[2022-11-04] MEDS: Multivitamins,Ther W-Minerals Tablet 1 TABLET PO (09:12)
[2022-11-04] MEDS: Heparin Injection (Vial) 5,000 UNIT/ML VIAL 5000 UNIT SC ×2 (09:12→21:44)
[2022-11-04] MEDS: Sertraline 100 MG Tablet PO (09:22)
--- NOTE | 2022-11-04 09:45 | PCM.PN.SRG ---
Subjective Subjective Patient is a 72 y/o M I am following in conjunction with Dr. Womack for potential colostomy creation. Patient continues to be very lethargic and is not able to answer any questions appropriately. Patient is able to open his eyes for a brief period before going back to sleep. Objective Data Objective Data Vital Signs: Vital Signs Temp Pulse Resp BP Pulse Ox O2 Del Method O2 Flow Rate 98 F 104 H 20 H 118/74 96 Nasal Cannula 2 11/04/22 04:40 11/04/22 07:11 11/04/22 07:11 11/04/22 04:40 11/04/22 07:11 11/04/22 08:00 11/04/22 08:00 Oxygen Flow Rate (L/min) 2 Oxygen Delivery Method Nasal Cannula Weight: 141 lb 8.588 oz Body Mass Index (BMI) 19.7 Intake & Output: Intake and Output for Last 24 Hours 11/02/22 11/03/22 11/04/22 23:59 23:59 23:59 Intake Total 3395.33 / 3395.33 1205 / 1205 Output Total 450 / 750 900 / 900 Balance 2945.33 / 2645.33 305 / 305 Medical Nutrition Assessment Dietitian: Malnutrition Criteria Met Start: 11/03/22 14:09 Freq: Status: Active Protocol: Document 11/03/22 14:10 AG (Rec: 11/03/22 14:10 [id number]) Nutrition Malnutrition Evidence of Malnutrition Exists Yes Malnutrition (severe): Chronic Evidenced By Suboptimal Energy Intake ( Severe),Weight Loss (Severe) Clinical Problem Chronic Disease or Condition Related Malnutrition Etiology chronic, severe malnutrition related to inadequate energy intake Signs/Symptoms as evidenced by unintentional wt loss of 38.5#/21% x 8 months, estimated PO intake meeting <75% of estimated energy needs > 3 months Status Active Problem Recommendation Dietitian Recommendations/Changes regular diet as tolerated- texture/consistency per ICING MIXER; ensure plus high protein 120mL 4x/day w/ medpass and Alfonso BID for wound healing. Lab / Micro Data Result Diagrams: 11/04/22 03:51 11/04/22 03:51 Labs: Laboratory Results - last 24 hr 11/03/22 09:05: PT 15.9 H, INR 1.3, APTT 39.3 H 11/03/22 09:05: Sodium 137, Potassium 3.1 L, Chloride 102, Carbon Dioxide 27.0, Anion Gap 8, BUN 23 H, Creatinine 0.70, Estim Creat Clear Calc 62.88, Est GFR (MDRD) Af Amer 143, Est GFR (MDRD) Non-Af 118, BUN/Creatinine Ratio 33.0 H, Glucose 126 H, Calcium 8.5, Total Bilirubin 0.40, AST 17, ALT 19, Alkaline Phosphatase 106, Troponin I High Sens 12, Total Protein 6.8, Albumin 1.9 L, Globulin 4.9 H, Albumin/Globulin Ratio 0.4 L 11/03/22 09:05: Blood Type O POSITIVE, Antibody Screen NEGATIVE 11/03/22 09:25: Lactic Acid 1.3 11/03/22 11:10: Urine Color Yellow, Urine Clarity Clear, Urine pH 6.0, Ur Specific [place] 1.010, Urine Protein 30 H, Urine Glucose (UA) Normal, Urine Ketones Negative, Urine Occult Blood Negative, Urine Nitrite Negative, Urine Bilirubin Negative, Urine Urobilinogen Normal, Ur Leukocyte Esterase 100 H, Urine RBC 0 SEEN, Urine WBC 5-10 SEEN, Ur Squamous Epith Cells 0-5 SEEN, Urine Bacteria LPTA, Urine Mucus 0 SEEN 11/04/22 03:51: WBC 16.5 H, RBC 3.04 L, Hgb 8.6 L, Hct 27.2 L, MCV 89.5, MCH 28.3, MCHC 31.6 L, RDW Std Deviation 53.5 H, RDW Coeff of Luis 16.3 H, Plt Count 420, MPV 10.3, Immature Gran % (Auto) 0.800, Neut % (Auto) 85.8 H, Lymph % (Auto) 6.5 L, [place] % (Auto) 5.6, Eos % (Auto) 0.8, Baso % (Auto) 0.5, Absolute Neuts (auto) 14.2 H, Absolute Lymphs (auto) 1.08, Nucleated RBC % 0 11/04/22 03:51: Sodium 140, Potassium 2.7 L*, Chloride 108 H, Carbon Dioxide 25.0, Anion Gap 7, BUN 18, Creatinine 0.38 L, Estim Creat Clear Calc 58.85, Est GFR (MDRD) Af Amer 282, Est GFR (MDRD) Non-Af 233, BUN/Creatinine Ratio 46.8 H, Glucose 111 H, Calcium 8.0 L Micro: Microbiology 11/03/22 09:05 Stool Stool Occult Blood (VIMAL) - Final Occult Blood Positive Radiography Diagnostic Testing: Radiology Impression Abdomen/Pelvis CT 11/03/22 09:06 IMPRESSION: Bibasilar pulmonary infiltrates. Extensive atherosclerotic calcification of the abdominal aorta and the major branches. Large ulcerated soft tissue lesion overlying the left hemisacrum as described although no definite bony involvement is seen. Abnormal appearance in the partial collapse of the T11 and T12 vertebrae. Electronically Signed: Reymundo Collier MD at 10:48 EDT , Foot X-Ray 11/03/22 09:07 IMPRESSION: Osteopenia in the head of the fifth metatarsal. Early osteomyelitis. Marked degree of degenerative changes of the first metatarsal phalangeal joint. 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 This has progressed as compared to prior study. Electronically Signed: Reymundo Collier MD at 10:58 EDT , Chest X-Ray 11/03/22 10:25 IMPRESSION: Mild increased markings at the lung bases with blunting of the right costophrenic angle. Electronically Signed: Reymundo Collier MD at 10:49 EDT Reading Location ID and State: [id number] / [facility] , Service support , Assessment & Plan Assessment/Plan (1) Skin ulcer of buttock with necrosis of muscle: PLAN: Patient continues to be obtunded laying in bed. Patient is not able to participate in any conversation or medical decision making in regards to a colostomy creation at this time. According to the patient's chart, he does not have a POA to assist with medical decision making. At this time, patient is not medically stable to undergo a surgical procedure. We will continue to revisit this procedure once the patient becomes more alert. Charges/Coding Visit Charges Inpatient E&M: 50325 Subs Hosp L1
[2022-11-04] MEDS: amLODIPine 10 MG Tablet PO (10:46)
[2022-11-04] MEDS: 0.9% Normal Saline 1,000 ML 100 ML IV ×2 (10:47→21:43)
[2022-11-04] MEDS: DAKIN'S SOL HALF STRENGTH (=0.25%) 1 APPLIC TOPICAL (10:47)
[2022-11-04] MEDS: Ferrous Sulfate 325 MG Tablet PO ×2 (11:58→16:45)
--- NOTE | 2022-11-04 13:36 | PCM.CONS.GEN ---
Assessment & Plan Assessment/Plan (1) Osteomyelitis, pelvis: PLAN: sacral osteo with coNS bacteremia - Taken to OR 10/15 for I&D of osteo by Dr. Winkler.? That admit, pt not interested in diverting ostomy.? Surg cx with VRE and MRSA, 10/19/22 changed vanc to dapto and continued unasyn. Discharged on 6 weeks iv dapto, stop date 11/30/22, with 2 weeks po augmentin at discharge. Cdiff (+) but toxin neg.? Having melena with recent duodenal ulcer.? Low suspicion for active cdiff at this time, but will monitor while on abx here.? Now with hypotension and altered mental status. Wound doing ok. D/w wound care. Surgery consulted to discuss ostomy again with him. Cont dapto/zosyn for now. Will follow, thank you, d/w Dr. Monae HPI Consult Data Date of Consult: 11/04/22 HPI Narrative Reason for Consultation: osteo HPI Narrative: NIKOLAS ADAMS, is a 72 M with recent admit for sacral osteo. Discharged to [facility] on dapto via picc and po augmentin. Returned 11/03 with altered mental status and hypotension. Wound doing ok per nursing. Admitted on vanc/zosyn. Pt lethargic today, unable to provide history or ROS. 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 Bilateral carotid artery stenosis Cervical spondylosis Cervical stenosis of spinal canal Cognitive dysfunction Decubitus ulcer, stage 4 with infection Dependent on walker for ambulation Dysphagia Essential (primary) hypertension Glucose intolerance (impaired glucose tolerance) History of alcohol abuse History of stroke (08/01/20) Hyperlipidemia Hyponatremia Mass of parotid gland MRSA (methicillin resistant Staphylococcus aureus) infection Non-pressure chronic ulcer of other part of right foot with necrosis of muscle Osteomyelitis, chronic, pelvis or thigh Osteomyelitis, pelvis Peripheral vascular disease, unspecified Peripheral vascular occlusive disease Presbycusis of both ears Severe malnutrition Skin necrosis Skin ulcer of buttock with necrosis of muscle Smoker 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 Tobacco dependence due to cigarettes Home Medications amlodipine 10 mg tablet 10 mg PO DAILY #30 tabs 08/19/20 [Rx Last Taken 11/02/22] atorvastatin 40 mg tablet 40 mg PO QHS #30 tabs 08/19/20 [Rx Last Taken 10/27/22] lisinopril 20 mg tablet 20 mg PO QHS 09/07/22 [History Last Taken 11/02/22] pantoprazole 40 mg tablet,delayed release 40 mg PO BID 09/07/22 [History Last Taken 11/02/22] sertraline 100 mg tablet 100 mg PO DAILY 09/07/22 [History Last Taken 11/02/22] tamsulosin 0.4 mg capsule 0.4 mg PO DAILY 09/07/22 [History Last Taken 11/02/22] ascorbic acid (vitamin C) 500 mg tablet 500 mg PO TIDCM #0 tabs 09/10/22 [Rx Last Taken 11/02/22] bumetanide 0.5 mg tablet 0.5 mg PO BID #60 tabs 09/10/22 [Rx Last Taken 11/02/22] ferrous sulfate 300 mg (60 mg iron)/5 mL oral liquid 300 mg (5 mL) PO TIDCM #0 mL 09/10/22 [Rx Last Taken 11/02/22] ipratropium 0.5 mg-albuterol 3 mg (2.5 mg base)/3 mL nebulization soln 3 ml inhalation Q4HWA.RT #0 mL 09/10/22 [Rx Last Taken 11/03/22] cholecalciferol (vitamin D3) 50 mcg (2,000 unit) capsule 50 mcg PO DAILY 09/22/22 [History Last Taken 11/02/22] amoxicillin 875 mg-potassium clavulanate 125 mg tablet 1 tab PO BID #30 tabs 10/20/22 [Rx Last Taken 11/02/22] daptomycin 500 mg intravenous solution 500 mg IV DAILY #40 ea 10/20/22 [Rx Last Taken 11/02/22] guaifenesin 600 mg tablet, extended release 12 hr (Mucinex) 1,200 mg PO BID CONGESTION 11/03/22 [History Last Taken 11/02/22] loratadine 10 mg tablet 10 mg PO DAILY ALLERGIES 11/03/22 [History Last Taken 11/02/22] mirtazapine 15 mg tablet (Remeron) 7.5 mg PO QHS APPETITTE 11/03/22 [History Last Taken 11/02/22] multivit,stress formula-zinc tablet 1 tab PO DAILY SKIN INTERVENTION 11/03/22 [History Last Taken 11/02/22] multivit,tx with iron 27 ga-ztcxiof-zuowv acid 0.4 mg-minerals tablet 1 tab PO DAILY SUPPLEMENT 11/03/22 [History Last Taken 11/02/22] scopolamine base 1 mg over 3 days transdermal patch 1 patch transdermal Q3D SECREATION 11/03/22 [History Last Taken 11/02/22] sodium hypochlorite 0.125 % solution (Dakin's Solution) 1 applic topical Q12H ULCER 11/03/22 [History Last Taken 11/02/22] Allergy/AdvReac Type Severity Reaction Status Date / Time No Known Allergies Allergy Verified 11/03/22 08:40 Family History Father Dementia Mother Dementia Social History household members: none Smoking Status: Former smoker Tobacco: How many years used: 40 Electronic Cigarette Use: with nicotine second hand exposure: Yes alcohol intake: former year quit: 2020 substance use type: does not use caffeine: Yes (4 cups daily) Type: coffee seatbelt use: sometimes Physical Exam Const no apparent distress General Appearance: lethargic HEENT normocephalic and head/scalp atraumatic Eyes PERRL Neck supple and No nodes Resp normal air movement and clear to auscultation bilaterally Cardio regular rate and regular rhythm Heart Sounds: murmur GI soft to palpation, non-tender and non-distended Extremity General Extremity: Negative for edema Skin Skin Narrative: Reviewed wound photos Medical Records Data Medical Nutrition Assessment Dietitian: Malnutrition Criteria Met Start: 11/03/22 14:09 Freq: Status: Active Protocol: Document 11/03/22 14:10 AG (Rec: 11/03/22 14:10 [id number]) Nutrition Malnutrition Evidence of Malnutrition Exists Yes Malnutrition (severe): Chronic Evidenced By Suboptimal Energy Intake ( Severe),Weight Loss (Severe) Clinical Problem Chronic Disease or Condition Related Malnutrition Etiology chronic, severe malnutrition related to inadequate energy intake Signs/Symptoms as evidenced by unintentional wt loss of 38.5#/21% x 8 months, estimated PO intake meeting <75% of estimated energy needs > 3 months Status Active Problem Recommendation Dietitian Recommendations/Changes regular diet as tolerated- texture/consistency per [employer]; ensure plus high protein 120mL 4x/day w/ medpass and Alfonso BID for wound healing. Lab / Micro Data Attestation: I reviewed the patient's lab results. Result Diagrams: 11/04/22 03:51 11/04/22 03:51 Labs: Laboratory Results - last 24 hr 11/04/22 03:51: WBC 16.5 H, RBC 3.04 L, Hgb 8.6 L, Hct 27.2 L, MCV 89.5, MCH 28.3, MCHC 31.6 L, RDW Std Deviation 53.5 H, RDW Coeff of Luis 16.3 H, Plt Count 420, MPV 10.3, Immature Gran % (Auto) 0.800, Neut % (Auto) 85.8 H, Lymph % (Auto) 6.5 L, Dickinson % (Auto) 5.6, Eos % (Auto) 0.8, Baso % (Auto) 0.5, Absolute Neuts (auto) 14.2 H, Absolute Lymphs (auto) 1.08, Nucleated RBC % 0 11/04/22 03:51: Sodium 140, Potassium 2.7 L*, Chloride 108 H, Carbon Dioxide 25.0, Anion Gap 7, BUN 18, Creatinine 0.38 L, Estim Creat Clear Calc 58.85, Est GFR (MDRD) Af Amer 282, Est GFR (MDRD) Non-Af 233, BUN/Creatinine Ratio 46.8 H, Glucose 111 H, Calcium 8.0 L Micro: Microbiology 11/03/22 11:10 Urine Catheter - Soto Urine Culture - Preliminary Culture exhibits no growth. 11/03/22 09:05 Stool Stool Occult Blood (VIMAL) - Final Occult Blood Positive
--- NOTE | 2022-11-04 15:05 | PCM.PN.HOSP ---
Reason for Visit Reason for Visit: Diagnoses Sepsis, unspecified organism (11/03/22) Unspecified severe protein-calorie malnutrition (11/03/22) Non-pressure chronic ulcer of buttock with necrosis of muscle (11/03/22) Osteomyelitis, unspecified (11/03/22) Abnormal weight loss (11/03/22) Carrier of other specified bacterial diseases (11/03/22) Subjective Subjective Patient was seen and examined today, he is somnolent, he does awaken to verbal and tactile stimuli, he is confused at times. Extensively with his [id number] who is a registered nurse, she used to be a hospice nurse, she understands that the patient is malnourished and would benefit from a feeding tube and colostomy for wound healing. She will try to talk with the patient concerning this and see if he will consent to the procedures. Objective Data Objective Data Vital Signs: Vital Signs Temp Pulse Resp BP Pulse Ox O2 Del Method O2 Flow Rate 97.6 F L 99 20 H 159/75 H 100 Nasal Cannula 2 11/04/22 10:11 11/04/22 12:16 11/04/22 12:16 11/04/22 10:11 11/04/22 10:11 11/04/22 13:57 11/04/22 13:57 Oxygen Flow Rate (L/min) 2 Oxygen Delivery Method Nasal Cannula Weight: 64.2 kg Body Mass Index (BMI) 19.7 Intake & Output: Intake and Output for Last 24 Hours 11/02/22 11/03/22 11/04/22 23:59 23:59 23:59 Intake Total 3395.33 / 3395.33 1755 / 1755 Output Total 450 / 750 1400 / 1400 Balance 2945.33 / 2645.33 355 / 355 Medical Nutrition Assessment Dietitian: Malnutrition Criteria Met Start: 11/03/22 14:09 Freq: Status: Active Protocol: Document 11/03/22 14:10 AG (Rec: 11/03/22 14:10 AG [id number]) Nutrition Malnutrition Evidence of Malnutrition Exists Yes Malnutrition (severe): Chronic Evidenced By Suboptimal Energy Intake ( Severe),Weight Loss (Severe) Clinical Problem Chronic Disease or Condition Related Malnutrition Etiology chronic, severe malnutrition related to inadequate energy intake Signs/Symptoms as evidenced by unintentional wt loss of 38.5#/21% x 8 months, estimated PO intake meeting <75% of estimated energy needs > 3 months Status Active Problem Recommendation Dietitian Recommendations/Changes regular diet as tolerated- texture/consistency per [employer]; ensure plus high protein 120mL 4x/day w/ medpass and Alfonso BID for wound healing. Lab / Micro Data Result Diagrams: 11/04/22 03:51 11/04/22 03:51 Labs: Laboratory Results - last 24 hr 11/04/22 03:51: WBC 16.5 H, RBC 3.04 L, Hgb 8.6 L, Hct 27.2 L, MCV 89.5, MCH 28.3, MCHC 31.6 L, RDW Std Deviation 53.5 H, RDW Coeff of Luis 16.3 H, Plt Count 420, MPV 10.3, Immature Gran % (Auto) 0.800, Neut % (Auto) 85.8 H, Lymph % (Auto) 6.5 L, Tripp % (Auto) 5.6, Eos % (Auto) 0.8, Baso % (Auto) 0.5, Absolute Neuts (auto) 14.2 H, Absolute Lymphs (auto) 1.08, Nucleated RBC % 0 11/04/22 03:51: Sodium 140, Potassium 2.7 L*, Chloride 108 H, Carbon Dioxide 25.0, Anion Gap 7, BUN 18, Creatinine 0.38 L, Estim Creat Clear Calc 58.85, Est GFR (MDRD) Af Amer 282, Est GFR (MDRD) Non-Af 233, BUN/Creatinine Ratio 46.8 H, Glucose 111 H, Calcium 8.0 L Micro: Microbiology 11/03/22 11:10 Urine Catheter - Soto Urine Culture - Preliminary Culture exhibits no growth. 11/03/22 09:05 Stool Stool Occult Blood (VIMAL) - Final Occult Blood Positive Physical Exam Narrative Patient appears older than his stated age General Appearance: cooperative and well developed Orientation / Consciousness: awake, oriented to person and oriented to place HEENT normocephalic, head/scalp atraumatic and moist oral mucous membranes HEENT Narrative: Patient is hard of hearing Eyes PERRL, EOMs intact bilaterally and conjunctivae normal Neck supple, no JVD, thyroid normal and no carotid bruits General: trachea midline Resp normal respiratory effort, no retractions, no use of accessory muscles and clear to auscultation bilaterally Auscultation: Negative for rales, rhonchi or wheezes Cardio regular rate, regular rhythm, S1 normal heart sound, S2 normal heart sound, no murmurs, no rub and no gallops GI normal to inspection, nondistended, normoactive bowel sounds, soft to palpation, non-tender and non-distended Extremity Extremity Narrative: There is evidence of black eschars over the patient's feet bilaterally worse on the right especially on the dorsal aspect of the right foot, areas of dry gangrene are noted over the patient's toes bilaterally, there is a large open area over the patient's right lateral malleolus Skin Skin Narrative: There is a large defect in the skin over the left lower back area and left sacral/buttocks area, this defect is full-thickness of the skin and the patient's sacrum is visible at the bottom of the wound.? This wound is approximately 8-10? cm in diameter, there is an area of redness around the wound covering the left upper buttocks and right upper buttocks area as well as the mid lumbar area Neuro CN's II-XII intact bilaterally, no focal motor deficits and no sensory deficits noted Sensorium / Orientation: awake, alert, oriented to person and oriented to place Speech: speech normal Psych Psych Narrative: Patient is confused at times during my examination, he is difficult to communicate with due to severe hearing loss Assessment & Plan Assessment/Plan (1) Sepsis: PLAN: Plan 1. Acute sepsis secondary to deep wound infection of the left lower back and sacral/buttocks area with VRE and MRSA-I talked with infectious diseases today, they agree with the present antibiotics daptomycin and Zosyn IV. Infectious diseases will follow. #2 pressure injury to left lower back area, left upper buttocks, left sacral area-stage IV-wound care nurse will continue to see the patient, he does have a wound VAC in place today placed by the wound nurse #3 severe caloric and protein malnutrition-patient will be seen by nutritional services, patient has refused placement of a PEG tube in the past, patient's [id number] and brother will talk with him concerning the need for a PEG tube to improve his nutritional status. 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-complicates care, medical course, recovery, and prognosis #6 cerebrovascular disease-complicates care, medical course, recovery, and prognosis, patient will remain on his present medications per custodial #7 chronic debility due to severe medical problems including malnutrition, stage IV pressure injury of the left lower back/buttocks/sacral area-patient will be seen by PT and OT, he will need to return to a skilled care facility at the time of discharge #8 acute hypotension-probably secondary to volume depletion, patient will be given IV fluids, patient's blood pressure currently is stable #9 metabolic encephalopathy/cognitive dysfunction-secondary to chronic illness, complicates care, medical course, recovery, and prognosis #10 severe hearing loss-complicates care, medical course, recovery, and prognosis Total clinical time spent by myself addressing the patient's medical issues, reviewing all of his data, and collaborating with patient's care team: 37 minutes Charges/Coding Visit Charges Inpatient E&M: 10799 Subs Hosp L2
[2022-11-04] MEDS: Tamsulosin HCl 0.4 MG Capsule PO (16:45)
[2022-11-04] MEDS: Atorvastatin Calcium 40 MG Tablet PO (21:44)
[2022-11-04] MEDS: Mirtazapine 15 MG Tablet 7.5 MG PO (21:44)
[2022-11-04] MEDS: Lisinopril 20 MG Tablet PO (21:44)
[2022-11-05] VITALS (8 sets, daily range): BP systolic 114–152; BP diastolic 70–80; PULSE 83–98; RESP 16–20; TEMP 36.4–36.6; O2SAT 93–95
[2022-11-05 04:55] LABS: Absolute Lymphocyte Count 1.24 X10^3/uL (0.83-4.51); Absolute Neutrophil Count 10.1 X10^3/uL (2.0-7.7); Basophil# 0.07 X10^3/uL; Basophil% 0.6 % (0-1); Eosinophil# 0.28 X10^3/uL; Eosinophils% 2.2 % (0-5); Hematocrit 25.6 % (40-54); Hemoglobin 8.2 g/dL (13.0-16.5); Lymphocyte # 1.24 X10^3/ul (0.83-4.51); Lymphocyte % 9.8 % (19-41); Mean Corpuscular Hgb 28.6 pg (27.0-32.0); Mean Corpuscular Volume 89.2 fL (80-94); Monocyte# 0.84 X10^3/uL; Monocyte% 6.6 % (0-10); NRBC Flagged by Analyzer 0 % (0-5); Neutrophil # 10.14 X10^3/uL (2.7-7.7); Neutrophil % 80.2 % (47-70); Platelet Count 413 K/mm3 (150-450); RBC Distribution Width CV 16.1 % (11.6-14.6); RBC Distribution Width SD 52.7 fl (35.1-43.9); Red Blood Count 2.87 M/mm3 (4.6-6.2); White Blood Count 12.7 K/mm3 (4.4-11.0)
[2022-11-05 05:44] LABS: Anion Gap 7 (5-15); BUN 10 mg/dL (7-18); BUN/Creat Ratio 25.9 RATIO (10-20); Calcium,Total 7.8 mg/dL (8.5-10.1); Chloride 110 mmol/L (98-107); Creatinine, Serum 0.39 mg/dL (0.70-1.30); EST Glomerular Filtration Rate 233 mL/min (>60); Est Glom Filt Rate - Afr Amer 282 mL/min (>60); Estimated Creatinine Clearance 58.85 ml/min; Glucose 97 mg/dL (74-106); Potassium 2.5 mmol/L (3.5-5.1); Sodium Level 142 mmol/L (136-145)
[2022-11-05] MEDS: 0.9% Normal Saline 1,000 ML 100 ML IV (05:56)
[2022-11-05] MEDS: Ipratropium/Albuterol Sulfate 3 ML AMPUL.NEB INHALATION ×2 (07:57→20:58)
[2022-11-05] MEDS: Potassium Chloride 10mEq/100mL 10 MEQ/100 ML IV.SOLN. 100 MEQ IV BOLUS ×4 (09:22→12:55)
--- NOTE | 2022-11-05 09:36 | CASEMGMT ---
Discharge Planning [facility] notified of return today. Nina Ramon
[2022-11-05] MEDS: Heparin Injection (Vial) 5,000 UNIT/ML VIAL 5000 UNIT SC ×2 (09:48→22:48)
[2022-11-05] MEDS: Juven (unflavored) Packet 1 PACKET PO (09:48)
[2022-11-05] MEDS: Multivitamins,Ther W-Minerals Tablet 1 TABLET PO (09:48)
[2022-11-05] MEDS: Sertraline 100 MG Tablet PO (09:48)
[2022-11-05] MEDS: Ascorbic Acid 500 MG Tablet PO ×2 (09:49→18:03)
[2022-11-05] MEDS: amLODIPine 10 MG Tablet PO (09:49)
[2022-11-05] MEDS: Pantoprazole Sodium 40 MG Tablet PO ×2 (09:49→22:48)
--- NOTE | 2022-11-05 11:04 | PCM.PN.ID ---
Physical Exam Narrative Feeling better, no fever Const alert and no apparent distress General Appearance: cooperative Resp normal air movement and clear to auscultation bilaterally Cardio regular rate and regular rhythm GI soft to palpation, non-tender and non-distended Skin Skin Narrative: no new rash ID ID: Route of nutrition/ use of supplements: [] Nutritional Intake: [] IV Site: [] Soto Catheter: [] Assessment & Plan Assessment/Plan (1) Osteomyelitis, pelvis: PLAN: sacral osteo with coNS bacteremia - Taken to OR 10/15 for I&D of osteo by Dr. Winkler.? That admit, pt not interested in diverting ostomy.? Surg cx with VRE and MRSA, 10/19/22 changed vanc to dapto and continued unasyn. Discharged on 6 weeks iv dapto, stop date 11/30/22, with 2 weeks po augmentin at discharge. Cdiff (+) but toxin neg.? Having melena with recent duodenal ulcer.? Low suspicion for active cdiff at this time, but will monitor while on abx here.? Sx much improved. Wound stable. Ok for back to [facility] on dapto. Will follow, d/w Dr. Monae
[2022-11-05] MEDS: Tamsulosin HCl 0.4 MG Capsule PO (18:03)
[2022-11-05] MEDS: Ferrous Sulfate 325 MG Tablet PO (18:03)
--- NOTE | 2022-11-05 18:27 | EX.PCM.CON.G ---
HPI Consult Data Date of Consult: 11/05/22 HPI Narrative Reason for Consultation: dysphagia HPI Narrative: NIKOLAS ADAMS, is a 72 M who was admitted on 10/07/22 when he was found to have a giant black stool and was [facility]aph[facility] at [facility].? He was initially treated in the ICU until medically stabilized.? He has been having diarrhea and is thought to maybe having Cdiff. ? Upon admission, it was noted he had an existing left sacral pressure sore with some tissue necrosis.? Over the ensuing several days, the left sacral pressure sore worsened as there has been stool contamination from his diarrhea.? Wound culture showed Streptococcus pyogenes and MRSA.? Urine culture showed C. albicans and MRSA.? Blood culture showed Staphylococcus hominis hominis (Methicillin resistant).? He is being treated with Vancomycin and Zosyn. He has being seen by infectious disease for osteomyelitis. I was asked to see him due to progressive dysphagia with aspiration risk and need for nutrition with PEG tube. 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 Bilateral carotid artery stenosis Cervical spondylosis Cervical stenosis of spinal canal Cognitive dysfunction Decubitus ulcer, stage 4 with infection Dependent on walker for ambulation Dysphagia Essential (primary) hypertension Glucose intolerance (impaired glucose tolerance) History of alcohol abuse History of stroke (08/01/20) Hyperlipidemia Hyponatremia Mass of parotid gland MRSA (methicillin resistant Staphylococcus aureus) infection Non-pressure chronic ulcer of other part of right foot with necrosis of muscle Osteomyelitis, chronic, pelvis or thigh Osteomyelitis, pelvis Peripheral vascular disease, unspecified Peripheral vascular occlusive disease Presbycusis of both ears Severe malnutrition Skin necrosis Skin ulcer of buttock with necrosis of muscle Smoker 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 Tobacco dependence due to cigarettes Home Medications amlodipine 10 mg tablet 10 mg PO DAILY #30 tabs 08/19/20 [Rx Last Taken 11/02/22] atorvastatin 40 mg tablet 40 mg PO QHS #30 tabs 08/19/20 [Rx Last Taken 10/27/22] lisinopril 20 mg tablet 20 mg PO QHS 09/07/22 [History Last Taken 11/02/22] pantoprazole 40 mg tablet,delayed release 40 mg PO BID 09/07/22 [History Last Taken 11/02/22] sertraline 100 mg tablet 100 mg PO DAILY 09/07/22 [History Last Taken 11/02/22] tamsulosin 0.4 mg capsule 0.4 mg PO DAILY 09/07/22 [History Last Taken 11/02/22] ascorbic acid (vitamin C) 500 mg tablet 500 mg PO TIDCM #0 tabs 09/10/22 [Rx Last Taken 11/02/22] bumetanide 0.5 mg tablet 0.5 mg PO BID #60 tabs 09/10/22 [Rx Last Taken 11/02/22] ferrous sulfate 300 mg (60 mg iron)/5 mL oral liquid 300 mg (5 mL) PO TIDCM #0 mL 09/10/22 [Rx Last Taken 11/02/22] ipratropium 0.5 mg-albuterol 3 mg (2.5 mg base)/3 mL nebulization soln 3 ml inhalation Q4HWA.RT #0 mL 09/10/22 [Rx Last Taken 11/03/22] cholecalciferol (vitamin D3) 50 mcg (2,000 unit) capsule 50 mcg PO DAILY 09/22/22 [History Last Taken 11/02/22] daptomycin 500 mg intravenous solution 500 mg IV DAILY #40 ea 10/20/22 [Rx Last Taken 11/02/22] guaifenesin 600 mg tablet, extended release 12 hr (Mucinex) 1,200 mg PO BID CONGESTION 11/03/22 [History Last Taken 11/02/22] loratadine 10 mg tablet 10 mg PO DAILY ALLERGIES 11/03/22 [History Last Taken 11/02/22] mirtazapine 15 mg tablet (Remeron) 7.5 mg PO QHS APPETITTE 11/03/22 [History Last Taken 11/02/22] multivit,stress formula-zinc tablet 1 tab PO DAILY SKIN INTERVENTION 11/03/22 [History Last Taken 11/02/22] multivit,tx with iron 27 gb-nitsvkx-deyof acid 0.4 mg-minerals tablet 1 tab PO DAILY SUPPLEMENT 11/03/22 [History Last Taken 11/02/22] scopolamine base 1 mg over 3 days transdermal patch 1 patch transdermal Q3D SECREATION 11/03/22 [History Last Taken 11/02/22] sodium hypochlorite 0.125 % solution (Dakin's Solution) 1 applic topical Q12H ULCER 11/03/22 [History Last Taken 11/02/22] Allergy/AdvReac Type Severity Reaction Status Date / Time No Known Allergies Allergy Verified 11/03/22 08:40 Family History Father Dementia Mother Dementia Social History household members: none Smoking Status: Former smoker Tobacco: How many years used: 40 Electronic Cigarette Use: with nicotine second hand exposure: Yes alcohol intake: former year quit: 2020 substance use type: does not use caffeine: Yes (4 cups daily) Type: coffee seatbelt use: sometimes ROS ROS Narrative View of systems was unobtainable due to patient's hearing loss and intermittent episodes of confusion during my examination. Patient's answers were not consistent. Physical Exam Narrative Patient appears older than his stated age General Appearance: cooperative and well developed Orientation / Consciousness: awake, oriented to person and oriented to place HEENT normocephalic, head/scalp atraumatic and moist oral mucous membranes HEENT Narrative: Patient is hard of hearing Eyes PERRL, EOMs intact bilaterally and conjunctivae normal Neck supple, no JVD, thyroid normal and no carotid bruits General: trachea midline Resp normal respiratory effort, no retractions, no use of accessory muscles and clear to auscultation bilaterally Auscultation: Negative for rales, rhonchi or wheezes Cardio regular rate, regular rhythm, S1 normal heart sound, S2 normal heart sound, no murmurs, no rub and no gallops GI normal to inspection, nondistended, normoactive bowel sounds, soft to palpation, non-tender and non-distended Extremity Extremity Narrative: There is evidence of black eschars over the patient's feet bilaterally worse on the right especially on the dorsal aspect of the right foot, areas of dry gangrene are noted over the patient's toes bilaterally, there is a large open area over the patient's right lateral malleolus Skin Skin Narrative: There is a large defect in the skin over the left lower back area and left sacral/buttocks area, this defect is full-thickness of the skin and the patient's sacrum is visible at the bottom of the wound.? This wound is approximately 8-10? cm in diameter, there is an area of redness around the wound covering the left upper buttocks and right upper buttocks area as well as the mid lumbar area Neuro CN's II-XII intact bilaterally, no focal motor deficits and no sensory deficits noted Sensorium / Orientation: awake, alert, oriented to person and oriented to place Speech: speech normal Psych Psych Narrative: Patient is confused at times during my examination, he is difficult to communicate with due to severe hearing loss Medical Records Data Medical Nutrition Assessment Dietitian: Malnutrition Criteria Met Start: 11/03/22 14:09 Freq: Status: Active Protocol: Document 11/06/22 14:58 AG (Rec: 11/06/22 14:58 AG [id number]) Nutrition Malnutrition Evidence of Malnutrition Exists Yes Malnutrition (severe): Chronic Evidenced By Suboptimal Energy Intake ( Severe),Weight Loss (Severe) Clinical Problem Chronic Disease or Condition Related Malnutrition Etiology chronic, severe malnutrition related to inadequate energy intake Signs/Symptoms as evidenced by unintentional wt loss of 38.5#/21% x 8 months, estimated PO intake meeting <75% of estimated energy needs > 3 months Status Active Problem Recommendation Dietitian Recommendations/Changes 1) If PEG placed- Jevity 1.5 300mL bolus 5x/day w/ 80mL H2O flush before and after each bolus to provide 2250 calories , 95.7g protein, and 1940mL total fluid/day. Would start w / 150mL for first bolus, increase to 225mL for second bolus as tolerated and then to goal volume of 300mL. 2) Alfonso BID via PEG for wound healing. 3) Close monitoring of electrolytes, daily wts as enteral nutrition provided d/t risk for refeeding syndrome. 4) If appropriate for PO intake, recommend regular diet as tolerated- texture/ consistency per TABLEAU DEVELOPER Lab / Micro Data Result Diagrams: 11/06/22 06:30 11/06/22 06:30 Labs: Laboratory Results - last 24 hr 11/06/22 06:30: WBC 12.4 H, RBC 3.16 L, Hgb 9.1 L, Hct 28.3 L, MCV 89.6, MCH 28.8, MCHC 32.2, RDW Std Deviation 54.1 H, RDW Coeff of Luis 16.2 H, Plt Count 421, MPV 9.7, Immature Gran % (Auto) 0.500, Neut % (Auto) 79.9 H, Lymph % (Auto) 10.7 L, Faulk % (Auto) 7.0, Eos % (Auto) 1.3, Baso % (Auto) 0.6, Absolute Neuts (auto) 9.9 H, Absolute Lymphs (auto) 1.32, Nucleated RBC % 0 11/06/22 06:30: Sodium 141, Potassium 2.7 L*, Chloride 109 H, Carbon Dioxide 23.0, Anion Gap 9, BUN 6 L, Creatinine 0.34 L, Estim Creat Clear Calc 58.85, Est GFR (MDRD) Af Amer 328, Est GFR (MDRD) Non-Af 271, BUN/Creatinine Ratio 17.8, Glucose 73 L, Calcium 8.1 L 11/06/22 06:30: Potassium 2.8 L, Magnesium 0.8 L* Assessment & Plan Assessment/Plan (1) Esophageal dysphagia: (2) Severe malnutrition: PLAN: Plan We will do an EGD to evaluate his upper GI tract. He was explained alternatives, risk, benefits including not withstanding bleeding, infection, sepsis, perforation, need for emergent surgery . He will have an ASA of 3. We we will all so we will place a PEG tube during the procedure. Charges/Coding Visit Charges Inpatient E&M: 81351 Init Hosp L2
--- NOTE | 2022-11-05 18:40 | PCM.PN.HOSP ---
Reason for Visit Reason for Visit: Diagnoses Sepsis, unspecified organism (11/03/22) Unspecified severe protein-calorie malnutrition (11/03/22) Non-pressure chronic ulcer of buttock with necrosis of muscle (11/03/22) Osteomyelitis, unspecified (11/03/22) Abnormal weight loss (11/03/22) Carrier of other specified bacterial diseases (11/03/22) Subjective Subjective Patient was seen and examined today, I talked with him for a few minutes concerning the need for PEG tube, he adamantly refused to have a PEG tube placed, I have made the decision today that [facility]-he appears stable at this time but I am unable to have speech therapy at this late time to evaluate the patient for safety of swallowing. According to nursing, patient eats and then immediately suctions himself. I would feel more comfortable if speech therapy evaluated the patient again tomorrow before I sent him to the [facility]iary facility. I briefly talked with infectious diseases about my plans to send the patient back to the nursing facility and ID was okay with this and recommended daptomycin only when he goes back to the extended care facility. Objective Data Objective Data Vital Signs: Vital Signs Temp Pulse Resp BP Pulse Ox O2 Del Method O2 Flow Rate 97.8 F 90 16 127/80 H 93 Room Air 2 11/05/22 15:00 11/05/22 15:00 11/05/22 15:00 11/05/22 15:00 11/05/22 15:00 11/05/22 15:00 11/05/22 09:30 Oxygen Flow Rate (L/min) 2 Oxygen Delivery Method Room Air Weight: 64.2 kg Body Mass Index (BMI) 19.7 Intake & Output: Intake and Output for Last 24 Hours 11/03/22 11/04/22 11/05/22 23:59 23:59 23:59 Intake Total 3395.33 / 3395.33 3285 / 3405 1621.67 / 1621.67 Output Total 450 / 750 1750 / 1950 1550 / 1550 Balance 2945.33 / 2645.33 1535 / 1455 71.67 / 71.67 Medical Nutrition Assessment Dietitian: Malnutrition Criteria Met Start: 11/03/22 14:09 Freq: Status: Active Protocol: Document 11/03/22 14:10 AG (Rec: 11/03/22 14:10 [id number]) Nutrition Malnutrition Evidence of Malnutrition Exists Yes Malnutrition (severe): Chronic Evidenced By Suboptimal Energy Intake ( Severe),Weight Loss (Severe) Clinical Problem Chronic Disease or Condition Related Malnutrition Etiology chronic, severe malnutrition related to inadequate energy intake Signs/Symptoms as evidenced by unintentional wt loss of 38.5#/21% x 8 months, estimated PO intake meeting <75% of estimated energy needs > 3 months Status Active Problem Recommendation Dietitian Recommendations/Changes regular diet as tolerated- texture/consistency per VENDOR SPECIALIST; ensure plus high protein 120mL 4x/day w/ medpass and Alfonso BID for wound healing. Lab / Micro Data Result Diagrams: 11/05/22 04:30 11/05/22 04:30 Labs: Laboratory Results - last 24 hr 11/05/22 04:30: WBC 12.7 H, RBC 2.87 L, Hgb 8.2 L, Hct 25.6 L, MCV 89.2, MCH 28.6, MCHC 32.0, RDW Std Deviation 52.7 H, RDW Coeff of Luis 16.1 H, Plt Count 413, MPV 10.0, Immature Gran % (Auto) 0.600, Neut % (Auto) 80.2 H, Lymph % (Auto) 9.8 L, Coleman % (Auto) 6.6, Eos % (Auto) 2.2, Baso % (Auto) 0.6, Absolute Neuts (auto) 10.1 H, Absolute Lymphs (auto) 1.24, Nucleated RBC % 0 11/05/22 04:30: Sodium 142, Potassium 2.5 L*, Chloride 110 H, Carbon Dioxide 25.0, Anion Gap 7, BUN 10, Creatinine 0.39 L, Estim Creat Clear Calc 58.85, Est GFR (MDRD) Af Amer 282, Est GFR (MDRD) Non-Af 233, BUN/Creatinine Ratio 25.9 H, Glucose 97, Calcium 7.8 L Micro: Microbiology 11/03/22 11:10 Urine Catheter - Soto Urine Culture - Final Culture exhibits no growth. 11/03/22 09:25 Blood Culture (Wb) - Anticubital Left Blood Culture - Preliminary No growth in 48 hours. 11/03/22 09:05 Blood Culture (Wb) - Anticubital Right Blood Culture - Preliminary No growth in 48 hours. 11/03/22 09:05 Stool Stool Occult Blood (VIMAL) - Final Occult Blood Positive Physical Exam Narrative Patient appears older than his stated age General Appearance: cooperative and well developed Orientation / Consciousness: awake, oriented to person and oriented to place HEENT normocephalic, head/scalp atraumatic and moist oral mucous membranes HEENT Narrative: Patient is hard of hearing Eyes PERRL, EOMs intact bilaterally and conjunctivae normal Neck supple, no JVD, thyroid normal and no carotid bruits General: trachea midline Resp normal respiratory effort, no retractions, no use of accessory muscles and clear to auscultation bilaterally Auscultation: Negative for rales, rhonchi or wheezes Cardio regular rate, regular rhythm, S1 normal heart sound, S2 normal heart sound, no murmurs, no rub and no gallops GI normal to inspection, nondistended, normoactive bowel sounds, soft to palpation, non-tender and non-distended Extremity Extremity Narrative: There is evidence of black eschars over the patient's feet bilaterally worse on the right especially on the dorsal aspect of the right foot, areas of dry gangrene are noted over the patient's toes bilaterally, there is a large open area over the patient's right lateral malleolus Skin Skin Narrative: There is a large defect in the skin over the left lower back area and left sacral/buttocks area, this defect is full-thickness of the skin and the patient's sacrum is visible at the bottom of the wound.? This wound is approximately 8-10? cm in diameter, there is an area of redness around the wound covering the left upper buttocks and right upper buttocks area as well as the mid lumbar area Neuro CN's II-XII intact bilaterally, no focal motor deficits and no sensory deficits noted Sensorium / Orientation: awake, alert, oriented to person and oriented to place Speech: speech normal Psych Psych Narrative: Patient is confused at times during my examination, he is difficult to communicate with due to severe hearing loss Assessment & Plan Assessment/Plan (1) Sepsis: PLAN: Plan 1. Acute sepsis secondary to deep wound infection of the left lower back and sacral/buttocks area with VRE and MRSA-I talked with infectious diseases today, they agree with the present antibiotics daptomycin and Zosyn IV. Infectious diseases will follow. 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 intake meeting less than 75% of estimated energy needs over 3 months-regular diet as tolerated, Ensure plus high-protein 120 mL 4 times a day with med Pass and Alfonso twice daily for wound healing-patient at this time refuses a PEG tube for nutritional supplementation. I discussed this with the patient's brother today, I initially told him that he would be returning [facility] the [facility] today but because of the need for further speech evaluation, I have decided to keep the patient and reevaluate him tomorrow. 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-complicates care, medical course, recovery, and prognosis #6 cerebrovascular disease-complicates care, medical course, recovery, and prognosis, patient will remain on his present medications per penitentiary #7 chronic debility due to severe medical problems including malnutrition, stage IV pressure injury of the left lower back/buttocks/sacral area-patient will be seen by PT and OT, he will need to return to a skilled care facility at the time of discharge #8 acute hypotension-probably secondary to volume depletion, patient will be given IV fluids, patient's blood pressure currently is stable #9 metabolic encephalopathy/cognitive dysfunction-secondary to chronic illness, complicates care, medical course, recovery, and prognosis #10 severe hearing loss-complicates care, medical course, recovery, and prognosis Total clinical time spent by myself addressing the patient's medical issues, reviewing all of his data, and collaborating with patient's care team: 36 minutes Charges/Coding Visit Charges Inpatient E&M: 75855 Subs Hosp L2
[2022-11-05] MEDS: 0.9% Normal Saline 1,000 ML 75 ML IV (18:54)
[2022-11-05] MEDS: Lisinopril 20 MG Tablet PO (22:48)
[2022-11-05] MEDS: Atorvastatin Calcium 40 MG Tablet PO (22:48)
[2022-11-05] MEDS: Mirtazapine 15 MG Tablet 7.5 MG PO (22:48)
[2022-11-05] MEDS: Acetaminophen 325 MG Tablet 650 MG PO (22:48)
[2022-11-05] MEDS: Potassium Chloride 20mEq/100mL 20 MEQ/100 ML IV.SOLN. 100 MEQ IV BOLUS (23:57)
[2022-11-06] VITALS (12 sets, daily range): BP systolic 82–141; BP diastolic 54–92; PULSE 84–107; RESP 15–20; TEMP 36.3–37.1; O2SAT 91–97
[2022-11-06] MEDS: 0.9% Normal Saline 1,000 ML 75 ML IV ×2 (04:46→21:48)
[2022-11-06 06:47] LABS: Absolute Lymphocyte Count 1.32 X10^3/uL (0.83-4.51); Absolute Neutrophil Count 9.9 X10^3/uL (2.0-7.7); Basophil# 0.08 X10^3/uL; Basophil% 0.6 % (0-1); Eosinophil# 0.16 X10^3/uL; Eosinophils% 1.3 % (0-5); Hematocrit 28.3 % (40-54); Hemoglobin 9.1 g/dL (13.0-16.5); Lymphocyte # 1.32 X10^3/ul (0.83-4.51); Lymphocyte % 10.7 % (19-41); Mean Corp Hgb Conc 32.2 g/dL (32-36); Mean Corpuscular Hgb 28.8 pg (27.0-32.0); Mean Corpuscular Volume 89.6 fL (80-94); Mean Platelet Vol. 9.7 fl (6.2-12.0); Monocyte# 0.87 X10^3/uL; NRBC Flagged by Analyzer 0 % (0-5); Neutrophil # 9.87 X10^3/uL (2.7-7.7); Neutrophil % 79.9 % (47-70); Platelet Count 421 K/mm3 (150-450); RBC Distribution Width CV 16.2 % (11.6-14.6); RBC Distribution Width SD 54.1 fl (35.1-43.9); Red Blood Count 3.16 M/mm3 (4.6-6.2); White Blood Count 12.4 K/mm3 (4.4-11.0)
[2022-11-06 07:25] LABS: Anion Gap 9 (5-15); BUN 6 mg/dL (7-18); BUN/Creat Ratio 17.8 RATIO (10-20); Calcium,Total 8.1 mg/dL (8.5-10.1); Chloride 109 mmol/L (98-107); Creatinine, Serum 0.34 mg/dL (0.70-1.30); EST Glomerular Filtration Rate 271 mL/min (>60); Est Glom Filt Rate - Afr Amer 328 mL/min (>60); Estimated Creatinine Clearance 58.85 ml/min; Glucose 73 mg/dL (74-106); Potassium 2.7 mmol/L (3.5-5.1); Sodium Level 141 mmol/L (136-145)
[2022-11-06] MEDS: Ipratropium/Albuterol Sulfate 3 ML AMPUL.NEB INHALATION ×2 (07:42→13:46)
[2022-11-06] MEDS: Potassium Chloride 20mEq/100mL 20 MEQ/100 ML IV.SOLN. 100 MEQ IV BOLUS ×4 (08:46→18:01)
[2022-11-06] MEDS: Heparin Injection (Vial) 5,000 UNIT/ML VIAL 5000 UNIT SC (09:07)
[2022-11-06] MEDS: Juven (unflavored) Packet 1 PACKET PO (09:08)
[2022-11-06] MEDS: Ferrous Sulfate 325 MG Tablet PO (09:08)
[2022-11-06] MEDS: amLODIPine 10 MG Tablet PO (09:08)
[2022-11-06] MEDS: Pantoprazole Sodium 40 MG Tablet PO (09:08)
[2022-11-06] MEDS: Ascorbic Acid 500 MG Tablet PO (09:08)
[2022-11-06] MEDS: Multivitamins,Ther W-Minerals Tablet 1 TABLET PO (09:08)
[2022-11-06] MEDS: Sertraline 100 MG Tablet PO (09:08)
--- NOTE | 2022-11-06 10:47 | CASEMGMT ---
Discharge Planning Updated [facility] on discharge status. Nina Ramon
--- NOTE | 2022-11-06 13:18 | CASEMGMT ---
Discharge Planning [facility] updated on discharge date change via [facility]. Nina Ramon
--- NOTE | 2022-11-06 13:47 | CASEMGMT ---
Patient is now going to get a peg tube placed. 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
[2022-11-06 15:18] LABS: Magnesium 0.8 mg/dL (1.6-2.6); Potassium 2.8 mmol/L (3.5-5.1)
[2022-11-06] MEDS: Lactated Ringers 1,000 ML 15 ML IV (16:41)
[2022-11-06] MEDS: Magnesium Sulfate 4gm/100mL 4 GM/100 ML IV.SOLN. IV (16:47)
--- NOTE | 2022-11-06 17:07 | PCM.PN.HOSP ---
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 They also did not want to perform a barium swallow. I contacted gastroenterology and they will see the patient, I talked to the patient and his brother who was in the room today at the time my exam and the patient is consented to an EGD with insertion of the PEG tube at this time. Objective Data Objective Data Vital Signs: Vital Signs Temp Pulse Resp BP Pulse Ox O2 Del Method O2 Flow Rate 98.3 F 107 H 15 128/62 H 96 Room Air 2 11/06/22 14:00 11/06/22 14:00 11/06/22 14:00 11/06/22 14:00 11/06/22 14:00 11/06/22 14:00 11/05/22 09:30 Oxygen Flow Rate (L/min) 2 Oxygen Delivery Method Room Air Weight: 64.2 kg Body Mass Index (BMI) 19.7 Intake & Output: Intake and Output for Last 24 Hours 11/04/22 11/05/22 11/06/22 23:59 23:59 23:59 Intake Total 3285 / 3405 2671.67 / 2731.67 2121.25 / 2121.25 Output Total 1750 / 1950 1550 / 1850 1700 / 1700 Balance 1535 / 1455 1121.67 / 881.67 421.25 / 421.25 Medical Nutrition Assessment Dietitian: Malnutrition Criteria Met Start: 11/03/22 14:09 Freq: Status: Active Protocol: Document 11/06/22 14:58 VERONIKA (Rec: 11/06/22 14:58 [id number]) Nutrition Malnutrition Evidence of Malnutrition Exists Yes Malnutrition (severe): Chronic Evidenced By Suboptimal Energy Intake ( Severe),Weight Loss (Severe) Clinical Problem Chronic Disease or Condition Related Malnutrition Etiology chronic, severe malnutrition related to inadequate energy intake Signs/Symptoms as evidenced by unintentional wt loss of 38.5#/21% x 8 months, estimated PO intake meeting <75% of estimated energy needs > 3 months Status Active Problem Recommendation Dietitian Recommendations/Changes 1) If PEG placed- Jevity 1.5 300mL bolus 5x/day w/ 80mL H2O flush before and after each bolus to provide 2250 calories , 95.7g protein, and 1940mL total fluid/day. Would start w / 150mL for first bolus, increase to 225mL for second bolus as tolerated and then to goal volume of 300mL. 2) Alfonso BID via PEG for wound healing. 3) Close monitoring of electrolytes, daily wts as enteral nutrition provided d/t risk for refeeding syndrome. 4) If appropriate for PO intake, recommend regular diet as tolerated- texture/ consistency per ASSISTANT ACCOUNT MANAGER Lab / Micro Data Result Diagrams: 11/06/22 06:30 11/06/22 06:30 Labs: Laboratory Results - last 24 hr 11/06/22 06:30: WBC 12.4 H, RBC 3.16 L, Hgb 9.1 L, Hct 28.3 L, MCV 89.6, MCH 28.8, MCHC 32.2, RDW Std Deviation 54.1 H, RDW Coeff of Luis 16.2 H, Plt Count 421, MPV 9.7, Immature Gran % (Auto) 0.500, Neut % (Auto) 79.9 H, Lymph % (Auto) 10.7 L, [place] % (Auto) 7.0, Eos % (Auto) 1.3, Baso % (Auto) 0.6, Absolute Neuts (auto) 9.9 H, Absolute Lymphs (auto) 1.32, Nucleated RBC % 0 11/06/22 06:30: Sodium 141, Potassium 2.7 L*, Chloride 109 H, Carbon Dioxide 23.0, Anion Gap 9, BUN 6 L, Creatinine 0.34 L, Estim Creat Clear Calc 58.85, Est GFR (MDRD) Af Amer 328, Est GFR (MDRD) Non-Af 271, BUN/Creatinine Ratio 17.8, Glucose 73 L, Calcium 8.1 L 11/06/22 06:30: Potassium 2.8 L, Magnesium 0.8 L* Micro: Microbiology 11/03/22 11:10 Urine Catheter - Soto Urine Culture - Final Culture exhibits no growth. 11/03/22 09:25 Blood Culture (Wb) - Anticubital Left Blood Culture - Preliminary No growth in 48 hours. 11/03/22 09:05 Blood Culture (Wb) - Anticubital Right Blood Culture - Preliminary No growth in 48 hours. 11/03/22 09:05 Stool Stool Occult Blood (VIMAL) - Final Occult Blood Positive Physical Exam Narrative Patient appears older than his stated age General Appearance: cooperative and well developed Orientation / Consciousness: awake, oriented to person and oriented to place HEENT normocephalic, head/scalp atraumatic and moist oral mucous membranes HEENT Narrative: Patient is hard of hearing Eyes PERRL, EOMs intact bilaterally and conjunctivae normal Neck supple, no JVD, thyroid normal and no carotid bruits General: trachea midline Resp normal respiratory effort, no retractions, no use of accessory muscles and clear to auscultation bilaterally Auscultation: Negative for rales, rhonchi or wheezes Cardio regular rate, regular rhythm, S1 normal heart sound, S2 normal heart sound, no murmurs, no rub and no gallops GI normal to inspection, nondistended, normoactive bowel sounds, soft to palpation, non-tender and non-distended Extremity Extremity Narrative: There is evidence of black eschars over the patient's feet bilaterally worse on the right especially on the dorsal aspect of the right foot, areas of dry gangrene are noted over the patient's toes bilaterally, there is a large open area over the patient's right lateral malleolus Skin Skin Narrative: There is a large defect in the skin over the left lower back area and left sacral/buttocks area, this defect is full-thickness of the skin and the patient's sacrum is visible at the bottom of the wound.? This wound is approximately 8-10? cm in diameter, there is an area of redness around the wound covering the left upper buttocks and right upper buttocks area as well as the mid lumbar area Neuro CN's II-XII intact bilaterally, no focal motor deficits and no sensory deficits noted Sensorium / Orientation: awake, alert, oriented to person and oriented to place Speech: speech normal Psych Psych Narrative: Patient is confused at times during my examination, he is difficult to communicate with due to severe hearing loss Assessment & Plan Assessment/Plan (1) Sepsis: PLAN: Plan 1. Acute sepsis secondary to deep wound infection of the left lower back and sacral/buttocks area with VRE and MRSA-I talked with infectious diseases today, they agree with the present antibiotics daptomycin and Zosyn IV. Infectious diseases will follow. 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 intake meeting less than 75% of estimated energy needs over 3 months-regular diet as tolerated, patient will need a PEG tube inserted for nutritional support hopefully this can be inserted today or tomorrow. 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-complicates care, medical course, recovery, and prognosis #6 cerebrovascular disease-complicates care, medical course, recovery, and prognosis, patient will remain on his present medications per detention #7 chronic debility due to severe medical problems including malnutrition, stage IV pressure injury of the left lower back/buttocks/sacral area-patient will be seen by PT and OT, he will need to return to a skilled care facility at the time of discharge #8 acute hypotension-probably secondary to volume depletion, patient will be given IV fluids, patient's blood pressure currently is stable #9 metabolic encephalopathy/cognitive dysfunction-secondary to chronic illness, complicates care, medical course, recovery, and prognosis #10 severe hearing loss-complicates care, medical course, recovery, and prognosis #11 hypokalemia-patient was given additional IV potassium supplementation today, we will need to recheck the potassium tomorrow or later today. #12 hypomagnesemia-patient was given magnesium supplementation today, magnesium level will be rechecked tomorrow Total clinical time spent by myself addressing the patient's medical issues, reviewing all of his data, and collaborating with patient's care team: 50 minutes Charges/Coding Visit Charges Inpatient E&M: 18830 [facility] L3
--- NOTE | 2022-11-06 19:10 | OP.EGD_ITS ---
Patient Name: Matt Villaseñor Procedure Date: 11/06/2022 6:18 PM Date of : 1950 Age: 72 Procedure: Upper GI endoscopy Indications: Dysphagia Providers: Baron Milton DO Medicines: Monitored Anesthesia Care Patient Profile: This is a 72 year old male. Refer to note in patient chart for documentation of history and physical. Patient has symptoms of dysphagia with both liquids and solids. Complications: No immediate complications. Procedure: Pre-Anesthesia Assessment: - Prior to the procedure, a History and Physical was performed, and patient medications and allergies were reviewed. The risks and benefits of the procedure and the sedation options and risks were discussed with the patient. All questions were answered and informed consent was obtained. Patient identification and proposed procedure were verified by the physician. Mental Status Examination: normal. Prophylactic Antibiotics: The patient does not require prophylactic antibiotics. Prior Anticoagulants: The patient has taken no previous anticoagulant or antiplatelet agents. ASA Grade Assessment: II - A patient with mild systemic disease. After reviewing the risks and benefits, the patient was deemed in satisfactory condition to undergo the procedure. The anesthesia plan was to use monitored anesthesia care (MAC). Immediately prior to administration of medications, the patient was re-assessed for adequacy to receive sedatives. The heart rate, respiratory rate, oxygen saturations, blood pressure, adequacy of pulmonary ventilation, and response to care were monitored throughout the procedure. The physical status of the patient was re-assessed after the procedure. After obtaining informed consent, the endoscope was passed under direct vision. Throughout the procedure, the patient's blood pressure, pulse, and oxygen saturations were monitored continuously. The gastroscope was introduced through the mouth, and advanced to the second part of duodenum. The upper GI endoscopy was accomplished without difficulty. The patient tolerated the procedure well. Scope In: 6:35:39 PM Scope Out: 7:00:06 PM Total Procedure Duration Time 0 hours 24 minutes 27 seconds Findings: One stenosis was found 29 to 39 cm from the incisors. This stenosis was severe (stenosis; an endoscope cannot pass) and. The stenosis was traversed after downsizing scope and dilating. A TTS dilator was passed through the scope. Dilation with a 15-16.5-18 mm balloon dilator was performed to 16 mm. The dilation site was examined and showed complete resolution of luminal narrowing. Estimated blood loss was minimal. Severe esophagitis with bleeding was found 30 to 37 cm from the incisors. Area was successfully injected with 5 mL of a 1:10,000 solution of epinephrine for drug delivery. Coagulation for hemostasis using heater probe was successful. Estimated blood loss was minimal. A medium-sized hiatal hernia was present. The patient was placed in the supine position for PEG placement. The stomach was insufflated to appose gastric and abdominal herrera. A site was located in the cardia with excellent transillumination for placement. The abdominal wall was marked and prepped in a sterile manner. The area was anesthetized with 1 mL of 0.5% lidocaine. The trocar needle was introduced through the abdominal wall and into the stomach under direct endoscopic view. A snare was introduced through the endoscope and opened in the gastric lumen. The guide wire was passed through the trocar and into the open snare. The snare was closed around the guide wire. The endoscope and snare were removed, pulling the wire out through the mouth. A skin incision was made at the site of needle insertion. The externally removable 20 Fr Bard gastrostomy tube was lubricated. The G-tube was tied to the guide wire and pulled through the mouth and into the stomach. The trocar needle was removed, and the gastrostomy tube was pulled out from the stomach through the skin. The external bumper was attached to the gastrostomy tube, and the tube was cut to remove the guide wire. The final position of the gastrostomy tube was confirmed by relook endoscopy, and skin marking noted to be 4 cm at the external bumper. The final tension and compression of the abdominal wall by the PEG tube and external bumper were checked. The feeding tube was capped, and the tube site cleaned and dressed. Two non-bleeding superficial duodenal ulcers with no stigmata of bleeding were found in the duodenal bulb. The largest lesion was 6 mm in largest dimension. Impression: - Esophageal stenosis. Dilated. - Severe erosive esophagitis. Injected. Treated with a heater probe. - Medium-sized hiatal hernia. - Multiple non-bleeding duodenal ulcers with no stigmata of bleeding. - An externally removable PEG placement was successfully completed. - No specimens collected. Recommendation: - [facility]. - NPO. - Continue present medications. - Continue present medications. Procedure Code(s): --- Professional --- 65270, 59, Esophagogastroduodenoscopy, flexible, transoral; with control of bleeding, any method 69100, Esophagogastroduodenoscopy, flexible, transoral; with directed placement of percutaneous gastrostomy tube 30945, Esophagogastroduodenoscopy, flexible, transoral; with transendoscopic balloon dilation of esophagus (less than 30 mm diameter) 46178, 59, Esophagogastroduodenoscopy, flexible, transoral; with directed submucosal injection(s), any substance CPT copyright 2017 [employer]. All rights reserved. The codes documented in this report are preliminary and upon flight radio operator review may be revised to meet current compliance requirements. Baron Milton DO 11/06/2022 7:10:20 PM This report has been signed electronically. Number of Addenda: 0 Note Initiated On: 11/06/2022 6:18 PM
--- NOTE | 2022-11-06 19:11 | OP.CCLET_ITS ---
11/06/2022 Edmundo Hahn MD [address] [place] [address] Re : Upper GI endoscopy procedure for Matt Villaseñor Dear Dr. Hahn This procedure was performed on Sunday, November 06, 2022. My impressions and recommendations are as follows: Impressions : - Esophageal stenosis. Dilated. - Severe erosive esophagitis. Injected. Treated with a heater probe. - Medium-sized hiatal hernia. - Multiple non-bleeding duodenal ulcers with no stigmata of bleeding. - An externally removable PEG placement was successfully completed. - No specimens collected. Recommendations : - [facility]. - NPO. - Continue present medications. - Continue present medications. My findings are described in the full procedure note, which is enclosed. If I can be of further assistance, please feel free to contact me at . Sincerely, Baron Milton, 11/06/2022 7:10:20 PM This report has been signed electronically.
[2022-11-06] MEDS: Mirtazapine 15 MG Tablet 7.5 MG PO (21:37)
[2022-11-06] MEDS: Lisinopril 20 MG Tablet PO (21:37)
[2022-11-06] MEDS: Atorvastatin Calcium 40 MG Tablet PO (21:38)
[2022-11-06] MEDS: 0.9% Saline Lock 10 ML Syringe IV (21:55)
[2022-11-07 03:15] VITALS: BMI 19.8
[2022-11-07 03:29] VITALS: BP 147/77; PULSE 91; RESP 20; TEMP 36.5; O2SAT 97
[2022-11-07 06:50] VITALS: PULSE 95; RESP 16; O2SAT 94
[2022-11-07] MEDS: Ipratropium/Albuterol Sulfate 3 ML AMPUL.NEB INHALATION (06:50)
[2022-11-07] MEDS: 0.9% Normal Saline 1,000 ML 75 ML IV (06:53)
[2022-11-07 08:16] VITALS: BP 137/77; PULSE 91; RESP 16; TEMP 36.6; O2SAT 95
[2022-11-07 08:36] LABS: Magnesium 1.5 mg/dL (1.6-2.6); Phosphorus 2.6 mg/dL (2.5-4.9)
[2022-11-07 08:55] LABS: Anion Gap 14 (5-15); BUN 6 mg/dL (7-18); BUN/Creat Ratio 18.2 RATIO (10-20); Calcium,Total 7.9 mg/dL (8.5-10.1); Chloride 107 mmol/L (98-107); Creatinine, Serum 0.33 mg/dL (0.70-1.30); EST Glomerular Filtration Rate 279 mL/min (>60); Est Glom Filt Rate - Afr Amer 337 mL/min (>60); Estimated Creatinine Clearance 59.13 ml/min; Glucose 117 mg/dL (74-106); Potassium 3.2 mmol/L (3.5-5.1); Sodium Level 142 mmol/L (136-145)
--- NOTE | 2022-11-07 09:43 | CASEMGMT ---
Addendum entered by Jo Ann Churchill 11/07/22 11:16: Social Work SW also sent wound care notes to [facility] via [facility]. [facility] did confirm via [facility] they can take pt back when he is ready. Original Note: Social Work SW sent all updates including OR report and peg tube recommendations to [facility] via [facility]. DIANA Rios
--- NOTE | 2022-11-07 10:00 | PN_ITS ---
Subjective Subjective Patient underwent an upper endoscopy yesterday for dysphagia, weight loss and malnutrition. Objective Data Objective Data Vital Signs: Vital Signs Temp Pulse Resp BP Pulse Ox O2 Del Method O2 Flow Rate 97.9 F 86 16 147/69 H 92 Room Air 1 11/07/22 15:56 11/07/22 15:56 11/07/22 15:56 11/07/22 15:56 11/07/22 15:56 11/07/22 15:56 11/07/22 08:16 Oxygen Flow Rate (L/min) 1 Oxygen Delivery Method Room Air Weight: 142 lb 3.17 oz Body Mass Index (BMI) 19.8 Intake & Output: Intake and Output for Last 24 Hours 11/05/22 11/06/22 11/07/22 23:59 23:59 23:59 Intake Total 2671.67 / 2731.67 2471.25 / 2521.25 1736.50 / 1736.50 Output Total 1550 / 1850 1700 / 2150 900 / 900 Balance 1121.67 / 881.67 771.25 / 371.25 836.50 / 836.50 Medical Nutrition Assessment Dietitian: Malnutrition Criteria Met Start: 11/03/22 14:09 Freq: Status: Active Protocol: Document 11/07/22 11:22 RMA (Rec: 11/07/22 11:22 RMA [id number]) Nutrition Malnutrition Evidence of Malnutrition Exists Yes Malnutrition (severe): Chronic Evidenced By Suboptimal Energy Intake ( Severe),Weight Loss (Severe) Clinical Problem Chronic Disease or Condition Related Malnutrition Etiology chronic, severe malnutrition related to inadequate energy intake Signs/Symptoms as evidenced by unintentional wt loss of 38.5#/21% x 8 months, estimated PO intake meeting <75% of estimated energy needs > 3 months Status Active Problem Recommendation Dietitian Recommendations/Changes 1) Will order Jevity 1.5 Stephen 300mL bolus 5x/day w/ 80mL H2O flush before and after each bolus to provide 2250 calories , 95.7g protein, and 1940mL total fluid/day. Would start w / 150mL for first bolus, increase to 225mL for second bolus as tolerated and then to goal volume of 300mL boluses 5 times per day. 2) Alfonso BID via PEG for wound healing. 3) Close monitoring of electrolytes and daily weights as Tf initiated due to risk for refeeding syndrome. 4) Continue PO with Full Liquid diet as ordered for pleasure; recommend advance to regular diet as tolerated with texture/consistency per [employer]. Lab / Micro Data Result Diagrams: 11/06/22 06:30 11/07/22 06:20 Labs: Laboratory Results - last 24 hr 11/07/22 06:20: Phosphorus 2.6, Magnesium 1.5 L 11/07/22 06:20: Sodium 142, Potassium 3.2 L, Chloride 107, Carbon Dioxide 21.0, Anion Gap 14, BUN 6 L, Creatinine 0.33 L, Estim Creat Clear Calc 59.13, Est GFR (MDRD) Af Amer 337, Est GFR (MDRD) Non-Af 279, BUN/Creatinine Ratio 18.2, Glucose 117 H, Calcium 7.9 L Micro: Microbiology 11/03/22 11:10 Urine Catheter - Soto Urine Culture - Final Culture exhibits no growth. 11/03/22 09:25 Blood Culture (Wb) - Anticubital Left Blood Culture - Preliminary No growth in 48 hours. 11/03/22 09:05 Blood Culture (Wb) - Anticubital Right Blood Culture - Preliminary No growth in 48 hours. 11/03/22 09:05 Stool Stool Occult Blood (VIMAL) - Final Occult Blood Positive Physical Exam Narrative Patient appears older than his stated age General Appearance: cooperative and well developed Orientation / Consciousness: awake, oriented to person and oriented to place HEENT normocephalic, head/scalp atraumatic and moist oral mucous membranes HEENT Narrative: Patient is hard of hearing Eyes PERRL, EOMs intact bilaterally and conjunctivae normal Neck supple, no JVD, thyroid normal and no carotid bruits General: trachea midline Resp normal respiratory effort, no retractions, no use of accessory muscles and clear to auscultation bilaterally Auscultation: Negative for rales, rhonchi or wheezes Cardio regular rate, regular rhythm, S1 normal heart sound, S2 normal heart sound, no murmurs, no rub and no gallops GI normal to inspection, nondistended, normoactive bowel sounds, soft to palpation, non-tender and non-distended Extremity Extremity Narrative: There is evidence of black eschars over the patient's feet bilaterally worse on the right especially on the dorsal aspect of the right foot, areas of dry gangrene are noted over the patient's toes bilaterally, there is a large open area over the patient's right lateral malleolus Skin Skin Narrative: There is a large defect in the skin over the left lower back area and left sacral/buttocks area, this defect is full-thickness of the skin and the patient's sacrum is visible at the bottom of the wound.? This wound is chad roximately 8-10? cm in diameter, there is an area of redness around the wound covering the left upper buttocks and right upper buttocks area as well as the mid lumbar area Neuro CN's II-XII intact bilaterally, no focal motor deficits and no sensory deficits noted Sensorium / Orientation: awake, alert, oriented to person and oriented to place Speech: speech normal Psych Psych Narrative: Patient is confused at times during my examination, he is difficult to communicate with due to severe hearing loss Assessment & Plan Assessment/Plan (1) Sepsis: (2) Esophageal dysphagia: (3) Weight loss: PLAN: Plan 72 yo with osteomyelitis, acute sepsis secondary to deep wound infection of the left lower back and sacral/buttocks area with VRE and MRSA on antibiotics with a wound VAC in place. He also has severe chronic caloric and protein malnutrition -as evidenced by unintentional weight loss of 38.5 pounds x 8 months, estimated p.o. intake meeting less than 75% of estimated energy needs over 3 months secondary to progressive esophageal dysphagia. -Dysphagia- Severe esophageal stricture (possibly malignant) s/p dilation with alot of bleeding that was difficult to stop secondary to poor nutrition and heparin administration. Biopsies were not taken. -Protein calorie malnutrition- Severe. Peg tube was placed yesterday and he is tolerating tube feedings. -Esophageal Stricture - Outpatient eged with biopies. Charges/Coding Visit Charges Inpatient E&M: 52158 [facility] L3
[2022-11-07] MEDS: amLODIPine 10 MG Tablet PO (10:56)
[2022-11-07] MEDS: Ascorbic Acid 500 MG Tablet PO ×2 (10:56→13:26)
[2022-11-07] MEDS: Sertraline 100 MG Tablet PO (10:56)
--- NOTE | 2022-11-07 11:38 | PCM.TXEXTCAR ---
Diet Diet Order/Speech Therapy: 11/07/22 08:36 Diet: Full Liquid-advance to regular diet after 48 hrs Is pt able to select menu?: No Diet Comments: sips & chips supervised & meds crushed in when managing secretions Tube Feed: as outlined below Routine Orders/Code Status Routine Lab Work: [facility] (On 11/09/2022) Code Status: Full Code Wound(s) left sacrum: Wound Type: wound vac to sacral wound Dressing Change: Dakins moistened gauze left inner buttock: Wound Type: Pressure Injury right ramirez: Wound Type: Abrasion Dressing Change: dry dressing right lateral leg: Wound Type: pressure/ischemia? Dressing Change: well padded dry dressing right lateral ankle: Wound Type: Pressure Injury Dressing Change: well padded dressing right dorsal foot: Wound Type: ischemia Dressing Change: betadine with dry dressing right lateral foot: Wound Type: Pressure Injury Dressing Change: well padded dressing right lateral foot (near 5th toe): Wound Type: Pressure Injury right heel: Wound Type: Pressure Injury Dressing Change: betadine with well padded dressing toes of left foot: Wound Type: scattered areas of dry eschar Dressing Change: dry dressing left heel: Wound Type: Pressure Injury Dressing Change: betadine with dry dressing left anterior ankle: Wound Type: Pressure Injury Dressing Change: well padded dressing left lateral foot: Wound Type: Pressure Injury Dressing Change: well padded dressing right upper arm: Wound Type: Skin Tear bilateral feet/R lower leg: Wound Type: scattered dry eschar Dressing Change: betadine with dry dressings ABD: Wound Type: Surgical Incision Therapies Weight Bearing: Weight bearing as tolerated Physical Therapy: Eval and Treat Occupational Therapy: Eval and Treat Speech Therapy: Eval and Treat Problem/Diagnosis (1) Esophageal dysphagia: Status: Acute Code(s): R13.19 - Other dysphagia (2) Severe malnutrition: Status: Acute Code(s): E43 - Unspecified severe protein-calorie malnutrition (3) Sepsis: Status: Acute Code(s): A41.9 - Sepsis, unspecified organism Plan 1. Acute sepsis secondary to deep wound infection of the left lower back and sacral/buttocks area with VRE and MRSA-I talked with infectious diseases today, they agree with the present antibiotics daptomycin #2 pressure injury to left lower back area, left upper buttocks, left sacral area-stage IV-wound care nurse will continue to see the patient, he does have a wound VAC in place #3 severe chronic caloric and protein malnutrition-as evidenced by unintentional weight loss of 38.5 pounds x 8 months, estimated p.o. 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-complicates care, medical course, recovery, and prognosis #6 cerebrovascular disease-complicates care, medical course, recovery, and prognosis, patient will remain on his present medications per snf #7 chronic debility due to severe medical problems including malnutrition, stage IV pressure injury of the left lower back/buttocks/sacral area-patient will be seen by PT and OT, he will need to return to a skilled care facility at the time of discharge #8 acute hypotension-probably secondary to volume depletion, patient will be given IV fluids, patient's blood pressure currently is stable #9 metabolic encephalopathy/cognitive dysfunction-secondary to chronic illness, complicates care, medical course, recovery, and prognosis #10 severe hearing loss-complicates care, medical course, recovery, and prognosis #11 hypokalemia-patient's potassium today was 3.2, IV potassium replacement was given, BMP will be rechecked at the snf #12 hypomagnesemia-patient's potassium is borderline at this time, I will administer IV magnesium today before he goes to the snf #13 distal esophageal stricture-patient will need follow-up with Dr. Milton to schedule a repeat EGD for biopsy of the distal esophageal area-this appointment will need to be made within the next 2 to 3 weeks, distal esophageal cancer has to be ruled out Total clinical time spent by myself addressing the patient's medical issues, reviewing all of his data, and collaborating with patient's care team: 50 minutes Allergies/Procedures Done in Hospital Allergies No Known Allergies Allergy (Verified 11/03/22 08:40) Procedures: EGD and Peg tube placement Type of Care/Length of Stay Estimated LOS: Convalescent Care Less Than 30 days Type of Care Needed: Skilled Rehab Potential: Good Prognosis: Good Additional Orders/Day of Discharge H&P will serve as current which was dated: 11/03/22 Day of Discharge: 11/07/22 Dietary and Speech Recommendations Dietitian Recommendations/Changes: 1) Will order Jevity 1.5 Stephen 300mL bolus 5x/day w/ 80mL H2O flush before and after each bolus to provide 2250 calories, 95.7g protein, and 1940mL total fluid/day. Would start w/ 150mL for first bolus, increase to 225mL for second bolus as tolerated and then to goal volume of 300mL boluses 5 times per day. 2) Alfonso BID via PEG for wound healing. 3) Close monitoring of electrolytes and daily weights as Tf initiated due to risk for refeeding syndrome. 4) Continue PO with Full Liquid diet as ordered for pleasure; recommend advance to regular diet as tolerated with texture/consistency per PAST DUE ACCOUNTS CLERK. Discharge Plan Admission Admit Date/Time: 11/03/22 13:29 Primary Reason for Your Visit: Sepsis, malnutrition, esophageal stricture Attending Provider: King Monae Primary Care Provider: Edmundo Hahn Consulting Providers: Harper Womack ; Ramesh Ventura Discharge Orders/Prescriptions Prescriptions: Continued cholecalciferol (vitamin D3) 50 mcg (2,000 unit) capsule 50 mcg PO DAILY atorvastatin 40 MG tablet 40 mg PO QHS Qty: 30 0RF amlodipine 10 MG tablet 10 mg PO DAILY Qty: 30 0RF sertraline 100 mg tablet 100 mg PO DAILY tamsulosin 0.4 mg Capsule 0.4 mg PO DAILY pantoprazole 40 mg tablet,delayed release (DR/EC) 40 mg PO BID lisinopril 20 MG tablet 20 mg PO QHS ascorbic acid (vitamin C) 500 mg Tablet 500 mg PO TIDCM Qty: 0 0RF daptomycin 500 mg recon soln 500 mg IV DAILY Qty: 40 0RF Rx Instructions: administer over 30 mins stop date 11/30/22 dx: sacral osteo weekly bmp, cbc, CK, LFT, and esr. fax to [phone] multivitamin,up-iyzj-Gd-FA-min 27-0.4 mg Tablet 1 tab PO DAILY Dakin's Solution 0.125 % Solution 1 applic TOPICAL Q12H multivit,stress formula-zinc Tablet 1 tab PO DAILY Changed ipratropium-albuterol 0.5 mg-3 mg(2.5 mg base)/3 mL Solution For Nebulization 3 ml inhalation 4XD Qty: 1 0RF ferrous sulfate 300 mg (60 mg iron)/5 mL Liquid 300 mg PO BID Qty: 1 0RF mirtazapine [Remeron] 15 mg Tablet 15 mg PO QHS Qty: 1 0RF Discontinued bumetanide 0.5 mg tablet 0.5 mg PO BID Qty: 60 0RF amoxicillin-pot clavulanate 875-125 mg tablet 1 tab PO BID Qty: 30 0RF scopolamine base 1 mg over 3 days Patch 3 Day 1 patch TRANSDERMAL Q3D loratadine 10 mg Tablet 10 mg PO DAILY guaifenesin [Mucinex] 600 mg Tablet Extended Release 12hr 1,200 mg PO BID Referrals / Follow Up: Edmundo Hahn MD [Primary Care Provider] - Friend,DO Baron [Med Staff - Active Staff] - See Referral Note (Call for an appointment-patient needs repeat EGD in 2 to 3 weeks for biopsy of distal esophagus to rule out cancer) Disposition Disposition (needs filled in before D/C Order can be placed): Assisted Facility
[2022-11-07 11:50] VITALS: O2SAT 92
--- NOTE | 2022-11-07 11:58 | DS.PCM_ITS ---
Providers Date of Admission: 11/03/22 Date of Discharge: 11/07/22 Primary Care Physician: Dr. Edmundo Hahn MD Consultations 11/03/22 13:54 Consult: General Surgery Routine Consulting Provider: Harper Womack Reason for Consult: ? colostomy EMERGENT Consult: No Notified: Yes Date Notified: 11/03/22 Time Notified: 13:45 Method of Notification: Verbal Consult: Infectious Disease Routine Consulting Provider: Ramesh Ventura Reason for Consult: sepsis EMERGENT Consult: No Notified: Yes Date Notified: 11/03/22 Time Notified: 13:40 Method of Notification: Verbal Consult: Onc/Wound/wringer operator Routine Comment: Reason for Consult:: sacral wound 11/06/22 13:34 Consult: Gastroenterology Routine Consulting Provider: [facility] Reason for Consult: PEG placement and EGD EMERGENT Consult: No Notified: Yes Date Notified: 11/06/22 Time Notified: 13:35 Method of Notification: Verbal Reason For Visit: SEPSIS / HYPOTENSION Diagnosis Discharge Diagnosis (1) Esophageal dysphagia: Status: Acute Code(s): R13.19 - Other dysphagia (2) Severe malnutrition: Status: Acute Code(s): E43 - Unspecified severe protein-calorie malnutrition (3) Sepsis: Status: Acute Code(s): A41.9 - Sepsis, unspecified organism Plan 1. Acute sepsis secondary to deep wound infection of the left lower back and sacral/buttocks area with VRE and MRSA-I talked with infectious diseases today, they agree with the present antibiotics daptomycin #2 pressure injury to left lower back area, left upper buttocks, left sacral area-stage IV-wound care nurse will continue to see the patient, he does have a wound VAC in place #3 severe chronic caloric and protein malnutrition-as evidenced by unintentional weight loss of 38.5 pounds x 8 months, estimated p.o. 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-complicates care, medical course, recovery, and prognosis #6 cerebrovascular disease-complicates care, medical course, recovery, and prognosis, patient will remain on his present medications per [facility] #7 chronic debility due to severe medical problems including malnutrition, stage IV pressure injury of the left lower back/buttocks/sacral area-patient will be seen by PT and OT, he will need to return to a skilled care facility at the time of discharge #8 acute hypotension-probably secondary to volume depletion, patient will be given IV fluids, patient's blood pressure currently is stable #9 metabolic encephalopathy/cognitive dysfunction-secondary to chronic illness, complicates care, medical course, recovery, and prognosis #10 severe hearing loss-complicates care, medical course, recovery, and prognosis #11 hypokalemia-patient's potassium today was 3.2, IV potassium replacement was given, BMP will be rechecked at the prison #12 hypomagnesemia-patient's potassium is borderline at this time, I will administer IV magnesium today before he goes to the prison #13 distal esophageal stricture-patient will need follow-up with Dr. Milton to schedule a repeat EGD for biopsy of the distal esophageal area-this appointment will need to be made within the next 2 to 3 weeks, distal esophageal cancer has to be ruled out Total clinical time spent by myself addressing the patient's medical issues, r eviewing all of his data, and collaborating with patient's care team: 50 minutes Medications at Discharge Home Medications amlodipine 10 mg tablet 10 mg PO DAILY #30 tabs 08/19/20 atorvastatin 40 mg tablet 40 mg PO QHS #30 tabs 08/19/20 lisinopril 20 mg tablet 20 mg PO QHS 09/07/22 pantoprazole 40 mg tablet,delayed release 40 mg PO BID 09/07/22 sertraline 100 mg tablet 100 mg PO DAILY 09/07/22 tamsulosin 0.4 mg capsule 0.4 mg PO DAILY 09/07/22 ascorbic acid (vitamin C) 500 mg tablet 500 mg PO TIDCM #0 tabs 09/10/22 cholecalciferol (vitamin D3) 50 mcg (2,000 unit) capsule 50 mcg PO DAILY 09/22/22 daptomycin 500 mg intravenous solution 500 mg IV DAILY #40 ea 10/20/22 multivit,stress formula-zinc tablet 1 tab PO DAILY SKIN INTERVENTION 11/03/22 multivit,tx with iron 27 xg-bgcpjjd-hzrrp acid 0.4 mg-minerals tablet 1 tab PO DAILY SUPPLEMENT 11/03/22 sodium hypochlorite 0.125 % solution (Dakin's Solution) 1 applic topical Q12H ULCER 11/03/22 ferrous sulfate 300 mg (60 mg iron)/5 mL oral liquid 300 mg (5 mL) PO BID #1 mL 11/07/22 ipratropium 0.5 mg-albuterol 3 mg (2.5 mg base)/3 mL nebulization soln 3 ml inhalation 4XD #1 mL 11/07/22 mirtazapine 15 mg tablet (Remeron) 15 mg PO QHS APPETITTE #1 TAB 11/07/22 Hospital Course Operations None Procedures EGD and Peg tube placement Summary of Care Provided Minutes Spent on Discharge: 33 Hospital Course: 72-year-old white male was brought to the emergency room by squad from a local [facility] care facility at which she is a resident due to low blood pressure and altered mental status, patient had been undergoing treatment for a large sacral and left upper buttocks stage IV pressure injury with spread to the sacrum with IV antibiotics at the prison. On evaluating the patient in the emergency room, his white blood cell count was slightly elevated, his blood pressure was low and he was given a fluid bolus with improvement of his blood pressure. It was felt that he was septic, he was admitted to PCU and placed on daptomycin and Zosyn, he was seen in consultation by infectious diseases. Discussions were carried out with the patient regarding permission for placement of a colostomy- patient initially refused but then was okay with this but because he was refusing a PEG tube, I did not feel it ramsay to proceed with a colostomy. Patient's wound actually appeared to be healing adequately and a wound VAC was kept in place during his hospitalization. It was noted that during the patient's hospital stay he had a hard time swallowing food and liquids and he suctioned himself frequently, it was recommended by speech therapy that he undergo a procedure to determine why he had difficulty swallowing-speech therapy did not want to give the patient a barium swallow. Patient initially did not want a PEG tube inserted, after explaining the need for a PEG tube due to his malnutrition and the fact that he was having trouble swallowing, he consented to an EGD and a PEG tube insertion. On 11/06/2022, patient underwent an EGD which showed a distal esophageal stenotic area which was possibly cancer, no biopsy was done however due to the fact the patient's tissue was friable and bleeding. Gastroenterology was able however to insert a PEG tube and he tolerated the procedure well. Patient was low on potassium several times during his hospitalization was given IV potassium supplementation. He was seen by PT and OT. On 11/07/2022, patient was seen and examined:Patient appears older than his stated age General Appearance: cooperative and well developed Orientation / Consciousness: awake, oriented to person and oriented to place HEENT normocephalic, head/scalp atraumatic and moist oral mucous membranes HEENT Narrative: Patient is hard of hearing Eyes PERRL, EOMs intact bilaterally and conjunctivae normal Neck supple, no JVD, thyroid normal and no carotid bruits General: trachea midline Resp normal respiratory effort, no retractions, no use of accessory muscles and clear to auscultation bilaterally Auscultation: Negative for rales, rhonchi or wheezes Cardio regular rate, regular rhythm, S1 normal heart sound, S2 normal heart sound, no murmurs, no rub and no gallops GI normal to inspection, nondistended, normoactive bowel sounds, soft to palpation, non-tender and non-distended Extremity Extremity Narrative: There is evidence of black eschars over the patient's feet bilaterally worse on the right especially on the dorsal aspect of the right foot, areas of dry gangrene are noted over the patient's toes bilaterally, there is a large open area over the patient's right lateral malleolus Skin Skin Narrative: There is a large defect in the skin over the left lower back area and left sacral/buttocks area, this defect is full-thickness of the skin and the patient' s sacrum is visible at the bottom of the wound.? This wound is approximately 8- 10? cm in diameter, there is an area of redness around the wound covering the left upper buttocks and right upper buttocks area as well as the mid lumbar area Neuro CN's II-XII intact bilaterally, no focal motor deficits and no sensory deficits noted Sensorium / Orientation: awake, alert, oriented to person and oriented to place Speech: speech normal Psych Psych Narrative: Patient is confused at times during my examination, he is difficult to communicate with due to severe hearing loss Patient appears stable for return to the prison for inpatient rehab serv[facility] on 11/07/2022 in stable condition Medical Records Data Medical Nutrition Assessment Dietitian: Malnutrition Criteria Met Start: 11/03/22 14:09 Freq: Status: Active Protocol: Document 11/07/22 11:22 RMA (Rec: 11/07/22 11:22 RMA [id number]) Nutrition Malnutrition Evidence of Malnutrition Exists Yes Malnutrition (severe): Chronic Evidenced By Suboptimal Energy Intake ( Severe),Weight Loss (Severe) Clinical Problem Chronic Disease or Condition Related Malnutrition Etiology chronic, severe malnutrition related to inadequate energy intake Signs/Symptoms as evidenced by unintentional wt loss of 38.5#/21% x 8 months, estimated PO intake meeting <75% of estimated energy needs > 3 months Status Active Problem Recommendation Dietitian Recommendations/Changes 1) Will order Jevity 1.5 Stephen 300mL bolus 5x/day w/ 80mL H2O flush before and after each bolus to provide 2250 calories , 95.7g protein, and 1940mL total fluid/day. Would start w / 150mL for first bolus, increase to 225mL for second bolus as tolerated and then to goal volume of 300mL boluses 5 times per day. 2) Alfonso BID via PEG for wound healing. 3) Close monitoring of electrolytes and daily weights as Tf initiated due to risk for refeeding syndrome. 4) Continue PO with Full Liquid diet as ordered for pleasure; recommend advance to regular diet as tolerated with texture/consistency per CATERING TRUCK OPERATOR. Weight / BMI Weight Weight: 64.5 kg Body Mass Index (BMI) 19.8 ABG / Lab / Microbiology Data Result Diagrams: 11/06/22 06:30 11/07/22 06:20 Laboratory: Laboratory Results - last 24 hr 11/06/22 06:30: Potassium 2.8 L, Magnesium 0.8 L* 11/07/22 06:20: Phosphorus 2.6, Magnesium 1.5 L 11/07/22 06:20: Sodium 142, Potassium 3.2 L, Chloride 107, Carbon Dioxide 21.0, Anion Gap 14, BUN 6 L, Creatinine 0.33 L, Estim Creat Clear Calc 59.13, Est GFR (MDRD) Af Amer 337, Est GFR (MDRD) Non-Af 279, BUN/Creatinine Ratio 18.2, Glucose 117 H, Calcium 7.9 L Microbiology: Microbiology 11/03/22 11:10 Urine Catheter - Soto Urine Culture - Final Culture exhibits no growth. 11/03/22 09:25 Blood Culture (Wb) - Anticubital Left Blood Culture - Preliminary No growth in 48 hours. 11/03/22 09:05 Blood Culture (Wb) - Anticubital Right Blood Culture - Preliminary No growth in 48 hours. 11/03/22 09:05 Stool Stool Occult Blood (VIMAL) - Final Occult Blood Positive Meaningful Use Info Meaningful Use Diagnoses (Choose all that apply): None applicable Discharge Plan Admission Admit Date/Time: 11/03/22 13:29 Primary Reason for Your Visit: Sepsis, malnutrition, esophageal stricture Attending Provider: King Monae Primary Care Provider: Edmundo Hahn Consulting Providers: Harper Womack ; Ramesh Ventura Discharge Orders/Prescriptions Prescriptions: Continued cholecalciferol (vitamin D3) 50 mcg (2,000 unit) capsule 50 mcg PO DAILY atorvastatin 40 MG tablet 40 mg PO QHS Qty: 30 0RF amlodipine 10 MG tablet 10 mg PO DAILY Qty: 30 0RF sertraline 100 mg tablet 100 mg PO DAILY tamsulosin 0.4 mg Capsule 0.4 mg PO DAILY pantoprazole 40 mg tablet,delayed release (DR/EC) 40 mg PO BID lisinopril 20 MG tablet 20 mg PO QHS ascorbic acid (vitamin C) 500 mg Tablet 500 mg PO TIDCM Qty: 0 0RF daptomycin 500 mg recon soln 500 mg IV DAILY Qty: 40 0RF Rx Instructions: administer over 30 mins stop date 11/30/22 dx: sacral osteo weekly bmp, cbc, CK, LFT, and esr. fax to [phone] multivitamin,ws-qdex-Ua-FA-min 27-0.4 mg Tablet 1 tab PO DAILY Dakin's Solution 0.125 % Solution 1 applic TOPICAL Q12H multivit,stress formula-zinc Tablet 1 tab PO DAILY Changed ipratropium-albuterol 0.5 mg-3 mg(2.5 mg base)/3 mL Solution For Nebulization 3 ml inhalation 4XD Qty: 1 0RF ferrous sulfate 300 mg (60 mg iron)/5 mL Liquid 300 mg PO BID Qty: 1 0RF mirtazapine [Remeron] 15 mg Tablet 15 mg PO QHS Qty: 1 0RF Discontinued bumetanide 0.5 mg tablet 0.5 mg PO BID Qty: 60 0RF amoxicillin-pot clavulanate 875-125 mg tablet 1 tab PO BID Qty: 30 0RF scopolamine base 1 mg over 3 days Patch 3 Day 1 patch TRANSDERMAL Q3D loratadine 10 mg Tablet 10 mg PO DAILY guaifenesin [Mucinex] 600 mg Tablet Extended Release 12hr 1,200 mg PO BID Referrals / Follow Up: Edmundo Hahn MD [Primary Care Provider] - Friend,DO Baron [Med Staff - Active Staff] - See Referral Note (Call for an appointment-patient needs repeat EGD in 2 to 3 weeks for biopsy of distal esophagus to rule out cancer) Disposition Disposition (needs filled in before D/C Order can be placed): [facility] Facility Charges/Coding Visit Charges Inpatient E&M: 64643 Disch Hosp >30min
[2022-11-07 12:16] VITALS: BP 142/62; PULSE 95; RESP 16; TEMP 36.8; O2SAT 95
[2022-11-07] MEDS: Potassium Chloride 20mEq/100mL 20 MEQ/100 ML IV.SOLN. 100 MEQ IV BOLUS (13:18)
[2022-11-07] MEDS: Jevity 1.5. 1,000 ML Bottle 300 ML GT (13:28)
--- NOTE | 2022-11-07 15:30 | NURSING ---
Wound vac not in place when this RN took over pt at 0700 this am. Patient to be discharged today so no new wound vac placed. Sacral wound packed, wet to dry dressing applied.
[2022-11-07 15:56] VITALS: BP 147/69; PULSE 86; RESP 16; TEMP 36.6; O2SAT 92
--- NOTE | 2022-11-07 16:32 | NURSING ---
Report called to nurse at [facility].
== END 2022-11-07 17:24 | DRG 871 ==
LOC: ED 09:58 → PCU 14:12
PROVIDERS: Anesthesiology; Internal Medicine Gastroenterology; Admitting Provider Internal Medicine; Emergency Provider Emergency Medicine; PCP Family Medicine; Visit Provider Internal Medicine
PROC: 0DJ08ZZ Inspection of Upper Intestinal Tract, Via Natural or Artificial Opening Endoscopic (ICD-10-PCS; CPT 43235; principal; 2022-11-06 18:10)
DX: A41.02 Sepsis due to Methicillin resistant Staphylococcus aureus (principal); E43 Unspecified severe protein-calorie malnutrition; G93.41 Metabolic encephalopathy; L89.144 Pressure ulcer of left lower back, stage 4; L89.154 Pressure ulcer of sacral region, stage 4; L89.324 Pressure ulcer of left buttock, stage 4; K20.91 Esophagitis, unspecified with bleeding; C15.5 Malignant neoplasm of lower third of esophagus; I96 Gangrene, not elsewhere classified; M86.8X8 Other osteomyelitis, other site; Z68.1 Body mass index [BMI] 19.9 or less, adult; A41.81 Sepsis due to Enterococcus; I95.9 Hypotension, unspecified; K22.2 Esophageal obstruction; I10 Essential (primary) hypertension; E78.5 Hyperlipidemia, unspecified; E87.6 Hypokalemia; E86.9 Volume depletion, unspecified; H91.90 Unspecified hearing loss, unspecified ear; K26.9 Duodenal ulcer, unspecified as acute or chronic, without hemorrhage or perforation; R13.10 Dysphagia, unspecified; Z79.899 Other long term (current) drug therapy; Z87.891 Personal history of nicotine dependence; Z86.73 Personal history of transient ischemic attack (TIA), and cerebral infarction without residual deficits
CPT/HCPCS: 36415; 36592; 71045; 73620; 74176; 80048; 80053; 81001; 82274; 83605; 83735; 84100; 84132; 84484; 85025; 85610; 85730; 86850; 86900; 86901; 87040; 87086; 92507; 92526; 92610; 93005; 94640; 97110; 97162; 97166; 97530; 97535; 97802; 97803; 99285; 99406; J0878; J7030; J7120; A4216; J0295; J2405; J3490

== ENCOUNTER 2022-12-17 12:57 | Inpatient (IN) | payer MEDICARE, OTHER, SELFPAY ==
[2022-12-17] VITALS (10 sets, daily range): BP systolic 87–123; BP diastolic 51–84; PULSE 16–82; RESP 13–20; TEMP 35.8–36.4; O2SAT 93–100; BMI 21.7; BMI 21.6
--- NOTE | 2022-12-17 13:18 | EX.ED.DYSGE1 ---
HPI History of Present Illness Chief Complaint: Abn Labs Detail of Chief Complaint: Patient is uncertain why he is here. He is not a good informant. Informant: patient, EMS and SNF (Patient was sent because of low hemoglobin) Onset/Context/Timing Onset: - (Unknown with regards to the anemia and months with regards to the right lower extremity wound) Context: - (Unable to determine) Timing: - (Unable to determine) Quality: Unable to determine Location: Not applicable Current Severity: Patient is not a good informant Maximum Severity: Patient is not a good informant Worsened by: Wound infection is probably worse due to peripheral arterial disease Relieved by: Nothing Associated Symptoms Associated Symptoms: Patient truly has no specific complaints Narrative Narrative: Patient is a 72-year-old male who was sent by ambulance from [facility] because of abnormal lab i.e. low hemoglobin and possible wound infection. Reviewing documents from [facility] reveals that patient is presently on cephalexin and trimethoprim/sulfamethoxazole. Review of those records also indicate the patient has no allergies to antibiotics. He denies fever or chills. He denies headache. He denies visual symptoms. He denies cardiac or respiratory symptoms. He denies GI symptoms. 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 Bilateral carotid artery stenosis Cardiomyopathy Cervical spondylosis Cervical stenosis of spinal canal Cognitive dysfunction Decubitus ulcer, stage 4 with infection Dependent on walker for ambulation Dysphagia Esophageal dysphagia Essential (primary) hypertension Glucose intolerance (impaired glucose tolerance) History of alcohol abuse History of stroke (08/01/20) Hyperlipidemia Hyponatremia Mass of parotid gland MRSA (methicillin resistant Staphylococcus aureus) infection Non-pressure chronic ulcer of other part of right foot with necrosis of muscle Osteomyelitis, chronic, pelvis or thigh Osteomyelitis, pelvis Peripheral vascular disease, unspecified Peripheral vascular occlusive disease Presbycusis of both ears Sepsis Severe malnutrition Skin necrosis Skin ulcer of buttock with necrosis of muscle Smoker 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 Tobacco dependence due to cigarettes Home Medications pantoprazole 40 mg tablet,delayed release 40 mg PO BID ACID REFLUX 09/07/22 [History Last Taken 12/17/22] sertraline 100 mg tablet 100 mg PO DAILY DEPRESSION 09/07/22 [History Last Taken 12/17/22] tamsulosin 0.4 mg capsule 0.4 mg PO QHS PROSTATE 09/07/22 [History Last Taken 12/16/22] cholecalciferol (vitamin D3) 50 mcg (2,000 unit) capsule 50 mcg PO DAILY SUPPLEMENT 09/22/22 [History Last Taken 12/17/22] magnesium oxide 400 mg (241.3 mg magnesium) tablet (MagOx) 400 mg PO DAILY SUPPLEMENT 11/25/22 [History Last Taken 12/17/22] oxycodone 5 mg capsule 5 mg PO Q8H PRN Severe Pain (Scale Score 7-10) 12/09/22 [History Last Taken 12/17/22 08:00] Lactobacillus rhamnosus GG 10 billion cell capsule (Culturelle) 1 cap PO BID GUT GEALTH 12/17/22 [History Last Taken 12/17/22] amino acids-protein hydrolysate 17 gram-100 kcal/30 mL oral liquid (Pro-Stat AWC) 30 ml PO QHS WOUND CARE 12/17/22 [History Last Taken 12/16/22] amlodipine 5 mg tablet 5 mg PO DAILY BLOOD PRESSURE 12/17/22 [History Last Taken 12/17/22] ascorbic acid (vitamin C) 500 mg tablet 500 mg PO TID SUPPLEMENT 12/17/22 [History Last Taken 12/17/22] atorvastatin 40 mg tablet 40 mg PO QHS CHOLESTEROL 12/17/22 [History Last Taken 12/16/22] carvedilol 3.125 mg tablet (Coreg) 3.125 mg PO BID HEART 12/17/22 [History Last Taken 12/17/22] cephalexin 500 mg capsule 500 mg PO TID RT FOOT INFECTION 12/17/22 [History Last Taken 12/17/22] ferrous sulfate 300 mg (60 mg iron)/5 mL oral liquid See Rx Instructions .Route .COMPLEX 12/17/22 [History Last Taken 12/17/22] ipratropium 0.5 mg-albuterol 3 mg (2.5 mg base)/3 mL nebulization soln 3 ml inhalation 4XD SHORTNESS OF BREATH 12/17/22 [History Last Taken 12/17/22] mirtazapine 15 mg disintegrating tablet 15 mg PO QHS APPETITE 12/17/22 [History Last Taken 12/16/22] multivitamin,tx-minerals 1 tab PO DAILY SUPPLEMENT 12/17/22 [History Last Taken 12/17/22] nystatin-triamcinolone 100,000 unit/g-0.1 % topical cream 1 applic topical BID WOUND 12/17/22 [History Last Taken 12/17/22] sacubitril 24 mg-valsartan 26 mg tablet (Entresto) 1 tab PO BID BLOOD PRESSURE 12/17/22 [History Last Taken 12/17/22] sulfamethoxazole 800 mg-trimethoprim 160 mg tablet (Bactrim DS) 1 tab PO BID ANTIBIOTIC 12/17/22 [History Last Taken 12/17/22] Allergy/AdvReac Type Severity Reaction Status Date / Time No Known Allergies Allergy Verified 12/09/22 13:41 Family History Father Dementia Mother Dementia Social History household members: none Smoking Status: Former smoker Tobacco: How many years used: 40 Electronic Cigarette Use: with nicotine second hand exposure: Yes alcohol intake: former year quit: 2020 substance use type: does not use caffeine: Yes (4 cups daily) Type: coffee seatbelt use: sometimes ROS ROS ED Review of Systems ROS Unobtainable: other Details: Patient is a poor informant. Please refer to HPI narrative. History unfortunately is limited. EXAM Physical Exam Const Vital Signs: 12/17/22 13:00 12/17/22 14:13 12/17/22 14:13 Temperature 96.5 F L Temperature Source Oral Pulse Rate 82 75 Respiratory Rate 18 13 Respiratory Pattern Blood Pressure 87/59 L 110/51 L Blood Pressure Mean 68 70 Pulse Ox 95 97 Oxygen Delivery Method Nasal Cannula Nasal Cannula Nasal Cannula Oxygen Flow Rate (L/min) 2 2 2 12/17/22 14:27 12/17/22 15:23 Temperature 97.4 F L Temperature Source Oral Pulse Rate 75 Respiratory Rate 13 Respiratory Pattern Normal Blood Pressure 96/52 L Blood Pressure Mean 66 Pulse Ox 93 Oxygen Delivery Method Nasal Cannula Oxygen Flow Rate (L/min) 3 Positive well developed, cachectic and unkempt; Negative for well nourished General Appearance ED: unkempt, well developed, cachectic, NAD and pallor; Negative for cyanotic or diaphoretic Nutritional Appearance: cachectic HEENT Reports dry mucous membranes HEENT Narrative: Patient has atrophy temporal regions bilaterally. Ears are normal. TMs are normal. Nares patent. Mucosa is dry. Posterior pharynx is unremarkable. Mouth ED: Yes dry mucous membranes Mouth: dry mucous membranes Eyes PERRL and EOMs intact bilaterally General Eye ED: Yes pale conjunctiva; Negative for scleral icterus Neck no lymphadenopathy, supple and no JVD Chest Wall inspection of chest normal and palpation of chest normal Resp normal respiratory effort and clear to auscultation bilaterally Cardio regular rate, regular rhythm, S1 normal heart sound, S2 normal heart sound and no murmurs GI normal to inspection, nondistended, normoactive bowel sounds, non-tender, non-distended and hepatosplenomegaly Back/Spine no CVA tenderness Extremity Negative for normal to inspection Extremity Narrative: Patient has a wound near the lateral malleolus with a dressing noted. There is surrounding erythema and warmth. There is also a wound anterior mid right leg that has purulent material flowing from it. There is no lymphangitis. There is no popliteal or inguinal lymphadenopathy. Patient also has a large necrotic area dorsum of his foot. There is no drainage or odor appreciated. There is question of no erythema in the crease of the palm which would mean his hemoglobin is less than 6. Neuro oriented x3, CN's II-XII intact bilaterally and no sensory deficits noted Sensorium / Orientation: alert Psych Psych Narrative: Affect is flat. Appearance: unkempt Skin No no rashes or lesions noted, No no wounds and No skin turgor normal General Skin Exam: pallor; Negative for jaundice Sepsis Attestation Sepsis Alert: Yes Sepsis Attestation: Agree w/Sepsis Date exam was performed: 12/17/22 Time exam was performed: 13:00 Possible Source of Sepsis: Skin/soft tissue Sepsis Organ Dysfunction Criteria Present: SBP < 90 mmHg or MAP < 65 mmHg Fluid Resuscitation Fluid resuscitation indicated?: Yes Fluid Resuscitation ordered: 30 ml/kg fluid bolus ordered Amount of fluid ordered: 2,000 Sepsis Note Date exam was performed: 12/17/22 Time exam was performed: 15:08 Sepsis Attestation: Sepsis re-evaluation was performed Response to fluids: Fluid responsive hypotension MDM MDM MDM Narrative Medical decision making narrative: Patient is hypotensive with a systolic less than 90. He will receive a 30 cc/kg bolus since concerned that patient has an infection as a cause of his hypotension and not a GI bleed. He does not have black or maroon-colored stool. Sepsis work-up was initiated. Sepsis order set and sepsis treatment order set was initiated. Patient was typed and screened. Patient received 4.5 g of Zosyn IV piggyback and 15 mg/kg of vancomycin IV piggyback. Patient was made NPO. Case was discussed with the hospitalist. Since patient's blood pressure is trending downward we will give another fluid bolus. Blood pressure is not below 90 and mean arterial is not below 65. For closer nursing supervision and care patient was placed in the PCU stepdown. Lab Data Attestation: I reviewed the patient's lab results. Lab results narrative: White count is elevated 19.2 thousand with shift. There is no bandemia. Hemoglobin 7.1 and 22.8. Patient's normal hemoglobin varies between 8.2 and 9.2. Her PTT and PT are slightly elevated. INR is normal at comprehensive metabolic panel is remarkable for elevated AST and ALT of 78 and 150 respectively. Alkaline phosphatase slightly elevated 210. BUN and creatinine are remarkable for a BUN to creatinine ratio of 80:1. Since October he has had a significantly elevated BUN to creatinine ratio. GFR is 186 Lactate is normal 1.1. Labs: Laboratory Results - last 24 hr 12/17/22 12/17/22 12/17/22 13:07 13:07 13:07 WBC 19.2 H RBC 2.61 L Hgb 7.1 L Hct 22.8 L MCV 87.4 MCH 27.2 MCHC 31.1 L RDW Std Deviation 53.8 H RDW Coeff of Luis 17.2 H Plt Count 735 H MPV 10.2 Immature Gran % (Auto) 1.200 H Neut % (Auto) 87.8 H Lymph % (Auto) 4.5 L Love % (Auto) 5.1 Eos % (Auto) 1.2 Baso % (Auto) 0.2 Absolute Neuts (auto) 16.8 H Absolute Lymphs (auto) 0.87 Nucleated RBC % 0 PT 16.6 H INR 1.3 APTT 38.4 H Sodium 134 L Potassium 4.2 Chloride 102 Carbon Dioxide 27.0 Anion Gap 5 BUN 38 H Creatinine 0.47 L Estim Creat Clear Calc 64.86 Est GFR (MDRD) Af Amer 225 Est GFR (MDRD) Non-Af 186 BUN/Creatinine Ratio 81.2 H Glucose 165 H Lactic Acid Calcium 8.8 Total Bilirubin 0.20 AST 78 H ALT 150 H Alkaline Phosphatase 210 H Total Protein 6.6 Albumin 1.4 L Globulin 5.2 H Albumin/Globulin Ratio 0.3 L Urine Color Urine Clarity Urine pH Ur Specific [place] Urine Protein Urine Glucose (UA) Urine Ketones Urine Occult Blood Urine Nitrite Urine Bilirubin Urine Urobilinogen Ur Leukocyte Esterase Urine RBC Urine WBC Ur Squamous Epith Cells Urine Bacteria Urine Mucus Blood Type Antibody Screen 12/17/22 12/17/22 12/17/22 13:08 14:00 14:15 WBC RBC Hgb Hct MCV MCH MCHC RDW Std Deviation RDW Coeff of Luis Plt Count MPV Immature Gran % (Auto) Neut % (Auto) Lymph % (Auto) Love % (Auto) Eos % (Auto) Baso % (Auto) Absolute Neuts (auto) Absolute Lymphs (auto) Nucleated RBC % PT INR APTT Sodium Potassium Chloride Carbon Dioxide Anion Gap BUN Creatinine Estim Creat Clear Calc Est GFR (MDRD) Af Amer Est GFR (MDRD) Non-Af BUN/Creatinine Ratio Glucose Lactic Acid 1.1 Calcium Total Bilirubin AST ALT Alkaline Phosphatase Total Protein Albumin Globulin Albumin/Globulin Ratio Urine Color Yellow Urine Clarity Cloudy Urine pH 7.0 Ur Specific [place] 1.005 Urine Protein 30 H Urine Glucose (UA) Normal Urine Ketones Negative Urine Occult Blood 50 H Urine Nitrite Negative Urine Bilirubin Negative Urine Urobilinogen Normal Ur Leukocyte Esterase 500 H Urine RBC 0 SEEN Urine WBC >100 SEEN Ur Squamous Epith Cells 0 SEEN Urine Bacteria 0 SEEN Urine Mucus 0 SEEN Blood Type O POSITIVE Antibody Screen NEGATIVE Urine reveals pyuria with no bacteria. Radiography Chest X-Ray - ED: Read by ED Physician (Three-view x-ray of the foot reveals thickening of the dorsal skin where there is necrotic area. There is no subcutaneous air. There is significant arthritic changes noted of the great toe. There is no lytic lesions to suggest osteomyelitis nor is or any periosteal elevation noted.) Diagnostic Testing: Clinical Impression(s) from Imaging Studies Foot X-Ray 12/17/22 14:28 IMPRESSION: Stable findings of the head of the 4th and 5th metatarsal heads concerning for chronic osteomyelitis. Electronically Signed: Henry Victoria MD at 15:11 EDT , Management Discussion w/another healthcare provider: Hospitalist Critical Care Time Critical Care Time: Yes Critical care time (excluding procedures): 30-74 minutes (31), Including time spent: (History, physical, documentation, review of prior records and laboratory results, initiation of therapy based on those results and independent interpretation of x-rays), Discussing w/Consultants and Arranging Admission or Transfer Discharge Plan Dx/Rx/DC Orders Clinical Impression: Cellulitis of leg, right, Hyperlipidemia, Leukocytosis, Acute on chronic anemia, Acute hypotension, Prerenal azotemia, Peripheral arterial disease Disposition Disposition: Acute Care Hospital [facility]
[2022-12-17 13:27] LABS: Absolute Lymphocyte Count 0.87 X10^3/uL (0.83-4.51); Absolute Neutrophil Count 16.8 X10^3/uL (2.0-7.7); Basophil# 0.04 X10^3/uL; Basophil% 0.2 % (0-1); Eosinophil# 0.23 X10^3/uL; Eosinophils% 1.2 % (0-5); Hematocrit 22.8 % (40-54); Hemoglobin 7.1 g/dL (13.0-16.5); Lymphocyte # 0.87 X10^3/ul (0.83-4.51); Lymphocyte % 4.5 % (19-41); Mean Corp Hgb Conc 31.1 g/dL (32-36); Mean Corpuscular Hgb 27.2 pg (27.0-32.0); Mean Corpuscular Volume 87.4 fL (80-94); Mean Platelet Vol. 10.2 fl (6.2-12.0); Monocyte# 0.97 X10^3/uL; Monocyte% 5.1 % (0-10); NRBC Flagged by Analyzer 0 % (0-5); Neutrophil # 16.82 X10^3/uL (2.7-7.7); Neutrophil % 87.8 % (47-70); Platelet Count 735 K/mm3 (150-450); RBC Distribution Width CV 17.2 % (11.6-14.6); RBC Distribution Width SD 53.8 fl (35.1-43.9); Red Blood Count 2.61 M/mm3 (4.6-6.2); White Blood Count 19.2 K/mm3 (4.4-11.0)
[2022-12-17] MEDS: 0.9% Normal Saline 1,000 ML 1000 ML IV (13:30)
[2022-12-17] MEDS: 0.9% Normal Saline 1,000 ML 999 ML IV (13:30)
[2022-12-17 13:40] LABS: International Normalized Ratio 1.3; Partial Thromboplast Time 38.4 Seconds (24.1-36.2); Prothrombin Time (Protime)PT. 16.6 SECONDS (11.7-14.9)
[2022-12-17 13:47] LABS: ALB/GLOB Ratio 0.3 RATIO (0.9-2.4); AST(SGOT) 78 U/L (15-37); Alanine Aminotransfer ALT/SGPT 150 U/L (16-61); Albumin, Serum 1.4 g/dL (3.2-5.0); Alkaline Phosphatase 210 U/L (45-117); Anion Gap 5 (5-15); BUN 38 mg/dL (7-18); BUN/Creat Ratio 81.2 RATIO (10-20); Calcium,Total 8.8 mg/dL (8.5-10.1); Chloride 102 mmol/L (98-107); Creatinine, Serum 0.47 mg/dL (0.70-1.30); EST Glomerular Filtration Rate 186 mL/min (>60); Est Glom Filt Rate - Afr Amer 225 mL/min (>60); Estimated Creatinine Clearance 64.86 ml/min; Globulin 5.2 g/dL (2.2-4.2); Glucose 165 mg/dL (74-106); Potassium 4.2 mmol/L (3.5-5.1); Protein, Total 6.6 g/dL (6.4-8.2); Sodium Level 134 mmol/L (136-145)
[2022-12-17 14:26] LABS: Bacteria 0 SEEN /hpf (None Seen); Mucous, Urine 0 SEEN /hpf (<or=2+); Red Blood Cells-Urine 0 SEEN /hpf (0-5); Squamous Epithelial Cells - UA 0 SEEN /hpf (0-5)
--- NOTE | 2022-12-17 14:28 | RAD_ITS ---
STUDY: XR Foot Min 3 Views CLINICAL: Male, 72 years old. Injury/Pain TECHNIQUE: XR Foot 3 ViewsRIGHT COMPARISON: 10.07.22. FINDINGS: Normal talus, calcaneus, and tarsal bones. Normal visualized subtalar, talonavicular, calcaneocuboid, tarsal and tarsometatarsal articulations. There is evidence of a osteopenia with erosive changes in the distal aspect of the 4th and fifth metatarsal. There is degenerative arthrosis of the metatarsophalangeal joint of the hallux . Normal tibial and fibular sesamoid bones. Normal interphalangeal joint of the great toe. Normal phalanges of the great toe. Normal second through fifth metatarsophalangeal joints. Normal interphalangeal joints and phalanges of the lesser toes. There is non-specific soft tissue swelling of the foot. RAD/Foot min 3 Views IMPRESSION: Stable findings of the head of the 4th and 5th metatarsal heads concerning for chronic osteomyelitis. Electronically Signed: Henry Victoria MD at 15:11 EDT ,
[2022-12-17 14:29] LABS: Color, Urine Yellow (Yellow); Glucose, Dipstick Normal (Normal); Ketone-Dipstick Negative (Negative); Leukocyte Esterase-Dipstick 500 /ul (Negative); Nitrite-Dipstick Negative (Negative); Occult Blood-Urine 50 /ul (Negative); Protein-Dipstick 30 mg/dl (Negative); Specific Gravity, Urine 1.005 (1.002-1.030); Urine Bilirubin Dipstick Negative (Negative); Urine Clarity Cloudy (Clear); Urine Urobilinogen Normal (Normal)
[2022-12-17 14:34] LABS: White Blood Cells >100 SEEN /hpf (0-5)
[2022-12-17 15:06] LABS: Lactic Acid 1.1 mmol/L (0.4-1.9)
--- NOTE | 2022-12-17 16:38 | EX.ED.DYSGE1 ---
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 Bilateral carotid artery stenosis Cardiomyopathy Cervical spondylosis Cervical stenosis of spinal canal Cognitive dysfunction Decubitus ulcer, stage 4 with infection Dependent on walker for ambulation Dysphagia Esophageal dysphagia Essential (primary) hypertension Glucose intolerance (impaired glucose tolerance) History of alcohol abuse History of stroke (08/01/20) Hyperlipidemia Hyponatremia Mass of parotid gland MRSA (methicillin resistant Staphylococcus aureus) infection Non-pressure chronic ulcer of other part of right foot with necrosis of muscle Osteomyelitis, chronic, pelvis or thigh Osteomyelitis, pelvis Peripheral vascular disease, unspecified Peripheral vascular occlusive disease Presbycusis of both ears Sepsis Severe malnutrition Skin necrosis Skin ulcer of buttock with necrosis of muscle Smoker 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 Tobacco dependence due to cigarettes Home Medications pantoprazole 40 mg tablet,delayed release 40 mg PO BID ACID REFLUX 09/07/22 [History Last Taken 12/17/22] sertraline 100 mg tablet 100 mg PO DAILY DEPRESSION 09/07/22 [History Last Taken 12/17/22] tamsulosin 0.4 mg capsule 0.4 mg PO QHS PROSTATE 09/07/22 [History Last Taken 12/16/22] cholecalciferol (vitamin D3) 50 mcg (2,000 unit) capsule 50 mcg PO DAILY SUPPLEMENT 09/22/22 [History Last Taken 12/17/22] magnesium oxide 400 mg (241.3 mg magnesium) tablet (MagOx) 400 mg PO DAILY SUPPLEMENT 11/25/22 [History Last Taken 12/17/22] oxycodone 5 mg capsule 5 mg PO Q8H PRN Severe Pain (Scale Score 7-10) 12/09/22 [History Last Taken 12/17/22 08:00] Lactobacillus rhamnosus GG 10 billion cell capsule (Culturelle) 1 cap PO BID GUT GEALTH 12/17/22 [History Last Taken 12/17/22] amino acids-protein hydrolysate 17 gram-100 kcal/30 mL oral liquid (Pro-Stat AWC) 30 ml PO QHS WOUND CARE 12/17/22 [History Last Taken 12/16/22] amlodipine 5 mg tablet 5 mg PO DAILY BLOOD PRESSURE 12/17/22 [History Last Taken 12/17/22] ascorbic acid (vitamin C) 500 mg tablet 500 mg PO TID SUPPLEMENT 12/17/22 [History Last Taken 12/17/22] atorvastatin 40 mg tablet 40 mg PO QHS CHOLESTEROL 12/17/22 [History Last Taken 12/16/22] carvedilol 3.125 mg tablet (Coreg) 3.125 mg PO BID HEART 12/17/22 [History Last Taken 12/17/22] cephalexin 500 mg capsule 500 mg PO TID RT FOOT INFECTION 12/17/22 [History Last Taken 12/17/22] ferrous sulfate 300 mg (60 mg iron)/5 mL oral liquid See Rx Instructions .Route .COMPLEX 12/17/22 [History Last Taken 12/17/22] ipratropium 0.5 mg-albuterol 3 mg (2.5 mg base)/3 mL nebulization soln 3 ml inhalation 4XD SHORTNESS OF BREATH 12/17/22 [History Last Taken 12/17/22] mirtazapine 15 mg disintegrating tablet 15 mg PO QHS APPETITE 12/17/22 [History Last Taken 12/16/22] multivitamin,tx-minerals 1 tab PO DAILY SUPPLEMENT 12/17/22 [History Last Taken 12/17/22] nystatin-triamcinolone 100,000 unit/g-0.1 % topical cream 1 applic topical BID WOUND 12/17/22 [History Last Taken 12/17/22] sacubitril 24 mg-valsartan 26 mg tablet (Entresto) 1 tab PO BID BLOOD PRESSURE 12/17/22 [History Last Taken 12/17/22] sulfamethoxazole 800 mg-trimethoprim 160 mg tablet (Bactrim DS) 1 tab PO BID ANTIBIOTIC 12/17/22 [History Last Taken 12/17/22] Allergy/AdvReac Type Severity Reaction Status Date / Time No Known Allergies Allergy Verified 12/09/22 13:41 Family History Father Dementia Mother Dementia Social History household members: none Smoking Status: Former smoker Tobacco: How many years used: 40 Electronic Cigarette Use: with nicotine second hand exposure: Yes alcohol intake: former year quit: 2020 substance use type: does not use caffeine: Yes (4 cups daily) Type: coffee seatbelt use: sometimes EXAM Physical Exam Const Vital Signs: 12/17/22 13:00 12/17/22 14:13 12/17/22 14:13 Temperature 96.5 F L Temperature Source Oral Pulse Rate 82 75 Respiratory Rate 18 13 Respiratory Pattern Blood Pressure 87/59 L 110/51 L Blood Pressure Mean 68 70 Pulse Ox 95 97 Oxygen Delivery Method Nasal Cannula Nasal Cannula Nasal Cannula Oxygen Flow Rate (L/min) 2 2 2 12/17/22 14:27 12/17/22 15:23 Temperature 97.4 F L Temperature Source Oral Pulse Rate 75 Respiratory Rate 13 Respiratory Pattern Normal Blood Pressure 96/52 L Blood Pressure Mean 66 Pulse Ox 93 Oxygen Delivery Method Nasal Cannula Oxygen Flow Rate (L/min) 3 MDM MDM Lab Data Labs: Laboratory Results - last 24 hr 12/17/22 12/17/22 12/17/22 13:07 13:07 13:07 WBC 19.2 H RBC 2.61 L Hgb 7.1 L Hct 22.8 L MCV 87.4 MCH 27.2 MCHC 31.1 L RDW Std Deviation 53.8 H RDW Coeff of Luis 17.2 H Plt Count 735 H MPV 10.2 Immature Gran % (Auto) 1.200 H Neut % (Auto) 87.8 H Lymph % (Auto) 4.5 L Piatt % (Auto) 5.1 Eos % (Auto) 1.2 Baso % (Auto) 0.2 Absolute Neuts (auto) 16.8 H Absolute Lymphs (auto) 0.87 Nucleated RBC % 0 PT 16.6 H INR 1.3 APTT 38.4 H Sodium 134 L Potassium 4.2 Chloride 102 Carbon Dioxide 27.0 Anion Gap 5 BUN 38 H Creatinine 0.47 L Estim Creat Clear Calc 64.86 Est GFR (MDRD) Af Amer 225 Est GFR (MDRD) Non-Af 186 BUN/Creatinine Ratio 81.2 H Glucose 165 H Lactic Acid Calcium 8.8 Total Bilirubin 0.20 AST 78 H ALT 150 H Alkaline Phosphatase 210 H Total Protein 6.6 Albumin 1.4 L Globulin 5.2 H Albumin/Globulin Ratio 0.3 L Urine Color Urine Clarity Urine pH Ur Specific [place] Urine Protein Urine Glucose (UA) Urine Ketones Urine Occult Blood Urine Nitrite Urine Bilirubin Urine Urobilinogen Ur Leukocyte Esterase Urine RBC Urine WBC Ur Squamous Epith Cells Urine Bacteria Urine Mucus Blood Type Antibody Screen 12/17/22 12/17/22 12/17/22 13:08 14:00 14:15 WBC RBC Hgb Hct MCV MCH MCHC RDW Std Deviation RDW Coeff of Luis Plt Count MPV Immature Gran % (Auto) Neut % (Auto) Lymph % (Auto) [place]att % (Auto) Eos % (Auto) Baso % (Auto) Absolute Neuts (auto) Absolute Lymphs (auto) Nucleated RBC % PT INR APTT Sodium Potassium Chloride Carbon Dioxide Anion Gap BUN Creatinine Estim Creat Clear Calc Est GFR (MDRD) Af Amer Est GFR (MDRD) Non-Af BUN/Creatinine Ratio Glucose Lactic Acid 1.1 Calcium Total Bilirubin AST ALT Alkaline Phosphatase Total Protein Albumin Globulin Albumin/Globulin Ratio Urine Color Yellow Urine Clarity Cloudy Urine pH 7.0 Ur Specific [place] 1.005 Urine Protein 30 H Urine Glucose (UA) Normal Urine Ketones Negative Urine Occult Blood 50 H Urine Nitrite Negative Urine Bilirubin Negative Urine Urobilinogen Normal Ur Leukocyte Esterase 500 H Urine RBC 0 SEEN Urine WBC >100 SEEN Ur Squamous Epith Cells 0 SEEN Urine Bacteria 0 SEEN Urine Mucus 0 SEEN Blood Type O POSITIVE Antibody Screen NEGATIVE Radiography Diagnostic Testing: Clinical Impression(s) from Imaging Studies Foot X-Ray 12/17/22 14:28 IMPRESSION: Stable findings of the head of the 4th and 5th metatarsal heads concerning for chronic osteomyelitis. Electronically Signed: Henry Victoria MD at 15:11 EDT Reading Location ID and State: [facility] / MD , Service support , EKG Initial EKG: Attestation: I personally reviewed and interpreted this EKG as follows: Interpretation: Sinus Rhythm (Rate is 78. There is left axis deviation. There is low voltage. OK interval is 152 ms. Cures duration 78 ms. QT duration 390 ms.) Discharge Plan Dx/Rx/DC Orders Clinical Impression: Cellulitis of leg, right, Hyperlipidemia, Leukocytosis, Acute on chronic anemia, Acute hypotension, Prerenal azotemia, Peripheral arterial disease Disposition Disposition: [facility]
[2022-12-17] MEDS: Lactated Ringers 1,000 ML 999 ML IV (19:02)
--- NOTE | 2022-12-17 20:34 | PCM.HP.STD ---
HPI - General General Date of Admission: 12/17/22 Date of Service: 12/17/22 Chief Complaint: Abnormal labs and wound infection HPI Narrative NIKOLAS ADAMS, is a 72 M who is a resident of a long term with a history of severe peripheral arterial disease and chronic ischemic wounds in both lower extremities, severe protein calorie malnutrition and multiple other chronic medical problems. Patient presents from the long term due to suspected infection of wounds and abnormal labs. Hemoglobin noted to be low at 6.5 repeated here was 7.1. Patient also noted to be hypotensive slightly and has been given IV fluids. Noted to have a white count of 19 as well. Sister is in the room with patient and provides some of the history. Patient is a challenging historian. [facility] Medical History Anxiety and depression Atherosclerosis of right lower extremity with ulceration Bilateral carotid artery stenosis Cardiomyopathy Cervical spondylosis Cervical stenosis of spinal canal Cognitive dysfunction Decubitus ulcer, stage 4 with infection Dependent on walker for ambulation Dysphagia Esophageal dysphagia Essential (primary) hypertension Glucose intolerance (impaired glucose tolerance) History of alcohol abuse History of stroke (08/01/20) Hyperlipidemia Hyponatremia Mass of parotid gland MRSA (methicillin resistant Staphylococcus aureus) infection Non-pressure chronic ulcer of other part of right foot with necrosis of muscle Osteomyelitis, chronic, pelvis or thigh Osteomyelitis, pelvis Peripheral vascular disease, unspecified Peripheral vascular occlusive disease Presbycusis of both ears Sepsis Severe malnutrition Skin necrosis Skin ulcer of buttock with necrosis of muscle Smoker 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 Tobacco dependence due to cigarettes Home Medications pantoprazole 40 mg tablet,delayed release 40 mg PO BID ACID REFLUX 09/07/22 [History Last Taken 12/17/22] sertraline 100 mg tablet 100 mg PO DAILY DEPRESSION 09/07/22 [History Last Taken 12/17/22] tamsulosin 0.4 mg capsule 0.4 mg PO QHS PROSTATE 09/07/22 [History Last Taken 12/16/22] cholecalciferol (vitamin D3) 50 mcg (2,000 unit) capsule 50 mcg PO DAILY SUPPLEMENT 09/22/22 [History Last Taken 12/17/22] magnesium oxide 400 mg (241.3 mg magnesium) tablet (MagOx) 400 mg PO DAILY SUPPLEMENT 11/25/22 [History Last Taken 12/17/22] oxycodone 5 mg capsule 5 mg PO Q8H PRN Severe Pain (Scale Score 7-10) 12/09/22 [History Last Taken 12/17/22 08:00] Lactobacillus rhamnosus GG 10 billion cell capsule (Culturelle) 1 cap PO BID GUT GEALTH 12/17/22 [History Last Taken 12/17/22] amino acids-protein hydrolysate 17 gram-100 kcal/30 mL oral liquid (Pro-Stat AWC) 30 ml PO QHS WOUND CARE 12/17/22 [History Last Taken 12/16/22] amlodipine 5 mg tablet 5 mg PO DAILY BLOOD PRESSURE 12/17/22 [History Last Taken 12/17/22] ascorbic acid (vitamin C) 500 mg tablet 500 mg PO TID SUPPLEMENT 12/17/22 [History Last Taken 12/17/22] atorvastatin 40 mg tablet 40 mg PO QHS CHOLESTEROL 12/17/22 [History Last Taken 12/16/22] carvedilol 3.125 mg tablet (Coreg) 3.125 mg PO BID HEART 12/17/22 [History Last Taken 12/17/22] cephalexin 500 mg capsule 500 mg PO TID RT FOOT INFECTION 12/17/22 [History Last Taken 12/17/22] ferrous sulfate 300 mg (60 mg iron)/5 mL oral liquid See Rx Instructions .Route .COMPLEX 12/17/22 [History Last Taken 12/17/22] ipratropium 0.5 mg-albuterol 3 mg (2.5 mg base)/3 mL nebulization soln 3 ml inhalation 4XD SHORTNESS OF BREATH 12/17/22 [History Last Taken 12/17/22] mirtazapine 15 mg disintegrating tablet 15 mg PO QHS APPETITE 12/17/22 [History Last Taken 12/16/22] multivitamin,tx-minerals 1 tab PO DAILY SUPPLEMENT 12/17/22 [History Last Taken 12/17/22] nystatin-triamcinolone 100,000 unit/g-0.1 % topical cream 1 applic topical BID WOUND 12/17/22 [History Last Taken 12/17/22] sacubitril 24 mg-valsartan 26 mg tablet (Entresto) 1 tab PO BID BLOOD PRESSURE 12/17/22 [History Last Taken 12/17/22] sulfamethoxazole 800 mg-trimethoprim 160 mg tablet (Bactrim DS) 1 tab PO BID ANTIBIOTIC 12/17/22 [History Last Taken 12/17/22] Allergy/AdvReac Type Severity Reaction Status Date / Time No Known Allergies Allergy Verified 12/09/22 13:41 Family History Father Dementia Mother Dementia Social History household members: none Smoking Status: Former smoker Tobacco: How many years used: 40 Electronic Cigarette Use: with nicotine second hand exposure: Yes alcohol intake: former year quit: 2020 substance use type: does not use caffeine: Yes (4 cups daily) Type: coffee seatbelt use: sometimes ROS ROS Narrative Denies any chest pain or shortness of breath. Denies any nausea vomiting. Appetite is poor and intake is low as well. All other systems reviewed and essentially negative. Vital Signs Vital Signs Vital Signs: 12/17/22 13:00 12/17/22 14:13 12/17/22 14:13 Temperature 35.8 C L Temperature Source Oral Pulse Rate 82 75 Respiratory Rate 18 13 Respiratory Effort Respiratory Depth Respiratory Pattern Blood Pressure 87/59 L 110/51 L Blood Pressure Mean 68 70 Blood Pressure Source Blood Pressure Position Blood Pressure Location Pulse Ox 95 97 Oxygen Delivery Method Nasal Cannula Nasal Cannula Nasal Cannula Oxygen Flow Rate (L/min) 2 2 2 12/17/22 14:27 12/17/22 15:23 12/17/22 16:57 Temperature 36.3 C L 36.3 C L Temperature Source Oral Oral Pulse Rate 75 16 L Respiratory Rate 13 16 Respiratory Effort Respiratory Depth Respiratory Pattern Normal Blood Pressure 96/52 L 104/68 Blood Pressure Mean 66 80 Blood Pressure Source Blood Pressure Position Blood Pressure Location Pulse Ox 93 95 Oxygen Delivery Method Nasal Cannula Nasal Cannula Oxygen Flow Rate (L/min) 3 3 12/17/22 18:40 12/17/22 18:35 12/17/22 18:40 Temperature 36.3 C L 36.3 C L Temperature Source Temporal Temporal Pulse Rate 78 78 Respiratory Rate 20 H 20 H Respiratory Effort Normal Non-Labored Respiratory Depth Normal Respiratory Pattern Normal Blood Pressure 102/58 L 102/58 L Blood Pressure Mean 72 72 Blood Pressure Source Monitor Blood Pressure Position Semi-Fowlers Blood Pressure Location Right Arm Pulse Ox 96 Oxygen Delivery Method Nasal Cannula Nasal Cannula Oxygen Flow Rate (L/min) 3 3 Weight Weight: 70.3 kg Body Mass Index (BMI) 21.6 Physical Exam Narrative General exam. Elderly man, chronically ill-appearing, depressed appearing, psychomotor retardation HEENT. Oral mucosa dry, conjunctiva pallor, no jaundice Neck. Neck is supple Heart. First and second heart sounds heard no murmurs Lungs were clear to auscultation anteriorly Abdomen. 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 Conscious alert and oriented x3. Patient is hard of hearing Extremities. Multiple wounds/ulcers on both lower extremities. Large gangrenous eschar over dorsum of the right foot, full-thickness ulceration of the left heel with surrounding erythema. Scabbed ulcer on the ramirez which expresses purulence. Right foot with dry gangrene of the great toe and distal second toe also with multiple other ulcers. Results Medical Records Data Attestation: I reviewed the patient's medical records Lab / Micro Data Attestation: I reviewed the patient's lab results. Result Diagrams: 12/17/22 13:07 12/17/22 13:07 Labs: Laboratory Results - last 24 hr 12/17/22 13:07: WBC 19.2 H, RBC 2.61 L, Hgb 7.1 L, Hct 22.8 L, MCV 87.4, MCH 27.2, MCHC 31.1 L, RDW Std Deviation 53.8 H, RDW Coeff of Luis 17.2 H, Plt Count 735 H, MPV 10.2, Immature Gran % (Auto) 1.200 H, Neut % (Auto) 87.8 H, Lymph % (Auto) 4.5 L, [place] % (Auto) 5.1, Eos % (Auto) 1.2, Baso % (Auto) 0.2, Absolute Neuts (auto) 16.8 H, Absolute Lymphs (auto) 0.87, Nucleated RBC % 0 12/17/22 13:07: PT 16.6 H, INR 1.3, APTT 38.4 H 12/17/22 13:07: Sodium 134 L, Potassium 4.2, Chloride 102, Carbon Dioxide 27.0, Anion Gap 5, BUN 38 H, Creatinine 0.47 L, Estim Creat Clear Calc 64.86, Est GFR (MDRD) Af Amer 225, Est GFR (MDRD) Non-Af 186, BUN/Creatinine Ratio 81.2 H, Glucose 165 H, Calcium 8.8, Total Bilirubin 0.20, AST 78 H, ALT 150 H, Alkaline Phosphatase 210 H, Total Protein 6.6, Albumin 1.4 L, Globulin 5.2 H, Albumin/Globulin Ratio 0.3 L 12/17/22 13:08: Blood Type O POSITIVE, Antibody Screen NEGATIVE 12/17/22 13:08: Crossmatch See Detail 12/17/22 14:00: Lactic Acid 1.1 12/17/22 14:15: Urine Color Yellow, Urine Clarity Cloudy, Urine pH 7.0, Ur Specific [place] 1.005, Urine Protein 30 H, Urine Glucose (UA) Normal, Urine Ketones Negative, Urine Occult Blood 50 H, Urine Nitrite Negative, Urine Bilirubin Negative, Urine Urobilinogen Normal, Ur Leukocyte Esterase 500 H, Urine RBC 0 SEEN, Urine WBC >100 SEEN, Ur Squamous Epith Cells 0 SEEN, Urine Bacteria 0 SEEN, Urine Mucus 0 SEEN Radiology Impression Foot X-Ray 12/17/22 14:28 IMPRESSION: Stable findings of the head of the 4th and 5th metatarsal heads concerning for chronic osteomyelitis. Electronically Signed: Henry Victoria MD at 15:11 EDT , Assessment & Plan Assessment/Plan (1) Foot osteomyelitis: PLAN: Plan Assessment and plan 1. Severe sepsis. Secondary to infected ischemic wounds and ulcers on both lower extremities. Patient also known to have stage IV sacral decubitus ulcer. This was not examined by myself. Possible source of infection from there as well. Cultures have been obtained. Patient has had IV antibiotics and has received IV fluid boluses. Monitor closely. Keep on telemetry. We will continue with IV Zosyn and vancomycin and IV fluids/crystalloids. 2. Multiple ischemic wounds in both lower extremities including dry gangrene to the left great toe and distal second toe, dry gangrenous eschar over the dorsum of the right foot and what appears to be more likely decubitus/pressure ulcer, at least stage III on the right heel. Purulence expressed from ramirez wound on the right. Possible underlying osteomyelitis or abscesses. Will order MRI of both lower extremities. Patient has severe peripheral arterial disease and has been considered for revascularization. Very likely will need it now in order to allow wound healing with or without surgery. We will consult podiatry surgery and vascular surgery. May need CT angiogram but will defer to vascular surgery. Consult wound care as well. IV antibiotics and local wound care. 3. Severe protein calorie malnutrition. Definitely impacting current illness and potential for recovery and healing. 4. Severe anemia. Anemia of chronic disease. Likely related to malnutrition. Will transfuse with 1 unit of packed red blood cells. Charges/Coding Visit Charges Inpatient E&M: 65585 Init Hosp L3
[2022-12-17] MEDS: KCl 20MEQ in D5NS 20 MEQ/1,000 ML IV.SOLN. 100 MEQ IV (20:55)
--- NOTE | 2022-12-17 22:00 | EX.PCM.CON.G ---
HPI Consult Data Date of Consult: 12/17/22 HPI Narrative Reason for Consultation: anemia HPI Narrative: NIKOLAS ADAMS, is a 72 M who is a resident of a residential with a history of severe peripheral arterial disease and chronic ischemic wounds in both lower extremities, severe protein calorie malnutrition and multiple other chronic medical problems.? Patient presents from the residential due to suspected infection of wounds and abnormal labs.? Hemoglobin noted to be low at 6.5 repeated here was 7.1.? Patient also noted to be hypotensive slightly and has been given IV fluids.? Noted to have a white count of 19 as well.? Sister is in the room with patient and provides some of the history.? Patient is a challenging historian. During his last hospital admission it was noted that during the patient's hospital stay he had a hard time swallowing food and liquids and he suctioned himself frequently, it was recommended by speech therapy that he undergo a procedure to determine why he had difficulty swallowing-speech therapy did not want to give the patient a barium swallow.? Patient initially did not want a PEG tube inserted, after explaining the need for a PEG tube due to his malnutrition and the fact that he was having trouble swallowing, he consented to an EGD and a PEG tube insertion.? On 11/06/2022, patient underwent an EGD which showed a distal esophageal stenotic area which was possibly cancer, no biopsy was done however due to the fact the patient's tissue was friable and bleeding.? Gastroenterology was able however to insert a PEG tube and he tolerated the procedure well.?? I was consulted today regarding the patient's worsening anemia [facility] Medical History Anxiety and depression Atherosclerosis of right lower extremity with ulceration Bilateral carotid artery stenosis Cardiomyopathy Cervical spondylosis Cervical stenosis of spinal canal Cognitive dysfunction Decubitus ulcer, stage 4 with infection Dependent on walker for ambulation Dysphagia Esophageal dysphagia Essential (primary) hypertension Glucose intolerance (impaired glucose tolerance) History of alcohol abuse History of stroke (08/01/20) Hyperlipidemia Hyponatremia Mass of parotid gland MRSA (methicillin resistant Staphylococcus aureus) infection Non-pressure chronic ulcer of other part of right foot with necrosis of muscle Osteomyelitis, chronic, pelvis or thigh Osteomyelitis, pelvis Peripheral vascular disease, unspecified Peripheral vascular occlusive disease Presbycusis of both ears Sepsis Severe malnutrition Skin necrosis Skin ulcer of buttock with necrosis of muscle Smoker 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 Tobacco dependence due to cigarettes Home Medications pantoprazole 40 mg tablet,delayed release 40 mg PO BID ACID REFLUX 09/07/22 [History Last Taken 12/17/22] sertraline 100 mg tablet 100 mg PO DAILY DEPRESSION 09/07/22 [History Last Taken 12/17/22] tamsulosin 0.4 mg capsule 0.4 mg PO QHS PROSTATE 09/07/22 [History Last Taken 12/16/22] cholecalciferol (vitamin D3) 50 mcg (2,000 unit) capsule 50 mcg PO DAILY SUPPLEMENT 09/22/22 [History Last Taken 12/17/22] magnesium oxide 400 mg (241.3 mg magnesium) tablet (MagOx) 400 mg PO DAILY SUPPLEMENT 11/25/22 [History Last Taken 12/17/22] oxycodone 5 mg capsule 5 mg PO Q8H PRN Severe Pain (Scale Score 7-10) 12/09/22 [History Last Taken 12/17/22 08:00] Lactobacillus rhamnosus GG 10 billion cell capsule (Culturelle) 1 cap PO BID GUT GEALTH 12/17/22 [History Last Taken 12/17/22] amino acids-protein hydrolysate 17 gram-100 kcal/30 mL oral liquid (Pro-Stat AWC) 30 ml PO QHS WOUND CARE 12/17/22 [History Last Taken 12/16/22] amlodipine 5 mg tablet 5 mg PO DAILY BLOOD PRESSURE 12/17/22 [History Last Taken 12/17/22] ascorbic acid (vitamin C) 500 mg tablet 500 mg PO TID SUPPLEMENT 12/17/22 [History Last Taken 12/17/22] atorvastatin 40 mg tablet 40 mg PO QHS CHOLESTEROL 12/17/22 [History Last Taken 12/16/22] carvedilol 3.125 mg tablet (Coreg) 3.125 mg PO BID HEART 12/17/22 [History Last Taken 12/17/22] cephalexin 500 mg capsule 500 mg PO TID RT FOOT INFECTION 12/17/22 [History Last Taken 12/17/22] ferrous sulfate 300 mg (60 mg iron)/5 mL oral liquid See Rx Instructions .Route .COMPLEX 12/17/22 [History Last Taken 12/17/22] ipratropium 0.5 mg-albuterol 3 mg (2.5 mg base)/3 mL nebulization soln 3 ml inhalation 4XD SHORTNESS OF BREATH 12/17/22 [History Last Taken 12/17/22] mirtazapine 15 mg disintegrating tablet 15 mg PO QHS APPETITE 12/17/22 [History Last Taken 12/16/22] multivitamin,tx-minerals 1 tab PO DAILY SUPPLEMENT 12/17/22 [History Last Taken 12/17/22] nystatin-triamcinolone 100,000 unit/g-0.1 % topical cream 1 applic topical BID WOUND 12/17/22 [History Last Taken 12/17/22] sacubitril 24 mg-valsartan 26 mg tablet (Entresto) 1 tab PO BID BLOOD PRESSURE 12/17/22 [History Last Taken 12/17/22] sulfamethoxazole 800 mg-trimethoprim 160 mg tablet (Bactrim DS) 1 tab PO BID ANTIBIOTIC 12/17/22 [History Last Taken 12/17/22] Allergy/AdvReac Type Severity Reaction Status Date / Time No Known Allergies Allergy Verified 12/09/22 13:41 Family History Father Dementia Mother Dementia Social History household members: none Smoking Status: Former smoker Tobacco: How many years used: 40 Electronic Cigarette Use: with nicotine second hand exposure: Yes alcohol intake: former year quit: 2020 substance use type: does not use caffeine: Yes (4 cups daily) Type: coffee seatbelt use: sometimes ROS ROS Narrative Denies any chest pain or shortness of breath. Denies any nausea vomiting. Appetite is poor and intake is low as well. All other systems reviewed and essentially negative. Physical Exam Const alert, oriented x3 and no apparent distress General Appearance: cooperative HEENT normocephalic, head/scalp atraumatic, external ears normal and external nose normal General Ear: hearing grossly impaired Eyes EOMs intact bilaterally General Eye: normal appearance of both eyes Neck General: normal visual inspection and trachea midline Resp normal respiratory effort and no use of accessory muscles Effort and Inspection: able to speak in complete sentences; Negative for audible wheezes Auscultation: wheezes Cardio regular rate and regular rhythm Extremity Extremity Narrative: Bilateral lower extremities with dressings intact, prevalon boots on bilateral feet. Dressings were not removed for examination, but wound pictures were reviewed. L heel pressure ulceration with eschar overlying, left 5th toe and dorsum of foot with dry eschar, L 1st and 2nd toe with dry gangrene. R dorsum of foot with eschar overlying. R ankle with exposed tendon, R heel with thick yellow necrotic wound base. Neuro CN's II-XII intact bilaterally and moves all extremities Sensorium / Orientation: awake, alert, oriented to person and oriented to place Psych mental status grossly normal Appearance: grossly normal Activity / Motor Behavior: appropriate eye contact Speech: normal speech Lab / Micro Data Result Diagrams: 12/18/22 06:02 12/18/22 06:02 Labs: Laboratory Results - last 24 hr 12/17/22 13:08: Crossmatch See Detail 12/18/22 06:02: WBC 17.1 H, RBC 3.15 L, Hgb 8.7 L, Hct 26.9 L, MCV 85.4, MCH 27.6, MCHC 32.3, RDW Std Deviation 50.5 H, RDW Coeff of Luis 16.5 H, Plt Count 674 H, MPV 10.0 12/18/22 06:02: Sodium 138, Potassium 3.8, Chloride 108 H, Carbon Dioxide 25.0, Anion Gap 5, BUN 22 H, Creatinine 0.34 L, Estim Creat Clear Calc 64.44, Est GFR (MDRD) Af Amer 328, Est GFR (MDRD) Non-Af 271, BUN/Creatinine Ratio 65.1 H, Glucose 117 H, Calcium 8.1 L, Phosphorus 3.5, Magnesium 1.6, Total Bilirubin 0.60, AST 50 H, ALT 113 H, Alkaline Phosphatase 144 H, Total Protein 5.8 L, Albumin 1.2 L, Globulin 4.6 H, Albumin/Globulin Ratio 0.3 L, TSH 1.58 12/18/22 07:40: S.aureus Protein A PCR POSITIVE H, MRSA (PCR) POSITIVE H Micro: Microbiology 12/17/22 14:15 Urine Catheter - Soto Urine Culture - Preliminary Gram negative kareem 12/17/22 13:13 Wound - Leg, Right Gram Stain - Final 12/17/22 13:13 Wound - Leg, Right Wound Culture - Preliminary Streptococcus group A Radiology Impression Ankle X-Ray 12/18/22 07:50 IMPRESSION: Soft tissue swelling of the right ankle with ulceration over the lateral malleolus . No evidence for acute cortical erosion of the distal fibula. Ulceration posterior to the calcaneus with mild sclerosis of the calcaneal tuberosity, which may be reactive or secondary to chronic osteomyelitis. Electronically Signed: Lilian Robert MD at 10:36 EDT , Ankle X-Ray 12/18/22 07:50 IMPRESSION: Shallow superficial soft tissue ulcerations along the dorsal aspect of the forefoot. No definitive findings to suggest underlying osteomyelitis. Electronically Signed: Lalo HughesDO at 8:57 EDT , Foot X-Ray 12/18/22 07:50 IMPRESSION: 1. A few multifocal areas of soft tissue ulcerations. 2. Lytic changes along the medial margin of the fifth metatarsal head and relate to osteomyelitis. Additional areas of osteomyelitis are difficult to entirely exclude. Further assessment with bone scan or MRI is recommended. Electronically Signed: Lalo HughesDO at 9:05 EDT , Assessment & Plan Assessment/Plan (1) Sepsis: (2) Esophageal dysphagia: (3) Weight loss: (4) Acute on chronic anemia: PLAN: Plan 72 yo with osteomyelitis, acute sepsis secondary to deep wound infection of the left lower back and sacral/buttocks area with VRE and MRSA on antibiotics with a wound VAC in place. He also has severe chronic caloric and protein malnutrition-as evidenced by unintentional weight loss of 38.5 pounds x 8 months, estimated p.o. intake meeting less than 75% of estimated energy needs over 3 months secondary to progressive esophageal dysphagia. -Dysphagia- Severe esophageal stricture (possibly malignant) s/p dilation with alot of bleeding that was difficult to stop secondary to poor nutrition and heparin administration. -Protein calorie malnutrition- Severe. Peg tube was placed yesterday and he is tolerating tube feedings. -Anemia-he will undergo repeat upper endoscopy to evaluate his upper GI tract. Him and his power of claim attorney were explained alternatives, risk, benefits including outstanding bleeding, infection, sepsis, perforation, need for more discharge and . Have an ASA of 3.. Charges/Coding Visit Charges Inpatient E&M: 95469 Init Hosp L3
[2022-12-17] MEDS: Acetaminophen 500 MG Tablet 1000 MG PO (23:16)
[2022-12-17] MEDS: Ascorbic Acid 500 MG Tablet PO (23:17)
[2022-12-17] MEDS: Mirtazapine 15 MG Tablet PO (23:18)
[2022-12-18] VITALS (19 sets, daily range): BP systolic 84–140; BP diastolic 50–71; PULSE 75–95; RESP 16–18; TEMP 35.4–37.2; O2SAT 94–99; BMI 21.6
[2022-12-18] MEDS: Acetaminophen 500 MG Tablet 1000 MG PO (05:09)
[2022-12-18] MEDS: Ascorbic Acid 500 MG Tablet PO (05:09)
[2022-12-18 06:31] LABS: Hematocrit 26.9 % (40-54); Hemoglobin 8.7 g/dL (13.0-16.5); Mean Corp Hgb Conc 32.3 g/dL (32-36); Mean Corpuscular Hgb 27.6 pg (27.0-32.0); Mean Corpuscular Volume 85.4 fL (80-94); Platelet Count 674 K/mm3 (150-450); RBC Distribution Width CV 16.5 % (11.6-14.6); RBC Distribution Width SD 50.5 fl (35.1-43.9); Red Blood Count 3.15 M/mm3 (4.6-6.2); White Blood Count 17.1 K/mm3 (4.4-11.0)
[2022-12-18] MEDS: KCl 20MEQ in D5NS 20 MEQ/1,000 ML IV.SOLN. 100 MEQ IV (06:51)
[2022-12-18 07:12] LABS: ALB/GLOB Ratio 0.3 RATIO (0.9-2.4); AST(SGOT) 50 U/L (15-37); Alanine Aminotransfer ALT/SGPT 113 U/L (16-61); Albumin, Serum 1.2 g/dL (3.2-5.0); Alkaline Phosphatase 144 U/L (45-117); Anion Gap 5 (5-15); BUN 22 mg/dL (7-18); BUN/Creat Ratio 65.1 RATIO (10-20); Calcium,Total 8.1 mg/dL (8.5-10.1); Chloride 108 mmol/L (98-107); Creatinine, Serum 0.34 mg/dL (0.70-1.30); EST Glomerular Filtration Rate 271 mL/min (>60); Est Glom Filt Rate - Afr Amer 328 mL/min (>60); Estimated Creatinine Clearance 64.44 ml/min; Globulin 4.6 g/dL (2.2-4.2); Glucose 117 mg/dL (74-106); Magnesium 1.6 mg/dL (1.6-2.6); Phosphorus 3.5 mg/dL (2.5-4.9); Potassium 3.8 mmol/L (3.5-5.1); Protein, Total 5.8 g/dL (6.4-8.2); Sodium Level 138 mmol/L (136-145); Thyroid Stim Hormone (TSH) 1.58 uIU/mL (0.358-3.74)
--- NOTE | 2022-12-18 07:37 | CON.PCM_ITS ---
Assessment & Plan Assessment/Plan (1) Atherosclerosis of [place] arteries of extremities with gangrene, bilateral legs: (2) Peripheral arterial disease: PLAN: Plan Evaluation performed. Reviewed diagnostic data. Foot/ankle changes are c/w his know PAD, there may be some cellulitis to the left ankle as the wounds are draining. Ordered bilateral ankle xrays and left foot xrays. Left foot xray was completed yesterday. A culture has been obtained of the right ankle wounds. Result pending. Patient is on IV Zosyn, and also got dose of Vancomycin yesterday. MRSA PCR for left ankle wound ordered. Wound care: betadine and gauze dressing changes daily. Keep ulcers and heels offloaded at all times. No immediate plans for podiatric surgery as wounds are chronic, will proceed with above plan unless gas or more severe infection develops. HPI Consult Data Date of Consult: 12/19/22 HPI Narrative Reason for Consultation: Ischemic foot/ankle ulcers - chronic HPI Narrative: NIKOLAS ADAMS, is a 72 M who presents withchronic foot and ankle ischemic ulcerations. Patient with hx of PAD and awaiting vascular intervention. Patient has multiple medication problems, and awaiting optimization for vascular procedures. The ulcers are chronic. He sleeping this morning. He is on antibiotics. He is not talking this morning. 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 Bilateral carotid artery stenosis Cardiomyopathy Cervical spondylosis Cervical stenosis of spinal canal Cognitive dysfunction Decubitus ulcer, stage 4 with infection Dependent on walker for ambulation Dysphagia Esophageal dysphagia Essential (primary) hypertension Glucose intolerance (impaired glucose tolerance) History of alcohol abuse History of stroke (08/01/20) Hyperlipidemia Hyponatremia Mass of parotid gland MRSA (methicillin resistant Staphylococcus aureus) infection Non-pressure chronic ulcer of other part of right foot with necrosis of muscle Osteomyelitis, chronic, pelvis or thigh Osteomyelitis, pelvis Peripheral vascular disease, unspecified Peripheral vascular occlusive disease Presbycusis of both ears Sepsis Severe malnutrition Skin necrosis Skin ulcer of buttock with necrosis of muscle Smoker 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 Tobacco dependence due to cigarettes Home Medications pantoprazole 40 mg tablet,delayed release 40 mg PO BID ACID REFLUX 09/07/22 [History Last Taken 12/17/22] sertraline 100 mg tablet 100 mg PO DAILY DEPRESSION 09/07/22 [History Last Taken 12/17/22] tamsulosin 0.4 mg capsule 0.4 mg PO QHS PROSTATE 09/07/22 [History Last Taken 12/16/22] cholecalciferol (vitamin D3) 50 mcg (2,000 unit) capsule 50 mcg PO DAILY SUPPLEMENT 09/22/22 [History Last Taken 12/17/22] magnesium oxide 400 mg (241.3 mg magnesium) tablet (MagOx) 400 mg PO DAILY SUPPLEMENT 11/25/22 [History Last Taken 12/17/22] oxycodone 5 mg capsule 5 mg PO Q8H PRN Severe Pain (Scale Score 7-10) 12/09/22 [History Last Taken 12/17/22 08:00] Lactobacillus rhamnosus GG 10 billion cell capsule (Culturelle) 1 cap PO BID GUT GEALTH 12/17/22 [History Last Taken 12/17/22] amino acids-protein hydrolysate 17 gram-100 kcal/30 mL oral liquid (Pro-Stat AWC) 30 ml PO QHS WOUND CARE 12/17/22 [History Last Taken 12/16/22] amlodipine 5 mg tablet 5 mg PO DAILY BLOOD PRESSURE 12/17/22 [History Last Taken 12/17/22] ascorbic acid (vitamin C) 500 mg tablet 500 mg PO TID SUPPLEMENT 12/17/22 [History Last Taken 12/17/22] atorvastatin 40 mg tablet 40 mg PO QHS CHOLESTEROL 12/17/22 [History Last Taken 12/16/22] carvedilol 3.125 mg tablet (Coreg) 3.125 mg PO BID HEART 12/17/22 [History Last Taken 12/17/22] cephalexin 500 mg capsule 500 mg PO TID RT FOOT INFECTION 12/17/22 [History Last Taken 12/17/22] ferrous sulfate 300 mg (60 mg iron)/5 mL oral liquid See Rx Instructions .Route .COMPLEX 12/17/22 [History Last Taken 12/17/22] ipratropium 0.5 mg-albuterol 3 mg (2.5 mg base)/3 mL nebulization soln 3 ml inhalation 4XD SHORTNESS OF BREATH 12/17/22 [History Last Taken 12/17/22] mirtazapine 15 mg disintegrating tablet 15 mg PO QHS APPETITE 12/17/22 [History Last Taken 12/16/22] multivitamin,tx-minerals 1 tab PO DAILY SUPPLEMENT 12/17/22 [History Last Taken 12/17/22] nystatin-triamcinolone 100,000 unit/g-0.1 % topical cream 1 applic topical BID WOUND 12/17/22 [History Last Taken 12/17/22] sacubitril 24 mg-valsartan 26 mg tablet (Entresto) 1 tab PO BID BLOOD PRESSURE 12/17/22 [History Last Taken 12/17/22] sulfamethoxazole 800 mg-trimethoprim 160 mg tablet (Bactrim DS) 1 tab PO BID ANTIBIOTIC 12/17/22 [History Last Taken 12/17/22] Allergy/AdvReac Type Severity Reaction Status Date / Time No Known Allergies Allergy Verified 12/09/22 13:41 Family History Father Dementia Mother Dementia Social History household members: none Smoking Status: Former smoker Tobacco: How many years used: 40 Electronic Cigarette Use: with nicotine second hand exposure: Yes alcohol intake: former year quit: 2020 substance use type: does not use caffeine: Yes (4 cups daily) Type: coffee seatbelt use: sometimes Physical Exam Narrative Multiple areas of dry gangrene to the left foot - to the anterior ankle, posterior heel and to the toes of the forefoot - dry and stable, no evidence of acute ischemia. Right foot with dry gangrene to the dorsal foot, there is also draining fibrotic ulceration to the lateral ankle with visible peroneal tendons and to the posterior heel down to deep tissue, there is erythema to the lateral foot and ankle, no evidence of acute ischemia. No visible abscess, no maloder, no crepitus, no fluctuance bilateral foot or ankle. Lab / Micro Data Result Diagrams: 12/19/22 05:38 12/19/22 05:38 Labs: Laboratory Results - last 24 hr 12/17/22 13:07: WBC 19.2 H, RBC 2.61 L, Hgb 7.1 L, Hct 22.8 L, MCV 87.4, MCH 27.2, MCHC 31.1 L, RDW Std Deviation 53.8 H, RDW Coeff of Luis 17.2 H, Plt Count 735 H, MPV 10.2, Immature Gran % (Auto) 1.200 H, Neut % (Auto) 87.8 H, Lymph % (Auto) 4.5 L, [place] % (Auto) 5.1, Eos % (Auto) 1.2, Baso % (Auto) 0.2, Absolute Neuts (auto) 16.8 H, Absolute Lymphs (auto) 0.87, Nucleated RBC % 0 12/17/22 13:07: PT 16.6 H, INR 1.3, APTT 38.4 H 12/17/22 13:07: Sodium 134 L, Potassium 4.2, Chloride 102, Carbon Dioxide 27.0, Anion Gap 5, BUN 38 H, Creatinine 0.47 L, Estim Creat Clear Calc 64.86, Est GFR (MDRD) Af Amer 225, Est GFR (MDRD) Non-Af 186, BUN/Creatinine Ratio 81.2 H, Glucose 165 H, Calcium 8.8, Total Bilirubin 0.20, AST 78 H, ALT 150 H, Alkaline Phosphatase 210 H, Total Protein 6.6, Albumin 1.4 L, Globulin 5.2 H, Albumin /Globulin Ratio 0.3 L 12/17/22 13:08: Blood Type O POSITIVE, Antibody Screen NEGATIVE 12/17/22 13:08: Crossmatch See Detail 12/17/22 14:00: Lactic Acid 1.1 12/17/22 14:15: Urine Color Yellow, Urine Clarity Cloudy, Urine pH 7.0, Ur Specific [place] 1.005, Urine Protein 30 H, Urine Glucose (UA) Normal, Urine Ketones Negative, Urine Occult Blood 50 H, Urine Nitrite Negative, Urine Bilirubin Negative, Urine Urobilinogen Normal, Ur Leukocyte Esterase 500 H, Urine RBC 0 SEEN, Urine WBC >100 SEEN, Ur Squamous Epith Cells 0 SEEN, Urine Bacteria 0 SEEN, Urine Mucus 0 SEEN 12/18/22 06:02: WBC 17.1 H, RBC 3.15 L, Hgb 8.7 L, Hct 26.9 L, MCV 85.4, MCH 27.6, MCHC 32.3, RDW Std Deviation 50.5 H, RDW Coeff of Luis 16.5 H, Plt Count 674 H, MPV 10.0 12/18/22 06:02: Sodium 138, Potassium 3.8, Chloride 108 H, Carbon Dioxide 25.0, Anion Gap 5, BUN 22 H, Creatinine 0.34 L, Estim Creat Clear Calc 64.44, Est GFR (MDRD) Af Amer 328, Est GFR (MDRD) Non-Af 271, BUN/Creatinine Ratio 65.1 H, Glucose 117 H, Calcium 8.1 L, Phosphorus 3.5, Magnesium 1.6, Total Bilirubin 0.60, AST 50 H, ALT 113 H, Alkaline Phosphatase 144 H, Total Protein 5.8 L, Albumin 1.2 L, Globulin 4.6 H, Albumin/Globulin Ratio 0.3 L, TSH 1.58 Radiology Impression Foot X-Ray 12/17/22 14:28 IMPRESSION: Stable findings of the head of the 4th and 5th metatarsal heads concerning for chronic osteomyelitis. Electronically Signed: Henry Victoria MD at 15:11 EDT Reading Location ID and State: [facility] / [place] , Service support ,
--- NOTE | 2022-12-18 07:50 | RAD_ITS ---
INDICATION: ulcers, gangrene EXAMINATION/TECHNIQUE: X-RAY - LEFT XR Foot Min 3 Views 3 VIEWS COMPARISON: Left foot radiograph from 11/03/2022. FINDINGS: Shallow soft tissue ulceration along the dorsal aspect of the forefoot. Trace superficial subcutaneous emphysema and ulceration along the dorsal aspect of the first distal phalanx. Mild soft tissue swelling around the fifth MTP joint. No radiopaque foreign bodies. There are some lytic changes along the medial margin of the fifth metatarsal head. No acute fracture or subluxation. 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 Additional areas of mild to moderate osteoarthritis. RAD/Foot min 3 Views IMPRESSION: 1. A few multifocal areas of soft tissue ulcerations. 2. Lytic changes along the medial margin of the fifth metatarsal head and relate to osteomyelitis. Additional areas of osteomyelitis are difficult to entirely exclude. Further assessment with bone scan or MRI is recommended. Electronically Signed: Lalo Hughes DO at 9:05 EDT ,
--- NOTE | 2022-12-18 07:50 | RAD_ITS ---
INDICATION: ULCERS EXAMINATION/TECHNIQUE: X-RAY - LEFT XR Ankle Min 3 Views 3 VIEWS COMPARISON: Left foot radiograph from 11/03/2022. FINDINGS: No acute fracture or subluxation. Joint spaces and ankle mortise are intact. Shallow superficial soft tissue ulcerations along the dorsal aspect of the forefoot. No radiopaque foreign bodies. No significant destructive or erosive changes. RAD/Ankle min 3 Views IMPRESSION: Shallow superficial soft tissue ulcerations along the dorsal aspect of the forefoot. No definitive findings to suggest underlying osteomyelitis. Electronically Signed: Lalo Hughes DO at 8:57 EDT ,
--- NOTE | 2022-12-18 07:50 | RAD_ITS ---
HISTORY: ulcers. TECHNIQUE: XR Ankle Min 3 Views. COMPARISON: None. FINDINGS: BONES : No acute fracture or cortical erosion identified. Mild sclerosis of the calcaneal tuberosity. JOINTS: No dislocation. Joint spaces maintained. SOFT TISSUES: Ulceration over the lateral malleolus. Ulceration posterior to the calcaneus. Moderate soft tissue swelling. RAD/Ankle min 3 Views IMPRESSION: Soft tissue swelling of the right ankle with ulceration over the lateral malleolus . No evidence for acute cortical erosion of the distal fibula. Ulceration posterior to the calcaneus with mild sclerosis of the calcaneal tuberosity, which may be reactive or secondary to chronic osteomyelitis. Electronically Signed: Lilian Robert MD at 10:36 EDT ,
--- NOTE | 2022-12-18 09:29 | WOUNDNOTE ---
wound photo: right foot
--- NOTE | 2022-12-18 09:30 | WOUNDNOTE ---
wound photo: right lateral ankle/foot
--- NOTE | 2022-12-18 09:31 | WOUNDNOTE ---
wound photo: right heel
--- NOTE | 2022-12-18 09:31 | WOUNDNOTE ---
wound photo: left foot
[2022-12-18] MEDS: 0.9% Saline Lock 10 ML Syringe IV ×3 (09:32→13:52)
[2022-12-18] MEDS: Lactated Ringers 1,000 ML 75 ML IV (09:32)
--- NOTE | 2022-12-18 09:32 | WOUNDNOTE ---
wound photo: left heel
--- NOTE | 2022-12-18 09:33 | WOUNDNOTE ---
wound photo: sacrum/left buttock
--- NOTE | 2022-12-18 10:00 | MRI_ITS ---
INDICATION: LEG WOUNDS, ATTN RT ANKLE PER DR RIVERS EXAMINATION: MRI - RIGHT MR Ankle W/O Contrast TECHNIQUE: Multiplanar and multisequence MR images of the right ankle. IV Contrast Dosage and Agent: None. COMPARISON: Right ankle radiograph December 18, 2022 FINDINGS: SOFT TISSUES: Subcutaneous soft tissue edema and ulceration lateral to the lateral malleolus and posterior lateral to the posterior calcaneus. No organized fluid collection or suggestion of abscess on this noncontrast exam. No diffuse air artifact. BONE: Distal fibular lateral malleolus intraosseous edema with T1 signal loss consistent with osteomyelitis, sagittal T1 image 5. Similar marrow edema throughout signal loss at the posterior lateral calcaneus, axial image 19. Otherwise normal general bone marrow signal JOINT: Articular cartilage intact. Normal alignment of the ankle and imaged foot. Minimal tibiotalar joint fluid without gross effusion. LIGAMENTS: The syndesmotic ligaments, lateral collateral ligaments, and medial collateral ligaments are intact. TENDONS: Split tear peroneus brevis tendon at and just distal to the fibula with increased internal tendon signal. Medial ankle tendons and dorsal extensor tendons are unremarkable. Mild fluid surrounding dorsal tibialis tendon. MUSCLES: Normal bulk and signal. MISCELLANEOUS: Plantar fascia intact. Normal fat in the sinus tarsi. MRI/Lower Ext Joint Only (Routine) IMPRESSION: 1. Soft tissue ulcerations lateral to the lateral malleolus and posterior lateral to the posterior calcaneus with underlying osteomyelitis of the distal lateral fibula and posterior lateral calcaneus 2. Peroneus brevis split tear and just distal to the ankle 3. Trace ankle joint fluid of unknown significance, likely too small to sample, and possibly physiologic. Electronically Signed: Theodore Swann MD at 7:43 EDT ,
--- NOTE | 2022-12-18 10:08 | PCM.RX.CS ---
Consult Pharmacy has been consulted to manage selected antiobiotic: Vancomycin Type of Consult: New start Suspected Infection: Sepsis, Skin/Soft tissue Labs: Sodium 138 mmol/L (136-145) 12/18/22 06:02 Potassium 3.8 mmol/L (3.5-5.1) 12/18/22 06:02 Chloride 108 mmol/L (98-107) H 12/18/22 06:02 Carbon Dioxide 25.0 mmol/L (21.0-32.0) 12/18/22 06:02 Anion Gap 5 (5-15) 12/18/22 06:02 BUN 22 mg/dL (7-18) H 12/18/22 06:02 Creatinine 0.34 mg/dL (0.70-1.30) L 12/18/22 06:02 Est GFR (MDRD) Af Amer 328 mL/min (>60) 12/18/22 06:02 Est GFR (MDRD) Non-Af 271 mL/min (>60) 12/18/22 06:02 BUN/Creatinine Ratio 65.1 RATIO (10-20) H 12/18/22 06:02 Glucose 117 mg/dL (74-106) H 12/18/22 06:02 Microbiology: Microbiology 12/17/22 13:13 Wound - Leg, Right Gram Stain - Final Goal Trough: 15-20 mcg/mL Pharmacy Plan for Drug Dosing: NEW START IV VANCOMYCIN Consulting Physician: Dr. Amada Sullivan Indication: Wound infection Goal Trough: 15-20 SrCr: 0.34 CrCl: 64 mL/min Comments: Patient had 25mg/kg loading dose yesterday in ED. Vancomycin 1750mg IV x1 ordered and administered 12/17/22 @1522. Because of this, will not give initial 15mg/kg dose. We will just start scheduled dosing at this time. Vancomycin Dose: 750mg IV Q12hr to start 12/18/22 @1000 Pending Level: 12/19/22 @2130, prior to 4th dose of scheduled regimen. Note: Scheduled trough prior to 4th dose of scheduled regimen since pt's ED dose was ~20hrs from first scheduled dose of vancomycin. This may affect the true trough value if this dose was taken into consideration. Pharmacy Service will continue to monitor and adjust dosing as required.
--- NOTE | 2022-12-18 11:33 | CASEMGMT ---
Physician notified LETTY that patient and his family are interested in talking to Hospice. LETTY met with patient's brother Efra who was in the room. Patient was sleeping. Efra confirmed that they would like [facility]. LETTY told Efra Hospice will give him a call to arrange a meeting. Efra said at some point patient would like to make his sister Eva his Healthcare Power of Tech Intern. LETTY can assist with this as able. LETTY called Hospice regarding referral and also faxed over information. Crystal Jolly COMMERCIAL MANAGEMENT ACCOUNTANT STACEY
--- NOTE | 2022-12-18 12:45 | CASEMGMT ---
SW received a call from [facility] and they will meet with patient and family at 2p today. Crystal Jolly CLINICAL OUTCOMES MANAGER STACEY
[2022-12-18 13:12] LABS: M R Staph aureus DNA By PCR POSITIVE (Negative); Probe Check PASS; Staph aureus DNA By PCR POSITIVE (Negative)
--- NOTE | 2022-12-18 13:55 | PCM.CONS.GEN ---
Assessment & Plan Assessment/Plan (1) Foot osteomyelitis: PLAN: Cont vanc/zosyn. Podiatry following, wound cx so far with staph aureus, GAS, GNR. Will follow, thank you HPI Consult Data Date of Consult: 12/18/22 HPI Narrative HPI Narrative: NIKOLAS ADAMS, is a 72 M with PAD, recurrent osteo, presented from [facility] with hypotension, anemia, worsening skin wounds. Pt denies any pain, no fever, no abd pain, no n/v/d. Unable to provide much history. Admitted here 12/17, started on vanc/zosyn. Full ROS performed and neg except as noted above. [facility] Medical History Anxiety and depression Atherosclerosis of right lower extremity with ulceration Bilateral carotid artery stenosis Cardiomyopathy Cervical spondylosis Cervical stenosis of spinal canal Cognitive dysfunction Decubitus ulcer, stage 4 with infection Dependent on walker for ambulation Dysphagia Esophageal dysphagia Essential (primary) hypertension Glucose intolerance (impaired glucose tolerance) History of alcohol abuse History of stroke (08/01/20) Hyperlipidemia Hyponatremia Mass of parotid gland MRSA (methicillin resistant Staphylococcus aureus) infection Non-pressure chronic ulcer of other part of right foot with necrosis of muscle Osteomyelitis, chronic, pelvis or thigh Osteomyelitis, pelvis Peripheral vascular disease, unspecified Peripheral vascular occlusive disease Presbycusis of both ears Sepsis Severe malnutrition Skin necrosis Skin ulcer of buttock with necrosis of muscle Smoker 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 Tobacco dependence due to cigarettes Home Medications pantoprazole 40 mg tablet,delayed release 40 mg PO BID ACID REFLUX 09/07/22 [History Last Taken 12/17/22] sertraline 100 mg tablet 100 mg PO DAILY DEPRESSION 09/07/22 [History Last Taken 12/17/22] tamsulosin 0.4 mg capsule 0.4 mg PO QHS PROSTATE 09/07/22 [History Last Taken 12/16/22] cholecalciferol (vitamin D3) 50 mcg (2,000 unit) capsule 50 mcg PO DAILY SUPPLEMENT 09/22/22 [History Last Taken 12/17/22] magnesium oxide 400 mg (241.3 mg magnesium) tablet (MagOx) 400 mg PO DAILY SUPPLEMENT 11/25/22 [History Last Taken 12/17/22] oxycodone 5 mg capsule 5 mg PO Q8H PRN Severe Pain (Scale Score 7-10) 12/09/22 [History Last Taken 12/17/22 08:00] Lactobacillus rhamnosus GG 10 billion cell capsule (Culturelle) 1 cap PO BID GUT GEALTH 12/17/22 [History Last Taken 12/17/22] amino acids-protein hydrolysate 17 gram-100 kcal/30 mL oral liquid (Pro-Stat AWC) 30 ml PO QHS WOUND CARE 12/17/22 [History Last Taken 12/16/22] amlodipine 5 mg tablet 5 mg PO DAILY BLOOD PRESSURE 12/17/22 [History Last Taken 12/17/22] ascorbic acid (vitamin C) 500 mg tablet 500 mg PO TID SUPPLEMENT 12/17/22 [History Last Taken 12/17/22] atorvastatin 40 mg tablet 40 mg PO QHS CHOLESTEROL 12/17/22 [History Last Taken 12/16/22] carvedilol 3.125 mg tablet (Coreg) 3.125 mg PO BID HEART 12/17/22 [History Last Taken 12/17/22] cephalexin 500 mg capsule 500 mg PO TID RT FOOT INFECTION 12/17/22 [History Last Taken 12/17/22] ferrous sulfate 300 mg (60 mg iron)/5 mL oral liquid See Rx Instructions .Route .COMPLEX 12/17/22 [History Last Taken 12/17/22] ipratropium 0.5 mg-albuterol 3 mg (2.5 mg base)/3 mL nebulization soln 3 ml inhalation 4XD SHORTNESS OF BREATH 12/17/22 [History Last Taken 12/17/22] mirtazapine 15 mg disintegrating tablet 15 mg PO QHS APPETITE 12/17/22 [History Last Taken 12/16/22] multivitamin,tx-minerals 1 tab PO DAILY SUPPLEMENT 12/17/22 [History Last Taken 12/17/22] nystatin-triamcinolone 100,000 unit/g-0.1 % topical cream 1 applic topical BID WOUND 12/17/22 [History Last Taken 12/17/22] sacubitril 24 mg-valsartan 26 mg tablet (Entresto) 1 tab PO BID BLOOD PRESSURE 12/17/22 [History Last Taken 12/17/22] sulfamethoxazole 800 mg-trimethoprim 160 mg tablet (Bactrim DS) 1 tab PO BID ANTIBIOTIC 12/17/22 [History Last Taken 12/17/22] Allergy/AdvReac Type Severity Reaction Status Date / Time No Known Allergies Allergy Verified 12/09/22 13:41 Family History Father Dementia Mother Dementia Social History household members: none Smoking Status: Former smoker Tobacco: How many years used: 40 Electronic Cigarette Use: with nicotine second hand exposure: Yes alcohol intake: former year quit: 2020 substance use type: does not use caffeine: Yes (4 cups daily) Type: coffee seatbelt use: sometimes Physical Exam Const no apparent distress General Appearance: lethargic HEENT normocephalic and head/scalp atraumatic Eyes PERRL and EOMs intact bilaterally Neck supple and No nodes Resp normal air movement and clear to auscultation bilaterally Cardio regular rate and regular rhythm GI soft to palpation, non-tender and non-distended Extremity General Extremity: Negative for edema Skin Skin Narrative: reviewed wound photos Neuro CN's II-XII intact bilaterally Lab / Micro Data Attestation: I reviewed the patient's lab results. Result Diagrams: 12/18/22 06:02 12/18/22 06:02 Labs: Laboratory Results - last 24 hr 12/17/22 13:08: Blood Type O POSITIVE, Antibody Screen NEGATIVE 12/17/22 13:08: Crossmatch See Detail 12/17/22 14:00: Lactic Acid 1.1 12/17/22 14:15: Urine Color Yellow, Urine Clarity Cloudy, Urine pH 7.0, Ur Specific [place] 1.005, Urine Protein 30 H, Urine Glucose (UA) Normal, Urine Ketones Negative, Urine Occult Blood 50 H, Urine Nitrite Negative, Urine Bilirubin Negative, Urine Urobilinogen Normal, Ur Leukocyte Esterase 500 H, Urine RBC 0 SEEN, Urine WBC >100 SEEN, Ur Squamous Epith Cells 0 SEEN, Urine Bacteria 0 SEEN, Urine Mucus 0 SEEN 12/18/22 06:02: WBC 17.1 H, RBC 3.15 L, Hgb 8.7 L, Hct 26.9 L, MCV 85.4, MCH 27.6, MCHC 32.3, RDW Std Deviation 50.5 H, RDW Coeff of Luis 16.5 H, Plt Count 674 H, MPV 10.0 12/18/22 06:02: Sodium 138, Potassium 3.8, Chloride 108 H, Carbon Dioxide 25.0, Anion Gap 5, BUN 22 H, Creatinine 0.34 L, Estim Creat Clear Calc 64.44, Est GFR (MDRD) Af Amer 328, Est GFR (MDRD) Non-Af 271, BUN/Creatinine Ratio 65.1 H, Glucose 117 H, Calcium 8.1 L, Phosphorus 3.5, Magnesium 1.6, Total Bilirubin 0.60, AST 50 H, ALT 113 H, Alkaline Phosphatase 144 H, Total Protein 5.8 L, Albumin 1.2 L, Globulin 4.6 H, Albumin/Globulin Ratio 0.3 L, TSH 1.58 12/18/22 07:40: S.aureus Protein A PCR POSITIVE H, MRSA (PCR) POSITIVE H Micro: Microbiology 12/17/22 14:15 Urine Catheter - [place] Urine Culture - Preliminary Gram negative kareem 12/17/22 13:13 Wound - Leg, Right Gram Stain - Final 12/17/22 13:13 Wound - Leg, Right Wound Culture - Preliminary Streptococcus group A Radiology Impression Foot X-Ray 12/17/22 14:28 IMPRESSION: Stable findings of the head of the 4th and 5th metatarsal heads concerning for chronic osteomyelitis. Electronically Signed: Henry Victoria MD at 15:11 EDT , Ankle X-Ray 12/18/22 07:50 IMPRESSION: Soft tissue swelling of the right ankle with ulceration over the lateral malleolus . No evidence for acute cortical erosion of the distal fibula. Ulceration posterior to the calcaneus with mild sclerosis of the calcaneal tuberosity, which may be reactive or secondary to chronic osteomyelitis. Electronically Signed: Lilian Robert MD at 10:36 EDT , Ankle X-Ray 12/18/22 07:50 IMPRESSION: Shallow superficial soft tissue ulcerations along the dorsal aspect of the forefoot. No definitive findings to suggest underlying osteomyelitis. Electronically Signed: Lalo Hughes DO at 8:57 EDT , Foot X-Ray 12/18/22 07:50 IMPRESSION: 1. A few multifocal areas of soft tissue ulcerations. 2. Lytic changes along the medial margin of the fifth metatarsal head and relate to osteomyelitis. Additional areas of osteomyelitis are difficult to entirely exclude. Further assessment with bone scan or MRI is recommended. Electronically Signed: Lalo Hughes DO at 9:05 EDT ,
--- NOTE | 2022-12-18 14:20 | CASEMGMT ---
Discharge Planning [facility]. Updates sent via [employer]. Nina Ramon, Discharge Planning Asst.
--- NOTE | 2022-12-18 15:27 | PN.HOSP_ITS ---
Reason for Visit Reason for Visit: Profound anemia on recent lab Subjective Subjective Patient is a 72-year-old white male who presented to the emergency department at [facility] due to abnormal lab work showing profound anemia having hemoglobin at 6.5. And wound infection. The patient is well-known to this institution has had multiple medical admissions at this institution since August 2022. He has multiple chronic comorbidities. As noted his hemoglobin was found to be at 6.5 at [facility] with a repeat here at 7.1. This is dramatically different than his baseline. He was also found to be hypotensive and have a white count of 19,000. He has been having at [facility] since August of this past year and had ongoing care by Dr. Reese for chronic bilateral lower extremity vascular wounds. Prior to his admission here in August she was admitted to another facility at which time he was diagnosed with a severe bleeding duodenal ulcer and has had ongoing issues with anemia and bleeding since that point in time. Vital signs at the time of admission showed a temperature of 96.5, heart rate 82, blood pressure 87/59, respiratory rate 18, oxygen saturations 95% on 2 L nasal cannula which is his baseline. His CBC showed a leukocytosis with a white count of 19.2 and anemia with a hemoglobin of 7.1 (baseline is 8-9), his platelet count was elevated and is so at baseline but higher than typical at 735,000. His chemistry panel was overall unremarkable. His LFTs were mildly elevated with an AST of 78 and an ALT of 150. Albumin is extremely low at 1.4. His UA was not consistent with infection. His wound PCR and serum PCR for MRSA were both positive. Blood cultures were obtained, wound cultures were obtained, and urine cultures were obtained. Current wound cultures are demonstrating Staph aureus, group a strep, and a gram-negative kareem lactose location director, urine culture shows gram-negative kareem in his blood culture are pending. I evaluated him the day after admission. He was sleeping soundly however his brother was at the bedside. We did have extensive discussion and that he had recently met with [facility] as he is coming up on his 100- day limit for benefits. The overall plan was to continue to stay at [facility] and pad a pocket as the patient is happy there. Upon further discussion his family had wanted discussed hospice as well. We did have hospice evaluate the patient today and the plan of care made at this time is to discharge back to [facility] to complete rehab days and see how he does clinically if he does not do well then transition to hospice if he continues to improve they will continue with more aggressive care. Objective Data Objective Data Vital Signs: Vital Signs Temp Pulse Resp BP Pulse Ox O2 Del Method O2 Flow Rate 97.5 F L 85 18 111/54 L 95 Nasal Cannula 2 12/18/22 15:08 12/18/22 15:08 12/18/22 15:08 12/18/22 15:08 12/18/22 07:43 12/18/22 15:08 12/18/22 15:08 FiO2 3 12/17/22 21:52 Oxygen Flow Rate (L/min) 2 Oxygen Delivery Method Nasal Cannula Weight: 70.3 kg Body Mass Index (BMI) 21.6 Intake & Output: Intake and Output for Last 24 Hours 12/16/22 12/17/22 12/18/22 23:59 23:59 23:59 Intake Total 4035 / 4035 2431.17 / 2431.17 Balance 4035 / 4035 2431.17 / 2431.17 Lab / Micro Data Result Diagrams: 12/18/22 06:02 12/18/22 06:02 Labs: Laboratory Results - last 24 hr 12/17/22 13:08: Crossmatch See Detail 12/18/22 06:02: WBC 17.1 H, RBC 3.15 L, Hgb 8.7 L, Hct 26.9 L, MCV 85.4, MCH 27.6, MCHC 32.3, RDW Std Deviation 50.5 H, RDW Coeff of Luis 16.5 H, Plt Count 674 H, MPV 10.0 12/18/22 06:02: Sodium 138, Potassium 3.8, Chloride 108 H, Carbon Dioxide 25.0, Anion Gap 5, BUN 22 H, Creatinine 0.34 L, Estim Creat Clear Calc 64.44, Est GFR (MDRD) Af Amer 328, Est GFR (MDRD) Non-Af 271, BUN/Creatinine Ratio 65.1 H, Glucose 117 H, Calcium 8.1 L, Phosphorus 3.5, Magnesium 1.6, Total Bilirubin 0.60, AST 50 H, ALT 113 H, Alkaline Phosphatase 144 H, Total Protein 5.8 L, Albu min 1.2 L, Globulin 4.6 H, Albumin/Globulin Ratio 0.3 L, TSH 1.58 12/18/22 07:40: S.aureus Protein A PCR POSITIVE H, MRSA (PCR) POSITIVE H Micro: Microbiology 12/17/22 14:15 Urine Catheter - Soto Urine Culture - Preliminary Gram negative kareem 12/17/22 13:13 Wound - Leg, Right Gram Stain - Final 12/17/22 13:13 Wound - Leg, Right Wound Culture - Preliminary Streptococcus group A Radiography Diagnostic Testing: Radiology Impression Ankle X-Ray 12/18/22 07:50 IMPRESSION: Soft tissue swelling of the right ankle with ulceration over the lateral malleolus . No evidence for acute cortical erosion of the distal fibula. Ulceration posterior to the calcaneus with mild sclerosis of the calcaneal tuberosity, which may be reactive or secondary to chronic osteomyelitis. Electronically Signed: Lilian Robert MD at 10:36 EDT , Ankle X-Ray 12/18/22 07:50 IMPRESSION: Shallow superficial soft tissue ulcerations along the dorsal aspect of the forefoot. No definitive findings to suggest underlying osteomyelitis. Electronically Signed: Lalo Hughes DO at 8:57 EDT , Foot X-Ray 12/18/22 07:50 IMPRESSION: 1. A few multifocal areas of soft tissue ulcerations. 2. Lytic changes along the medial margin of the fifth metatarsal head and relate to osteomyelitis. Additional areas of osteomyelitis are difficult to entirely exclude. Further assessment with bone scan or MRI is recommended. Electronically Signed: Lalo Hughes DO at 9:05 EDT , Physical Exam Const no apparent distress; Negative for healthy appearing or well nourished Constitutional Narrative: Elderly, white male, appears much older than stated age and appears chronically ill, lying in bed, sleeping soundly, brother at bedside HEENT head/scalp atraumatic and moist oral mucous membranes HEENT Narrative: Mallampati 2-3, no thrush Head and Scalp: normocephalic Resp normal respiratory effort, no retractions, no use of accessory muscles and clear to auscultation bilaterally Resp Narrative: Diffusely diminished but clear, patient is mouth breathing while sleeping Auscultation: Negative for rales, rhonchi or wheezes Cardio regular rate, regular rhythm, S1 normal heart sound, S2 normal heart sound, no murmurs, no rub, no gallops and no clicks GI normal to inspection, nondistended, normoactive bowel sounds, soft to palpation and non-tender Extremity no clubbing, cyanosis or edema Extremity Narrative: Lean muscle mass Skin Skin Narrative: Bilateral lower foot wounds consistent with dry gangrene-multiple wounds present on bilateral lower extremities, pressure ulcer that seems to be clean and dry without signs of infection on his left buttock, tendon exposure on right lateral ankle Neuro Neuro Narrative: Sleeping soundly-unable to examine Psych Psych Narrative: Patient is sleeping soundly and unable to examine at this time Assessment & Plan Assessment/Plan (1) Foot osteomyelitis: (2) Cellulitis of leg, right: (3) Leukocytosis: (4) Acute hypotension: (5) Acute on chronic anemia: (6) UTI (urinary tract infection): (7) Severe malnutrition: (8) Dysphagia: PLAN: Plan Bilateral foot osteomyelitis -No sepsis present on presentation -Podiatry is following and feels that these are stable overall -No immediate surgical plans unless gas or more severe infection develops -Lower extremity MRI pending -Continue broad-spectrum antibiotics with vancomycin and Zosyn -Wound cultures polymicrobial -Blood cultures are pending -Infectious diseases following Gram-negative UTI -Continue antibiotics as noted above -ID following and appreciate input Acute hypoxia -Patient on room air at baseline -Currently requiring 2 L nasal cannula -Wean oxygen as able -No significant concerns for pulmonary infection -may need discharged on oxygen therapy Dysphagia -Speech therapy is following -Patient on modified diet and p.o. intake is extremely poor per discussion with his brother -Continue tube feeds via PEG after EGD Acute on chronic anemia -Suspect recurrent bleeding from his previously diagnosed duodenal ulcer -Patient transfused 1 unit on admission -Baseline hemoglobin 8-9 and hemoglobin on admission was between 6.5 and 7.1 -Current hemoglobin up to 8.7 after transfusion -Protonix drip -Hold DVT prophylaxis -Continue home supplemental iron -GI consulted for probable EGD later today Recent GI bleed secondary to duodenal ulcer -Hemoglobin is currently stable -Did require 5 units transfusion during hospitalization at [facility] -EGD performed and showed duodenal ulcer that required clipping?while at [facility] in August -Patient with multiple EGDs here with most recent being on 11/06/2022 that demonstrated esophageal stenosis which was dilated, severe erosive esophagitis which was injected and treated with heater probe, a medium size hiatal hernia, multiple nonbleeding duodenal ulcers with no stigmata of bleeding and a PEG was placed at that time to assist with nutrition -Currently on a Protonix drip for acute anemia -GI following-appreciate input Severe malnutrition -Continue tube feed via PEG -P.o. intake remains poor and brother reports he is really only eating ice creams and puddings -Dietitian following Pressure ulcer-unstageable -Cultures are pending -Antibiotics per infectious disease -Has had previous debridement in the OR by plastic surgery -Wound at this time is overall clean appearing without any signs of recurrent issues however nonhealing well likely related to his nutritional status and baseline chronic medical issues -Continue wound care -Appreciate plastic surgery involvement Acute on chronic urinary retention -Patient with Soto catheter from facility -Was placed at [facility] for severe urinary retention -Continue Flomax -Continue chronic Soto -Recommend outpatient follow-up with urology History of stroke/bilateral carotid stenosis/HTN/HPL -Restart statin -Hold diuresis -Hold Coreg until blood pressure improves -Hold lisinopril 20 mg daily due to borderline blood pressure on presentation -Hold amlodipine 10 mg daily due to borderline blood pressure on presentation Severe peripheral vascular disease -Aspirin/Plavix are on hold secondary to recurrent GI bleeding -Continue outpatient vascular follow-up -right TAMIE at 0.43 and left TAMIE at 0.33 BPH -Restart home Flomax Anxiety/depression -Continue sertraline History of alcohol abuse -Patient quit drinking following his stroke -Encourage continued sobriety Tobacco abuse -Encouraged cessation -Nicotine replacement available if desired DVT prophylaxis -SCDs -Chemoprophylaxis deferred due to recent GI bleeding CODE STATUS -Full code -We need to further discuss this patient's current goals do not seem consistent with that of being full code Disposition: -Hospice met with patient and family today. Plan is to discharge back to the [facility] facility and try with some rehab to use up the rest of his 100 days and if he does not progress during that time. Transition to hospice. Anticipate patient will likely be here through the weekend. Charges/Coding Visit Charges Inpatient E&M: 68710 Subs Hosp L3
--- NOTE | 2022-12-18 15:38 | CASEMGMT ---
LETTY completed Healthcare Power of [employer] papers with patient. Patient named his sister Eva as his primary and his brother Efra as the first alternate. LETTY made copies and gave them to patient along with the original. LETTY also placed a copy in patient's chart. LETTY spoke with Arturo from Hospice after she spoke with family. Per Arturo family would like to have patient go back skilled until his Medicare days are up January 03. Family would then like to take patient home on Hospice after that. LETTY confirmed this with patient's sister Eva. LETTY updated physician and [facility]. Plan: d/c back to [facility] skilled. Crystal IBARRA
--- NOTE | 2022-12-18 16:54 | EX.PCM.CON.S ---
Assessment & Plan Assessment/Plan (1) Cellulitis of leg, right: (2) Foot osteomyelitis: (3) Acute on chronic anemia: (4) Atherosclerosis of [place] arteries of extremities with gangrene, bilateral legs: PLAN: Plan Though both extremities have significant wounds and PAD, RLE is primary concern given active infection. Appears to be improving with current antibiotics, wound cultures are pending. MRI results for further evaluation of suspected osteomyelitis are pending. EGD scheduled for this evening which will help inform decision making with respect to vascular intervention. He has diffuse severe atherosclerotic disease of bilateral lower extremities with focal severe stenoses of the iliac and femoral arteries bilaterally which is significantly impairing his ability to heal. Unfortunately, he is not currently a good candidate for open vascular intervention. Could consider endovascular intervention if no active GI bleed is identified with understanding of the the risk that this could worsen the state of his leg and necessitate amputation. R AKA would be considered for palliation and/or infection source control. Discussed with patient and his sister Eva who is now POA. It is reasonable to continue with local palliative wound care as long as infection is controlled, and this is what they are currently electing to do. They would like to see how patient does through the weekend, learn of the results of the EGD, and reconsider options early next week. No further imaging necessary from vascular standpoint at this time. Will continue to follow. HPI Consult Data Date of Consult: 12/18/22 HPI Narrative HPI Narrative: NIKOLAS ADAMS, is a 72 M who presents presented to the emergency room on 12/17/2022 from [facility] due to low hemoglobin and concern for RLE wound infection. At [facility] his hemoglobin was noted to be 6.5, in the ER 7.1. He also had an elevated WBC of 19.2 and was hypotensive. Was admitted for IV antibiotics and work-up of his anemia. Patient is known to to me from past hospitalization and outpatient follow-up in our office. We have seeing him in relation to his multiple BLE wounds. He has significant peripheral arterial disease which would benefit from femoral endarterectomies; however patient's other significant comorbidities make him a poor candidate for open surgery. Have also considered endovascular intervention as an alternative; however, patient's recent history of severe GI bleed and persistent anemia creates contraindication for the dual antiplatelets/anticoagulant therapy that would be necessary following such an intervention. Therefore, we have been monitoring the progress of his wounds and his overall condition. Today, his hemoglobin has improved to 8.7 following 2 units of blood. Hypotension resolved with IV fluids. Xrays showed evidence of osteomyelitis, MRI was completed but report not yet available. He is on vancomycin and Zosyn. He is afebrile and WBC downtrending 17.1 today. Podiatry was consulted and directing wound care (Betadine and dry sterile dressing) with no plans for surgical intervention unless more severe infection develops. He will be placed in a sand/[id number] bed for improved offloading. He is scheduled for an EGD this evening to look for recurrence of GI bleed. He reports pain in the bilateral lower extremities with movement/touch but currently denies rest pain. He has no specific complaints. His sister is now his healthcare POA. He and his family had meeting with hospice today and decided that he will plan to discharge to SNF once stable with plans to ultimately transition to hospice care. 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 Bilateral carotid artery stenosis Cardiomyopathy Cervical spondylosis Cervical stenosis of spinal canal Cognitive dysfunction Decubitus ulcer, stage 4 with infection Dependent on walker for ambulation Dysphagia Esophageal dysphagia Essential (primary) hypertension Glucose intolerance (impaired glucose tolerance) History of alcohol abuse History of stroke (08/01/20) Hyperlipidemia Hyponatremia Mass of parotid gland MRSA (methicillin resistant Staphylococcus aureus) infection Non-pressure chronic ulcer of other part of right foot with necrosis of muscle Osteomyelitis, chronic, pelvis or thigh Osteomyelitis, pelvis Peripheral vascular disease, unspecified Peripheral vascular occlusive disease Presbycusis of both ears Sepsis Severe malnutrition Skin necrosis Skin ulcer of buttock with necrosis of muscle Smoker 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 Tobacco dependence due to cigarettes Home Medications pantoprazole 40 mg tablet,delayed release 40 mg PO BID ACID REFLUX 09/07/22 [History Last Taken 12/17/22] sertraline 100 mg tablet 100 mg PO DAILY DEPRESSION 09/07/22 [History Last Taken 12/17/22] tamsulosin 0.4 mg capsule 0.4 mg PO QHS PROSTATE 09/07/22 [History Last Taken 12/16/22] cholecalciferol (vitamin D3) 50 mcg (2,000 unit) capsule 50 mcg PO DAILY SUPPLEMENT 09/22/22 [History Last Taken 12/17/22] magnesium oxide 400 mg (241.3 mg magnesium) tablet (MagOx) 400 mg PO DAILY SUPPLEMENT 11/25/22 [History Last Taken 12/17/22] oxycodone 5 mg capsule 5 mg PO Q8H PRN Severe Pain (Scale Score 7-10) 12/09/22 [History Last Taken 12/17/22 08:00] Lactobacillus rhamnosus GG 10 billion cell capsule (Culturelle) 1 cap PO BID GUT GEALTH 12/17/22 [History Last Taken 12/17/22] amino acids-protein hydrolysate 17 gram-100 kcal/30 mL oral liquid (Pro-Stat AWC) 30 ml PO QHS WOUND CARE 12/17/22 [History Last Taken 12/16/22] amlodipine 5 mg tablet 5 mg PO DAILY BLOOD PRESSURE 12/17/22 [History Last Taken 12/17/22] ascorbic acid (vitamin C) 500 mg tablet 500 mg PO TID SUPPLEMENT 12/17/22 [History Last Taken 12/17/22] atorvastatin 40 mg tablet 40 mg PO QHS CHOLESTEROL 12/17/22 [History Last Taken 12/16/22] carvedilol 3.125 mg tablet (Coreg) 3.125 mg PO BID HEART 12/17/22 [History Last Taken 12/17/22] cephalexin 500 mg capsule 500 mg PO TID RT FOOT INFECTION 12/17/22 [History Last Taken 12/17/22] ferrous sulfate 300 mg (60 mg iron)/5 mL oral liquid See Rx Instructions .Route .COMPLEX 12/17/22 [History Last Taken 12/17/22] ipratropium 0.5 mg-albuterol 3 mg (2.5 mg base)/3 mL nebulization soln 3 ml inhalation 4XD SHORTNESS OF BREATH 12/17/22 [History Last Taken 12/17/22] mirtazapine 15 mg disintegrating tablet 15 mg PO QHS APPETITE 12/17/22 [History Last Taken 12/16/22] multivitamin,tx-minerals 1 tab PO DAILY SUPPLEMENT 12/17/22 [History Last Taken 12/17/22] nystatin-triamcinolone 100,000 unit/g-0.1 % topical cream 1 applic topical BID WOUND 12/17/22 [History Last Taken 12/17/22] sacubitril 24 mg-valsartan 26 mg tablet (Entresto) 1 tab PO BID BLOOD PRESSURE 12/17/22 [History Last Taken 12/17/22] sulfamethoxazole 800 mg-trimethoprim 160 mg tablet (Bactrim DS) 1 tab PO BID ANTIBIOTIC 12/17/22 [History Last Taken 12/17/22] Allergy/AdvReac Type Severity Reaction Status Date / Time No Known Allergies Allergy Verified 12/09/22 13:41 Family History Father Dementia Mother Dementia Social History household members: none Smoking Status: Former smoker Tobacco: How many years used: 40 Electronic Cigarette Use: with nicotine second hand exposure: Yes alcohol intake: former year quit: 2020 substance use type: does not use caffeine: Yes (4 cups daily) Type: coffee seatbelt use: sometimes Physical Exam Const alert, oriented x3 and no apparent distress General Appearance: cooperative HEENT normocephalic, head/scalp atraumatic, external ears normal and external nose normal General Ear: hearing grossly impaired Eyes EOMs intact bilaterally General Eye: normal appearance of both eyes Neck General: normal visual inspection and trachea midline Resp normal respiratory effort and no use of accessory muscles Effort and Inspection: able to speak in complete sentences; Negative for audible wheezes Auscultation: wheezes Cardio regular rate and regular rhythm Extremity Extremity Narrative: Bilateral lower extremities with dressings intact, prevalon boots on bilateral feet. Dressings were not removed for examination, but wound pictures were reviewed. L heel pressure ulceration with eschar overlying, left 5th toe and dorsum of foot with dry eschar, L 1st and 2nd toe with dry gangrene. R dorsum of foot with eschar overlying. R ankle with exposed tendon, R heel with thick yellow necrotic wound base. Neuro CN's II-XII intact bilaterally and moves all extremities Sensorium / Orientation: awake, alert, oriented to person and oriented to place Psych mental status grossly normal Appearance: grossly normal Activity / Motor Behavior: appropriate eye contact Speech: normal speech Lab / Micro Data Result Diagrams: 12/18/22 06:02 12/18/22 06:02 Labs: Laboratory Results - last 24 hr 12/17/22 13:08: Crossmatch See Detail 12/18/22 06:02: WBC 17.1 H, RBC 3.15 L, Hgb 8.7 L, Hct 26.9 L, MCV 85.4, MCH 27.6, MCHC 32.3, RDW Std Deviation 50.5 H, RDW Coeff of Luis 16.5 H, Plt Count 674 H, MPV 10.0 12/18/22 06:02: Sodium 138, Potassium 3.8, Chloride 108 H, Carbon Dioxide 25.0, Anion Gap 5, BUN 22 H, Creatinine 0.34 L, Estim Creat Clear Calc 64.44, Est GFR (MDRD) Af Amer 328, Est GFR (MDRD) Non-Af 271, BUN/Creatinine Ratio 65.1 H, Glucose 117 H, Calcium 8.1 L, Phosphorus 3.5, Magnesium 1.6, Total Bilirubin 0.60, AST 50 H, ALT 113 H, Alkaline Phosphatase 144 H, Total Protein 5.8 L, Albumin 1.2 L, Globulin 4.6 H, Albumin/Globulin Ratio 0.3 L, TSH 1.58 12/18/22 07:40: S.aureus Protein A PCR POSITIVE H, MRSA (PCR) POSITIVE H Micro: Microbiology 12/17/22 14:15 Urine Catheter - Soto Urine Culture - Preliminary Gram negative kareem 12/17/22 13:13 Wound - Leg, Right Gram Stain - Final 12/17/22 13:13 Wound - Leg, Right Wound Culture - Preliminary Streptococcus group A Radiology Impression Ankle X-Ray 12/18/22 07:50 IMPRESSION: Soft tissue swelling of the right ankle with ulceration over the lateral malleolus . No evidence for acute cortical erosion of the distal fibula. Ulceration posterior to the calcaneus with mild sclerosis of the calcaneal tuberosity, which may be reactive or secondary to chronic osteomyelitis. Electronically Signed: Lilian Robert MD at 10:36 EDT , Ankle X-Ray 12/18/22 07:50 IMPRESSION: Shallow superficial soft tissue ulcerations along the dorsal aspect of the forefoot. No definitive findings to suggest underlying osteomyelitis. Electronically Signed: Lalo Hughes DO at 8:57 EDT , Foot X-Ray 12/18/22 07:50 IMPRESSION: 1. A few multifocal areas of soft tissue ulcerations. 2. Lytic changes along the medial margin of the fifth metatarsal head and relate to osteomyelitis. Additional areas of osteomyelitis are difficult to entirely exclude. Further assessment with bone scan or MRI is recommended. Electronically Signed: Lalo Hughes DO at 9:05 EDT , Charges/Coding Visit Charges Inpatient E&M: 93291 Init Hosp L3
--- NOTE | 2022-12-18 17:45 | EGD_PTH ---
PATIENT: NIKOLAS ADAMS LOC: [facility] U#:[id number] AGE/SX: 72/M ROOM: [facility] RE12/17/[address]: Dr. Shankar Watts DO : 1950 BED: 1 DIS: 12/21/2022 SPEC #: [id number] RECD: 12/18/22 20:12 STATUS: ALYSSA REQ #: [id number] JUJU: 12/18/22 17:[address]: Baron Milton DEPT: SURGICAL PATHOLOGY RECD BY: Leonie Terry ENTERED: 12/21/22 09:34 SP TYPE: EGD BIOPSY OTHR DR: DO Dr. Shankar Velasco DO Dr. Eric Turney, MD Dr. Ifijen Oleghe, MD Dr. Jodi Hannan, MD Dr. Jeffrey Wunning, DPM Dr. Luanne Sullivan, MD Dr. Ramesh Young Dr., MD Melinda Salyers, [employer]-C Payal Chapman NP-C Tissues: Esophagus, NOS Procedures: Special Stain Group I Surgery Specimen Level IV GMS Stain (control) Comments: @ Ordering doctor for SUIV edited from to @ by CLAY at 12/21/22 144 @ Submitting doctor edited from to @ by RGOOD at 12/21/22 1443 HEADER OPERATION: EGD ([facility]) PRE-OP DIAGNOSIS: GI bleed TISSUE SUBMITTED: Esophageal stricture MICROSCOPIC DIAGNOSIS Esophageal stricture, biopsy: Acute and chronic inflammation, granulation tissue reaction and fibrinous exudation. See comment. SJ:nael 12/22/2022 COMMENT Overlying epithelium is not seen in the specimen. Special stain for fungi is negative for organisms; matched control is appropriate. Correlation with clinical, endoscopic findings and appropriate follow up are necessary. MICROSCOPIC DESCRIPTION Slides are reviewed. GROSS DESCRIPTION Received in fixative is one container labeled with the patient's name and designated esophageal stricture. The specimen consists of multiple irregular fragments of light barillas soft tissue that in aggregate measure 1.0 x 0.3 x 0.1 cm. The specimen is totally submitted in one cassette. / RO:nael 12/21/2022 TC:2 CPT: 01660, 04679
--- NOTE | 2022-12-18 18:54 | OP.EGD_ITS ---
Patient Name: Matt Villaseñor Procedure Date: 12/18/2022 6:17 PM Date of : 1950 Age: 72 Procedure: Upper GI endoscopy Indications: Iron deficiency anemia, Dysphagia Providers: Baron Milton DO Medicines: Monitored Anesthesia Care Patient Profile: This is a 72 year old male. Refer to note in patient chart for documentation of history and physical. Patient has symptoms of acute epigastric abdominal pain and acute nausea. Complications: No immediate complications. Procedure: Pre-Anesthesia Assessment: - Prior to the procedure, a History and Physical was performed, and patient medications and allergies were reviewed. The risks and benefits of the procedure and the sedation options and risks were discussed with the patient. All questions were answered and informed consent was obtained. Patient identification and proposed procedure were verified by the physician. Mental Status Examination: normal. Prophylactic Antibiotics: The patient does not require prophylactic antibiotics. Prior Anticoagulants: The patient has taken no previous anticoagulant or antiplatelet agents. ASA Grade Assessment: III - A patient with severe systemic disease. After reviewing the risks and benefits, the patient was deemed in satisfactory condition to undergo the procedure. The anesthesia plan was to use monitored anesthesia care (MAC). Immediately prior to administration of medications, the patient was re-assessed for adequacy to receive sedatives. The heart rate, respiratory rate, oxygen saturations, blood pressure, adequacy of pulmonary ventilation, and response to care were monitored throughout the procedure. The physical status of the patient was re-assessed after the procedure. After obtaining informed consent, the endoscope was passed under direct vision. Throughout the procedure, the patient's blood pressure, pulse, and oxygen saturations were monitored continuously. The gastroscope was introduced through the mouth, and advanced to the second part of duodenum. The upper GI endoscopy was accomplished without difficulty. The patient tolerated the procedure well. Scope In: 6:34:40 PM Scope Out: 6:45:06 PM Total Procedure Duration Time 0 hours 10 minutes 26 seconds Findings: LA Grade D (one or more mucosal breaks involving at least 75% of esophageal circumference) esophagitis with bleeding was found 34 to 40 cm from the incisors. Biopsies were taken with a cold forceps for histology. Verification of patient identification for the specimen was done. Estimated blood loss was minimal. One benign-appearing, intrinsic stenosis was found 37 to 40 cm from the incisors. This stenosis was severe (stenosis; an endoscope cannot pass) and. The stenosis was traversed after dilation. A TTS dilator was passed through the scope. Dilation with a 12-13.5-15 mm balloon dilator was performed to 14 mm. The dilation site was examined and showed moderate improvement in luminal narrowing. Estimated blood loss was minimal. A TTS dilator was passed through the scope. Dilation with a 12-13.5-15 mm balloon dilator was performed to 15 mm. The dilation site was examined following endoscope reinsertion and showed complete resolution of luminal narrowing. Many linear esophageal ulcers with oozing blood and stigmata of recent bleeding were found 37 to 40 cm from the incisors. Area was successfully injected with 10 mL of a 1:10,000 solution of epinephrine for drug delivery. Coagulation for hemostasis using heater probe was successful. Estimated blood loss was minimal. There was evidence of an intact gastrostomy with a patent G-tube present in the gastric body. This was characterized by healthy appearing mucosa. Patchy mild inflammation characterized by congestion (edema) and erythema was found in the duodenal bulb. Biopsies were taken with a cold forceps for histology. Impression: - LA Grade D chronic esophagitis. Biopsied. - Bleeding esophageal ulcers. Injected. Treated with a heater probe. - Intact gastrostomy with a patent G-tube present characterized by healthy appearing mucosa. - Duodenitis. Biopsied. Recommendation: - Await pathology results. - Continue present medications. Procedure Code(s): --- Professional --- 57972, 59, Esophagogastroduodenoscopy, flexible, transoral; with control of bleeding, any method 07556, Esophagogastroduodenoscopy, flexible, transoral; with transendoscopic balloon dilation of esophagus (less than 30 mm diameter) 14270, 59, Esophagogastroduodenoscopy, flexible, transoral; with directed submucosal injection(s), any substance 11539, 59,51, Esophagogastroduodenoscopy, flexible, transoral; with biopsy, single or multiple CPT copyright 2017 [employer]. All rights reserved. The codes documented in this report are preliminary and upon revenue research analyst review may be revised to meet current compliance requirements. Baron Milton DO 12/18/2022 6:54:20 PM This report has been signed electronically. Number of Addenda: 0 Note Initiated On: 12/18/2022 6:17 PM
--- NOTE | 2022-12-18 18:55 | OP.CCLET_ITS ---
12/18/2022 Edmundo Hahn MD [address] [place] [address] Re : Upper GI endoscopy procedure for Matt Villaseñor Dear Dr. Hahn This procedure was performed on Sunday, December 18, 2022. My impressions and recommendations are as follows: Impressions : - LA Grade D chronic esophagitis. Biopsied. - Bleeding esophageal ulcers. Injected. Treated with a heater probe. - Intact gastrostomy with a patent G-tube present characterized by healthy appearing mucosa. - Duodenitis. Biopsied. Recommendations : - Await pathology results. - Continue present medications. My findings are described in the full procedure note, which is enclosed. If I can be of further assistance, please feel free to contact me at . Sincerely, Baron Milton, 12/18/2022 6:54:20 PM This report has been signed electronically.
[2022-12-19] MEDS: Lactated Ringers 1,000 ML 75 ML IV ×2 (01:13→12:56)
[2022-12-19 04:20] VITALS: BP 121/61; PULSE 85; RESP 18; TEMP 35.7; O2SAT 95
[2022-12-19 06:30] LABS: Absolute Lymphocyte Count 0.78 X10^3/uL (0.83-4.51); Absolute Neutrophil Count 11.5 X10^3/uL (2.0-7.7); Basophil# 0.07 X10^3/uL; Basophil% 0.5 % (0-1); Eosinophil# 0.45 X10^3/uL; Eosinophils% 3.3 % (0-5); Hematocrit 27.1 % (40-54); Hemoglobin 8.7 g/dL (13.0-16.5); Lymphocyte # 0.78 X10^3/ul (0.83-4.51); Lymphocyte % 5.7 % (19-41); Mean Corp Hgb Conc 32.1 g/dL (32-36); Mean Corpuscular Hgb 27.6 pg (27.0-32.0); Mean Platelet Vol. 9.7 fl (6.2-12.0); Monocyte# 0.83 X10^3/uL; NRBC Flagged by Analyzer 0 % (0-5); Neutrophil # 11.51 X10^3/uL (2.7-7.7); Neutrophil % 83.7 % (47-70); Platelet Count 746 K/mm3 (150-450); RBC Distribution Width SD 53.1 fl (35.1-43.9); Red Blood Count 3.15 M/mm3 (4.6-6.2); White Blood Count 13.8 K/mm3 (4.4-11.0)
[2022-12-19 07:06] LABS: Anion Gap 6 (5-15); BUN 13 mg/dL (7-18); BUN/Creat Ratio 41.9 RATIO (10-20); Calcium,Total 8.4 mg/dL (8.5-10.1); Chloride 107 mmol/L (98-107); Creatinine, Serum 0.31 mg/dL (0.70-1.30); EST Glomerular Filtration Rate 300 mL/min (>60); Est Glom Filt Rate - Afr Amer 363 mL/min (>60); Estimated Creatinine Clearance 64.44 ml/min; Glucose 67 mg/dL (74-106); Magnesium 1.8 mg/dL (1.6-2.6); Potassium 3.7 mmol/L (3.5-5.1); Sodium Level 137 mmol/L (136-145)
--- NOTE | 2022-12-19 07:24 | PN_ITS ---
Subjective Subjective Patient was seen this morning for follow up on bilateral foot/ankle. He is resting in bed. WBC trending down. Had MRI right ankle yesterday. No fever. Objective Data Objective Data Vital Signs: Vital Signs Temp Pulse Resp BP Pulse Ox O2 Del Method O2 Flow Rate 96.3 F L 85 18 121/61 H 95 Nasal Cannula 2 12/19/22 04:20 12/19/22 04:20 12/19/22 04:20 12/19/22 04:20 12/19/22 04:20 12/19/22 04:23 12/19/22 04:23 FiO2 3 12/17/22 21:52 Oxygen Flow Rate (L/min) 2 Oxygen Delivery Method Nasal Cannula Weight: 70.3 kg Body Mass Index (BMI) 21.6 Intake & Output: Intake and Output for Last 24 Hours 12/17/22 12/18/22 12/19/22 23:59 23:59 23:59 Intake Total 4035 / 4035 3423.67 / 3423.67 237.5 / 237.5 Output Total 1500 / 1500 500 / 500 Balance 4035 / 4035 1923.67 / 1923.67 -262.5 / -262.5 Lab / Micro Data Result Diagrams: 12/19/22 05:38 12/19/22 05:38 Labs: Laboratory Results - last 24 hr 12/18/22 07:40: S.aureus Protein A PCR POSITIVE H, MRSA (PCR) POSITIVE H 12/19/22 05:38: WBC 13.8 H, RBC 3.15 L, Hgb 8.7 L, Hct 27.1 L, MCV 86.0, MCH 27.6, MCHC 32.1, RDW Std Deviation 53.1 H, RDW Coeff of Luis 17.0 H, Plt Count 746 H, MPV 9.7, Immature Gran % (Auto) 0.800, Neut % (Auto) 83.7 H, Lymph % (Auto) 5.7 L, [place] % (Auto) 6.0, Eos % (Auto) 3.3, Baso % (Auto) 0.5, Absolute Neuts (auto) 11.5 H, Absolute Lymphs (auto) 0.78 L, Nucleated RBC % 0 12/19/22 05:38: Sodium 137, Potassium 3.7, Chloride 107, Carbon Dioxide 24.0, Anion Gap 6, BUN 13, Creatinine 0.31 L, Estim Creat Clear Calc 64.44, Est GFR (MDRD) Af Amer 363, Est GFR (MDRD) Non-Af 300, BUN/Creatinine Ratio 41.9 H, Glucose 67 L, Calcium 8.4 L, Magnesium 1.8 Micro: Microbiology 12/17/22 14:15 Urine Catheter - Soto Urine Culture - Preliminary Gram negative kareem 12/17/22 13:13 Wound - Leg, Right Gram Stain - Final 12/17/22 13:13 Wound - Leg, Right Wound Culture - Preliminary Streptococcus group A Radiography Diagnostic Testing: Radiology Impression Ankle X-Ray 12/18/22 07:50 IMPRESSION: Soft tissue swelling of the right ankle with ulceration over the lateral malleolus . No evidence for acute cortical erosion of the distal fibula. Ulceration posterior to the calcaneus with mild sclerosis of the calcaneal tuberosity, which may be reactive or secondary to chronic osteomyelitis. Electronically Signed: Lilian Robert MD at 10:36 EDT , Ankle X-Ray 12/18/22 07:50 IMPRESSION: Shallow superficial soft tissue ulcerations along the dorsal aspect of the forefoot. No definitive findings to suggest underlying osteomyelitis. Electronically Signed: Lalo Hughes DO at 8:57 EDT , Foot X-Ray 12/18/22 07:50 IMPRESSION: 1. A few multifocal areas of soft tissue ulcerations. 2. Lytic changes along the medial margin of the fifth metatarsal head and relate to osteomyelitis. Additional areas of osteomyelitis are difficult to entirely exclude. Further assessment with bone scan or MRI is recommended. Electronically Signed: Lalo Hughes DO at 9:05 EDT , Physical Exam Narrative Multiple areas of dry gangrene to the left foot - to the anterior ankle, posterior heel and to the toes of the forefoot - dry and stable, no evidence of acute ischemia. Right foot with dry gangrene to the dorsal foot, there is also draining fibrotic ulceration to the lateral ankle with visible peroneal tendons and to the posterior heel down to deep tissue - improved, there is erythema to the lateral foot and ankle - improved, no evidence of acute ischemia. No visible abscess, no maloder, no crepitus, no fluctuance bilateral foot or ankle. Assessment & Plan Assessment/Plan (1) Atherosclerosis of [place] arteries of extremities with gangrene, bilateral legs: (2) Peripheral arterial disease: PLAN: Plan Evaluation performed. Reviewed diagnostic data. WBC trending down. Foot/ankle changes are c/w his know PAD, cellulitis to the right ankle as the wounds are draining - improved today. Reviewed imaging- on MRI findings c/w calcaneal and fibular osteomyelitis. Also on xray c/w osteomyelitis to 5th met head on left foot. A culture has been obtained of the right ankle wounds. Result pending, but +for MRSA on PCR. Patient is on IV Vancomycin and Zosyn. ID is on consult and following. Wound care: betadine and gauze dressing changes daily. Keep ulcers and heels offloaded at all times. No immediate plans for podiatric surgery as wounds are chronic, will proceed with above plan but will reconsider if acute worsening.
--- NOTE | 2022-12-19 07:49 | NURSING ---
according to Leonarda BOO at [facility], pt receives all meds through PEG tube. Tube feeds at [facility] were Isosource 1.5 60ml/hr continuous with 125cc water flush q6hr. Pt was allowed pleasure feeds with pureed textures, thin liquids.
[2022-12-19 08:30] VITALS: BP 146/64; PULSE 83; RESP 14; TEMP 36.6; O2SAT 98
[2022-12-19] MEDS: Sertraline 100 MG Tablet PO (09:18)
[2022-12-19] MEDS: Magnesium Chloride 64 MG Delay Rel.Tablet 128 MG PO (09:18)
--- NOTE | 2022-12-19 09:52 | EX.PCM.PN.GI ---
Subjective Subjective Patient underwent an upper endoscopy yesterday for acute blood loss anemia. He was discovered to have bleeding in the esophagus, esophageal stricture that was dilated and well-healing duodenal ulcer. Objective Data Objective Data Vital Signs: Vital Signs Temp Pulse Resp BP Pulse Ox O2 Del Method O2 Flow Rate 96.3 F L 85 18 121/61 H 95 Nasal Cannula 2 12/19/22 04:20 12/19/22 04:20 12/19/22 04:20 12/19/22 04:20 12/19/22 04:20 12/19/22 08:34 12/19/22 08:34 FiO2 3 12/17/22 21:52 Oxygen Flow Rate (L/min) 2 Oxygen Delivery Method Nasal Cannula Weight: 154 lb 15.759 oz Body Mass Index (BMI) 21.6 Intake & Output: Intake and Output for Last 24 Hours 12/17/22 12/18/22 12/19/22 23:59 23:59 23:59 Intake Total 4035 / 4035 3423.67 / 3423.67 337.5 / 337.5 Output Total 1500 / 1500 500 / 500 Balance 4035 / 4035 1923.67 / 1923.67 -162.5 / -162.5 Lab / Micro Data Result Diagrams: 12/19/22 05:38 12/19/22 05:38 Labs: Laboratory Results - last 24 hr 12/18/22 07:40: S.aureus Protein A PCR POSITIVE H, MRSA (PCR) POSITIVE H 12/19/22 05:38: WBC 13.8 H, RBC 3.15 L, Hgb 8.7 L, Hct 27.1 L, MCV 86.0, MCH 27.6, MCHC 32.1, RDW Std Deviation 53.1 H, RDW Coeff of Luis 17.0 H, Plt Count 746 H, MPV 9.7, Immature Gran % (Auto) 0.800, Neut % (Auto) 83.7 H, Lymph % (Auto) 5.7 L, [place] % (Auto) 6.0, Eos % (Auto) 3.3, Baso % (Auto) 0.5, Absolute Neuts (auto) 11.5 H, Absolute Lymphs (auto) 0.78 L, Nucleated RBC % 0 12/19/22 05:38: Sodium 137, Potassium 3.7, Chloride 107, Carbon Dioxide 24.0, Anion Gap 6, BUN 13, Creatinine 0.31 L, Estim Creat Clear Calc 64.44, Est GFR (MDRD) Af Amer 363, Est GFR (MDRD) Non-Af 300, BUN/Creatinine Ratio 41.9 H, Glucose 67 L, Calcium 8.4 L, Magnesium 1.8 Micro: Microbiology 12/17/22 14:15 Urine Catheter - Soto Urine Culture - Preliminary Gram negative kareem 12/17/22 13:13 Wound - Leg, Right Gram Stain - Final 12/17/22 13:13 Wound - Leg, Right Wound Culture - Preliminary Streptococcus group A Radiography Diagnostic Testing: Radiology Impression Ankle X-Ray 12/18/22 07:50 IMPRESSION: Soft tissue swelling of the right ankle with ulceration over the lateral malleolus . No evidence for acute cortical erosion of the distal fibula. Ulceration posterior to the calcaneus with mild sclerosis of the calcaneal tuberosity, which may be reactive or secondary to chronic osteomyelitis. Electronically Signed: Lilian Robert MD at 10:36 EDT , Lower Extremity MRI 12/18/22 10:00 IMPRESSION: 1. Soft tissue ulcerations lateral to the lateral malleolus and posterior lateral to the posterior calcaneus with underlying osteomyelitis of the distal lateral fibula and posterior lateral calcaneus 2. Peroneus brevis split tear and just distal to the ankle 3. Trace ankle joint fluid of unknown significance, likely too small to sample, and possibly physiologic. Electronically Signed: Theodore Swann MD at 7:43 EDT , Physical Exam Const alert, oriented x3 and no apparent distress General Appearance: cooperative HEENT normocephalic, head/scalp atraumatic, external ears normal and external nose normal General Ear: hearing grossly impaired Eyes EOMs intact bilaterally General Eye: normal appearance of both eyes Neck General: normal visual inspection and trachea midline Resp normal respiratory effort and no use of accessory muscles Effort and Inspection: able to speak in complete sentences; Negative for audible wheezes Auscultation: wheezes Cardio regular rate and regular rhythm Extremity Extremity Narrative: Bilateral lower extremities with dressings intact, prevalon boots on bilateral feet. Dressings were not removed for examination, but wound pictures were reviewed. L heel pressure ulceration with eschar overlying, left 5th toe and dorsum of foot with dry eschar, L 1st and 2nd toe with dry gangrene. R dorsum of foot with eschar overlying. R ankle with exposed tendon, R heel with thick yellow necrotic wound base. Neuro CN's II-XII intact bilaterally and moves all extremities Sensorium / Orientation: awake, alert, oriented to person and oriented to place Psych mental status grossly normal Appearance: grossly normal Activity / Motor Behavior: appropriate eye contact Speech: normal speech Assessment & Plan Assessment/Plan (1) Sepsis: (2) Esophageal dysphagia: (3) Weight loss: PLAN: Plan 72 yo with history of upper GI bleed secondary to duodenal ulcer. He also has severe chronic caloric and protein malnutrition-as evidenced by unintentional weight loss of 38.5 pounds x 8 months status post PEG tube. -Dysphagia- Severe esophageal stricture s/p dilation with alot of bleeding that was difficult to stop secondary to poor nutrition. Biopsies were taken. -Protein calorie malnutrition- Severe. Peg tube was placed yesterday and he is tolerating tube feedings. -Esophageal Stricture -if patient does bleed again and is readmitted he will need an esophageal stent.. Charges/Coding Visit Charges Inpatient E&M: 15642 Subs Hosp L3
[2022-12-19] MEDS: Ascorbic Acid 500 MG Tablet PO (12:57)
[2022-12-19] MEDS: Acetaminophen 500 MG Tablet 1000 MG PO (12:57)
--- NOTE | 2022-12-19 14:17 | PN.HOSP_ITS ---
Reason for Visit Reason for Visit: Abnormal labs Subjective Subjective No issues overnight. EGD was performed yesterday and demonstrated esophageal stricture that required dilation to get to an area of severe esophagitis/ulceration which was oozing. These areas were treated with heater probe. Hemoglobin is stable. Discussed plan with patient he prefers to be aggressive for now and try to get back doing some more therapy however plan is to transition to hospice if he meets his 100-day limit and still not improving. Objective Data Objective Data Vital Signs: Vital Signs Temp Pulse Resp BP Pulse Ox O2 Del Method O2 Flow Rate 97.8 F 83 14 146/64 H 98 Nasal Cannula 2 12/19/22 08:30 12/19/22 08:30 12/19/22 08:30 12/19/22 08:30 12/19/22 08:30 12/19/22 08:34 12/19/22 08:34 FiO2 3 12/17/22 21:52 Oxygen Flow Rate (L/min) 2 Oxygen Delivery Method Nasal Cannula Weight: 70.3 kg Body Mass Index (BMI) 21.6 Intake & Output: Intake and Output for Last 24 Hours 12/17/22 12/18/22 12/19/22 23:59 23:59 23:59 Intake Total 4035 / 4035 3423.67 / 3423.67 1546.08 / 1546.08 Output Total 1500 / 1500 1999 / 1999 Balance 4035 / 4035 1923.67 / 1923.67 -453.92 / -453.92 Lab / Micro Data Result Diagrams: 12/19/22 05:38 12/19/22 05:38 Labs: Laboratory Results - last 24 hr 12/19/22 05:38: WBC 13.8 H, RBC 3.15 L, Hgb 8.7 L, Hct 27.1 L, MCV 86.0, MCH 27.6, MCHC 32.1, RDW Std Deviation 53.1 H, RDW Coeff of Luis 17.0 H, Plt Count 746 H, MPV 9.7, Immature Gran % (Auto) 0.800, Neut % (Auto) 83.7 H, Lymph % ( Auto) 5.7 L, [place] % (Auto) 6.0, Eos % (Auto) 3.3, Baso % (Auto) 0.5, Absolute Neuts (auto) 11.5 H, Absolute Lymphs (auto) 0.78 L, Nucleated RBC % 0 12/19/22 05:38: Sodium 137, Potassium 3.7, Chloride 107, Carbon Dioxide 24.0, Anion Gap 6, BUN 13, Creatinine 0.31 L, Estim Creat Clear Calc 64.44, Est GFR (MDRD) Af Amer 363, Est GFR (MDRD) Non-Af 300, BUN/Creatinine Ratio 41.9 H, Glucose 67 L, Calcium 8.4 L, Magnesium 1.8 Micro: Microbiology 12/17/22 14:15 Urine Catheter - Soto Urine Culture - Final Enterobacter cloacae complex 12/17/22 13:13 Wound - Leg, Right Gram Stain - Final 12/17/22 13:13 Wound - Leg, Right Wound Culture - Final Streptococcus group A Radiography Diagnostic Testing: Radiology Impression Lower Extremity MRI 12/18/22 10:00 IMPRESSION: 1. Soft tissue ulcerations lateral to the lateral malleolus and posterior lateral to the posterior calcaneus with underlying osteomyelitis of the distal lateral fibula and posterior lateral calcaneus 2. Peroneus brevis split tear and just distal to the ankle 3. Trace ankle joint fluid of unknown significance, likely too small to sample, and possibly physiologic. Electronically Signed: Theodore Swann MD at 7:43 EDT , Physical Exam Const alert, oriented x3 and no apparent distress; Negative for healthy appearing or well nourished Constitutional Narrative: Elderly, white male, lying in bed, nursing services manager at the bedside getting cleaned up, appears comfortable, chronically ill, appears much older than stated age but nontoxic at this time HEENT head/scalp atraumatic and moist oral mucous membranes HEENT Narrative: Dentition is poor, Mallampati is 2, no thrush Head and Scalp: normocephalic Resp normal respiratory effort, no retractions, no use of accessory muscles and clear to auscultation bilaterally Resp Narrative: Diffusely diminished but clear Auscultation: Negative for rales, rhonchi or wheezes Cardio regular rate, regular rhythm, S1 normal heart sound, S2 normal heart sound, no murmurs, no rub, no gallops and no clicks GI normal to inspection, nondistended, normoactive bowel sounds, soft to palpation and non-tender GI Narrative: PEG site clean and dry intact Extremity no clubbing, cyanosis or edema Extremity Narrative: Decreased lean muscle mass, photographs of bilateral lower extremity wounds reviewed with significant eschar and tendons showing on his right leg, vascular wounds are severe but currently consistent with dry gangrene Skin Skin Narrative: Bilateral lower foot wounds consistent with dry gangrene-multiple wounds present on bilateral lower extremities, pressure ulcer that seems to be clean and dry without signs of infection on his left buttock, tendon exposure on right lateral ankle Neuro oriented x3 and moves all extremities Neuro Narrative: Marked generalized weakness but no focal deficits and able to move all extremities Speech: speech normal Psych Psych Narrative: Affect is flat but eye contact is good, mood is depressed however appropriate for current situation Assessment & Plan Assessment/Plan (1) Foot osteomyelitis: (2) Cellulitis of leg, right: (3) Leukocytosis: (4) Acute hypotension: (5) Acute on chronic anemia: (6) UTI (urinary tract infection): (7) Severe malnutrition: (8) Dysphagia: PLAN: Plan Bilateral foot osteomyelitis -No sepsis present on presentation -Podiatry is following and feels that these are stable overall -No immediate surgical plans unless gas or more severe infection develops -Lower extremity MRI demonstrates calcaneal and fibular osteomyelitis -White count is trending down -Continue broad-spectrum antibiotics with vancomycin and Zosyn -Wound cultures polymicrobial showing group A strep, Staph aureus, and Klebsiella -Blood cultures remain pending -Infectious diseases following Enterobacter cloacae UTI -Urine culture shows distance only to cefazolin for his Enterobacter UTI -Continue vancomycin and Zosyn at this time -ID following and appreciate input Acute hypoxia -Patient on room air at baseline -Currently requiring 2 L nasal cannula--> sats are 95 to 98% -Wean oxygen as able -No significant concerns for pulmonary infection -may need discharged on oxygen therapy Dysphagia -Speech therapy is following -Patient on modified diet and p.o. intake is extremely poor per discussion with his brother -Continue tube feeds via PEG after EGD Acute on chronic anemia -Suspect recurrent bleeding from his previously diagnosed duodenal ulcer -Patient transfused 1 unit on admission -Baseline hemoglobin 8-9 and hemoglobin on admission was between 6.5 and 7.1 -Hemoglobin is now stable at 8.7 -Transition Protonix drip tomorrow to lansoprazole via PEG -Hold DVT prophylaxis again for today and if remains stable will reinitiate DVT prophylaxis again tomorrow -Continue home supplemental iron -GI following-appreciate input Recent GI bleed secondary to duodenal ulcer/esophageal ulcers/severe esophagitis -Hemoglobin is currently stable -Did require 5 units transfusion during hospitalization at [facility] -EGD performed and showed duodenal ulcer that required clipping?while at [facility] in August -Patient with multiple EGDs here with most recent being on 11/06/2022 that demonstrated esophageal stenosis which was dilated, severe erosive esophagitis which was injected and treated with heater probe, a medium size hiatal hernia, multiple nonbleeding duodenal ulcers with no stigmata of bleeding and a PEG was placed at that time to assist with nutrition -Currently on a Protonix drip for acute anemia -GI following-appreciate input -Per GI if patient requires readmission again will need esophageal stenting Severe malnutrition -Continue tube feed via PEG -P.o. intake remains poor and brother reports he is really only eating ice creams and puddings -Restart tube feeds today along with free water -Dietitian following Pressure ulcer-unstageable -Cultures are pending -Antibiotics per infectious disease -Has had previous debridement in the OR by plastic surgery -Wound at this time is overall clean appearing without any signs of recurrent issues however nonhealing well likely related to his nutritional status and baseline chronic medical issues -Continue wound care -Appreciate plastic surgery involvement Acute on chronic urinary retention -Patient with Soto catheter from facility -Was placed at [facility] for severe urinary retention -Continue Flomax -Continue chronic Soto--> patient has been leaking around current Soto we will change especially with UTI -Recommend outpatient follow-up with urology History of stroke/bilateral carotid stenosis/HTN/HPL -Restart statin -Hold diuresis -Restart Coreg -Continue to hold lisinopril 20 mg daily and reevaluate ability to restart tomorrow -Continue to hold amlodipine 10 mg daily and reevaluate ability to restart tomorrow Severe peripheral vascular disease -Aspirin/Plavix are on hold secondary to recurrent GI bleeding -Continue outpatient vascular follow-up -right TAMIE at 0.43 and left TAMIE at 0.33 BPH -Continue home Flomax Anxiety/depression -Continue sertraline History of alcohol abuse -Patient quit drinking following his stroke -Encourage continued sobriety Tobacco abuse -Encouraged cessation -Nicotine replacement available if desired DVT prophylaxis -SCDs -Chemoprophylaxis deferred due to recent GI bleeding CODE STATUS -Full code -We need to further discuss this patient's current goals do not seem consistent with that of being full code Disposition: -Hospice met with patient and family today. Plan is to discharge back to the skilled facility and try with some rehab to use up the rest of his 100 days and if he does not progress during that time. Transition to hospice. Anticipate discharge sometime mid next week Charges/Coding Visit Charges Inpatient E&M: 69291 Subs Hosp L2
[2022-12-19 15:02] VITALS: BP 127/82; PULSE 86; RESP 16; TEMP 36.7; O2SAT 97
--- NOTE | 2022-12-19 15:09 | NURSING ---
spoke with Catrachita sample tailor over the phone. Catrachita instructed this RN to order Jevity 1.5 at 60ml continuous with 125cc water flushes q6h. Catrachita states she will have a sample tailor follow up with pt tomorrow 12/20
[2022-12-19] MEDS: Jevity 1.5 1,000 ML 60 ML GT (16:07)
[2022-12-19 21:20] LABS: Vancomycin, Trough Level 12.8 ug/mL (5.0-15.0)
[2022-12-19 21:43] VITALS: BP 131/60; PULSE 85; RESP 18; TEMP 36.6; O2SAT 97
[2022-12-19] MEDS: 0.9% Saline Lock 10 ML Syringe IV (21:47)
--- NOTE | 2022-12-19 21:51 | PCM.RX.CS ---
Consult Pharmacy has been consulted to manage selected antiobiotic: Vancomycin Type of Consult: Follow-up Suspected Infection: Skin/Soft tissue Prior Doses of Antibiotics Received/Current Regimen: Medications Vancomycin HCl (Vancomycin) 1,000 mg in 200 mls @ 200 mls/hr IV Q12H RUPAL Discontinued Medications Vancomycin HCl 750 mg/ Sodium (Chloride) 265 mls @ 250 mls/hr IV Q12H RUPAL Last Admin: 12/19/22 10:22 Dose: Infused Labs: Sodium 137 mmol/L (136-145) 12/19/22 05:38 Potassium 3.7 mmol/L (3.5-5.1) 12/19/22 05:38 Chloride 107 mmol/L (98-107) 12/19/22 05:38 Carbon Dioxide 24.0 mmol/L (21.0-32.0) 12/19/22 05:38 Anion Gap 6 (5-15) 12/19/22 05:38 BUN 13 mg/dL (7-18) 12/19/22 05:38 Creatinine 0.31 mg/dL (0.70-1.30) L 12/19/22 05:38 Est GFR (MDRD) Af Amer 363 mL/min (>60) 12/19/22 05:38 Est GFR (MDRD) Non-Af 300 mL/min (>60) 12/19/22 05:38 BUN/Creatinine Ratio 41.9 RATIO (10-20) H 12/19/22 05:38 Glucose 67 mg/dL (74-106) L 12/19/22 05:38 Vancomycin Trough 12.8 ug/mL (5.0-15.0) 12/19/22 20:35 Microbiology: Microbiology 12/17/22 13:25 Blood Culture (Wb) - Left Forearm Blood Culture - Preliminary No growth in 48 hours. 12/17/22 13:30 Blood Culture (Wb) - Left Hand Blood Culture - Preliminary No growth in 48 hours. 12/17/22 14:15 Urine Catheter - Soto Urine Culture - Final Enterobacter cloacae complex 12/17/22 13:13 Wound - Leg, Right Gram Stain - Final 12/17/22 13:13 Wound - Leg, Right Wound Culture - Final Streptococcus group A Weight used for dosin.3 kg Estimated Creatinine Clearance: 107 Goal Trough: 15-20 mcg/mL Pharmacy Plan for Drug Dosing: Vancomycin trough level, drawn 11.5hrs post-dose was 12.8. This was below the target range of 15-20. The 750mg has been stopped, and a new dose of 1000mg q12h will be started. Another trough will be taken prior to the fourth dose of the new regimen. Pharmacy Service will continue to monitor and adjust dosing as required. Follow-Up Labs: Trough Vancomycin Labs to be done on [date and time ordered]: 12/21/22 @5758
[2022-12-19] MEDS: Ferrous Sulfate 300 MG/5 ML UDC 408 MG GT (21:53)
[2022-12-19] MEDS: Ascorbic Acid 500 MG Tablet GT (21:53)
[2022-12-19] MEDS: Atorvastatin Calcium 40 MG Tablet GT (21:53)
[2022-12-19] MEDS: Tamsulosin HCl 0.4 MG Capsule PO (21:53)
[2022-12-19] MEDS: Carvedilol 3.125 MG TABLET GT (22:01)
[2022-12-19] MEDS: Mirtazapine 15 MG Tablet GT (22:03)
[2022-12-19] MEDS: Vancomycin IV 1,000 MG/200 ML BAG 200 MG IV (22:11)
[2022-12-20 03:51] VITALS: BP 142/53; PULSE 79; RESP 16; TEMP 36.5; O2SAT 96
[2022-12-20] MEDS: Acetaminophen 650 MG/20 ML UDC 1000 MG GT ×3 (05:50→21:17)
[2022-12-20] MEDS: 0.9% Saline Lock 10 ML Syringe IV ×3 (05:50→22:06)
[2022-12-20] MEDS: Ascorbic Acid 500 MG Tablet GT ×3 (05:50→21:17)
[2022-12-20] MEDS: Menthol/Lanolin/Calamine/Znox 113 GM Tube 1 APPLIC TOPICAL ×3 (05:51→21:26)
[2022-12-20 07:55] LABS: Absolute Lymphocyte Count 0.98 X10^3/uL (0.83-4.51); Absolute Neutrophil Count 9.4 X10^3/uL (2.0-7.7); Basophil# 0.06 X10^3/uL; Basophil% 0.5 % (0-1); Eosinophil# 0.41 X10^3/uL; Eosinophils% 3.5 % (0-5); Hematocrit 29.5 % (40-54); Hemoglobin 9.2 g/dL (13.0-16.5); Lymphocyte # 0.98 X10^3/ul (0.83-4.51); Lymphocyte % 8.3 % (19-41); Mean Corp Hgb Conc 31.2 g/dL (32-36); Mean Corpuscular Volume 86.5 fL (80-94); Mean Platelet Vol. 9.5 fl (6.2-12.0); Monocyte# 0.84 X10^3/uL; Monocyte% 7.1 % (0-10); NRBC Flagged by Analyzer 0 % (0-5); Neutrophil # 9.44 X10^3/uL (2.7-7.7); Neutrophil % 79.4 % (47-70); POSITIVE COUNT YES; RBC Distribution Width CV 16.9 % (11.6-14.6); RBC Distribution Width SD 53.1 fl (35.1-43.9); Red Blood Count 3.41 M/mm3 (4.6-6.2); White Blood Count 11.9 K/mm3 (4.4-11.0)
[2022-12-20] MEDS: Ferrous Sulfate 300 MG/5 ML UDC 408 MG GT ×2 (07:55→21:16)
[2022-12-20] MEDS: MAGNESIUM OXIDE 400 MG TABLET GT (07:56)
[2022-12-20] MEDS: Multivitamins,Ther W-Minerals Tablet 1 TABLET GT (07:56)
[2022-12-20] MEDS: Cholecalciferol (VIT D3) 25 MCG TABLET (1,000 UNITS) 50 MCG GT (07:56)
[2022-12-20] MEDS: Sertraline 100 MG Tablet GT (07:56)
[2022-12-20 08:03] LABS: Differential Indicated SCAN CRITERIA MET; Platelet Count 821 K/mm3 (150-450)
[2022-12-20] MEDS: Jevity 1.5 1,000 ML 60 ML GT (08:03)
[2022-12-20 08:15] LABS: Anion Gap 7 (5-15); BUN 11 mg/dL (7-18); BUN/Creat Ratio 26.8 RATIO (10-20); Calcium,Total 8.5 mg/dL (8.5-10.1); Chloride 105 mmol/L (98-107); Creatinine, Serum 0.41 mg/dL (0.70-1.30); EST Glomerular Filtration Rate 217 mL/min (>60); Est Glom Filt Rate - Afr Amer 263 mL/min (>60); Estimated Creatinine Clearance 64.44 ml/min; Glucose 195 mg/dL (74-106); Potassium 3.3 mmol/L (3.5-5.1); Sodium Level 136 mmol/L (136-145)
[2022-12-20 09:10] VITALS: BP 142/57; PULSE 79; RESP 12; TEMP 36.6; O2SAT 100
[2022-12-20] MEDS: Vancomycin IV 1,000 MG/200 ML BAG 200 MG IV ×2 (09:27→21:20)
[2022-12-20 09:33] LABS: Differential Comment SCANNED; Platelet Estimate MKD INC (ADEQ)
--- NOTE | 2022-12-20 11:51 | PN_ITS ---
Subjective Subjective Patient was seen this morning for follow up. He is resting in bed awake and watching TV. His sister is present visiting patient. WBC trending down. No f/c/n/v. Objective Data Objective Data Vital Signs: Vital Signs Temp Pulse Resp BP Pulse Ox O2 Del Method O2 Flow Rate 97.8 F 79 12 142/57 H 100 Nasal Cannula 2 12/20/22 09:10 12/20/22 09:10 12/20/22 09:10 12/20/22 09:10 12/20/22 09:10 12/20/22 09:10 12/20/22 09:10 FiO2 3 12/17/22 21:52 Oxygen Flow Rate (L/min) 2 Oxygen Delivery Method Nasal Cannula Weight: 70.3 kg Body Mass Index (BMI) 21.6 Intake & Output: Intake and Output for Last 24 Hours 12/18/22 12/19/22 12/20/22 23:59 23:59 23:59 Intake Total 3423.67 / 3423.67 2095.42 / 2095.42 1448.33 / 1448.33 Output Total 1500 / 1500 4200 / 4200 1850 / 1850 Balance 1923.67 / 1923.67 -2104.58 / -2104.58 -401.67 / -401.67 Medical Nutrition Assessment Dietitian: Malnutrition Criteria Met Start: 12/20/22 08:11 Freq: Status: Active Protocol: Document 12/20/22 08:11 GEORGE (Rec: 12/20/22 08:12 [facility] [id number]) Nutrition Malnutrition Evidence of Malnutrition Exists Yes Malnutrition (severe): Chronic Evidenced By Suboptimal Energy Intake ( Severe),Weight Loss (Severe), Physical Changes (Moderate) Intake Problem Inadequate Oral Intake Status Inactive Problem Increased Nutrient Needs (specify) Etiology protein related to skin status Signs/Symptoms as evidenced by wound nurse following re: multiple wounds/ ulcers to BLE Status Active Problem Clinical Problem Chronic Disease or Condition Related Malnutrition Etiology related to dysphagia and inadequate energy intake Signs/Symptoms as evidenced by need for PEG for nutrition - foods for pleasure only, 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 Will order via PE oz Alfonso bid to help w/ wound healing if consumed. Lab / Micro Data Result Diagrams: 12/20/22 07:45 12/20/22 07:45 Labs: Laboratory Results - last 24 hr 12/19/22 20:35: Vancomycin Trough 12.8 12/20/22 07:45: WBC 11.9 H, RBC 3.41 L, Hgb 9.2 L, Hct 29.5 L, MCV 86.5, MCH 27.0, MCHC 31.2 L, RDW Std Deviation 53.1 H, RDW Coeff of Luis 16.9 H, Plt Count 821 H*, MPV 9.5, Immature Gran % (Auto) 1.200 H, Neut % (Auto) 79.4 H, Lymph % (Auto) 8.3 L, [place] % (Auto) 7.1, Eos % (Auto) 3.5, Baso % (Auto) 0.5, Absolute Neuts (auto) 9.4 H, Absolute Lymphs (auto) 0.98, Nucleated RBC % 0, Differential Comment SCANNED, Diff Path Review October foll, Platelet Estimate [employer] 12/20/22 07:45: Sodium 136, Potassium 3.3 L, Chloride 105, Carbon Dioxide 24.0, Anion Gap 7, BUN 11, Creatinine 0.41 L, Estim Creat Clear Calc 64.44, Est GFR (MDRD) Af Amer 263, Est GFR (MDRD) Non-Af 217, BUN/Creatinine Ratio 26.8 H, Glucose 195 H, Calcium 8.5 Micro: Microbiology 12/17/22 13:25 Blood Culture (Wb) - Left Forearm Blood Culture - Preliminary No growth in 48 hours. 12/17/22 13:30 Blood Culture (Wb) - Left Hand Blood Culture - Preliminary No growth in 48 hours. 12/17/22 14:15 Urine Catheter - Soto Urine Culture - Final Enterobacter cloacae complex 12/17/22 13:13 Wound - Leg, Right Gram Stain - Final 12/17/22 13:13 Wound - Leg, Right Wound Culture - Final Streptococcus group A Physical Exam Narrative Bilateral foot/ankle gauze dressings are clean, dry and intact - nursing changed earlier today. Const alert and no apparent distress Assessment & Plan Assessment/Plan (1) Atherosclerosis of [place] arteries of extremities with gangrene, bilateral legs: (2) Peripheral arterial disease: (3) Foot osteomyelitis: PLAN: Plan Reviewed diagnostic data. WBC trending down. Foot/ankle changes are c/w his know PAD. Reviewed imaging- on MRI findings c/w calcaneal and fibular osteomyelitis. Also on xray c/w osteomyelitis to 5th met head on left foot. WBC trending down today. Patient looks overall better today. A culture has been obtained of the right ankle wounds. Result pending, but +for MRSA, strep A and Klebsiella. Patient is on IV Vancomycin and Zosyn. ID is on consult and following. Wound care: betadine and gauze dressing changes daily. Keep ulcers and heels offloaded at all times. No immediate plans for podiatric surgery as wounds are chronic, will proceed with above plan but will reconsider if acute worsening.
--- NOTE | 2022-12-20 13:18 | PN.HOSP_ITS ---
Reason for Visit Reason for Visit: Abnormal labs/bilateral foot wound infections Subjective Subjective No issues overnight. Patient is having some diarrhea which we suspect is related to his tube feed utilization however C. difficile has been sent. Patient has no complaints at this time. Asks when he will be able to walk again. I did discuss with him that I do not know if he will ever be able to walk again. He is at risk of losing his legs however with ongoing bleeding in his esophagus and GI tract it is doubtful that any vascular surgical interventi on can be pursued at this time. Objective Data Objective Data Vital Signs: Vital Signs Temp Pulse Resp BP Pulse Ox O2 Del Method O2 Flow Rate 97.8 F 79 12 142/57 H 100 Nasal Cannula 2 12/20/22 09:10 12/20/22 09:10 12/20/22 09:10 12/20/22 09:10 12/20/22 09:10 12/20/22 09:10 12/20/22 09:10 FiO2 3 12/17/22 21:52 Oxygen Flow Rate (L/min) 2 Oxygen Delivery Method Nasal Cannula Weight: 70.3 kg Body Mass Index (BMI) 21.6 Intake & Output: Intake and Output for Last 24 Hours 12/18/22 12/19/22 12/20/22 23:59 23:59 23:59 Intake Total 3423.67 / 3423.67 2095.42 / 2095.42 1448.33 / 1448.33 Output Total 1500 / 1500 4200 / 4200 1850 / 1850 Balance 1923.67 / 1923.67 -2104.58 / -2104.58 -401.67 / -401.67 Medical Nutrition Assessment Dietitian: Malnutrition Criteria Met Start: 12/20/22 08:11 Freq: Status: Active Protocol: Document 12/20/22 08:11 GEORGE (Rec: 12/20/22 08:12 GEORGE [id number]) Nutrition Malnutrition Evidence of Malnutrition Exists Yes Malnutrition (severe): Chronic Evidenced By Suboptimal Energy Intake ( Severe),Weight Loss (Severe), Physical Changes (Moderate) Intake Problem Inadequate Oral Intake Status Inactive Problem Increased Nutrient Needs (specify) Etiology protein related to skin status Signs/Symptoms as evidenced by wound nurse following re: multiple wounds/ ulcers to BLE Status Active Problem Clinical Problem Chronic Disease or Condition Related Malnutrition Etiology related to dysphagia and inadequate energy intake Signs/Symptoms as evidenced by need for PEG for nutrition - foods for pleasure only, 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 Will order via PE oz Alfonso bid to help w/ wound healing if consumed. Lab / Micro Data Result Diagrams: 12/20/22 07:45 12/20/22 07:45 Labs: Laboratory Results - last 24 hr 12/19/22 20:35: Vancomycin Trough 12.8 12/20/22 07:45: WBC 11.9 H, RBC 3.41 L, Hgb 9.2 L, Hct 29.5 L, MCV 86.5, MCH 27.0, MCHC 31.2 L, RDW Std Deviation 53.1 H, RDW Coeff of Luis 16.9 H, Plt Count 821 H*, MPV 9.5, Immature Gran % (Auto) 1.200 H, Neut % (Auto) 79.4 H, Lymph % (Auto) 8.3 L, [place] % (Auto) 7.1, Eos % (Auto) 3.5, Baso % (Auto) 0.5, Absolute Neuts (auto) 9.4 H, Absolute Lymphs (auto) 0.98, Nucleated RBC % 0, Differential Comment SCANNED, Diff Path Review October rubina, Platelet Estimate MKD INC 12/20/22 07:45: Sodium 136, Potassium 3.3 L, Chloride 105, Carbon Dioxide 24.0, Anion Gap 7, BUN 11, Creatinine 0.41 L, Estim Creat Clear Calc 64.44, Est GFR (MDRD) Af Amer 263, Est GFR (MDRD) Non-Af 217, BUN/Creatinine Ratio 26.8 H, Glucose 195 H, Calcium 8.5 Micro: Microbiology 12/17/22 13:25 Blood Culture (Wb) - Left Forearm Blood Culture - Preliminary No growth in 48 hours. 12/17/22 13:30 Blood Culture (Wb) - Left Hand Blood Culture - Preliminary No growth in 48 hours. 12/17/22 14:15 Urine Catheter - Soto Urine Culture - Final Enterobacter cloacae complex 12/17/22 13:13 Wound - Leg, Right Gram Stain - Final 12/17/22 13:13 Wound - Leg, Right Wound Culture - Final Streptococcus group A Physical Exam Const alert, oriented x3 and no apparent distress; Negative for healthy appearing or well nourished Constitutional Narrative: Elderly, white male, lying in bed sleeping, awakens easily, appears comfortable and nontoxic, appropriate upon awakening, appears chronically ill HEENT head/scalp atraumatic and moist oral mucous membranes HEENT Narrative: Dentition is poor, Mallampati is 2, no thrush, temporal wasting present Resp normal respiratory effort, no retractions, no use of accessory muscles and clear to auscultation bilaterally Resp Narrative: Diffusely diminished but clear Auscultation: Negative for rales, rhonchi or wheezes Cardio regular rate, regular rhythm, S1 normal heart sound, S2 normal heart sound, no murmurs, no rub, no gallops and no clicks GI normal to inspection, nondistended, normoactive bowel sounds, soft to palpation and non-tender GI Narrative: PEG site clean and dry intact Extremity no clubbing, cyanosis or edema Extremity Narrative: Decreased lean muscle mass, bilateral lower extremity wounds wrapped in clean dry dressings Neuro oriented x3 and moves all extremities Neuro Narrative: Marked generalized weakness but no focal deficits and able to move all extremities Speech: speech normal Psych Psych Narrative: Affect is flat but eye contact is good, mood is depressed however appropriate for current situation Assessment & Plan Assessment/Plan (1) Foot osteomyelitis: (2) Cellulitis of leg, right: (3) Leukocytosis: (4) Acute hypotension: (5) Acute on chronic anemia: (6) UTI (urinary tract infection): (7) Severe malnutrition: (8) Dysphagia: (9) Thrombocytosis: PLAN: Plan Bilateral foot osteomyelitis -No sepsis present on presentation -Podiatry is following and feels that these are stable overall -No immediate surgical plans unless gas or more severe infection develops -Vascular surgery has evaluated as well and indicated they would consider further surgical intervention and vascular surgery if he had no bleeding but bleeding was present on his EGD and therefore I suspect vascular intervention will be precluded -Lower extremity MRI demonstrates calcaneal and fibular osteomyelitis -White count continues to trend down -Continue broad-spectrum antibiotics with vancomycin and Zosyn -Wound cultures polymicrobial showing group A strep, Staph aureus, and Klebsiella -Blood cultures with no growth at 48 hours -Infectious diseases following Enterobacter cloacae UTI -Urine culture shows resistance only to cefazolin for his Enterobacter -Continue vancomycin and Zosyn at this time -ID following and appreciate input Acute hypoxia -Patient on room air at baseline -Currently requiring 2 L nasal cannula--> sats are 100% -Wean oxygen as able -No significant concerns for pulmonary infection -may need discharged on oxygen therapy Dysphagia -Speech therapy is following -Patient on modified diet and p.o. intake is extremely poor per discussion with his brother -Continue tube feeds via PEG after EGD Diarrhea -Suspect related to tube feed -We will check C. difficile and if negative start Metamucil to help thicken s tool and prevent rectal irritation Acute on chronic anemia -Suspect recurrent bleeding from his previously diagnosed duodenal ulcer -Patient transfused 1 unit on admission -Baseline hemoglobin 8-9 and hemoglobin on admission was between 6.5 and 7.1 -Hemoglobin is now stable at 9.2 -Discontinue Protonix drip and transition to 3 times daily lansoprazole via PEG -Hold DVT prophylaxis again for today and if remains stable will reinitiate DVT prophylaxis again tomorrow -Continue home supplemental iron -GI following-appreciate input Thrombocytosis -Suspect reactive and related to anemia -Slightly trending up -Continue to monitor -It is chronically elevated likely related to his chronic lower extremity infections and anemia due to blood loss Recent GI bleed secondary to duodenal ulcer/esophageal ulcers/severe esophagitis -Hemoglobin is currently stable and trending up with current hemoglobin at 9.2. -EGD performed and showed duodenal ulcer that required clipping?while at [facility] in August -Patient with multiple EGDs here with most recent being on 11/06/2022 that demonstrated esophageal stenosis which was dilated, severe erosive esophagitis which was injected and treated with heater probe, a medium size hiatal hernia, multiple nonbleeding duodenal ulcers with no stigmata of bleeding and a PEG was placed at that time to assist with nutrition -Discontinue Protonix drip and transition to lansoprazole via PEG 3 times daily 30 mg -GI following-appreciate input -Per GI if patient requires readmission again will need esophageal stenting Severe malnutrition -Continue tube feed via PEG -P.o. intake remains poor and brother reports he is really only eating ice c skyler and puddings -Restart tube feeds today along with free water -Dietitian following Pressure ulcer-unstageable -Cultures are pending -Antibiotics per infectious disease -Has had previous debridement in the OR by plastic surgery -Wound at this time is overall clean appearing without any signs of recurrent issues however nonhealing well likely related to his nutritional status and baseline chronic medical issues -Continue wound care -Appreciate plastic surgery involvement Acute on chronic urinary retention -Patient with Soto catheter from facility -Was placed at [facility] for severe urinary retention -Continue Flomax -Continue chronic Soto--> patient has been leaking around current Soto we will change especially with UTI -Recommend outpatient follow-up with urology History of stroke/bilateral carotid stenosis/HTN/HPL -Restart statin -Hold diuresis -Restart Coreg -Continue to hold lisinopril 20 mg daily and reevaluate ability to restart tomorrow -Continue to hold amlodipine 10 mg daily and reevaluate ability to restart tomorrow Severe peripheral vascular disease -Aspirin/Plavix are on hold secondary to recurrent GI bleeding -Continue outpatient vascular follow-up -right TAMIE at 0.43 and left TAMIE at 0.33 BPH -Continue home Flomax Anxiety/depression -Continue sertraline History of alcohol abuse -Patient quit drinking following his stroke -Encourage continued sobriety Tobacco abuse -Encouraged cessation -Nicotine replacement available if desired DVT prophylaxis -SCDs -Chemoprophylaxis deferred due to recent GI bleeding CODE STATUS -Full code -We need to further discuss this patient's current goals do not seem consistent with that of being full code Disposition: -Hospice met with patient and family today. Plan is to discharge back to the skilled facility and try with some rehab to use up the rest of his 100 days and if he does not progress during that time. Transition to hospice. Anticipate discharge sometime mid next week
[2022-12-20] MEDS: Juven (unflavored) Packet 1 PACKET PO (15:06)
[2022-12-20] MEDS: Lansoprazole 15 MG Capsule.DR 30 MG GT ×2 (15:07→21:16)
[2022-12-20 15:13] VITALS: BP 146/63; PULSE 89; RESP 12; TEMP 36.6; O2SAT 99
[2022-12-20 21:15] VITALS: BP 130/70; PULSE 91; RESP 16; TEMP 36.5; O2SAT 98
[2022-12-20] MEDS: Atorvastatin Calcium 40 MG Tablet GT (21:17)
[2022-12-20] MEDS: Tamsulosin HCl 0.4 MG Capsule PO (21:17)
[2022-12-20] MEDS: Carvedilol 3.125 MG TABLET GT (21:18)
[2022-12-20] MEDS: Vancomycin 125 MG/5 ML Susp PO.SYRINGE PO (21:26)
[2022-12-21] MEDS: Vancomycin 125 MG/5 ML Susp PO.SYRINGE GT ×3 (01:09→13:14)
[2022-12-21] MEDS: Jevity 1.5 1,000 ML 60 ML GT (03:14)
[2022-12-21 03:25] VITALS: BP 136/60; PULSE 82; RESP 16; TEMP 36.4; O2SAT 96
[2022-12-21 05:22] LABS: Absolute Lymphocyte Count 1.14 X10^3/uL (0.83-4.51); Basophil% 0.9 % (0-1); Eosinophil# 0.49 X10^3/uL; Eosinophils% 4.6 % (0-5); Hemoglobin 9.5 g/dL (13.0-16.5); Lymphocyte # 1.14 X10^3/ul (0.83-4.51); Lymphocyte % 10.7 % (19-41); Mean Corp Hgb Conc 28.8 g/dL (32-36); Mean Corpuscular Hgb 27.3 pg (27.0-32.0); Mean Corpuscular Volume 94.8 fL (80-94); Mean Platelet Vol. 9.5 fl (6.2-12.0); Monocyte% 7.5 % (0-10); NRBC Flagged by Analyzer 0 % (0-5); Neutrophil # 7.99 X10^3/uL (2.7-7.7); Neutrophil % 75.1 % (47-70); Platelet Count 705 K/mm3 (150-450); RBC Distribution Width CV 17.4 % (11.6-14.6); RBC Distribution Width SD 59.8 fl (35.1-43.9); Red Blood Count 3.48 M/mm3 (4.6-6.2); White Blood Count 10.7 K/mm3 (4.4-11.0)
[2022-12-21] MEDS: Lansoprazole 15 MG Capsule.DR 30 MG GT ×2 (05:42→15:12)
[2022-12-21] MEDS: Menthol/Lanolin/Calamine/Znox 113 GM Tube 1 APPLIC TOPICAL ×2 (05:42→15:12)
[2022-12-21] MEDS: Ascorbic Acid 500 MG Tablet GT ×2 (05:44→15:14)
[2022-12-21] MEDS: Acetaminophen 650 MG/20 ML UDC 1000 MG GT ×2 (05:45→15:17)
[2022-12-21 05:56] LABS: Anion Gap 6 (5-15); BUN 9 mg/dL (7-18); Calcium,Total 8.4 mg/dL (8.5-10.1); Chloride 105 mmol/L (98-107); Creatinine, Serum 0.36 mg/dL (0.70-1.30); EST Glomerular Filtration Rate 252 mL/min (>60); Est Glom Filt Rate - Afr Amer 305 mL/min (>60); Estimated Creatinine Clearance 64.44 ml/min; Glucose 144 mg/dL (74-106); Potassium 3.7 mmol/L (3.5-5.1); Sodium Level 135 mmol/L (136-145)
--- NOTE | 2022-12-21 07:31 | PCM.PROGNOTE ---
Subjective Subjective Patient was seen this morning for follow up on foot/ankle bilateral. He is resting/sleeping in bed, no complaints. No fever. WBC normal. Objective Data Objective Data Vital Signs: Vital Signs Temp Pulse Resp BP Pulse Ox O2 Del Method O2 Flow Rate 97.6 F L 82 16 136/60 H 96 Nasal Cannula 2 12/21/22 03:25 12/21/22 03:25 12/21/22 03:25 12/21/22 03:25 12/21/22 03:25 12/21/22 03:25 12/21/22 03:25 FiO2 3 12/17/22 21:52 Oxygen Flow Rate (L/min) 2 Oxygen Delivery Method Nasal Cannula Weight: 70.3 kg Body Mass Index (BMI) 21.6 Intake & Output: Intake and Output for Last 24 Hours 12/19/22 12/20/22 12/21/22 23:59 23:59 23:59 Intake Total 2095.42 / 2095.42 1912.83 / 1912.83 1110 / 1110 Output Total 4200 / 4200 5100 / 5100 1950 / 1950 Balance -2104.58 / -2104.58 -3187.17 / -3187.17 -840 / -840 Medical Nutrition Assessment Dietitian: Malnutrition Criteria Met Start: 12/20/22 08:11 Freq: Status: Active Protocol: Document 12/20/22 08:11 GEORGE (Rec: 12/20/22 08:12 [facility] [id number]) Nutrition Malnutrition Evidence of Malnutrition Exists Yes Malnutrition (severe): Chronic Evidenced By Suboptimal Energy Intake ( Severe),Weight Loss (Severe), Physical Changes (Moderate) Intake Problem Inadequate Oral Intake Status Inactive Problem Increased Nutrient Needs (specify) Etiology protein related to skin status Signs/Symptoms as evidenced by wound nurse following re: multiple wounds/ ulcers to BLE Status Active Problem Clinical Problem Chronic Disease or Condition Related Malnutrition Etiology related to dysphagia and inadequate energy intake Signs/Symptoms as evidenced by need for PEG for nutrition - foods for pleasure only, 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 Will order via PE oz Alfonso bid to help w/ wound healing if consumed. Lab / Micro Data Result Diagrams: 12/21/22 05:06 12/21/22 05:06 Labs: Laboratory Results - last 24 hr 12/20/22 07:45: WBC 11.9 H, RBC 3.41 L, Hgb 9.2 L, Hct 29.5 L, MCV 86.5, MCH 27.0, MCHC 31.2 L, RDW Std Deviation 53.1 H, RDW Coeff of Luis 16.9 H, Plt Count 821 H*, MPV 9.5, Immature Gran % (Auto) 1.200 H, Neut % (Auto) 79.4 H, Lymph % (Auto) 8.3 L, [place] % (Auto) 7.1, Eos % (Auto) 3.5, Baso % (Auto) 0.5, Absolute Neuts (auto) 9.4 H, Absolute Lymphs (auto) 0.98, Nucleated RBC % 0, Differential Comment SCANNED, Diff Path Review Terri cespedes, Platelet Estimate [employer]D INC 12/20/22 07:45: Sodium 136, Potassium 3.3 L, Chloride 105, Carbon Dioxide 24.0, Anion Gap 7, BUN 11, Creatinine 0.41 L, Estim Creat Clear Calc 64.44, Est GFR (MDRD) Af Amer 263, Est GFR (MDRD) Non-Af 217, BUN/Creatinine Ratio 26.8 H, Glucose 195 H, Calcium 8.5 12/21/22 05:06: WBC 10.7, RBC 3.48 L, Hgb 9.5 L, Hct 33.0 L, MCV 94.8 H D, MCH 27.3, MCHC 28.8 L D, RDW Std Deviation 59.8 H, RDW Coeff of Luis 17.4 H, Plt Count 705 H, MPV 9.5, Immature Gran % (Auto) 1.200 H, Neut % (Auto) 75.1 H, Lymph % (Auto) 10.7 L, [place] % (Auto) 7.5, Eos % (Auto) 4.6, Baso % (Auto) 0.9, Absolute Neuts (auto) 8.0 H, Absolute Lymphs (auto) 1.14, Nucleated RBC % 0 12/21/22 05:06: Sodium 135 L, Potassium 3.7, Chloride 105, Carbon Dioxide 24.0, Anion Gap 6, BUN 9, Creatinine 0.36 L, Estim Creat Clear Calc 64.44, Est GFR (MDRD) Af Amer 305, Est GFR (MDRD) Non-Af 252, BUN/Creatinine Ratio 25.0 H, Glucose 144 H, Calcium 8.4 L Micro: Microbiology 12/20/22 13:45 Stool C. difficile GDH Antigen & Toxins - Final 12/20/22 13:45 Stool C. difficile DNA Amplification - Final 12/17/22 13:25 Blood Culture (Wb) - Left Forearm Blood Culture - Preliminary No growth in 48 hours. 12/17/22 13:30 Blood Culture (Wb) - Left Hand Blood Culture - Preliminary No growth in 48 hours. 12/17/22 14:15 Urine Catheter - Soto Urine Culture - Final Enterobacter cloacae complex 12/17/22 13:13 Wound - Leg, Right Gram Stain - Final 12/17/22 13:13 Wound - Leg, Right Wound Culture - Final Streptococcus group A Physical Exam Narrative Multiple areas of dry gangrene to the left foot - to the anterior ankle, posterior heel and to the toes of the forefoot - dry and stable, no evidence of acute ischemia. Right foot with dry gangrene to the dorsal foot, there is also draining fibrotic ulceration to the lateral ankle with visible peroneal tendons and to the posterior heel down to deep tissue - improved today, less drainage, there is erythema to the lateral foot and ankle - which is much improved, no evidence of acute ischemia. No visible abscess, no maloder, no crepitus, no fluctuance bilateral foot or ankle. Const alert and no apparent distress Assessment & Plan Assessment/Plan (1) Atherosclerosis of [place] arteries of extremities with gangrene, bilateral legs: (2) Peripheral arterial disease: (3) Foot osteomyelitis: PLAN: Plan Evaluation performed. Reviewed diagnostic data. WBC now normal. Foot/ankle changes are c/w his know PAD. Reviewed imaging- on MRI findings c/w calcaneal and fibular osteomyelitis. Also on xray c/w osteomyelitis to 5th met head on left foot. Cellulitis much improved today. A culture has been obtained of the right ankle wounds, +for MRSA, strep A and Klebsiella. Patient is on IV Vancomycin and Zosyn. ID is on consult and following. Wound care: betadine and gauze dressing changes daily. Keep ulcers and heels offloaded at all times. No immediate plans for podiatric surgery as wounds are chronic, will proceed with above plan but will reconsider if acute worsening.
[2022-12-21 07:42] VITALS: O2SAT 95
--- NOTE | 2022-12-21 09:15 | CASEMGMT ---
Discharge Planning Updates sent to [facility] via [facility]. Nina Ramon, Discharge Planning Asst.
[2022-12-21 09:25] VITALS: BP 157/62; PULSE 83; RESP 17; TEMP 36.5; O2SAT 99
[2022-12-21] MEDS: Sertraline 100 MG Tablet GT (09:41)
[2022-12-21] MEDS: Cholecalciferol (VIT D3) 25 MCG TABLET (1,000 UNITS) 50 MCG GT (09:41)
[2022-12-21] MEDS: Carvedilol 3.125 MG TABLET GT (09:41)
[2022-12-21] MEDS: Multivitamins,Ther W-Minerals Tablet 1 TABLET GT (09:42)
[2022-12-21] MEDS: MAGNESIUM OXIDE 400 MG TABLET GT (09:44)
[2022-12-21] MEDS: Juven (unflavored) Packet 1 PACKET PO ×2 (09:45→17:24)
[2022-12-21] MEDS: Ferrous Sulfate 300 MG/5 ML UDC 408 MG GT (09:45)
--- NOTE | 2022-12-21 10:04 | PCM.PN.HOSP ---
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 Objective Data Objective Data Vital Signs: Vital Signs Temp Pulse Resp BP Pulse Ox O2 Del Method O2 Flow Rate 36.5 C L 83 17 157/62 H 99 Nasal Cannula 2 12/21/22 09:25 12/21/22 09:25 12/21/22 09:25 12/21/22 09:25 12/21/22 09:25 12/21/22 09:25 12/21/22 09:25 FiO2 3 12/17/22 21:52 Oxygen Flow Rate (L/min) 2 Oxygen Delivery Method Nasal Cannula Weight: 70.3 kg Body Mass Index (BMI) 21.6 Intake & Output: Intake and Output for Last 24 Hours 12/19/22 12/20/22 12/21/22 23:59 23:59 23:59 Intake Total 2095.42 / 2095.42 1912.83 / 1912.83 1160 / 1160 Output Total 4200 / 4200 5100 / 5100 1950 / 1950 Balance -2104.58 / -2104.58 -3187.17 / -3187.17 -790 / -790 Medical Nutrition Assessment Dietitian: Malnutrition Criteria Met Start: 12/20/22 08:11 Freq: Status: Active Protocol: Document 12/20/22 08:11 GEORGE (Rec: 12/20/22 08:12 GEORGE [id number]) Nutrition Malnutrition Evidence of Malnutrition Exists Yes Malnutrition (severe): Chronic Evidenced By Suboptimal Energy Intake ( Severe),Weight Loss (Severe), Physical Changes (Moderate) Intake Problem Inadequate Oral Intake Status Inactive Problem Increased Nutrient Needs (specify) Etiology protein related to skin status Signs/Symptoms as evidenced by wound nurse following re: multiple wounds/ ulcers to BLE Status Active Problem Clinical Problem Chronic Disease or Condition Related Malnutrition Etiology related to dysphagia and inadequate energy intake Signs/Symptoms as evidenced by need for PEG for nutrition - foods for pleasure only, 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 Will order via PE oz Alfonso bid to help w/ wound healing if consumed. Lab / Micro Data Result Diagrams: 12/21/22 05:06 12/21/22 05:06 Labs: Laboratory Results - last 24 hr 12/21/22 05:06: WBC 10.7, RBC 3.48 L, Hgb 9.5 L, Hct 33.0 L, MCV 94.8 H D, MCH 27.3, MCHC 28.8 L D, RDW Std Deviation 59.8 H, RDW Coeff of Luis 17.4 H, Plt Count 705 H, MPV 9.5, Immature Gran % (Auto) 1.200 H, Neut % (Auto) 75.1 H, Lymph % (Auto) 10.7 L, [place] % (Auto) 7.5, Eos % (Auto) 4.6, Baso % (Auto) 0.9, Absolute Neuts (auto) 8.0 H, Absolute Lymphs (auto) 1.14, Nucleated RBC % 0 12/21/22 05:06: Sodium 135 L, Potassium 3.7, Chloride 105, Carbon Dioxide 24.0, Anion Gap 6, BUN 9, Creatinine 0.36 L, Estim Creat Clear Calc 64.44, Est GFR (MDRD) Af Amer 305, Est GFR (MDRD) Non-Af 252, BUN/Creatinine Ratio 25.0 H, Glucose 144 H, Calcium 8.4 L Micro: Microbiology 12/20/22 13:45 Stool C. difficile GDH Antigen & Toxins - Final 12/20/22 13:45 Stool C. difficile DNA Amplification - Final 12/17/22 13:25 Blood Culture (Wb) - Left Forearm Blood Culture - Preliminary No growth in 48 hours. 12/17/22 13:30 Blood Culture (Wb) - Left Hand Blood Culture - Preliminary No growth in 48 hours. 12/17/22 14:15 Urine Catheter - Soto Urine Culture - Final Enterobacter cloacae complex 12/17/22 13:13 Wound - Leg, Right Gram Stain - Final 12/17/22 13:13 Wound - Leg, Right Wound Culture - Final Streptococcus group A Physical Exam Const alert and no apparent distress HEENT head/scalp atraumatic and moist oral mucous membranes Resp normal respiratory effort, no retractions, no use of accessory muscles and clear to auscultation bilaterally Cardio regular rate, regular rhythm, S1 normal heart sound and S2 normal heart sound GI normal to inspection, nondistended, normoactive bowel sounds, soft to palpation, non-tender and non-distended GI Narrative: PEG in place Assessment & Plan Assessment/Plan (1) Foot osteomyelitis: PLAN: Bilateral foot osteomyelitis No sepsis present on presentation Podiatry is following and feels that these are stable overall. No immediate surgical plans unless gas or more severe infection develops Vascular surgery has evaluated as well and indicated they would consider further surgical intervention and vascular surgery if he had no bleeding but bleeding was present on his EGD and therefore I suspect vascular intervention will be precluded Lower extremity MRI demonstrates calcaneal and fibular osteomyelitis Continue broad-spectrum antibiotics with vancomycin and Zosyn Wound cultures polymicrobial showing group A strep, Staph aureus, and Klebsiella Blood cultures negative Infectious diseases following (2) Cellulitis of leg, right: PLAN: As above (3) Acute on chronic anemia: PLAN: Suspect recurrent bleeding from his previously diagnosed duodenal ulcer Patient transfused 1 unit on admission Baseline hemoglobin 8-9 and hemoglobin on admission was between 6.5 and 7.1 Hemoglobin is now stable at 9.2 Discontinue Protonix drip and transition to 3 times daily lansoprazole via PEG Hold DVT prophylaxis again for today and if remains stable will reinitiate DVT prophylaxis again tomorrow Continue home supplemental iron GI following-appreciate input Recent GI bleed secondary to duodenal ulcer/esophageal ulcers/severe esophagitis -Hemoglobin is currently stable and trending up with current hemoglobin at 9.2. -EGD performed and showed duodenal ulcer that required clipping?while at [facility] in August -Patient with multiple EGDs here with most recent being on 11/06/2022 that demonstrated esophageal stenosis which was dilated, severe erosive esophagitis which was injected and treated with heater probe, a medium size hiatal hernia, multiple nonbleeding duodenal ulcers with no stigmata of bleeding and a PEG was placed at that time to assist with nutrition -Discontinue Protonix drip and transition to lansoprazole via PEG 3 times daily 30 mg -GI following-appreciate input -Per GI if patient requires readmission again will need esophageal stenting (4) UTI (urinary tract infection): PLAN: Catheter associated Enterobacter cloacae UTI Urine culture shows resistance only to cefazolin for his Enterobacter Continue vancomycin and Zosyn at this time ID following and appreciate input Soto cath changed (5) Severe malnutrition: PLAN: Continue tube feed via PEG P.o. intake remains poor and brother reports he is really only eating ice creams and puddings Restart tube feeds today along with free water Dietitian following (6) Dysphagia: PLAN: Speech therapy is following Patient on modified diet and p.o. intake is extremely poor per discussion with his brother Continue tube feeds via PEG after EGD (7) Thrombocytosis: PLAN: Suspect reactive and related to anemia Slightly trending up Continue to monitor It is chronically elevated likely related to his chronic lower extremity infections and anemia due to blood loss (8) Leukocytosis: PLAN: Improving (9) Respiratory insufficiency: PLAN: Acute hypoxia Patient on room air at baseline Currently requiring 2 L nasal cannula--> sats are 100% Wean oxygen as able No significant concerns for pulmonary infection may need discharged on oxygen therapy (10) Diarrhea: PLAN: Suspect related to tube feed Cdiff negative PLAN: Plan Chronic conditions: Pressure yvmki-jkogwdndool-Yadoodgv are pending-Antibiotics per infectious disease-Has had previous debridement in the OR by plastic surgery-Wound at this time is overall clean appearing without any signs of recurrent issues however nonhealing well likely related to his nutritional status and baseline chronic medical issues-Continue wound care-Appreciate plastic surgery involvement chronic urinary retention-Patient with Soto catheter from facility-Was placed at [facility] for severe urinary retention-Continue Flomax-Continue chronic Soto--> patient has been leaking around current Soto we will change especially with UTI -Recommend outpatient follow-up with urology History of stroke/bilateral carotid stenosis/HTN/HPL-Restart statin-Hold diuresis-Restart Coreg-Continue to hold lisinopril 20 mg daily and reevaluate ability to restart tomorrow-Continue to hold amlodipine 10 mg daily and reevaluate ability to restart tomorrow Severe peripheral vascular disease-Aspirin/Plavix are on hold secondary to recurrent GI bleeding-Continue outpatient vascular heorgi-or-qrwdk TAMIE at 0.43 and left TAMIE at 0.33 BPH-Continue home Flomax Anxiety/depression-Continue sertraline History of alcohol abuse-Patient quit drinking following his stroke-Encourage continued sobriety Tobacco abuse-Encouraged cessation-Nicotine replacement available if desired DVT prophylaxis -SCDs -Chemoprophylaxis deferred due to recent GI bleeding CODE STATUS -Full code -We need to further discuss this patient's current goals do not seem consistent with that of being full code Disposition: -Hospice met with patient and family. Plan is to discharge back to the skilled facility and try with some rehab to use up the rest of his 100 days and if he does not progress during that time. Transition to hospice. Anticipate discharge sometime mid next week Charges/Coding Visit Charges Inpatient E&M: 88833 Subs Hosp L2
[2022-12-21 10:19] LABS: Vancomycin, Trough Level 12.8 ug/mL (5.0-15.0)
--- NOTE | 2022-12-21 10:23 | NURSING ---
Spoke with pharmacist regarding vancomycin trough. Informed to hold dose and new bag will be sent.
--- NOTE | 2022-12-21 10:27 | PCM.RX.CS ---
Consult Type of Consult: Follow-up Suspected Infection: Skin/Soft tissue - Wound infection Labs: Sodium 135 mmol/L (136-145) L 12/21/22 05:06 Potassium 3.7 mmol/L (3.5-5.1) 12/21/22 05:06 Chloride 105 mmol/L (98-107) 12/21/22 05:06 Carbon Dioxide 24.0 mmol/L (21.0-32.0) 12/21/22 05:06 Anion Gap 6 (5-15) 12/21/22 05:06 BUN 9 mg/dL (7-18) 12/21/22 05:06 Creatinine 0.36 mg/dL (0.70-1.30) L 12/21/22 05:06 Est GFR (MDRD) Af Amer 305 mL/min (>60) 12/21/22 05:06 Est GFR (MDRD) Non-Af 252 mL/min (>60) 12/21/22 05:06 BUN/Creatinine Ratio 25.0 RATIO (10-20) H 12/21/22 05:06 Glucose 144 mg/dL (74-106) H 12/21/22 05:06 Vancomycin Trough 12.8 ug/mL (5.0-15.0) 12/21/22 09:37 Microbiology: Microbiology 12/20/22 13:45 Stool C. difficile GDH Antigen & Toxins - Final 12/20/22 13:45 Stool C. difficile DNA Amplification - Final 12/17/22 13:25 Blood Culture (Wb) - Left Forearm Blood Culture - Preliminary No growth in 48 hours. 12/17/22 13:30 Blood Culture (Wb) - Left Hand Blood Culture - Preliminary No growth in 48 hours. 12/17/22 14:15 Urine Catheter - Soto Urine Culture - Final Enterobacter cloacae complex 12/17/22 13:13 Wound - Leg, Right Gram Stain - Final 12/17/22 13:13 Wound - Leg, Right Wound Culture - Final Streptococcus group A Goal Trough: 15-20 mcg/mL Pharmacy Plan for Drug Dosing: VANCOMYCIN LEVEL RECEIVED Current Vancomycin Dose: 1000mg Q12H Number of Doses Received: 1000mg x3, 750mg x1, 1750mg x1 Vancomycin Level: 12.8 Hours Since Last Dose: 12.25 Renal Function: sCr 0.36 Renal Function Trend: stable Vancomycin Plan/Comments: Increase Vancomycin dosing regimen to 1250mg Q12H Pending Level: Vancomycin trough @ 222912/22/22 Pharmacy Service will continue to monitor and adjust dosing as required. Labs to be done on [date and time ordered]: Vancomycin trough @ 222912/22/22
--- NOTE | 2022-12-21 10:59 | CASEMGMT ---
Discharge Planning Requested labs sent to [facility] via [facility]. Nina Ramon, Discharge Planning Asst.
[2022-12-21] MEDS: DAKIN'S SOL HALF STRENGTH (=0.25%) 1 APPLIC TOPICAL (11:21)
[2022-12-21] MEDS: 0.9% Saline Lock 10 ML Syringe IV (11:50)
[2022-12-21 13:00] LABS: Pathologist Review Reviewed
--- NOTE | 2022-12-21 14:01 | PN.ID_ITS ---
Physical Exam Narrative Feeling ok today, no fever, no n/v/d. Const alert and no apparent distress General Appearance: cooperative Resp normal air movement and clear to auscultation bilaterally Cardio regular rate and regular rhythm GI soft to palpation, non-tender and non-distended Skin Skin Narrative: feet wrapped ID ID: Route of nutrition/ use of supplements: [] Nutritional Intake: [] IV Site: [] Soto Catheter: [] Assessment & Plan Assessment/Plan (1) Foot osteomyelitis: PLAN: On vanc/zosyn. Podiatry following, wound cx so far with MRSA, strep, klebs. Will order picc and 6 weeks vanc/ceftriaxone/flagyl, stop date 01/28/23 with weekly labs. Will follow, ID follow up in 4 weeks, wrote rx, d/w case management social worker
--- NOTE | 2022-12-21 14:21 | TREXTCAR_ITS ---
Diet Diet Order/Speech Therapy: 12/19/22 08:58 Diet: Clear Liquid Is pt able to select menu?: No Wound(s) Coccyx: Wound Type: Pressure Injury Dressing Change: Dakins moistened gauze Lt buttock: Wound Type: Pressure Injury Dressing Change: Mepilex Scrotum #1: Wound Type: Pressure Injury Scrotum #2: Wound Type: Pressure Injury Rt ankle: Wound Type: dry eschar Dressing Change: betadine gauze Rt heel: Wound Type: Pressure Injury Dressing Change: betadine gauze Rt top of foot: Wound Type: dry eschar Dressing Change: betadine gauze Rt ramirez: Wound Type: dry eschar Dressing Change: betadine gauze Rt lateral foot: Wound Type: dry eschar Dressing Change: betadine gauze Rt lateral distal foot: Wound Type: dry eschar Dressing Change: betadine gauze Lt anterior ankle: Wound Type: Stasis Ulcer Lt lateral foot: Wound Type: dry eschar Dressing Change: betadine gauze Rt toes: Wound Type: Stasis Ulcer left dorsal foot: Wound Type: cluster of dry eschar Dressing Change: betadine moistened gauze left great toe: Wound Type: dry eschar Dressing Change: betadine moistened gauze tip of left 2nd toe: Wound Type: dry eshar Dressing Change: betadine moistened gauze dorsal surface of the left 2nd toe: Wound Type: dry eschar Dressing Change: betadine gauze left 5th toe: Wound Type: dry eschar Dressing Change: betadine with dry dressing left heel: Wound Type: Pressure Injury Dressing Change: betadine with dry dressing RFA: Wound Type: Skin Tear Therapies Weight Bearing: Non weight bearing Extremity Affected:: Bilateral Lower Physical Therapy: Eval and Treat Occupational Therapy: Eval and Treat Speech Therapy: Eval and Treat Problem/Diagnosis (1) Foot osteomyelitis: Status: Acute Code(s): M86.9 - Osteomyelitis, unspecified Plan: Bilateral foot osteomyelitis No sepsis present on presentation Podiatry is following and feels that these are stable overall. No immediate surgical plans unless gas or more severe infection develops Vascular surgery has evaluated as well and indicated they would consider further surgical intervention and vascular surgery if he had no bleeding but bleeding was present on his EGD and therefore I suspect vascular intervention will be precluded Lower extremity MRI demonstrates calcaneal and fibular osteomyelitis Continue broad-spectrum antibiotics with vancomycin and Zosyn Wound cultures polymicrobial showing group A strep, Staph aureus, and Klebsiella Blood cultures negative Infectious diseases following (2) Cellulitis of leg, right: Status: Acute Code(s): L03.115 - Cellulitis of right lower limb Plan: As above (3) Acute on chronic anemia: Status: Chronic Code(s): D64.9 - Anemia, unspecified Plan: Suspect recurrent bleeding from his previously diagnosed duodenal ulcer Patient transfused 1 unit on admission Baseline hemoglobin 8-9 and hemoglobin on admission was between 6.5 and 7.1 Hemoglobin is now stable at 9.2 Discontinue Protonix drip and transition to 3 times daily lansoprazole via PEG Hold DVT prophylaxis again for today and if remains stable will reinitiate DVT prophylaxis again tomorrow Continue home supplemental iron GI following-appreciate input Recent GI bleed secondary to duodenal ulcer/esophageal ulcers/severe esophagitis -Hemoglobin is currently stable and trending up with current hemoglobin at 9.2. -EGD performed and showed duodenal ulcer that required clipping?while at [place] in August -Patient with multiple EGDs here with most recent being on 11/06/2022 that demonstrated esophageal stenosis which was dilated, severe erosive esophagitis which was injected and treated with heater probe, a medium size hiatal hernia, multiple nonbleeding duodenal ulcers with no stigmata of bleeding and a PEG was placed at that time to assist with nutrition -Discontinue Protonix drip and transition to lansoprazole via PEG 3 times daily 30 mg -GI following-appreciate input -Per GI if patient requires readmission again will need esophageal stenting (4) UTI (urinary tract infection): Status: Acute Code(s): N39.0 - Urinary tract infection, site not specified Plan: Catheter associated Enterobacter cloacae UTI Urine culture shows resistance only to cefazolin for his Enterobacter Continue vancomycin and Zosyn at this time ID following and appreciate input Soto cath changed (5) Severe malnutrition: Status: Acute Code(s): E43 - Unspecified severe protein-calorie malnutrition Plan: Continue tube feed via PEG P.o. intake remains poor and brother reports he is really only eating ice creams and puddings Restart tube feeds today along with free water Dietitian following (6) Dysphagia: Status: Acute Code(s): R13.10 - Dysphagia, unspecified Plan: Speech therapy is following Patient on modified diet and p.o. intake is extremely poor per discussion with his brother Continue tube feeds via PEG after EGD (7) Thrombocytosis: Status: Acute Code(s): D75.839 - Thrombocytosis, unspecified Plan: Suspect reactive and related to anemia Slightly trending up Continue to monitor It is chronically elevated likely related to his chronic lower extremity infections and anemia due to blood loss (8) Leukocytosis: Status: Acute Code(s): D72.829 - Elevated white blood cell count, unspecified Plan: Improving (9) Respiratory insufficiency: Status: Acute Code(s): R06.89 - Other abnormalities of breathing Plan: Acute hypoxia Patient on room air at baseline Currently requiring 2 L nasal cannula--> sats are 100% Wean oxygen as able No significant concerns for pulmonary infection may need discharged on oxygen therapy (10) Diarrhea: Status: Acute Code(s): R19.7 - Diarrhea, unspecified Plan: Suspect related to tube feed Cdiff negative Plan Chronic conditions: * Pressure qjrpz-sqnedvfqkzh-Hplxvazs are pending-Antibiotics per infectious disease-Has had previous debridement in the OR by plastic surgery-Wound at this time is overall clean appearing without any signs of recurrent issues however nonhealing well likely related to his nutritional status and baseline chronic medical issues-Continue wound care-Appreciate plastic surgery involvement * chronic urinary retention-Patient with Soto catheter from facility-Was placed at [place] for severe urinary retention-Continue Flomax-Continue chronic Soto--> patient has been leaking around current Soto we will change especially with UTI -Recommend outpatient follow-up with urology * History of stroke/bilateral carotid stenosis/HTN/HPL-Restart statin-Hold diuresis-Restart Coreg-Continue to hold lisinopril 20 mg daily and reevaluate ability to restart tomorrow-Continue to hold amlodipine 10 mg daily and reevaluate ability to restart tomorrow * Severe peripheral vascular disease-Aspirin/Plavix are on hold secondary to recurrent GI bleeding-Continue outpatient vascular cijzxo-kf-esuff TAMIE at 0.43 and left TAMIE at 0.33 * BPH-Continue home Flomax * Anxiety/depression-Continue sertraline * History of alcohol abuse-Patient quit drinking following his stroke-Encourage continued sobriety * Tobacco abuse-Encouraged cessation-Nicotine replacement available if desired DVT prophylaxis -SCDs -Chemoprophylaxis deferred due to recent GI bleeding CODE STATUS -Full code -We need to further discuss this patient's current goals do not seem consistent with that of being full code Disposition: -Hospice met with patient and family. Plan is to discharge back to the skilled facility and try with some rehab to use up the rest of his 100 days and if he does not progress during that time. Transition to hospice. Anticipate discharge sometime mid next week Allergies/Procedures Done in Hospital Allergies No Known Allergies Allergy (Verified 12/09/22 13:41) Type of Care/Length of Stay Estimated LOS: More Than 30 Days Type of Care Needed: Intermediate Rehab Potential: Poor Prognosis: Poor Additional Orders/Day of Discharge Day of Discharge: 12/21/22 Dietary and Speech Recommendations Dietitian Recommendations/Changes: Will continue Jevity 1.5 at 60 ml with 125 ml water flush every 4 hours to provide ~ 2160 jacqueline/ 92 gm pro/ 1844 ml free water/day. Will continue 8 oz Alfonso bid via PEG to help w/ wound healing if consumed. Will monitor wts for changes - order daily wts. Discharge Plan Admission Admit Date/Time: 12/17/22 17:43 Primary Reason for Your Visit: feet osteomyelitis Attending Provider: Shankar Watts Primary Care Provider: Edmundo Hahn Consulting Providers: Jos Reese ; Shankar Solis ; Julia Pillai ; Ramesh Ventura ; Ken Sarabia ; Mary Nolasco ; Zully Vann ; Payal Chapman NP ; Luanne Sullivan Discharge Orders/Prescriptions Prescriptions: New ceftriaxone 2 gram recon soln 2 g IV DAILY Qty: 37 0RF Rx Instructions: stop date 01/28/23 dx: foot osteo weekly bmp, cbc, vanc trough, and esr. Fax to [phone] metronidazole 500 mg Tablet 500 mg PO TID 37 Days Qty: 111 0RF vancomycin 1.25 gram recon soln 1.25 g IV Q12H Qty: 74 0RF Rx Instructions: stop date 01/28/23 dx: foot osteo weekly bmp, cbc, vanc trough, and esr. Fax to [phone] acetaminophen 650 mg/20.3 mL Solution 1,000 mg G-tube TID Qty: 2030 0RF Jevity 1.5 Jacqueline 0.06 gram-1.5 kcal/mL liquid 1,000 ml feeding tube .continuous Qty: 5688 0RF Rx Instructions: 60cc/h via GT Alfonso (with collagen) 7-7-1.5 gram Powder In Packet 1 packet PO BIDCM Qty: 30 0RF lansoprazole 15 mg Capsule,Delayed Release(Dr/Ec) 30 mg G-tube TID Qty: 30 0RF HySept 0.25 % Solution 1 applic topical DAILY Qty: 473 0RF Protocol: *Topical Application Instructions APPLICATION INSTRUCTIONS: sacral wound menthol-zinc oxide [Calmoseptine] 0.44-20.6 % Ointment 1 applic topical TID Qty: 113 0RF Protocol: *Topical Application Instructions APPLICATION INSTRUCTIONS: apply to buttocks area Continued cholecalciferol (vitamin D3) 50 mcg (2,000 unit) capsule 50 mcg PO DAILY magnesium oxide [MagOx] 400 mg (241.3 mg magnesium) tablet 400 mg PO DAILY sertraline 100 mg tablet 100 mg PO DAILY tamsulosin 0.4 mg Capsule 0.4 mg PO QHS pantoprazole 40 mg tablet,delayed release (DR/EC) 40 mg PO BID Entresto 24-26 mg Tablet 1 tab PO BID nystatin-triamcinolone 100,000-0.1 unit/g-% Cream 1 applic TOPICAL BID mirtazapine 15 mg Tablet,Disintegrating 15 mg PO QHS Culturelle 10 billion cell Capsule 1 cap PO BID multivitamin,tx-minerals Tablet 1 tab PO DAILY Pro-Stat AWC 17-100 gram-kcal/30 mL Liquid 30 ml PO QHS atorvastatin 40 MG tablet 40 mg PO QHS ipratropium-albuterol 0.5 mg-3 mg(2.5 mg base)/3 mL solution for nebulization 3 ml inhalation 4XD amlodipine 5 mg tablet 5 mg PO DAILY carvedilol [Coreg] 3.125 mg tablet 3.125 mg PO BID ascorbic acid (vitamin C) 500 mg tablet 500 mg PO TID ferrous sulfate 300 mg (60 mg iron)/5 mL liquid See Rx Instructions .ROUTE .COMPLEX Rx Instructions: GIVE 6.8 ML VIA PEG TUBE EVERY MORNING AND AT BEDTIME FOR SUPPLEMENT Discontinued oxycodone 5 mg capsule 5 mg PO Q8H PRN (Reason: Severe Pain (Scale Score 7-10)) sulfamethoxazole-trimethoprim [Bactrim DS] 800-160 mg Tablet 1 tab PO BID cephalexin [Keflex] 500 mg Capsule 500 mg PO TID Rx Instructions: stop date 12/31 Referrals / Follow Up: Edmundo Hahn MD [Primary Care Provider] - Disposition Disposition (needs filled in before D/C Order can be placed): Group Home Facility
--- NOTE | 2022-12-21 14:46 | PHA.DC.MR ---
Pharmacy Service has performed discharge medication reconciliation for this patient. The patient's discharge medication list was reviewed for discrepancies and discrepancies were resolved. Home Medications pantoprazole 40 mg tablet,delayed release 40 mg PO BID ACID REFLUX 09/07/22 sertraline 100 mg tablet 100 mg PO DAILY DEPRESSION 09/07/22 tamsulosin 0.4 mg capsule 0.4 mg PO QHS PROSTATE 09/07/22 cholecalciferol (vitamin D3) 50 mcg (2,000 unit) capsule 50 mcg PO DAILY SUPPLEMENT 09/22/22 magnesium oxide 400 mg (241.3 mg magnesium) tablet (MagOx) 400 mg PO DAILY SUPPLEMENT 11/25/22 Lactobacillus rhamnosus GG 10 billion cell capsule (Culturelle) 1 cap PO BID GUT GEALTH 12/17/22 amino acids-protein hydrolysate 17 gram-100 kcal/30 mL oral liquid (Pro-Stat AWC) 30 ml PO QHS WOUND CARE 12/17/22 amlodipine 5 mg tablet 5 mg PO DAILY BLOOD PRESSURE 12/17/22 ascorbic acid (vitamin C) 500 mg tablet 500 mg PO TID SUPPLEMENT 12/17/22 atorvastatin 40 mg tablet 40 mg PO QHS CHOLESTEROL 12/17/22 carvedilol 3.125 mg tablet (Coreg) 3.125 mg PO BID HEART 12/17/22 ferrous sulfate 300 mg (60 mg iron)/5 mL oral liquid See Rx Instructions .Route .COMPLEX 12/17/22 ipratropium 0.5 mg-albuterol 3 mg (2.5 mg base)/3 mL nebulization soln 3 ml inhalation 4XD SHORTNESS OF BREATH 12/17/22 mirtazapine 15 mg disintegrating tablet 15 mg PO QHS APPETITE 12/17/22 multivitamin,tx-minerals 1 tab PO DAILY SUPPLEMENT 12/17/22 nystatin-triamcinolone 100,000 unit/g-0.1 % topical cream 1 applic topical BID WOUND 12/17/22 sacubitril 24 mg-valsartan 26 mg tablet (Entresto) 1 tab PO BID BLOOD PRESSURE 12/17/22 acetaminophen 650 mg/20.3 mL oral solution 1,000 mg (31.2308 mL) G-tube TID #2,030 mL 12/21/22 arginine 7 gram-glutam 7 gram-CaHMB 1.5 duiu-adnfw-kq-min oral pwd pkt (Alfonso (with collagen)) 1 packet PO BIDCM #30 ea 12/21/22 ceftriaxone 2 gram intravenous solution 2 g IV DAILY #37 ea 12/21/22 lactose-reduced food with fiber 0.06 gram-1.5 kcal/mL oral liquid (Jevity 1.5 Stephen) 1,000 ml feeding tube .continuous #5,688 mL 12/21/22 lansoprazole 15 mg capsule,delayed release 30 mg G-tube TID #30 caps 12/21/22 menthol 0.44 %-zinc oxide 20.6 % topical ointment (Calmoseptine) 1 applic topical TID #113 grams 12/21/22 metronidazole 500 mg tablet 500 mg PO TID 37 days #111 tabs 12/21/22 sodium hypochlorite 0.25 % solution (HySept) 1 applic topical DAILY #473 mL 12/21/22 vancomycin 1.25 gram intravenous solution 1.25 g IV Q12H #74 ea 12/21/22
--- NOTE | 2022-12-21 14:49 | CASEMGMT ---
Patient may be returning today. SW notified [facility]. Plan: d/c back to [facility] under skilled level of care. Physicians will transport patient. Crystal IBARRA
[2022-12-21 15:09] VITALS: BP 139/68; PULSE 89; RESP 18; TEMP 35.7; O2SAT 99
[2022-12-21] MEDS: metroNIDAZOLE 500 MG Tablet PO (15:14)
--- NOTE | 2022-12-21 15:21 | CASEMGMT ---
Discharge Planning Patient will be transported to [facility] via cot by Physicians. Discharge orders, signed med list and transport time sent to [facility] via [facility]. Nina Ramon, Discharge Planning Asst.
--- NOTE | 2022-12-21 15:40 | CASEMGMT ---
SW called patient's sister/NICOLETTE Velasquez and let her know patient will return to [facility] today at 7p. Crystal IBARRA
--- NOTE | 2022-12-21 17:26 | DS.PCM_ITS ---
Providers Date of Admission: 12/17/22 Primary Care Physician: Dr. Edmundo Hahn MD Consultations 12/17/22 17:39 Consult: Podiatry Routine Consulting Provider: Jos Reese Reason for Consult: ischemic and infected foot ulcers EMERGENT Consult: No MD Notified: Yes Date Notified: 12/17/22 Time Notified: 18:10 Method of Notification: Text Consult: Vascular Surgery Routine Consulting Provider: Shankar Solis Reason for Consult: ischemis foot and leg wounds EMERGENT Consult: No MD Notified: Yes Date Notified: 12/17/22 Time Notified: 18:12 Method of Notification: Text 12/17/22 17:44 Consult: Onc/Wound/cross country coach Routine Comment: Reason for Consult:: leg wounds 12/18/22 08:30 Consult: Gastroenterology Routine Consulting Provider: [facility] Reason for Consult: severe anemia EMERGENT Consult: No MD Notified: Yes Date Notified: 12/18/22 Time Notified: 08:30 Method of Notification: Verbal 12/18/22 08:34 Consult: Infectious Disease Routine Consulting Provider: Ramesh Ventura Reason for Consult: Foot wound EMERGENT Consult: No Notified: Yes Date Notified: 12/18/22 Time Notified: 08:42 Method of Notification: Text 12/18/22 10:17 Consult: Hospice / Palliative Care Routine Consulting Provider: [facility] Reason for Consult: End of life EMERGENT Consult: No Notified: Yes Date Notified: 12/18/22 Time Notified: 11:28 Method of Notification: per social media intern Reason For Visit: SEVERE SEPSIS Diagnosis Discharge Diagnosis (1) Foot osteomyelitis: Status: Acute Code(s): M86.9 - Osteomyelitis, unspecified Plan: Bilateral foot osteomyelitis No sepsis present on presentation Podiatry is following and feels that these are stable overall. No immediate surgical plans unless gas or more severe infection develops Vascular surgery has evaluated as well and indicated they would consider further surgical intervention and vascular surgery if he had no bleeding but bleeding was present on his EGD and therefore I suspect vascular intervention will be precluded Lower extremity MRI demonstrates calcaneal and fibular osteomyelitis Continue broad-spectrum antibiotics with vancomycin and Zosyn Wound cultures polymicrobial showing group A strep, Staph aureus, and Klebsiella Blood cultures negative Infectious diseases following (2) Cellulitis of leg, right: Status: Acute Code(s): L03.115 - Cellulitis of right lower limb Plan: As above (3) Acute on chronic anemia: Status: Chronic Code(s): D64.9 - Anemia, unspecified Plan: Suspect recurrent bleeding from his previously diagnosed duodenal ulcer Patient transfused 1 unit on admission Baseline hemoglobin 8-9 and hemoglobin on admission was between 6.5 and 7.1 Hemoglobin is now stable at 9.2 Discontinue Protonix drip and transition to 3 times daily lansoprazole via PEG Hold DVT prophylaxis again for today and if remains stable will reinitiate DVT prophylaxis again tomorrow Continue home supplemental iron GI following-appreciate input Recent GI bleed secondary to duodenal ulcer/esophageal ulcers/severe esophagitis -Hemoglobin is currently stable and trending up with current hemoglobin at 9.2. -EGD performed and showed duodenal ulcer that required clipping?while at [facility] in August -Patient with multiple EGDs here with most recent being on 11/06/2022 that demonstrated esophageal stenosis which was dilated, severe erosive esophagitis which was injected and treated with heater probe, a medium size hiatal hernia, multiple nonbleeding duodenal ulcers with no stigmata of bleeding and a PEG was placed at that time to assist with nutrition -Discontinue Protonix drip and transition to lansoprazole via PEG 3 times daily 30 mg -GI following-appreciate input -Per GI if patient requires readmission again will need esophageal stenting (4) UTI (urinary tract infection): Status: Acute Code(s): N39.0 - Urinary tract infection, site not specified Plan: Catheter associated Enterobacter cloacae UTI Urine culture shows resistance only to cefazolin for his Enterobacter Continue vancomycin and Zosyn at this time ID following and appreciate input Soto cath changed (5) Severe malnutrition: Status: Acute Code(s): E43 - Unspecified severe protein-calorie malnutrition Plan: Continue tube feed via PEG P.o. intake remains poor and brother reports he is really only eating ice creams and puddings Restart tube feeds today along with free water Dietitian following (6) Dysphagia: Status: Acute Code(s): R13.10 - Dysphagia, unspecified Plan: Speech therapy is following Patient on modified diet and p.o. intake is extremely poor per discussion with his brother Continue tube feeds via PEG after EGD (7) Thrombocytosis: Status: Acute Code(s): D75.839 - Thrombocytosis, unspecified Plan: Suspect reactive and related to anemia Slightly trending up Continue to monitor It is chronically elevated likely related to his chronic lower extremity infections and anemia due to blood loss (8) Leukocytosis: Status: Acute Code(s): D72.829 - Elevated white blood cell count, unspecified Plan: Improving (9) Respiratory insufficiency: Status: Acute Code(s): R06.89 - Other abnormalities of breathing Plan: Acute hypoxia Patient on room air at baseline Currently requiring 2 L nasal cannula--> sats are 100% Wean oxygen as able No significant concerns for pulmonary infection may need discharged on oxygen therapy (10) Diarrhea: Status: Acute Code(s): R19.7 - Diarrhea, unspecified Plan: Suspect related to tube feed Cdiff negative Plan Chronic conditions: * Pressure kzpxa-ibhrlpsssql-Azrxqmpf are pending-Antibiotics per infectious disease-Has had previous debridement in the OR by plastic surgery-Wound at this time is overall clean appearing without any signs of recurrent issues however nonhealing well likely related to his nutritional status and baseline chronic medical issues-Continue wound care-Appreciate plastic surgery involvement * chronic urinary retention-Patient with Soto catheter from facility-Was placed at [facility] for severe urinary retention-Continue Flomax-Continue chronic Soto--> patient has been leaking around current Soto we will change especially with UTI -Recommend outpatient follow-up with urology * History of stroke/bilateral carotid stenosis/HTN/HPL-Restart statin-Hold diuresis-Restart Coreg-Continue to hold lisinopril 20 mg daily and reevaluate ability to restart tomorrow-Continue to hold amlodipine 10 mg daily and reevaluate ability to restart tomorrow * Severe peripheral vascular disease-Aspirin/Plavix are on hold secondary to recurrent GI bleeding-Continue outpatient vascular zkdrir-uk-gssft TAMIE at 0.43 and left TAMIE at 0.33 * BPH-Continue home Flomax * Anxiety/depression-Continue sertraline * History of alcohol abuse-Patient quit drinking following his stroke-Encourage continued sobriety * Tobacco abuse-Encouraged cessation-Nicotine replacement available if desired DVT prophylaxis -SCDs -Chemoprophylaxis deferred due to recent GI bleeding CODE STATUS -Full code -We need to further discuss this patient's current goals do not seem consistent with that of being full code Disposition: -Hospice met with patient and family. Plan is to discharge back to the skilled facility and try with some rehab to use up the rest of his 100 days and if he does not progress during that time. Transition to hospice. Anticipate discharge sometime mid next week Medications at Discharge Home Medications pantoprazole 40 mg tablet,delayed release 40 mg PO BID ACID REFLUX 09/07/22 sertraline 100 mg tablet 100 mg PO DAILY DEPRESSION 09/07/22 tamsulosin 0.4 mg capsule 0.4 mg PO QHS PROSTATE 09/07/22 cholecalciferol (vitamin D3) 50 mcg (2,000 unit) capsule 50 mcg PO DAILY SUPPLEMENT 09/22/22 magnesium oxide 400 mg (241.3 mg magnesium) tablet (MagOx) 400 mg PO DAILY SUPPLEMENT 11/25/22 Lactobacillus rhamnosus GG 10 billion cell capsule (Culturelle) 1 cap PO BID GUT GEALTH 12/17/22 amino acids-protein hydrolysate 17 gram-100 kcal/30 mL oral liquid (Pro-Stat AWC) 30 ml PO QHS WOUND CARE 12/17/22 amlodipine 5 mg tablet 5 mg PO DAILY BLOOD PRESSURE 12/17/22 ascorbic acid (vitamin C) 500 mg tablet 500 mg PO TID SUPPLEMENT 12/17/22 atorvastatin 40 mg tablet 40 mg PO QHS CHOLESTEROL 12/17/22 carvedilol 3.125 mg tablet (Coreg) 3.125 mg PO BID HEART 12/17/22 ferrous sulfate 300 mg (60 mg iron)/5 mL oral liquid See Rx Instructions .Route .COMPLEX 12/17/22 ipratropium 0.5 mg-albuterol 3 mg (2.5 mg base)/3 mL nebulization soln 3 ml inha lation 4XD SHORTNESS OF BREATH 12/17/22 mirtazapine 15 mg disintegrating tablet 15 mg PO QHS APPETITE 12/17/22 multivitamin,tx-minerals 1 tab PO DAILY SUPPLEMENT 12/17/22 nystatin-triamcinolone 100,000 unit/g-0.1 % topical cream 1 applic topical BID WOUND 12/17/22 sacubitril 24 mg-valsartan 26 mg tablet (Entresto) 1 tab PO BID BLOOD PRESSURE 12/17/22 acetaminophen 650 mg/20.3 mL oral solution 1,000 mg (31.2308 mL) G-tube TID #2,030 mL 12/21/22 arginine 7 gram-glutam 7 gram-CaHMB 1.5 bhgv-jkaxc-lu-min oral pwd pkt (Alfonso (with collagen)) 1 packet PO BIDCM #30 ea 12/21/22 ceftriaxone 2 gram intravenous solution 2 g IV DAILY #37 ea 12/21/22 lactose-reduced food with fiber 0.06 gram-1.5 kcal/mL oral liquid (Jevity 1.5 Jacqueline) 1,000 ml feeding tube .continuous #5,688 mL 12/21/22 lansoprazole 15 mg capsule,delayed release 30 mg G-tube TID #30 caps 12/21/22 menthol 0.44 %-zinc oxide 20.6 % topical ointment (Calmoseptine) 1 applic topical TID #113 grams 12/21/22 metronidazole 500 mg tablet 500 mg PO TID 37 days #111 tabs 12/21/22 sodium hypochlorite 0.25 % solution (HySept) 1 applic topical DAILY #473 mL 12/21/22 vancomycin 1.25 gram intravenous solution 1.25 g IV Q12H #74 ea 12/21/22 Hospital Course Summary of Care Provided Minutes Spent on Discharge: 40 Medical Records Data Medical Nutrition Assessment Dietitian: Malnutrition Criteria Met Start: 12/20/22 08:11 Freq: Status: Active Protocol: Document 12/21/22 10:13 GEORGE (Rec: 12/21/22 10:13 GEORGE [id number]) Nutrition Malnutrition Evidence of Malnutrition Exists Yes Malnutrition (severe): Chronic Evidenced By Suboptimal Energy Intake ( Severe),Weight Loss (Severe), Physical Changes (Moderate) Intake Problem Inadequate Oral Intake Status Inactive Problem Increased Nutrient Needs (specify) Etiology protein related to skin status Signs/Symptoms as evidenced by wound nurse following re: multiple wounds/ ulcers to BLE Status Active Problem Clinical Problem Chronic Disease or Condition Related Malnutrition Etiology related to dysphagia and inadequate energy intake Signs/Symptoms as evidenced by need for PEG for nutrition - foods for pleasure only, 20% unintended wt loss x 8 mo lan support specialist, po intake meeting <75% of est nutritional needs and fat/ muscle wasting (orbitals, temporal, buccal areas; shoulders, clavicle, extremities) Status Active Problem Recommendation Dietitian Recommendations/Changes Will continue Jevity 1.5 at 60 ml with 125 ml water flush every 4 hours to provide ~ 2160 jacqueline/ 92 gm pro/ 1844 ml free water/day. Will continue 8 oz Alfonso bid via PEG to help w/ wound healing if consumed. Will monitor wts for changes - order daily wts. Weight / BMI Weight Weight: 70.3 kg Body Mass Index (BMI) 21.6 ABG / Lab / Microbiology Data Result Diagrams: 12/21/22 05:06 12/21/22 05:06 Laboratory: Laboratory Results - last 24 hr 12/20/22 07:45: Diff Path Review Reviewed 12/21/22 05:06: WBC 10.7, RBC 3.48 L, Hgb 9.5 L, Hct 33.0 L, MCV 94.8 H D, MCH 27.3, MCHC 28.8 L D, RDW Std Deviation 59.8 H, RDW Coeff of Luis 17.4 H, Plt Count 705 H, MPV 9.5, Immature Gran % (Auto) 1.200 H, Neut % (Auto) 75.1 H, Lymph % (Auto) 10.7 L, Wetzel % (Auto) 7.5, Eos % (Auto) 4.6, Baso % (Auto) 0.9, Absolute Neuts (auto) 8.0 H, Absolute Lymphs (auto) 1.14, Nucleated RBC % 0 12/21/22 05:06: Sodium 135 L, Potassium 3.7, Chloride 105, Carbon Dioxide 24.0, Anion Gap 6, BUN 9, Creatinine 0.36 L, Estim Creat Clear Calc 64.44, Est GFR (MDRD) Af Amer 305, Est GFR (MDRD) Non-Af 252, BUN/Creatinine Ratio 25.0 H, Glucose 144 H, Calcium 8.4 L 12/21/22 09:37: Vancomycin Trough 12.8 Microbiology: Microbiology 12/20/22 13:45 Stool C. difficile GDH Antigen & Toxins - Final 12/20/22 13:45 Stool C. difficile DNA Amplification - Final 12/17/22 13:25 Blood Culture (Wb) - Left Forearm Blood Culture - Preliminary No growth in 48 hours. 12/17/22 13:30 Blood Culture (Wb) - Left Hand Blood Culture - Preliminary No growth in 48 hours. 12/17/22 14:15 Urine Catheter - Soto Urine Culture - Final Enterobacter cloacae complex 12/17/22 13:13 Wound - Leg, Right Gram Stain - Final 12/17/22 13:13 Wound - Leg, Right Wound Culture - Final Streptococcus group A Meaningful Use Info Meaningful Use Diagnoses (Choose all that apply): None applicable Discharge Plan Admission Admit Date/Time: 12/17/22 17:43 Primary Reason for Your Visit: feet osteomyelitis Attending Provider: Shankar Watst Primary Care Provider: Edmundo Hahn Consulting Providers: Jos Reese ; Shankar Solis ; Julia Pillai ; Ramesh Ventura ; Ken Sarabia ; Mary Nolasco ; Zully Vann ; Payal Chapman NP ; Luanne Sullivan Discharge Orders/Prescriptions Prescriptions: New ceftriaxone 2 gram recon soln 2 g IV DAILY Qty: 37 0RF Rx Instructions: stop date 01/28/23 dx: foot osteo weekly bmp, cbc, vanc trough, and esr. Fax to [phone] metronidazole 500 mg Tablet 500 mg PO TID 37 Days Qty: 111 0RF vancomycin 1.25 gram recon soln 1.25 g IV Q12H Qty: 74 0RF Rx Instructions: stop date 01/28/23 dx: foot osteo weekly bmp, cbc, vanc trough, and esr. Fax to [phone] acetaminophen 650 mg/20.3 mL Solution 1,000 mg G-tube TID Qty: 2030 0RF Jevity 1.5 Jacqueline 0.06 gram-1.5 kcal/mL liquid 1,000 ml feeding tube .continuous Qty: 5688 0RF Rx Instructions: 60cc/h via GT Alfonso (with collagen) 7-7-1.5 gram Powder In Packet 1 packet PO BIDCM Qty: 30 0RF lansoprazole 15 mg Capsule,Delayed Release(Dr/Ec) 30 mg G-tube TID Qty: 30 0RF HySept 0.25 % Solution 1 applic topical DAILY Qty: 473 0RF Protocol: *Topical Application Instructions APPLICATION INSTRUCTIONS: sacral wound menthol-zinc oxide [Calmoseptine] 0.44-20.6 % Ointment 1 applic topical TID Qty: 113 0RF Protocol: *Topical Application Instructions APPLICATION INSTRUCTIONS: apply to buttocks area Continued cholecalciferol (vitamin D3) 50 mcg (2,000 unit) capsule 50 mcg PO DAILY magnesium oxide [MagOx] 400 mg (241.3 mg magnesium) tablet 400 mg PO DAILY sertraline 100 mg tablet 100 mg PO DAILY tamsulosin 0.4 mg Capsule 0.4 mg PO QHS pantoprazole 40 mg tablet,delayed release (DR/EC) 40 mg PO BID Entresto 24-26 mg Tablet 1 tab PO BID nystatin-triamcinolone 100,000-0.1 unit/g-% Cream 1 applic TOPICAL BID mirtazapine 15 mg Tablet,Disintegrating 15 mg PO QHS Culturelle 10 billion cell Capsule 1 cap PO BID multivitamin,tx-minerals Tablet 1 tab PO DAILY Pro-Stat AWC 17-100 gram-kcal/30 mL Liquid 30 ml PO QHS atorvastatin 40 MG tablet 40 mg PO QHS ipratropium-albuterol 0.5 mg-3 mg(2.5 mg base)/3 mL solution for nebulization 3 ml inhalation 4XD amlodipine 5 mg tablet 5 mg PO DAILY carvedilol [Coreg] 3.125 mg tablet 3.125 mg PO BID ascorbic acid (vitamin C) 500 mg tablet 500 mg PO TID ferrous sulfate 300 mg (60 mg iron)/5 mL liquid See Rx Instructions .ROUTE .COMPLEX Rx Instructions: GIVE 6.8 ML VIA PEG TUBE EVERY MORNING AND AT BEDTIME FOR SUPPLEMENT Discontinued oxycodone 5 mg capsule 5 mg PO Q8H PRN (Reason: Severe Pain (Scale Score 7-10)) sulfamethoxazole-trimethoprim [Bactrim DS] 800-160 mg Tablet 1 tab PO BID cephalexin [Keflex] 500 mg Capsule 500 mg PO TID Rx Instructions: stop date 12/31 Referrals / Follow Up: Edmundo Hahn MD [Primary Care Provider] - Disposition Disposition (needs filled in before D/C Order can be placed): [facility] Facility Charges/Coding Visit Charges Inpatient E&M: 13605 Disch Hosp >30min
[2022-12-21 18:41] VITALS: BP 138/59; PULSE 89; RESP 17; TEMP 36.1; O2SAT 100
== END 2022-12-21 19:06 | disposition skilled nursing facility (03) | DRG 380 ==
LOC: ED 15:09 → PCU 17:43
PROVIDERS: Hospitalist; Internal Medicine; Internal Medicine Gastroenterology; Podiatrist; Admitting Provider Internal Medicine; Emergency Provider Emergency Medicine; PCP Family Medicine
PROC: 0DJ08ZZ Inspection of Upper Intestinal Tract, Via Natural or Artificial Opening Endoscopic (ICD-10-PCS; CPT 43235; principal; 2022-12-18 17:40)
DX: K22.11 Ulcer of esophagus with bleeding (principal); L89.154 Pressure ulcer of sacral region, stage 4; E43 Unspecified severe protein-calorie malnutrition; L89.613 Pressure ulcer of right heel, stage 3; I70.263 Atherosclerosis of native arteries of extremities with gangrene, bilateral legs; M86.171 Other acute osteomyelitis, right ankle and foot; I42.9 Cardiomyopathy, unspecified; T83.511A Infection and inflammatory reaction due to indwelling urethral catheter, initial encounter; M86.172 Other acute osteomyelitis, left ankle and foot; L03.115 Cellulitis of right lower limb; N39.0 Urinary tract infection, site not specified; Z16.19 Resistance to other specified beta lactam antibiotics; I95.9 Hypotension, unspecified; L89.620 Pressure ulcer of left heel, unstageable; Z93.1 Gastrostomy status; D63.8 Anemia in other chronic diseases classified elsewhere; I10 Essential (primary) hypertension; E78.5 Hyperlipidemia, unspecified; K29.80 Duodenitis without bleeding; K22.2 Esophageal obstruction; R19.7 Diarrhea, unspecified; F10.11 Alcohol abuse, in remission; K26.9 Duodenal ulcer, unspecified as acute or chronic, without hemorrhage or perforation; Y84.6 Urinary catheterization as the cause of abnormal reaction of the patient, or of later complication, without mention of misadventure at the time of the procedure; Z79.2 Long term (current) use of antibiotics; R13.10 Dysphagia, unspecified; N40.1 Benign prostatic hyperplasia with lower urinary tract symptoms; R33.8 Other retention of urine; B96.1 Klebsiella pneumoniae [K. pneumoniae] as the cause of diseases classified elsewhere; B95.2 Enterococcus as the cause of diseases classified elsewhere; R09.02 Hypoxemia; B95.0 Streptococcus, group A, as the cause of diseases classified elsewhere; B95.62 Methicillin resistant Staphylococcus aureus infection as the cause of diseases classified elsewhere; Z68.21 Body mass index [BMI] 21.0-21.9, adult; Z87.891 Personal history of nicotine dependence
CPT/HCPCS: 36415; 36569; 73610; 73630; 73721; 80048; 80053; 80202; 81001; 83605; 83735; 84100; 84443; 85025; 85027; 85610; 85730; 86850; 86900; 86901; 86920; 87040; 87070; 87077; 87086; 87088; 87186; 87205; 87493; 87640; 88305; 88312; 92526; 92610; 93005; 97802; 97803; 99285; 99406; J7030; J7040; J7050; J7120; P9016; A4216; J0696

== ENCOUNTER → 2023-01-11 | Outpatient (REF) | payer MEDICARE, OTHER, SELFPAY ==
[2023-01-11 08:14] LABS: Absolute Neutrophil Count 5.5 X10^3/uL (2.0-7.7); Basophil# 0.08 X10^3/uL; Basophil% 0.9 % (0-1); Eosinophil# 0.67 X10^3/uL; Eosinophils% 7.8 % (0-5); Hematocrit 31.2 % (40-54); Hemoglobin 9.6 g/dL (13.0-16.5); Lymphocyte % 12.7 % (19-41); Mean Corp Hgb Conc 30.8 g/dL (32-36); Mean Corpuscular Hgb 28.2 pg (27.0-32.0); Mean Corpuscular Volume 91.8 fL (80-94); Mean Platelet Vol. 10.7 fl (6.2-12.0); Monocyte% 13.9 % (0-10); NRBC Flagged by Analyzer 0 % (0-5); Neutrophil # 5.52 X10^3/uL (2.7-7.7); Neutrophil % 63.9 % (47-70); POSITIVE MORPHOLOGY YES; Platelet Count 574 K/mm3 (150-450); RBC Distribution Width CV 19.8 % (11.6-14.6); RBC Distribution Width SD 66.5 fl (35.1-43.9); White Blood Count 8.6 K/mm3 (4.4-11.0)
[2023-01-11 08:25] LABS: Anion Gap 3 (5-15); BUN 26 mg/dL (7-18); Calcium,Total 8.4 mg/dL (8.5-10.1); Chloride 107 mmol/L (98-107); Creatinine, Serum 0.29 mg/dL (0.70-1.30); EST Glomerular Filtration Rate 321 mL/min (>60); Est Glom Filt Rate - Afr Amer 388 mL/min (>60); Glucose 123 mg/dL (74-106); Sodium Level 137 mmol/L (136-145)
[2023-01-11 08:27] LABS: Vancomycin, Trough Level 17.8 ug/mL (5.0-15.0)
[2023-01-11 08:34] LABS: Differential Indicated SCAN CRITERIA MET
[2023-01-11 09:19] LABS: Differential Comment SCANNED; Ovalocyte RARE; Polychromasia RARE
== END ==
LOC: OLS.SW 04:00
PROVIDERS: PCP Family Medicine; Referring Provider Family Medicine; Visit Provider Family Medicine
DX: M86.171 Other acute osteomyelitis, right ankle and foot (principal); M86.172 Other acute osteomyelitis, left ankle and foot
CPT/HCPCS: 36415; 80048; 80202; 85025

== ENCOUNTER → 2023-01-18 | Outpatient (REF) | payer MEDICARE, OTHER, SELFPAY ==
[2023-01-18 08:42] LABS: Absolute Lymphocyte Count 1.05 X10^3/uL (0.83-4.51); Absolute Neutrophil Count 7.4 X10^3/uL (2.0-7.7); Basophil# 0.09 X10^3/uL; Basophil% 0.9 % (0-1); Eosinophil# 0.48 X10^3/uL; Eosinophils% 4.6 % (0-5); Hematocrit 30.9 % (40-54); Hemoglobin 9.6 g/dL (13.0-16.5); Lymphocyte # 1.05 X10^3/ul (0.83-4.51); Lymphocyte % 10.1 % (19-41); Mean Corp Hgb Conc 31.1 g/dL (32-36); Mean Corpuscular Hgb 28.4 pg (27.0-32.0); Mean Corpuscular Volume 91.4 fL (80-94); Mean Platelet Vol. 10.8 fl (6.2-12.0); Monocyte% 12.5 % (0-10); NRBC Flagged by Analyzer 0 % (0-5); Neutrophil # 7.41 X10^3/uL (2.7-7.7); Neutrophil % 71.3 % (47-70); POSITIVE MORPHOLOGY YES; Platelet Count 535 K/mm3 (150-450); RBC Distribution Width CV 19.6 % (11.6-14.6); RBC Distribution Width SD 65.5 fl (35.1-43.9); Red Blood Count 3.38 M/mm3 (4.6-6.2); White Blood Count 10.4 K/mm3 (4.4-11.0)
[2023-01-18 08:49] LABS: ALB/GLOB Ratio 0.4 RATIO (0.9-2.4); AST(SGOT) 20 U/L (15-37); Alanine Aminotransfer ALT/SGPT 34 U/L (16-61); Albumin, Serum 2.1 g/dL (3.2-5.0); Alkaline Phosphatase 99 U/L (45-117); Anion Gap 4 (5-15); BUN 21 mg/dL (7-18); BUN/Creat Ratio 57.1 RATIO (10-20); Calcium,Total 8.6 mg/dL (8.5-10.1); Chloride 105 mmol/L (98-107); Creatinine, Serum 0.37 mg/dL (0.70-1.30); Differential Indicated SCAN CRITERIA MET; EST Glomerular Filtration Rate 246 mL/min (>60); Est Glom Filt Rate - Afr Amer 297 mL/min (>60); Globulin 4.8 g/dL (2.2-4.2); Glucose 131 mg/dL (74-106); Potassium 3.8 mmol/L (3.5-5.1); Protein, Total 6.9 g/dL (6.4-8.2); Sodium Level 137 mmol/L (136-145)
[2023-01-18 08:53] LABS: Vancomycin, Trough Level 17.3 ug/mL (5.0-15.0)
[2023-01-18 09:34] LABS: Anisocytosis 2+; Differential Comment SCANNED; Macrocytosis 1+; Microcytosis 1+
== END ==
LOC: OLS.SW 04:00
PROVIDERS: PCP Family Medicine; Referring Provider Family Medicine; Visit Provider Family Medicine
DX: M86.171 Other acute osteomyelitis, right ankle and foot (principal); E78.5 Hyperlipidemia, unspecified
CPT/HCPCS: 36415; 80053; 80202; 85025

== ENCOUNTER → 2023-01-25 | Outpatient (REF) | payer MEDICARE, OTHER, SELFPAY ==
[2023-01-25 09:01] LABS: Absolute Neutrophil Count 7.6 X10^3/uL (2.0-7.7); Basophil# 0.08 X10^3/uL; Basophil% 0.8 % (0-1); Eosinophil# 0.49 X10^3/uL; Eosinophils% 4.7 % (0-5); Hematocrit 29.7 % (40-54); Hemoglobin 9.5 g/dL (13.0-16.5); Lymphocyte % 9.6 % (19-41); Mean Corpuscular Hgb 29.1 pg (27.0-32.0); Mean Corpuscular Volume 91.1 fL (80-94); Mean Platelet Vol. 11.1 fl (6.2-12.0); Monocyte# 1.17 X10^3/uL; Monocyte% 11.2 % (0-10); NRBC Flagged by Analyzer 0 % (0-5); Neutrophil # 7.61 X10^3/uL (2.7-7.7); Platelet Count 523 K/mm3 (150-450); RBC Distribution Width CV 18.5 % (11.6-14.6); RBC Distribution Width SD 62.5 fl (35.1-43.9); Red Blood Count 3.26 M/mm3 (4.6-6.2); White Blood Count 10.4 K/mm3 (4.4-11.0)
[2023-01-25 09:16] LABS: ALB/GLOB Ratio 0.5 RATIO (0.9-2.4); AST(SGOT) 25 U/L (15-37); Alanine Aminotransfer ALT/SGPT 46 U/L (16-61); Albumin, Serum 2.2 g/dL (3.2-5.0); Alkaline Phosphatase 106 U/L (45-117); Anion Gap 4 (5-15); BUN 16 mg/dL (7-18); BUN/Creat Ratio 42.9 RATIO (10-20); Calcium,Total 8.8 mg/dL (8.5-10.1); Chloride 102 mmol/L (98-107); Creatinine, Serum 0.37 mg/dL (0.70-1.30); EST Glomerular Filtration Rate 242 mL/min (>60); Est Glom Filt Rate - Afr Amer 293 mL/min (>60); Globulin 4.6 g/dL (2.2-4.2); Glucose 123 mg/dL (74-106); Potassium 3.9 mmol/L (3.5-5.1); Protein, Total 6.8 g/dL (6.4-8.2); Sodium Level 133 mmol/L (136-145)
[2023-01-25 09:17] LABS: Vancomycin, Trough Level 16.5 ug/mL (5.0-15.0)
== END ==
LOC: OLS.SW 05:00
PROVIDERS: PCP Family Medicine; Visit Provider Family Medicine
DX: M86.171 Other acute osteomyelitis, right ankle and foot (principal)
CPT/HCPCS: 36415; 80053; 80202; 85025

== ENCOUNTER → 2023-03-10 | Outpatient (REF) | payer MEDICARE, OTHER, SELFPAY ==
[2023-03-10 17:08] LABS: Mucous, Urine 0 SEEN /hpf (<or=2+); Squamous Epithelial Cells - UA 0 SEEN /hpf (0-5)
[2023-03-10 17:20] LABS: Color, Urine Yellow (Yellow); Glucose, Dipstick Normal (Normal); Ketone-Dipstick Negative (Negative); Leukocyte Esterase-Dipstick 500 /ul (Negative); Nitrite-Dipstick Negative (Negative); Occult Blood-Urine 250 /ul (Negative); Protein-Dipstick 30 mg/dl (Negative); Urine Bilirubin Dipstick Negative (Negative); Urine Clarity Cloudy (Clear); Urine Urobilinogen Normal (Normal)
[2023-03-10 17:33] LABS: White Blood Cells >100 SEEN /hpf (0-5)
[2023-03-10 17:34] LABS: Red Blood Cells-Urine 10-25 SEEN /hpf (0-5)
[2023-03-10 17:35] LABS: Bacteria RARE /hpf (None Seen); Yeast-Urine 1+ /hpf (None Seen)
[2023-03-10 17:36] LABS: Transitional Epithelial - Ur 0-5 SEEN /hpf (0-5)
== END ==
LOC: OLS.SW 16:20
PROVIDERS: PCP Family Medicine; Visit Provider Family Medicine
DX: N39.0 Urinary tract infection, site not specified (principal)
CPT/HCPCS: 81001; 87077; 87086; 87088; 87186